=== PATIENT | female | born 2000 | race Caucasian/White ===

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

== ENCOUNTER 2018-10-22 22:35 | Emergency (ER) | payer OTHER, SELFPAY ==
[2018-10-22 22:36] VITALS: BP 122/84; PULSE 95; RESP 15; TEMP 36.7; O2SAT 98; BMI 21.1
--- NOTE | 2018-10-22 23:07 | CT_ITS ---
STUDY: CT BRAIN WITHOUT CONTRAST REASON FOR EXAM: Female, 18 years old. FRONTAL HEADACHE WITH RT FACIAL AND BILAT ARM NUMBNESS,NAUSEA,VOMITING AND DIZZINESS,SHIELDED HX:MIGRAINES TECHNIQUE: Transaxial CT imaging of the brain was performed without administration of intravenous contrast material. Individualized dose optimization techniques were used for this CT. COMPARISON: No relevant priors. FINDINGS: No evidence of intracranial hemorrhage, mass, infarct or hydrocephalus. No skull fracture. Mucosal thickening opacifies a single left posterior ethmoid air cell. [Visualized paranasal sinuses and mastoid air cells otherwise patent.] [Visualized extracranial soft tissues unremarkable.] CT/Brain/Head without Contrast IMPRESSION: Negative CT brain without contrast. Electronically Signed: Christophe Barahona, at 0:10 EDT Tel , Service support ,
--- NOTE | 2018-10-22 23:07 | EKG12_ITS ---
Test Reason : CP Blood Pressure : / mmHG Vent. Rate : 065 BPM Atrial Rate : 065 BPM P-R Int : 132 ms QRS Dur : 082 ms QT Int : 386 ms P-R-T Axes : 021 069 047 degrees QTc Int : 401 ms Sinus rhythm with marked sinus arrhythmia Otherwise normal ECG Confirmed by NERIS JHA, CARRIE ([id number]), book editor ROSETTA THOMPSON ([id number]) on 10/24/2018 1:33:07 PM Referred By: JEN Confirmed By:CARRIE CORDON MD
--- NOTE | 2018-10-22 23:07 | ED.VIS.HA ---
History of Present Illness Chief Complaint: Headache Informant: Patient Onset: Today - Around 6-7 hours Context: Gradual Timing: Continuous Quality: Dull - pressure Location: bifrontal/biparietal Current Severity: Moderate Maximum Severity: Moderate Worsened by: mildly worse w/ light that changes, like TV Relieved by: nothing Associated Symptoms: Nausea, Vomiting, Numbness - both hands and right side of face, Photophobia. Negative for: Visual Changes, Blurred Vision Narrative: Patient has multiple complaints and states she just got insurance and is here to have it all checked out. She is here primarily because of a headache, she states she has been having them since she was a child. She never gets numbness with her headaches, but today with this headache she has had numbness in both hands and her right face. She states that for the past 4 months she has been having sharp nonpleuritic chest pains that last 5 minutes or less every time, occur randomly with variety of situations including eating at times, and often are followed by left upper extremity numbness that then self resolves after multiple minutes. She did have 1 of those episodes earlier today, but she has none of that right now except for the headache. She states that the paresthesias are intermittent. She provides a history in terms of diagnoses, however. She states she is having heart pains that she needs checked out, tonsil stones that often make my neck hurt right here as she points to her submandibular lymph nodes which are not tender right now. Past Medical History - Allergies and Home Meds Allergies/Adverse Reactions: Allergies amoxicillin trihydrate [From Augmentin] Allergy (Verified 10/22/18 22:43) Unknown potassium clavulanate [From Augmentin] Allergy (Verified 10/22/18 22:43) Unknown Primary Care Physician: Altaf Whitten MD [Primary Care Provider] - Lives: With Family Smoking Status: Current every day smoker Drugs: None Review of Systems General: Denies: Chills, Fever, Sweats Eyes: Denies: Visual changes - bilaterally, Diplopia ENT: Denies: Rhinorrhea, Sore throat Cardiovascular: Reports: Chest pain. Denies: Palpitations, Heart racing Respiratory: Denies: Dyspnea, Cough, Dyspnea on exertion Gastrointestinal: Reports: Nausea, Vomiting. Denies: Abdominal pain, Diarrhea, Melena, Hematochezia Genitourinary: Denies: Dysuria, Hematuria, Frequency Musculoskeletal: Denies: Neck pain, Back pain, Swelling, Extremity Pain Skin: Denies: Rash, Wounds Neurological: Reports: Headache, Numbness. Denies: Weakness Physical Exam Vital Signs/Narrative: Vital Signs Temp Pulse Resp BP Pulse Ox 10/22/18 22:36 98.1 F 95 15 122/84 H 98 Inital Vital Signs reviewed: Yes General: Well nourished, Well developed, - - well-appearing, lit room, conversive Head: NC, AT Eyes: Perrl, EOMI, - - no objective photophobia ENT: Moist mucous membranes, No rhinorrhea, - - POP clear, symmetric, no trismus Neck: Supple, No Lymphadenopathy, Nontender, No Meningismus Cardiovascular: Regular rate, Regular rhythm, No murmurs, Normal S1, Normal S2. Negative for: Tachycardia Respiratory: No distress, CTA bilaterally, Chest nontender Abdomen: Soft, Nontender, Nondistended, Normal bowel sounds Back: Nontender, Normal Inspection Extremities: Nontender, No edema. Negative for: Calf Tenderness Skin: Normal color, No rash, No Trauma Neuro: Alert, Oriented x3, Cranial nerves II-XII grossly intact, Normal Strength, Normal Sensation, Normal DTR, Normal Gait Psychological: Normal affect, Normal Mood Diagnostic/Tx/Re-eval Clinical Impression(s) from Imaging Studies Brain CT 10/22/18 23:07 IMPRESSION: Negative CT brain without contrast. Electronically Signed: Christophe Barahona, at 0:10 EDT Tel , Service support , Laboratory Tests 10/22/18 10/22/18 Range/Units 23:10 23:10 WBC 7.2 (4.4-11.0) K/mm3 RBC 4.56 (4.2-5.4) M/mm3 Hgb 13.8 (12.0-15.0) g/dL Hct 41.8 (37-47) % MCV 91.7 (81-99) fL MCH 30.3 (27.0-32.0) pg MCHC 33.0 (32-36) g/dL RDW Std Deviation 40.8 (35.1-43.9) fl RDW Coeff of Pierre 12.1 (11.6-14.6) % Plt Count 173 (150-450) K/mm3 MPV 11.1 (6.2-12.0) fl Immature Gran % (Auto) 0.400 (0.0-0.9) % Neut % (Auto) 80.3 H (47-70) % Lymph % (Auto) 13.1 L (19-41) % [place]cd[place]ough % (Auto) 5.7 (0-10) % Eos % (Auto) 0.1 (0-5) % Baso % (Auto) 0.4 (0-1) % Absolute Neuts (auto) 5.7 (2.0-7.7) X10^3/uL Absolute Lymphs (auto) 0.94 (0.83-4.51) X10^3/uL Nucleated RBC % 0 (0-5) % Sodium 138 (136-145) mmol/L Potassium 4.0 (3.5-5.1) mmol/L Chloride 108 H (98-107) mmol/L Carbon Dioxide 24.0 (21.0-32.0) mmol/L Anion Gap 6 (5-15) BUN 7 (7-18) mg/dL Creatinine 0.73 (0.55-1.02) mg/dL Estim Creat Clear Calc 122.36 ml/min Est GFR (MDRD) Af Amer 131 (>60) mL/min Est GFR (MDRD) Non-Af 108 (>60) mL/min BUN/Creatinine Ratio 9.6 L (10-20) RATIO Glucose 91 (74-106) mg/dL Calcium 8.7 (8.5-10.1) mg/dL - Rhythm Strip Rhythm Strip: Sinus Rhythm Rate: 65 Ectopy: None - EKG Initial EKG Interpretation: Sinus Rhythm, No Acute Injury Pattern - normal ekg Prior: No Prior - Medical Decision Making Work-up including CT head is unremarkable. After Toradol and Reglan, her nausea is better but she still has a headache. She is well-appearing and stable for discharge home, will give her a dose of Tylenol prior to discharge, I do not think she needs any prescriptions at this time, her EKG is normal, no indication for a troponin given her symptoms and is young healthy female, esophageal etiologies could be causing her to have intermittent sharp chest discomfort, and could be also responsible for left arm discomfort, but with 5 minutes or less of pain that self resolves, occurs randomly, and without any other associated symptoms I do not think this is likely to be cardiac in etiology. Close outpatient follow-up advised. ED Disposition - Plan for ED Patient: Disposition: Home or Assisted Living Diagnosis: Intermittent chest pain, Cephalgia Instructions: HEADACHE, Unspecified Referrals: Altaf Whitten MD [Primary Care Provider] - 3-5 Days if not improving
[2018-10-22 23:16] LABS: Absolute Lymphocyte Count 0.94 X10^3/uL (0.83-4.51); Absolute Neutrophil Count 5.7 X10^3/uL (2.0-7.7); Basophil# 0.03 X10^3/uL; Basophil% 0.4 % (0-1); Eosinophil# 0.01 X10^3/uL; Eosinophils% 0.1 % (0-5); Hematocrit 41.8 % (37-47); Hemoglobin 13.8 g/dL (12.0-15.0); Lymphocyte # 0.94 X10^3/ul (4.0); Lymphocyte % 13.1 % (19-41); Mean Corpuscular Hgb 30.3 pg (27.0-32.0); Mean Corpuscular Volume 91.7 fL (81-99); Mean Platelet Vol. 11.1 fl (6.2-12.0); Monocyte# 0.41 X10^3/uL; Monocyte% 5.7 % (0-10); NRBC Flagged by Analyzer 0 % (0-5); Neutrophil # 5.74 X10^3/uL (2.7-7.7); Neutrophil % 80.3 % (47-70); Platelet Count 173 K/mm3 (150-450); RBC Distribution Width CV 12.1 % (11.6-14.6); RBC Distribution Width SD 40.8 fl (35.1-43.9); Red Blood Count 4.56 M/mm3 (4.2-5.4); White Blood Count 7.2 K/mm3 (4.4-11.0)
[2018-10-22] MEDS: Metoclopramide 10 MG/2 ML Vial IV (23:16)
[2018-10-22] MEDS: Ketorolac 30 MG/ML Syringe IV (23:16)
[2018-10-22 23:33] LABS: Anion Gap 6 (5-15); BUN 7 mg/dL (7-18); BUN/Creat Ratio 9.6 RATIO (10-20); Calcium,Total 8.7 mg/dL (8.5-10.1); Chloride 108 mmol/L (98-107); Creatinine, Serum 0.73 mg/dL (0.55-1.02); EST Glomerular Filtration Rate 108 mL/min (>60); Est Glom Filt Rate - Afr Amer 131 mL/min (>60); Estimated Creatinine Clearance 122.36 ml/min; Glucose 91 mg/dL (74-106); Sodium Level 138 mmol/L (136-145)
[2018-10-23 00:28] VITALS: BP 118/76; PULSE 84; RESP 18; O2SAT 95
[2018-10-23] MEDS: Acetaminophen 500 MG Tablet 1000 MG PO (00:31)
== END 2018-10-23 00:41 | disposition home or self-care (01) ==
PROVIDERS: Emergency Provider Emergency Medicine; Family Provider Family Medicine; PCP Family Medicine
DX: R07.89 Other chest pain (principal); R51 Headache; R11.2 Nausea with vomiting, unspecified; R20.0 Anesthesia of skin; F17.200 Nicotine dependence, unspecified, uncomplicated
CPT/HCPCS: 70450; 80048; 85025; 93005; 96374; 96375; 99284; A4216

== ENCOUNTER → 2019-01-09 12:20 | Outpatient (CLI) | payer OTHER, SELFPAY ==
[2019-01-09 13:51] LABS: hCG Titer Quant., Serum 15434 mIU/mL (1-3)
== END ==
PROVIDERS: Referring Provider Nurse Practitioner Women's Health; Visit Provider Nurse Practitioner Women's Health
DX: O20.0 Threatened abortion (principal); Z3A.00 Weeks of gestation of pregnancy not specified
CPT/HCPCS: 36415; 84702

== ENCOUNTER → 2019-01-17 10:33 | Outpatient (CLI) | payer OTHER, SELFPAY ==
[2019-01-17 09:59] VITALS: BMI 21.6
[2019-01-17 11:17] LABS: Absolute Lymphocyte Count 1.44 X10^3/uL (0.83-4.51); Absolute Neutrophil Count 4.3 X10^3/uL (2.0-7.7); Basophil# 0.03 X10^3/uL; Basophil% 0.5 % (0-1); Eosinophil# 0.03 X10^3/uL; Eosinophils% 0.5 % (0-5); Hematocrit 41.9 % (37-47); Hemoglobin 14.1 g/dL (12.0-15.0); Lymphocyte # 1.44 X10^3/ul (4.0); Lymphocyte % 22.8 % (19-41); Mean Corp Hgb Conc 33.7 g/dL (32-36); Mean Corpuscular Hgb 31.1 pg (27.0-32.0); Mean Corpuscular Volume 92.3 fL (81-99); Mean Platelet Vol. 10.6 fl (6.2-12.0); Monocyte# 0.47 X10^3/uL; Monocyte% 7.4 % (0-10); NRBC Flagged by Analyzer 0 % (0-5); Neutrophil # 4.33 X10^3/uL (2.7-7.7); Neutrophil % 68.5 % (47-70); Platelet Count 176 K/mm3 (150-450); RBC Distribution Width CV 11.5 % (11.6-14.6); RBC Distribution Width SD 39.1 fl (35.1-43.9); Red Blood Count 4.54 M/mm3 (4.2-5.4); White Blood Count 6.3 K/mm3 (4.4-11.0)
[2019-01-17 15:19] LABS: HIV - WCH Non-Reactive (Nonreactive); Hepatitis B Surface Antigen Non-Reactive (Nonreactive); Rubella IgG > 500.0 IU/mL
[2019-01-18 02:46] LABS: Rapid Plasmin Reagin (RPR) NONREACTIVE (NONREACTIVE)
== END ==
PROVIDERS: Referring Provider Nurse Practitioner Women's Health; Visit Provider Nurse Practitioner Women's Health
DX: Z34.90 Encounter for supervision of normal pregnancy, unspecified, unspecified trimester (principal)
CPT/HCPCS: 36415; 85025; 86592; 86703; 86762; 86850; 86900; 86901; 87340

== ENCOUNTER → 2019-01-19 12:23 | Outpatient (CLI) | payer OTHER, SELFPAY ==
[2019-01-10 14:39] VITALS: BMI 21.1
[2019-01-17 10:37] VITALS: BMI 21.1
--- NOTE | 2019-01-19 12:25 | US_ITS ---
STUDY: FIRST TRIMESTER OBSTETRICAL ULTRASOUND REASON FOR EXAM: Female, 18 years old . dating. LMP: November 27, 2018. TECHNIQUE: Transabdominal and Transvaginal TECHNICAL QUALITY: Adequate. PRIOR ULTRASOUND: None. FINDINGS: There is visualization of a single gestational sac in a normal intrauterine position. The mean sac diameter (MSD) measures 2.54 cm, indicating an estimated gestational age (EGA) of 7 weeks, 4 days. The gestational sac shape is within normal limits. There is a visualized yolk sac. The yolk sac measures 2.39 cm. The placenta is non-visualized. There is visualization of a live embryo. The crown-rump length (CRL) measures 1.54 cm, indicating an estimated gestational age (EGA) of 7 weeks, 6 days. There is demonstrated cardiac activity with a heart rate of 164 bpm. The estimated gestation age (EGA) by LMP is 7 weeks, 4 days. The estimated date of delivery (JEZ) by LMP is September 03, 2019. The estimated gestation age (EGA) by US is 7 weeks, 5 days. The estimated date of delivery (JEZ) by US is September 02, 2019. The uterus measures 9.1 cm x 6.2 cm x 4.4 cm. There is no demonstrated uterine fibroid. The cervix is closed. The right ovary measures 2.4 cm x 2.3 cm x 1.5 cm. There is no right ovarian cyst. There is no visualized right adnexal mass or complex lesion. The left ovary measures 3 cm x 2.6 cm x 2.2 cm. There is no left ovarian cyst. There is no visualized left adnexal mass or complex lesion. There is no fluid in the cul de sac. US/Init OB < 14Wks US IMPRESSION: Single live intrauterine gestation with a mean gestational age of 7 weeks and 4 days. Electronically Signed: Michoacano Campbell, at 8:29 EST , Service support ,
== END ==
PROVIDERS: Referring Provider Nurse Practitioner Women's Health; Visit Provider Nurse Practitioner Women's Health
DX: R58 Hemorrhage, not elsewhere classified (principal)
CPT/HCPCS: 76801

== ENCOUNTER → 2019-01-31 15:04 | Outpatient (CLI) | payer OTHER, SELFPAY ==
[2019-01-31 12:14] VITALS: BMI 21.6
[2019-01-31 18:10] LABS: Chlamydia Trachomatis by PCR Negative (Negative); Neisserai gonorrhoeae by PCR Negative (Negative); Probe Check PASS; Sample Adequacy Control PASS; Specimen Processing Control PASS
== END ==
PROVIDERS: Referring Provider Obstetrics & Gynecology; Visit Provider Obstetrics & Gynecology
DX: Z34.01 Encounter for supervision of normal first pregnancy, first trimester (principal); O26.899 Other specified pregnancy related conditions, unspecified trimester; Z3A.09 9 weeks gestation of pregnancy; Z67.91 Unspecified blood type, Rh negative
CPT/HCPCS: 87086; 87491; 87591

== ENCOUNTER 2019-04-04 17:12 | Emergency (ER) | payer OTHER, MEDICAID, SELFPAY ==
[2019-03-05 11:42] VITALS: BMI 21.6
[2019-04-04 17:15] VITALS: BP 118/76; PULSE 82; RESP 16; TEMP 36.6; O2SAT 100; BMI 23.3
--- NOTE | 2019-04-04 17:20 | ED.RN ---
pt declines to file workers comp, it takes away from our work bonus.
--- NOTE | 2019-04-04 17:21 | NURSING ---
pt on cell phone during triage process.
--- NOTE | 2019-04-04 17:43 | CT_ITS ---
STUDY: CT BRAIN WITHOUT CONTRAST REASON FOR EXAM: Female, 18 years old. LT SIDED HEADACHE, NUMBNESS LUE AND LT FACE. Pt shielded-4 months RADIATION DOSAGE (If Supplied By Facility): CTDIvol = ( 44.99 ) mGy, DLP = ( 745.49 ) mGycm TECHNIQUE: Transaxial CT imaging of the brain was performed without administration of intravenous contrast material. Individualized dose optimization techniques were used for this CT. COMPARISON: October 22, 2018 FINDINGS: Normal soft tissue structures. Normal calvarium. Normal size ventricles and extra-axial spaces for the patient''s age. Normal white matter tracts of the cerebral hemispheres. Normal basal ganglia and thalami. Normal brainstem. Normal cerebellum. There is no intracranial hemorrhage. There are no findings of an acute ischemic infarction. Normal visualized paranasal sinuses. CT/Brain/Head without Contrast IMPRESSION: Normal unenhanced CT scan of the brain. Electronically Signed: Joseluis Stallworth DO at 18:32 EST Tel [phone], Service support ,
--- NOTE | 2019-04-04 17:44 | ED.VIS.GEN ---
History of Present Illness Chief Complaint: Numb/Ting Detail of Chief Complaint: Numbness face and upper extremity on the left and right-sided headache Informant: Patient Onset: Today Context: Sudden Onset Timing: Intermittent - Duration of symptoms 10 minutes Quality: Numbness and loss of sensation Location: Left side of face and left upper extremity Current Severity: - - Resolved Maximum Severity: Severe Worsened by: Nothing Relieved by: Nothing Associated Symptoms: Right-sided headache Narrative: Patient is a 18-year-old G1, P0 female who has history of frequent headaches. She is never been diagnosed with migraines. She states she was at work. She put a box inside a box. Developed severe numbness left upper extremity and face. She states she could not feel anything with her left fingers. She then reports right-sided headache. She denied double vision, blurred vision or loss of vision. She denied ear pain, decreased hearing or ringing or ears. Denies trouble with speech or swallowing. She denied problems with balance. She denied problems with walking. Her polysomnography technologist is Dr. Dodie Soares. Dr. Dodie Soares prescribed Zofran and Reglan for her headaches. She states she is also had problems with nausea during the . She denies cardiac, respiratory or GI symptoms. Prior similar symptoms: No Recent Illness/Hospitalization: No - Past Medical History (1) Nausea/vomiting in Status: Acute Comment: fady reglan, discussed IVFs PRN. (2) Rh negative status during Status: Acute Comment: Rhogam at 28 wk and prn bleeding Past Medical History - Allergies and Home Meds Allergies/Adverse Reactions: Allergies amoxicillin trihydrate [From Augmentin] Allergy (Verified 03/05/19 11:41) Unknown potassium clavulanate [From Augmentin] Allergy (Verified 03/05/19 11:41) Unknown Primary Care Physician: Care Physician,No Primary [Primary Care Provider] - Prior records reviewed: Yes Surgical History: no surgical history Lives: With Family Smoking Status: Current every day smoker Alcohol: None Drugs: None Review of Systems General: Denies: Chills, Fever, Malaise, Subjective, Sweats Eyes: Denies: Visual changes - bilaterally, Blurred Vision - bilaterally, Diplopia ENT: Denies: Bilateral ear pain, Rhinorrhea, Sore throat Cardiovascular: Denies: Chest pain, Palpitations Respiratory: Denies: Dyspnea, Cough, Dyspnea on exertion Gastrointestinal: Denies: Abdominal pain, Nausea, Vomiting, Diarrhea, Melena, Hematochezia Genitourinary: Reports: Frequency. Denies: Dysuria, Hematuria Musculoskeletal: Denies: Myalgias, Arthralgias, Neck pain, Back pain, Swelling, Extremity Pain, -, - Skin: Denies: Rash, Wounds Neurological: Reports: Headache, Parasthesia, Numbness. Denies: Weakness Psych: Reports: Anxiety. Denies: Depression Hematologic: Denies: Easy bruising, Easy bleeding Physical Exam Vital Signs/Narrative: Vital Signs Temp Pulse Resp BP Pulse Ox 04/04/19 17:15 97.8 F 82 16 118/76 100 Inital Vital Signs reviewed: Yes General: Well nourished, Well developed, No Acute Distress Head: Normocephalic, Atraumatic Eyes: Perrl, EOMI, - - Endoscopic exam reveals normal cup-to-disc ratio. There is no papilledema.. Negative for: Pale conjunctiva, Scleral icterus ENT: Moist mucous membranes, No rhinorrhea, TM's clear Neck: Supple, Nontender, No lymphadenopathy, No JVD Cardiovascular: Regular rate, Regular rhythm, No murmurs Respiratory: No distress, CTA bilaterally, Chest nontender Abdomen: Soft, Nontender, Nondistended, Normal bowel sounds Back: Nontender, Normal Inspection Extremities: Nontender, No edema Skin: Normal color, No rash, No Trauma. Negative for: Cyanosis, Diaphoresis, Jaundice Neurological: Alert, Oriented x3, Cranial nerves II-XII grossly intact, Normal Strength, Normal Sensation, Normal DTR, Normal Gait, - - [place] testing is normal. Psychological: Normal affect, Tearful Diagnostic/Tx/Re-eval Impressions Brain CT 04/04/19 17:43 IMPRESSION: Normal unenhanced CT scan of the brain. Electronically Signed: Joseluis Stallworth DO at 18:32 EST Tel [phone], Service support , 04/04/19 17:43 Brain/Head without Contrast [CT] Stat Laboratory Results 04/04/19 04/04/19 17:58 17:58 WBC 7.5 RBC 4.14 L Hgb 13.0 Hct 38.3 MCV 92.5 MCH 31.4 MCHC 33.9 RDW Std Deviation 42.0 RDW Coeff of Pierre 12.4 Plt Count 152 MPV 11.6 Immature Gran % (Auto) 0.400 Neut % (Auto) 72.5 H Lymph % (Auto) 18.9 L [place] % (Auto) 7.5 Eos % (Auto) 0.4 Baso % (Auto) 0.3 Absolute Neuts (auto) 5.4 Absolute Lymphs (auto) 1.42 Nucleated RBC % 0 Differential Comment SCANNED Sodium 136 Potassium 4.0 Chloride 106 Carbon Dioxide 24.0 Anion Gap 6 BUN 7 Creatinine 0.69 Estim Creat Clear Calc 131.20 Est GFR (MDRD) Af Amer 138 Est GFR (MDRD) Non-Af 114 BUN/Creatinine Ratio 10.1 Glucose 80 Calcium 9.2 ET of the brain is normal. Blood work is normal. Since symptoms occurred with headache suspect this is a complex migraine. - Medical Decision Making With right-sided headache and left-sided numbness this may represent a complex migraine. This also could be related to anxiety or other cause. Was informed that 1747 that patient symptoms have reoccurred. She is complaining of right-sided headache. She has altered sensation left upper extremity. Her motor exam is abnormal. Unable to explained her symptoms however. Patient had headache with recurrence of numbness. Treated patient for migraine headache. Her neurologic symptoms resolved with resolution of her headache. She states she has seen Dr. Solis Samuels. And her polysomnography technologist is Dr. Dodie Soares. Recommended following up with both physicians and they will need to determine what can safely be given to you to treat your migraine headaches. ED Disposition - Plan for ED Patient: Disposition: Home or Assisted Living Diagnosis: Migraine with paresthesia Instructions: ED, Migraine (Classical) Referrals: Dodie Soares MD [STAFF PHYSICIAN] - Care Physician,No Primary [Primary Care Provider] - 3-5 Days Solis Mcdowell MD [NON-STAFF] - 3-5 Days
[2019-04-04 18:17] LABS: Absolute Lymphocyte Count 1.42 X10^3/uL (0.83-4.51); Absolute Neutrophil Count 5.4 X10^3/uL (2.0-7.7); Basophil# 0.02 X10^3/uL; Basophil% 0.3 % (0-1); Eosinophil# 0.03 X10^3/uL; Eosinophils% 0.4 % (0-5); Hematocrit 38.3 % (37-47); Lymphocyte # 1.42 X10^3/ul (4.0); Lymphocyte % 18.9 % (19-41); Mean Corp Hgb Conc 33.9 g/dL (32-36); Mean Corpuscular Hgb 31.4 pg (27.0-32.0); Mean Corpuscular Volume 92.5 fL (81-99); Mean Platelet Vol. 11.6 fl (6.2-12.0); Monocyte# 0.56 X10^3/uL; Monocyte% 7.5 % (0-10); NRBC Flagged by Analyzer 0 % (0-5); Neutrophil # 5.44 X10^3/uL (2.7-7.7); Neutrophil % 72.5 % (47-70); POSITIVE COUNT YES; Platelet Count 152 K/mm3 (150-450); RBC Distribution Width CV 12.4 % (11.6-14.6); Red Blood Count 4.14 M/mm3 (4.2-5.4); White Blood Count 7.5 K/mm3 (4.4-11.0)
[2019-04-04 18:18] LABS: Differential Indicated SCAN CRITERIA MET
[2019-04-04 18:21] LABS: Anion Gap 6 (5-15); BUN 7 mg/dL (7-18); BUN/Creat Ratio 10.1 RATIO (10-20); Calcium,Total 9.2 mg/dL (8.5-10.1); Chloride 106 mmol/L (98-107); Creatinine, Serum 0.69 mg/dL (0.55-1.02); EST Glomerular Filtration Rate 114 mL/min (>60); Est Glom Filt Rate - Afr Amer 138 mL/min (>60); Glucose 80 mg/dL (74-106); Sodium Level 136 mmol/L (136-145)
[2019-04-04 18:51] LABS: Differential Comment SCANNED
[2019-04-04] MEDS: Ketorolac 30 MG/ML Syringe 15 MG IV (20:26)
[2019-04-04] MEDS: DiphenhydrAMINE 50 MG/ML Syringe 25 MG IV (20:26)
[2019-04-04] MEDS: Metoclopramide 10 MG/2 ML Vial IV (20:27)
[2019-04-04 22:31] VITALS: BP 104/65; PULSE 80; RESP 16; O2SAT 100
== END 2019-04-04 22:32 | disposition home or self-care (01) ==
PROVIDERS: Emergency Provider Emergency Medicine
DX: G43.909 Migraine, unspecified, not intractable, without status migrainosus (principal); R20.2 Paresthesia of skin; R35.0 Frequency of micturition; F41.9 Anxiety disorder, unspecified; F17.200 Nicotine dependence, unspecified, uncomplicated
CPT/HCPCS: 70450; 80048; 85025; 96374; 96375; 99285; J7030; A4216

== ENCOUNTER → 2019-06-28 10:10 | Outpatient (CLI) | payer MEDICAID, SELFPAY ==
[2019-05-30 11:34] VITALS: BMI 23.3
[2019-06-28 10:47] LABS: Glucose Challenge Gest 1H 50g 106 mg/dL (70-140)
[2019-06-28 10:49] LABS: Absolute Lymphocyte Count 1.41 X10^3/uL (0.83-4.51); Absolute Neutrophil Count 4.7 X10^3/uL (2.0-7.7); Basophil# 0.02 X10^3/uL; Basophil% 0.3 % (0-1); Eosinophil# 0.06 X10^3/uL; Eosinophils% 0.9 % (0-5); Hematocrit 34.3 % (37-47); Hemoglobin 11.5 g/dL (12.0-15.0); Lymphocyte # 1.41 X10^3/ul (4.0); Lymphocyte % 20.6 % (19-41); Mean Corp Hgb Conc 33.5 g/dL (32-36); Mean Corpuscular Hgb 31.7 pg (27.0-32.0); Mean Corpuscular Volume 94.5 fL (81-99); Mean Platelet Vol. 10.6 fl (6.2-12.0); Monocyte# 0.59 X10^3/uL; Monocyte% 8.6 % (0-10); NRBC Flagged by Analyzer 0 % (0-5); Neutrophil % 68.7 % (47-70); Platelet Count 142 K/mm3 (150-450); RBC Distribution Width CV 11.7 % (11.6-14.6); RBC Distribution Width SD 40.2 fl (35.1-43.9); Red Blood Count 3.63 M/mm3 (4.2-5.4); White Blood Count 6.8 K/mm3 (4.4-11.0)
[2019-06-28 14:45] LABS: Amphetamine Urine VISTA NEGATIVE (<1000 ng/mL); Barbiturate Urine VISTA NEGATIVE (< 200 ng/mL); Benzodiazepine Urine VISTA NEGATIVE (< 200 ng/mL); Cocaine Urine VISTA NEGATIVE (< 300 ng/mL); Ecstacy Urine VISTA NEGATIVE (< 500 ng/mL); Methadone Urine VISTA NEGATIVE (< 300 ng/mL); PCP Urine VISTA NEGATIVE (< 25 ng/mL); THC Urine VISTA NEGATIVE (< 50 ng/mL); Vista UDS pH Range 6
== END ==
PROVIDERS: Nurse Practitioner Women's Health; Referring Provider Obstetrics & Gynecology; Visit Provider Obstetrics & Gynecology
DX: O26.891 Other specified pregnancy related conditions, first trimester (principal); Z3A.26 26 weeks gestation of pregnancy
CPT/HCPCS: 36415; 80307; 82950; 85025; 86850; 86900; 86901

== ENCOUNTER → 2019-08-10 14:39 | Outpatient (CLI) | payer MEDICAID, SELFPAY ==
[2019-08-10 14:08] VITALS: BMI 23.3
[2019-08-13 09:55] LABS: Hepatitis C Antibody Non-Reactive (Nonreactive)
== END ==
PROVIDERS: Visit Provider Nurse Practitioner Women's Health
DX: Z34.01 Encounter for supervision of normal first pregnancy, first trimester (principal)
CPT/HCPCS: 86803; 87081

== ENCOUNTER → 2019-08-24 15:12 | Outpatient (CLI) | payer MEDICAID, SELFPAY ==
[2019-08-24 15:06] VITALS: BMI 23.3
[2019-08-24 15:33] LABS: Absolute Lymphocyte Count 1.41 X10^3/uL (0.83-4.51); Absolute Neutrophil Count 5.5 X10^3/uL (2.0-7.7); Basophil# 0.02 X10^3/uL; Basophil% 0.3 % (0-1); Eosinophil# 0.03 X10^3/uL; Eosinophils% 0.4 % (0-5); Hematocrit 37.2 % (37-47); Hemoglobin 12.1 g/dL (12.0-15.0); Lymphocyte # 1.41 X10^3/ul (4.0); Lymphocyte % 18.4 % (19-41); Mean Corp Hgb Conc 32.5 g/dL (32-36); Mean Corpuscular Hgb 30.2 pg (27.0-32.0); Mean Corpuscular Volume 92.8 fL (81-99); Mean Platelet Vol. 11.8 fl (6.2-12.0); Monocyte# 0.59 X10^3/uL; Monocyte% 7.7 % (0-10); NRBC Flagged by Analyzer 0 % (0-5); Neutrophil # 5.54 X10^3/uL (2.7-7.7); Neutrophil % 72.3 % (47-70); Platelet Count 142 K/mm3 (150-450); RBC Distribution Width SD 40.5 fl (35.1-43.9); Red Blood Count 4.01 M/mm3 (4.2-5.4); White Blood Count 7.7 K/mm3 (4.4-11.0)
[2019-08-24 16:02] LABS: ALB/GLOB Ratio 0.7 RATIO (0.9-2.4); AST(SGOT) 15 U/L (15-37); Alanine Aminotransfer ALT/SGPT 12 U/L (13-56); Albumin, Serum 2.8 g/dL (3.2-5.0); Alkaline Phosphatase 219 U/L (45-117); Anion Gap 9 (5-15); BUN 5 mg/dL (7-18); BUN/Creat Ratio 6.1 RATIO (10-20); Calcium,Total 9.4 mg/dL (8.5-10.1); Chloride 106 mmol/L (98-107); Creatinine, Serum 0.82 mg/dL (0.55-1.02); EST Glomerular Filtration Rate 94 mL/min (>60); Est Glom Filt Rate - Afr Amer 114 mL/min (>60); Glucose 106 mg/dL (74-106); Potassium 3.8 mmol/L (3.5-5.1); Protein, Total 6.8 g/dL (6.4-8.2); Sodium Level 135 mmol/L (136-145)
== END ==
PROVIDERS: Referring Provider Obstetrics & Gynecology; Visit Provider Obstetrics & Gynecology
DX: R10.11 Right upper quadrant pain (principal)
CPT/HCPCS: 36415; 80053; 85025

== ENCOUNTER 2019-08-29 18:00 | Inpatient (IN) | payer MEDICAID, SELFPAY ==
[2019-07-20 08:13] VITALS: BMI 23.3
[2019-08-29] VITALS (44 sets, daily range): BP systolic 102–128; BP diastolic 51–81; PULSE 85–110; TEMP 36.2; O2SAT 89–100; BMI 23.3; BMI 26.8
[2019-08-29] MEDS: Lactated Ringers 1,000 ML 50 ML IV (18:30)
[2019-08-29] MEDS: Lactated Ringers 500 ML 999 ML IV (18:31)
[2019-08-29 18:49] LABS: Absolute Lymphocyte Count 1.03 X10^3/uL (0.83-4.51); Absolute Neutrophil Count 10.2 X10^3/uL (2.0-7.7); Basophil# 0.02 X10^3/uL; Basophil% 0.2 % (0-1); Eosinophils% 0.8 % (0-5); Hematocrit 34.6 % (37-47); Hemoglobin 11.4 g/dL (12.0-15.0); Lymphocyte # 1.03 X10^3/ul (4.0); Lymphocyte % 8.4 % (19-41); Mean Corp Hgb Conc 32.9 g/dL (32-36); Mean Corpuscular Hgb 30.3 pg (27.0-32.0); Monocyte# 0.88 X10^3/uL; Monocyte% 7.2 % (0-10); NRBC Flagged by Analyzer 0 % (0-5); Neutrophil # 10.18 X10^3/uL (2.7-7.7); Neutrophil % 82.7 % (47-70); Platelet Count 144 K/mm3 (150-450); RBC Distribution Width CV 12.3 % (11.6-14.6); RBC Distribution Width SD 40.9 fl (35.1-43.9); Red Blood Count 3.76 M/mm3 (4.2-5.4); White Blood Count 12.3 K/mm3 (4.4-11.0)
[2019-08-29] MEDS: fentaNYL-bupivacaine (epidural) 100 ML BAG EPIDURAL (19:49)
[2019-08-29 20:08] LABS: Probe Check PASS; Specimen Processing Control PASS
[2019-08-29] MEDS: Ondansetron 4 MG/2 ML Vial IV (21:30)
[2019-08-29] MEDS: Mag Hydrox/Al Hydrox/Simeth 30 ML UDC PO (23:23)
[2019-08-30] VITALS (34 sets, daily range): BP systolic 97–131; BP diastolic 58–83; PULSE 74–129; RESP 14–18; TEMP 36–37.2; O2SAT 92–100
[2019-08-30] MEDS: Lactated Ringers 1,000 ML 200 ML IV ×2 (00:11→05:26)
[2019-08-30] MEDS: Ondansetron 4 MG/2 ML Vial IV ×2 (01:17→05:23)
[2019-08-30] MEDS: fentaNYL-bupivacaine (epidural) 100 ML BAG EPIDURAL (01:23)
[2019-08-30] MEDS: Mag Hydrox/Al Hydrox/Simeth 30 ML UDC PO (03:46)
[2019-08-30] MEDS: proCHLORPERazine 10 MG/2 ML Vial IV (04:30)
--- NOTE | 2019-08-30 05:58 | PCM.HP.OB ---
- Problem List (1) Active labor at term Status: Acute (2) Nausea/vomiting in Status: Acute Comment: ermelinda shrestha, discussed IVFs PRN. (3) Rh negative status during Status: Acute Qualifiers: Comment: Rhogam at 28 wk and prn bleeding (4) Supervision of normal Status: Acute Qualifiers: Comment: PRR JEZ 09/03/2019 boy Riley Boyfriend-Curly (5) Status: Acute Qualifiers: Comment: declined genetic, carrier and NTD, normal anatomy (6) Kyphoscoliosis Status: Acute History Date of Admission: 08/30/19 Final JEZ: 09/03/19 Gestational age: 39 Weeks and 3 Days History of this : This is a 18 year-old, at 39 weeks gestational age presents IAL 5 cm dilated. She has had an uncomplicated and admits regular contractions increasing throughout the day with no vaginal bleeding or loss of fluid admits good movement. Medical History: Medical History (Last Reviewed 08/29/19 @ 11:52 by Thalia Tolbert) Anxiety F41.9 Surgical History: Surgical History (Last Reviewed 08/29/19 @ 11:52 by Thalia Tolbert) Ganglion cyst M67.40 H/O adenoidectomy Z90.89 History of removal of skin mole Z98.890, Z87.2 Myringotomy tube status Z96.22 Allergies amoxicillin trihydrate [From Augmentin] Allergy (Verified 08/29/19 18:13) Unknown potassium clavulanate [From Augmentin] Allergy (Verified 08/29/19 18:13) Unknown Home Medications: Home Medications ondansetron HCl 4 mg tablet 4 mg PO TID PRN #60 tab 01/10/19 multivitamin no.47-iron fum 27 mg-folate no.1 1 mg-dha 300 mg capsule 1 cap PO DAILY cap 01/17/19 metoclopramide HCl 10 mg tablet 10 mg PO TID PRN #90 tab 02/05/19 cyclobenzaprine 10 mg tablet 10 mg PO TID PRN #30 tab 07/20/19 Smoking Status: Former smoker NST - FHR Rate Baby A Baseline: 130 Variability:: Moderate Accelerations:: 15 x 15 Decelerations:: None NST Reactive:: Yes FHR Category:: Category I Uterine Activity:: Every 2 to 5 History Past Pregnancies: Past Pregnancies Delivery Date Name GA/ Weeks Outcome Route Wt Sex Labor Length Anesthesia Delivery Location Provider FOB Labs: Mom's Labs & Results 08/29/19 08/29/19 08/29/19 18:30 18:30 18:47 WBC 12.3 H RBC 3.76 L Hgb 11.4 L Hct 34.6 L MCV 92.0 MCH 30.3 MCHC 32.9 RDW Std Deviation 40.9 RDW Coeff of Pierre 12.3 Plt Count 144 L MPV 12.0 Immature Gran % (Auto) 0.700 Neut % (Auto) 82.7 H Lymph % (Auto) 8.4 L Parke % (Auto) 7.2 Eos % (Auto) 0.8 Baso % (Auto) 0.2 Absolute Neuts (auto) 10.2 H Absolute Lymphs (auto) 1.03 Nucleated RBC % 0 COVID-19 ([facility]ER) Negative Blood Type O NEGATIVE Antibody Screen POSITIVE H Antibody Identification ANTI-D Course Did the patient receive Yes care? Labs Blood Type: O RH: NEGATIVE RPR/VDRL/Syphilis Nonreactive Rubella status Immune HbSAg Negative Date Done: 01/17/19 Chlamydia Negative Gonorrhea Negative HIV/AIDS Non-Reactive Group B Strep: Negative Current Obstetrical History Gestational Diabetes No Incompetent Cervix No Infertility No IUGR No Macrosomia No Hypertension/Pre-eclampsia No Placenta Previa/Abruption No PTL/PROM No Uterine anomaly No Oligohydramnios No Polyhydramnios No Multiple gestation No Past Medical History Asthma No Diabetes No Hypertension No Heart disease No Mitral valve prolapse No Neurologic/Seizure disorder/ Yes: migraines Migraines Kidney disease No Liver disease No Varicosities No Clotting disorders/Hx of DVT No Thyroid Dysfunction No Other medical diseases No Psychiatric disorders Yes: anxiety Major trauma No Abnormal PAP smear No Sleep apnea No Mammogram in the last 2 years No Social History Marital Status: SINGLE Alleged father Curly Hx Smoking Yes Smoking Status Former smoker How long have you used n/a substances (years)? Expected Delivery Method: Spontaneous Vaginal Review of Systems Constitutional: Denies: Fever, Malaise Eyes: Denies: Blurred vision, Vision Change HEENT: Denies: Head Aches, Visual Changes Cardiovascular: Denies: Chest Pain, Palpitations Respiratory: Denies: Cough, Shortness of Breath, Wheezing Gastrointestinal: Denies: Abdominal Pain, Diarrhea, Nausea, Vomiting Genitourinary: Denies: Dysuria, Hematuria Musculoskeletal: Denies: Joint Pain, Muscle pain Skin: Denies: Lesions, Rash Neurological: Denies: Blurred vision, Focal weakness, Headaches Psychiatric: Denies: Anxiety, Depression Endocrine: Denies: Heat/ Cold Intolerance Hematologic/ Lymphatic: Denies: Easy Bruising, Easy Bleeding Physical Exam Vitals: Vital Signs Temp Pulse BP Pulse Ox 98.7 F 94 113/64 100 08/30/19 05:36 08/30/19 05:36 08/30/19 05:35 08/30/19 05:36 General: Alert, Cooperative, No apparent distress HEENT: Atraumatic, Normocephalic. Negative for: Thyromegaly, Lymphadenopathy Cardiovascular: Regular rate Lungs: Normal air movement Abdomen: Soft, Non Tender, Gravid Neurological: Deep Tendon Reflexes 2+/4 and Symmetrical, Neuro grossly intact. Negative for: Clonus DIRECTOR OF SPECIAL EVENTS: Normal external genitalia. Negative for: Vulvar lesions Estimated gestational size: Appropriate for gestational size Presentation: Cephalic Cervix Dilation (cm): 5 Assessment/Plan All Active Problems (Last Reviewed 08/29/19 @ 11:52 by Thalia Tolbert) Active labor at term (Acute) RUQ pain (Acute) Nausea/vomiting in (Acute) Rh negative status during (Acute) Supervision of normal (Acute) (Acute) Kyphoscoliosis (Acute) This is a 18 year-old, at 39 weeks gestational age presents IAL. Patient presents IAL, plan expectant management for , AROM clear fluid. Pain management: [plans epidural]. GBS negative. Management of any complications: Rh- plan RhoGam as needed [facility] and made any clinically relevant updates.
--- NOTE | 2019-08-30 06:00 | OP.PCM_ITS ---
Problem List (1) Active labor at term Status: Acute (2) Nausea/vomiting in Status: Acute Comment: ermelinda shrestha, discussed IVFs PRN. (3) Rh negative status during Status: Acute Qualifiers: Comment: Rhogam at 28 wk and prn bleeding (4) Supervision of normal Status: Acute Qualifiers: Comment: PRR JEZ 09/03/2019 enrique Lin Boyfrienrusty-Curly (5) Status: Acute Qualifiers: Comment: declined genetic, carrier and NTD, normal anatomy (6) Kyphoscoliosis Status: Acute (7) First degree perineal laceration during delivery Status: Acute (8) Vaginal delivery Status: Acute (9) Uterine atony, , without hemorrhage Status: Acute Vaginal Delivery Maternal Presentation: Active Labor -year-old G1, P0 at 39-1/2 weeks presents in active labor Amniotic Membrane Rupture Type: Artificial Amniotic Fluid Description: Clear Final JEZ: 09/03/19 Gestational age: 39 Weeks and 3 Days Date of Procedure: 08/30/19 Pre-Operative Diagnosis: In active labor Post-Operative Diagnosis: Same Surgery/ Procedure Performed: Spontaneous Vaginal Delivery Type of Anesthesia: Epidural Description of Procedure: Patient began pushing and delivered the head in the ISABEL presentation. The head was delivered atraumatically [and a loose nuchal cord ?1 was identified and easily reduced over the infant's head]. The anterior and posterior shoulders delivered without complication followed by the rest of the and the infant was placed on the maternal abdomen. Delayed cord clamping was employed for approximately 60 seconds. Cord was clamped and cut and gentle traction was applied to the cord and the placenta delivered spontaneously immediately following it was noted to be intact with three-vessel cord. The perineum and vagina were inspected and noted to have a first-degree perineal laceration repaired with 3-0 Vicryl repeat in the usual fashion. Mild uterine atony without hemorrhage was noted at delivery and treated with Pitocin and Methergine. Uterine massage. EBL was 400 cc. Patient and infant tolerated delivery well. Presentation: ISABEL Placental Delivery Description: Spontaneous Placenta Disposition: [facility] Cord Vessel Description: 3 Vessels Cord Entanglement: Around neck x 1, loose Estimated Blood Loss: 400 A gender: Male (1 minute): 8 (5 minute): 9 Episiotomy Description: None Laceration: 1st degree Medications given after delivery: IV Pitocin Complications: None Multi Select Codes - Urinary/Genital Urinary/Genital CPT Codes: 69766 Vaginal Delivery+ Care([facility])
[2019-08-30] MEDS: Oxytocin 30 units/NS 500 ml 30 UNITS/500 ML IV.SOLN 334 UNITS IV (06:32)
--- NOTE | 2019-08-30 06:45 | DCINST_ITS ---
Discharge Diet: No Restrictions Discharge Activity: Return to Normal Activity, May not drive while taking narcotic pain medications., May Shower May resume sexual activity in: 4-6 weeks Call your doctor if your incision/area has: Continuous Slow Oozing, Sudden Increased Bleeding, Increased Pain/ Swelling, Increased Redness, Foul Smelling Discharge Additional Instructions: If you experience any of the following, contact your healthcare provider. * Bleeding that soaks a pad every hour for 2 hours * Fever 100.4 or higher * Unrelieved incision or abdominal pain * Swelling, redness, discharge or bleeding from your incision or episiotomy site * Your incision begins to separate * Problems urinating (including inability to urinate or burning while urinating). * Visual changes * Severe headache * Flu-like symptoms * Pain or redness in one of both of your breasts * Pain, warmth, tenderness or swelling in your legs, especially the calf area * Frequent nausea and vomiting * Symptoms of depression or anxiety If you experience any of the following, call 911 or go to the nearest Emergency Room. * Chest pain * Problems breathing * Seizure activity * Partial or complete paralysis of a body part, slurred speech, weakness or drooping of the face, or a sudden inability to walk or hold your balance Allergies/Adverse Reactions: Allergies amoxicillin trihydrate [From Augmentin] Allergy (Verified 08/29/19 18:13) Unknown potassium clavulanate [From Augmentin] Allergy (Verified 08/29/19 18:13) Unknown Medications to take at Discharge ondansetron HCl 4 mg tablet 4 mg PO TID PRN #60 tab 01/10/19 multivitamin no.47-iron fum 27 mg-folate no.1 1 mg-dha 300 mg capsule 1 cap PO DAILY cap 01/17/19 metoclopramide HCl 10 mg tablet 10 mg PO TID PRN #90 tab 02/05/19 cyclobenzaprine 10 mg tablet 10 mg PO TID PRN #30 tab 07/20/19 Please Follow Up With: Dodie Soares MD - [phone] When: Call to make an appointment with your doctor in 6 weeks. If you had elevated Blood pressure or 4th degree laceration you will need to be seen in 2 weeks. Primary Care Physician: Care Physician,No Primary [Primary Care Provider] - Test Results: Test results from this visit will be discussed in further detail at your follow- up appointment, if applicable.
[2019-08-30] MEDS: Naproxen 250 MG Tablet 500 MG PO ×2 (07:44→20:23)
[2019-08-30] MEDS: 0.9% Saline Lock 10 ML Syringe IV (10:03)
--- NOTE | 2019-08-30 10:09 | NURSING ---
Notified Swati at Dr. Soares's of plan to order SSC due to MOB/FOB interaction with davidson. FOB held pt's leg for 2 pushes, and then said that he wasn't going to stand anymore. Stated that he just doesn't do well when he gets messed up. Appeared to be talking about his sleep schedule. He sat on the couch for a while while Salima pushed, and then fell asleep for awhile. This nurse woke him up for delivery. He sat on the couch for delivery, and through beginning of recovery. He was up at the bedside for appx. 5-10 min. talking to the patient before leaving to go home to sleep ~45 min. after delivery. Salima held the baby, doing [id number] right after delivery. She was willing to breastfeed, and a little hands-on with that at times. Pt. reported being very tired. Told that she could rest her eyes with me in the room, but she was worried about falling asleep. She fed the infant for a little over an hour. Infant was placed on the radiant warmer for assessment and meds. When weighing infant, mother was noted to be resting with her eyes closed. She opened them when the started crying, and this nurse asked if she wanted a picture of his weight. Pt. stated It's ok, just tell me what it is. Pt. sleeping while nursing finishing assessment. Infant placed next to pt's bed. Infant heard crying a little while later, and nursing into room. Mother in bed just looking at in crib. Mother had reported that she has not had sleep since 0300 on 08/29/19, except for anout 2 hrs through night. out of room with nursing for mother to rest. Out of room for appx. 35 min, settled, and was taken back to room. Salima also asking if she is allowed to have any other visitors. Reminded that only Curly was allowed to come and be with her while she is here. Offered that some family members have been viewing babe's through window. Pt. reports that her mother really wants to come and see the baby, but that she isn't ready to deal with her yet. Per Swati in the office, when Salima was seen in office 08/29/2019 in early labor, her mother became upset with her because she chose to have FOB with her vs. pt's mother. Reported there was high anxiety regarding this in office.
[2019-08-30] MEDS: Prenatal Vits Tablet 1 TABLET PO (16:32)
[2019-08-30] MEDS: Acetaminophen 500 MG Tablet 1000 MG PO (23:29)
[2019-08-31 04:30] VITALS: BP 109/73; PULSE 97
[2019-08-31 04:31] VITALS: BP 109/73; PULSE 97; RESP 16; TEMP 36.4
[2019-08-31] MEDS: Naproxen 250 MG Tablet 500 MG PO (06:48)
[2019-08-31] MEDS: Acetaminophen 500 MG Tablet 1000 MG PO (08:13)
[2019-08-31 08:16] VITALS: BP 99/66; PULSE 86; RESP 16; TEMP 36.6; O2SAT 99
[2019-08-31 08:17] VITALS: BP 99/66; PULSE 86
[2019-08-31 13:31] VITALS: BP 112/67; PULSE 100
[2019-08-31 13:40] VITALS: BP 112/67; PULSE 82; RESP 14; TEMP 36.3
--- NOTE | 2019-08-31 13:41 | PCM.PN.OB ---
Patient Problems: Active and Suspected Problems (Last Reviewed 08/29/19 @ 11:52 by Thalia Tolbert) Active labor at term (Acute) First degree perineal laceration during delivery (Acute) Vaginal delivery (Acute) Uterine atony, , without hemorrhage (Acute) Subjective: doing well no complaints pain controlled no CP SOB N V ambulating well tolerating po lochia moderate, going well - Physical Exam Vitals/I&O's: Vital Signs Temp Pulse Resp BP Pulse Ox 97.8 F 100 16 112/67 99 08/31/19 08:16 08/31/19 13:31 08/31/19 08:16 08/31/19 13:31 08/31/19 08:16 Oxygen Delivery Method Room Air Weight: 176 lb 5.917 oz Body Mass Index (BMI) 26.8 Intake and Output for Last 24 Hours 08/29/19 08/30/19 08/31/19 23:59 23:59 23:59 Intake Total 1250.83 / 1250.83 2089.17 / 2089.17 Output Total 2250 / 2250 Balance 1250.83 / 1250.83 -160.83 / -160.83 Current Medications Acetaminophen (Tylenol) 1,000 mg PO Q8H PRN PRN PRN Reason: Pain Score 1-3/10 Last Admin: 08/31/19 08:13 Dose: 1,000 mg Documented by: Bisacodyl (Dulcolax) 10 mg RECTAL UD PRN PRN Reason: If no BM Calcium Carbonate (Tums) 1,000 mg PO Q4H PRN PRN PRN Reason: INDIGESTION Dibucaine (Dibucaine) 1 applic TOPICAL TID PRN PRN; Protocol PRN Reason: Discomfort Hydrocortisone (Hytone) 1 applic TOPICAL TID PRN PRN; Protocol PRN Reason: Discomfort Methylergonovine Maleate (Methergine) 0.2 mg IM X1 PRN PRN Reason: Excess bleeding/uterine atony Naproxen (Naprosyn) 500 mg PO Q8H PRN PRN PRN Reason: Pain Score 1-3/10 Last Admin: 08/31/19 06:48 Dose: 500 mg Documented by: Ondansetron HCl (Zofran) 4 mg IV Q4H PRN PRN PRN Reason: Nausea Oxycodone HCl (Oxyir) 5 - 10 mg PO Q4H PRN PRN PRN Reason: Pain Score 4-10/10 Multivit/Folic Acid/Iron (Prenatabs Fa) 1 tablet PO DAILY@1200 LASHAY Last Admin: 08/31/19 13:38 Dose: Not Given Documented by: Senna/Docusate Sodium (Senokot-S, Alice-Colace) 1 - 2 tablet PO DAILY PRN PRN PRN Reason: Constipation Simethicone (Mylicon) 80 mg PO PCHS PRN PRN Reason: Indigestion/Stomach pain Sodium Chloride () 5 - 15 ml IV UD PRN PRN Reason: SALINE FLUSH Last Admin: 08/30/19 10:03 Dose: 10 ml Documented by: Medical Necessity - Tobacco Use Smoking Status: Former smoker Assessment/Plan All Active Problems (Last Reviewed 08/29/19 @ 11:52 by Thalia Tolbert) Active labor at term (Acute) First degree perineal laceration during delivery (Acute) Vaginal delivery (Acute) Uterine atony, , without hemorrhage (Acute) RUQ pain (Acute) Nausea/vomiting in (Acute) Rh negative status during (Acute) Supervision of normal (Acute) (Acute) Kyphoscoliosis (Acute) s/p PPD # 1 1. routine post delivery care 2. breast feeding- support given 3. rh positive 4. rubella immune
== END 2019-08-31 15:10 | disposition home or self-care (01) | DRG 560 ==
LOC: WPOUT 18:04 → WP 18:04
PROVIDERS: Admitting Provider Obstetrics & Gynecology; Referring Provider Obstetrics & Gynecology; Visit Provider Obstetrics & Gynecology
DX: O69.81X0 Labor and delivery complicated by cord around neck, without compression, not applicable or unspecified (principal); Z37.0 Single live birth; Z3A.39 39 weeks gestation of pregnancy; M41.9 Scoliosis, unspecified; Z87.891 Personal history of nicotine dependence; O26.893 Other specified pregnancy related conditions, third trimester; Z67.91 Unspecified blood type, Rh negative; O70.0 First degree perineal laceration during delivery; O62.2 Other uterine inertia
CPT/HCPCS: 59025; 59050; 85025; 86850; 86870; 86900; 86901; 87635; 99218; G2023; J7120; A4216; G0378; J2405; U0003

== ENCOUNTER → 2019-10-15 | Outpatient (CLI) | payer MEDICAID, SELFPAY ==
[2019-10-15 14:32] VITALS: BMI 26.8
[2019-10-18 10:18] LABS: HPV Reflexed? NOT INDICATED
== END | disposition home or self-care (01) ==
LOC: LABSPEC 16:09
PROVIDERS: Referring Provider Obstetrics & Gynecology; Visit Provider Obstetrics & Gynecology
DX: Z12.4 Encounter for screening for malignant neoplasm of cervix (principal)
CPT/HCPCS: 88175; G0145

== ENCOUNTER → 2020-05-05 | Outpatient (CLI) | payer MEDICAID, SELFPAY ==
[2020-05-05 15:20] VITALS: BMI 27.8
[2020-05-08 06:07] LABS: Chlamydia By Nucleic Acid AMP Negative (Negative)
[2020-05-08 08:28] LABS: Gonococcus By Nucleic Acid AMP Negative (Negative)
== END | disposition home or self-care (01) ==
LOC: LABSPEC 16:40
PROVIDERS: Referring Provider Nurse Practitioner Women's Health; Visit Provider Nurse Practitioner Women's Health
DX: Z11.3 Encounter for screening for infections with a predominantly sexual mode of transmission (principal)
CPT/HCPCS: 87491; 87591

== ENCOUNTER → 2020-05-22 | Outpatient (CLI) | payer MEDICAID, SELFPAY ==
[2020-03-26 15:09] VITALS: BMI 27.1
[2020-05-05 15:20] VITALS: BMI 27.8
== END | disposition home or self-care (01) ==
LOC: LABSPEC 16:26
PROVIDERS: PCP Family Medicine; Referring Provider Otolaryngology; Visit Provider Otolaryngology
DX: Z11.59 Encounter for screening for other viral diseases (principal)
CPT/HCPCS: 87635; C9803; U0002

== ENCOUNTER → 2020-05-26 | Outpatient (CLI) | payer MEDICAID, SELFPAY ==
[2020-05-05 15:20] VITALS: BMI 27.8
--- NOTE | 2020-05-26 10:17 | TONS_PTH ---
PATIENT: ANIYAH HUMPHREYS LOC: [facility] U#:[id number] AGE/SX: 19/ ROOM: RE05/26/[address]: Dr. Marquez Sheridan MD : 2000 BED: DIS: 05/26/2020 SPEC #: [id number] RECD: 05/27/20 15:00 STATUS: CATRACHITA FUENTES #: [id number] ALF: 05/26/20 10:[address]: Marquez Sheridan DEPT: SURGICAL PATHOLOGY RECD BY: Trinity Hand ENTERED: 05/28/20 08:42 SP TYPE: TONSILS OTHR DR: Dr. Toni De Leon MD [facility] Tissues: Tonsil, NOS Procedures: Surgery Specimen Level III HEADER OPERATION: Tonsillectomy PRE-OP DIAGNOSIS: Chronic tonsillitis, hypertrophy of tonsils TISSUE SUBMITTED: Tonsils, right pinned MICROSCOPIC DIAGNOSIS Right and left tonsils, bilateral tonsillectomies: Benign lymphoid follicular hyperplasia, consistent with chronic tonsillitis. Organisms consistent with actinomyces. AM:christy 05/29/2020 MICROSCOPIC DESCRIPTION Slides are reviewed. GROSS DESCRIPTION Received is one container labeled with the patient's name and designated tonsils - pin on right are two tonsils that in aggregate weigh 4 gm. The right tonsil has a pin on it and measures 2.5 x 1.6 x 1 cm. The left tonsil measures 2.3 x 1.5 x 1 cm. Both tonsils are similar in appearance. The external surfaces are pink-douglas, smooth, glistening and somewhat lobulated. Focally they are hemorrhagic, granular and bear cautery artifact. Serial cross sections through the tonsils reveal normal tonsillar architecture. Sections are submitted in two cassettes as follows: 1 - right tonsil, 2 - left tonsil. / DARLENE:christy 05/28/20 TC:5 CPT: 27344 x2
== END | disposition home or self-care (01) ==
LOC: LABSPEC 05-28 13:29
PROVIDERS: PCP Family Medicine; Referring Provider Otolaryngology; Visit Provider Otolaryngology
DX: J35.01 Chronic tonsillitis (principal)
CPT/HCPCS: 88304

== ENCOUNTER 2021-10-21 02:30 | Emergency (ER) | payer MEDICAID, SELFPAY ==
[2021-10-21 02:31] VITALS: BP 129/71; PULSE 90; RESP 15; TEMP 35.7; O2SAT 100; BMI 24.5
--- NOTE | 2021-10-21 02:37 | RAD_ITS ---
EXAM: XR RIGHT SECOND FINGER, 2 VIEWS CLINICAL INDICATION: trauma trauma TECHNIQUE: Frontal, lateral and oblique views of the second finger of the right hand. This report was created using [employer] report generation technology. COMPARISON: None. FINDINGS: BONES/JOINTS: There is an acute traumatic fracture of the tuft of the distal phalanx, without significant malalignment. Preservation of the joint space. No sclerotic or destructive changes observed. SOFT TISSUES: There is nonspecific soft tissue swelling. No radiopaque foreign body. RAD/Finger(s) Min 2 Views IMPRESSION: Fracture of the tuft of the distal phalanx. Electronically Signed: Simón Macdonald MD at 3:14 EDT Reading Location ID and State: [facility] / [place] , Service support ,
[2021-10-21] MEDS: Diphth,Pertuss(Acell),Tet Vac 0.5 ML Vial IM (02:48)
--- NOTE | 2021-10-21 02:57 | EDS_ITS ---
HPI History of Present Illness Chief Complaint: Upper Extremity Injury Informant: patient Narrative Narrative: 21-year-old female sustained a crush injury to her distal right index finger just prior to arrival. She was hooking up a trailer when this occurred. Un known last tetanus. Tetanus Immunization: Unknown [facility] Medical History (Updated 10/21/21 @ 03:[address] Jared Schultz DO) Anxiety Home Medications levonorgestrel 20.1 mcg/24 hrs (6 yrs) 52 mg intrauterine device (Liletta) 1 device intrauterine ONCE 05/05/20 [History Last Taken Unknown] cephalexin 500 mg capsule 500 mg PO Q6 #28 CAPSULES 10/21/21 [Rx Last Taken Unknown] hydrocodone-acetaminophen 5-325mg 5mg-325mg 1 tab PO Q6H PRN PRN Pain 3 days #10 TABLETS 10/21/21 [Rx Last Taken Unknown] Allergy/AdvReac Type Severity Reaction Status Date / Time amoxicillin trihydrate Allergy Unknown Verified 10/21/21 02:34 [From Augmentin] potassium clavulanate Allergy Unknown Verified 10/21/21 02:34 [From Augmentin] Family History Grandmother Cancer Ovarian Surgical History Ganglion cyst H/O adenoidectomy History of removal of skin mole Myringotomy tube status Social History adopted: No household members: significant other housing: house current occupational status: employed current occupation: [employer] pets and animals: No history of recent travel: Yes out of state: Yes sexually active: Yes Smoking Status: Current every day smoker tobacco type: cigarettes second hand exposure: No alcohol intake: never substance use type: does not use caffeine: Yes Type: carbonated beverages Number of servings: 5 and tea seatbelt use: never do you feel safe at home: Yes additional social history: ADDISON RUBIO ED Constitutional Constitutional ED: Denies chills or weight loss Eyes Eyes: Denies change in vision or diplopia ENT ENT ED: Denies ear pain, rhinorrhea or sore throat Cardiovascular Cardiovascular: Denies chest pain, orthopnea, palpitations or racing heartbeat Respiratory/Chest Respiratory/Chest: Denies cough, dyspnea or orthopnea Gastrointestinal Gastrointestinal: Denies abdominal pain, diarrhea, nausea or vomiting Genitourinary Genitourinary ED: Denies dysuria, hematuria or urinary frequency Musculoskeletal Musculoskeletal: Reports other Details: See history of present illness ; Denies arthralgias or myalgias Integumentary Denies abscess or rash Neurologic Neurologic: Denies headache(s) or weakness Psychiatric Psychiatric: Denies anxiety, depression, suicidal ideation or suicidal thoughts Endocrine Endocrinology: Denies polydipsia, polyphagia or polyuria Allergic/Immunologic Allergic/Immunologic ED: Denies mouth swelling, tongue swelling or urticaria EXAM Physical Exam Const Vital Signs: 10/21/21 02:31 Temperature 96.3 F L Temperature Source Oral Pulse Rate 90 Respiratory Rate 15 Blood Pressure 129/71 H Blood Pressure Mean 90 Pulse Ox 100 Oxygen Delivery Method Room Air Positive well nourished and well developed General Appearance ED: well developed HEENT Reports normocephalic, head/scalp atraumatic and moist mucous membranes Eyes PERRL and EOMs intact bilaterally Neck full ROM, no lymphadenopathy, supple and no JVD Resp normal respiratory effort and clear to auscultation bilaterally Cardio regular rate, regular rhythm and no murmurs GI normal to inspection, nondistended, normoactive bowel sounds and non-tender Palpation: soft Back/Spine no CVA tenderness and normal ROM Extremity Extremity Narrative: The distal tip of the index finger demonstrates a macerated 4 mm laceration. There is mild venous bleeding. There is no subungual hematoma. The laceration is just anterior to the fingernail. General Extremety ED: Negative for edema General Extremity: Negative for edema Neuro oriented x3 and CN's II-XII intact bilaterally Sensorium / Orientation: alert Motor Exam: strength 5/5 throughout Psych mental status grossly normal Mood & Affect: Negative for depressed or tearful Skin no rashes or lesions noted and no wounds MDM MDM MDM Narrative Medical decision making narrative: My interpretation of the plain films of the right index finger is a distal tuft fracture. Tetanus was updated with Adacel. Patient underwent digital block using bupivacaine. Wound was washed. I do not believe him to be able to sew this as there is very little skin between the laceration and the fingernail. In addition the wound is very macerated. Speaking with the patient we had shared decision making to dress the wound and let it heal by secondary intention. I think this is reasonable. Because of the associated fracture in the healing process I will be placing her on antibiotics. Also write for pain medication. Patient is given a aluminum foam splint. Return if worsening or concerns Discharge Plan Triage Chief Complaint: Upper Extremity Injury ED Provider: Jared Schultz Dx/Rx/DC Orders Clinical Impression: Open fracture of tuft of distal phalanx of finger, Crushing injury of distal finger, Finger laceration Instructions: ED Crush Injury, Hand, ED Fracture, Finger, Open Prescriptions: New hydrocodone-acetaminophen [hydrocodone-acetaminophen] 5-325 mg tablet 1 tab PO Q6H PRN PRN (Reason: Pain) 3 Days Qty: 10 0RF cephalexin [cephalexin] 500 mg capsule 500 mg PO Q6 Qty: 28 0RF No Action Liletta 20.1 mcg/24 hrs (6 yrs) 52 mg intrauterine device 1 device INTRA-UTER ONCE Rx Instructions: as a single dose Primary Care Provider: Toni De Leon Referrals: Toni De Leon MD [Primary Care Provider] - 1-2 Weeks Disposition Disposition: Home, Self Care
[2021-10-21] MEDS: Bupivacaine Mpf 0.5% 30 ML VIAL INFILT (03:26)
[2021-10-21] MEDS: Cephalexin 250 MG Capsule 500 MG PO (03:31)
== END 2021-10-21 03:37 | disposition home or self-care (01) ==
PROVIDERS: Emergency Provider Emergency Medicine; PCP Family Medicine; Visit Provider Emergency Medicine
DX: S62.630B Displaced fracture of distal phalanx of right index finger, initial encounter for open fracture (principal); S67.190A Crushing injury of right index finger, initial encounter; X58.XXXA Exposure to other specified factors, initial encounter; F17.210 Nicotine dependence, cigarettes, uncomplicated; Z23 Encounter for immunization
CPT/HCPCS: 64450; 73140; 90471; 99285

== ENCOUNTER 2022-04-14 10:24 | Outpatient (RCR) | payer MEDICAID, SELFPAY ==
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
--- NOTE | 2022-06-10 11:57 | HP.PT.NRP ---
ANIYAH HUMPHREYS was seen in my office for initial evaluation on 04/14/22. The following Plan of Care was established for this patient: Initial Frequency: 2-3x /Week Initial Duration: 4-6 Weeks Patient/Client Instruction: Educate patient on: Condition, Plan of Care, Risk Factors For the Purpose of:: To improve self management Therapeutic Exercise to Include: Strength training, Body mechanics, Postural training, Flexibilty training, Neuromotor development, In an aquatic setting, Dynamic Lumbar Stabilization, Scapular Strength/Stabilization For the Purpose of:: To decrease pain, To increase ROM, To improve muscle performance and motor function, To increase tolerance to activity/condition/position, To improve ability of physical actions for home/community/work/leisure TENS: Yes IF ES: Yes Cryotherapy (ice pack, ice massage): Yes Thermo therapy (hot pack): Yes Ultrasound (thermal/non thermal): Yes For the Purpose of:: To decrease pain, To improve nutrient delivery to tissue This patient was last seen in our office 04/14/22. Pertinent comments regarding their Physical therapy will appear below: This patient has not returned to Physical Therapy and is appropriate to return to MD for further follow-up as needed. At this point I will be discontinuing this patient from physical therapy. I would be happy to see this patient again in the future if found appropriate by the physician. Thank you! Gloria Garcia, PT, Cert MDT Balance/Gait/Functional tests - Balance/Special Test Scores Oswestry Neck Score: 14
== END 2022-04-14 19:00 | disposition home or self-care (01) ==
LOC: PT 10:24
PROVIDERS: PCP Family Medicine
DX: G89.29 Other chronic pain; M40.204 Unspecified kyphosis, thoracic region
CPT/HCPCS: 97162

== ENCOUNTER 2022-04-18 17:31 | Emergency (ER) | payer MEDICAID, SELFPAY ==
[2022-04-18 17:32] VITALS: BP 93/52; PULSE 68; RESP 16; TEMP 36.2; O2SAT 100; BMI 25.1
--- NOTE | 2022-04-18 17:48 | RAD_ITS ---
STUDY: X-RAY - RIGHT TIBIA AND FIBULA REASON FOR EXAM: Female, 21 years old. Patient with hepatopetal and 12 foot ladder with limited down the wall patient falling onto concrete. Pain in the bilateral legs and right foot. TECHNIQUE: 2 view(s) of the tibia and fibula were obtained. COMPARISON: None. FINDINGS: Normal visualized tibia. Normal visualized fibula. There is no acute fracture, dislocation or destructive osseous pathology. The knee and ankle appear intact. The soft tissue structures are unremarkable. RAD/Tibia & Fibula 2 Views IMPRESSION: Normal x-ray examination of the right tibia and fibula. Electronically Signed: Faisal Mckeon DO at 19:04 EST ,
--- NOTE | 2022-04-18 17:49 | ED.VIS.FALL ---
HPI HPI - Fall History of Present Illness Chief Complaint: Fall Informant: patient Narrative Narrative: Fall down 12 steps bladder prior to arrival. States leaned against a barn door when he skidded straight down. She landed on her knees and elbows. No head injuries. No loss of conscious. No anticoagulation medicines. Was able to get up and come by private vehicle however increasing pain right lower leg and foot. Tetanus was this past summer. History of kyphosis of the back therefore difficulty movement of the arm such chronic. No new symptoms there. No chest or abdominal pain. No headache. No neck pain. Pain to the right leg. Tetanus Immunization: <5 years [facility] Medical History (Updated 04/18/22 @ 20:[address] Kuldeep Emanuel DO) Anxiety Home Medications hydrocodone-acetaminophen 5-325mg 5mg-325mg 1 tab PO Q6H PRN PRN Pain 3 days #12 TABLETS 04/18/22 [Rx Last Taken Unknown] Allergy/AdvReac Type Severity Reaction Status Date / Time amoxicillin trihydrate Allergy Unknown Verified 04/18/22 17:34 [From Augmentin] potassium clavulanate Allergy Unknown Verified 04/18/22 17:34 [From Augmentin] Family History Grandmother Cancer Ovarian Surgical History Ganglion cyst H/O adenoidectomy History of removal of skin mole Myringotomy tube status Social History adopted: No household members: significant other housing: house current occupational status: employed current occupation: [email or web address] pets and animals: No history of recent travel: Yes out of state: Yes sexually active: Yes Smoking Status: Current every day smoker tobacco type: cigarettes second hand exposure: No alcohol intake: never substance use type: does not use caffeine: Yes Type: carbonated beverages Number of servings: 5 and tea seatbelt use: never do you feel safe at home: Yes additional social history: FAMILIA- Curly RUBIO ED Constitutional Constitutional ED: Denies chills, fever(s) or sweats Eyes Eyes: Denies change in vision ENT ENT ED: Denies dysphagia or sore throat Cardiovascular Cardiovascular: Denies chest pain, leg edema, palpitations or racing heartbeat Respiratory/Chest Respiratory/Chest: Denies cough, dyspnea or dyspnea on exertion Gastrointestinal Gastrointestinal: Denies abdominal pain, diarrhea, nausea or vomiting Genitourinary Genitourinary ED: Denies dysuria, hematuria or urinary frequency Musculoskeletal Musculoskeletal: Reports extremity pain; Denies back pain or neck pain Integumentary Denies rash or wounds Neurologic Neurologic: Denies headache(s), paresthesias or weakness EXAM Physical Exam Const Vital Signs: 04/18/22 17:32 04/18/22 18:02 Temperature 97.2 F L Temperature Source Temporal Pulse Rate 68 Respiratory Rate 16 Respiratory Effort Normal Non-Labored Blood Pressure 93/52 L Blood Pressure Mean 65 Pulse Ox 100 Oxygen Delivery Method Room Air Positive well nourished and well developed Constitutional Narrative: GCS 15, uncomfortable shaking due to pain to the right lower leg. General Appearance ED: well developed HEENT Reports TM's normal bilaterally and moist mucous membranes normocephalic and atraumatic Eyes PERRL, EOMs intact bilaterally and conjunctivae normal General Eye ED: Yes normal appearance of both eyes Neck no lymphadenopathy and supple General: Negative for tenderness Chest Wall Chest: Negative for tenderness Resp normal respiratory effort and normal air movement Effort and Inspection: symmetric chest movement; Negative for respiratory distress Cardio regular rate, regular rhythm and no murmurs Peripheral Pulses: pulses 2+ throughout GI normal to inspection, nondistended, normoactive bowel sounds and non-tender Palpation: Negative for guarding or rebound tenderness present Back/Spine no CVA tenderness and no thoracic nor lumbar tenderness Back/Spine Narrative: No step-offs. Extremity Extremity Narrative: Right lower extremity: Negative logroll. No patellar tenderness, no deformities there is a 3 cm horizontal laceration infrapatellar towards the insertion, patient had decreased extensor mechanism, there was bleeding controlled with pressure. There is no deformities. There is no ankle tenderness. There is midfoot tenderness. There is no deformities. Skin intact distally. Neuro vas intact distally. Left lower extremity: Negative logroll, knee extensor mechanism intact. There is abrasion at the anterior proximal tibia with no active bleeding. No ankle or foot tenderness. Neuro vas intact distally. Upper extremity full range of motion upper extremity without any pain or discomfort. Pulses intact distally. General Extremety ED: Negative for edema or tenderness General Extremity: Negative for edema Neuro oriented x3 and no sensory deficits noted Sensorium / Orientation: awake and alert Skin no rashes or lesions noted and no wounds MDM MDM MDM Narrative Medical decision making narrative: Interventions / MDM: Differential diagnosis:Right lower leg fracture, patellar ligament disruption, foot sprain, foot fracture, laceration Diagnosis considered but do not suspect:Compartment syndrome, however no deformities and soft compartments throughout. My EKG interpretation: N/A Imaging independently reviewed and interpreted by myself: Right tib-fib 2 views negative for fracture. Right foot 3 views fracture distal phalanx great toe fracture proximal phalanx second and third toes. External documents reviewed: N/A Test considered but not ordered:N/A ED course: Patient fall from 12 step ladder. GCS 15. Injury right lower leg concerning patellar ligament exposure she has pain with extensor for no full ruptures possible small tears. Also injury to the right foot. X-rays tib-fib was negative right foot with toe fractures 1 through 3 that was closed. She initially treated with fentanyl IM. Wound was copiously washed and sutured with wound care discussed. She is placed in a knee immobilizer. I discussed with on-call orthopedist Dr. Gonsalez who will follow up tomorrow. Bernardo wrap to the ankle and foot along with a postop shoe. Crutches provided. Meds to bed with hydrocodone to use as needed. All questions were answered. Re-evaluation: stable Disposition discussed with patient/family/significant other: Patient and family Case discussed with consulting clinician:Orthopedics, Dr. Gonsalez Procedure note: Verbal consent. Normal sterile conditions. Lidocaine 1% epinephrine 4 cc used for local analgesia. Copiously flushed with normal saline, wound was deep with visualization of the patellar ligament at the insertion. There is no clear rupture is noted. Wound was repaired using a total of 4, 4-0 nylon simple interrupted sutures with good approximation. Antibiotic ointment and dressing placed by myself. Patient tolerated procedure well. Radiography Diagnostic Testing: Clinical Impression(s) from Imaging Studies Tibia/Fibula X-Ray 04/18/22 17:48 IMPRESSION: Normal x-ray examination of the right tibia and fibula. Electronically Signed: Faisal Mckeon DO at 19:04 EST Reading Location ID and State: [address] [place] [address] Tel [phone], Service support , Foot X-Ray 04/18/22 18:40 IMPRESSION: 1. Comminuted mildly displaced fractures of the bases of the second and third proximal phalanges with associated soft tissue swelling. Electronically Signed: Faisal MckeonDO at 19:03 EST Reading Location ID and State: [address] [place] [address] Tel [phone], Service support , ADDENDUM: 04/18/22 2100 IMPRESSION: undefined Discharge Plan Triage Chief Complaint: Fall ED Provider: Kuldeep Emanuel Dx/Rx/DC Orders Clinical Impression: Laceration of right knee with tendon involvement, Contusion of leg, right, Right foot sprain, Toe fracture, right Instructions: ED Soft Tissue Contusion, ED Foot Sprain, ED Laceration Extremity, ED Fracture, Toe, Closed Prescriptions: New hydrocodone-acetaminophen [hydrocodone-acetaminophen] 5-325 mg tablet 1 tab PO Q6H PRN PRN (Reason: Pain) 3 Days Qty: 12 0RF Primary Care Provider: Toni De Leon Referrals: Toni De Leon MD [Primary Care Provider] - Solis Gonsalez MD [Med Staff - Active Staff] - 1 Day Activity Restrictions/Additional Instructions: Laceration, patellar ligament see no clear ruptures, pain with extension of knee in that region. Wound care as discussed knee immobilizer for comfort. X-ray of the leg was negative x-ray of the foot Notes toe fracture of the great toe second and third toe at the base. Bernardo wrap to the foot. Postop shoe. Use pain medicine as prescribed. Follow-up with Dr. Gonsalez. Call tomorrow to be seen. Disposition Disposition: Home, Self Care Discharge Date/Time: 04/18/22 20:54
[2022-04-18] MEDS: fentaNYL 100 MCG/2 ML Ampul 50 MCG IM (17:57)
--- NOTE | 2022-04-18 18:40 | RAD_ITS ---
STUDY: X-RAY - RIGHT FOOT CLINICAL: Female, 21 years old. Injury. TECHNIQUE: 3 view(s) of the foot. COMPARISON: None. FINDINGS: Normal talus, calcaneus, and tarsal bones. Normal visualized subtalar, talonavicular, calcaneocuboid, tarsal and tarsometatarsal articulations. Normal metatarsi. Normal metatarsophalangeal joint of the great toe. Normal tibial and fibular sesamoid bones. Normal interphalangeal joint of the great toe. Normal phalanges of the great toe. Normal second through fifth metatarsophalangeal joints. There are mildly displaced fractures through the bases of the second and third proximal phalanges. Otherwise normal interphalangeal joints and phalanges of the lesser toes. Soft tissue swelling about the mid and forefoot. RAD/Foot min 3 Views IMPRESSION: 1. Comminuted mildly displaced fractures of the bases of the second and third proximal phalanges with associated soft tissue swelling. Electronically Signed: Faisal Mckeon DO at 19:03 EST ,
--- NOTE | 2022-04-18 19:39 | CON.PCM.OR_ITS ---
HPI Consult Data Date of Consult: 04/18/22 HPI Narrative HPI Narrative: ANIYAH HUMPHREYS, is a 21 F who presents with a fall onto the knee, 2cm abrasion and foot pain. Called by ED physician 730pm. [facility] Medical History (Updated 04/18/22 @ 19:[address] Kuldeep Emanuel DO) Anxiety Home Medications hydrocodone-acetaminophen 5-325mg 5mg-325mg 1 tab PO Q6H PRN PRN Pain 3 days #12 TABLETS 04/18/22 [Rx Last Taken Unknown] Allergy/AdvReac Type Severity Reaction Status Date / Time amoxicillin trihydrate Allergy Unknown Verified 04/18/22 17:34 [From Augmentin] potassium clavulanate Allergy Unknown Verified 04/18/22 17:34 [From Augmentin] Family History Grandmother Cancer Ovarian Surgical History Ganglion cyst H/O adenoidectomy History of removal of skin mole Myringotomy tube status Social History adopted: No household members: significant other housing: house current occupational status: employed current occupation: [employer] pets and animals: No history of recent travel: Yes out of state: Yes sexually active: Yes Smoking Status: Current every day smoker tobacco type: cigarettes second hand exposure: No alcohol intake: never substance use type: does not use caffeine: Yes Type: carbonated beverages Number of servings: 5 and tea seatbelt use: never do you feel safe at home: Yes additional social history: ADDISON Rawls Vital Signs Vital Signs Vital Signs: 04/18/22 17:32 04/18/22 18:02 Temperature 97.2 F L Temperature Source Temporal Pulse Rate 68 Respiratory Rate 16 Respiratory Effort Normal Non-Labored Blood Pressure 93/52 L Blood Pressure Mean 65 Pulse Ox 100 Oxygen Delivery Method Room Air Weight Weight: 170 lb Body Mass Index (BMI) 25.1 Physical Exam Narrative per ED physician Dr. Emanuel small 2cm anterior knee abrasion, did washout, able to SLR and NVI with mild foot pain. Radiology Impression Tibia/Fibula X-Ray 04/18/22 17:48 IMPRESSION: Normal x-ray examination of the right tibia and fibula. Electronically Signed: Faisal MckeonDO at 19:04 EST , Foot X-Ray 04/18/22 18:40 IMPRESSION: 1. Comminuted mildly displaced fractures of the bases of the second and third proximal phalanges with associated soft tissue swelling. Electronically Signed: Faisal MckeonDO at 19:03 EST Reading Location ID and State: [facility] / [place] Tel [phone], Service support , Assessment & Plan Assessment/Plan (1) Contusion of leg, right: PLAN: 21 F soft tissue abrasion knee, with toe fractures 2 and 3 proximal phalanx on same side. No sign of patellar tendon injury per ED physician. Not asked to present to formally evaluate. No fracture on knee, ok for immobilizer and FU early this week in clinic to check wound and double check ok to do SLR. Also has displaced intra articular toe phalanx fractures. Typically treated non operative, but would recommend stiff soled shoe or orthosis boot for now, and further discussion on options in clinic.
== END 2022-04-18 20:54 | disposition home or self-care (01) ==
PROVIDERS: Emergency Provider Emergency Medicine; PCP Family Medicine; Visit Provider Emergency Medicine
DX: S81.011A Laceration without foreign body, right knee, initial encounter (principal); W11.XXXA Fall on and from ladder, initial encounter; M40.209 Unspecified kyphosis, site unspecified; F17.210 Nicotine dependence, cigarettes, uncomplicated; S96.911A Strain of unspecified muscle and tendon at ankle and foot level, right foot, initial encounter; S80.11XA Contusion of right lower leg, initial encounter; S92.424A Nondisplaced fracture of distal phalanx of right great toe, initial encounter for closed fracture
CPT/HCPCS: 12002; 73590; 73630; 96372; 99284

== ENCOUNTER → 2022-06-07 | Outpatient (CLI) | payer MEDICAID, SELFPAY ==
[2022-06-09 22:06] LABS: Chlamydia By Nucleic Acid AMP Negative (Negative)
[2022-06-10 14:19] LABS: Gonococcus By Nucleic Acid AMP Negative (Negative)
[2022-06-14 16:15] LABS: HPV Reflexed? NOT INDICATED
== END | disposition home or self-care (01) ==
LOC: LABSPEC 13:24
PROVIDERS: PCP Family Medicine; Referring Provider Registered Nurse; Visit Provider Registered Nurse
DX: Z01.419 Encounter for gynecological examination (general) (routine) without abnormal findings (principal)
CPT/HCPCS: 87491; 87591; 88175; G0145

== ENCOUNTER 2022-07-12 04:13 | Emergency (ER) | payer MEDICAID, SELFPAY ==
[2022-07-12 04:13] VITALS: BP 122/72; PULSE 96; RESP 16; TEMP 36.7; O2SAT 100; BMI 24.5
--- NOTE | 2022-07-12 04:43 | CT_ITS ---
EXAM: CT ABDOMEN AND PELVIS WITH INTRAVENOUS CONTRAST CLINICAL INDICATION: llq pain llq pain. Nausea and vomiting. Negative test. TECHNIQUE: Helically acquired images were obtained of the abdomen and pelvis with intravenous contrast. This CT exam was performed using one or more of the following dose reduction techniques: automated exposure control, adjustment of the mA and/or kV according to patient size, and/or use of iterative reconstruction technique. CONTRAST: IV 100mL [id number]-370 RADIATION DOSE: CTDIvol = 9.05 mGy, DLP = 606.83 mGy-cm COMPARISON: No relevant prior studies available. FINDINGS: LOWER THORAX: Unremarkable. Lung bases are clear. No cardiomegaly. No significant pericardial effusion. ABDOMEN: LIVER: Unremarkable. Homogeneous. No focal mass. GALLBLADDER AND BILE DUCTS: Unremarkable. No calcified gallstones. No gallbladder distention or wall edema. No intra- or extrahepatic biliary ductal dilation. PANCREAS: Unremarkable. No focal cystic or solid mass. SPLEEN: The spleen is mildly enlarged. ADRENALS: Unremarkable. No nodules. KIDNEYS AND URETERS: Unremarkable. Normal renal size and position. No hydronephrosis. STOMACH AND BOWEL: There is mildly prominent colonic feces, which may represent constipation. No stomach or bowel distention. No focal inflammatory change. PELVIS: APPENDIX: A normal appendix is seen on axial images 78-82. BLADDER: Unremarkable. REPRODUCTIVE: There is a T-shaped IUD which is asymmetrically positioned in the uterine fundus. The left arm of the IUD extends through the uterine wall. There is a 2.1 cm simple appearing left ovarian cyst. No further evaluation is necessary. ABDOMEN and PELVIS: INTRAPERITONEAL SPACE: Unremarkable. No ascites or other fluid collection. No free air. BONES/JOINTS: Unremarkable. No suspicious lytic or blastic abnormality. SOFT TISSUES: Unremarkable. No discrete abdominal or pelvic wall hernia. VASCULATURE: Unremarkable. Abdominal aorta is non-dilated. LYMPH NODES: Unremarkable. No enlarged lymph nodes. CT/Abdomen/Pelvis W IV Cont ONLY IMPRESSION: 1. IUD is asymmetrically positioned in the uterine fundus. Left arm of the IUD protrudes through the uterine wall. 2. 2.1 cm simple appearing left ovarian cyst. No further evaluation is necessary. 3. Mild splenomegaly. 4. Mildly prominent colonic feces may represent constipation. 5. No evidence for acute pathology. Electronically Signed: Simón Macdonald MD at 5:54 EDT Reading Location ID and State: [facility] / [place] , Service support ,
--- NOTE | 2022-07-12 04:44 | EX.ED.DYSGE1 ---
HPI History of Present Illness Chief Complaint: Abd Pain Informant: patient Narrative Narrative: Sudden pain in left lower quadrant waking her at 2:30 in the morning. Nausea and vomiting due to pain. No urinary symptoms. Last menstrual period 2 weeks ago. Cannot recall her last bowel movement however is having flatus. Denies abdominal surgeries. Denies fevers. Denies history ovarian cyst. Denies history of kidney stones. Prior similar symptoms: No PFSH PFSH Medical History Anxiety Kyphosis Pain in left tibia Home Medications meloxicam 7.5 mg tablet 7.5 mg PO BID PRN pain #20 tabs 04/19/22 [Rx Last Taken Unknown] fluconazole 150 mg tablet (Diflucan) 150 mg PO Q3D 2 doses #2 tabs 06/07/22 [Rx Last Taken Unknown] levonorgestrel 20.4 mcg/24 hrs (8 yrs) 52 mg intrauterine device (Liletta) 1 device intrauterine ONCE 06/07/22 [History Last Taken Unknown] magnesium oxide 200 mg PO DAILY #30 tabs 06/07/22 [Rx Last Taken Unknown] Allergy/AdvReac Type Severity Reaction Status Date / Time amoxicillin trihydrate Allergy Unknown Verified 07/12/22 04:16 [From Augmentin] potassium clavulanate Allergy Unknown Verified 07/12/22 04:16 [From Augmentin] Family History Grandmother Cancer, Onset Age: 27 Ovarian Grandmother Cancer, Onset Age: 60 ovarian Surgical History Ganglion cyst H/O adenoidectomy History of removal of skin mole Myringotomy tube status Social History adopted: No household members: significant other housing: house current occupational status: employed current occupation: [employer] pets and animals: No history of recent travel: Yes out of state: Yes sexually active: Yes Smoking Status: Current every day smoker tobacco type: cigarettes second hand exposure: No alcohol intake: never substance use type: does not use caffeine: Yes Type: carbonated beverages Number of servings: 5 and tea what type of physical activity do you participate in: none seatbelt use: never do you feel safe at home: Yes additional social history: BF- Curly RUBIO ED Constitutional Constitutional ED: Denies chills, fever(s) or sweats Eyes Eyes: Denies change in vision ENT ENT ED: Denies dysphagia or sore throat Cardiovascular Cardiovascular: Denies chest pain, leg edema, palpitations or racing heartbeat Respiratory/Chest Respiratory/Chest: Denies cough, dyspnea or dyspnea on exertion Gastrointestinal Gastrointestinal: Reports abdominal pain, nausea and vomiting; Denies diarrhea Genitourinary Genitourinary ED: Denies dysuria, hematuria or urinary frequency Musculoskeletal Musculoskeletal: Denies back pain, extremity pain or neck pain Integumentary Denies rash or wounds Neurologic Neurologic: Denies headache(s), paresthesias or weakness EXAM Physical Exam Const Vital Signs: 07/12/22 04:13 07/12/22 06:25 Temperature 98.0 F Temperature Source Temporal Pulse Rate 96 66 Respiratory Rate 16 18 Blood Pressure 122/72 H 120/70 Blood Pressure Mean 88 Pulse Ox 100 100 Oxygen Delivery Method Room Air Positive well nourished and well developed General Appearance ED: well developed and NAD HEENT Reports moist mucous membranes normocephalic and atraumatic Eyes PERRL, EOMs intact bilaterally and conjunctivae normal General Eye ED: Yes normal appearance of both eyes Neck no lymphadenopathy and supple General: Negative for tenderness Chest Wall Chest: Negative for tenderness Resp normal respiratory effort and normal air movement Effort and Inspection: symmetric chest movement; Negative for respiratory distress Cardio regular rate, regular rhythm and no murmurs Peripheral Pulses: pulses 2+ throughout GI normal to inspection, nondistended, normoactive bowel sounds GI Narrative: Left lower quadrant tenderness, no pelvic tenderness. Tender rating to the left side. No rash Palpation: Negative for guarding or rebound tenderness present Back/Spine no CVA tenderness and no thoracic nor lumbar tenderness Extremity normal to inspection General Extremety ED: Negative for edema or tenderness General Extremity: Negative for edema Neuro oriented x3 and no sensory deficits noted Sensorium / Orientation: awake and alert Skin no rashes or lesions noted and no wounds MDM MDM MDM Narrative Medical decision making narrative: Interventions / MDM: Differential diagnosis: Knee stone, ovarian cyst, colitis Diagnosis considered but do not suspect: N/A My EKG interpretation: N/A Imaging independently reviewed and interpreted by myself: CT scan abdomen pelvis IV contrast: Simple left ovarian cyst 2.1 cm. No hydro-. No inflammatory findings. External documents reviewed: N/A Test considered but not ordered:N/A ED course: Patient tender left lower quadrant, IV established fluids Zofran Toradol given. Abdominal labs normal. Normal and negative. CT the scan ordered for further evaluation. Re-evaluation: 0615: Much more comfortable. Results of CT 2.1 cm left ovarian cyst. No other acute pathology. Patient on meloxicam and Dale at home for her kyphosis. She follows [facility]. She will follow-up with them. Return precautions. All questions were answered. Disposition discussed with patient/family/significant other: Patient Case discussed with consulting clinician: N/A Lab Data Attestation: I reviewed the patient's lab results. Labs: Laboratory Results - last 24 hr 07/12/22 07/12/22 07/12/22 04:42 04:50 04:50 WBC 5.5 RBC 4.38 Hgb 13.6 Hct 40.6 MCV 92.7 MCH 31.1 MCHC 33.5 RDW Std Deviation 40.1 RDW Coeff of Pierre 11.8 Plt Count 155 MPV 10.0 Immature Gran % (Auto) 0.200 Neut % (Auto) 62.2 Lymph % (Auto) 29.9 [place] % (Auto) 6.2 Eos % (Auto) 1.3 Baso % (Auto) 0.2 Absolute Neuts (auto) 3.4 Absolute Lymphs (auto) 1.63 Nucleated RBC % 0 Sodium 140 Potassium 4.0 Chloride 108 H Carbon Dioxide 26.0 Anion Gap 6 BUN 12 Creatinine 0.56 Estim Creat Clear Calc 157.61 Est GFR (MDRD) Af Amer 172 Est GFR (MDRD) Non-Af 142 BUN/Creatinine Ratio 21.5 H Glucose 114 H Calcium 8.8 Total Bilirubin 0.40 AST 13 L ALT 18 Alkaline Phosphatase 52 Total Protein 6.2 L Albumin 3.6 Globulin 2.6 Albumin/Globulin Ratio 1.4 Lipase 16 Urine Color Yellow Urine Clarity Clear Urine pH 6.5 Ur Specific [place] 1.015 Urine Protein Negative Urine Glucose (UA) Normal Urine Ketones Negative Urine Occult Blood Negative Urine Nitrite Negative Urine Bilirubin Negative Urine Urobilinogen 1 H Ur Leukocyte Esterase Negative Urine RBC 0 SEEN Urine WBC 0 SEEN Ur Squamous Epith Cells 0 SEEN Urine Bacteria 3+ Urine Mucus 0 SEEN Urine Test Negative Radiography Diagnostic Testing: Clinical Impression(s) from Imaging Studies Abdomen/Pelvis CT 07/12/22 04:43 IMPRESSION: 1. IUD is asymmetrically positioned in the uterine fundus. Left arm of the IUD protrudes through the uterine wall. 2. 2.1 cm simple appearing left ovarian cyst. No further evaluation is necessary. 3. Mild splenomegaly. 4. Mildly prominent colonic feces may represent constipation. 5. No evidence for acute pathology. Electronically Signed: Simón Macdonald MD at 5:54 EDT , Discharge Plan Triage Chief Complaint: Abd Pain ED Provider: Kuldeep Emanuel Dx/Rx/DC Orders Clinical Impression: Cyst of left ovary, Abdominal pain, LLQ Instructions: ED Ovarian Cyst Prescriptions: No Action meloxicam 7.5 mg tablet 7.5 mg PO BID PRN (Reason: pain) Qty: 20 0RF Liletta 20.4 mcg/24 hrs (8 yrs) 52 mg intrauterine device 1 device intrauterine ONCE Rx Instructions: as a single dose magnesium oxide 200 mg magnesium tablet 200 mg PO DAILY Qty: 30 12RF fluconazole [Diflucan] 150 mg tablet 150 mg PO Q3D Qty: 2 0RF Primary Care Provider: Toni De Leon Referrals: Toni De Leon MD [Primary Care Provider] - Dodie Soares MD [Med Staff - Active Staff] - 1 Week Activity Restrictions/Additional Instructions: 2.1 cm left ovarian cyst seen on CT. Labs stable. hCG negative. Continue your home pain medicines as needed. Follow-up with [facility] outpatient evaluation. Return if worsening symptoms. Disposition Disposition: Home, Self Care Discharge Date/Time: 07/12/22 06:26
[2022-07-12] MEDS: 0.9% Normal Saline 1,000 ML 125 ML IV (04:58)
[2022-07-12] MEDS: Ondansetron 4 MG/2 ML Vial IV (04:58)
[2022-07-12 04:59] LABS: Absolute Lymphocyte Count 1.63 X10^3/uL (0.83-4.51); Absolute Neutrophil Count 3.4 X10^3/uL (2.0-7.7); Basophil# 0.01 X10^3/uL; Basophil% 0.2 % (0-1); Eosinophil# 0.07 X10^3/uL; Eosinophils% 1.3 % (0-5); Hematocrit 40.6 % (37-47); Hemoglobin 13.6 g/dL (12.0-15.0); Lymphocyte # 1.63 X10^3/ul (0.83-4.51); Lymphocyte % 29.9 % (19-41); Mean Corp Hgb Conc 33.5 g/dL (32-36); Mean Corpuscular Hgb 31.1 pg (27.0-32.0); Mean Corpuscular Volume 92.7 fL (81-99); Monocyte# 0.34 X10^3/uL; Monocyte% 6.2 % (0-10); NRBC Flagged by Analyzer 0 % (0-5); Neutrophil # 3.39 X10^3/uL (2.7-7.7); Neutrophil % 62.2 % (47-70); Platelet Count 155 K/mm3 (150-450); RBC Distribution Width CV 11.8 % (11.6-14.6); RBC Distribution Width SD 40.1 fl (35.1-43.9); Red Blood Count 4.38 M/mm3 (4.2-5.4); White Blood Count 5.5 K/mm3 (4.4-11.0)
[2022-07-12 04:59] LABS: Mucous, Urine 0 SEEN /hpf (<or=2+); Red Blood Cells-Urine 0 SEEN /hpf (0-5); Squamous Epithelial Cells - UA 0 SEEN /hpf (5-10); White Blood Cells 0 SEEN /hpf (0-5)
[2022-07-12] MEDS: Ketorolac 15 MG/ML Vial IV (04:59)
[2022-07-12 05:01] LABS: Color, Urine Yellow (Yellow); Glucose, Dipstick Normal (Normal); Ketone-Dipstick Negative (Negative); Leukocyte Esterase-Dipstick Negative /ul (Negative); Nitrite-Dipstick Negative (Negative); Occult Blood-Urine Negative /ul (Negative); Protein-Dipstick Negative (Negative); Specific Gravity, Urine 1.015 (1.002-1.030); Urine Bilirubin Dipstick Negative (Negative); Urine Clarity Clear (Clear); Urine Urobilinogen 1 mg/dl (Normal); Urine pH 6.5 (5.0 - 8.0)
[2022-07-12 05:07] LABS: Bacteria 3+ /hpf (None Seen)
[2022-07-12 05:08] LABS: Internal QC Validated? YES +Cl - CLEAR BKGD; Pregnancy, Urine Negative Negative
[2022-07-12 05:26] LABS: ALB/GLOB Ratio 1.4 RATIO (0.9-2.4); AST(SGOT) 13 U/L (15-37); Alanine Aminotransfer ALT/SGPT 18 U/L (13-56); Albumin, Serum 3.6 g/dL (3.2-5.0); Alkaline Phosphatase 52 U/L (45-117); Anion Gap 6 (5-15); BUN 12 mg/dL (7-18); BUN/Creat Ratio 21.5 RATIO (10-20); Calcium,Total 8.8 mg/dL (8.5-10.1); Chloride 108 mmol/L (98-107); Creatinine, Serum 0.56 mg/dL (0.55-1.02); EST Glomerular Filtration Rate 142 mL/min (>60); Est Glom Filt Rate - Afr Amer 172 mL/min (>60); Estimated Creatinine Clearance 157.61 ml/min; Globulin 2.6 g/dL (2.2-4.2); Glucose 114 mg/dL (74-106); Lipase 16 U/L (13-75); Protein, Total 6.2 g/dL (6.4-8.2); Sodium Level 140 mmol/L (136-145)
[2022-07-12 06:25] VITALS: BP 120/70; PULSE 66; RESP 18; O2SAT 100
== END 2022-07-12 06:26 | disposition home or self-care (01) ==
PROVIDERS: Emergency Provider Emergency Medicine; PCP Family Medicine; Visit Provider Emergency Medicine
DX: N83.292 Other ovarian cyst, left side (principal); R10.32 Left lower quadrant pain; F17.210 Nicotine dependence, cigarettes, uncomplicated
CPT/HCPCS: 74177; 80053; 81001; 81025; 83690; 85025; 96361; 96374; 96375; 99282; J7030; Q9967; A4216; J2405

== ENCOUNTER 2022-07-23 10:26 | Day surgery (SDC) | payer MEDICAID, SELFPAY ==
[2022-07-21 09:01] LABS: Hematocrit 43.9 % (37-47); Hemoglobin 14.2 g/dL (12.0-15.0); Mean Corp Hgb Conc 32.3 g/dL (32-36); Mean Corpuscular Hgb 30.6 pg (27.0-32.0); Mean Corpuscular Volume 94.6 fL (81-99); Mean Platelet Vol. 10.4 fl (6.2-12.0); Platelet Count 203 K/mm3 (150-450); RBC Distribution Width SD 41.9 fl (35.1-43.9); Red Blood Count 4.64 M/mm3 (4.2-5.4); White Blood Count 5.3 K/mm3 (4.4-11.0)
[2022-07-21 09:49] LABS: NATERA MAILED SPECIMEN
[2022-07-23] VITALS (14 sets, daily range): BP systolic 94–124; BP diastolic 43–88; PULSE 58–81; RESP 16; TEMP 36.6–37.1; O2SAT 96–100; BMI 23.8
[2022-07-23 11:01] LABS: Internal QC Validated? YES +Cl - CLEAR BKGD; Pregnancy, Urine Negative Negative
[2022-07-23] MEDS: Lactated Ringers 1,000 ML 15 ML IV ×2 (11:29→14:01)
--- NOTE | 2022-07-23 12:24 | HP.PCM_ITS ---
History and Physical Date of Admission: 07/23/22 Intake Vital Signs ? 07/22/2307:10 07/22/2307:10 Height 5 ft 8 in 5 ft 8 in Weight: 157 lb 4 oz ? BMI 23.9 ? BP 126/74 H ? Intake Visit Reasons:?surg consult Buyer Planner Required: No Is patient in pain?: No Allergies amoxicillin trihydrate [From Augmentin] Allergy (Verified 07/21/22 08:09) Unknownpotassium clavulanate [From Augmentin] Allergy (Verified 07/21/22 08:09) Unknown Medications meloxicam 7.5 mg tablet 7.5 mg PO BID PRN pain #20 tabs 04/19/22 [Rx Confirmed 07/21/22] levonorgestrel 20.4 mcg/24 hrs (8 yrs) 52 mg intrauterine device (Liletta) 1 device intrauterine ONCE 06/07/22 [History Confirmed 07/21/22] magnesium oxide 200 mg PO DAILY #30 tabs 06/07/22 [Rx Confirmed 07/21/22] hydrocodone 5 mg-acetaminophen 300 mg tablet 1 tab PO BID PRN 07/16/22 [History Confirmed 07/21/22] medroxyprogesterone 150 mg/mL intramuscular suspension (Depo-Provera) 150 mg IM [id number] #1 mL 07/16/22 [Rx Confirmed 07/21/22] Post menopausal: No Patient : No : No PFSH Medical History? Anxiety Kyphosis Pain in left tibia Surgical History? Ganglion cyst H/O adenoidectomy History of removal of skin mole Myringotomy tube status Family History? Grandmother Cancer,? Onset Age: 27 ?? ? OvarianGrandmother Cancer,? Onset Age: 60 ?? ? ovarian Social History? adopted:? No household members:? significant other housing:? house current occupational status:? employed current occupation:? [employer] pets and animals:? No history of recent travel:? Yes out of state: Yes sexually active:? Yes Smoking Status:? Current every day smoker tobacco type: cigarettes second hand exposure:? No alcohol intake:? never substance use type:? does not use caffeine:? Yes Type: carbonated beverages Number of servings: 5 and tea what type of physical activity do you participate in:? none seatbelt use:? never do you feel safe at home:? Yes additional social history:? [facility] surg consult Details: ANIYAH HUMPHREYS is a 21 year old who presents for a preoperative exam for removal of retained IUD. We discussed that the IUD could be perforated through the endometrium and hysteroscopic removal, although ideal and minimally invasive, may not result in complete removal. There is a possibility of having to go in hysteroscopically and tease the IUD out of the fundus. She agrees for a potential conversion to laparoscopy but is also requesting removal of her ovaries and fallopian tubes due to a family history (2 grandmothers) with ovarian cancer. I explained to her that her insurance will require a 30 day minimal consent form to remove her fallopain tubes and? I do not recommend removal of her ovaries without a genetic test proving a genetic link to ovarian cancer. She smells strongly of cigarette smoke and was recommended to stop smoking if she wants to truly try to prevent future malignancy. History ? ? ? 1 ? Elective abortions ? Hx Para ? ? ? 0 ? Spontaneous abortions ? Hx # Term Pregnancies ? Ectopic pregnancies ? Hx # Pregnancies ? Multiple births ? # of living children ? ? ? 1 Past Pregnancies Del. Date Name GA/Weeks Outcome Route Bth Weight Infant Gen Labor Lgth Anesthesia Del Locatn Provider FOB 08/30/19 Luke 39 live - full term NS VD ? Male ? epidural [facility] ? Delivery Date: 08/30/19? Last Updated by: Swati Bedolla ? ? ? 1st degree laceration ROS Const ROS Unobtainable: All systems reviewed & are unremarkable except as noted in H Resp Resp: Reports system reviewed and no additional complaints, except as documented; Denies cough GI GI: Reports as per HPI Psych Psych: Reports system reviewed and no additional complaints, except as documented Exam Const General: cooperative, healthy appearing, comfortable and no acute distress Resp Effort & Inspection: normal respiratory effort Skin General: no rashes or lesions noted Psych Appearance: grossly normal Speech and Movement: speech and movement normal Coding Level of Care Code Off vis,est,level 4 Diagnoses IUD complication? T83.9XXA Assessment and Plan Assessment and Plan (1) IUD complication: ?Status:?Acute ?Comment: strings not visualized. abstain from sexually activity. will obtain surgical consult JULIA for removal. interested in Depo following IUD removal. ?Plan: After discussing the patient's diagnosis and treatment plan options, patient wishes to proceed with surgical management.? I have discussed with the patient the risks, benefits, and alternatives of the procedure which include but are not limited to risks of anesthesia, bleeding, infection, possible damage to bowel, bladder, or surrounding vasculature which could lead to additional surgery to evaluate any complications.? Patient agrees to procedure and wishes to proceed.? ACOG/uptodate references given for additional information regarding procedure.? plan for hysteroscopic removal of IUD and if successful will try depo for contraception and wait for? Genetic testing results if unable to tease out hysteroscopic will convert to laparoscopy if appears to be perforated. but will need to come back for salpingectomy as title 19 was just signed today.? Orders: Orders Type & Screen - PAT ONLY Today T83.9XXA - Unspecified complication of genitourinary prosthetic device, implant and graft, initial encounter ? CBC-Complete Blood Cnt No Diff Today T83.9XXA - Unspecified complication of genitourinary prosthetic device, implant and graft, initial encounter ?
--- NOTE | 2022-07-23 12:29 | DCINST_ITS ---
Discharge Instructions Diet Discharge Diet: No restrictions Activity Discharge Activity: Return to Normal Activity, May Shower and May Take a Tub Bath (after 1 week) May resume sexual activity in: 1-2 weeks Weight Bearing Status: Weight bearing as tolerated Lifting Restrictions: none Dressing / Incision Call your doctor if you observe: Fever of 101 or Higher, Using more than 1 pad per hour, Shortness of breath and Uncontrolled pain Follow Up Care Please Follow Up With: Randee Faust, When: Call [phone] to schedule appointment. Test Results: Test results from this visit will be discussed in further detail at your follow- up appointment, if applicable. Discharge Plan Admission Primary Reason for Your Visit: hysterosopy, removal of iud Attending Provider: Randee Faust Primary Care Provider: Toni De Leon Discharge Orders/Prescriptions Prescriptions: New hydrocodone-acetaminophen 5-325 mg tablet 1 tab PO Q4H PRN (Reason: pain) 7 Days Qty: 15 0RF Continued meloxicam 7.5 mg tablet 7.5 mg PO BID PRN (Reason: pain) Qty: 20 0RF magnesium oxide 200 mg magnesium tablet 200 mg PO DAILY Qty: 30 12RF hydrocodone-acetaminophen 5-300 mg tablet 1 tab PO BID PRN (Reason: Pain) medroxyprogesterone [Depo-Provera] 150 mg/mL suspension 150 mg IM [id number] Qty: 1 0RF Discontinued Liletta 20.4 mcg/24 hrs (8 yrs) 52 mg intrauterine device 1 device intrauterine ONCE Rx Instructions: as a single dose Referrals / Follow Up: Toni De Leon MD [Primary Care Provider] - Disposition Disposition (needs filled in before D/C Order can be placed): Home, Self Care
[2022-07-23] MEDS: Lidocaine 1% (20 ml mdv) 20 ML Vial (12:40)
--- NOTE | 2022-07-23 12:58 | OP.PCM_ITS ---
Problems Associated Problem List Diagnoses (1) IUD complication: Report of Operation Date of Procedure: 07/23/22 Pre-Operative Diagnosis: retained IUD, failed removal in office Post-Operative Diagnosis: retained IUD, failed removal in office Surgery/Procedure Performed:: hysteroscopy, removal of IUD Surgeon: Randee Faust basic sciences dean: None Type of Anesthesia: MAC Estimated Blood Loss (mL): 20 cc Description of Procedure: Patient was brought to the operating room where MAC anesthesia was found to be adequate she was prepped and draped in the normal sterile fashion. Her legs were placed in stirrups and a weighted speculum was placed in the vagina. The anterior lip of the cervix was grasped with a single-tooth tenaculum the cervix was dilated and the IUD strings were noted. The IUD strings were grasped and the IUD was pulled out carefully and was found to be bent. A 5 mm hysteroscope was placed into the cervix and uterus to identify any uterine anomalies or reasons for the IUD displacement. The endometrial cavity appeared normal smooth without signs of polyps masses fibroids or other etiology. Single-tooth tenaculum was removed from the cervix the hysteroscope was removed. Pressure was applied to the single-tooth tenaculum site for hemostasis. The patient tolerated the procedure well sponge lap and needle counts were correct x2 she is now being brought to the recovery room in stable condition Complications none Admit VTE Documentation VTE Present on Admission: No VTE Mechan Device Prophylaxis: SCD's VTE Pharm Prophylaxis ordered?: No Multi Select Codes Urinary/Genital Urinary/Genital CPT Codes: 23559 Hysteroscopy, diagnostic
--- NOTE | 2022-07-23 15:18 | US_ITS ---
INDICATION: POST OP HYSTEROSCOPY INTRACTABLE PAIN. EXAMINATION: Ultrasound US Pelvis Non OB Complete With Transvaginal Imaging TECHNIQUE: Transabdominal and transvaginal pelvic ultrasound was performed. Grayscale, spectral waveform, and color flow Doppler evaluation of the adnexa. COMPARISON: None. FINDINGS: UTERUS: Anteverted. The uterus measures 7.7 x 4.7 x 2.8 cm. There is increased vasculature lateral to the uterus bilaterally suggestive of pelvic congestion syndrome. The endometrial stripe measures 3 mm in AP diameter which is within normal limits. RIGHT OVARY: 3.0 x 2.0 x 2.0 cm.. Non-enlarged, normal echogenicity. There is normal arterial inflow and venous outflow present in the right ovary. LEFT OVARY: 6.5 x 5.3 x 4.2 cm. The left ovary is enlarged and demonstrates a 3.8 x 4.6 x 2.6 cm complex cyst with solid and cystic components. This likely represents a hemorrhagic cyst. Other etiology less likely. There is normal arterial inflow and venous outflow present in the left ovary. FREE FLUID: None. US/Pelvic w/ Transvaginal IMPRESSION: No evidence of IUD. There is increased vasculature in the pelvis lateral to the uterus extending to the adnexal regions consistent with pelvic congestion syndrome. Complex cyst left ovary 3.8 x 4.6 x 2.6 cm. Electronically Signed: Edin Jaimes MD, ROSIE at 16:46 EDT ,
[2022-07-23] MEDS: MedroxyPROGESTERone 150 MG/ML Syringe IM (16:31)
[2022-07-23] MEDS: HYDROcodone Bitartrate/Apap 5/325 Tablet PO (16:39)
--- NOTE | 2022-07-23 16:41 | SUR.PHASEI ---
AT APPROXIMATELY 1520 TRANSPORTED TO ULTRASOUND ON PATIENT CART WITH TEACHER OF THE DEAF/HARD OF HEARING ON AND RN IN ATTENDANCE. AFTER PELVIC ULTRASOUND WAS PERFORMED, ASSISTED PATIENT UP TO BATHROOM. VOIDED WITHOUT DIFFICULTY. ASSISTED BACK TO PATIENT CART. DECISION MAKE TO TRANSFER PATIENT TO PHASE 2. TRANSVAGINAL ULTRASOUND DONE. PATIENT TRANSFERRED TO AC ROOM 1. MOTHER AT BEDSIDE.
== END 2022-07-23 17:14 | disposition home or self-care (01) ==
LOC: SDC 10:29 → AC 10:30
PROVIDERS: Obstetrics & Gynecology; PCP Family Medicine; Referring Provider Obstetrics & Gynecology; Visit Provider Obstetrics & Gynecology
PROC: 0UDB8ZZ Extraction of Endometrium, Via Natural or Artificial Opening Endoscopic (ICD-10-PCS; CPT 58558; principal; 2022-07-23 12:00)
DX: Z30.432 Encounter for removal of intrauterine contraceptive device (principal); F17.210 Nicotine dependence, cigarettes, uncomplicated
CPT/HCPCS: 58555; 36415; 76830; 76856; 81025; 85027; 86850; 86900; 86901; J7120; J2405

== ENCOUNTER 2022-12-20 16:00 | Outpatient (RCR) | payer MEDICAID, SELFPAY ==
--- NOTE | 2022-11-22 19:18 | HP.PTEVAL_ITS ---
Patient's Visit Information Visit Information Visit Information: ANIYAH HUMPHREYS is a 22 year old F referred to Physical Therapy by MIKI DIAZ with a diagnosis of SCHEURMANN DISEASE THORACIC KYPHOSIS. Date of Evaluation: 11/22/22 Physical Therapist: Adam Castanon, PT, Cert MDT, OCS Visit Plan Frequency: 2x /Week Duration: 4 Weeks Plan: PT INTERVENTIONS POSTURAL EX'S , THORACIC ROM/FLEXABLITY ,STRENGTHENING , AND PATIENT EDUCATION Subjective Subjective: This 22 y/o female presents to physical therapy with thoracic pain. Patient has thoracic pain many years which progressively worse . Patient seen Spine surgeon DR Rankin at [facility] but wants to get back strengthening. Patient plans o have surgery .Patient has had MRI thus past April and had x-rays. Patient takes Vicodin and meloxicam. Patient has sleep medication. As well as high anxiety. Pain located between shoulders blades thoracic. Patient pain described as ache sharp pain in legs/arms. Patient seen pain management and has had injections. Aggravating factors lifting OH ,reaching, bending and sitting. Alleviating factors rest and medication. Patient c/o paresthesia/tingling. Bowel/bladder-. Pain affects sleeping. Patient pain affects QOL and function. Patient goal to have surgery and get stronger. SOCIAL: single VOCATION: home Pain Bilateral Buttocks: Pain Intensity (Out of 10): 8 Comment: thoracic Objective Objective: POSTURE: mod thoracic kyphosis PALPTION: tender UT/levator/paraspinals NEURO: denies paresthesia/tingling but occasionally left arm AROM : shoulder flexion 140 degrees ,abduction 140 degrees with pain , THORACIC ROM: flexion mod loss ,rotation mod loss ,extension severe loss MMT: grossly 4-/5 shoulders 3+/5 Special Tests Thoracic Sitting: Flexion - Mechanical Response: No effect Thoracic Sitting: Flexion - Symptoms During Testing: Increases Thoracic Sitting: Flexion - Symptoms After Testing: Worse Thoracic Sitting: Extension - Mechanical Response: No effect Thoracic Sitting: Extension - Symptoms During Testing: Increases Thoracic Sitting: Extension - Symptoms After Testing: Worse Thoracic Sitting: Right rotation - Mechanical Response: No effect Thoracic Sitting: Right Rotation - Symptoms During Testing: Increases Thoracic Sitting: Right Rotation - Symptoms After Testing: Worse Thoracic Sitting: Left rotation - Mechanical Response: No effect Thoracic Sitting: Left Rotation - Symptoms During Testing: Increases Thoracic Sitting: Left Rotation - Symptoms After Testing: Worse Balance/Special Test Scores Oswestry Low Back Score: 36 Goals Goal 1:: Patient to be I with HEP for thoracic Goal Time Frame: 4-6 Weeks Goal 2:: Patient to demonstrate 50% improvement with decrease pain and improved function Goal Time Frame: 4-6 Weeks Goal 3:: Patient to improve strength of BUE by 4-/5 in shoulders and 4/5 tricps and biceps Goal 4:: Patient to improve thoracic ROM for function of recovery for ADLS. Goal Time Frame: 4-6 Weeks Goal 5:: Patient to improve back oswestry score by 5 points to improve function Goal Time Frame: 4-6 Weeks Rehabilitation Potential Physical Therapy Diagnosis: This patient poor posture with weakness due to increase kyphosis with pain in thoracic spine with position and motion testing weakness in BUE which impairs ADLS and housework tasks and plans to have surgery in future Rehabilitation Potential: Good Anticipated Interventions Patient/Client Instruction: Educate patient on: Condition For the Purpose of:: To decrease pain, To increase ROM, To improve muscle performance and motor function, To improve ability to perform ADL's, To increase tolerance to activity/condition/position, To improve performance and independence with ADL's, To improve ability of physical actions for home/community/work/leisure, To improve health of tissue, To decrease soft tissue restriction, To improve endurance and To improve tolerance to ADL's Therapeutic Exercise to Include: Strength training, Endurance training, Balance training, Postural training, Flexibilty training and Active ROM For the Purpose of:: To decrease pain, To increase ROM, To improve muscle performance and motor function, To increase tolerance to activity/condition/po sition, To improve ability of physical actions for home/community/work/leisure, To improve health of tissue, To decrease soft tissue restriction and To increase flexibility/ROM Text: Thank you for the opportunity to evaluate your patient. For Medicare and Medicare HMO plans, please review the plan of care and approve it. It will need to be FAXED BACK to us at [phone] for Medicare purposes. For Medicare only, by signing this I certify the plan of care. Please let me know if there are questions or concerns regarding this plan of care. Physician Signature: Date:
== END 2022-12-20 19:00 | disposition home or self-care (01) ==
LOC: PT 16:00
PROVIDERS: PCP Family Medicine
DX: M42.00 Juvenile osteochondrosis of spine, site unspecified (principal)
CPT/HCPCS: 97110; 97161

== ENCOUNTER 2023-02-03 15:38 | Emergency (ER) | payer MEDICAID, SELFPAY ==
[2023-02-03] VITALS (7 sets, daily range): BP systolic 105–128; BP diastolic 57–94; PULSE 73–140; RESP 16; TEMP 36.2; O2SAT 100; BMI 23.3
--- NOTE | 2023-02-03 17:08 | EKG12_ITS ---
Test Reason : Blood Pressure : / mmHG Vent. Rate : 084 BPM Atrial Rate : 084 BPM P-R Int : 130 ms QRS Dur : 082 ms QT Int : 348 ms P-R-T Axes : 021 064 044 degrees QTc Int : 411 ms Normal sinus rhythm Normal ECG Confirmed by NERIS JHA, CARRIE ([id number]), photographic editor MARGA PAZ ([id number]) on 02/04/2023 9:37:02 AM Referred By: SORIN Confirmed By:CARRIE CORDON MD
--- NOTE | 2023-02-03 17:10 | EX.ED.DYSGE1 ---
HPI History of Present Illness Chief Complaint: Hypotension Detail of Chief Complaint: To ER for low blood pressure, shortness of breath Informant: patient Onset/Context/Timing Context: Sudden Onset Timing: Intermittent Quality: Lightheadedness, shortness of breath, pain to breathe Location: Not applicable Current Severity: Mild Maximum Severity: Moderate Worsened by: Upright position Relieved by: Supine position Associated Symptoms Associated Symptoms: Sensation of warmth when upright Narrative Narrative: Patient is a 22-year-old female who presents because of systolic blood pressure of 80 and upright position. Patient had spine surgery with fusion of T2-L2 at [facility] January 17. She does complain of discomfort in her back when she breathes. She denies leg pain, swelling or discoloration. She informed that she required 2 units of blood after surgery. She denies fever, chills or night sweats. She denies headache, visual, ocular auditory symptoms. She denies neck pain or neck stiffness. She denies chest pain. She does complain of shortness of breath. She denies orthopnea or PND. She denies abdominal pain, nausea, vomiting or diarrhea. She denies black or maroon-colored stool. She denies dysuria, frequency, urgency or hematuria. Patient had an IUD placed in July of this year. Patient denies paresthesia, anesthesia or motor weakness upper or lower extremity. She denies problems with balance or coordination. Prior similar symptoms: Yes Recent Illness/Hospitalization: No PFSH PFS Medical History Anxiety Back pain Genetic testing of female History of pain when walking IUD complication Kyphosis Migraine headache Pain in left tibia Restless legs Smoker Status post hysteroscopy (~07/23/22) Home Medications hydrocodone 5 mg-acetaminophen 300 mg tablet 1 tab PO BID PRN Pain 07/16/22 [History Last Taken Unknown] medroxyprogesterone 150 mg/mL intramuscular suspension (Depo-Provera) 150 mg IM [id number] #1 mL 10/12/22 [Rx Last Taken Unknown] Allergy/AdvReac Type Severity Reaction Status Date / Time amoxicillin trihydrate Allergy Unknown Verified 02/03/23 15:38 [From Augmentin] potassium clavulanate Allergy Unknown Verified 02/03/23 15:38 [From Augmentin] Family History Grandmother Cancer, Onset Age: 27 Ovarian Grandmother Cancer, Onset Age: 60 ovarian Surgical History History of removal of skin mole History of surgery on wrist Hx of tonsillectomy Myringotomy tube status Social History adopted: No household members: significant other housing: house current occupational status: employed current occupation: [employer] pets and animals: No history of recent travel: Yes out of state: Yes sexually active: Yes Smoking Status: Former smoker second hand exposure: No alcohol intake: never substance use type: does not use caffeine: Yes Type: carbonated beverages Number of servings: 5 and tea what type of physical activity do you participate in: none seatbelt use: never do you feel safe at home: Yes additional social history: ADDISON RUBIO ED Constitutional Constitutional ED: Denies chills, fever(s), subjective, sweats or weight loss Eyes Eyes: Denies blurry vision, change in vision or diplopia ENT ENT ED: Denies ear pain, rhinorrhea or sore throat Cardiovascular Cardiovascular: Denies chest pain, orthopnea, palpitations, paroxysmal nocturnal dyspnea or racing heartbeat Respiratory/Chest Respiratory/Chest: Reports dyspnea; Denies cough, orthopnea, paroxysmal nocturnal dyspnea or sputum Gastrointestinal Gastrointestinal: Denies abdominal pain, diarrhea, melena, nausea or vomiting Genitourinary Genitourinary ED: Denies dysuria, hematuria or urinary frequency Musculoskeletal Musculoskeletal: Reports back pain; Denies arthralgias, myalgias or neck pain Integumentary Denies rash Neurologic Neurologic: Reports weakness; Denies headache(s) or paresthesias Psychiatric Psychiatric: Reports anxiety; Denies depression Endocrine Endocrinology: Denies cold intolerance or heat intolerance Hematologic/Lymphatic Hematologic/Lymphatic: Reports systems reviewed and no addt'l complaints, except as documented EXAM Physical Exam Narrative Exam Narrative: Signs are remarkable for heart rate of 124. Patient admits she is anxious. Const Vital Signs: 02/03/23 15:38 02/03/23 17:25 02/03/23 17:25 Temperature 97.2 F L Temperature Source Temporal Pulse Rate 124 H 73 Pulse Rate [Lying] Pulse Rate [Sitting (for 1 minute prior to obtaining)] Pulse Rate [Standing (for 1 minute prior to obtaining)] Respiratory Rate 16 16 Respiratory Effort Normal Respiratory Pattern Normal Blood Pressure 125/70 H 113/73 Blood Pressure [Lying] Blood Pressure [Sitting (for 1 minute prior to obtaining)] Blood Pressure [Standing (for 1 minute prior to obtaining)] Blood Pressure Mean 88 86 Blood Pressure Mean [Lying] Blood Pressure Mean [Sitting (for 1 minute prior to obtaining)] Blood Pressure Mean [Standing (for 1 minute prior to obtaining)] Pulse Ox 100 100 Oxygen Delivery Method Room Air Room Air 02/03/23 18:06 02/03/23 19:56 02/03/23 19:00 Temperature Temperature Source Pulse Rate 82 Pulse Rate [Lying] 100 78 Pulse Rate [Sitting (for 1 minute prior to obtaining)] 107 H Pulse Rate [Standing (for 1 minute prior to obtaining)] 140 H 120 H Respiratory Rate 16 Respiratory Effort Respiratory Pattern Blood Pressure 109/78 Blood Pressure [Lying] 105/60 112/70 Blood Pressure [Sitting (for 1 minute prior to obtaining)] 128/85 H Blood Pressure [Standing (for 1 minute prior to obtaining)] 117/73 116/84 H Blood Pressure Mean 88 Blood Pressure Mean [Lying] 75 84 Blood Pressure Mean [Sitting (for 1 minute prior to obtaining)] 99 Blood Pressure Mean [Standing (for 1 minute prior to obtaining)] 87 94 Pulse Ox 100 Oxygen Delivery Method Room Air 02/03/23 21:00 Temperature Temperature Source Pulse Rate 101 H Pulse Rate [Lying] Pulse Rate [Sitting (for 1 minute prior to obtaining)] Pulse Rate [Standing (for 1 minute prior to obtaining)] Respiratory Rate 16 Respiratory Effort Respiratory Pattern Blood Pressure 108/57 L Blood Pressure [Lying] Blood Pressure [Sitting (for 1 minute prior to obtaining)] Blood Pressure [Standing (for 1 minute prior to obtaining)] Blood Pressure Mean 74 Blood Pressure Mean [Lying] Blood Pressure Mean [Sitting (for 1 minute prior to obtaining)] Blood Pressure Mean [Standing (for 1 minute prior to obtaining)] Pulse Ox 100 Oxygen Delivery Method Room Air Positive well nourished and well developed; Negative for obese, cachectic, contractures or unkempt General Appearance ED: well developed and NAD; Negative for unkempt, cachectic, contractures, cyanotic or diaphoretic Nutritional Appearance: Negative for cachectic or obese HEENT Reports moist mucous membranes HEENT Narrative: Head is atraumatic and normocephalic. Ears are normal. Nares are patent. Posterior pharynx out erythema or exudate. Mucosa is moist. Eyes PERRL and EOMs intact bilaterally General Eye ED: Negative for pale conjunctiva or scleral icterus Neck no lymphadenopathy, supple and no JVD Chest Wall inspection of chest normal and palpation of chest normal Resp normal respiratory effort and clear to auscultation bilaterally Cardio regular rhythm, S1 normal heart sound, S2 normal heart sound and no murmurs Rate: tachycardic GI normal to inspection, nondistended, normoactive bowel sounds, non-tender, non-distended and no masses; Negative for hepatosplenomegaly Back/Spine no CVA tenderness Back/Spine Narrative: Patient has appropriate tenderness over her thoracic spine due to recent surgery. Thoracic Spine / Upper Back: thoracic spinal tenderness Extremity normal to inspection Extremity Narrative: There is no asymmetry, swelling, discoloration, leg vein distention, palpable cords or tenderness along the distribution of the deep venous system. Neuro oriented x3, CN's II-XII intact bilaterally and no sensory deficits noted Neuro Narrative: No clonus or Babinski sign noted. Sensorium / Orientation: alert Motor Exam: strength 5/5 throughout Psych Appearance: Negative for unkempt Mood & Affect: anxious Skin Skin Narrative: Well-healing wound. There is no fluctuance. There is no warmth. MDM MDM MDM Narrative Medical decision making narrative: The patient does not appear anemic. Will obtain orthostatic vital signs based on her history. CBC was obtained to assess H&H. Suspect is greater than 10 since her conjunctive is pink. BMP to assess BUN to creatinine ratio to assess for hydration status. If patient is not orthostatic and there is no significant drop in her hemoglobin from baseline we will need to perform CTA since she has a high pretest probability for PE with complaint of shortness of breath, tachycardia and surgery 2 weeks ago. Prior records were reviewed. 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 She did have an IUD placed July 2022. History & Record Review Discussion w/independent historian: Patient Additional record(s) reviewed:: Prior outpatient record, Prior ED visit and Prior labs Lab Data Attestation: I reviewed the patient's lab results. Lab results narrative: H&H is 11.7 and 37.0. There is a drop since July. Basic metabolic panel is normal with a normal BUN to creatinine ratio. Labs: Laboratory Results - last 24 hr 02/03/23 17:20 WBC 5.9 RBC 3.97 L Hgb 11.7 L Hct 37.0 MCV 93.2 MCH 29.5 MCHC 31.6 L RDW Std Deviation 41.5 RDW Coeff of Pierre 12.2 Plt Count 318 MPV 9.5 Immature Gran % (Auto) 0.300 Neut % (Auto) 72.7 H Lymph % (Auto) 18.4 L Delta % (Auto) 7.4 Eos % (Auto) 0.5 Baso % (Auto) 0.7 Absolute Neuts (auto) 4.3 Absolute Lymphs (auto) 1.09 Nucleated RBC % 0 Sodium 139 Potassium 4.1 Chloride 106 Carbon Dioxide 27.0 Anion Gap 6 BUN 9 Creatinine 0.60 Estim Creat Clear Calc 145.85 Est GFR (MDRD) Af Amer 159 Est GFR (MDRD) Non-Af 131 BUN/Creatinine Ratio 15.1 Glucose 97 Calcium 9.2 EKG Initial EKG: Attestation: I personally reviewed and interpreted this EKG as follows: Interpretation: Sinus Rhythm (Rate is 84. The EKG is normal. LA interval is 130 ms. QS duration 82 ms. QT duration 348 ms. [place] is normal.) Treatment and Re-Evaluation :: Orthostatic vital signs are positive. 1 L normal saline was ordered. Has significant tachycardia after infusion of first liter. Second liter was infused. Heart rate is improved significantly. Patient is now complaining of heartburn. GI cocktail was ordered. At the time of discharge patient voiced to frustration because she has been lying here for hours. Patient was informed that the Emergency Department is busy. I apologize for her waiting in any inconvenience. Since her heart rate has improved markedly she is no longer orthostatic will discharge to home. She did receive a GI cocktail for her heartburn. Hemoglobin 2 days ago was 11.6. Hemoglobin on January 20 was 9.3 and reason for transfusion, 2 units. Patient was instructed to take iron tablets twice a day. She also was instructed take either Metamucil or MiraLAX 3 times a day. She states she has a problem with constipation already. Recommended not using laxative but bulking agent. Discharge Plan Triage Chief Complaint: Hypotension ED Provider: Yovany Zheng Dx/Rx/DC Orders Clinical Impression: Heartburn symptom, Orthostatic hypotension, Sinus tachycardia seen on director of placement, Postoperative anemia, Constipation Instructions: Iron Supplements, ED Hypotension, Orthostatic Prescriptions: No Action hydrocodone-acetaminophen 5-300 mg tablet 1 tab PO BID PRN (Reason: Pain) medroxyprogesterone [Depo-Provera] 150 mg/mL suspension 150 mg IM [id number] Qty: 1 3RF Primary Care Provider: Toni De Leon Referrals: Toni De Leon MD [Primary Care Provider] - 3-5 Days if not improving Activity Restrictions/Additional Instructions: 1. Recommend taking an iron tablet in the morning and at night. 2. Recommend Metamucil or MiraLAX 3 times a day for the next week then reduce to twice a day while taking iron tablets 3. Recommend follow-up with your doctor in 3 to 5 days for repeat examination Disposition Disposition: Home, Self Care
[2023-02-03 17:42] LABS: Absolute Lymphocyte Count 1.09 X10^3/uL (0.83-4.51); Absolute Neutrophil Count 4.3 X10^3/uL (2.0-7.7); Basophil# 0.04 X10^3/uL; Basophil% 0.7 % (0-1); Eosinophil# 0.03 X10^3/uL; Eosinophils% 0.5 % (0-5); Hemoglobin 11.7 g/dL (12.0-15.0); Lymphocyte # 1.09 X10^3/ul (0.83-4.51); Lymphocyte % 18.4 % (19-41); Mean Corp Hgb Conc 31.6 g/dL (32-36); Mean Corpuscular Hgb 29.5 pg (27.0-32.0); Mean Corpuscular Volume 93.2 fL (81-99); Mean Platelet Vol. 9.5 fl (6.2-12.0); Monocyte# 0.44 X10^3/uL; Monocyte% 7.4 % (0-10); NRBC Flagged by Analyzer 0 % (0-5); Neutrophil # 4.31 X10^3/uL (2.7-7.7); Neutrophil % 72.7 % (47-70); Platelet Count 318 K/mm3 (150-450); RBC Distribution Width CV 12.2 % (11.6-14.6); RBC Distribution Width SD 41.5 fl (35.1-43.9); Red Blood Count 3.97 M/mm3 (4.2-5.4); White Blood Count 5.9 K/mm3 (4.4-11.0)
[2023-02-03 17:47] LABS: Anion Gap 6 (5-15); BUN 9 mg/dL (7-18); BUN/Creat Ratio 15.1 RATIO (10-20); Calcium,Total 9.2 mg/dL (8.5-10.1); Chloride 106 mmol/L (98-107); EST Glomerular Filtration Rate 131 mL/min (>60); Est Glom Filt Rate - Afr Amer 159 mL/min (>60); Estimated Creatinine Clearance 145.85 ml/min; Glucose 97 mg/dL (74-106); Potassium 4.1 mmol/L (3.5-5.1); Sodium Level 139 mmol/L (136-145)
[2023-02-03] MEDS: 0.9% Normal Saline (1000mL) 1,000 ML 1000 ML IV (18:17)
[2023-02-03] MEDS: 0.9% Normal Saline (1000mL) 1,000 ML 999 ML IV (20:43)
[2023-02-03] MEDS: Mag Hydrox/Al Hydrox/Simeth 30 ML UDC PO (22:07)
== END 2023-02-03 22:21 | disposition home or self-care (01) ==
PROVIDERS: Emergency Provider Emergency Medicine; PCP Family Medicine; Visit Provider Emergency Medicine
DX: R06.02 Shortness of breath (principal); R12 Heartburn; Z87.891 Personal history of nicotine dependence; R00.0 Tachycardia, unspecified; I95.1 Orthostatic hypotension; Z96.22 Myringotomy tube(s) status; K59.00 Constipation, unspecified; D64.89 Other specified anemias
CPT/HCPCS: 80048; 85025; 93005; 96360; 96361; 99285; J7030; A4216

== ENCOUNTER → 2023-02-18 | Outpatient (CLI) | payer MEDICAID, SELFPAY ==
--- NOTE | 2023-02-18 14:13 | MRI_ITS ---
STUDY: MRI THORACIC SPINE WITH AND WITHOUT CONTRAST REASON FOR EXAM: Female, 22 years old. POST OP COMPLICATION, LEG WEAKNESS, FEVER, CHILLS, LOW BP, VISION CHANGES TECHNIQUE: IV 14ML CLARISCAN was administered for the contrast portion of the examination. COMPARISON: None. FINDINGS: Normal kyphosis of the thoracic spine. There is no substantial scoliosis. Status post transpedicular fixation throughout the entire thoracic spine with anatomic alignment. T1-2, T2-3, T3-4, T4-5, T5-6, T6-7, T7-8, T8-9, T9-10, T10-11, T11-12: Normal endplates. Normal disc hydration, heights and morphology of the corresponding intervertebral discs. Normal central canal and intervertebral neural foramina at the corresponding levels. Normal visualized thoracic cord. Normal conus medullaris that terminates at the L1. The soft tissue structures are unremarkable. There is no enhancing abnormality. MRI/Spine Thoracic W/WO Contrast IMPRESSION: Status post transpedicular fixation throughout the entire thoracic spine with anatomic alignment and no cord compression. Electronically Signed: Froilan Davalos MD at 17:39 EST ,
--- NOTE | 2023-02-18 14:13 | MRI_ITS ---
STUDY: MRI LUMBAR SPINE WITH AND WITHOUT CONTRAST REASON FOR EXAM: Female, 22 years old. POST OP COMPLICATION, LEG WEAKNESS, FEVER, CHILLS, LOW BP, VISION CHANGES TECHNIQUE: Standardized fat and water weighted pulse sequences were obtained in the sagittal and axial planes. IV 14ML CLARISCAN was administered for the contrast portion of the examination. COMPARISON: None FINDINGS: T12-L1: Status post transpedicular fixation with anatomic alignment and no spinal stenosis or neural foraminal stenosis. Normal lumbar lordosis. There is no substantial scoliosis. Normal conus medullaris that terminates at the L1. L1-2: Status post transpedicular fixation with anatomic alignment and no spinal stenosis or neural foraminal stenosis. L2-3: Normal endplates. Normal disc height, hydration and morphology. Normal bilateral facet joints. Normal central canal and bilateral lateral recesses. Normal bilateral intervertebral neural foramina. L3-4: Normal endplates. Normal disc height, hydration and morphology. Normal bilateral facet joints. Normal central canal and bilateral lateral recesses. Normal bilateral intervertebral neural foramina. L4-5: Normal endplates. Normal disc height, hydration and morphology. Normal bilateral facet joints. Normal central canal and bilateral lateral recesses. Normal bilateral intervertebral neural foramina. L5-S1: Normal endplates. Normal disc height, hydration and morphology. Normal bilateral facet joints. Normal central canal and bilateral lateral recesses. Normal bilateral intervertebral neural foramina. Normal visualized sacral ala. Normal visualized paraspinous soft tissue structures. There is no demonstrated abnormal enhancement. MRI/Spine Lumbar W/WO Contrast IMPRESSION: Status post transpedicular fixation in the thoracolumbar spine through L2 with anatomic alignment and no spinal stenosis or neural foraminal stenosis. Electronically Signed: Froilan Davalos MD at 17:47 EST ,
== END | disposition home or self-care (01) ==
LOC: MRI 14:07
PROVIDERS: PCP Family Medicine; Referring Provider Nurse Practitioner Family; Visit Provider Nurse Practitioner Family
DX: R20.0 Anesthesia of skin (principal); R20.2 Paresthesia of skin; T88.9XXD Complication of surgical and medical care, unspecified, subsequent encounter
CPT/HCPCS: 72157; 72158; A9575

== ENCOUNTER → 2023-07-19 | Outpatient (CLI) | payer MEDICAID, SELFPAY ==
--- NOTE | 2023-07-19 17:10 | RAD_ITS ---
INDICATION: S/P FUSION OF SPINE EXAMINATION/TECHNIQUE: X-RAY - XR Spine Entire Thoracic and Lumbar 2 or 3 Views (W skull, cervical and sacral spine if performed) COMPARISON: None. FINDINGS: VERTEBRAE: Preserved vertebral body height. No fracture. No spondylolisthesis. Exaggerated lumbar lordosis. No significant facet arthropathy. DISCS: Status post transpedicular fixation throughout the entire thoracic spine. INCLUDED ABDOMEN: Included bowel gas pattern is non-obstructive. RAD/Scoliosis 2 or 3 views IMPRESSION: No acute abnormalities. Electronically Signed: Tod Dumont MD at 17:45 EDT ,
== END | disposition home or self-care (01) ==
LOC: MTRAD 16:50
PROVIDERS: PCP Family Medicine
DX: Z98.1 Arthrodesis status (principal)
CPT/HCPCS: 72082

== ENCOUNTER 2023-07-28 16:00 | Outpatient (RCR) | payer MEDICAID, SELFPAY ==
--- NOTE | 2023-03-10 14:19 | HP.PTEVAL ---
Patient's Visit Information Visit Information Visit Information: ANIYAH HUMPHREYS is a 22 year old F referred to Physical Therapy by NANCY CLAROS with a diagnosis of S/P T2 -L2 SPINE SX FOR SIGN KYPHOSIS. L SHLD PAIN/TENDINITIS.. Date of Evaluation: 03/10/23 Physical Therapist: Gloria Garcia, PT, Cert MDT Visit Plan Frequency: 2-3x /Week Duration: 4-6 Weeks Plan: CHECK AUTH. PT 2X'S A WK X 6-8 WKS FOR MODALITIES NEEDED TO DECREASE MUSCLE TONE, PAIN AND INFLAMMATION OF DOROTHY NECK AND SHLD REGIONS. CONSIDER US L SHLD. POSTURE CORRECTION AND STRENGTHENING. DOROTHY SHLD ROM, STRETCHING, STRENGTHEING INCLUDING MOBILIZATION. FOCUS ON DOROTHY SCAPULAR STRENGTH AND STABILITY. 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 HAS A 3 YEAR OLD SON. LIVES IN 2 STORY HOME Disability: NO Present symptoms: DOROTHY NECK PAIN L>R, DOROTHY SHLD PAIN L>R. L UPPER ARM PAIN, NUMBNESS AND TINGLING. INTERMITTENT L SIDED TRUNK NUMBNESS AND TINGLING. PATIENT DENIES BACK PAIN. Present since: WHEN WOKE UP FROM SURGERY JAN 17 2023 Pain Scale: Worst - 7/10 Least - 0/10 (BRIEFLY FOR 5 MINUTES LYING STILL ON R SIDE). Currently: 5/10 Commenced as a result of: SURGERY Symptoms at onset: L SHLD PAIN Worse: THE WEIGHT OF ARM PULLING DOWN WHEN SITTING AND STANDING, USING L ARM, RAISING L ARM Better: LYING ON R SIDE, M. RELAXER (THEY DON'T HELP THEY JUST KNOCK ME OUT) Disturbed sleep: YES Previous history/Previous treatment: PATIENT DENIES ANY HISTORY OF NECK OR L SHLD PROBLEMS PRIOR TO SPINE SURGERY. CARLOS'S PRIOR TO SURGERY WITH SOME BENEFIT. This episode: M. RELAXER, ICE, HEAT, REST. TRIED Gabapentin BUT NOT ON IT NOW - DIDN'T HELP. CONSULT WITH DR. REYEZ'S OFFICE TUESDAY FOR THE FIRST TIME SINCE SURGERY AND X-RAYS ORDERED. Dizziness: AT TIMES - THE LONGER I AM UP MY BLOOD PRESSURE DROPS Tinnitus: NO Nausea: YES - SINCE SURGERY Shortness of Breath: NO Difficulty Swollowing: NO Gait: NORMAL. NO FALLS Accidents: NO Unexplained weight loss: NO Imaging: X-RAYS TODAY ORDERED BY DR. REYEZ OF NECK AND DOROTHY SHLD'S - AWAITING RESULTS. PMH/Recent major surgery: UNREMARKABLE. OTHER: CURRENT PHYSICIAN RESTRICTIONS: NO BENDING, LIFTING > 10 LBS OR TWISTING. Objective Objective: Sitting Posture/Standing Posture: FORWARD HEAD. ROUNDED SHOULDERS L > R. NO TORTICOLLIS. Active Correction of posture: NE ON L NECK OR SHLD PAIN. NE ON LOW BACK IN CLINIC WITH TESTING BUT PATIENT REPORTS INCREASED LBP WITH PROLONGED SLOUCHING. Other Observations: THIS PATIENT AMBULATES INDEP'LY INTO PT TODAY WITHOUT ANY AD'S OR GROSS DEVIATIONS NOTED. Sensory deficit: DOROTHY UE LIGHT TOUCH SENSATION GROSSLY INTACT AND SYMMETRICAL BUT DECREASED LIGHT TOUCH SENSATION ALONG EACH SIDE OF MIDDLE HALF OR SO OF INCISION. ROM deficit: PATIENT IS ABLE TO ELEVATE DOROTHY UE'S TO APPROX 140 DEG EA WITH C/O PAIN DURING MVMT AND ERP L>R. FULL ACTIVE ELBOW, WRIST, FOREARM AND HAND ROM DOROTHY. 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 R SHLD FLEX 3+/5, ABD 3+/5, ER 3+/5, IR 4-/5, ELBOW FLEX 4-/5, ELBOW EXT 4-/5. L SHLD FLEX 3-/5, ABD 3-/5, ER 3-/5, IR 3+/5, ELBOW FLEX 4-/5, ELBOW EXT 4-/5. SCAPULAR STRENGTH/STABILITY - POOR. Reflexes: DOROTHY UE DTR'S 2/3. Cervical Mvmt Loss: Flex: MIN Pro: NIL Ext: MIN Ret: MOD RSB: MOD LSB: MOD R Rot: MOD L Rot: MIN PATIENT C/O INCREASE L NECK AND SHLD PAIN WITH DOROTHY SB AND ROTATION TESTING TO THE R > LEFT. Postural strength: FAIR Palpation: INCREASED MUSCLE TONE AND TENDERNESS OF L UPPER AND MIDDLE TRAPS COMPARED TO R BUT R ARE ALSO TIGHT AND TENDER. PATIENT ALSO HAS TENDERNESS OF L LATERAL AND POSTERIOR SHLD. NO COLLAR BONE TENDERNESS. PATIENT HAS TENDERNESS/WIERD FEELING WITH PALPATION THROUGHOUT THORACIC SPINE REGION. OTHER: THIS PT PROCEEDED CAREFULLY WITH ALL TESTING DUE TO SX'S BEING EASILY PROVOKED. WITH CAREFUL TESTING EVAL WAS TOLERATED WELL TODAY. Balance/Special Test Scores Quick DASH Score: [phone] Goals Goal 1:: DECREASE C/O NECK AND DOROTHY SHLD PAIN BY AT LEAST 50% TO EASE ADL'S. Goal Time Frame: 4-6 Weeks Goal 2:: INCREASE DOROTHY SHLD ROM TO 160 DEG FLEXION TO DEMONSTRATE IMPROVED POSTURE. Goal Time Frame: 6-8 Weeks Goal 3:: INCREASE DOROTHY UE STRENGTH TO 4/5 THROUGHOUT TO IMPROVE DOROTHY UE FUNCTION Goal Time Frame: 6-8 Weeks Goal 4:: RESTORE FULL PAINFREE NECK ROM ALL PLANES TO EASE ADL'S Goal Time Frame: 6-8 Weeks Goal 5:: PATIENT WILL BE INDEP WITH [facility] FOR CONTINUED IMPROVEMENT ONCE FORMAL PHYSICAL THERPAY CONCLUDES. Goal Time Frame: 6-8 Weeks Rehabilitation Potential Physical Therapy Diagnosis: THIS PATIENT PRESENTS TO PT S/P SPINE SURGERY WITH C/O NECK AND DOROTHY SHLD PAIN AND L SIDE PARASTHESISA'S. SHE EXHIBITS DECREASED NECK AND DOROTHY SHLD ROM, DECREASED POSTURAL STRENGTH, AND DECREASED DOROTHY UE STRENGTH. SHE HAS INCREASED M. TONE AND TENDERNESS OF DOROTHY NECK AND SHLD MUSCULATURE L >R. Rehabilitation Potential: Good Anticipated Interventions Patient/Client Instruction: Educate patient on: Condition, Plan of Care and Risk Factors For the Purpose of:: To improve self management Therapeutic Exercise to Include: Strength training, Body mechanics, Postural training, Flexibilty training, Neuromotor development, Relaxation training, Passive ROM, Active ROM and Scapular Strength/Stabilization Manual Therapy Techniques to Include: Trigger point massage, Mobilization, Passive ROM, Functional dry needling and Soft tissue mobilization Comment: SHLD'S. NO NECK PROM OR MOBILZATION. For the Purpose of:: To decrease pain, To improve nutrient delivery to tissue and To decrease soft tissue restriction Thermo therapy (hot pack): Yes Ultrasound (thermal/non thermal): Yes For the Purpose of:: To decrease pain and To improve nutrient delivery to tissue Text: Thank you for the opportunity to evaluate your patient. For Medicare and Medicare HMO plans, please review the plan of care and approve it. It will need to be FAXED BACK to us at [phone] for Medicare purposes. For Medicare only, by signing this I certify the plan of care. Please let me know if there are questions or concerns regarding this plan of care. Physician Signature: Date:
--- NOTE | 2023-04-29 16:26 | HP.PTREVAL ---
Re-Evaluation Intro: NANCY CLAROS, It has been my pleasure to treat ANIYAH HUMPHREYS over the last 12 visits for S/P T2 -L2 SPINE SX 01/17/23 FOR SIGN KYPHOSIS. L SHLD PAIN/TENDINITIS.. Please see the progress note below for an update on the physical therapy plan of care! Subjective Subjective: PATIENT REPORTS SHE ACCIDENTALLY MISSED HER LAST VISIT BECAUSE SHE THOUGHT IT WAS TUESDAY THE AND SHE CAME THAT DATE INSTEAD. SHE REPORTS COMPLIANCE WITH HER HEP AND HER ROM IS IMPROVING. PATIENT REPORTS HER LEGS WERE SORE AFTER THE LAST VISIT BUT THAT WENT AWAY AND SHE IS GETTING BETTER OVER-ALL. PATIENT REPORTS HER L SHLD IS STILL WEAKER THAN THE R WITH HER HEP. HAD FOLLOW WITH PAIN MGMT. PATIENT STATES DR. REYEZ AND PATIENT AGREED NOT TO DO TRIGGER POINT INJECTIONS BECAUSE HER SURGEON FEELS MOST OF HER PAIN IS COMING FROM HER SCREWS. DR. REYEZ DECREASED HER Meloxicam from 2x's a day to once a day. AND STOPPED ONCE M. RELAXER AND RE-STARTED PREVIOUS ONE. PATIENT REPORTS STARTING MEDICATION CHANGE YESTERDAY AND NO EFFECT YET. PATIENT REPORTS M. RELAXERS ARE NEEDED TOO. Objective Objective/Function: PATIENT WAS SEEN TODAY FOR RE-ASSESSMENT OF PROGRESS TOWARD THE SET PT GOALS AND THE NEED FOR FURTHER PHYSICAL THERAPY VS READINESS FOR DISCHARGE. PATIENT IS MAKING GOOD PROGRESS WITH PT AND IS APPRORPRIATE TO CONTINUE PT BASED ON PROGRESS MADE AND ROOM FOR FURHTER IMPROVEMENT. UPON EXAM TODAY: THIS PATIENT AMBULATES INDEP'LY INTO PT TODAY WITHOUT ANY AD'S OR GROSS DEVIATIONS NOTED. ROM deficit: DOROTHY UE ROM IS WFL EXCEPT TIGHT DOROTHY SHLD IR/ER L>R. TIGHT DOROTHY HS'S AND GASTROC-SOLEUS COMPLEX'S. Motor deficit: R UE: SHLD 4/5, ELBOW 4+/5. L UE: SHLD FLEX 4-/5, ABD 3+/5, IR 4-/5, ER 3-/5, ELBOW 4-/5. PATIENT IS R HAND DOMINANT WITH A R CERTIFIED SURGICAL TECHNOLOGIST STRENGTH OF 56 LBS AND L 44 LBS. SCAPULAR STRENGTH/STABILITY - FAIR - DOROTHY LE'S 5/5 EXCEPT HIPS 4-/5. Reflexes: 2/3 DOROTHY UE'S AND LE'S. Dural Signs: NEGATIVE DOROTHY UE AND LE'S. Lumbar mvmt loss: flex - MOD TO VIRA ext - MOD R SG - MOD L SG - MOD PATIENT DENIES INCREASED PAIN WITH LUMBAR ROM TESTING - JUST TIGHT. Core strength: POOR Sitting Posture/Standing Posture: FORWARD HEAD. ROUNDED SHOULDERS L > R. NO TORTICOLLIS. Sensory deficit: DOROTHY UE LIGHT TOUCH SENSATION GROSSLY INTACT AND SYMMETRICAL BUT DECREASED LIGHT TOUCH SENSATION ALONG EACH SIDE OF MIDDLE HALF OR SO OF INCISION. Cervical Mvmt Loss: Flex: NIL Pro: NIL Ext: MIN Ret: MIN RSB: MIN LSB: MIN R Rot: MIN L Rot: MIN PATIENT DENIES INCREASED PAIN WITH CERVICAL ROM TESTING ALL PLANES. Postural strength: FAIR Palpation: INCREASED MUSCLE TONE AND TENDERNESS OF L UPPER AND MIDDLE TRAPS COMPARED TO R BUT R ARE ALSO TIGHT AND TENDER. PATIENT ALSO HAS TENDERNESS OF L LATERAL AND POSTERIOR SHLD. NO COLLAR BONE TENDERNESS. PATIENT HAS TENDERNESS/WIERD FEELING WITH PALPATION THROUGHOUT THORACIC SPINE REGION. Plan Plan Plan: PT 2X'S A WK X 3-4 WKS FOR GENERAL DOROTHY UE AND LE ROM, STRETCHING AND STRENGTHENING WITH FOCUS ON SCAPULAR AND CORE STRENGTHING TO HELP PATIENT RETURN TO PLOF AFTER SPINAL SURGERY. *L UE WEAKNESS AND TIGHTNESS COMPARED TO R* Balance/Gait/Functional tests Balance/Special Test Scores Quick DASH Score: [phone] Goals Goals Goal 1:: DECREASE C/O NECK AND DOROTHY SHLD PAIN BY AT LEAST 50% TO EASE ADL'S. Goal Time Frame: 4-6 Weeks Goal Progress: Progressing Goal 2:: INCREASE DOROTHY SHLD ROM TO 160 DEG FLEXION TO DEMONSTRATE IMPROVED POSTURE. Goal Time Frame: 6-8 Weeks Goal Progress: Goal Met Goal 3:: INCREASE DOROTHY UE STRENGTH TO 4/5 THROUGHOUT TO IMPROVE DOROTHY UE FUNCTION Goal Time Frame: 6-8 Weeks Goal Progress: Progressing Goal 4:: RESTORE FULL PAINFREE NECK ROM ALL PLANES TO EASE ADL'S Goal Time Frame: 6-8 Weeks Goal Progress: Progressing Goal 5:: PATIENT WILL BE INDEP WITH [facility] FOR CONTINUED IMPROVEMENT ONCE FORMAL PHYSICAL THERPAY CONCLUDES. Goal Time Frame: 6-8 Weeks Goal Progress: Progressing Goal 6:: NEW GOAL: INCREASE CORE AND POSTURAL STRENGTH TO GOOD TO HELP PATIENT RETURN TO PLOF. Goal Time Frame: 4-6 Weeks Anticipated Interventions Anticipated Interventions Patient/Client Instruction: Educate patient on: Condition, Plan of Care and Risk Factors For the Purpose of:: To improve self management Therapeutic Exercise to Include: Strength training, Body mechanics, Postural training, Flexibilty training, Neuromotor development, Relaxation training, Passive ROM, Active ROM and Scapular Strength/Stabilization Manual Therapy Techniques to Include: Trigger point massage, Mobilization, Passive ROM, Functional dry needling and Soft tissue mobilization Comment: SHLD'S. NO NECK PROM OR MOBILZATION. For the Purpose of:: To decrease pain, To improve nutrient delivery to tissue and To decrease soft tissue restriction Thermo therapy (hot pack): Yes Ultrasound (thermal/non thermal): Yes For the Purpose of:: To decrease pain and To improve nutrient delivery to tissue Re-Evaluation Ending Re-evaluation ending: Please do not hesitate to contact me at [phone] by phone or if you have questions or concerns regarding this new plan of care! Sincerely, Gloria Garcia, PT, Cert MDT
--- NOTE | 2023-05-27 14:11 | HP.PTREVAL ---
Re-Evaluation Intro: NANCY CLAROS, It has been my pleasure to treat ANIYAH HUMPHREYS over the last 20 visits for S/P T2 -L2 SPINE SX 01/17/23 FOR SIGN KYPHOSIS. L SHLD PAIN/TENDINITIS.. Please see the progress note below for an update on the physical therapy plan of care! Subjective Subjective: I CAN DO MORE STUFF. MY STAMINA IS UP. BUT MY BACK STILL HURTS AND I WANT TO BE ABLE TO DO MORE. PATIENT REPORTS LIMITED MVMT IN HER SHOULDERS THAT ISN'T CHANGING AND CAUSES HER PAIN WHEN TRYING TO DO THINGS LIKE DRIVING, DOING DISHES AND PICKING UP HER KID. PATIENT STATES SHE FEELS SHOOTING PAINS THAT ARE EXCRUTIATING AT TIMES THAT FEEL LIKE MY SKIN IS RIPING WHERE MY SHOULDER BLADES COME TOGETHER. I CAN FEEL PINS AND NEEDLES THE WHOLE WAY DOWN MY SPIINE OFF AND ON, ON A DAILY BASIS. PATIENT REPORTS SHE STILL HAS QUESTIONS ABOUT HER BLOOD PRESSURE, SWEATING AND NIGHT SWEATS. THIS PT ENCOURAGED HER TO MAKE AN CYNTHIA'T FOR THIS SOON POSSIBLE. PATIENT REPORTS SHE CANCELLED HER LAST PAIN MGMT CYNTHIA'T BECAUSE SHE WAS SICK AND ISN'T SURE WHEN SHE RE-SCHEDULED IT FOR. I FEEL LIKE EVERYTHING IS OK WITH ME EXCEPT MY SHOULDERS/SHOULDER BLADES AND THEY AREN'T GETTING BETTER. SHE REPORTS TRYING MULTIPLE DIFFERENT EX'S AND NOTHING SEEMS TO HELP. Objective Objective/Function: PATIENT WAS SEEN TODAY FOR RE-ASSESSMENT OF PROGRESS TOWARD THE SET PT GOALS AND THE NEED FOR FURTHER PHYSICAL THERAPY VS READINESS FOR DISCHARGE. SHE IS EXPRESSING FRUSTRATION BECAUSE OF THE PAIN AND LIMITATIONS IN HER SHOULDERS. UPON EXAM TODAY: THIS PATIENT AMBULATES INDEP'LY INTO PT TODAY WITHOUT ANY AD'S OR GROSS DEVIATIONS NOTED. ROM deficit: PATIENT CONTINUES TO HAVE POSTURAL TIGHTNESS. PEC TIGHTNESS AND HS TIGHTNESS DOROTHY. FULL SHLD ROM BUT ONLY ABLE TO MINIMALLY RETRACT SCAPULAE. SHLD'S REST IN PROTRACTION. Motor deficit: (MEASURED IN #'S) SHLD FLEX - R 25.9, L 23.1 SHLD EXT - R 29.7, L 26.3 SHLD ABD - R 19.9, L 18.6 IR - R 17.8, L 16.3 ER - R 16.7, L 13.0 ELBOW FLEX - R 28.1, L 26.3 ELBOW EXT - R 22.8, L 23.7 PATIENT IS R HAND DOMINANT WITH A R SAFETY AND SECURITY OFFICER STRENGTH OF 76 LBS AND L 64 LBS. DOROTHY LE'S 5/5. Dural Signs: NEGATIVE DOROTHY UE AND LE'S. Lumbar mvmt loss: flex - MOD ext - MIN TO MOD R SG - MIN L SG - MOD PATIENT DENIES INCREASED PAIN WITH LUMBAR ROM TESTING - JUST TIGHT IN HS'S. Core strength: POOR Sitting Posture/Standing Posture: FORWARD HEAD. ROUNDED SHOULDERS. NO TORTICOLLIS. FORWARD HEAD IS IMPROVING AND POSTURE STRENGTH AND CONTROL IS IMPROVING. Sensory deficit: DOROTHY UE LIGHT TOUCH SENSATION GROSSLY INTACT AND SYMMETRICAL BUT DECREASED LIGHT TOUCH SENSATION ALONG THORACIC SPINE. HYPERSENSATIVITY DOROTHY SCAP REGIONS TO LIGHT TOUCH. Cervical Mvmt Loss: WFL ALL PLANES NOW AND PATIENT DENIES CHOKING FEELING WITH CERVICAL RETRACTION TESTING TODAY. PATIENT DENIES INCREASED PAIN WITH CERVICAL ROM TESTING. Postural strength: GOOD Palpation: PATIENT HAS TENDERNESS/WIERD FEELING WITH PALPATION THROUGHOUT THORACIC SPINE REGION. Plan Plan Plan: CONTINUE PT 2X'S A WK X 4-6 WKS FOR THER EX AND MANUAL THERAPY TO FACILITATE IMPROVEMENT IN SCAPULAR STRENGTH AND STABILIZATION FUNCTION, DESENSITIZATION OF THORACIC REGION, CORE STRENGTH AND STABILITY, MH/CP NEEDED TO HELP PATIENT RETURN TO PLOF AFTER SPINAL SURGERY. HEP INSTRUCTION. PATIENT IS AGREEABLE TO THIS POC. Balance/Gait/Functional tests Balance/Special Test Scores Quick DASH Score: 27.2725 Goals Goals Goal 1:: DECREASE C/O NECK AND DOROTHY SHLD PAIN BY AT LEAST 50% TO EASE ADL'S. Goal Time Frame: 4-6 Weeks Goal Progress: Goal Met Goal 2:: INCREASE DOROTHY SHLD ROM TO 160 DEG FLEXION TO DEMONSTRATE IMPROVED POSTURE. Goal Time Frame: 6-8 Weeks Goal Progress: Goal Met Goal 3:: INCREASE DOROTHY UE STRENGTH TO 4/5 THROUGHOUT TO IMPROVE DOROTHY UE FUNCTION Goal Time Frame: 6-8 Weeks Goal Progress: Goal met in avail range Goal 4:: RESTORE FULL PAINFREE NECK ROM ALL PLANES TO EASE ADL'S Goal Time Frame: 6-8 Weeks Goal Progress: Goal Met Goal 5:: PATIENT WILL BE INDEP WITH HEP FOR CONTINUED IMPROVEMENT ONCE FORMAL PHYSICAL THERPAY CONCLUDES. Goal Time Frame: 6-8 Weeks Goal Progress: Indep HEP Goal 6:: NEW GOAL: INCREASE CORE AND SCAPULAR STRENGTH/STABILITY TO GOOD TO HELP PATIENT RETURN TO PLOF. Goal Time Frame: 4-6 Weeks Anticipated Interventions Anticipated Interventions Patient/Client Instruction: Educate patient on: Condition, Plan of Care and Risk Factors For the Purpose of:: To improve self management Therapeutic Exercise to Include: Strength training, Body mechanics, Postural training, Flexibilty training, Neuromotor development, Relaxation training, Passive ROM, Active ROM and Scapular Strength/Stabilization Manual Therapy Techniques to Include: Trigger point massage, Mobilization, Passive ROM, Functional dry needling and Soft tissue mobilization Comment: SHLD'S. NO NECK PROM OR MOBILZATION. For the Purpose of:: To decrease pain, To improve nutrient delivery to tissue and To decrease soft tissue restriction Thermo therapy (hot pack): Yes Ultrasound (thermal/non thermal): Yes For the Purpose of:: To decrease pain and To improve nutrient delivery to tissue Re-Evaluation Ending Re-evaluation ending: Please do not hesitate to contact me at [phone] by phone or if you have questions or concerns regarding this new plan of care! Sincerely, Gloria Garcia, PT, Cert MDT
--- NOTE | 2023-07-21 14:39 | HP.PTREVAL ---
Re-Evaluation Intro: NANCY CLAROS, It has been my pleasure to treat ANIYAH HUMPHREYS over the last 30 visits for S/P T2 -L2 SPINE SX 01/17/23 FOR SIGN KYPHOSIS. L SHLD PAIN/TENDINITIS.. Please see the progress note below for an update on the physical therapy plan of care! Subjective Subjective: PATIENT REPORTS THAT EVER THOUGH HER SHLD'S HURT SHE IS STRONGER THAN LAST RE-CHECK. SHE REPORTS SHE IS STRONGER EVERYWHERE AND DOESN'T GET WORE OUT COMPARED TO LAST RE-CHECK. SHE STATES PHYSICAL THERAPY IS HELPING HER GET HER STRENGTH BACK AND SHE WANTS TO CONTINUE EVEN THOUGH IT ISN'T HELPING HER PAIN. SHE REPORTS 2 RECENT FALLS - ONE FROM CROUCHED POSITION - FELL BACKWARDS. THE OTHER ONE WAS FROM STANDING WHEN SHE FELT A TWEAK IN HER BACK AND FELL BW HITTING HER BACK ON HER HUSBANDS KNEE. PATIENT REPORTS HER SURGEON IS AWARE OF THE FALLS, ORDERED AND LOOKED AT [facility] AND SAID EVERYTHING LOOKED OK. PATIENT REPORTS SHE IS NO LONGER TAKING PAIN MEDICINE AND DOES NOT PLAN TO GO BACK TO PAIN MGMT. SHE STATES SHE HAS MUSCLE RELAXERS THAT SHE TAKES EVERY ONCE IN AWHILE NEEDED. Objective Objective/Function: PATIENT WAS SEEN TODAY FOR RE-ASSESSMENT OF PROGRESS TOWARD THE SET PT GOALS AND THE NEED FOR FURTHER PHYSICAL THERAPY VS READINESS FOR DISCHARGE. CORE AND UE STRENGTH IS IMPROVING AND PATIENT IS A GOOD CANDIDATE TO CONTINUE SKILLED PT FOR GUIDANCE WITH SAFE EXERCISE PROGRESSION AND CUEING FOR PROPER TECHNIQUE WITH THER EX. PATIENT AGREEABLE. UPON EXAM TODAY: THIS PATIENT AMBULATES INDEP'LY INTO PT TODAY WITHOUT ANY AD'S OR GROSS DEVIATIONS NOTED. HER GRANDMOTHER IS WITH HER. ROM deficit: PATIENT CONTINUES TO HAVE POSTURAL TIGHTNESS. PEC TIGHTNESS AND HS TIGHTNESS DOROTHY. FULL SHLD ROM BUT ONLY ABLE TO MINIMALLY RETRACT SCAPULAE. SHLD'S REST IN PROTRACTION. Motor deficit: (MEASURED IN #'S OF [place]) SHLD FLEX - R 30.7, L 30.1 SHLD EXT - R 31.8, L 32.1 SHLD ABD - R 30, L 29.3 IR - R 34.7, L 26.5 ER - R 21.7, L 15 ELBOW FLEX - R 42, L 37.3 ELBOW EXT - R 32.3, L 27.7 PATIENT IS R HAND DOMINANT WITH A R REFINERY OPERATOR LIGHT ENDS RECOVERY STRENGTH OF 87 LBS AND L 65 LBS. DOROTHY LE'S 5/5. Core strength: FAIR Sitting Posture/Standing Posture: FORWARD HEAD. ROUNDED SHOULDERS. NO TORTICOLLIS. FORWARD HEAD IS IMPROVING AND POSTURE STRENGTH AND CONTROL IS IMPROVING. Sensory deficit: DOROTHY UE LIGHT TOUCH SENSATION GROSSLY INTACT AND SYMMETRICAL BUT DECREASED LIGHT TOUCH SENSATION ALONG THORACIC SPINE. HYPERSENSATIVITY DOROTHY SCAP REGIONS TO LIGHT TOUCH. Plan Plan Plan: CONTINUE PT 2X'S A WK X 4-6 WKS FOR THER EX AND MANUAL THERAPY TO FACILITATE IMPROVEMENT IN SCAPULAR STRENGTH AND STABILIZATION FUNCTION, DESENSITIZATION OF THORACIC REGION, CORE STRENGTH AND STABILITY, MH/CP NEEDED TO HELP PATIENT RETURN TO PLOF AFTER SPINAL SURGERY. HEP INSTRUCTION. PATIENT IS AGREEABLE TO THIS POC. Balance/Gait/Functional tests Balance/Special Test Scores Quick DASH Score: 38.6350 Goals Goals Goal 1:: DECREASE C/O NECK AND DOROTHY SHLD PAIN BY AT LEAST 50% TO EASE ADL'S. Goal Time Frame: 4-6 Weeks Goal Progress: Goal Met Goal 2:: INCREASE DOROTHY SHLD ROM TO 160 DEG FLEXION TO DEMONSTRATE IMPROVED POSTURE. Goal Time Frame: 6-8 Weeks Goal Progress: Goal Met Goal 3:: INCREASE DOROTHY UE STRENGTH TO 4/5 THROUGHOUT TO IMPROVE DOROTHY UE FUNCTION Goal Time Frame: 6-8 Weeks Goal Progress: Goal met in avail range Goal 4:: RESTORE FULL PAINFREE NECK ROM ALL PLANES TO EASE ADL'S Goal Time Frame: 6-8 Weeks Goal Progress: Goal Met Goal 5:: PATIENT WILL BE INDEP WITH HEP FOR CONTINUED IMPROVEMENT ONCE FORMAL PHYSICAL THERPAY CONCLUDES. Goal Time Frame: 6-8 Weeks Goal Progress: Indep HEP Goal 6:: NEW GOAL: INCREASE CORE AND SCAPULAR STRENGTH/STABILITY TO GOOD TO HELP PATIENT RETURN TO PLOF. Goal Time Frame: 4-6 Weeks Goal Progress: Progressing Anticipated Interventions Anticipated Interventions Patient/Client Instruction: Educate patient on: Condition, Plan of Care and Risk Factors For the Purpose of:: To improve self management Therapeutic Exercise to Include: Strength training, Body mechanics, Postural training, Flexibilty training, Neuromotor development, Relaxation training, Passive ROM, Active ROM and Scapular Strength/Stabilization Manual Therapy Techniques to Include: Trigger point massage, Mobilization, Passive ROM, Functional dry needling and Soft tissue mobilization Comment: SHLD'S. NO NECK PROM OR MOBILZATION. For the Purpose of:: To decrease pain, To improve nutrient delivery to tissue and To decrease soft tissue restriction Thermo therapy (hot pack): Yes Ultrasound (thermal/non thermal): Yes For the Purpose of:: To decrease pain and To improve nutrient delivery to tissue Re-Evaluation Ending Re-evaluation ending: Please do not hesitate to contact me at [phone] by phone or if you have questions or concerns regarding this new plan of care! Sincerely, Gloria Garcia, PT, Cert MDT
--- NOTE | 2023-09-15 09:59 | HP.PTDCNRP_ITS ---
Patient Information Patient Information: ANIYAH HUMPHREYS was seen in my office for initial evaluation on 03/10/23. The following Plan of Care was established for this patient: POC Established Initial Frequency: 2-3x /Week Initial Duration: 4-6 Weeks Anticipated Interventions Patient/Client Instruction: Educate patient on: Condition, Plan of Care and Risk Factors For the Purpose of:: To improve self management Therapeutic Exercise to Include: Strength training, Body mechanics, Postural training, Flexibilty training, Neuromotor development, Relaxation training, Passive ROM, Active ROM and Scapular Strength/Stabilization Manual Therapy Techniques to Include: Trigger point massage, Mobilization, Passive ROM, Functional dry needling and Soft tissue mobilization Comment: SHLD'S. NO NECK PROM OR MOBILZATION. For the Purpose of:: To decrease pain, To improve nutrient delivery to tissue and To decrease soft tissue restriction Thermo therapy (hot pack): Yes Ultrasound (thermal/non thermal): Yes For the Purpose of:: To decrease pain and To improve nutrient delivery to tissue Last Seen Last Seen: This patient was last seen in our office 07/28/23. Pertinent comments regarding their Physical therapy will appear below: It has been my pleasure to see this patient for a total of 32 visits. This patient has not returned to Physical Therapy for more visits and is appropriate to return to MD for further follow-up as needed. At this point I will be discontinuing this patient from physical therapy. I wo uld be happy to see this patient again in the future if found appropriate by the physician. Thank you! Gloria Garcia, PT, Cert MDT Balance/Gait/Functional tests Balance/Special Test Scores Quick DASH Score: [phone]
== END 2023-07-28 19:00 | disposition home or self-care (01) ==
LOC: PT 16:00
PROVIDERS: PCP Family Medicine
DX: Z98.890 Other specified postprocedural states (principal)
CPT/HCPCS: 97110; 97140; 97162; 97164; 97530

== ENCOUNTER 2024-09-15 01:46 | Emergency (ER) | payer MEDICAID, SELFPAY ==
[2024-09-15 01:46] VITALS: BP 125/68; PULSE 75; RESP 18; TEMP 37; O2SAT 98; BMI 25.9
--- NOTE | 2024-09-15 02:07 | CT_ITS ---
PROCEDURE: SPINE LUMBAR WITHOUT CONTRAST 09/15/2024 REASON FOR EXAM: HX OF FUSION, BACK PAIN TECHNIQUE: SPINE LUMBAR WITHOUT CONTRAST Coronal and Sagittal reconstruction series were provided. One or more dose reduction techniques were used (e.g., Automated exposure control, adjustment of the mA and/or kV according to patient size, use of iterative reconstruction technique COMPARISON: 02-18-2025 RADIATION DOSE SUMMARY: CTDlvol: mGy DLP: mGycm FINDINGS: Stable thoracolumbar spinal fixation by rods and screws inducing beam hardening artifacts. Straightened lumbar lordosis denoting myospasm. Normal vertebral bodies height and alignment. Intact vertebral bodies and neural arches. No definite fractures could be detected. Segmental disc analysis level by level: L1-L2: There is no significant disc herniation or neural foraminal narrowing visualized. Central canal is unremarkable. No sign of lateral recess stenosis. Nerve roots are normal. L2-L3: There is no significant disc herniation or neural foraminal narrowing visualized. Central canal is unremarkable. No sign of lateral recess stenosis. Nerve roots are normal. L3-L4: There is no significant disc herniation or neural foraminal narrowing visualized. Central canal is unremarkable. No sign of lateral recess stenosis. Nerve roots are normal. L4-L5: There is no significant disc herniation or neural foraminal narrowing visualized. Central canal is unremarkable. No sign of lateral recess stenosis. Nerve roots are normal. L5-S1: There is no significant disc herniation or neural foraminal narrowing visualized. Central canal is unremarkable. Nerve roots are normal. Intact sacroiliac joints showing intra-articular gas luecncies. No retro paraspinal soft tissue masses. No developmental canal stenosis. CT/Spine Lumbar without Contrast IMPRESSION: Stable thoracolumbar spinal fixation by rods and screws inducing beam hardening artifacts. Straightened lumbar lordosis denoting myospasm. No displaced vertebral fractures, structural collapse or dislocation. No significant disc herniation or neural foraminal narrowing visualized. Reading [facility] [address]
--- NOTE | 2024-09-15 02:07 | CT_ITS ---
PROCEDURE: SPINE THORACIC WITHOUT CONTRAS 09/15/2024 REASON FOR EXAM: HX OF FUSION, BACK PAIN TECHNIQUE: SPINE THORACIC WITHOUT CONTRAS Coronal and Sagittal reconstruction series were provided. One or more dose reduction techniques were used (e.g., Automated exposure control, adjustment of the mA and/or kV according to patient size, use of iterative reconstruction technique). RADIATION DOSE SUMMARY: CTDlvol: mGy DLP: mGycm COMPARISON: 02-18-2023 MRI FINDINGS: Stable thoracolumbar spinal fixation by rods and screws inducing beam hardening artifacts. Maintained curvature of thoracic spine is seen. Normal bone density is seen. No obvious acute fracture line or subluxation is seen. Minimal chronic reduced height of T7 and T8 vertebral bodies. Normal rest of the vertebral bodies height and alignment. No evidence of structural collapse or dislocation. Intact vertebral neural arches. No definite fractures could be detected. Multilevel tiny marginal lipping of the examined vertebral end plates. Intact intervertebral disc spaces. There is no significant disc herniation or neural foraminal narrowing visualized. Central canal is unremarkable. Nerve roots are normal. Multilevel facet arthropathy. No retro or paraspinal soft tissue masses. Bilateral pulmonary atelectatic changes. CT/Spine Thoracic without Contras IMPRESSION: No acute vertebral fractures, structural collapse or dislocation Stable study findings as detailed. Reading [facility]
--- NOTE | 2024-09-15 02:08 | EX.ED.DYSGE1 ---
HPI History of Present Illness Chief Complaint: Back Narrative Narrative: Patient is a 24-year-old female with past medical history of anxiety, kyphosis status post fusion from her thoracic to lumbar spine down in [place] who who presents to the emergency department the chief complaint of low back pain. 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 She states that she did not take anything at home prior to coming to the emergency department. Patient states that she is currently on the Depo shot and denies any possibility of . Patient is concerned that there is something wrong which would prompted her to drive here to the emergency department to be further evaluated for imaging. Patient did note that she has been having lower back pain for some time now. She states that she has been urinating normally for self and having normal bowel movements. [facility] Medical History Status post hysteroscopy (~07/23/22) Genetic testing of female Restless legs Migraine headache Smoker History of pain when walking Back pain IUD complication Pain in left tibia Kyphosis Anxiety Home Medications ?Medication ?Instructions ?Recorded ?Last Taken ?Type medroxyprogesterone 150 mg/mL 150 mg IM [id number] #1 mL 09/28/23 Unknown Rx intramuscular suspension (Depo-Provera) buspirone 5 mg tablet 5 mg PO QHS 09/15/24 Unknown History sertraline 50 mg tablet 75 mg PO DAILY 09/15/24 Unknown History tizanidine 4 mg tablet 4 mg PO QHS PRN muscle spasticity 09/15/24 Unknown History Allergy/AdvReac Type Severity Reaction Status Date / Time amoxicillin trihydrate (From Allergy Unknown Verified 09/15/24 01:46 Augmentin) potassium clavulanate (From Allergy Unknown Verified 09/15/24 01:46 Augmentin) Family History Grandmother Cancer, Onset Age: 27 Ovarian Grandmother Cancer, Onset Age: 60 ovarian Surgical History S/P spinal fusion Hx of tonsillectomy History of surgery on wrist Myringotomy tube status History of removal of skin mole Social History adopted: No household members: significant other housing: house current occupational status: employed current occupation: [employer] pets and animals: No history of recent travel: Yes out of state: Yes sexually active: Yes Smoking Status: Current every day smoker tobacco type: cigarettes second hand exposure: No alcohol intake: never substance use type: does not use caffeine: Yes Type: carbonated beverages Number of servings: 5 and tea what type of physical activity do you participate in: none seatbelt use: never do you feel safe at home: Yes additional social history: FAMILIA- Curly RUBIO ROS ED ROS Narrative Constitutional: Denies any fevers, chills, headaches : Denies urinary symptoms as noted above Neurological: Denies any numbness Musculoskeletal: Complains of back pain as noted above Skin: Denies any rashes or lesions EXAM Physical Exam Narrative Exam Narrative: General: Patient was lying in bed rest comfortably did not appear to be acute distress Head: Atraumatic, normocephalic Eyes: PERRL bilaterally, EOMI blood, no conjunctival injection noted Neck: Soft, supple, trachea midline Cardiovascular: Regular rate and rhythm Abdomen: No tenderness palpation Extremities: Patient's lower extremities did appear to be overall weak and she states that this is limited secondary to her low back pain, no pedal edema on exam Neurological: Patient follow commands that she was at [facility] year is 2024. Sensation grossly intact no saddle anesthesia noted Skin: Warm, dry, tact no rashes or lesions noted Const Vital Signs: 09/15/24 01:46 09/15/24 03:48 Temperature 98.6 F 98 F Temperature Source Oral Pulse Rate 75 68 Respiratory Rate 18 15 Blood Pressure 125/68 H 120/67 Blood Pressure Mean 87 84 Pulse Ox 98 99 Oxygen Delivery Method Room Air MDM MDM MDM Narrative Medical decision making narrative: Patient is a 24-year-old female who presented to the emergency department chief complaint of back pain. On the differential diagnosis includes but limited to musculoskeletal strain, hardware loosening/failure, fracture. Once workup is obtained reviewed she will be reevaluated. Patient states that she is planning on driving home and does not want anything that will prevent her from driving home. She states that she came here to be evaluated to ensure that her hardware is still in place and nothing is failing. Arm rash patient's CT thoracic spine was reviewed and showed no acute vertebral fractures, structural collapse or dislocation stable findings noted. Patient's CT lumbar spine reviewed showed stable thoracolumbar spinal fixation by rods and screws including beam hardening artifact. Straightened lumbar lordosis denoting mild spasm no displaced fractures structural collapse or dislocation. No significant disc herniation or foraminal narrowing visualized. Discussed results with the patient and she would like to go home at this point time. Patient states that she still wants to drive home and is refusing any other narcotic or muscle relaxer here. States that she already has prescriptions at home for tizanidine, cyclobenzaprine and [place] states that she will take these when she gets home. She was advised to return with worsening symptoms or concerns otherwise she is to follow-up with her surgeon from [place] in the outpatient setting. All question concerns answered she was discharged home in stable condition. Radiography Diagnostic Testing: Clinical Impression(s) from Imaging Studies Lumbar Spine CT 09/15/24 02:07 IMPRESSION: Stable thoracolumbar spinal fixation by rods and screws inducing beam hardening artifacts. Straightened lumbar lordosis denoting myospasm. No displaced vertebral fractures, structural collapse or dislocation. No significant disc herniation or neural foraminal narrowing visualized. [id number] 09/15/24 02:07 IMPRESSION: No acute vertebral fractures, structural collapse or dislocation Stable study findings as detailed. Reading Location: [place] [address] Discharge Plan Triage Chief Complaint: Back ED Provider: Huber Cr Dx/Rx/DC Orders Clinical Impression: Back pain, Musculoskeletal strain, Back muscle spasm, Fixation hardware in spine Prescriptions: No Action medroxyprogesterone [Depo-Provera] 150 mg/mL suspension 150 mg IM [id number] Qty: 1 3RF buspirone 5 mg tablet 5 mg PO QHS sertraline 50 mg tablet 75 mg PO DAILY tizanidine 4 mg tablet 4 mg PO QHS PRN (Reason: muscle spasticity) Primary Care Provider: Aditi Cat Referrals: Aditi Cat, [employer] [facility] [Primary Care Provider] - Activity Restrictions/Additional Instructions: Your CT scans here in the emergency department did not show any acute findings. Use prescriptions as prescribed that you already have for your cyclobenzaprine, tizanidine, [place]. Do not operate anything under the influence of these medications. You can also rotate Tylenol and ibuprofen [id number] when you do this she can take something every 3 hours max dose of Tylenol in 24 hours 4000 mg max dose of ibuprofen in 24 hours 3200 mg. Return with any other concerns otherwise follow-up with your spine surgeon in the outpatient setting as well. Follow-up with your primary care physician. Print Language: Nam[place]ian Disposition Disposition: Home, Self Care
--- OUTSIDE RECORDS SUMMARY | 2024-09-15 02:17 | XMS RPT_ITS | CCD ---
Author Organization [facility] Care Team Providers Care Wardrobe Technician Name Role Phone Julissa Robinson Unavailable Unavailable BitPanchito morgan Unavailable Unavailable No Doctor Assigned, Nodr Unavailable Unavail able Jucathy Robinson Unavailable Unavailable Jucathy, Robinson Unavailable Unavailable No Doctor Assigned, Nodr Unavailable Unavail able No Doctor Assigned, Nodr Unavailable Unavail able Moo, Lexi A Unavailable Unavailable Moo, Lexi A Unavailable Unavailable Toni Barrera MD Primary Care Provider Toni Barrera MD Primary Care Provider Toni Barrera MD Primary Care Provider Toni Barrera MD Primary Care Provider Unavailable Primary Care Provider Unavailabl e Toni Barrera MD Primary Care Provider Dr. Toni Barrera Primary Care Provider Dr. Kuldeep Emanuel Emergency Provider MD Solis Gonsalez Attending Provider Dr. Toni Barrera Referring Provider Dr. Josh Robb Attending Provider IAN Waldrop Attending Provider Toni Barrera MD Primary Care Provider Dr. Toni Barrera Primary Care Provider Dr. Toni Barrera Referring Provider Brinda TIAN, ASMITA-C Deanna Attending Provider Dr. Toni Barrera Primary Care Provider Dr. Toni Barrera Referring Provider Brinda TIAN, SALESPERSON HANDBAGS-C Deanna Attending Provider Dr. Toni Barrera Primary Care Provider Dr. Josh Robb Attending Provider Dr. Toni Barrera Referring Provider Brinda SALESPERSON HANDBAGS, SALESPERSON HANDBAGS-C Deanna Attending Provider Holly JHA, Toni Marc Primary Care Provider [phone] Toni Barrera MD Primary Care Provider [phone] SALGUERO JR., AMBER W Referring Unavailable SALGUERO JR., AMBER W Attending Unavailable HOLLY, TONI A Primary Care Unavailable SALGUERO JR., AMBER W Referring Unavailable SALGUERO JR., AMBER W Attending Unavailable HOLLY, TONI A Primary Care Unavailable SALGUERO JR., AMBER W Referring Unavailable SALGUERO JR., AMBER W Attending Unavailable HOLLY, TONI A Primary Care Unavailable SALGUERO JR., AMBER W Referring Unavailable SALGUERO JR., AMBER W Attending Unavailable HOLLY, TONI A Primary Care Unavailable SELF, SELF Referring Unavailable HOLLY, TONI A Primary Care Unavailable KAVURI, JUAN C Attending Unavailable SALGUERO JR., AMBER W Referring Unavailable HOLLY, TONI A Primary Care Unavailable KAVURI, JUAN C Attending Unavailable HOLLY, TONI A Primary Care Unavailable KAVURI, JUAN C Attending Unavailable KAVURI, JUAN C Referring Unavailable SELF, SELF Referring Unavailable HOLLY, TONI A Primary Care Unavailable KAVURI, JUAN C Attending Unavailable SALGUERO JR., AMBER W Referring Unavailable SALGUERO JR., AMBER W Attending Unavailable HOLLY, TONI A Primary Care Unavailable SALGUERO JR., AMBER W Referring Unavailable SALGUERO JR., AMBER W Attending Unavailable HOLLY, TONI A Primary Care Unavailable SALGUERO JR., AMBER W Referring Unavailable SALGUERO JR., AMBER W Attending Unavailable HOLLY, TONI A Primary Care Unavailable SALGUERO JR., AMBER W Attending Unavailable HOLLY, TONI A Primary Care Unavailable SALGUERO JR., AMBER W Referring Unavailable SALGUERO JR., AMBER W Referring Unavailable SALGUERO JR., AMBER W Attending Unavailable HOLLY, TONI A Primary Care Unavailable Trae MEDIA LIBRARIAN.PROFESSOR OF PHYSICAL EDUCATION, Dorita Unavailable Gonzalez PA-C, Erma Unavailable [phone] MED, INDIRESHA R Admitting Unavailable MED, INDIRESHA R Attending Unavailable MED, INDIRESHA R Referring Unavailable HOLLY, TONI A Primary Care Unavailable Knoble MEDIA LIBRARIAN.PROFESSOR OF PHYSICAL EDUCATION, Dorita Unavailable Carlos ANGELO, Erma Unavailable Holly JHA, Dr. Muñoz Primary Care Provider Dr. Toni Barrera MD Referring Provider Dalila Prasad CNM Attending Provider Brinda SALESPERSON HANDBAGS-C, Deanna Attending Provider [phone] Alejandrina Madrid Attending Unavailable Holly, Toni Primary Care Unavailable Holly, Toni Referring Unavailable Brinda SALESPERSON HANDBAGS, Deanna Attending Unavailable Holly, Toni Referring Unavailable Holly, Toni Primary Care Unavailable Alejandrina Madrid Attending Unavailable Holly, Toni Referring Unavailable Holly, Toni Primary Care Unavailable Dalila Prasad Attending Unavailable Holly, Toni Referring Unavailable Holly, Toni Primary Care Unavailable Holly, Toni Referring Unavailable Holly, Toni Primary Care Unavailable Brinda SALESPERSON HANDBAGS, Deanna Attending Unavailable QUANSUKHJINDER Attending Unavailable QUANSUKHJINDER Referring Unavailable Holly, Toni Primary Care Unavailable QUANSUKHJINDER Attending Unavailable QUAN, SUKHJINDER Referring Unavailable Holly, Toni Primary Care Unavailable DORITA LARKIN Attending Unavailable HOLLY, TONI A Primary Care Unavailable HOLLY, TONI A Primary Care Unavailable KNOBLE, DORITA Referring Unavailable KNDORITA VELEZ Attending Unavailable HOLLY, TONI A Primary Care Unavailable HOLLY, TONI A Primary Care Unavailable LENA CORBETT Attending Unavailable HOLLY, TONI A Primary Care Unavailable KNOBLE, DORITA Referring Unavailable KNOBLEDORITA Attending Unavailable HOLLY, TONI A Primary Care Unavailable HOLLY, TONI A Primary Care Unavailable TERENCE MOCTEZUMA Attending Unavailable HOLLY, TONI A Primary Care Unavailable KNOBLE, DORITA Referring Unavailable HOLLY, TONI A Primary Care Unavailable KNDORITA VELEZ Attending Unavailable KNOBLE, DORITA Referring Unavailable HOLLY, TONI A Primary Care Unavailable HOLLY, TONI A Primary Care Unavailable DORITA LARKIN Attending Unavailable Allergies Allergy Classification Reported Allergen(s) Allergy Type Date of Onset Reaction(s) Facility Amoxicillin / Clavulanate (1 source) Amoxicillin / Clavulanate Drug Allergy 1 Mental Status Change [facility] (1 source) amoxicillin / clavulanate; Translations: [Augmentin] Drug Allergy [facility] (20 sources) Amoxicillin / Clavulanate; Translations: [AMOXICILLIN-PO T CLAVULANATE] Drug Allergy 1 Mental Status Change, Nausea and Vomiting [facility] (8 sources) Amoxicillin; Translations: [amoxicillin trihydrate] Drug Allergy 3 Unknown [facility] (8 sources) potassium clavulanate; Translations: [potassium clavulanate] Allergy to substance 3 Unknown [facility] Medications Current Medications Medication Drug Class(es) Dates Sig (Normalized) Sig (Original) acetaminophen 500 mg oral tablet (15 sources) Start: 01-21-2023 take 2 tablets by mouth every eight hours Acetaminophen 500 MG tablet Take 2 tablets by mouth every 8 hours. 01/21/2023 Active Start: 01-17-2023 End: 01-22-2023 Acetaminophen (TYLENOL) tabl et 975 mg azithromycin 250 mg oral tablet (1 source) Macrolide Antimicrobial Start: 02-08-2022 End: 02-13-2022 azithromycin (ZITHROMAX Z-NATHALY) 250 mg tablet Indications: Acute pharyngitis, unspecified etiology , Sinusitis, unspecified chronicity, unspecified location Take 2 tablets day one, then, 1 tablet daily until gone. 6 tablet 0 02/08/2022 02/13/2022 Active Comment on above: Take 2 tablets day o ne, then, 1 tablet daily until gone. busPIRone hydrochloride 5 mg oral tablet (11 sources) Start: 05-17-2024 End: 09-03-2024 take 1 tablet by mouth once daily at bedtime busPIRone (BUSPAR) 5 mg tablet Indications: SONIYA (generalized anxiety disorder) Take 1 tablet by mouth daily at bedtime. 90 tablet 1 09/03/2024 Active cefadroxil 500 mg oral capsule (2 sources) Cephalosporin Antibacterial Start: 05-26-2022 End: 06-05-2022 take 1 capsule by mouth twice daily cefadroxil 500 MG capsule Take 1 capsule by mouth 2 times daily. 20 capsule 0 05/26/2022 06/05/2022 Active Comment on above: Take 1 capsule by mo ut twice daily for 10 days. cefdinir 300 mg oral capsule (4 sources) Cephalosporin Antibacterial Start: 01-02-2024 End: 01-09-2024 take 1 capsule by mouth twice daily cefdinir (OMNICEF) 300 mg capsule Indications: Acute otitis media, unspecified otitis media type Take 1 capsule by mouth two times a day for 7 days. 14 capsule 01/02/2024 01/09/2024 Active cephalexin 500 mg oral capsule (1 source) Cephalosporin Antibacterial Start: 06-26-2024 End: 07-01-2024 take 1 capsule by mouth four times daily cephALEXin (KEFLEX) 500 mg capsule Take 1 capsule by mouth four times daily for 5 days. 20 capsule 06/26/2024 07/01/2024 Active docusate sodium 100 mg oral capsule (15 sources) Start: 01-17-2023 End: 02-07-2024 take 1 capsule by mouth twice daily Docusate 100 MG capsule Take 1 capsule by mouth 2 times daily. 60 capsule 0 01/21/2023 02/20/2023 Active Comment on above: Take 100 mg by mouth two times a day. doxycycline hyclate 100 mg oral tablet (3 sources) Tetracycline-class Drug Start: 05-31-2023 End: 06-05-2023 take 1 tablet by mouth twice daily doxycycline (VIBRA-TABS) 100 mg tablet Indications: Bacterial sinusitis Take 1 tablet by mouth two times a day for 5 days. 10 tablet 0 05/31/2023 06/05/2023 Active Start: 02-08-2022 End: 02-15-2022 take 1 tablet by mouth twice daily doxycycline monohydrate 100 mg tablet Indications: Other acute sinusitis, recurrence not specified Take 1 tablet by mouth twice daily for 7 days. 14 tablet 0 02/08/2022 02/15/2022 Active Comment on above: Take 1 tablet by felicita twice daily for 7 days. Take 1 tablet by felicita th two times a day for 5 days. 0.4 ml enoxaparin sodium 100 mg/ml prefilled syringe (19 sources) Low Molecular Weight Heparin Start: End: inject 0.4 mL by subcutaneous injection every twenty-four hours Enoxaparin Sodium 40 MG/0.4ML injection Indications: DVT/PE prophylaxis Inject 0.4 mL under the skin every 24 hours. 12 mL 01/21/2023 Active Start: 01-18-2023 End: 01-22-2023 Enoxaparin Sodium (LOVENOX) injection 40 mg End: 02-07-2024 inject 1 mg by subcutaneous injection once daily enoxaparin (LOVENOX) 40 mg/0.4 mL Inject 1 mg/kg/dose subcutaneously once daily. 02/07/2024 Discontinued Comment on above: Inject 1 mg/kg/dose subcutaneously once daily. gabapentin 300 mg oral capsule (20 sources) Anti-epileptic Agent Star t: 12-05 End: 05-24 take 1 capsule by mouth three times daily Gabapentin 300 MG capsule Take 1 capsule by mouth 3 times daily. 12/23/2022 Active Comment on above: Take 300 mg by mouth three times a day. 1 ml medroxyPROGESTERone acetate 150 mg/ml injection (9 sources) Progestin Star t: 07-05 End: 09-05 inject 150 mg by intramuscular injection every three months Medroxyprogesterone (Depo-Provera) 150 mg/mL suspension Active 150 mg IM every 3 months September 28, 2023 3:32pm methocarbamol 750 mg oral tablet (10 sources) Muscle Relaxant Star t: 03-08 Methocarbamol 750 MG tablet 03/30/2023 Active naloxone hydrochloride 40 mg/ml nasal spray (8 sources) Opioid Antagonist Star t: 01-05 End: 01-05 naloxone 4 MG/0.1ML 1 spray by Nasal route As directed PRN for Opioid Reversal. [place] into the nose as directed. Call 911. If no response in 2 minutes use a new nasal spray in other nostril. Repeat until help arrives. 2 Each 01/21/2023 Active ondansetron 4 mg oral tablet (16 sources) Serotonin-3 Receptor Antagonist Star t: 01-05 End: 01-06 take 1 tablet by mouth every eight hours as needed Ondansetron 4 MG tablet Take 1 tablet by mouth every 8 hours as needed for Nausea / Vomiting for up to 3 days. 9 tablet 0 01/21/2023 01/24/2023 Active Start: 01-17-2023 End: 01-22-2023 take 1 tablet by mouth every six hours as needed Ondansetron (ZOFRAN) tablet 4 mg Start: 01-10-2019 End: 10-15-2019 take 1 tablet by mouth three times daily as needed for nausea and vomiting Ondansetron Hcl (Zofran) 4 mg tablet Discontinued 4 mg PO THREE TIMES A DAY as needed for nausea and vomiting 60 January 10, 2019 1:00am October 15, 2019 2:31pm Start: 07-13-2016 End: 01-10-2019 take 1 tablet by mouth every eight hours as needed for nausea Ondansetron 4 MG tablet Discontinued 4 mg PO EVERY 8 HOURS NEEDED as needed for Nausea July 13, 2016 12:00am January 10, 2019 4:28pm oxyCODONE hydrochloride 5 mg oral tablet (20 sources) Opioid Agonist Start: 01-31-2023 take 1 tablet by mouth every six hours as needed for pain oxyCODONE 5 MG tablet Indications: S/P fusion of thoracic spine , Scheuermann's kyphosis Take 1 tablet by mouth every 6 hours as needed for Severe Pain (max 4/ day) for up to 7 days. 28 tablet 01/31/2023 Active Start: 01-21-2023 End: 01-28-2023 take 1-2 tablets by mouth every four hours as needed for pain, then take 8 tablets by mouth once daily as needed for pain oxyCODONE 5 MG tablet Indications: S/P spinal fusion Take 1-2 tablets by mouth every 4 hours as needed for Moderate Pain or Severe Pain (Hold for sedation. Max 8 tabs per day.) for up to 7 days. 56 tablet 0 01/21/2023 01/28/2023 Active Start: 01-19-2023 End: 01-22-2023 take 1 tablet by mouth every four hours as needed oxyCODONE (ROXICODONE) tablet 5 mg Start: 01-17-2023 End: 01-18-2023 take 1 tablet by mouth every four hours as needed oxyCODONE (ROXICODONE) tablet 5 mg End: 02-07-2024 oxycodone HCl (OXYCODONE ORA L) Take 1 tablet by mouth three times a day. Pt i taking roughly 4 to 5 times a day 02/07/2024 Discontinued oxycodone HCl (O XYCODONE ORAL) Take 1 tablet by mouth three times a day. Pt i taking roughly 4 to 5 times a day Active oxycodone HCl (O XYCODONE ORAL) Take 1 tablet by mouth three times a day. Pt i taking roughly 4 to 5 times a day 0 Active Comment on above: Take 1 tablet by felicita three times a day. Pt i taking roughly 4 to 5 times a day sertraline 50 mg oral tablet (11 sources) Serotonin Reuptake Inhibitor Start: 07-20-2024 End: 09-03-2024 take 1.5 tablets by mouth once daily sertraline (ZOLOFT) 50 mg tablet Indications: SONIYA (generalized anxiety disorder) Take 1.5 tablets by mouth once daily. 135 tablet 1 09/03/2024 Active Start: 05-17-2024 End: 07-20-2024 take 1 tablet by mouth once daily sertraline (ZOLOFT) 50 mg tablet Indications: SONIYA (generalized anxiety disorder) Take 1 tablet by mouth once daily. 60 tablet 05/17/2024 07/20/2024 Discontinued tiZANidine 4 mg oral tablet (20 sources) Central alpha-2 Adrenergic Agonist Start: 07-20-2024 take 1 tablet by mouth at bedtime as needed tiZANidine (ZANAFLEX) 4 mg tablet Indications: Kyphosis of thoracic region, unspecified kyphosis type Take 1 tablet by mouth at bedtime as needed. 30 tablet 07/20/2024 Active Start: 02-10-2023 End: 11-17-2023 take 1 tablet by mouth at bedtime Tizanidine 4 mg tablet Discontinued 4 mg PO BEDTIME March 28, 2023 1:00am November 17, 2023 3:12pm Start: 09-13-2022 End: 02-07-2024 take 1 tablet by mouth once daily at bedtime tiZANidine (ZANAFLEX) 4 mg tablet Take 4 mg by mouth daily at bedtime. 09/13/2022 02/07/2024 Discontinued Comment on above: Take 4 mg by mouth d aily at bedtime. Completed/Discontinued Medications Medication Drug Class(es) Dates Sig (Normalized) Sig (Original) acetaminophen 500 mg / diphenhydrAMINE hydrochloride 25 mg oral tablet (13 sources) Histamine-1 Receptor Antagonist End: 02-07-2024 take 2 tablets by mouth four times daily in the evening diphenhydrAMINE-Ac etaminophen (TYLENOL PM EXTRA STRENGTH) 25-500 mg tab Take 2 tablets by mouth four times daily. 02/07/2024 Discontinued Comment on above: Take 2 tablets by mo uth four times daily. acetaminophen 325 mg / HYDROcodone bitartrate 5 mg oral tablet (20 sources) Opioid Agonist Start: 10-12-2022 End: 01-18-2023 hydroCODone-acetam inophen 5-325 MG tablet Take 1 tablet by mouth as needed. 0 10/12/2022 01/18/2023 Discontinued (Stop Taking at Discharge) Start: 07-23-2022 End: 08-06-2022 Hydrocodone-Acetaminophen 5- 325 mg tablet Discontinued 1 {tbl} PO Q4H as needed for pain 18 09July 23, 2022 August 06, 2022 2:56pm Start: 07-23-2022 End: 08-06-2022 take 1 tablet by mouth every four hours Hydrocodone-Acetaminophen Discontinued 1 TABLET PO Q4H 18 09July 23, 2022 August 06, 2022 2:56pm Start: 07-16-2022 End: 03-28-2023 Hydrocodone-Acetaminophen 5- 300 mg tablet Discontinued 1 {tbl} PO TWICE A DAY as needed for Pain July 16, 2022 12:00am March 28, 2023 4:12pm Start: 07-16-2022 End: 03-28-2023 take 1 tablet by mouth twice daily Hydrocodone-Acetaminophen Discontinued 1 TABLET PO TWICE A DAY July 16, 2022 12:00am March 28, 2023 4:12pm Start: 04-18-2022 End: 05-03-2022 Hydrocodone-Acetaminophen 5- 325 mg tablet Discontinued 1 {tbl} PO EVERY 6 HOURS NEEDED as needed for Pain 02 06April 18, 2022 May 03, 2022 10:55am Start: 04-18-2022 End: 05-03-2022 take 1 tablet by mouth every six hours as needed Hydrocodone-Acetaminophen Discontinued 1 TABLET PO EVERY 6 HOURS NEEDED 12 3 April 18, 2022 May 03, 2022 10:55am End: 02-07-2024 hydrocodone/acetaminophen (V ICODIN ORAL) Take 1 tablet by mouth as needed. 02/07/2024 Discontinued hydrocodone/acet aminophen (VICODIN ORAL) Take 1 tablet by mouth as needed. Active hydrocodone/acet aminophen (VICODIN ORAL) Take 1 tablet by mouth as needed. 0 Active hydrocodone/acet aminophen (VICODIN ORAL) Take by mouth. 0 Active Comment on above: Take by mouth. Take 1 tablet by felicita th as needed. 500 ml albumin human, prison 50 mg/ml injection (1 source) Human Serum Albumin Start: 01-17-2023 End: 01-17-2023 albumin human 5 % injection 50 g aluminum hydroxide 40 mg/ml / magnesium hydroxide 40 mg/ml / simethicone 4 mg/ml oral suspension (1 source) Start: 01-17-2023 End: 01-22-2023 take 30 mL by mouth every six hours as needed alum/mag hydrox.-simethicone oral suspension 30 mL Aspirin-Acetaminophen -Caffeine (EXCEDRIN PO) (5 sources) End: 01-03-2023 Aspirin-Acetaminophen -Caffeine (EXCEDRIN PO) Take by mouth. 0 01/03/2023 Discontinued Aspirin-Acetamin ophen-Caffeine (EXCEDRIN PO) Take by mouth. 0 Active bisacodyl 10 mg rectal suppository (1 source) Stimulant Laxative Start: 01-17-2023 End: 01-21-2023 bisacodyl (DULCOLAX) suppository 10 mg calcium chloride 0.0014 meq/ml / potassium chloride 0.004 meq/ml / sodium chloride 0.103 meq/ml / sodium lactate 0.028 meq/ml injectable solution (2 sources) Start: 01-17-2023 End: 01-18-2023 Lactated ringers IV solution ceFAZolin 2000 mg injection (1 source) Cephalosporin Antibacterial Start: 01-17-2023 End: 01-21-2023 ceFAZolin (ANCEF) 2 g in dextrose 100 mL premix IVPB cyclobenzaprine hydrochloride 10 mg oral tablet (20 sources) Muscle Relaxant Start: 02-07-2024 End: 07-20-2024 take 1 tablet by mouth three times daily as needed for muscle spasms cyclobenzaprine (FLEXERIL) 10 mg tablet Indications: Acute bilateral low back pain without sciatica Take 1 tablet by mouth three times a day as needed for muscle spasm. 30 tablet 2 02/07/2024 07/20/2024 Discontinued Start: 09-28-2023 End: 11-17-2023 take 1 tablet by mouth three times daily as needed Cyclobenzaprine 10 mg tablet Discontinued 10 mg PO THREE TIMES A DAY as needed September 28, 2023 12:00am November 17, 2023 3:12pm Start: 01-31-2023 End: 02-07-2024 take 1 tablet by mouth three times daily as needed for muscle spasms Cyclobenzaprine 5 MG tablet Take 1 tablet by mouth 3 times daily as needed for Muscle spasms. 45 tablet 1 01/31/2023 Active Start: 01-21-2023 End: 01-26-2023 take 1 tablet by mouth every eight hours as needed Cyclobenzaprine 5 MG tablet Take 1 tablet by mouth every 8 hours as needed for Muscle spasms for up to 5 days. 15 tablet 0 01/21/2023 01/26/2023 Active Start: 01-17-2023 End: 01-22-2023 Cyclobenzaprine (FLEXERIL) t ablet 5 mg Start: 12-21-2022 End: 01-21-2023 Cyclobenzaprine 10 MG tablet Take 1 tablet by mouth as needed. 0 12/21/2022 01/21/2023 Discontinued (Stop Taking at Discharge) Start: 04-21-2020 End: 09-24-2022 take 1 tablet by mouth every eight hours as needed cyclobenzaprine (FLEXERIL) 10 mg tablet Take 1 tablet by mouth three times daily as needed for Muscle Spasm. 30 tablet 04/21/2020 09/24/2022 Discontinued Start: 07-20-2019 End: 10-15-2019 take 1 tablet by mouth three times daily as needed for muscle spasms Cyclobenzaprine 10 mg tablet Discontinued 10 mg PO THREE TIMES A DAY as needed for muscle spasm July 20, 2019 12:00am October 15, 2019 2:31pm Comment on above: Take 1 tablet by felicita three times daily as needed for Muscle Spasm. Take 5 mg by mouth t hree times a day. diazePAM 2 mg oral tablet (1 source) Benzodiazepine Start: 01-18-20 End: 01-23-20 take 1 tablet by mouth every six hours as needed Diazepam (VALIUM) tablet 2 mg diclofenac sodium 0.01 mg/mg topical gel (6 sources) Nonsteroidal Anti-inflammatory Drug Start: 04-12-19 End: 01-04-20 Diclofenac sodium (Voltaren) 1 % Gel gel Apply 2 g topically 4 times daily. 150 g 1 04/12/2022 01/03/2023 Discontinued fluconazole 150 mg oral tablet (8 sources) Azole Antifungal Start: 01-09-20 End: 02-16-20 Fluconazole 150 mg tablet Discontinued 150 mg PO .COMPLEX 2 January 09, 2024 1:00am February 16, 2024 4:02pm 150 mg PO take one po now and repeat in 3 days Start: 06-07-2022 End: 07-16-2022 Fluconazole (Diflucan) 150 m g tablet Discontinued 150 mg PO Every 3 Days June 07, 2022 12:00am July 16, 2022 11:05am Gadopiclenol SOLN 1-25 mL (1 source) Start: 01-24-2024 End: 01-24-2024 1-25 mL, Intravenous, ONCE, 1 dose, On 01/24/24 at 1800 1 ml HYDROmorphone hydrochloride 1 mg/ml cartridge (1 source) Opioid Agonist Start: 01-17-2023 End: 01-17-2023 HYDROmorphone (DILAUDID) injection 0.5 mg iv contrast (will be provided with radiology test) (6 sources) Start: 02-17-2023 End: 02-18-2023 iv contrast (will be provided with radiology test) Indications: Adverse effect of treatment, subsequent encounter MRI LSP Inject, intravenously, once for 1 dose. No IV access, insert saline lock prior to the beginning of sedation, infusion, injection of imaging exam. Discontinue saline lock post exam. If Pt. has a central line or IVAD, may access for administration according to line specific nursing protocol. Once exam is complete flush line and de-access according to line specific nursing protocol in the MR contrast administration guidelines link. 1 Each 02/17/2023 02/18/2023 Start: 02-17-2023 End: 02-18-2023 inject 1 dose intravenously once iv contrast (will be provided with radiology test) Indications: Adverse effect of treatment, subsequent encounter MRI TSP Inject, intravenously, once for 1 dose. No IV access, insert saline lock prior to the beginning of sedation, infusion, injection of imaging exam. Discontinue saline lock post exam. If Pt. has a central line or IVAD, may access for administration according to line specific nursing protocol. Once exam is complete flush line and de-access according to line specific nursing protocol in the MR contrast administration guidelines link. 1 Each 02/17/2023 02/18/2023 Start: 02-17-2023 End: 02-18-2023 iv contrast (will be provide d with radiology test) Indications: Adverse effect of treatment, subsequent encounter MRI LSP Inject, intravenously, once for 1 dose. No IV access, insert saline lock prior to the beginning of sedation, infusion, injection of imaging exam. Discontinue saline lock post exam. If Pt. has a central line or IVAD, may access for administration according to line specific nursing protocol. Once exam is complete flush line and de-access according to line specific nursing protocol in the MR contrast administration guidelines link. 1 Each 0 02/17/2023 02/18/2023 Active Start: 02-17-2023 End: 02-18-2023 inject 1 dose intravenously once iv contrast (will be provided with radiology test) Indications: Adverse effect of treatment, subsequent encounter MRI TSP Inject, intravenously, once for 1 dose. No IV access, insert saline lock prior to the beginning of sedation, infusion, injection of imaging exam. Discontinue saline lock post exam. If Pt. has a central line or IVAD, may access for administration according to line specific nursing protocol. Once exam is complete flush line and de-access according to line specific nursing protocol in the MR contrast administration guidelines link. 1 Each 0 02/17/2023 02/18/2023 Active Start: 05-25-2022 End: 05-26-2022 iv contrast (will be provide d with radiology test) Indications: RUQ abdominal pain , LUQ abdominal pain CT ABD/PEL -Inject, intravenously, once for 1 dose.No IV access, insert saline lock prior to the beginning of sedation, infusion, injection of imaging exam. Discontinue saline lock post exam. If Pt. has a central line or IVAD, may access for administration according to line specific nursing protocol. Once exam is complete flush line and de-access according to line specific nursing protocol in the CT contrast administration guidelines link. 1 Each 0 05/25/2022 05/26/2022 Start: 05-25-2022 End: 05-26-2022 iv contrast (will be provide d with radiology test) Indications: RUQ abdominal pain , LUQ abdominal pain CT ABD/PEL -Inject, intravenously, once for 1 dose.No IV access, insert saline lock prior to the beginning of sedation, infusion, injection of imaging exam. Discontinue saline lock post exam. If Pt. has a central line or IVAD, may access for administration according to line specific nursing protocol. Once exam is complete flush line and de-access according to line specific nursing protocol in the CT contrast administration guidelines link. 1 Each 0 05/25/2022 05/26/2022 Active Comment on above: CT ABD/PEL -Inject, intravenously, once for 1 dose.No IV access, insert saline lock prior to the beginning of sedation, infusion, injection of imaging exam. Discontinue saline lock post exam. If Pt. has a central line or IVAD, may access for administration according to line specific nursing protocol. Once exam is complete flush line and de-access according to line specific nursing protocol in the CT contrast administration guidelines link. MRI LSP Inject, intr avenously, once for 1 dose. No IV access, insert saline lock prior to the beginning of sedation, infusion, injection of imaging exam. Discontinue saline lock post exam. If Pt. has a central line or IVAD, may access for administration according to line specific nursing protocol. Once exam is complete flush line and de-access according to line specific nursing protocol in the MR contrast administration guidelines link. MRI TSP Inject, intr avenously, once for 1 dose. No IV access, insert saline lock prior to the beginning of sedation, infusion, injection of imaging exam. Discontinue saline lock post exam. If Pt. has a central line or IVAD, may access for administration according to line specific nursing protocol. Once exam is complete flush line and de-access according to line specific nursing protocol in the MR contrast administration guidelines link. 1 ml ketorolac tromethamine 15 mg/ml cartridge (1 source) Nonsteroidal Anti-inflammatory Drug, Cyclooxygenase Inhibitor Start: 2022 End: 2022 take 15 mg intravenously every six hours as needed Ketorolac (TORADOL) injection 15 mg levonorgestrel 0.111467 mg/hr intrauterine system (7 sources) Progestin, Progestin-containing Intrauterine Device Start: 2022 End: 2022 Levonorgestrel (Liletta) 20.4 mcg/24 hrs (8 yrs) 52 mg intrauterine device Discontinued 1 NMA INTRA-UTER ONCE June 07, 2022 12:00am July 23, 2022 12:26pm as a single dose Start: 06-07-2022 End: 07-23-2022 Levonorgestrel (Liletta) 20. 4 mcg/24 hrs (8 yrs) 52 mg intrauterine device Discontinued 1 DEVICE INTRA-UTER ONCE June 07, 2022 12:00am July 23, 2022 12:26pm as a single dose lidocaine 0.05 mg/mg medicated patch (6 sources) Antiarrhythmic, Amide Local Anesthetic Start: 04-12-2022 End: 01-03-2023 lidocaine 5 % Patch patch Place 1 patch on skin every 24 hours. Max of 12 hours of application then remove. 30 patch 1 04/12/2022 01/03/2023 Discontinued magnesium oxide 200 mg oral tablet (7 sources) Start: 06-07-2022 End: 10-12-2022 take 1 tablet by mouth once daily Magnesium Oxide 200 mg magnesium tablet Discontinued 200 mg PO DAILY June 07, 2022 12:00am October 12, 2022 10:39am melatonin 3 mg oral tablet (1 source) Start: 01-17-2023 End: 01-22-2023 Melatonin tablet 6 mg meloxicam 7.5 mg oral tablet (20 sources) Nonsteroidal Anti-inflammatory Drug Start: 04-19-2022 End: 02-07-2024 take 1 tablet by mouth twice daily as needed for pain Meloxicam 7.5 mg tablet Discontinued 7.5 mg PO TWICE A DAY as needed for pain April 19, 2022 1:00am October 12, 2022 10:39am Comment on above: Take by mouth. Take 1 tablet by felicita th two times a day. metoclopramide 10 mg oral tablet (7 sources) Dopamine-2 Receptor Antagonist Start: 02-05-2019 End: 10-15-2019 take 1 tablet by mouth three times daily as needed for headache Metoclopramide Hcl (Reglan) 10 mg tablet Discontinued 10 mg PO THREE TIMES A DAY as needed for headache February 05, 2019 1:00am October 15, 2019 2:31pm metroNIDAZOLE 500 mg oral tablet (7 sources) Nitroimidazole Antimicrobial Start: 10-15-2019 End: 10-22-2019 take 1 tablet by mouth twice daily Metronidazole (Flagyl) 500 mg tablet Discontinued 500 mg PO TWICE A DAY 14 October 15, 2019 12:00am October 21, 2019 12:00am October 22, 2019 12:02am 30 ml morphine sulfate 1 mg/ml injection (1 source) Opioid Agonist Start: 01-17-2023 End: 01-18-2023 Morphine 30 mg/30 mL stock manager syringe Multivit 01-Dhbc-Eweroy 1-Dha (Pnv-Dha) 27 mg iron-1 mg -300 mg capsule (7 sources) Start: 01-17-2019 End: 10-15-2019 Multivit 31-Nkia-Pqnsfq 1-Dha (Pnv-Dha) 27 mg iron-1 mg -300 mg capsule Discontinued 1 NMA PO DAILY January 17, 2019 1:00am October 15, 2019 2:31pm Start: 01-17-2019 End: 10-15-2019 take 1 capsule by mouth once daily Multivit 97-Wprr-Xdzzjj 1-Dha (Pnv-Dha) 27 mg iron-1 mg -300 mg capsule Discontinued 1 CAP PO DAILY January 17, 2019 12:00am October 15, 2019 1:31pm Start: 01-17-2019 End: 10-15-2019 take 1 capsule by mouth once daily Multivit 31-Fzsf-Bwrevk 1-Dha (Pnv-Dha) 27 mg iron-1 mg -300 mg capsule Discontinued 1 CAP PO DAILY January 17, 2019 1:00am October 15, 2019 2:31pm Naloxone (NARCAN) injection 0.1 mg (1 source) Start: 01-17-2023 End: 01-22-2023 Naloxone (NARCAN) injection 0.1 mg naproxen 500 mg oral tablet (20 sources) Nonsteroidal Anti-inflammatory Drug Start: 04-21-2020 End: 07-13-2022 take 1 tablet by mouth every twelve hours as needed naproxen (NAPROSYN) 500 mg tablet Take 1 tablet by mouth twice daily as needed (for pain/inflammation). Take with food. 60 tablet 04/21/2020 07/13/2022 Discontinued Start: 08-30-2019 End: 10-15-2019 take 250-500 mg by mouth every eight hours as needed for pain Naproxen 250 MG tablet Discontinued 250 - 500 mg PO EVERY 8 HOURS NEEDED as needed for MILD PAIN August 30, 2019 12:00am October 15, 2019 2:31pm Comment on above: Take 1 tablet by felicita twice daily as needed (for pain/inflammation). Take with food. nitrofurantoin, macrocrystals 25 mg / nitrofurantoin, monohydrate 75 mg oral capsule (7 sources) Nitrofuran Antibacterial Star t: 11-24 End: 01-05 take 1 capsule by mouth every twelve hours Nitrofurantoin Monohyd/M-Cryst 100 MG capsule Discontinued 100 mg PO EVERY 12 HOURS July 13, 2016 12:00am January 17, 2019 11:00am polyethylene glycol 3350 63405 mg powder for oral solution (17 sources) Osmotic Laxative Star t: 01-05 End: 05-24 Polyethylene glycol (MIRALAX) packet 17 g Comment on above: Take 17 g by mouth o ne time only. Dissolve dose in 4 - 8 ounces of liquid and take as directed. polyvinyl alcohol 0.014 ml/ml / povidone 6 mg/ml ophthalmic solution (1 source) Star t: 01-05 End: 01-05 take 1 drop(s) into the eye(s) every two hours as needed Polyvinyl Alcohol-Povidone PF (REFRESH) ophthalmic solution 1 drop povidone-iodine (3M SKIN and NASAL ANTISEPTIC) 5 % topical solution 1 Application (1 source) Star t: 01-05 End: 01-05 povidone-iodine (3M SKIN and NASAL ANTISEPTIC) 5 % topical solution 1 Application prazosin 1 mg oral capsule (3 sources) alpha-Adrenergic Taina Star t: 08-06 End: 09-05 take 1 capsule by mouth once daily at bedtime, then take 2 capsules by mouth once daily at bedtime prazosin (MINIPRESS) 1 mg cap Indications: Nightmares Take 1 capsule by mouth daily at bedtime for 3 days, THEN 2 capsules daily at bedtime. 63 capsule 0 08/24/2022 09/24/2022 Discontinued Comment on above: Take 1 capsule by mo uth daily at bedtime for 3 days, THEN 2 capsules daily at bedtime. prochlorperazine 5 mg/ml injectable solution (1 source) Phenothiazine Star t: 01-05 End: 01-05 take 10 mg intravenously every six hours as needed Prochlorperazine (COMPAZINE) injection 10 mg Prochlorperazine (COMPAZINE) injection 10 mg (1 source) Star t: 01-05 End: 01-05 take 10 mg intravenously every four hours as needed Prochlorperazine (COMPAZINE) injection 10 mg sennosides (SENOKOT ORAL) (13 sources) End: 05-24 sennosides (SENOKOT ORAL) Take 2 capsules by mouth. 02/07/2024 Discontinued sennosides (SENO WENDIE ORAL) Take 2 capsules by mouth. Active sennosides (SENO WENDIE ORAL) Take 2 capsules by mouth. 0 Active Comment on above: Take 2 capsules by m outh. sennosides, prison 8.6 mg oral tablet (3 sources) Start: 01-21-2023 End: 01-22-2023 Senna (SENOKOT) tablet 17.2 mg Start: 01-21-2023 End: 02-20-2023 take 1 tablet by mouth twice daily Senna 17.2 MG tablet Take 1 tablet by mouth 2 times daily. 60 tablet 0 01/21/2023 02/20/2023 Active Start: 01-17-2023 End: 01-21-2023 Senna (SENOKOT) tablet 8.6 m g 20 ml sodium chloride 9 mg/m l injection (2 sources) Start: 01-24-2024 End: 01-24-2024 1-100 mL, Intravenous, ONCE NEEDED, 1 dose, Starting on Tue01/24/24 at 1748, Until Tue01/24/24 at 1820, Flush, MR Procedure Start: 01-17-2023 End: 01-22-2023 Sodium chloride 0.9% IV solu tion 250 mL sodium phosphate, dibasic 35.5 mg/ml / sodium phosphate, monobasic 96.4 mg/ml enema (1 source) Start: 01-21-2023 End: 01-22-2023 sodium phosphate w/sodium biphosphate (FLEETS) enema 1 enema traZODone hydrochloride 50 mg oral tablet (20 sources) Serotonin Reuptake Inhibitor Start: 10-26-2022 End: 02-07-2024 take 1 tablet by mouth at bedtime Trazodone 50 mg tablet Discontinued 50 mg PO AT BEDTIME March 28, 2023 1:00am September 28, 2023 3:06pm Start: 09-24-2022 take 1 tablet by felicita th once daily at bedtime traZODone (DESYREL) 50 mg tablet Indications: Chronic insomnia Take 1 tablet by mouth daily at bedtime. 30 tablet 0 09/24/2022 Active Comment on above: Take 1 tablet by felicita th daily at bedtime. VERIFY LINKED PATCH PLACEMENT (1 source) Start: 01-17-2023 End: 01-22-2023 VERIFY LINKED PATCH PLACEMENT vitamin b12 1 mg oral tablet (20 sources) Vitamin B12 Start: 01-17-2023 End: 01-22-2023 take 1000 ug by mouth once daily at bedtime 1,000 mcg, Oral, DAILY AT BEDTIME, First dose on Tue01/17/23 at 2100, Until Discontinued Start: 11-25-2022 End: 02-07-2024 take 1 tablet by mouth once daily Cyanocobalamin (Vitamin B-12) 1,000 mcg tablet Discontinued 1000 ug PO DAILY March 28, 2023 1:00am September 28, 2023 3:06pm Comment on above: Take 1 tablet by felicita th once daily. Problems Active Problems Problem Classification Problem Date Documented Da te Episodic/Chronic Abdominal pain (14 sources) Right upper quadrant pain; Translations: [Right upper quadrant pain] Episodic Comment on above: labs ordered, review ed preeclampsia precautions, suspect neuropathic Acquired foot deformities (4 sources) Deformity of toe; Translations: [Acquired deformities of toe(s), unspecified, right foot] Episodic Anxiety disorders (20 sources) Generalized anxiety disorder; Translations: [Generalized anxiety disorder] Onset: 04-21-2020 04-21-2020 Chronic Cardiac dysrhythmias (1 source) Postural orthostatic tachycardia syndrome ; Translations: [POTS (postural orthostatic tachycardia syndrome)] 04-09-2024 Chronic Cardiac dysrhythmias (4 sources) ECG: sinus tachycardia; Translations: [Tachycardia, unspecified] 02-03-2023 Episodic Complications of surgical procedures or medical care (2 sources) Complication of procedure; Translations: [Complication of surgical and medical care, unspecified, subsequent encounter] 02-17-2023 Episodic Contraceptive and procreative management (15 sources) Patient encounter status; Translations: [Encounter for contraceptive management, unspecified] Onset: 05-17-2024 01-03-2023 Episodic Comment on above: depo provera-since 2 023. Empower negative Crushing injury or internal injury (7 sources) Crushing injury of finger; Translations: [Crushing injury of unspecified finger(s), initial encounter] 10-29-2021 Episodic Deficiency and other anemia (4 sources) Anemia; Translations: [Anemia, unspecified] 02-03-2023 Episodic Disorders of teeth and jaw (2 sources) Toothache; Translations: [Other specified disorders of teeth and supporting structures] Onset: 06-26-2024 06-26-2024 Episodic E Codes: Fall (3 sources) Fall from ladder; Translations: [Fall on and from ladder, subsequent encounter] Episodic Fracture of lower limb (9 sources) Fracture of phalanx of foot; Translations: [Unspecified fracture of right toe(s), initial encounter for closed fracture] 04-18-2022 Episodic Fracture of upper limb (8 sources) Closed fracture of distal phalanx of index finger; Translations: [Nondisplaced fracture of distal phalanx of right index finger, initial encounter for closed fracture] Episodic Miscellaneous mental health disorders (1 source) Dream anxiety disorder; 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 Nonspecific chest pain (7 sources) Chest pain; Translations: [Chest pain, unspecified] 10-24-2018 Episodic OB-related trauma to perineum and vulva (7 sources) First degree perineal tear during delivery - delivered; Translations: [First degree perineal laceration during delivery] 10-15-2019 Episodic Open wounds of extremities (20 sources) Laceration of finger; Translations: [Laceration without foreign body of unspecified finger without damage to nail, initial encounter] 10-29-2021 Episodic Other acquired deformities (20 sources) Kyphosis of thoracic spine; Translations: [Unspecified kyphosis, thoracic region] Onset: 03-24-2022 Chronic Other acquired deformities (7 sources) Kyphoscoliosis deformity of spine; Translations: [Scoliosis, unspecified] 10-15-2019 Chronic Other acquired deformities (1 source) Unspecified kyphosis, thoracic region; Translations: [Kyphosis of thoracic region, unspecified kyphosis type] Onset: 09-14-2022 Chronic Other and unspecified benign neoplasm (2 sources) Melanocytic nevus of skin ; Translations: [Melanocytic nevi, unspecified] 07-20-2024 Episodic Other and unspecified benign neoplasm (1 source) Melanocytic nevi, unspecified; Translations: [Benign mole] Onset: 07-20-2024 Episodic Other bone disease and musculoskeletal deformities (20 sources) Juvenile osteochondrosis of spine; Translations: [Juvenile osteochondrosis of spine, site unspecified] Onset: 01-18-2023 04-19-2022 Chronic Other bone disease and musculoskeletal deformities (3 sources) Juvenile osteochondrosis of spine, site unspecified; Translations: [Juvenile osteochondrosis of spine, site unspecified] Onset: 10-05-2023 Chronic Other bone disease and musculoskeletal deformities (7 sources) Bone pain; Translations: [Other specified disorders of bone, lower leg] 04-19-2022 Episodic Other bone disease and musculoskeletal deformities (6 sources) Other specified disorders of bone, lower leg; Translations: [Disorder of bone and cartilage, unspecified] 04-19-2022 Episodic Other circulatory disease (4 sources) Orthostatic hypotension; Translations: [Orthostatic hypotension] 02-03-2023 Episodic Other circulatory disease (1 source) Low blood pressure; Translations: [Hypotension, unspecified] 02-03-2023 Episodic Other circulatory disease (2 sources) Postural orthostatic tachycardia syndrome ; Translations: [Postural orthostatic tachycardia syndrome (POTS)] Onset: 04-04-2024 Episodic Other complications of ; puerperium affecting management of mother (7 sources) Atony of uterus; Translations: [Other specified complications of labor and delivery] 10-15-2019 Episodic Other complications of (6 sources) Nausea and vomiting; Translations: [Vomiting of , unspecified] 10-15-2019 Episodic Other complications of (7 sources) RhD negative; Translations: [Other specified related conditions, unspecified trimester] 10-15-2019 Episodic Comment on above: Rhogam at 28 wk and prn bleeding Other complications of (1 source) Vomiting of , unspecified; Translations: [Nausea and vomiting during ] 10-15-2019 Episodic Comment on above: zofran, reglan, disc ussed IVFs PRN. Other connective tissue disease (2 sources) Tendinitis of wrist; Translations: [Other enthesopathies, not elsewhere classified] Episodic Other connective tissue disease (1 source) Radial styloid tenosynovitis; Translations: [Radial styloid tenosynovitis [de Quervain]] Episodic Other connective tissue disease (1 source) Paraparesis; Translations: [Other symptoms and signs involving the musculoskeletal system] 02-17-2023 Episodic Other connective tissue disease (9 sources) History of fusion of thoracic spine; Translations: [Arthrodesis status] 03-03-2023 Episodic Other connective tissue disease (3 sources) History of lumbar fusion; Translations: [Arthrodesis status] 08-02-2023 Episodic Other connective tissue disease (1 source) Other symptoms and signs involving the musculoskeletal system; Translations: [Other musculoskeletal symptoms referable to limbs] 02-17-2023 Episodic Other gastrointestinal disorders (4 sources) Heartburn; Translations: [Heartburn] 02-03-2023 Episodic Other gastrointestinal disorders (4 sources) Constipation; Translations: [Constipation, unspecified] 02-03-2023 Episodic Other hereditary and degenerative nervous system conditions (1 source) Finding of scapular structure; Translations: [Other specified extrapyramidal and movement disorders] 01-17-2024 Chronic Other hereditary and degenerative nervous system conditions (3 sources) Other specified extrapyramidal and movement disorders; Translations: [Other specified extrapyramidal and movement disorders] Onset: 10-05-2023 Chronic Other lower respiratory disease (1 source) Dyspnea; Translations: [Shortness of breath] 02-03-2023 Episodic Other lower respiratory disease (2 sources) Wheezing; Translations: [Wheezing] 01-02-2024 Episodic Other nervous system disorders (2 sources) Paresthesia of lower extremity; Translations: [Anesthesia of skin] 02-17-2023 Episodic Other non-traumatic joint disorders (1 source) Pain in right knee; Translations: [Pain in joint, lower leg] Episodic Other and delivery including normal (20 sources) Vaginal delivery; Translations: [Encounter for full-term uncomplicated delivery] 10-15-2019 Episodic Comment on above: PRR JEZ 020 boy Riley Boyfriend-Curly declined genetic, ca rrier and NTD, normal anatomy Other skin disorders (2 sources) Excessive sweating; Translations: [Generalized hyperhidrosis] 02-03-2023 Episodic Other skin disorders (1 source) Personal history of diseases of the skin and subcutaneous tissue; Translations: [History of removal of skin mole] Onset: 08-08-2024 Episodic Other skin disorders (1 source) Generalized hyperhidrosis; Translations: [Diaphoresis] Onset: 07-20-2024 Episodic Other upper respiratory infections (2 sources) Sinusitis; Translations: [Chronic sinusitis, unspecified] Chronic Other upper respiratory infections (4 sources) Acute sinusitis; Translations: [Other acute sinusitis] Episodic Ovarian cyst (10 sources) Cyst of ovary; Translations: [Unspecified ovarian cyst, left side] 07-12-2022 Episodic Comment on above: 2.1cm simple cyst. Residual codes; unclassified (1 source) H/O Spinal surgery; Translations: [Other specified postprocedural states] 03-03-2023 Episodic Residual codes; unclassified (1 source) Past history of procedure; Translations: [Other specified postprocedural states] 08-08-2024 Episodic Residual codes; unclassified (1 source) Other specified postprocedural states; Translations: [History of removal of skin mole] Onset: 08-08-2024 Episodic Sprains and strains (8 sources) Sprain of foot; Translations: [Unspecified sprain of right foot, initial encounter] 04-26-2022 Episodic Superficial injury; contusion (7 sources) Contusion of lower limb; Translations: [Contusion of right lower leg, initial encounter] 04-26-2022 Episodic Unclassified (1 source) Acute bilateral low back pain without sciatica; Translations: [Acute bilateral low back pain without sciatica] Onset: 02-07-2024 Past or Other Problems Problem Classification Problem Date Documented Date Episodic/Chronic Complication of device; implant or graft (8 sources) Disorder of intrauterine contraceptive device; Translations: [Unspecified complication of genitourinary prosthetic device, implant and graft, initial encounter] Onset: 10-05-2023 07-30-2022 Episodic Comment on above: strings not visualiz ed. abstain from sexually activity. will obtain surgical consult JULIA for removal. interested in Depo following IUD removal. Conditions associated with dizziness or vertigo (5 sources) Dizziness; Translations: [Dizziness and giddiness] Onset: 06-04-2024 02-03-2023 Episodic Headache; including migraine (10 sources) Headache; Translations: [Headache] Onset: 08-02-2023 10-24-2018 Episodic Malaise and fatigue (4 sources) Fatigue; Translations: [Other fatigue] Onset: 06-04-2024 Episodic Nutritional deficiencies (3 sources) Cobalamin deficiency; Translations: [Deficiency of other specified B group vitamins] Onset: 02-07-2024 11-25-2022 Episodic Other connective tissue disease (16 sources) History of spinal fusion; Translations: [Arthrodesis status] Onset: 01-17-2023 01-21-2023 Episodic Other connective tissue disease (3 sources) Arthrodesis status; Translations: [Arthrodesis status] Onset: 10-05-2023 Episodic Other lower respiratory disease (1 source) Wheezing; Translations: [Wheezing] Onset: 01-02-2024 Episodic Otitis media and related conditions (2 sources) Acute otitis media; Translations: [Otitis media, unspecified, unspecified ear] Onset: 01-02-2024 01-02-2024 Episodic Screening and history of mental health and substance abuse codes (1 source) Encounter for screening for depression; Translations: [Screening for depression] Onset: 02-07-2024 Episodic Spondylosis; intervertebral disc disorders; other back problems (20 sources) Pain in thoracic spine; Translations: [Pain in thoracic spine] Onset: 04-29-2020 04-29-2020 Episodic Syncope (3 sources) Near syncope; Translations: [Syncope and collapse] Onset: 06-04-2024 05-17-2024 Episodic Unclassified (6 sources) Normal labor; Translations: [Active labor at term] 10-15-2019 Unclassified (6 sources) Onset: 01-21-2023 01-22-2023 Results Test Name Value Interpretation Reference Range Facility [facility] 09-03-2024 [facility] Office Visit (FAMP[facility]) ANIYAH HODGSON ([id number]) 2000 F Date Time Provider Department 09/03/24 3:20 PM DORITA LARKIN During your visit today, we recorded the following information about you: Pulse Blood pressure Weight 70/minute 112/76 74.8 kg Dorita Larkin APRN.PROFESSOR OF PHYSICAL EDUCATION 09/03/2024 3:17 PM Signed Chief Complaint Patient presents with: Follow Up HPI Aniyah Hodgson is a 24 year old female who presents here today for Above Complaints. Patient presents for medication follow up. Patient zoloft increased on 07/20/2024 and reports she is feeling better. Past medical history, appointments, medications, allergies reviewed. 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 S/p surgery 01/17/2023 at [facility] Thoracic spine pain 04/29/2020 Well adult exam 04/21/2020 Last done: 04/21/2020 Previous Surgical History PAST SURGICAL HISTORY Procedure Laterality Date CYST/MOLE REMOVAL Left 2003 ganglion cyst IUD REMOVAL 08/02/2022 surgically removed PAST SURGICAL HISTORY OF 01/17/2023 T2-L2 posterior spinal arthrodesis and spinal instrumentation, [facility] SKIN BX, 1 LESION 2004 mole removal TYMPANOSTOMY GENERAL ANESTHESIA Bilateral 2008 Family History FAMILY HISTORY Problem Relation Age of Onset Ovarian cancer Maternal Grandmother Ovarian cancer Paternal Grandmother Patient Allergies ALLERGIES Allergen Reactions Augmentin [Amoxicil* Mental Status Change Patient states she was punching things and didn't know where she was Current Medications Current Outpatient Medications on File Prior to Visit Medication Sig sertraline (ZOLOFT) 50 mg tablet Take 1.5 tablets by mouth once daily. tiZANidine (ZANAFLEX) 4 mg tablet Take 1 tablet by mouth at bedtime as needed. busPIRone (BUSPAR) 5 mg tablet Take 1 tablet by mouth daily at bedtime. No current facility-administere d medications on file prior to visit. Social History Social History Tobacco Use Smoking status: Former Current packs/day: 0.00 Average packs/day: 0.5 packs/day for 4.0 years (2.0 ttl pk-yrs) Types: Cigarettes Start date: 12/05/2018 Quit date: 12/05/2022 Years since quittin.7 Smokeless tobacco: Never Tobacco comments: 2 cigs per day Vaping Use Vaping status: Never Used Substance Use Topics Alcohol use: Never Drug use: Never Review of Symptoms REVIEW OF SYSTEMS SEE HPI EXAM: BP 112/76 Pulse 70 Wt 74.8 kg (165 lb) LMP 06/28/2022 (Approximate) BMI 25.60 kg/m? General Appearance: Well appearing, alert, in no acute distress, well-hydrated, well nourished.. Health Maintenance List Hepatitis C Screening Never done HIV Screening Never done Covid-19 Vaccine( season) due on 02/06/2025 Influenza Vaccine(Season Ended) due on 11/05/2024 Depression Screening due on 02/06/2025 Cervical Cancer Screening due on 06/07/2025 DTaP,Tdap,Td Vaccine(10 - Td or Tdap) due on 10/22/2031 Hepatitis B Vaccine Completed HPV Vaccine Completed Data reviewed PHQ-9 11/05/2021 02/07/2024 07/20/2024 09/03/2024 PHQ-9 Scores Little interest or pleasure in doing things: Not at all Not at all More than half the days Not at all Feeling down, depressed, or hopeless: Not at all Not at all Not at all Not at all Trouble falling or staying asleep, or sleeping too much - - More than half the days More than half the days Feeling tired or having little energy - - Several days Not at all Poor appetite or overeating - - Not at all Not at all Feeling bad about yourself - or that you are a failure or have let yourself or your family down - - Not at all Not at all Trouble concentrating on things, such as reading the newspaper or watching television - - Several days Not at all Moving or speaking so slowly that other people could have noticed. Or the opposite - being so fidgety or restless that you have been moving around a lot more than usual - - Not at all Not at all Thoughts that you would be better off , or of hurting yourself in some way - - Not at all Not at all PHQ-9 Score - - 6 2 SONIYA-7 05/17/2024 07/20/2024 09/03/2024 SONIYA-7 All Questions Feeling nervous, anxious, or on edge Nearly Everyday Several days Not at all Not being able to stop or control worrying Several days Not at all Not at all Worrying too much about different things Several days Not at all Several days Trouble relaxing Nearly Everyday Not at all Not at all Being so restless that it is hard to sit still Not at all More than half the days Not at all Becoming easily annoyed or irritable Not at all Several days Several days Feeling afraid, as if something awful might happen Nearly Everyday Several days Not at all SONIYA-7 Score 11 5 2 ASSESSMENT/PLAN: 1. (more content not included)... Normal [facility] Office Visit Reporton 2024 Office Visit Report [facility] [address] [place] [address] OFFICE VISIT Date of Service: 08/16/24 MR#: [id number] Acct: [id number] Patient: ANIYAH HODGSON Rep #: [id number] : 2000 Provider: CASSIE ochoa Age/Sex: 23/F Location: [facility] [place] Status: Signed Intake Vital Signs 05/17/24 14:35 08/16/24 14:52 Height 5 ft 8 in 5 ft 8 in Weight: 165 lb 167 lb 4 oz BMI 25.0 25.4 BP 111/75 Intake Visit Reasons: DEPO Chief Complaint: Depo Provera injection Residential Real Estate Assistant Required: No Is patient in pain?: No Allergies amoxicillin trihydrate (From Augmentin) Allergy (Verified 08/16/24 14:52) Unknown potassium clavulanate (From Augmentin) Allergy (Verified 08/16/24 14:52) Unknown Medications ???Medication ???Instructions ???Recorded ???Confirmed ???Type medroxyprogesterone 150 mg/mL 150 mg IM [id number] #1 mL 09/28/23 08/16/24 Rx intramuscular suspension (Depo-Provera) Post menopausal: No Patient : No Have you fallen in the past year?: No Office Meds Depo-Provera 150 mg/mL intramuscular syringe Performing Provider: CASSIE Santizo NP Performing Location: [facility] Administered by: Thalia Tolbert on 08/16/24 14:59 Dose Route Admin Location Dispensed Lot Number Expiration Date NDC Man ufacturer 150 mg IM left gluteus 1 mL [id number] 03/06/26 92570-036-22 JOSSY Rodriguez ABS Assessment and Plan Assessment and Plan Orders: Orders Depo-Provera Injection - Home Med Today Z30.42 - Encounter for surveillance of injectable contraceptive Clinical Quality Measures Falls Risk Screening/Assistive Devices Have you fallen in the past year?: No 08/16/24 1522 Date Deanna MATTHEWS Cosigner Signature: Date (if applicable) CC: [facility] Visit (JAYCEPWS) ANIYAH HODGSON ([id number]) 2000 F Date Time Provider Department 08/08/24 2:40 PM LENA CORBETT During your visit today, we recorded the following information about you: Temperature Pulse Respiration Blood pressure 98.2 degrees 82/minute 18/minute 106/72 Weight 74.8 kg KrisslogLena montelongo APRN.CNP 08/08/2024 2:58 PM Signed 08/08/2024 Patient presents with: Derm Problem: Had mole removed x7 days ago on right arm. Worried it is infected. Recording using ambient Amiigo software for draft documentation of the visit was discussed with the patient/authorized medical customer service representative; all questions welcomed and answered. Patient/authorized medical customer service representative agreed to proceed SUBJECTIVE: This is a 23 year old that is here today for Above Complaints Mole Removal: - Mole removed from the right antecubital area one week ago. - No pathology results received yet; initial impression was benign. - Denies fevers or chills. - Noted minimal yellow drainage yesterday when removing a Band-Aid; denies significant drainage. - Concerned about healing due to frequent irritation from clothing. 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 tiZANidine (ZANAFLEX) 4 mg tablet Take 1 tablet by mouth at bedtime as needed. busPIRone (BUSPAR) 5 mg tablet Take 1 tablet by mouth daily at bedtime. No current facility-administere d medications for this visit. Medications and allergies reviewed by this provider. SOCIAL HISTORY Social History Tobacco Use Smoking status: Former Current packs/day: 0.00 Average packs/day: 0.5 packs/day for 4.0 years (2.0 ttl pk-yrs) Types: Cigarettes Start date: 12/05/2018 Quit date: 12/05/2022 Years since quittin.6 Smokeless tobacco: Never Tobacco comments: 2 cigs per day Vaping Use Vaping status: Never Used Substance Use Topics Alcohol use: Never Drug use: Never REVIEW OF SYSTEMS OBJECTIVE: BP 106/72 Pulse 82 Temp 36.8 ?C (98.2 ?F) Resp 18 Wt 74.8 kg (164 lb 12.8 oz) LMP 06/28/2022 (Approximate) SpO2 98% BMI 25.57 kg/m? . Vital signs reviewed by this provider. GENERAL: NAD, alert and oriented SKIN: unremarkable, no rash or skin lesions. Healing circular wound with pink edges noted in the right antecubital area. No surrounding erythema, excessive warmth, tenderness or drainage. Area is approximately 1 cm x 0.75 cm Hepatitis C Screening Never done HIV Screening Never done Covid-19 Vaccine( season) due on 02/06/2025 Influenza Vaccine(Season Ended) due on 11/05/2024 Depression Screening due on 02/06/2025 Cervical Cancer Screening due on 06/07/2025 DTaP,Tdap,Td Vaccine(10 - Td or Tdap) due on 10/22/2031 Hepatitis B Vaccine Completed HPV Vaccine Completed 1. History of removal of skin mole (Z98.890) - Mole excision performed one week ago in the cubital area; no signs of infection observed on examination. - Educated patient on normal healing process, including potential for redness and sloughing as part of tissue regeneration. - Advised against using rubbing alcohol to prevent excessive dryness and itching. - Recommended application of a light layer of triple antibiotic cream if desired, though not necessary for current healing status. - Discussed protective measures for upcoming outdoor activities, including use of waterproof bandages and occlusive dressings to prevent exposure to contaminants such as [place] water. - Informed patient about signs of infection to monitor for, including spreading erythema, increased warmth, tenderness, and purulent drainage. - Patient understands and agrees with the treatment plan. Lena Podlogjayda, MEDIA LIBRARIAN.PROFESSOR OF PHYSICAL EDUCATION Prescription instructions reviewed with patient as applicable. Patient advised if symptoms do not improve or if symptoms worsen sooner, to contact their primary care physician. Potential red flag symptoms discussed with the patient. Reviewed appropriate action plan to take if red flag symptoms occur. Patient agreeable to treatment plan. Medical Decision Making: Problems: Low: Acute, uncomplicated illness or injury Risk: Low: Low risk from testing/treatment Medical Decision Making Level: 3 - Low Allergies As of Date: 08/08/2024 Noted Allergy Reaction AUGMENTIN (AMOXICILLIN-POT CLAVUL*04/21/2020 1 - Mental Status Change Comments: Patient states she (more content not included)... Normal [facility]OVon 07-20-2024 CNOV Office Visit (FAMPWS) ANIYAH HODGSON ([id number]) 2000 F Date Time Provider Department 07/20/24 10:20 AM DORITA LARKIN During your visit today, we recorded the following information about you: Pulse Blood pressure Weight 82/minute 113/70 74 kg Dorita Larkin APRN.[facility] 07/20/2024 10:24 AM Addendum Chief Complaint Patient presents with: Follow Up HPI Aniyah Hodgson is a 23 year old female who presents here today for Above Complaints. Patient presents for medication follow up. Patient was seen 05/17 and started on buspar and zoloft. Taking buspar nightly. Reports she does not notice much difference in symptoms since starting medications. Past medical history, appointments, medications, allergies reviewed. 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 S/p surgery 01/17/2023 at [facility] Thoracic spine pain 04/29/2020 Well adult exam 04/21/2020 Last done: 04/21/2020 Previous Surgical History PAST SURGICAL HISTORY Procedure Laterality Date CYST/MOLE REMOVAL Left 2003 ganglion cyst IUD REMOVAL 08/02/2022 surgically removed PAST SURGICAL HISTORY OF 01/17/2023 T2-L2 posterior spinal arthrodesis and spinal instrumentation, [facility] SKIN BX, 1 LESION 2004 mole removal TYMPANOSTOMY GENERAL ANESTHESIA Bilateral 2008 Family History FAMILY HISTORY Problem Relation Age of Onset Ovarian cancer Maternal Grandmother Ovarian cancer Paternal Grandmother Patient Allergies ALLERGIES Allergen Reactions Augmentin [Amoxicil* Mental Status Change Patient states she was punching things and didn't know where she was Current Medications Current Outpatient Medications on File Prior to Visit Medication Sig busPIRone (BUSPAR) 5 mg tablet Take 1 tablet by mouth daily at bedtime. sertraline (ZOLOFT) 50 mg tablet Take 1 tablet by mouth once daily. cyclobenzaprine (FLEXERIL) 10 mg tablet Take 1 tablet by mouth three times a day as needed for muscle spasm. No current facility-administere d medications on file prior to visit. Social History Social History Tobacco Use Smoking status: Former Current packs/day: 0.00 Average packs/day: 0.5 packs/day for 4.0 years (2.0 ttl pk-yrs) Types: Cigarettes Start date: 12/05/2018 Quit date: 12/05/2022 Years since quittin.6 Smokeless tobacco: Never Tobacco comments: 2 cigs per day Vaping Use Vaping status: Never Used Substance Use Topics Alcohol use: Never Drug use: Never Review of Symptoms REVIEW OF SYSTEMS SEE HPI EXAM: BP 113/70 Pulse 82 Wt 74 kg (163 lb 2.3 oz) LMP 06/28/2022 (Approximate) BMI 25.31 kg/m? General Appearance: Well appearing, alert, in no acute distress, well-hydrated, well nourished.. Health Maintenance List Hepatitis C Screening Never done HIV Screening Never done Covid-19 Vaccine( season) due on 02/06/2025 Influenza Vaccine(Season Ended) due on 11/05/2024 Depression Screening due on 02/06/2025 Cervical Cancer Screening due on 06/07/2025 DTaP,Tdap,Td Vaccine(10 - Td or Tdap) due on 10/22/2031 Hepatitis B Vaccine Completed HPV Vaccine Completed Data reviewed SONIYA-7 05/17/2024 07/20/2024 SONIYA-7 All Questions Feeling nervous, anxious, or on edge Nearly Everyday Several days Not being able to stop or control worrying Several days Not at all Worrying too much about different things Several days Not at all Trouble relaxing Nearly Everyday Not at all Being so restless that it is hard to sit still Not at all More than half the days Becoming easily annoyed or irritable Not at all Several days Feeling afraid, as if something awful might happen Nearly Everyday Several days SONIYA-7 Score 11 5 PHQ-9 11/05/2021 02/07/2024 07/20/2024 PHQ-9 Scores Little interest or pleasure in doing things: Not at all Not at all More than half the days Feeling down, depressed, or hopeless: Not at all Not at all Not at all Trouble falling or staying asleep, or sleeping too much - - More than half the days Feeling tired or having little energy - - Several days Poor appetite or overeating - - Not at all Feeling bad about yourself - or that you are a failure or have let yourself or your family down - - Not at all Trouble concentrating on things, such as reading the newspaper or watching television - - Several days Moving or speaking so slowly that other people could have noticed. Or the opposite - being so fidgety or restless that you have been moving around a lot more than usual - - Not at all Thoughts that you would be better off , or of hurting yourself in some way - - Not at all PHQ-9 Score - - 6 ASSESSMENT/PLAN: 1. Kyphosis of thoracic region, unspecified kyphosis type - ICD9: 737.10, ICD10: M40.204 (prim (more content not included)... Normal [facility] T3 SerPl-mCncon 07-20-2024 T3 [Mass/Vol] 107 ng/dL Normal 79-165 [facility] Comment on above: Order Comment: Speci men Type: BLOOD SPECIMENOrdering Facility: [facility] [place] Address: [address] [place] [address] Performed By: #### 3 053-6, 3016-3, 3024-7 ####[facility] LABCLIA [id number] [place] [id number] [place] T4 Free SerPl-mCncon 025 Free T4 [Mass/Vol] 1.4 ng/dL Normal 0.9-1.7 [facility] Comment on above: Order Comment: Speci men Type: BLOOD SPECIMENOrdering Facility: [facility] [place] Address: [address] [place] [address] Performed By: #### 3 053-6, 3016-3, 3024-7 ####[facility] [id number] [place] [id number] [place] TSH SerPl-Adarshcon 07-20-2024 TSH Qn 1.250 m[IU]/L Normal 0.270-4.200 [facility] Comment on above: Order Comment: Speci men Type: BLOOD SPECIMENOrdering Facility: [facility] [place] Address: [address] [place] [address] Result Comment: If t he patient is , TSH reference range varies by gestational period: First Trimester (weeks 9-12): 0.180-2.990 mIU/L Second Trimester: 0.110-3.980 mIU/L Third Trimester: 0.480-4.710 mIU/L Yogi Rodriguez et al. A Practical Approach for the Verifications and Determination of Site- and Trimester-Specific Reference Intervals for Thyroid Function tests in . Thyroid, 2019:29:3:412-420. Brayan Barriga, et al. 2017 Guidelines of the [place] Thy[employer] Association for the Diagnosis and Management of Thyroid Disease during and the . Thyroid, 2017:27:3:315-389. Performed By: #### 3 053-6, 3016-3, 3024-7 ####[facility] LABIA [id number] [address] [address] [place] CNOVon 06-26-2024 CNOV Office Visit (UCWSTR) ANIYAH HODGSON ([id number]) 2000 F Date Time Provider Department 06/26/24 5:00 PM TERENCE MOCTEZUMA WSTR During your visit today, we recorded the following information about you: Temperature Pulse Respiration Blood pressure 97.7 degrees 87/minute 18/minute 128/76 Weight 78.4 kg Terence Moctezuma PA 06/26/2024 4:45 PM Signed [facility] Subjective Aniyah Hodgson is a 23 year old female. Patient presents with: Dental Problem: R side tooth pain x2 days HPI 23-year-old female presents for dental pain x 2 days. Patient states she has had dental pain for the past 2 days. She states pain is worse with eating and chewing. She has been putting on Orajel without much improvement. No drainage from the area. No swelling. No tongue pain or swelling. No difficulty swallowing or breathing. She does have a dentist and has an appointment this week. 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 sertraline (ZOLOFT) 50 mg tablet Take 1 tablet by mouth once daily. cyclobenzaprine (FLEXERIL) 10 mg tablet Take 1 tablet by mouth three times a day as needed for muscle spasm. cephALEXin (KEFLEX) 500 mg capsule Take 1 capsule by mouth four times daily for 5 days. FAMILY HISTORY Problem Relation Age of Onset Ovarian cancer Maternal Grandmother Ovarian cancer Paternal Grandmother Social History Tobacco Use Smoking status: Former Current packs/day: 0.00 Average packs/day: 0.5 packs/day for 4.0 years (2.0 ttl pk-yrs) Types: Cigarettes Start date: 12/05/2018 Quit date: 12/05/2022 Years since quittin.5 Smokeless tobacco: Never Tobacco comments: 2 cigs per day Vaping Use Vaping status: Never Used Substance Use Topics Alcohol use: Never Drug use: Never Review of Systems Constitutional: Negative for chills and fever. HENT: Positive for dental problem. Negative for congestion, ear pain and sore throat. Respiratory: Negative for cough and shortness of breath. Cardiovascular: Negative for chest pain. Gastrointestinal: Negative for diarrhea and vomiting. Objective BP 128/76 Pulse 87 Temp 36.5 ?C (97.7 ?F) Resp 18 Wt 78.4 kg (172 lb 13.5 oz) LMP 06/28/2022 (Approximate) SpO2 98% BMI 26.81 kg/m? Physical Exam Vitals and nursing note reviewed. Constitutional: General: She is not in acute distress. Appearance: Normal appearance. She is not toxic-appearing. HENT: Nose: Nose normal. Mouth/Throat: Mouth: Mucous membranes are moist. Dentition: Dental tenderness and gingival swelling present. No dental abscesses. Comments: Patient has dental tenderness over tooth #7. Mild gingival swelling. No abscess. No tongue or floor mouth swelling. No trismus. Eyes: Conjunctiva/sclera: Conjunctivae normal. Cardiovascular: Rate and Rhythm: Normal rate and regular rhythm. Pulmonary: Effort: Pulmonary effort is normal. Breath sounds: Normal breath sounds. Skin: General: Skin is warm and dry. Neurological: Mental Status: She is alert. {ASSESSMENT/PLAN: 1. Pain, dental - ICD9: 525.9, ICD10: K08.89 - Rx Keflex - Follow-up with dentistry as scheduled - Tylenol/Motrin for pain Diagnosis and treatment plan were discussed and questions were answered to the patient's satisfaction. Pt acknowledged understanding of concepts and follow up plan. Specific signs and symptoms that would indicate the need for higher level of care were discussed in detail warranting prompt ER evaluation. SONIYA Akers History and Record Review External record(s) reviewed: prior outpatient record. Differential Diagnoses - Dental pain/infection is more likely for the following reason(s): suggested by HANDP - [place]'s angina/deep space infection is less likely for the following reason(s): HANDP not suggestive Disposition The patient was discharged. OTC Medications were advised: Tylenol/Motrin Procedures Allergies As of Date: 06/26/2024 Noted Allergy Reaction AUGMENTIN (AMOXICILLIN-POT CLAVUL*04/21/2020 1 - Mental Status Change Comments: Patient states she was punching things and didn't know where sh (more content not included)... Normal [facility] ECHOon 06-04-2024 Echocardiography Echocardiography Report: Transthoracic Echo [facility] Date of service: 06/04/2024 3:24:12 PM LEADER/RESEARCH PSYCHOLOGIST Ordering physician: DORITA LARKIN Indication: Syncope Technologist: Shala Burks [facility] Interpreting physician: Chana Buchanan MD PATIENT: Name: ANIYAH HODGSON : 2000 Age: 23 years Gender: F Primary rhythm: sinus. Height: 171.00 cm BSA: 1.87 m Weight: 74.00 kg BMI: 25.3 kg/m Heart rate 71 bpm Color Doppler was utilized to interrogate the cardiac valves assessed and spectral Doppler was utilized to determine the flow velocities and pressure gradients reported in this exam. Myocardial strain analysis was performed in this exam to aid in the assessment of cardiac function. MEASUREMENTS: Value Indexed Normal Max aortic dimension 2.5 cm Ao < 3.8 Left atrial volume 41 ml (biplane A-L) 22 ml/m Macrina <= 34 LV ID (diastole) 4.8 cm (2D) 2.55 cm/m LV ID (systole) 3.4 cm (2D) 1.81 cm/m IVS, leaflet tips 0.7 cm (2D) Posterior wall thickness 0.8 cm (2D) Left ventricular mass 116 g (2D) 62 g/m Global peak long strain -18.0 % LV stroke volume 59 ml (2D biplane) LV end diastolic volume 102 ml (2D biplane) 54.5 ml/m 29<=EDVi<62 LV end systolic volume 44 ml (2D biplane) 23.2 ml/m Ejection Fraction 57 % (2D biplane) EF > 54 FINDINGS: LEFT VENTRICLE The left ventricle is normal in size. Left ventricular systolic function is normal. Global LV myocardial strain is normal. Normal left ventricular diastolic function. Mitral annular lateral E/e': 4.0. Mitral annular septal E/e': 6.1. Wall Motion: All scored segments are normal. RIGHT VENTRICLE The right ventricle is normal in size. Right ventricular systolic function is normal. RV systolic tissue Doppler velocity is 13.0 cm/s. Tricuspid annular displacement is 1.8 cm. Estimated right atrial pressure is 3 mmHg (although IVC not seen). LEFT ATRIUM The left atrial cavity is normal in size. Pulmonary Veins: The pulmonary venous pattern showed normal systolic flow. RIGHT ATRIUM The right atrial cavity is normal in size. Inferior Vena Cava: The inferior vena cava appears normal measuring 2.0 cm. MITRAL VALVE The mitral valve leaflets are structurally normal. There is no mitral valve regurgitation. The pressure half time is 54 msec. The peak mitral E/A ratio is 1.14. The average mitral E/e' ratio is 5.1. The mitral flow deceleration time is 185 msec. TRICUSPID VALVE The tricuspid valve leaflets are structurally normal. There is no tricuspid valve regurgitation. AORTIC VALVE The aortic valve cusps are structurally normal. There is no aortic valve regurgitation. Tricuspid aortic valve. The peak gradient is 4 mmHg (peak velocity = 101.6 cm/s). PULMONIC VALVE The pulmonic valve cusps are structurally normal. There is no pulmonic valve regurgitation. AORTA The visualized aorta is normal in size. Measurements - Mid ascending aorta 2.5 cm. INTERATRIAL SEPTUM The interatrial septum is mobile. There is no evidence of intracardiac shunting as detected by Doppler. PERICARDIUM There is no pericardial effusion. CONCLUSIONS: - Exam indication: Syncope - The left ventricle is normal in size. Left ventricular systolic function is normal. EF = 57 5% (2D biplane) Normal left ventricular diastolic function. - The right ventricle is normal in size. Right ventricular systolic function is normal. - There are no significant valvular abnormalities. - The patient has not had a prior CC echocardiographic exam for comparison. * * * Final * * * CC [employer] Image : [id number]. [id number] DynamicsSISUID Normal [facility] CNOVon 05-17-2024 CNOV Office Visit (FAMPWS) ANIYAH HODGSON ([id number]) 2000 F Date Time Provider Department 05/17/24 4:20 PM DORITA LARKIN During your visit today, we recorded the following information about you: Pulse Blood pressure Weight 86/minute 114/75 74 kg Dorita Larkin APRN.PROFESSOR OF PHYSICAL EDUCATION 05/17/2024 4:42 PM Signed Chief Complaint No chief complaint on file. HPI Aniyah Hodgson is a 23 year old female who presents here today for Above Complaints.. Patient presents today for anxiety. Patient states she hasn't been sleeping states it might be anxiety related. She was prescribed muscle relaxers in the past that helped her sleep for 2-4 hours. Patient states she is having trouble both falling asleep and staying asleep once she is awake her mind is constantly thinking. Patient states she has been having frequent fatigue, dizziness and lack of motivation since her surgery. Patient denies passing out. Past medical history, appointments, medications, allergies reviewed. 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 S/p surgery 01/17/2023 at [facility] Thoracic spine pain 04/29/2020 Well adult exam 04/21/2020 Last done: 04/21/2020 Previous Surgical History PAST SURGICAL HISTORY Procedure Laterality Date CYST/MOLE REMOVAL Left 2003 ganglion cyst IUD REMOVAL 08/02/2022 surgically removed PAST SURGICAL HISTORY OF 01/17/2023 T2-L2 posterior spinal arthrodesis and spinal instrumentation, [facility] SKIN BX, 1 LESION 2004 mole removal TYMPANOSTOMY GENERAL ANESTHESIA Bilateral 2008 Family History FAMILY HISTORY Problem Relation Age of Onset Ovarian cancer Maternal Grandmother Ovarian cancer Paternal Grandmother Patient Allergies ALLERGIES Allergen Reactions Augmentin [Amoxicil* Mental Status Change Patient states she was punching things and didn't know where she was Current Medications Current Outpatient Medications on File Prior to Visit Medication Sig cyclobenzaprine (FLEXERIL) 10 mg tablet Take 1 tablet by mouth three times a day as needed for muscle spasm. No current facility-administere d medications on file prior to visit. Social History Social History Tobacco Use Smoking status: Former Current packs/day: 0.00 Average packs/day: 0.5 packs/day for 4.0 years (2.0 ttl pk-yrs) Types: Cigarettes Start date: 12/05/2018 Quit date: 12/05/2022 Years since quittin.4 Smokeless tobacco: Never Tobacco comments: 2 cigs per day Vaping Use Vaping status: Never Used Substance Use Topics Alcohol use: Never Drug use: Never Review of Symptoms REVIEW OF SYSTEMS GENERAL: No weight loss, malaise or fevers RESPIRATORY: Negative for cough, hemoptysis, wheezing, COPD, dyspnea or shortness of breath CARDIOVASCULAR: Negative for chest pain, leg swelling, hypertension, CHF or palpitations EXAM: BP 114/75 Pulse 86 Wt 74 kg (163 lb 2.3 oz) LMP 06/28/2022 (Approximate) BMI 25.31 kg/m? General Appearance: Well appearing, alert, in no acute distress, well-hydrated, well nourished.. Lungs: Lungs clear to auscultation. No wheezing, rhonchi, rales.. Heart: RRR without murmur, gallop, or rubs. No ectopy. Health Maintenance List Hepatitis C Screening Never done HIV Screening Never done Influenza Vaccine(1) due on 09/03/2024 Covid-19 Vaccine( season) due on 02/06/2025 Depression Screening due on 02/06/2025 Cervical Cancer Screening due on 06/07/2025 DTaP,Tdap,Td Vaccine(10 - Td or Tdap) due on 10/22/2031 Hepatitis B Vaccine Completed HPV Vaccine Completed SONIYA-7 05/17/2024 SONIYA-7 All Questions Feeling nervous, anxious, or on edge Nearly Everyday Not being able to stop or control worrying Several days Worrying too much about different things Several days Trouble relaxing Nearly Everyday Being so restless that it is hard to sit still Not at all Becoming easily annoyed or irritable Not at all Feeling afraid, as if something awful might happen Nearly Everyday SONIYA-7 Score 11 ASSESSMENT/PLAN: 1. SONIYA (generalized anxiety disorder) - ICD9: 300.02, ICD10: F41.1 (primary diagnosis) - BUSPIRONE 5 MG TABLET - SERTRALINE 50 MG TABLET 2. Dizziness - ICD9: 780.4, ICD10: R42 - TILT TABLE EVALUATION - ECHO - PERFLUTREN LIPID MICROSPHERES 1.1 MG/ML INJECTION IN NS 10 ML - SODIUM CHLORIDE 0.9 % (FLUSH) INJECTION SYRINGE 3. Pre-syncope - ICD9: 780.2, ICD10: R55 - TILT TABLE EVALUATION - ECHO - PERFLUTREN LIPID MICROSPHERES 1.1 MG/ML INJECTION IN NS 10 ML - SODIUM CHLORIDE 0.9 % (FLUSH) INJECTION SYRINGE 4. Fatigue, unspecified type - ICD9: 780.79, ICD10: R53.83 - TILT TABLE EVALUATION - ECHO - PERFLUTREN LIPID MICROSPHERES 1.1 MG/ML INJECTION IN NS 10 ML - SODIUM CHLORIDE 0.9 % (FLUSH) (more content not included)... Normal [facility] Office Visit Reporton 2024 Office Visit Report [facility] [address] [place] [place] [address] OFFICE VISIT Date of Service: 05/17/24 MR#: [id number] Acct: [id number] Patient: ANIYAH HODGSON Rep #: [id number] : 2000 Provider: IAN Castañeda ams Age/Sex: 23/F Location: [facility] [place] Status: Signed Intake Vital Signs 02/16/24 15:02 05/17/24 14:35 Height 5 ft 8 in 5 ft 8 in Weight: 164 lb 4 oz 165 lb BMI 25.0 25.0 BP 111/75 Intake Visit Reasons: DEPO Chief Complaint: Depo Provera injection Allergies amoxicillin trihydrate (From Augmentin) Allergy (Verified 05/17/24 14:36) Unknown potassium clavulanate (From Augmentin) Allergy (Verified 05/17/24 14:36) Unknown Medications ???Medication ???Instructions ???Recorded ???Confirmed ???Type medroxyprogesterone 150 mg/mL 150 mg IM [id number] #1 mL 09/28/23 05/17/24 Rx intramuscular suspension (Depo-Provera) Office Meds Depo-Provera 150 mg/mL intramuscular syringe Performing Provider: Dalila Prasad CNM Performing Location: [facility] Administered by: Melissa Veras on 05/17/24 14:36 Dose Route Admin Location Dispensed Lot Number Expiration Date NDC Man ufacturer 150 mg IM right glute 1 mL [id number] 07/04/26 69892-050-91 JOSSY MORALES Assessment and Plan Assessment and Plan Orders: Orders Depo-Provera Injection - Home Med 05/17/24 Z30.9 - Encounter for contraceptive management, unspecified 05/21/24 1740 Date Dalila Prasad CNM Cosigner Signature: Date (if applicable) CC: Normal [facility] CT SPINE LUMBAR WITHOUT CONT [facility] 04-05-2024 CT SPINE LUMBAR WITHOUT CONTRAST EXAM: CT SPINE THORACIC WITHOUT CONTRAST, CT SPINE LUMBAR WITHOUT CONTRAST, 04/04/2024 10:56 AM (accession [id number]), 04/04/2024 10:57 AM (accession [id number]) COMPARISON: Thoracic MRI 01/24/2024. CLINICAL INDICATIONS: 23 years Female S/p T2-L2 fusion with fixation 01/17/23- For Scheurmans kyphosis. Patient complains of painful hardaware RELEVANT CLINICAL HISTORY: M42.00:Scheuermann's kyphosis Z98.1:S/P fusion of thoracic spine TECHNIQUE: A series of transaxial multislice computerized tomographic thin section source images of the thoracic spine and lumbar spine are obtained with helical technique without intravenous contrast. Reformats: Axial, sagittal, coronal. FINDINGS: Again noted are postoperative changes following multilevel posterior thoracolumbar surgical fixation with pedicle screws and rods from T2-L2 levels. The surgical construct is intact and in good position with no evidence of loosening or hardware fracture or failure. There is no evidence of osseous fracture or acute vertebral deformity. There is evidence of good posterior osseous fusion. Posterior surgical incisions appear good. There is no evidence of fluid collection, wound breakdown, or hardware exposure by CT. There is a very slight degree of scoliosis in the coronal plane which is stable compared to previous x-rays. Paravertebral soft tissues are unremarkable. Is thoracic and lumbar discs appear within normal limits otherwise. No significant spinal canal abnormality identified. IMPRESSION: Surgical changes following posterior thoracolumbar fixation from T2-L2, with overall good postoperative appearance. Normal [facility] CT SPINE THORACIC WITHOUT CO NTRASTon 04-05-2024 CT SPINE THORACIC WITHOUT CONTRAST EXAM: CT SPINE THORACIC WITHOUT CONTRAST, CT SPINE LUMBAR WITHOUT CONTRAST, 04/04/2024 10:56 AM (accession [id number]), 04/04/2024 10:57 AM (accession [id number]) COMPARISON: Thoracic MRI 01/24/2024. CLINICAL INDICATIONS: 23 years Female S/p T2-L2 fusion with fixation 01/17/23- For Scheurmans kyphosis. Patient complains of painful hardaware RELEVANT CLINICAL HISTORY: M42.00:Scheuermann's kyphosis Z98.1:S/P fusion of thoracic spine TECHNIQUE: A series of transaxial multislice computerized tomographic thin section source images of the thoracic spine and lumbar spine are obtained with helical technique without intravenous contrast. Reformats: Axial, sagittal, coronal. FINDINGS: Again noted are postoperative changes following multilevel posterior thoracolumbar surgical fixation with pedicle screws and rods from T2-L2 levels. The surgical construct is intact and in good position with no evidence of loosening or hardware fracture or failure. There is no evidence of osseous fracture or acute vertebral deformity. There is evidence of good posterior osseous fusion. Posterior surgical incisions appear good. There is no evidence of fluid collection, wound breakdown, or hardware exposure by CT. There is a very slight degree of scoliosis in the coronal plane which is stable compared to previous x-rays. Paravertebral soft tissues are unremarkable. Is thoracic and lumbar discs appear within normal limits otherwise. No significant spinal canal abnormality identified. IMPRESSION: Surgical changes following posterior thoracolumbar fixation from T2-L2, with overall good postoperative appearance. Normal [facility] Office Visit Reporton 2023 Office Visit Report [place] [address] OFFICE VISIT Date of Service: 02/16/24 MR#: [id number] Acct: [id number] Patient: ANIYAH HODGSON Rep #: [id number] : 2000 Provider: CASSIE Storey Age/Sex: 23/F Location: [facility] [place] Status: Signed Intake Vital Signs 11/17/23 15:08 02/16/24 15:02 Height 5 ft 8 in 5 ft 8 in Weight: 161 lb 164 lb 4 oz BMI 24.5 25.0 BP 105/71 Intake Visit Reasons: DEPO Chief Complaint: Depo Provera injection Residential Real Estate Assistant Required: No Is patient in pain?: No Allergies amoxicillin trihydrate (From Augmentin) Allergy (Verified 02/16/24 15:02) Unknown potassium clavulanate (From Augmentin) Allergy (Verified 02/16/24 15:02) Unknown Medications ???Medication ???Instructions ???Recorded ???Confirmed ???Type medroxyprogesterone 150 mg/mL 150 mg IM [id number] #1 mL 09/28/23 02/16/24 Rx intramuscular suspension (Depo-Provera) Post menopausal: No Patient : No Have you fallen in the past year?: No Office Meds Depo-Provera 150 mg/mL intramuscular syringe Performing Provider: CASSIE Baez Performing Location: [facility] Administered by: Thalia Tolbert on 02/16/24 15:04 Dose Route Admin Location Dispensed Lot Number Expiration Date [facility] Man ufacturer 150 mg IM left gluteus 1 mL [id number] 07/04/26 46265-884-94 [facility] Assessment and Plan Assessment and Plan (1) Contraception management: Status: Acute Qualifiers: Contraceptive encounter type: surveillance Contraceptive type: injectable Qualified Code(s): Z30.42 - Encounter for surveillance of injectable contraceptive Comment: depo provera-since 2022. Orders: Orders Depo-Provera Injection - Home Med 02/16/24 Z30.42 - Encounter for surveillance of injectable contraceptive Clinical Quality Measures Falls Risk Screening/Assistive Devices Have you fallen in the past year?: No 02/20/24 1218 Date Alejandrina Landa Signature: Date (if applicable) CC: Normal [facility]20[facility] ANIYAH HODGSON ([id number]) 2000 F Date Time Provider Department 02/09/24 DORITA LARKIN [facility] During your visit today, we recorded the following information about you: Dorita Larkin APRN.[facility] 02/09/2024 12:24 PM Signed Please let patient know their labs are normal. John Perales MA 02/09/2024 12:40 PM Signed Left message for patient to return call to office CHELSEA Blackburn Krystle, RN 02/09/2024 1:01 PM Signed Patient calls and notified of results.Patient verbalizes understanding. Sabrina Shrestha RN Allergies As of Date: 02/09/2024 Noted Allergy Reaction AUGMENTIN (AMOXICILLIN-POT CLAVUL*04/21/2020 1 - Mental Status Change Comments: Patient states she was punching things and didn't know where she was Date Reviewed: 02/07/2024 Reviewed by: John Perales MA - Fully Assessed Reason for Visit: Results [95] Prescriptions as of 02/09/2024 - cyclobenzaprine (FLEXERIL) 10 mg tablet Take 1 tablet by mouth three times a day as needed for muscle spasm. Problem List As Of Date 02/09/2024 Noted Resolved Well adult exam [Z00.00] 04/21/2020 SONIYA (generalized anxiety disorder) [F41.1] 04/21/2020 Thoracic spine pain [M54.6] 04/29/2020 Kyphosis of thoracic region [M40.204] 03/24/2022 Scheuermann's kyphosis of thoracic spine [M42.0*01/18/2023 Encounter Status:Closed by SABRINA SHRESTHA on 02/09/24 Normal [facility] CBC W Auto Differential pane l (Bld)on 02-07-2024 Basophils (Bld) [#/Vol] 0.03 10*3/uL Normal <0.11 [facility] Comment on above: Order Comment: Speci men Type: BLOOD SPECIMENOrdering Facility: [facility] Address: [address] [place] [address] Performed By: #### 5 7021-8 ####[facility] LABCLIA [id number] [place] [address] [place] Basophils/100 WBC (Bld) 0.5 % Normal [facility] Comment on above: Order Comment: Speci men Type: BLOOD SPECIMENOrdering Facility: [facility] Address: [address] [place] [address] Performed By: #### 5 7021-8 ####[facility] LABCLIA [id number] [place] [address] [place] Differential cell count method Nom (Bld) Auto Normal [facility] Comment on above: Order Comment: Speci men Type: BLOOD SPECIMENOrdering Facility: [facility] Address: [address] [place] [address] Performed By: #### 5 7021-8 ####[facility] LABCLIA [id number] [place] [address] [place] Eosinophils (Bld) [#/Vol] 0.04 10*3/uL Normal <0.46 [facility] Comment on above: Order Comment: Speci men Type: BLOOD SPECIMENOrdering Facility: [facility] Address: [address] [place] [address] Performed By: #### 5 7021-8 ####[facility] LABCLIA [id number] [place] [address] [place] Eosinophils/100 WBC (Bld) 0.7 % Normal [facility] Comment on above: Order Comment: Speci men Type: BLOOD SPECIMENOrdering Facility: [facility] Address: [address] [place] [address] Performed By: #### 5 7021-8 ####[facility] LABCLIA [id number] [place] [address] [place] Erythrocyte distribution width (RBC) [Ratio] 12.4 % Normal 11.5-15.0 [facility] Comment on above: Order Comment: Speci men Type: BLOOD SPECIMENOrdering Facility: [facility] Address: [address] [place] [address] Performed By: #### 5 7021-8 ####[facility] LABIA [id number] [place] [address] [place] Hematocrit (Bld) [Volume fraction] 43.2 % Normal 36.0-46.0 [facility] Comment on above: Order Comment: Speci men Type: BLOOD SPECIMENOrdering Facility: [facility] Address: [address] [place] [address] Performed By: #### 5 7021-8 ####[facility] LABCLIA [id number] [place] [address] [place] Hemoglobin (Bld) [Mass/Vol] 13.6 g/dL Normal 11.5-15.5 [facility] Comment on above: Order Comment: Speci men Type: BLOOD SPECIMENOrdering Facility: [facility] Address: [address] [place] [address] Performed By: #### 5 7021-8 ####[facility] LABCLIA [id number] [place] [address] [place] Immature granulocytes (Bld) [#/Vol] 10*3/uL Normal <0.10 [facility] Comment on above: Order Comment: Speci men Type: BLOOD SPECIMENOrdering Facility: [facility] Address: [address] [place] [address] Performed By: #### 5 7021-8 ####[facility] LABCLIA [id number] [place] [address] [place] Immature granulocytes/100 WBC (Bld) 0.2 % Normal [facility] Comment on above: Order Comment: Speci men Type: BLOOD SPECIMENOrdering Facility: [facility] Address: [address] [place] [address] Performed By: #### 5 7021-8 ####[facility] LABCLIA [id number] [place] [address] [place] Lymphocytes (Bld) [#/Vol] 1.77 10*3/uL Normal 1.00-4.0 0 [facility] Comment on above: Order Comment: Speci men Type: BLOOD SPECIMENOrdering Facility: [facility] Address: [address] [place] [address] Performed By: #### 5 7021-8 ####[facility] LABCLIA [id number] [place] [address] [place] Lymphocytes/100 WBC (Bld) 31.0 % Normal [facility] Comment on above: Order Comment: Speci men Type: BLOOD SPECIMENOrdering Facility: [facility] Address: [address] [place] [address] Performed By: #### 5 7021-8 ####[facility] LABCLIA [id number] [place] [address] [place] MCH (RBC) [Entitic mass] 29.6 pg Normal 26.0-34.0 [facility] Comment on above: Order Comment: Speci men Type: BLOOD SPECIMENOrdering Facility: [facility] Address: [address] [place] [address] Performed By: #### 5 7021-8 ####[facility] LABCLIA [id number] [place] [address] [place] MCHC (RBC) [Mass/Vol] 31.5 g/dL Normal 30.5-36.0 [facility] Comment on above: Order Comment: Speci men Type: BLOOD SPECIMENOrdering Facility: [facility] Address: [address] [place] [address] Performed By: #### 5 7021-8 ####[facility] LABCLIA [id number] [place] [address] [place] MCV (RBC) [Entitic vol] 93.9 fL Normal 80.0-100.0 [facility] Comment on above: Order Comment: Speci men Type: BLOOD SPECIMENOrdering Facility: [facility] Address: [address] [place] [address] Performed By: #### 5 7021-8 ####[facility] LABCLIA [id number] [place] [address] [place] Monocytes (Bld) [#/Vol] 0.42 10*3/uL Normal <0.87 [facility] Comment on above: Order Comment: Speci men Type: BLOOD SPECIMENOrdering Facility: [facility] Address: [address] [place] [address] Performed By: #### 5 7021-8 ####[facility] LABCLIA [id number] [place] [address] [place] Monocytes/100 WBC (Bld) 7.4 % Normal [facility] Comment on above: Order Comment: Speci men Type: BLOOD SPECIMENOrdering Facility: [facility] Address: [address] [place] [address] Performed By: #### 5 7021-8 ####[facility] LABCLIA [id number] [place] [address] [place] Neutrophils (Bld) [#/Vol] 3.44 10*3/uL Normal 1.45-7.5 0 [facility] Comment on above: Order Comment: Speci men Type: BLOOD SPECIMENOrdering Facility: [facility] Address: [address] [place] [address] Performed By: #### 5 7021-8 ####[facility] LABCLIA [id number] [place] [address] [place] Neutrophils/100 WBC (Bld) 60.2 % Normal [facility] Comment on above: Order Comment: Speci men Type: BLOOD SPECIMENOrdering Facility: [facility] Address: [address] [place] [address] Performed By: #### 5 7021-8 ####[facility] LABCLIA [id number] [place] [address] [place] Nucleated RBC (Bld) [#/Vol] 10*3/uL Normal <0.01 [facility] Comment on above: Order Comment: Speci men Type: BLOOD SPECIMENOrdering Facility: [facility] Address: [address] [place] [address] Performed By: #### 5 7021-8 ####[facility] LABCLIA [id number] [place] [address] [place] Nucleated RBC/100 WBC (Bld) [Ratio] 0.0 /100 WBC Normal [facility] Comment on above: Order Comment: Speci men Type: BLOOD SPECIMENOrdering Facility: [facility] Address: [address] [place] [address] Performed By: #### 5 7021-8 ####[facility] LABCLIA [id number] [place] [address] [place] Platelet mean volume (Bld) [Entitic vol] 11.6 fL Normal 9.0-12.7 [facility] Comment on above: Order Comment: Speci men Type: BLOOD SPECIMENOrdering Facility: [facility] Address: [address] [place] [address] Performed By: #### 5 7021-8 ####[facility] LABIA [id number] [place] [address] [place] Platelets (Bld) [#/Vol] 199 10*3/uL Normal 150-400 [facility] Comment on above: Order Comment: Speci men Type: BLOOD SPECIMENOrdering Facility: [facility] Address: [address] [place] [address] Performed By: #### 5 7021-8 ####[facility] LABIA [id number] [place] [address] [place] RBC (Bld) [#/Vol] 4.60 10*6/uL Normal 3.90-5.20 [facility] Comment on above: Order Comment: Speci men Type: BLOOD SPECIMENOrdering Facility: [facility] Address: [address] [place] [address] Performed By: #### 5 7021-8 ####[facility] LABIA [id number] [place] [address] [place] WBC (Bld) [#/Vol] 5.71 10*3/uL Normal 3.70-11.00 [facility] Comment on above: Order Comment: Speci men Type: BLOOD SPECIMENOrdering Facility: [facility] Address: [address] [place] [address] Performed By: #### 5 7021-8 ####[facility] [id number] [place] [address] [place] CNOVon 02-07-2024 [facility] Office Visit (FAMPWS) ANIYAH HODGSON ([id number]) 2000 F Date Time Provider Department 02/07/24 3:20 PM DORITA LARKIN During your visit today, we recorded the following information about you: Pulse Respiration Blood pressure Weight 82/minute 14/minute 111/71 77.1 kg Dorita Larkin APRN.PROFESSOR OF PHYSICAL EDUCATION 02/07/2024 3:40 PM Signed Chief Complaint Patient presents with: Physical HPI Aniyah Hodgson is a 23 year old female who presents here today for Above Complaints.. Patient presents for annual physical. Reports she does not see pain management any longer. Patient reports spine doctor wants to due a follow up surgery to change out her hardware. Patient requesting refill of muscle relaxer for low back pain. Past medical history, appointments, medications, allergies reviewed. 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 S/p surgery 01/17/2023 at [facility] Thoracic spine pain 04/29/2020 Well adult exam 04/21/2020 Last done: 04/21/2020 Previous Surgical History PAST SURGICAL HISTORY Procedure Laterality Date CYST/MOLE REMOVAL Left 2003 ganglion cyst IUD REMOVAL 08/02/2022 surgically removed PAST SURGICAL HISTORY OF 01/17/2023 T2-L2 posterior spinal arthrodesis and spinal instrumentation, [facility] SK[facility] BX, 1 LESION 2004 mole removal TYMPANOSTOMY GENERAL ANESTHESIA Bilateral 2008 Family History FAMILY HISTORY Problem Relation Age of Onset Ovarian cancer Maternal Grandmother Ovarian cancer Paternal Grandmother Patient Allergies ALLERGIES Allergen Reactions Augmentin [Amoxicil* Mental Status Change Patient states she was punching things and didn't know where she was Current Medications Current Outpatient Medications on File Prior to Visit Medication Sig traZODone (DESYREL) 50 mg tablet Take 1 tablet by mouth daily at bedtime. oxycodone HCl (OXYCODONE ORAL) Take 1 tablet by mouth three times a day. Pt i taking roughly 4 to 5 times a day (Patient not taking: Reported on 02/17/2023) cyclobenzaprine (FLEXERIL) 5 mg tablet Take 5 mg by mouth three times a day. (Patient not taking: Reported on 02/17/2023) enoxaparin (LOVENOX) 40 mg/0.4 mL Inject 1 mg/kg/dose subcutaneously once daily. (Patient not taking: Reported on 02/17/2023) diphenhydrAMINE-Acet aminophen (TYLENOL PM EXTRA STRENGTH) 25-500 mg tab Take 2 tablets by mouth four times daily. (Patient not taking: Reported on 02/17/2023) docusate sodium (COLACE) 100 mg capsule Take 100 mg by mouth two times a day. (Patient not taking: Reported on 02/17/2023) polyethylene glycol 3350 (MIRALAX) 17 gram/dose powder Take 17 g by mouth one time only. Dissolve dose in 4 - 8 ounces of liquid and take as directed. sennosides (SENOKOT ORAL) Take 2 capsules by mouth. gabapentin (NEURONTIN) 300 mg capsule Take 300 mg by mouth three times a day. (Patient not taking: Reported on 02/17/2023) meloxicam (MOBIC) 7.5 mg tablet Take 1 tablet by mouth two times a day. (Patient not taking: Reported on 02/03/2023) cyanocobalamin (VITAMIN B-12) 1,000 mcg tab Take 1 tablet by mouth once daily. tiZANidine (ZANAFLEX) 4 mg tablet Take 4 mg by mouth daily at bedtime. (Patient not taking: Reported on 02/03/2023) hydrocodone/acetamin ophen (VICODIN ORAL) Take 1 tablet by mouth as needed. (Patient not taking: Reported on 02/03/2023) No current facility-administere d medications on file prior to visit. Social History Social History Tobacco Use Smoking status: Former Current packs/day: 0.00 Average packs/day: 0.5 packs/day for 4.0 years (2.0 ttl pk-yrs) Types: Cigarettes Start date: 12/05/2018 Quit date: 12/05/2022 Years since quittin.1 Smokeless tobacco: Never Tobacco comments: 2 cigs per day Vaping Use Vaping status: Never Used Substance Use Topics Alcohol use: Never Drug use: Never Review of Symptoms REVIEW OF SYSTEMS SEE HPI EXAM: BP 111/71 Pulse 82 Resp 14 Wt 77.1 kg (170 lb) LMP 06/28/2022 (Approximate) BMI 26.37 kg/m? General Appearance: Well appearing, alert, in no acute distress, well-hydrated, well nourished.. Skin: Skin color, texture, turgor normal, no suspicious rashes or lesions. Lungs: Lungs clear to auscultation. No wheezing, rhonchi, rales.. Heart: RRR without murmur, gallop, or rubs. No ectopy. Abdomen: Normal abdominal exam, Abdomen soft, non-tender. Bowel sounds normal. No masses, organomegaly. Musculoskeletal: No joint swelling, deformity, or tenderness. Peripheral Pulses: Normal. Neurologic: Gait normal. Reflexes normal and symmetric. Sensation grossly intact.. Health Maintenance List Depression Screening Never done Hepatitis C Screening Never done HIV Screening Never done Influenza Vaccine(1) Never done Covid-19 V (more content not included)... Normal [facility] Comprehensive metabolic 2000 panelon 02-07-2024 Albumin [Mass/Vol] 4.8 g/dL Normal 3.9-4.9 [facility] Comment on above: Order Comment: Speci men Type: BLOOD SPECIMENOrdering Facility: [facility] [place] Address: [address] [place] [address] Performed By: #### 2 4322-10, 2131-11 ####[facility] LABCLIA [id number] [place] [address] [place] ALP [Catalytic activity/Vol] 70 U/L Normal 34-123 [facility] Comment on above: Order Comment: Speci men Type: BLOOD SPECIMENOrdering Facility: [facility] [place] Address: [address] [place] [address] Performed By: #### 2 4322-10, 2131-11 ####[facility] LABCLIA [id number] [place] [address] [place] ALT [Catalytic activity/Vol] 12 U/L Normal 7-38 [facility] Comment on above: Order Comment: Speci men Type: BLOOD SPECIMENOrdering Facility: [facility] [place] Address: [address] [place] [place] [id number] Performed By: #### 2 4322-10, 2131-11 ####[facility] LABCLIA [id number] [place] [id number] [place] Anion gap [Moles/Vol] 10 mmol/L Normal 8-15 [facility] Comment on above: Order Comment: Speci men Type: BLOOD SPECIMENOrdering Facility: [facility] [place] Address: [address] [place], [place] [id number] Performed By: #### 2 4322-10, 2131-11 ####[facility] LABCLIA [id number] [place] [address] [place] AST [Catalytic activity/Vol] 14 U/L Normal 13-35 [facility] Comment on above: Order Comment: Speci men Type: BLOOD SPECIMENOrdering Facility: [facility] [place] Address: [address] [place], [place] [id number] Performed By: #### 2 4322-10, 2131-11 ####[facility] LABCLIA [id number] [place] [address] [place] Bilirubin [Mass/Vol] 0.7 mg/dL Normal 0.2-1.3 [facility] Comment on above: Order Comment: Speci men Type: BLOOD SPECIMENOrdering Facility: [facility] [place] Address: [address] [place], [place] [id number] Performed By: #### 2 4322-10, 2131-11 ####[facility] LABCLIA [id number] [place] [id number] [place] Calcium [Mass/Vol] 9.5 mg/dL Normal 8.5-10.2 [facility] Comment on above: Order Comment: Speci men Type: BLOOD SPECIMENOrdering Facility: [facility] [place] Address: [address] [place], [place] [phone] Performed By: #### 2 4322-10, 2131-11 ####[facility] LABCLIA [id number] [place] [id number] [place] Chloride [Moles/Vol] 106 mmol/L Normal 98-107 [facility] Comment on above: Order Comment: Speci men Type: BLOOD SPECIMENOrdering Facility: [facility] [place] Address: [address] [place] [address] Performed By: #### 2 4323-8, 2131-11 ####[facility] LABCLIA [id number] [place] [address] [place] CO2 [Moles/Vol] 26 mmol/L Normal 22-30 [facility] Comment on above: Order Comment: Speci men Type: BLOOD SPECIMENOrdering Facility: [facility] [place] Address: [address] [place] [address] Performed By: #### 2 4323-8, 2131-11 ####[facility] LABCLIA [id number] [place] [address] [place] Creatinine [Mass/Vol] 0.69 mg/dL Normal 0.58-0.96 [facility] Comment on above: Order Comment: Speci men Type: BLOOD SPECIMENOrdering Facility: [facility] [place] Address: [address] [place] [address] Performed By: #### 2 4323-8, 2131-11 ####[facility] LABIA [id number] [place] [address] [place] Creatinine and Glomerular filtration rate.predicted panel (S/P/Bld) 124 mL/min/1.73m??? Normal >=60 [facility] Comment on above: Order Comment: Speci men Type: BLOOD SPECIMENOrdering Facility: [facility] [place] Address: [address] [place] [address] Result Comment: Sarahy mated Glomerular Filtration Rate (eGFR) is calculated using the 2020 CKD-EPI creatinine equation. This equation utilizes serum creatinine, sex, and age as parameters. The creatinine assay has traceable calibration to isotope dilution-mass spectrometry. Refer to KDIGO guidelines for clinical interpretation. In patients with unstable renal function, e.g. those with acute kidney injury, the eGFR may not accurately reflect actual GFR. Performed By: #### 2 4322-10, 2131-11 ####[facility] LABCLIA [id number] [address] [address] [place] Glucose [Mass/Vol] 75 mg/dL Normal 74-99 [facility] Comment on above: Order Comment: Chelsie steele Type: BLOOD SPECIMENOrdering Facility: [facility] [place] Address: [address] [place] [address] Result Comment: The [place] [employer] (ADA) provides guidance for cutoff values for fasting glucose and random glucose. The ADA defines fasting as no caloric intake for at least 8 hours. Fasting plasma glucose results between 100 to 125 mg/dL indicate increased risk for diabetes (prediabetes). Fasting plasma glucose results greater than or equal to 126 mg/dL meet the criteria for diagnosis of diabetes. In the absence of unequivocal hyperglycemia, results should be confirmed by repeat testing. In a patient with classic symptoms of hyperglycemia or hyperglycemic crisis, random plasma glucose results greater than or equal to 200 mg/dL meet the criteria for diagnosis of diabetes. Reference: Standards of Medical Care in Diabetes 2016, [place] [employer]. Diabetes Care. 2016.39(Suppl 1). Performed By: #### 2 4322-10, 2131-11 ####[facility] LABCLIA [id number] [facility] [place] [id number] [place] Potassium [Moles/Vol] 4.0 mmol/L Normal 3.7-5.1 [facility] Comment on above: Order Comment: Chelsie steele Type: BLOOD SPECIMENOrdering Facility: [facility] [place] Address: [address] [place] [address] Performed By: #### 2 4322-10, 2131-11 ####[facility] LABCLIA [id number] [facility] [address] [address] [place] Protein [Mass/Vol] 6.6 g/dL Normal 6.3-8.0 [facility] Comment on above: Order Comment: Speci men Type: BLOOD SPECIMENOrdering Facility: [facility] [place] Address: [address] [place], [place] [phone] Performed By: #### 2 432-8, 2131-11 ####[facility] LABCLIA [id number] [address] [address] [place] Sodium [Moles/Vol] 142 mmol/L Normal 136-144 [facility] Comment on above: Order Comment: Speci men Type: BLOOD SPECIMENOrdering Facility: [facility] [place] Address: [address] [place] [address] Performed By: #### 2 4328, 2131-11 ####[facility] LABCLIA [id number] [place] [address] [place] Urea nitrogen [Mass/Vol] 7 mg/dL Normal 7-21 [facility] Comment on above: Order Comment: Speci men Type: BLOOD SPECIMENOrdering Facility: [facility] [place] Address: [address] [place] [address] Performed By: #### 2 43238, 2131-11 ####[facility] LABCLIA [id number] [place] [address] [place] Vit B12 [facility] 12-03-2 024 Cobalamin (Vitamin B12) [Mass/Vol] 295 pg/mL Normal 232-1245 [facility] Comment on above: Order Comment: Speci men Type: BLOOD SPECIMENOrdering Facility: [facility] [place] Address: [address] [place], [place] [phone] Performed By: #### 2 4323-8, 2131-11 ####[facility] LABCLIA [id number] [place] [address] [place] MRI SPINE THORACIC WITH AND WITHOUT CONTRASTon 01-25-2024 MRI SPINE THORACIC WITH AND WITHOUT CONTRAST EXAM: MRI SPINE THORACIC WITH AND WITHOUT CONTRAST, 01/24/2024 19:10 PM COMPARISON: Thoracic spine radiographs 01/24/2024, MRI thoracic spine outside exam 07/23/2020.. CLINICAL INDICATIONS: 23 years Female s/p T2-L2 posterior fixation fusion with multiple osteotomies completed 01/17/2023 for Scheuermann's kyphosis with persistent myofascial pain; RELEVANT CLINICAL HISTORY: Z98.1:S/P fusion of thoracic spine M42.00:Scheuermann's kyphosis G25.89:Scapular dyskinesis T85.848S:Pain from implanted hardware, sequela (METAL SUPPRESSION MRI) attention: Fascial planes with high suspicion of dehiscence ( [facility]); TECHNIQUE: A series of sagittal and axial multisequence images of the thoracic spine were obtained both before and after intravenous administration of gadolinium-based contrast using standard protocol. Study was performed at 1.5 Paige. CONTRAST: Gadopiclenol SOLN 1-25 mL; Route of Administration: Intravenous; Dose: 7.2 mL. FINDINGS: Compared with previous outside MRI exam of 07/23/2020, patient is status post extensive instrumented posterior fusion with bilateral pedicles and rods extending from the T2 level inferiorly below the [id number], which based on other radiographs extends down to the L2 level. Alignment is normal. Vertebral bodies are preserved in height. No signal is unremarkable. Paraspinal soft tissues are within normal limits. Thoracic intervertebral discs are variable disc space narrowing. No evidence of disc herniation. Evaluation of thoracic spinal canal is suboptimal due to susceptibility artifacts from surgical hardware. No evidence of spinal canal stenosis. Evaluation of thoracic spinal cord is limited due to artifacts from surgical hardware. No obvious abnormality is identified. IMPRESSION: Status post extensive posterior fixation of the thoracic spine. [facility] XR Cervical spine 4 Viewson 01-24-2024 IMPRESSION: No acute osseous abnormality No spinal instability with flexion or extension OLOGY EXAM: XR SPINE CERVICAL 4-5 VIEWS, 01/24/2024 17:33 PM COMPARISON: Scoliosis series August 02, 2023 CLINICAL INDICATIONS: pain RELEVANT CLINICAL HISTORY: M42.00:Scheuermann's kyphosis M54.2:Neck pain AP,LAT,FLEX,EXT 4 VIEWS, STANDING XRAYS; FINDINGS: 4 images obtained. There are 7 cervical vertebral bodies identified. No compression deformities. Disc spaces are preserved. Facets are aligned. No spondylolisthesis. No spinal instability with flexion or extension Partial visualization of a thoracic spine fusion. RADIOLOGY Adelita Gatica DO - 01/24/2024 EXAM: XR SPINE CERVICAL 4-5 VIEWS, 01/24/2024 17:33 PM COMPARISON: Scoliosis series August 02, 2023 CLINICAL INDICATIONS: pain RELEVANT CLINICAL HISTORY: M42.00:Scheuermann's kyphosis M54.2:Neck pain AP,LAT,FLEX,EXT 4 VIEWS, STANDING XRAYS; FINDINGS: 4 images obtained. There are 7 cervical vertebral bodies identified. No compression deformities. Disc spaces are preserved. Facets are aligned. No spondylolisthesis. No spinal instability with flexion or extension Partial visualization of a thoracic spine fusion. IMPRESSION IMPRESSION: No acute osseous abnormality No spinal instability with flexion or extension [facility] Radiology Study observation (narrative) [facility] XR Cervical spine 4 ViewsOrd ered By: Adelita Gatica on 01-24-2024 [facility] Work Phone: XR SPINE CERVICAL 4-5 VIEWSo n 01-24-2024 XR SPINE CERVICAL 4-5 VIEWS EXAM: XR SPINE CERVICAL 4-5 VIEWS, 01/24/2024 17:33 PM COMPARISON: Scoliosis series August 02, 2023 CLINICAL INDICATIONS: pain RELEVANT CLINICAL HISTORY: M42.00:Scheuermann's kyphosis M54.2:Neck pain AP,LAT,FLEX,EXT 4 VIEWS, STANDING XRAYS; FINDINGS: 4 images obtained. There are 7 cervical vertebral bodies identified. No compression deformities. Disc spaces are preserved. Facets are aligned. No spondylolisthesis. No spinal instability with flexion or extension Partial visualization of a thoracic spine fusion. IMPRESSION: No acute osseous abnormality No spinal instability with flexion or extension [facility] XR SPINE LUMBAR 2-3 VIEWSon 01-24-2024 XR SPINE LUMBAR 2-3 VIEWS EXAM: XR SPINE LUMBAR 2-3 VIEWS, 01/24/2024 17:32 PM COMPARISON: Scoliosis series August 02, 2023 and thoracic spine radiographs performed the same day CLINICAL INDICATIONS: POSTOP RELEVANT CLINICAL HISTORY: Z98.1:S/P fusion of thoracic spine M42.00:Scheuermann's kyphosis Z98.1:S/P lumbar spinal fusion FINDINGS: 2 images obtained. There is partial visualization of a thoracolumbar lumbar spine fusion. The visualized hardware is intact. No compression deformities. Disc spaces are preserved. Facets are aligned. There is an approximate 12 degrees dextroscoliotic curve. IMPRESSION: Partial visualization of a thoracolumbar spine fusion with the hardware intact Slight dextroscoliotic curve [facility] XR SPINE THORACIC 2 VIEWSon 01-24-2024 XR SPINE THORACIC 2 VIEWS EXAM: XR SPINE THORACIC 2 VIEWS, 01/24/2024 17:32 PM COMPARISON: Scoliosis series August 02, 2023 CLINICAL INDICATIONS: s/p T2-L2 fusion 01/17/23 for Scheurmans kyphosis RELEVANT CLINICAL HISTORY: Z98.1:S/P fusion of thoracic spine STANDING XRAYS ATTN HARDWARE PLACEMENT; FINDINGS: 2 images obtained. There is redemonstration of a posterior fusion extending from T2 to L2. Hardware is intact. There is anterior wedging of several midthoracic vertebral bodies similar to the prior exam. No significant curvature. IMPRESSION: Stable posterior fusion from T2 to L2 [facility] XR Spine lumbosacral junctio n Viewson 01-24-2024 IMPRESSION: Partial visualization of a thoracolumbar spine fusion with the hardware intact Slight dextroscoliotic curve OLOGY EXAM: XR SPINE LUMBAR 2-3 VIEWS, 01/24/2024 17:32 PM COMPARISON: Scoliosis series August 02, 2023 and thoracic spine radiographs performed the same day CLINICAL INDICATIONS: POSTOP RELEVANT CLINICAL HISTORY: Z98.1:S/P fusion of thoracic spine M42.00:Scheuermann's kyphosis Z98.1:S/P lumbar spinal fusion FINDINGS: 2 images obtained. There is partial visualization of a thoracolumbar lumbar spine fusion. The visualized hardware is intact. No compression deformities. Disc spaces are preserved. Facets are aligned. There is an approximate 12 degrees dextroscoliotic curve. RADIOLOGY Adelita Gatica DO - 01/24/2024 EXAM: XR SPINE LUMBAR 2-3 VIEWS, 01/24/2024 17:32 PM COMPARISON: Scoliosis series August 02, 2023 and thoracic spine radiographs performed the same day CLINICAL INDICATIONS: POSTOP RELEVANT CLINICAL HISTORY: Z98.1:S/P fusion of thoracic spine M42.00:Scheuermann's kyphosis Z98.1:S/P lumbar spinal fusion FINDINGS: 2 images obtained. There is partial visualization of a thoracolumbar lumbar spine fusion. The visualized hardware is intact. No compression deformities. Disc spaces are preserved. Facets are aligned. There is an approximate 12 degrees dextroscoliotic curve. IMPRESSION IMPRESSION: Partial visualization of a thoracolumbar spine fusion with the hardware intact Slight dextroscoliotic curve [facility]os[facility]ral junctio n ViewsOrdered By: Adelita Gatica on 01-24-2024 [facility] Work Phone: XR Thoracic spine 2 Viewson 01-24-2024 IMPRESSION: Stable posterior fusion from T2 to L2 OLOGY EXAM: XR SPINE THORACIC 2 VIEWS, 01/24/2024 17:32 PM COMPARISON: Scoliosis series August 02, 2023 CLINICAL INDICATIONS: s/p T2-L2 fusion 01/17/23 for Scheurmans kyphosis RELEVANT CLINICAL HISTORY: Z98.1:S/P fusion of thoracic spine STANDING XRAYS ATTN HARDWARE PLACEMENT; FINDINGS: 2 images obtained. There is redemonstration of a posterior fusion extending from T2 to L2. Hardware is intact. There is anterior wedging of several midthoracic vertebral bodies similar to the prior exam. No significant curvature. RADIOLOGY Adelita Gatica DO - 01/24/2024 EXAM: XR SPINE THORACIC 2 VIEWS, 01/24/2024 17:32 PM COMPARISON: Scoliosis series August 02, 2023 CLINICAL INDICATIONS: s/p T2-L2 fusion 01/17/23 for Scheurmans kyphosis RELEVANT CLINICAL HISTORY: Z98.1:S/P fusion of thoracic spine STANDING XRAYS ATTN HARDWARE PLACEMENT; FINDINGS: 2 images obtained. There is redemonstration of a posterior fusion extending from T2 to L2. Hardware is intact. There is anterior wedging of several midthoracic vertebral bodies similar to the prior exam. No significant curvature. IMPRESSION IMPRESSION: Stable posterior fusion from T2 to L2 [facility] Radiology Study observation (narrative) [facility] XR Thoracic spine 2 ViewsOrd ered By: Adelita Gatica on 01-24-2024 [facility] Work Phone: CNPNon 01-03-2024 [facility] Telephone ([facility]) ANIYAH HODGSON ([id number]) 2000 F Date Time Provider Department 01/03/24 DORITA LARKIN [facility] During your visit today, we recorded the following information about you: Dorita Larkin APRN.PROFESSOR OF PHYSICAL EDUCATION 01/03/2024 12:20 PM Signed Please let patient know her xr is negative. Continue cefdinir as prescribed and follow up if no improvement. John Perales MA 01/03/2024 12:44 PM Signed Pt notified and verbalized understanding John Perales MA Allergies As of Date: 01/03/2024 Noted Allergy Reaction AUGMENTIN (AMOXICILLIN-POT CLAVUL*04/21/2020 1 - Mental Status Change Comments: Patient states she was punching things and didn't know where she was Date Reviewed: 05/31/2023 Reviewed by: John Perales MA - Fully Assessed Prescriptions as of 01/03/2024 - cefdinir (OMNICEF) 300 mg capsule Take 1 capsule by mouth two times a day for 7 days. - traZODone (DESYREL) 50 mg tablet Take 1 tablet by mouth daily at bedtime. - oxycodone HCl (OXYCODONE ORAL) Take 1 tablet by mouth three times a day. Pt i taking roughly 4 to 5 times a day - cyclobenzaprine (FLEXERIL) 5 mg tablet Take 5 mg by mouth three times a day. - enoxaparin (LOVENOX) 40 mg/0.4 mL Inject 1 mg/kg/dose subcutaneously once daily. - diphenhydrAMINE-Acet aminophen (TYLENOL PM EXTRA STRENGTH) 25-500 mg tab Take 2 tablets by mouth four times daily. - docusate sodium (COLACE) 100 mg capsule Take 100 mg by mouth two times a day. - polyethylene glycol 3350 (MIRALAX) 17 gram/dose powder Take 17 g by mouth one time only. Dissolve dose in 4 - 8 ounces of liquid and take as directed. - sennosides (SENOKOT ORAL) Take 2 capsules by mouth. - gabapentin (NEURONTIN) 300 mg capsule Take 300 mg by mouth three times a day. - meloxicam (MOBIC) 7.5 mg tablet Take 1 tablet by mouth two times a day. - cyanocobalamin (VITAMIN B-12) 1,000 mcg tab Take 1 tablet by mouth once daily. - tiZANidine (ZANAFLEX) 4 mg tablet Take 4 mg by mouth daily at bedtime. - hydrocodone/acetamin ophen (VICODIN ORAL) Take 1 tablet by mouth as needed. Problem List As Of Date 01/03/2024 Noted Resolved Well adult exam [Z00.00] 04/21/2020 SONIYA (generalized anxiety disorder) [F41.1] 04/21/2020 Thoracic spine pain [M54.6] 04/29/2020 Kyphosis of thoracic region [M40.204] 03/24/2022 Scheuermann's kyphosis of thoracic spine [M42.0*01/18/2023 Encounter Status:Closed by WORKMAN JOHN SANTORO on 01/03/24 [facility] CNOVon 01-02-2024 CNOV Office Visit (FAMPWS) ANIYAH HODGSON ([id number]) 2000 F Date Time Provider Department 01/02/24 3:20 PM DORITA LARKIN During your visit today, we recorded the following information about you: Temperature Pulse Respiration Blood pressure 98.8 degrees 99/minute 14/minute 117/72 Weight 73.9 kg Dorita Larkin APRN.[facility] 01/02/2024 4:17 PM Signed Chief Complaint Patient presents with: Cough Chest Congestion Ear Pain HPI Aniyah Hodgson is a 23 year old female who presents here today for Above Complaints.. Patient reports cough, chest congestion, bilateral ear pain and headache that started two weeks ago. Patient states her cough is productive with green/yellow sputum. Patient reports a sick exposure, boyfriend ill with similar symptoms. Patient has been talking some OTC Mucinex and Ibuprofen with minimal relief. Past medical history, appointments, medications, allergies reviewed. 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 S/p surgery 01/17/2023 at [facility] Thoracic spine pain 04/29/2020 Well adult exam 04/21/2020 Last done: 04/21/2020 Previous Surgical History PAST SURGICAL HISTORY Procedure Laterality Date CYST/MOLE REMOVAL Left 2003 ganglion cyst IUD REMOVAL 08/02/2022 surgically removed PAST SURGICAL HISTORY OF 01/17/2023 T2-L2 posterior spinal arthrodesis and spinal instrumentation, [facility] SKIN BX, 1 LESION 2004 mole removal TYMPANOSTOMY GENERAL ANESTHESIA Bilateral 2008 Family History FAMILY HISTORY Problem Relation Age of Onset Ovarian cancer Maternal Grandmother Ovarian cancer Paternal Grandmother Patient Allergies ALLERGIES Allergen Reactions Augmentin [Amoxicil* Mental Status Change Patient states she was punching things and didn't know where she was Current Medications Current Outpatient Medications on File Prior to Visit Medication Sig traZODone (DESYREL) 50 mg tablet Take 1 tablet by mouth daily at bedtime. oxycodone HCl (OXYCODONE ORAL) Take 1 tablet by mouth three times a day. Pt i taking roughly 4 to 5 times a day (Patient not taking: Reported on 02/17/2023) cyclobenzaprine (FLEXERIL) 5 mg tablet Take 5 mg by mouth three times a day. (Patient not taking: Reported on 02/17/2023) enoxaparin (LOVENOX) 40 mg/0.4 mL Inject 1 mg/kg/dose subcutaneously once daily. (Patient not taking: Reported on 02/17/2023) diphenhydrAMINE-Acet aminophen (TYLENOL PM EXTRA STRENGTH) 25-500 mg tab Take 2 tablets by mouth four times daily. (Patient not taking: Reported on 02/17/2023) docusate sodium (COLACE) 100 mg capsule Take 100 mg by mouth two times a day. (Patient not taking: Reported on 02/17/2023) polyethylene glycol 3350 (MIRALAX) 17 gram/dose powder Take 17 g by mouth one time only. Dissolve dose in 4 - 8 ounces of liquid and take as directed. sennosides (SENOKOT ORAL) Take 2 capsules by mouth. gabapentin (NEURONTIN) 300 mg capsule Take 300 mg by mouth three times a day. (Patient not taking: Reported on 02/17/2023) meloxicam (MOBIC) 7.5 mg tablet Take 1 tablet by mouth two times a day. (Patient not taking: Reported on 02/03/2023) cyanocobalamin (VITAMIN B-12) 1,000 mcg tab Take 1 tablet by mouth once daily. tiZANidine (ZANAFLEX) 4 mg tablet Take 4 mg by mouth daily at bedtime. (Patient not taking: Reported on 02/03/2023) hydrocodone/acetamin ophen (VICODIN ORAL) Take 1 tablet by mouth as needed. (Patient not taking: Reported on 02/03/2023) No current facility-administere d medications on file prior to visit. Social History Social History Tobacco Use Smoking status: Former Current packs/day: 0.00 Average packs/day: 0.5 packs/day for 4.0 years (2.0 ttl pk-yrs) Types: Cigarettes Start date: 12/05/2018 Quit date: 12/05/2022 Years since quittin.0 Smokeless tobacco: Never Tobacco comments: 2 cigs per day Vaping Use Vaping status: Never Used Substance Use Topics Alcohol use: Never Drug use: Never Review of Symptoms REVIEW OF SYSTEMS SEE HPI EXAM: BP 117/72 Pulse 99 Temp 37.1 ?C (98.8 ?F) Resp 14 Wt 73.9 kg (163 lb) LMP 06/28/2022 (Approximate) BMI 25.29 kg/m? General Appearance: Well appearing, alert, in no acute distress, well-hydrated, well nourished.. Ears: Positive findings: R TM: erythematous, L TM: erythematous. Nose/Sinuses: Nares normal, septum midline, mucosa normal, no drainage or sinus tenderness. Oropharynx: Lips, mucosa, and tongue normal, teeth and gums normal, oropharynx normal. Lungs: Lungs clear to auscultation. No wheezing, rhonchi, rales.. Heart: RRR without murmur, gallop, or rubs. No ectopy. Abdomen: Normal abdominal exam, Abdomen soft, non-tender. Bowel sounds normal. No masses, organomegaly. Musculoskeletal: (more content not included)... Normal [facility] XR CHEST 2V FRONTAL/LATon XR CHEST 2V FRONTAL/LAT * * *Final Repor t* * * DATE OF EXAM: Jan 02 2024 4:29PM WOX [id number] - XR CHEST 2V FRONTAL/LAT / PROCEDURE REASON: Wheezing * * * * Physician Interpretation * * * * EXAMINATION: CHEST RADIOGRAPH (2 VIEW FRONTAL and LATERAL) CLINICAL HISTORY: Wheezing MQ: XC2_6 EXAM DATE/TIME: 01/02/2024 4:29 PM COMPARISON: No relevant prior studies available. RESULT: Lines, tubes, and devices: None. Lungs and pleura: No consolidation. No lung mass. No pleural effusion. No pneumothorax. Cardiomediastinal silhouette: Normal cardiomediastinal silhouette. Bones and soft tissues: Paire spinal rods and pedicular screw device seen transfixing the spine. IMPRESSION: No acute radiographic abnormality. Register Clerk: PSCB Transcribe Date/Time: Jan 02 2024 4:30P Dictated by : VISHAL DUGAN MD This examination was interpreted and the report reviewed and electronically signed by: VISHAL DUGAN MD on Jan 02 2024 4:31PM EST [id number] Normal [facility] XR Chest PA and Lateralon IMPRESSION: No acute radiographic abnormality. Register Clerk: PSCB Transcribe Date/Time: Jan 02 2024 4:30P Dictated by : VISHAL DUGAN MD This examination was interpreted and the report reviewed and electronically signed by: VISHAL DUGAN MD on Jan 02 2024 4:31PM EST DIVISION OF RADIOLOGY * * *Final Report* * * DATE OF EXAM: Jan 02 2024 4:29PM WOX [id number] - XR CHEST 2V FRONTAL/LAT / PROCEDURE REASON: Wheezing * * * * Physician Interpretation * * * * EXAMINATION: CHEST RADIOGRAPH (2 VIEW FRONTAL & LATERAL) CLINICAL HISTORY: Wheezing MQ: XC2_6 EXAM DATE/TIME: 01/02/2024 4:29 PM COMPARISON: No relevant prior studies available. RESULT: Lines, tubes, and devices: None. Lungs and pleura: No consolidation. No lung mass. No pleural effusion. No pneumothorax. Cardiomediastinal silhouette: Normal cardiomediastinal silhouette. Bones and soft tissues: Paire spinal rods and pedicular screw device seen transfixing the spine. DIVISION OF RADIOLOGY Provider, [facility] [place] - 01/02/2024 * * *Final Report* * * DATE OF EXAM: Jan 02 2024 4:29PM WOX [id number] - XR CHEST 2V FRONTAL/LAT / PROCEDURE REASON: Wheezing * * * * Physician Interpretation * * * * EXAMINATION: CHEST RADIOGRAPH (2 VIEW FRONTAL & LATERAL) CLINICAL HISTORY: Wheezing MQ: XC2_6 EXAM DATE/TIME: 01/02/2024 4:29 PM COMPARISON: No relevant prior studies available. RESULT: Lines, tubes, and devices: None. Lungs and pleura: No consolidation. No lung mass. No pleural effusion. No pneumothorax. Cardiomediastinal silhouette: Normal cardiomediastinal silhouette. Bones and soft tissues: Paire spinal rods and pedicular screw device seen transfixing the spine. IMPRESSION IMPRESSION: No acute radiographic abnormality. Register Clerk: JESSICA Transcribe Date/Time: Jan 02 2024 4:30P Dictated by : VISHAL DUGAN MD This examination was interpreted and the report reviewed and electronically signed by: VISHAL DUGAN MD on Jan 02 2024 4:31PM EST [facility] Radiology Study observation (narrative) Maisha sims [facility] XR Chest PA and LateralOrder ed By: [facility]cf Provider on 01-02-2024 [facility] Office Visit Reporton 2023 Office Visit Report [facility] [address] [place] [address] OFFICE VISIT Date of Service: 11/17/23 MR#: [id number] Acct: [id number] Patient: ANIYAH HODGSON Rep #: [id number] : 2000 Provider: CASSIE ochoa Age/Sex: 23/F Location: [facility] [place] Status: Signed Intake Vital Signs 03/28/23 15:13 09/28/23 15:01 11/17/23 15:08 Height 5 ft 8 in 5 ft 8 in 5 ft 8 in Weight: 161 lb BMI 24.5 BP 105/71 Intake Visit Reasons: DEPO Chief Complaint: Depo Provera injection Residential Real Estate Assistant Required: No Is patient in pain?: No Allergies amoxicillin trihydrate (From Augmentin) Allergy (Verified 11/17/23 15:18) Unknown potassium clavulanate (From Augmentin) Allergy (Verified 11/17/23 15:18) Unknown Medications ???Medication ???Instructions ???Recorded ???Confirmed ???Type medroxyprogesterone 150 mg/mL 150 mg IM [id number] #1 mL 09/28/23 11/17/23 Rx intramuscular suspension (Depo-Provera) Is last menstrual period known: No Post menopausal: No Patient : No Have you fallen in the past year?: No Office Meds Depo-Provera 150 mg/mL intramuscular syringe Performing Provider: CASSIE Santizo NP Performing Location: [facility] Administered by: Velma Jacobs on 11/17/23 15:20 Dose Route Admin Location Dispensed Lot Number Expiration Date MDKat Torres ufacturer 150 mg IM R GLut 1 mL [id number] 03/06/26 44627-446-86 [facility] Assessment and Plan Assessment and Plan (1) Contraception management: Status: Acute Qualifiers: Contraceptive encounter type: surveillance Contraceptive type: injectable Qualified Code(s): Z30.42 - Encounter for surveillance of injectable contraceptive Comment: depo provera-since 2022. Orders: Orders Depo-Provera Injection - Home Med Today Z30.42 - Encounter for surveillance of injectable contraceptive Clinical Quality Measures Falls Risk Screening/Assistive Devices Have you fallen in the past year?: No 11/17/23 1537 Date Deanna MATTHEWS Cosigner Signature: Date (if applicable) CC: Normal [facility] Supervisor Component Assembler Office Visit Reporton 09-28-2023 Supervisor Component Assembler Office Visit Report [facility] [address] [place] [address] OFFICE VISIT Date of Service: 09/28/23 MR#: [id number] Acct: [id number] Name: ANIYAH HODGSON Rep #: [id number] : 2000 Provider: CASSIE Storey Age/Sex: 23/F Location: [facility] [place] Status: Signed Intake Vital Signs 03/28/23 15:13 08/11/23 15:25 09/28/23 15:01 09/28/23 15:01 Height 5 ft 8 in 5 ft 8 in 5 ft 8 in 5 ft 8 in Weight: 161 lb 159 lb 4 oz BMI 24.5 24.2 BP 106/69 118/84 H 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 Assistant Required: No Is patient in pain?: No Allergies amoxicillin trihydrate (From Augmentin) Allergy (Verified 09/28/23 15:00) Unknown potassium clavulanate (From Augmentin) Allergy (Verified 09/28/23 15:00) Unknown Medications ???Medication ???Instructions ???Recorded ???Confirmed ???Type tizanidine 4 mg tablet 4 mg PO HS 03/28/23 09/28/23 History cyclobenzaprine 10 mg tablet 10 mg PO TID PRN 09/28/23 09/28/23 History medroxyprogesterone 150 mg/mL 150 mg IM [id number] #1 mL 09/28/23 09/28/23 Rx intramuscular suspension (Depo-Provera) Post menopausal: No Patient : No : No PFSH Medical History Status post hysteroscopy ( 07/23/22) Genetic testing of female Restless legs Migraine headache Smoker History of pain when walking Back pain IUD complication Pain in left tibia Kyphosis Anxiety Surgical History S/P spinal fusion Hx of tonsillectomy History of surgery on wrist Myringotomy tube status History of removal of skin mole Family History Grandmother Cancer, Onset Age: 27 Ovarian Grandmother Cancer, Onset Age: 60 ovarian Social History (Updated 09/28/23 @ 15:07 by Thalia Tolbert) adopted: No household members: significant other housing: house current occupational status: employed current occupation: [employer] pets and animals: No history of recent travel: Yes out of state: Yes sexually active: Yes Smoking Status: Current every day smoker tobacco type: cigarettes second hand exposure: No alcohol intake: never substance use type: does not use caffeine: Yes Type: carbonated beverages Number of servings: 5 and tea what type of physical activity do you participate in: none seatbelt use: never do you feel safe at home: Yes additional social history: ADDISON Rawls History 1 Elective abortions Hx Para 0 Spontaneous abortions Hx # Term Pregnancies Ectopic pregnancies Hx # Pregnancies Multiple births # of living children 1 Past Pregnancies Del. Date Name GA/Weeks Outcome Route Bth Weight Gen Labor Lgth Anesthesia Del Tyatjob Provider FOB 08/30/19 Luke 39 live - full term Male epidural [facility] Delivery Date: 08/30/19 Last Updated by: Swati Bedolla 1st degree laceration HPI Encounter for routine gynecological examination Details: ANIYAH HODGSON is a 23 year old who presents for annual exam. She reports no issues or concerns today. She is in need of refill for her depo shot. Last PAP: 06/2022; normal. History of abnormal PAP: None Last mammogram: None History of abnormal mammogram: None Colon cancer screening: None Other preventative health care screenings: Primary Care Doctor: Dorita Alcala NP Female Reproductive History Last Menstrual Period: 08/04/23 Questions: metorrhagia: No, sexually active: Yes, dyspareunia: No and PCB: No ROS Const Constitutional: Denies chills, fatigue, fever(s), headache(s) or weight loss Eyes Eyes: Denies change in vision ENT ENT: Denies dizziness Resp Resp: Denies cough GI GI: Denies abdominal pain, constipation or nausea : Denies difficulty voiding, dysuria, hematuria, pelvic pain, prolapse symptoms, urinary incontinence, vaginal discharge, vaginal dryness, vaginal odor or vaginal pruritus Musc Musc: Reports other (chronic back pain since child.) Skin Skin/Breast: Denies alopecia or rash Neuro Neuro: Denies dizziness Psych Psych: Denies anxiety or depression Endo Endo: Denies cold intolerance, excessive sweating or heat intolerance Exam Const General: cooperative, healthy appearing, comfortable, no acute distress, well groomed and well hydrated Nutritional Appearance: well nourished Orientation: alert, awake and oriented x3 HENMT Head: normal to inspection and normocephalic Ears: hearing grossly normal bilaterally and external ears normal Nose: external nose normal Face and sinus: normal facial exam Eyes General: appearance normal, both eyes and all related structures Neck Neck: normal visual inspection, full ROM and no lymph (more content not included)... 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 Thoracolumbar spine: 12 rib-bearing thoracic vertebral bodies and 5 lumbar vertebral bodies are identified. Redemonstration of postsurgical changes related to posterior fixation from T2 through L2. Hardware is stable and intact. Underlying vertebral bodies are unchanged and height and alignment. Dextrocurvature of lumbar spine measures about 9 degrees. Pelvic Tilt: There is no pelvic tilt. IMPRESSION: Stable previous posterior fixation from T2 through L2 with intact hardware. Lumbar dextrocurvature. [facility] XR Thoracic and lumbar spine Views for scoliosison 08-02-2023 IMPRESSION: Stable previous posterior fixation from T2 through L2 with intact hardware. Lumbar dextrocurvature. 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 Thoracolumbar spine: 12 rib-bearing thoracic vertebral bodies and 5 lumbar vertebral bodies are identified. Redemonstration of postsurgical changes related to posterior fixation from T2 through L2. Hardware is stable and intact. Underlying vertebral bodies are unchanged and height and alignment. Dextrocurvature of lumbar spine measures about 9 degrees. Pelvic Tilt: There is no pelvic tilt. 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 Thoracolumbar spine: 12 rib-bearing thoracic vertebral bodies and 5 lumbar vertebral bodies are identified. Redemonstration of postsurgical changes related to posterior fixation from T2 through L2. Hardware is stable and intact. Underlying vertebral bodies are unchanged and height and alignment. Dextrocurvature of lumbar spine measures about 9 degrees. Pelvic Tilt: There is no pelvic tilt. IMPRESSION IMPRESSION: Stable previous posterior fixation from T2 through L2 with intact hardware. Lumbar dextrocurvature. [facility] Radiology Study observation (narrative) U [facility] XR Thoracic and lumbar spine Views for scoliosisOrdered By: Michelle Santoyo on 08-02-2023 [facility] Work Phone: STREP A MOLECULAR (POC)on Procedural Control Valid [facility] Strep A (POCT) Negative Negative [facility] XR SPINE SCOLIOSIS 2-3 VIEWS on 04-14-2023 XR SPINE SCOLIOSIS 2-3 VIEWS EXAM: XR SPINE SCOLIOSIS 2-3 VIEWS, 04/14/2023 14:40 PM COMPARISON: Scoliosis survey dated February 23, 2023 CLINICAL INDICATIONS: pain RELEVANT CLINICAL HISTORY: Z98.1:S/P fusion of thoracic spine 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 Thoracolumbar spine: Again noted is long spanning posterior fusion hardware extending from T2 through L2. Hardware appears stable in alignment. Accentuation of the upper thoracic kyphosis is unchanged with minimal anterior wedging of midthoracic vertebral segments. Mild rightward curvature of the thoracolumbar junction again evident. Pelvic Tilt: Minimal left side superior pelvic tilt of 8 mm. IMPRESSION: Stable postoperative appearance of the thoracolumbar spine. Normal [facility] XR Thoracic and lumbar spine Views for scoliosison 04-14-2023 IMPRESSION: Stable postoperative appearance of the thoracolumbar spine. 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 Thoracolumbar spine: Again noted is long spanning posterior fusion hardware extending from T2 through L2. Hardware appears stable in alignment. Accentuation of the upper thoracic kyphosis is unchanged with minimal anterior wedging of midthoracic vertebral segments. Mild rightward curvature of the thoracolumbar junction again evident. Pelvic Tilt: Minimal left side superior pelvic tilt of 8 mm. 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 Thoracolumbar spine: Again noted is long spanning posterior fusion hardware extending from T2 through L2. Hardware appears stable in alignment. Accentuation of the upper thoracic kyphosis is unchanged with minimal anterior wedging of midthoracic vertebral segments. Mild rightward curvature of the thoracolumbar junction again evident. Pelvic Tilt: Minimal left side superior pelvic tilt of 8 mm. IMPRESSION IMPRESSION: Stable postoperative appearance of the thoracolumbar spine. [facility] Radiology Study observation (narrative) [facility] XR Thoracic and lumbar spine Views for scoliosisOrdered By: Gabriel Ramirez on 04-14-2023 [facility] Work Phone: XR Thoracic and lumbar spine Views for scoliosison 03-03-2023 IMPRESSION: Stable scoliosis series. No hardware failure. OLOGY EXAM: XR SPINE SCOLIOSIS 2 VIEWS, 03/03/2023 14:01 PM COMPARISON: Scoliosis series January 20, 2023 CLINICAL INDICATIONS: post op fusion RELEVANT CLINICAL HISTORY: Z98.1:S/P fusion of thoracic spine FINDINGS: 2 images obtained. Postsurgical changes are redemonstrated related to dorsal instrumentation from T2 to L2. There is no gross indication of hardware failure. Overall alignment of the spine is grossly unchanged with a slight dextroscoliosis of the lumbar spine. Several anteriorly wedged mid thoracic vertebral bodies are redemonstrated with stable kyphotic curvature. RADIOLOGY Dalton Short MD - 03/03/2023 EXAM: XR SPINE SCOLIOSIS 2 VIEWS, 03/03/2023 14:01 PM COMPARISON: Scoliosis series January 20, 2023 CLINICAL INDICATIONS: post op fusion RELEVANT CLINICAL HISTORY: Z98.1:S/P fusion of thoracic spine FINDINGS: 2 images obtained. Postsurgical changes are redemonstrated related to dorsal instrumentation from T2 to L2. There is no gross indication of hardware failure. Overall alignment of the spine is grossly unchanged with a slight dextroscoliosis of the lumbar spine. Several anteriorly wedged mid thoracic vertebral bodies are redemonstrated with stable kyphotic curvature. IMPRESSION IMPRESSION: Stable scoliosis series. No hardware failure. [facility] Radiology Study observation (narrative) [facility] XR Thoracic and lumbar spine Views for scoliosisOrdered By: Dalton Short on 03-03-2023 [facility] Work Phone: No Panel Informationon 02-18 IMPRESSION: Postoperative appearance of the thoracolumbar spine without evidence of complication. Register Clerk: JESSICA Transcribe Date/Time: Feb 18 2023 5:28P Dictated by : RADHA GLOVER MD This examination was interpreted and the report reviewed and electronically signed by: RADHA GLOVER MD on Feb 18 2023 5:32PM EST DIVISION OF RADIOLOGY No Panel InformationOrdered By: Ccf Provider on 02-18-2023 [facility] XR Lumbar spine AP and Later sudha 02-18-2023 * * *Final Report* * * DATE OF EXAM: Feb 17 2023 4:01PM WOX [id number] - XR LUMBAR 2V AP/LAT / PROCEDURE REASON: multiple diagnoses * * * * Physician Interpretation * * * * EXAM: XR THORACIC 3V AP/LAT/SWIMMERS, XR LUMBAR 2V AP/LAT EXAM DATE: 02/17/2023 4:01 PM CLINICAL HISTORY: 22 years Female with Adverse effect of treatment, subsequent encounter; Weakness of both lower extremities; Numbness and tingling of both lower extremities Numbness ; had robs put in mid Nov. and is having weakness in legs and dizziness COMPARISON: 04/20/2022 RESULT: COUNTING REFERENCE: First rib-bearing vertebra is considered T1. Posterior albina and screw spinal fixation hardware from T2 to L2 appears without evidence of fracture or other hardware complication. No acute fracture, compression deformity, or subluxation. Disc spaces are preserved. DIVISION OF RADIOLOGY Provider, [facility] [place] - 02/18/2023 * * *Final Report* * * DATE OF EXAM: Feb 17 2023 4:01PM WOX [id number] - XR LUMBAR 2V AP/LAT / PROCEDURE REASON: multiple diagnoses * * * * Physician Interpretation * * * * EXAM: XR THORACIC 3V AP/LAT/SWIMMERS, XR LUMBAR 2V AP/LAT EXAM DATE: 02/17/2023 4:01 PM CLINICAL HISTORY: 22 years Female with Adverse effect of treatment, subsequent encounter; Weakness of both lower extremities; Numbness and tingling of both lower extremities Numbness ; had robs put in mid Nov. and is having weakness in legs and dizziness COMPARISON: 04/20/2022 RESULT: COUNTING REFERENCE: First rib-bearing vertebra is considered T1. Posterior albina and screw spinal fixation hardware from T2 to L2 appears without evidence of fracture or other hardware complication. No acute fracture, compression deformity, or subluxation. Disc spaces are preserved. IMPRESSION IMPRESSION: Postoperative appearance of the thoracolumbar spine without evidence of complication. Register Clerk: PSCB Transcribe Date/Time: Feb 18 2023 5:28P Dictated by : RADHA GLOVER MD This examination was interpreted and the report reviewed and electronically signed by: RADHA GLOVER MD on Feb 18 2023 5:32PM EST [facility] XR Thoracic spine AP and Lat eral and [place] 02-18-2023 * * *Final Report* * * DATE OF EXAM: Feb 17 2023 4:01PM WOX [id number] - XR THORACIC 3V AP/LAT/SWIMMERS / PROCEDURE REASON: multiple diagnoses * * * * Physician Interpretation * * * * EXAM: XR THORACIC 3V AP/LAT/SWIMMERS, XR LUMBAR 2V AP/LAT EXAM DATE: 02/17/2023 4:01 PM CLINICAL HISTORY: 22 years Female with Adverse effect of treatment, subsequent encounter; Weakness of both lower extremities; Numbness and tingling of both lower extremities Numbness ; had robs put in mid Nov. and is having weakness in legs and dizziness COMPARISON: 04/20/2022 RESULT: COUNTING REFERENCE: First rib-bearing vertebra is considered T1. Posterior albina and screw spinal fixation hardware from T2 to L2 appears without evidence of fracture or other hardware complication. No acute fracture, compression deformity, or subluxation. Disc spaces are preserved. DIVISION OF RADIOLOGY Provider, [facility] - 02/18/2023 * * *Final Report* * * DATE OF EXAM: Feb 17 2023 4:01PM WOX [id number] - XR THORACIC 3V AP/LAT/SWIMMERS / PROCEDURE REASON: multiple diagnoses * * * * Physician Interpretation * * * * EXAM: XR THORACIC 3V AP/LAT/SWIMMERS, XR LUMBAR 2V AP/LAT EXAM DATE: 02/17/2023 4:01 PM CLINICAL HISTORY: 22 years Female with Adverse effect of treatment, subsequent encounter; Weakness of both lower extremities; Numbness and tingling of both lower extremities Numbness ; had robs put in mid Nov. and is having weakness in legs and dizziness COMPARISON: 04/20/2022 RESULT: COUNTING REFERENCE: First rib-bearing vertebra is considered T1. Posterior albina and screw spinal fixation hardware from T2 to L2 appears without evidence of fracture or other hardware complication. No acute fracture, compression deformity, or subluxation. Disc spaces are preserved. IMPRESSION IMPRESSION: Postoperative appearance of the thoracolumbar spine without evidence of complication. Register Clerk: PSCB Transcribe Date/Time: Feb 18 2023 5:28P Dictated by : RADHA GLOVER MD This examination was interpreted and the report reviewed and electronically signed by: RADHA GLOVER MD on Feb 18 2023 5:32PM EST [facility] No Panel Informationon 02-17 Radiology Study observation (narrative) [facility] Absolute lymphocyte countOrd ered By: Yovany Zheng on 11-30-2023 Lymphocytes Auto (Unsp spec) [#/Vol] 1.09 10*3/uL 0.83-4.51 [facility] Basophil percentageOrdered B y: Yovany Springo on 02-03-2023 Basophils/100 WBC (Bld) 0.7 % 0-1 [facility] Chloride [Moles/Vol] 106 mmol/L 98-107 [facility] Eosin[facility]/100 WBC (Bld) 0.5 % 0-5 [facility] Glucose [Mass/Vol] 97 mg/dL 74-106 [facility] Neutrophils (Bld) [#/Vol] 4.3 10*3/uL 2.0-7.7 [facility] Neutrophils/100 WBC (Bld) 72.7 % 47-70 [facility] Potassium [Moles/Vol] 4.1 mmol/L 3.5-5.1 [facility] Sodium [Moles/Vol] 139 mmol/L 136-145 [facility] WBC (Bld) [#/Vol] 5.9 10*3/uL 4.4-11.0 [facility] Blood erythrocytes count (nu mber/volume)Ordered By: Yovany Zheng on 02-03-2023 RBC (Bld) [#/Vol] 3.97 10*6/uL 4.2-5.4 [facility] Blood hemoglobin measurement (mass/volume)Ordered By: Yovany Zheng on 02-03-2023 Hemoglobin (Bld) [Mass/Vol] 11.7 g/dL 12.0-15.0 [facility] Blood lymphocytes/100 leukoc ytesOrdered By: Yovany Zheng on 02-03-2023 Lymphocytes/100 WBC (Bld) 18.4 % 19-41 [facility] Blood monocytes/100 leukocyt esOrdered By: Yovanyashtyn Zheng on 02-03-2023 Monocytes/100 WBC (Bld) 7.4 % 0-10 [facility] Blood platelet mean volumeOr dered By: Yovany Zheng on 02-03-2023 Platelet mean volume (Bld) [Entitic vol] 9.5 fL 6.2-12.0 [facility] Determination of erythrocyte mean corpuscular volume (MCV)Ordered By: Yovany Zheng on 02-03-2023 MCV (RBC) [Entitic vol] 93.2 fL 81-99 [facility] Hematocrit Auto (Bld) [Volum e fraction]Ordered By: Yovany Zheng on 02-03-2023 Hematocrit (Bld) [Volume fraction] 37.0 % 37-47 [facility] Laboratory - Chemistry and C hemistry - challengeOrdered By: Yovanyashtyn Zheng on 02-03-2023 CO2 [Moles/Vol] 27.0 mmol/L 21.0-32.0 [facility] Urea nitrogen/Creatinine [Mass ratio] 15.1 mg/mg 10-20 [facility] Laboratory - Hematology and Cell countsOrdered By: Yovanyashtyn Zheng on 02-03-2023 Erythrocyte distribution width (RBC) [Entitic vol] 41.5 fL 35.1-43.9 [facility] Erythrocyte distribution width (RBC) [Ratio] 12.2 % 11.6-14.6 [facility] Immature granulocytes/100 WBC (Bld) 0.300 % 0.0-0.9 [facility] Comment on above: IG% - Immature Granu locytes (promyelocytes, myelocytes and metamyelocytes) > 1% indicates that a LEFT SHIFT is Present. MCH (RBC) [Entitic mass] 29.5 pg 27.0-32.0 [facility] Nucleated RBC/100 WBC (Bld) [Ratio] 0 % 0-5 [facility] MCHC Auto (RBC) [Mass/Vol]Or dered By: Yovany Zheng on 02-03-2023 MCHC (RBC) [Mass/Vol] 31.6 g/dL 32-36 [facility] No Panel InformationOrdered By: Yovany Zheng on 02-03-2023 Estimated Creatinine Clearance Calc 145.85 ml/min [facility] Estimated GFR (MDRD) Amer 159 mL/min >60 [facility] Comment on above: GFR Calc Estimated GFR (MDRD) Non-Af Amer 131 mL/min >60 [facility] Comment on above: Non- GFR Calc Platelets bldOrdered By: Yovany Zheng on 02-03-2023 Platelets (Bld) [#/Vol] 318 10*3/uL 150-450 [facility] Serum or plasma calcium bina urement (mass/volume)Ordered By: [facility] on 02-03-2023 Calcium [Mass/Vol] 9.2 mg/dL 8.5-10.1 [facility] Serum or plasma creatinine m easurement (mass/volume)Ordered By: [facility] on 02-03-2023 Creatinine [Mass/Vol] 0.60 mg/dL 0.55-1.02 [facility] Comment on above: The validity of the calculated GFR & GFRAA in patients over 70 years has not been determined. Clinical correlation is essential. Serum or plasma urea nitroge n measurement (mass/volume)Ordered By: [facility] on 02-03-2023 Urea nitrogen [Mass/Vol] 9 mg/dL 7-18 [facility] Thin prep Papanicolaou smear with manual screeningOrdered By: [facility] on 02-03-2023 Thin prep Papanicolaou smear with manual screening 6 5-15 [facility] PLATELET COUNTon 01-21-2023 Interpretation and review of laboratory results Abnormal [facility] Platelet mean volume (Bld) [Entitic vol] 9.9 fL 8.5 - 12.2 fL [facility] Platelets (Bld) [#/Vol] 141 10*3/uL Low 150 - 393 K/uL [facility] BASIC METABOLIC PANELon 01-05 Anion gap [Moles/Vol] 13 mmol/L 7 - 17 mmol/L [facility] Calcium [Mass/Vol] 8.5 mg/dL Low 8.6 - 10. 5 mg/dL [facility] Chloride [Moles/Vol] 105 mmol/L 98 - 10 8 mmol/L [facility] CO2 [Moles/Vol] 24 mmol/L 21 - 31 mmol/L [facility] Creatinine [Mass/Vol] 0.51 mg/dL 0.50 - 1.20 mg/dL [facility] eGFR, CKD-EPI, Female - PINF [facility] Comment on above: Reported eGFR is bas ed on the CKD-EPI 2020 equation using creatinine, age, and sex. Glucose [Mass/Vol] 117 mg/dL High 70 - 99 mg/dL [facility] Interpretation and review of laboratory results Abnormal [facility] Osmolality Calc [Osmolality] 286 [facility] Potassium [Moles/Vol] 3.6 mmol/L 3.5 - 5.0 mmol/L [facility] Sodium [Moles/Vol] 138 mmol/L 135 - 145 mmol/L [facility] Urea nitrogen [Mass/Vol] 3 mg/dL Low 7 - 25 mg/d L [facility] Urea nitrogen/Creatinine [Mass ratio] 6 mg/mg [facility] CBC,PLATELETSon 01-20-2023 Erythrocyte distribution width (RBC) [Ratio] 12.1 % 10.8 - 14.9 % [facility] Hematocrit (Bld) [Volume fraction] 27.2 % Low 34.9 - 44.3 % [facility] Hemoglobin (Bld) [Mass/Vol] 9.3 g/dL Low 11.4 - 15.2 g/dL [facility] Interpretation and review of laboratory results Abnormal [facility] MCH (RBC) [Entitic mass] 30.6 pg 25. 9 - 33.9 pg [facility] MCHC (RBC) [Mass/Vol] 34.2 g/dL 31.4 - 35.9 g/dL [facility] MCV (RBC) [Entitic vol] 89.5 fL 79.6 - 97.7 fL [facility] Platelet mean volume (Bld) [Entitic vol] [facility] Comment on above: Not measured Platelets (Bld) [#/Vol] 125 10*3/uL Low 150 - 393 K/uL [facility] RBC (Bld) [#/Vol] 3.04 10*6/uL Low [facility] WBC (Bld) [#/Vol] 6.83 10*3/uL 3.99 - 11. 19 K/uL [facility] XR Abdomen Single viewon IMPRESSION: Mild gaseous distention of colon the region of the splenic flexure with gradual tapering distally. This is of doubtful clinical significance. OLOGY EXAM: XR ABDOMEN 1 VIEW, 01/20/2023 21:19 PM COMPARISON: Radiographs performed earlier the same day for scoliosis. CLINICAL INDICATIONS: ileus eval FINDINGS: Tubes: Surgical drain projects over the right aspect of the mid abdomen. No small bowel dilatation. There is redemonstration of gaseous dilatation of the colon in the region of the splenic flexure with tapering distally. No definite pneumoperitoneum or pneumatosis of the bowel wall. No organomegaly or mass effect. No significant calcific densities or definite stones. Visualized osseous structures are unremarkable for the patient's age. RADIOLOGY Jared Quinonez MD - 01/20/2023 EXAM: XR ABDOMEN 1 VIEW, 01/20/2023 21:19 PM COMPARISON: Radiographs performed earlier the same day for scoliosis. CLINICAL INDICATIONS: ileus eval FINDINGS: Tubes: Surgical drain projects over the right aspect of the mid abdomen. No small bowel dilatation. There is redemonstration of gaseous dilatation of the colon in the region of the splenic flexure with tapering distally. No definite pneumoperitoneum or pneumatosis of the bowel wall. No organomegaly or mass effect. No significant calcific densities or definite stones. Visualized osseous structures are unremarkable for the patient's age. IMPRESSION IMPRESSION: Mild gaseous distention of colon the region of the splenic flexure with gradual tapering distally. This is of doubtful clinical significance. [facility] Radiology Study observation (narrative) [facility] XR Abdomen Single viewOrdere d By: Jared Quinonez on 01-20-2023 [facility] Work Phone: XR Thoracic and lumbar spine Views for scoliosison 01-20-2023 IMPRESSION: 1. Interval posterior fixation of the thoracolumbar spine spanning the T2-L2 levels resultant decreased thoracic kyphosis. Posterior fixation hardware appears intact. OLOGY EXAM: XR SPINE SCOLIOSIS 2/3 VIEWS, 01/20/2023 11:11 AM COMPARISON: November 22, 2022 CLINICAL INDICATIONS: fusion RELEVANT CLINICAL HISTORY: FINDINGS: 8 images obtained. Thoracolumbar spine: 12 rib-bearing thoracic vertebral bodies and 5 lumbar vertebral bodies are identified. Interval posterior fixation of the thoracolumbar spine including bilateral vertical rods and multilevel pedicle screws spanning the T2-L2 levels. Hardware appears intact. Decreased thoracic kyphosis, now measuring 46 degrees between the superior endplate of T2 and the inferior endplate of T12. No significant spinal scoliotic curvature. Similar-appearing mild anterior wedging and endplate degenerative changes of several midthoracic vertebral bodies. Soft tissue swelling and soft tissue gas posterior to the thoracolumbar spine, with overlying surgical drain. Pelvic Tilt: No significant pelvic tilt. RADIOLOGY Dwain Roca MD - 01/20/2023 EXAM: XR SPINE SCOLIOSIS 2/3 VIEWS, 01/20/2023 11:11 AM COMPARISON: November 22, 2022 CLINICAL INDICATIONS: fusion RELEVANT CLINICAL HISTORY: FINDINGS: 8 images obtained. Thoracolumbar spine: 12 rib-bearing thoracic vertebral bodies and 5 lumbar vertebral bodies are identified. Interval posterior fixation of the thoracolumbar spine including bilateral vertical rods and multilevel pedicle screws spanning the T2-L2 levels. Hardware appears intact. Decreased thoracic kyphosis, now measuring 46 degrees between the superior endplate of T2 and the inferior endplate of T12. No significant spinal scoliotic curvature. Similar-appearing mild anterior wedging and endplate degenerative changes of several midthoracic vertebral bodies. Soft tissue swelling and soft tissue gas posterior to the thoracolumbar spine, with overlying surgical drain. Pelvic Tilt: No significant pelvic tilt. IMPRESSION IMPRESSION: 1. Interval posterior fixation of the thoracolumbar spine spanning the T2-L2 levels resultant decreased thoracic kyphosis. Posterior fixation hardware appears intact. [facility] Radiology Study observation (narrative) [facility] XR Thoracic and lumbar spine Views for scoliosisOrdered By: Dwain Roca on 01-20-2023 [facility] Work Phone: BASIC METABOLIC PANELOrdered By: Gonzalo Duke on 01-19-2023 Anion gap [Moles/Vol] 12 mmol/L 7 - 17 mmol/L [facility] Calcium [Mass/Vol] 8.4 mg/dL Low 8.6 - 10. 5 mg/dL [facility] Chloride [Moles/Vol] 103 mmol/L 98 - 10 8 mmol/L [facility] CO2 [Moles/Vol] 26 mmol/L 21 - 31 mmol/L [facility] Creatinine [Mass/Vol] 0.63 mg/dL 0.50 - 1.20 mg/dL [facility] eGFR, CKD-EPI, Female - PINF [facility] Comment on above: Reported eGFR is bas ed on the CKD-EPI 2020 equation using creatinine, age, and sex. Glucose [Mass/Vol] 113 mg/dL High 70 - 99 mg/dL [facility] Interpretation and review of laboratory results Abnormal [facility] Osmolality Calc [Osmolality] 284 [facility] Potassium [Moles/Vol] 3.5 mmol/L 3.5 - 5.0 mmol/L [facility] Sodium [Moles/Vol] 137 mmol/L 135 - 145 mmol/L [facility] Urea nitrogen [Mass/Vol] 4 mg/dL Low 7 - 25 mg/d L [facility] Urea nitrogen/Creatinine [Mass ratio] 6 mg/mg [facility] CBC,PLATELETSon 01-19-2023 Erythrocyte distribution width (RBC) [Ratio] 12.2 % 10.8 - 14.9 % [facility] Hematocrit (Bld) [Volume fraction] 28.3 % Low 34.9 - 44.3 % [facility] Hemoglobin (Bld) [Mass/Vol] 9.6 g/dL Low 11.4 - 15.2 g/dL [facility] Interpretation and review of laboratory results Abnormal [facility] MCH (RBC) [Entitic mass] 30.1 pg 25. 9 - 33.9 pg [facility] MCHC (RBC) [Mass/Vol] 33.9 g/dL 31.4 - 35.9 g/dL [facility] MCV (RBC) [Entitic vol] 88.7 fL 79.6 - 97.7 fL [facility] Platelet mean volume (Bld) [Entitic vol] [facility] Comment on above: Not measured Platelets (Bld) [#/Vol] 103 10*3/uL Low 150 - 393 K/uL [facility] RBC (Bld) [#/Vol] 3.19 10*6/uL Low [facility] WBC (Bld) [#/Vol] 7.29 10*3/uL 3.99 - 11. 19 K/uL [facility] BASIC METABOLIC PANELon 01-05 Anion gap [Moles/Vol] 11 mmol/L 7 - 17 mmol/L [facility] Calcium [Mass/Vol] 8.6 mg/dL 8.6 - 10. 5 mg/dL [facility] Chloride [Moles/Vol] 109 mmol/L High 98 - 10 8 mmol/L [facility] CO2 [Moles/Vol] 25 mmol/L 21 - 31 mmol/L [facility] Creatinine [Mass/Vol] 0.65 mg/dL 0.50 - 1.20 mg/dL [facility] eGFR, CKD-EPI, Female - PINF [facility] Comment on above: Reported eGFR is bas ed on the CKD-EPI 2020 equation using creatinine, age, and sex. Glucose [Mass/Vol] 103 mg/dL High 70 - 99 mg/dL [facility] Interpretation and review of laboratory results Abnormal [facility] Osmolality Calc [Osmolality] 293 [facility] Potassium [Moles/Vol] 4.1 mmol/L 3.5 - 5.0 mmol/L [facility] Sodium [Moles/Vol] 141 mmol/L 135 - 145 mmol/L [facility] Urea nitrogen [Mass/Vol] 6 mg/dL Low 7 - 25 mg/d L [facility] Urea nitrogen/Creatinine [Mass ratio] 9 mg/mg [facility] CBC,PLATELETSon 01-18-2023 Erythrocyte distribution width (RBC) [Ratio] 12.2 % 10.8 - 14.9 % [facility] Hematocrit (Bld) [Volume fraction] 28.9 % Low 34.9 - 44.3 % [facility] Hemoglobin (Bld) [Mass/Vol] 9.9 g/dL Low 11.4 - 15.2 g/dL [facility] Interpretation and review of laboratory results Abnormal [facility] MCH (RBC) [Entitic mass] 31.3 pg 25. 9 - 33.9 pg [facility] MCHC (RBC) [Mass/Vol] 34.3 g/dL 31.4 - 35.9 g/dL [facility] MCV (RBC) [Entitic vol] 91.5 fL 79.6 - 97.7 fL [facility] Platelet mean volume (Bld) [Entitic vol] [facility] Comment on above: Not measured Platelets (Bld) [#/Vol] 135 10*3/uL Low 150 - 393 K/uL [facility] RBC (Bld) [#/Vol] 3.16 10*6/uL Low [facility] WBC (Bld) [#/Vol] 6.71 10*3/uL 3.99 - 11. 19 K/uL [facility] ABORH TYPE RECONFIRMATIONon 01-17-2023 ABO/RH(D) TYPE Negative [facility] Comment on above: @01/17/23 08:37 by K M1: [facility] ARTERIAL BLOOD GAS (FULL SHAH EL)on 01-17-2023 Base excess Calc (Bld) [Moles/Vol] -2.6000 mmol/L -3.0 - 3.0 mmol/L [facility] Calcium.ionized (Bld) [Mass/Vol] 4.95 mg/dL 4.60 - 5.30 mg/dL [facility] Carboxyhemoglobin (Bld) [Mass fraction] 1.1 % NINF - 1.5 % [facility] CO2 (Bld) [Partial pressure] 35 mm[Hg] [facility] Glucose [Mass/Vol] 128 mg/dL High 70 - 99 mg/dL [facility] HCO3 (Bld) [Moles/Vol] 21 mmol/L Low 22 - 28 mmol/L [facility] Hematocrit (Bld) [Volume fraction] 35.1 % 34.2 - 45.6 % [facility] Hemoglobin (Bld) [Mass/Vol] 11.4 g/dL 11.4 - 15.2 g/dL [facility] Interpretation and review of laboratory results Abnormal [facility] Lactate [Moles/Vol] 1.9 mmol/L High 0.5 - 1. 6 mmol/L [facility] Methemoglobin (Bld) [Mass fraction] 1.0 % [facility] - 1.5 % [facility] Oxygen (Bld) [Partial pressure] 234 mm[Hg] High [facility] Oxygen saturation in Blood 100 % High 94 - 98 % [facility] Oxyhemoglobin 98 % 94 - 98 % [facility] pH (Bld) 7.40 [pH] 7.35 - 7.45 [facility] Potassium [Moles/Vol] 4.0 mmol/L 3.5 - 5.0 mmol/L [facility] Sodium [Moles/Vol] 132 mmol/L Low 135 - 145 mmol/L [facility] Specimen source Nom (Unsp spec) Arterial [facility] Base excess Calc (Bld) [Moles/Vol] -3.8000 mmol/L Low -3.0 - 3.0 mmol/L [facility] Calcium.ionized (Bld) [Mass/Vol] 4.52 mg/dL Low 4.60 - 5.30 mg/dL [facility] Carboxyhemoglobin (Bld) [Mass fraction] 1.3 % NINF - 1.5 % [facility] CO2 (Bld) [Partial pressure] 36 mm[Hg] [facility] Glucose [Mass/Vol] 119 mg/dL High 70 - 99 mg/dL [facility] HCO3 (Bld) [Moles/Vol] 20 mmol/L Low 22 - 28 mmol/L [facility] Hematocrit (Bld) [Volume fraction] 31.9 % Low 34.2 - 45.6 % [facility] Hemoglobin (Bld) [Mass/Vol] 10.3 g/dL Low 11.4 - 15.2 g/dL [facility] Interpretation and review of laboratory results Abnormal [facility] Lactate [Moles/Vol] 1.3 mmol/L 0.5 - 1. 6 mmol/L [facility] Methemoglobin (Bld) [Mass fraction] 1.0 % NINF - 1.5 % [facility] Oxygen (Bld) [Partial pressure] 235 mm[Hg] High [facility] Oxygen saturation in Blood 100 % High 94 - 98 % [facility] Oxyhemoglobin 98 % 94 - 98 % [facility] pH (Bld) 7.37 [pH] 7.35 - 7.45 [facility] Potassium [Moles/Vol] 3.8 mmol/L 3.5 - 5.0 mmol/L [facility] Sodium [Moles/Vol] 135 mmol/L 135 - 145 mmol/L [facility] Specimen source Nom (Unsp spec) Arterial [facility] Base excess Calc (Bld) [Moles/Vol] -2.6000 mmol/L -3.0 - 3.0 mmol/L [facility] Calcium.ionized (Bld) [Mass/Vol] 4.41 mg/dL Low 4.60 - 5.30 mg/dL [facility] Carboxyhemoglobin (Bld) [Mass fraction] 1.3 % NINF - 1.5 % [facility] CO2 (Bld) [Partial pressure] 36 mm[Hg] [facility] Glucose [Mass/Vol] 106 mg/dL High 70 - 99 mg/dL [facility] HCO3 (Bld) [Moles/Vol] 21 mmol/L Low 22 - 28 mmol/L [facility] Hematocrit (Bld) [Volume fraction] 36.2 % 34.2 - 45.6 % [facility] Hemoglobin (Bld) [Mass/Vol] 11.7 g/dL 11.4 - 15.2 g/dL [facility] Interpretation and review of laboratory results Abnormal [facility] Lactate [Moles/Vol] 1.1 mmol/L 0.5 - 1. 6 mmol/L [facility] Methemoglobin (Bld) [Mass fraction] 1.0 % NINF - 1.5 % [facility] Oxygen (Bld) [Partial pressure] 231 mm[Hg] High [facility] Oxygen saturation in Blood 100 % High 94 - 98 % [facility] Oxyhemoglobin 98 % 94 - 98 % [facility] pH (Bld) 7.39 [pH] 7.35 - 7.45 [facility] Potassium [Moles/Vol] 3.7 mmol/L 3.5 - 5.0 mmol/L [facility] Sodium [Moles/Vol] 136 mmol/L 135 - 145 mmol/L [facility] Specimen source Nom (Unsp spec) Arterial [facility] ARTERIAL BLOOD GAS (FULL SHAH EL)Ordered By: Nadiya Dutta on 01-17-2023 Base excess Calc (Bld) [Moles/Vol] -2.5000 mmol/L -3.0 - 3.0 mmol/L [facility] Calcium.ionized (Bld) [Mass/Vol] 4.58 mg/dL Low 4.60 - 5.30 mg/dL [facility] Carboxyhemoglobin (Bld) [Mass fraction] 0.9 % NINF - 1.5 % [facility] CO2 (Bld) [Partial pressure] 38 mm[Hg] [facility] Glucose [Mass/Vol] 129 mg/dL High 70 - 99 mg/dL [facility] HCO3 (Bld) [Moles/Vol] 22 mmol/L 22 - 28 mmol/L [facility] Hematocrit (Bld) [Volume fraction] 35.5 % 34.2 - 45.6 % [facility] Hemoglobin (Bld) [Mass/Vol] 11.5 g/dL 11.4 - 15.2 g/dL [facility] Interpretation and review of laboratory results Abnormal [facility] [facility] Lactate [Moles/Vol] 1.2 mmol/L 0.5 - 1. 6 mmol/L [facility] Methemoglobin (Bld) [Mass fraction] 1.0 % NINF - 1.5 % [facility] Oxygen (Bld) [Partial pressure] 262 mm[Hg] High [facility] Oxygen saturation in Blood 100 % High 94 - 98 % [facility] Oxyhemoglobin 98 % 94 - 98 % [facility] pH (Bld) 7.38 [pH] 7.35 - 7.45 [facility] Potassium [Moles/Vol] 3.6 mmol/L 3.5 - 5.0 mmol/L [facility] Sodium [Moles/Vol] 135 mmol/L 135 - 145 mmol/L [facility] Specimen source Nom (Unsp spec) Arterial [facility] BETA HCG, URINE (POC DEVICE) on 01-17-2023 Beta HCG ( test) Ql (U) Negative Negative [facility] Interpretation and review of laboratory results Normal [facility] Test performed at address of the patient encounter. [facility] CARDIAC RHYTHM (SCANNED)on 03-19-2022 [facility] No Panel Informationon 01-17 ABO/RH(D) TYPE Negative [facility] BLOOD COMPONENT TYPE Plasma, Thawed [facility] EXPIRATION DATE [id number] [facility] Product ABO/RH(D) Positive [facility] Product ABO/RH(D) NUMBER 5100 [facility] PRODUCT CODE [id number] [facility] UNIT STATUS released [facility] ABO/RH(D) TYPE Negative [facility] BLOOD COMPONENT TYPE Red Cells, Leukoreduced [facility] EXPIRATION DATE [id number] [facility] Product ABO/RH(D) Negative [facility] Product ABO/RH(D) NUMBER 9500 [facility] PRODUCT CODE [id number] [facility] UNIT STATUS transfused [facility] UNIT STATUS released [facility] PREPARE TO TRANSFUSE PLASMAo n 01-17-2023 UNIT NUMBER [id number] [facility] UNIT NUMBER [id number] [facility] UNIT NUMBER [id number] [facility] UNIT NUMBER [id number] [facility] PREPARE TO TRANSFUSE RED BLO OD CELLSon 01-17-2023 PRODUCT CODE [id number] [facility] UNIT NUMBER [id number] [facility] UNIT NUMBER [id number] [facility] UNIT NUMBER [id number] [facility] UNIT NUMBER [id number] [facility] TRANSFUSE OR RED BLOOD CELLS on 01-17-2023 [facility] TRANSFUSE OR RED BLOOD CELLS Ordered By: Edda Lal on 01-17-2023 [facility] Work Phone: CBC AND ELECTRONIC DIFFon Basophils (Bld) [#/Vol] K/uL 0.00 - 0.15 K/uL [facility] Basophils/100 WBC (Bld) 0.5 % [place] Differential cell count method Nom (Bld) Electronic Differential [facility] Eosinophils (Bld) [#/Vol] 0.04 10*3/uL 0. 00 - 0.42 K/uL [facility] Eosinophils/100 WBC (Bld) 0.7 % [facility] Erythrocyte distribution width (RBC) [Ratio] 12.0 % 10.8 - 14.9 % [facility] Hematocrit (Bld) [Volume fraction] 43.4 % 34.9 - 44.3 % [facility] Hemoglobin (Bld) [Mass/Vol] 14.0 g/dL 11.4 - 15.2 g/dL [facility] Immature granulocytes (Bld) [#/Vol] K/uL NINF - 0.08 K/uL [facility] Immature granulocytes/100 WBC (Bld) 0.4 % [facility] Lymphocytes (Bld) [#/Vol] 1.69 10*3/uL 1. 16 - 3.51 K/uL [facility] Lymphocytes/100 WBC (Bld) 30.9 % [facility] MCH (RBC) [Entitic mass] 30.3 pg 25. 9 - 33.9 pg [facility] MCHC (RBC) [Mass/Vol] 32.3 g/dL 31.4 - 35.9 g/dL [facility] MCV (RBC) [Entitic vol] 93.9 fL 79.6 - 97.7 fL [facility] Monocytes (Bld) [#/Vol] 0.40 10*3/uL 0.22 - 0.87 K/uL [facility] Monocytes/100 WBC (Bld) 7.3 % [place] Neutrophils (Bld) [#/Vol] 3.29 10*3/uL 1. 64 - 7.28 K/uL [facility] Nucleated RBC/100 WBC (Bld) [Ratio] 0.0 % [facility] Platelet mean volume (Bld) [Entitic vol] 10.7 fL 8.5 - 12.2 fL [facility] Platelets (Bld) [#/Vol] 193 10*3/uL 150 - 393 K/uL [facility] RBC (Bld) [#/Vol] 4.62 10*6/uL [facility] Segmented neutrophils/100 WBC (Bld) 60.2 % [facility] WBC (Bld) [#/Vol] 5.47 10*3/uL 3.99 - 11. 19 K/uL [facility] CHEM 6 (LYTES, BUN CREA)on 1 Anion gap [Moles/Vol] 11 mmol/L 7 - 17 mmol/L [facility] Chloride [Moles/Vol] 106 mmol/L 98 - 10 8 mmol/L [facility] CO2 [Moles/Vol] 25 mmol/L 21 - 31 mmol/L [facility] Creatinine [Mass/Vol] 0.72 mg/dL 0.50 - 1.20 mg/dL [facility] eGFR, CKD-EPI, Female - PINF [facility] Comment on above: Reported eGFR is bas ed on the CKD-EPI 2020 equation using creatinine, age, and sex. Potassium [Moles/Vol] 4.1 mmol/L 3.5 - 5.0 mmol/L [facility] Sodium [Moles/Vol] 138 mmol/L 135 - 145 mmol/L [facility] Urea nitrogen [Mass/Vol] 11 mg/dL 7 - 25 mg/d L [facility] Urea nitrogen/Creatinine [Mass ratio] 15 mg/mg [facility] EXTRA LIGHT BLUE TOP DOUBLE SPINon 01-03-2023 Dummy LRR - Route to Double Spin Received [facility] HCG ( test) Ql (U)O rdered By: Adriana Young on 01-03-2023 Beta HCG ( test) Ql Negative Negative [facility] Interpretation and review of laboratory results Normal [facility] NICOTINE SCREEN URINEOrdered By: Kami Andre on 01-03-2023 Cotinine (U) [Mass/Vol] Not detected [facility] Interpretation and review of laboratory results Normal [facility] PREPARE TO TRANSFUSE OR RED BLOOD CELLSon 01-03-2023 [facility] PROTIME-INRon 01-03-2023 INR Coag (Bld) [Relative time] 1.0 {INR} 0.9 - 1.1 [facility] Interpretation and review of laboratory results Normal [facility] PT Coag (PPP) [Time] 12.7 s [facility] PTT W/MIXING STUDY PERF ONLY Ordered By: Nadiya Dutta on 01-03-2023 aPTT Coag (PPP) [Time] 28.5 s [facility] PTT Mixing Study With Normal Plasma Not Indicated [facility] TYPE AND SCREEN - PREADMISSI ONon 01-03-2023 ABO/RH(D) TYPE Negative [facility] Comment on above: @01/03/23 22:07 by F T04: [facility] URINALYSIS REFLEX TO CULTURE PERFORMABLEon 01-03-2023 Amorphous sediment LM Ql (Urine sed) <25% = Slight Abnormal (none) [facility] Appearance (U) Clear Clear [facility] Bacteria LM Ql (Urine sed) TRACE Abnormal ABSENT [facility] Color (U) Yellow Yellow [facility] Epithelial cells.squamous LM Ql (Urine sed) 0-2/hpf 0-2/hpf, 3-5/hpf = 1+ [facility] Glucose Test strip (U) [Mass/Vol] Negative Negative [facility] Interpretation and review of laboratory results Abnormal [facility] Ketones (U) [Mass/Vol] Negative Negative [facility] Leukocyte esterase Test strip Ql (U) Negative Negative [facility] Nitrite Ql (U) Negative Negative [facility] pH (U) 7.0 [pH] 5.0 - 7.0 [facility] Protein (U) [Mass/Vol] Negative Negative [facility] RBC (U) [#/Vol] Negative Negative [facility] RBC LM.HPF (Urine sed) [#/Area] 0-2 [facility] Specific gravity (U) [Rel density] 1.025 1.001 - 1.035 [facility] Urobilinogen (U) [Mass/Vol] 0.2 E.U./dL 0.2 E.U/dL, 1.0 E.U/dL [facility] WBC LM.HPF (Urine sed) [#/Area] 0 - 5 [facility] XR Chest PA and Lateralon IMPRESSION: No acute cardiopulmonary findings I personally viewed and interpreted these images and I have reviewed and approved this report. OLOGY EXAM: XR CHEST PA AND LATERAL, 01/03/2023 11:47 AM COMPARISON: No prior studies available for comparison. CLINICAL INDICATIONS: preadmission RELEVANT CLINICAL HISTORY: Z01.818:Preop exam for internal medicine M40.204:Kyphosis of thoracic region, unspecified kyphosis type FINDINGS: (Adequate technique) Implanted Devices: None Lungs: Clear, without mass, interstitial disease, or consolidation. Pleural Spaces: No pleural effusion. No pneumothorax. Mediastinum and Justyna: Normal Cardiac silhouette and great vessels: Normal heart size. Unremarkable aorta. Chest Wall: Normal RADIOLOGY Tod Quiroga MD - 01/03/2023 EXAM: XR CHEST PA AND LATERAL, 01/03/2023 11:47 AM COMPARISON: No prior studies available for comparison. CLINICAL INDICATIONS: preadmission RELEVANT CLINICAL HISTORY: Z01.818:Preop exam for internal medicine M40.204:Kyphosis of thoracic region, unspecified kyphosis type FINDINGS: (Adequate technique) Implanted Devices: None Lungs: Clear, without mass, interstitial disease, or consolidation. Pleural Spaces: No pleural effusion. No pneumothorax. Mediastinum and Justyna: Normal Cardiac silhouette and great vessels: Normal heart size. Unremarkable aorta. Chest Wall: Normal IMPRESSION IMPRESSION: No acute cardiopulmonary findings I personally viewed and interpreted these images and I have reviewed and approved this report. [facility] Radiology Study observation (narrative) [facility] XR Chest PA and LateralOrder ed By: Tod Quiroga on 01-03-2023 [facility] Work Phone: No Panel Informationon 11-22 IMPRESSION: No acute abnormality. Stable accentuated thoracic kyphosis. No significant scoliosis or pelvic tilt. OLOGY EXAM: XR SPINE SCOLIOSIS 2/3 VIEWS, XR SPINE THORACIC 2 VIEWS, XR SPINE LUMBOSACRAL 5 VIEWS, 11/22/2022 13:01 PM (accession [id number]), 11/22/2022 13:02 PM (accession [id number]), 11/22/2022 13:02 PM (accession [id number]) COMPARISON: Scoliosis survey April 12, 2022 CLINICAL HISTORY: , pain M40.04:Postural kyphosis of thoracic region (accession [id number]), M40.204:Kyphosis of thoracic region, unspecified kyphosis type (accession [id number]), M40.204:Kyphosis of thoracic region, unspecified kyphosis type (accession [id number]) FINDINGS: 3 images of the thoracic spine: 12 rib-bearing thoracic type vertebral bodies. Vertebral body height is preserved. Accentuated thoracic kyphosis. Disc spaces appear preserved. 5 images of the lumbar spine including obliques: 5 lumbar type vertebral bodies. Vertebral body height and alignment is preserved. Facet joints are anatomically aligned. Disc spaces are preserved. 2 image scoliosis survey: 12 rib-bearing thoracic vertebral bodies and 5 lumbar vertebral bodies. Accentuated kyphosis of the thoracic spine appears unchanged. No significant scoliotic curvature or pelvic tilt identified. RADIOLOGY Fantasma Bowles MD - 11/22/2022 EXAM: XR SPINE SCOLIOSIS 2/3 VIEWS, XR SPINE THORACIC 2 VIEWS, XR SPINE LUMBOSACRAL 5 VIEWS, 11/22/2022 13:01 PM (accession [id number]), 11/22/2022 13:02 PM (accession [id number]), 11/22/2022 13:02 PM (accession [id number]) COMPARISON: Scoliosis survey April 12, 2022 CLINICAL HISTORY: , pain M40.04:Postural kyphosis of thoracic region (accession [id number]), M40.204:Kyphosis of thoracic region, unspecified kyphosis type (accession [id number]), M40.204:Kyphosis of thoracic region, unspecified kyphosis type (accession [id number]) FINDINGS: 3 images of the thoracic spine: 12 rib-bearing thoracic type vertebral bodies. Vertebral body height is preserved. Accentuated thoracic kyphosis. Disc spaces appear preserved. 5 images of the lumbar spine including obliques: 5 lumbar type vertebral bodies. Vertebral body height and alignment is preserved. Facet joints are anatomically aligned. Disc spaces are preserved. 2 image scoliosis survey: 12 rib-bearing thoracic vertebral bodies and 5 lumbar vertebral bodies. Accentuated kyphosis of the thoracic spine appears unchanged. No significant scoliotic curvature or pelvic tilt identified. IMPRESSION IMPRESSION: No acute abnormality. Stable accentuated thoracic kyphosis. No significant scoliosis or pelvic tilt. [facility] No Panel InformationOrdered By: Fantasma Bowles on 11-22-2022 [facility] Work Phone: XR Spine Lumbar and Sacrum 5 [facility] 11-22-2022 [facility] 11-22-[facility]narrative[facility]TOES WO IVCON RIGHT on 09-10-2022 [facility] VITAMIN D 25 HYDROXYon 08-17 25-hydroxyvitamin D3 [Mass/Vol] 28.7 ng/mL Low 31.0 - 80.0 ng/mL [facility] XR FOOT GENERAL 3V AP/LAT/OB L RIGHTon 08-16-2022 [facility] Absolute lymphocyte countOrd ered By: Dr. Emanuel on 07-12-2022 Lymphocytes Auto (Unsp spec) [#/Vol] 1.63 10*3/uL 0.83-4.51 [facility] Basophil percentageOrdered B y: Dr. Emanuel on 07-12-2022 Basophils/100 WBC (Bld) 0.2 % 0-1 [facility] Bilirubin [Mass/Vol] 0.40 mg/dL 0.20-1.00 [facility] Comment on above: For patients on eltr ombopag therapy, use of Dimension Cut Off TBIL is not recommended. Chloride [Moles/Vol] 108 mmol/L 98-107 [facility] Eosinophils/100 WBC (Bld) 1.3 % 0-5 [facility] Glucose [Mass/Vol] 114 mg/dL 74-106 [facility] Comment on above: Fasting Glucose resu lt from 100 to 125 mg/dL suggests IMPAIRED HOMEOSTASIS per A.D.A. criteria. Neutrophils (Bld) [#/Vol] 3.4 10*3/uL 2.0-7.7 [facility] Neutrophils/100 WBC (Bld) 62.2 % 47-70 [facility] Potassium [Moles/Vol] 4.0 mmol/L 3.5-5.1 [facility] Protein [Mass/Vol] 6.2 g/dL 6.4-8.2 [facility] Sodium [Moles/Vol] 140 mmol/L 136-145 [facility] WBC (Bld) [#/Vol] 5.5 10*3/uL 4.4-11.0 [facility] Basophil percentage 0 SEEN /hpf 0-5 [facility] Bilirubin Test strip Ql (U)O rdered By: Dr. Emanuel on 07-12-2022 Bilirubin Ql (U) Negative Negative [facility] Blood erythrocytes count (nu mber/volume)Ordered By: Dr. Emanuel on 07-12-2022 RBC (Bld) [#/Vol] 4.38 10*6/uL 4.2-5.4 [facility] Blood hemoglobin measurement (mass/volume)Ordered By: Dr. Emanuel on 07-12-2022 Hemoglobin (Bld) [Mass/Vol] 13.6 g/dL 12.0-15.0 [facility] Blood lymphocytes/100 leukoc ytesOrdered By: Dr. Emanuel on 07-12-2022 Lymphocytes/100 WBC (Bld) 29.9 % 19-41 [facility] Blood monocytes/100 leukocyt esOrdered By: Dr. Emanuel on 07-12-2022 Monocytes/100 WBC (Bld) 6.2 % 0-10 [facility] Blood platelet mean volumeOr dered By: Dr. Emanuel on 07-12-2022 Platelet mean volume (Bld) [Entitic vol] 10.0 fL 6.2-12.0 [facility] Determination of erythrocyte mean corpuscular volume (MCV)Ordered By: Dr. Emanuel on 07-12-2022 MCV (RBC) [Entitic vol] 92.7 fL 81-99 [facility] Hematocrit Auto (Bld) [Volum e fraction]Ordered By: Dr. Emanuel on 07-12-2022 Hematocrit (Bld) [Volume fraction] 40.6 % 37-47 [facility] Ketones Test strip Ql (U)Ord ered By: Dr. Emanuel on 07-12-2022 Ketones Ql (U) Negative Negative [facility] Laboratory - Chemistry and C hemistry - challengeOrdered By: Dr. Emanuel on 07-12-2022 ALP [Catalytic activity/Vol] 52 U/L 45-117 [facility] ALT [Catalytic activity/Vol] 18 U/L 13-56 [facility] CO2 [Moles/Vol] 26.0 mmol/L 21.0-32.0 [facility] Globulin (S) [Mass/Vol] 2.6 g/dL 2.2-4.2 [facility] Lipase [Catalytic activity/Vol] 16 U/L 13-75 [facility] Comment on above: Please note:LIPASE r evised reference range effective 22. New Lipase methodology. Expected to produce lower values than the previous assay method. NEW Reference Range: 13 - 75 U/L Urea nitrogen/Creatinine [Mass ratio] 21.5 mg/mg 10-20 [facility] HCG ( test) Ql (U) Negative [facility] Comment on above: Very dilute urine sp ecimens, as indicated by a low specificgravity, may not contain medical customer service representative levels of hCG. If is still suspected, a first morning urinespecimen should be collected 48 hours later and tested. Laboratory - Hematology and Cell countsOrdered By: Dr. Emanuel on 07-12-2022 Erythrocyte distribution width (RBC) [Entitic vol] 40.1 fL 35.1-43.9 [facility] Erythrocyte distribution width (RBC) [Ratio] 11.8 % 11.6-14.6 [facility] Immature granulocytes/100 WBC (Bld) 0.200 % 0.0-0.9 [facility] Comment on above: IG% - Immature Granu locytes (promyelocytes, myelocytes and metamyelocytes) > 1% indicates that a LEFT SHIFT is Present. MCH (RBC) [Entitic mass] 31.1 pg 27.0-32.0 [facility] Nucleated RBC/100 WBC (Bld) [Ratio] 0 % 0-5 [facility] MCHC Auto (RBC) [Mass/Vol]Or dered By: Dr. Emanuel on 07-12-2022 MCHC (RBC) [Mass/Vol] 33.5 g/dL 32-36 [facility] Mucus LM Ql (Urine sed)Order ed By: Dr. Emanuel on 07-12-2022 Mucus Ql (Urine sed) 0 SEEN /hpf [facility] Nitrite Test strip Ql (U)Ord ered By: Dr. Emanuel on 07-12-2022 Nitrite Ql (U) Negative Negative [facility] No Panel InformationOrdered By: Dr. Emanuel on 07-12-2022 Estimated Creatinine Clearance Calc 157.61 ml/min [facility] Estimated GFR (MDRD) Amer 172 mL/min >60 [facility] Comment on above: GFR Calc Estimated GFR (MDRD) Non-Af Amer 142 mL/min >60 [facility] Comment on above: Non- GFR Calc Platelets bldOrdered By: Dr. Emanuel on 07-12-2022 Platelets (Bld) [#/Vol] 155 10*3/uL 150-450 [facility] Protein Test strip Ql (U)Ord ered By: Dr. Emanuel on 07-12-2022 Protein Ql (U) Negative Negative [facility] Serum or plasma albumin bina urement (mass/volume)Ordered By: Dr. Emanuel on 07-12-2022 Albumin [Mass/Vol] 3.6 g/dL 3.2-5.0 [facility] Serum or plasma albumin/glob ulin mass ratioOrdered By: Dr. Emanuel on 07-12-2022 Albumin/Globulin [Mass ratio] 1.4 {ratio} 0.9-2.4 [facility] Serum or plasma calcium bina urement (mass/volume)Ordered By: Dr. Emanuel on 07-12-2022 Calcium [Mass/Vol] 8.8 mg/dL 8.5-10.1 [facility] Serum or plasma creatinine m easurement (mass/volume)Ordered By: Dr. Emanuel on 07-12-2022 Creatinine [Mass/Vol] 0.56 mg/dL 0.55-1.02 [facility] Comment on above: The validity of the calculated GFR & GFRAA in patients over 70 years has not been determined. Clinical correlation is essential. Serum or plasma urea nitroge n measurement (mass/volume)Ordered By: Dr. Emanuel on 07-12-2022 Urea nitrogen [Mass/Vol] 12 mg/dL 7-18 [facility] Squamous epithelial cells de tection in urine sediment by light microscopyOrdered By: Dr. Emanuel on 07-12-2022 Epithelial cells.squamous LM Ql (Urine sed) 0 SEEN /hpf 5-10 [facility] Thin prep Papanicolaou smear with manual screeningOrdered By: Dr. Emanuel on 07-12-2022 Thin prep Papanicolaou smear with manual screening 13 U/L 15-37 [facility] Thin prep Papanicolaou smear with manual screening 6 5-15 [facility] Urine blood detectionOrdered By: Dr. Emanuel on 07-12-2022 RBC Ql (U) Negative Negative [facility] RBC Ql (U) 0 SEEN /hpf 0-5 [facility] Urine clarityOrdered By: Dr. Emanuel on 07-12-2022 Clarity (U) Clear Clear [facility] Urine color determinationOrd ered By: Dr. Emanuel on 07-12-2022 Color (U) Yellow Yellow [facility] Urine glucose detectionOrder ed By: Dr. Emanuel on 07-12-2022 Glucose Ql (U) Normal mg/dl Normal [facility] Urine leukocyte esterase det ection by dipstickOrdered By: Dr. Emanuel on 07-12-2022 Leukocyte esterase Test strip Ql (U) Negative Negative [facility] Urine pHOrdered By: Dr. Emanuel o n 07-12-2022 pH (U) 6.5 [pH] 5.0 - 8.0 [facility] Urine sediment bacteria coun t by microscopy (number/high power field)Ordered By: Dr. Emanuel on 07-12-2022 Bacteria LM.HPF (Urine sed) [#/Area] 3 /[HPF] None Seen [facility] Urine specific gravity measu rementOrdered By: Dr. Emanuel on 07-12-2022 Specific gravity (U) [Rel density] 1.015 1.002-1.030 [facility] Urobilinogen Auto test strip Ql (U)Ordered By: Dr. Emanuel on 07-12-2022 Urobilinogen Ql (U) 1 mg/dl Normal [facility] Cervical or vagninal specime n microscopic examination by cytology stain (reported asOrdered By: Elsi Waldrop on 06-07-2022 Cytology report Cyto stain Doc (Cvx/Vag) Comment . [facility] Comment on above: The Pap smear is a s creening test designed to aid in thedetection of premalignant and malignant conditions of theuterine cervix. It is not a diagnostic procedure andshould not be used as the sole means of detecting cervicalcancer. Both false-positive and false-negative reports dooccur. Chlamydia trachomatis rRNA d etection by probe and target amplification methodOrdered By: Elsi Waldrop on 06-07-2022 C. trachomatis rRNA ROGER+probe Ql (Unsp spec) Negative Negative [facility] Laboratory - CytologyOrdered By: Elsi Waldrop on 06-07-2022 Preschool Paraprofessional Cyto stain Nom (Cvx/Vag) [ID] Comment . [facility] Comment on above: Maria A Gutierrez, Cyto technologist (ASCP) Laboratory - Microbiology an d Antimicrobial susceptibilityOrdered By: Elsi Waldrop on 06-07-2022 N. gonorrhoeae DNA ROGER+probe Ql (Unsp spec) Negative Negative [facility] Comment on above: Performed at: =[address] [id number] Director: Pham Seymour MD, Phone: [phone] Laboratory - Miscellaneous t estsOrdered By: Elsi Waldrop on 06-07-2022 Service comment (Unsp spec) [Interp] Comment . [facility] Comment on above: This liquid based Th inPrep(R) pap test was screened withthe use of an image guided system. Service comment (Unsp spec) [Interp] . . [facility] No Panel InformationOrdered By: Elsi Waldrop on 06-07-2022 Human Papillomavirus Screen Comment . [facility] Comment on above: The HPV DNA reflex c esme were not met with this specimenresult therefore, no HPV testing was performed.Performed at: [address]Johan valdez, [place] [id number] Director: Pham Seymour MD, Phone: [phone] Pathology report final diagnosis Narrative Comment . [facility] Comment on above: NEGATIVE FOR INTRAEP ITHELIAL LESION OR MALIGNANCY.PREDOMINANCE OF COCCOBACILLI CONSISTENT WITH SHIFT IN VAGINAL DARVIN ISPRESENT. XR Cervical spine AP and Lat eral and obliqueon 04-22-2022 IMPRESSION: No acute radiographic abnormalities seen in the cervical spine. Register Clerk: Franchisee Gladiator Transcribe Date/Time: Apr 22 2022 3:09P Dictated by : PREMA SHORT MD This examination was interpreted and the report reviewed and electronically signed by: PREMA SHORT MD on Apr 22 2022 3:10PM [facility] DIVISION OF RADIOLOGY * * *Final Report* * * DATE OF EXAM: Apr 20 2022 11:00AM WOX 5311 - XR CERVICAL 4V AP/LAT/OBL / PROCEDURE REASON: Fall from ladder, subsequent encounter * * * * Physician Interpretation * * * * EXAM TITLE: XR CERVICAL 4V AP/LAT/OBL EXAM DATE/TIME: 04/20/2022 11:00 AM COMPARISON: None. CLINICAL INDICATION/HISTORY: Fall. TECHNIQUE: AP, lateral and oblique views of the cervical spine are presented. FINDINGS: No acute fractures or subluxations are noted. The disc spaces are well preserved. There is no significant osteophyte formation. The neural foramina are patent. The prevertebral soft tissues are normal. DIVISION OF RADIOLOGY Provider, [facility] - 04/22/2022 * * *Final Report* * * DATE OF EXAM: Apr 20 2022 11:00AM WOX 5311 - XR CERVICAL 4V AP/LAT/OBL / PROCEDURE REASON: Fall from ladder, subsequent encounter * * * * Physician Interpretation * * * * EXAM TITLE: XR CERVICAL 4V AP/LAT/OBL EXAM DATE/TIME: 04/20/2022 11:00 AM COMPARISON: None. CLINICAL INDICATION/HISTORY: Fall. TECHNIQUE: AP, lateral and oblique views of the cervical spine are presented. FINDINGS: No acute fractures or subluxations are noted. The disc spaces are well preserved. There is no significant osteophyte formation. The neural foramina are patent. The prevertebral soft tissues are normal. IMPRESSION IMPRESSION: No acute radiographic abnormalities seen in the cervical spine. Register Clerk: JESSICA Transcribe Date/Time: Apr 22 2022 3:09P Dictated by : PREMA SHORT MD This examination was interpreted and the report reviewed and electronically signed by: PREMA SHORT MD on Apr 22 2022 3:10PM EST [facility] XR Lumbar spine AP and Later sudha 04-22-2022 IMPRESSION: No acute radiographic abnormalities seen in the lumbar spine. Register Clerk: [facility] Transcribe Date/Time: Apr 22 2022 3:11P Dictated by : PREMA SHORT MD This examination was interpreted and the report reviewed and electronically signed by: PREMA SHORT MD on Apr 22 2022 3:12PM EST DIVISION OF RADIOLOGY * * *Final Report* * * DATE OF EXAM: Apr 20 2022 11:00AM WOX 5229 - XR LUMBAR 2V AP/LAT / PROCEDURE REASON: Fall from ladder, subsequent encounter * * * * Physician Interpretation * * * * EXAM TITLE: XR LUMBAR 2V AP/LAT EXAM DATE/TIME: 04/20/2022 11:00 AM COMPARISON: None. CLINICAL INDICATION/HISTORY: Fall. TECHNIQUE: AP, lateral and cone down lateral views of the lumbar spine are presented. FINDINGS: There are five svy-ywq-lqzxeco lumbar vertebrae. No fracture or subluxations are noted. Mild right-sided curvature is noted. The disc spaces are well preserved. There is no significant osteophyte formation. Others: There is a T-shaped IUD in the pelvis. DIVISION OF RADIOLOGY Provider, [facility] [place] - 04/22/2022 * * *Final Report* * * DATE OF EXAM: Apr 20 2022 11:00AM WOX 5229 - XR LUMBAR 2V AP/LAT / PROCEDURE REASON: Fall from ladder, subsequent encounter * * * * Physician Interpretation * * * * EXAM TITLE: XR LUMBAR 2V AP/LAT EXAM DATE/TIME: 04/20/2022 11:00 AM COMPARISON: None. CLINICAL INDICATION/HISTORY: Fall. TECHNIQUE: AP, lateral and cone down lateral views of the lumbar spine are presented. FINDINGS: There are five mnh-iyq-wzlspvu lumbar vertebrae. No fracture or subluxations are noted. Mild right-sided curvature is noted. The disc spaces are well preserved. There is no significant osteophyte formation. Others: There is a T-shaped IUD in the pelvis. IMPRESSION IMPRESSION: No acute radiographic abnormalities seen in the lumbar spine. Register Clerk: [facility] Transcribe Date/Time: Apr 22 2022 3:11P Dictated by : PREMA SHORT MD This examination was interpreted and the report reviewed and electronically signed by: PREMA SHORT MD on Apr 22 2022 3:12PM EST [facility] XR Lumbar spine AP and Later alOrdered By: [facility] Provider on 04-22-2022 [facility] XR Thoracic spine AP and Lat eralon 04-22-2022 IMPRESSION: No acute radiographic abnormalities seen in the thoracic spine. Register Clerk: [facility] Transcribe Date/Time: Apr 22 2022 3:12P Dictated by : PREMA SHORT MD This examination was interpreted and the report reviewed and electronically signed by: PREMA SHORT MD on Apr 22 2022 3:13PM EST DIVISION OF RADIOLOGY * * *Final Report* * * DATE OF EXAM: Apr 20 2022 11:00AM WOX 5262 - XR THORACIC 2V AP/LAT / PROCEDURE REASON: Fall from ladder, subsequent encounter * * * * Physician Interpretation * * * * EXAM TITLE: XR THORACIC 2V AP/LAT EXAM DATE/TIME: 04/20/2022 11:00 AM COMPARISON: None. CLINICAL INDICATION/HISTORY: Fall. TECHNIQUE: AP, swimmer's and lateral views of the thoracic spine are presented FINDINGS: No fractures or subluxations are noted. The disc spaces are well preserved. There is no paraspinal mass or bony destructive process. DIVISION OF RADIOLOGY Provider, [facility] [place] - 04/22/2022 * * *Final Report* * * DATE OF EXAM: Apr 20 2022 11:00AM WOX 5262 - XR THORACIC 2V AP/LAT / PROCEDURE REASON: Fall from ladder, subsequent encounter * * * * Physician Interpretation * * * * EXAM TITLE: XR THORACIC 2V AP/LAT EXAM DATE/TIME: 04/20/2022 11:00 AM COMPARISON: None. CLINICAL INDICATION/HISTORY: Fall. TECHNIQUE: AP, swimmer's and lateral views of the thoracic spine are presented FINDINGS: No fractures or subluxations are noted. The disc spaces are well preserved. There is no paraspinal mass or bony destructive process. IMPRESSION IMPRESSION: No acute radiographic abnormalities seen in the thoracic spine. Register Clerk: [facility] Transcribe Date/Time: Apr 22 2022 3:12P Dictated by : PREMA SHORT MD This examination was interpreted and the report reviewed and electronically signed by: PREMA SHORT MD on Apr 22 2022 3:13PM [facility] No Panel Informationon 04-20 Radiology Study observation (narrative) [facility] XR Thoracic and lumbar spine Views for scoliosison 04-12-2022 IMPRESSION: Kyphosis of the thoracic spine. No significant scoliotic curvature or pelvic tilt. OLOGY EXAM: XR SPINE SCOLIOSIS 2/3 VIEWS, 04/12/2022 15:18 PM COMPARISON: No prior studies available for comparison. CLINICAL INDICATIONS: pain RELEVANT CLINICAL HISTORY: M54.9:Chronic back pain, unspecified back location, unspecified back pain laterality G89.29:Chronic back pain, unspecified back location, unspecified back pain laterality Scoliosis & fl/ext; FINDINGS: 8 images obtained. Thoracolumbar spine: 12 rib-bearing thoracic vertebral bodies and 5 lumbar vertebral bodies are identified. No significant scoliotic curvature. There is exaggerated kyphosis of the thoracic spine measuring approximately 80 degrees from the superior endplate of T3 to the inferior endplate of T12 on the lateral view. No compression fracture or significant wedging of the vertebral bodies. Pelvic Tilt: There is no pelvic tilt. RADIOLOGY Geovanni Platt MD - 04/12/2022 EXAM: XR SPINE SCOLIOSIS 2/3 VIEWS, 04/12/2022 15:18 PM COMPARISON: No prior studies available for comparison. CLINICAL INDICATIONS: pain RELEVANT CLINICAL HISTORY: M54.9:Chronic back pain, unspecified back location, unspecified back pain laterality G89.29:Chronic back pain, unspecified back location, unspecified back pain laterality Scoliosis & fl/ext; FINDINGS: 8 images obtained. Thoracolumbar spine: 12 rib-bearing thoracic vertebral bodies and 5 lumbar vertebral bodies are identified. No significant scoliotic curvature. There is exaggerated kyphosis of the thoracic spine measuring approximately 80 degrees from the superior endplate of T3 to the inferior endplate of T12 on the lateral view. No compression fracture or significant wedging of the vertebral bodies. Pelvic Tilt: There is no pelvic tilt. IMPRESSION IMPRESSION: Kyphosis of the thoracic spine. No significant scoliotic curvature or pelvic tilt. [facility] Radiology Study observation (narrative) [facility] XR Thoracic and lumbar spine Views for scoliosisOrdered By: Geovanni Platt on 04-12-2022 [facility] Work Phone: C Urineon 04-29-2017 C Urine Final Report: Normal skin darvin isolated Normal [facility] Comment on above: Performed By: #### C [id number] ####MALACHI POC [id number] [place] [address] Amylaseon 04-27-2017 Amylase 114 Int._Unit/L Normal 25-125 [facility] Comment on above: Performed By: #### 2 [id number] ####MALACHI [address] [place] [address] Auto Diffon 04-27-2017 Basophils Auto #/vol (Bld) 0.0 E3/mcL Normal 0.0-0.2 [facility] Comment on above: Order Comment: Order Added by Discern Expert. Performed By: #### 2 [id number] ####MALACHI [address] [place] [address] Basophils/100 WBC Auto (Bld) 0.6 % Normal 0.0-2.0 [facility] Comment on above: Order Comment: Order Added by Discern Expert. Performed By: #### 2 [id number] ####MALACHI [address]Ex[address] [place] [address] Eos Absolute 0.1 E3/mcL Normal 0.0-0.7 [facility] Comment on above: Order Comment: Order Added by Discern Expert. Performed By: #### 2 [id number] ####MALACHI [address] [place] [address] Eosinophils/100 leukocytes 2.2 % Normal 0.0-11.0 [facility] Comment on above: Order Comment: Order Added by Discern Expert. Performed By: #### 2 [id number] ####MALACHI [address] [place] [address] Lymphocytes 2.5 E3/mcL Normal 1.2-3.4 [facility] Comment on above: Order Comment: Order Added by Discern Expert. Performed By: #### 2 [id number] ####MALACHI [address] [place] [address] Lymphocytes/100 leukocytes 45.1 % Normal 20.0-55.0 [facility] Comment on above: Order Comment: Order Added by Discern Expert. Performed By: #### 2 [id number] ####MALACHI [address] [place] [address] Beckham Absolute 0.5 E3/mcL Normal 0.0-0.7 [facility] Comment on above: Order Comment: Order Added by Discern Expert. Performed By: #### 2 [id number] ####MALACHI [address] [place] [address] Monocytes/100 leukocytes 9.5 % Normal 0.0-10.0 [facility] Comment on above: Order Comment: Order Added by Discern Expert. Performed By: #### 2 [id number] ####MALACHI [address] [place] [address] Neutro Absolute 2.4 E3/mcL Normal 1.4-6.5 [facility] Comment on above: Order Comment: Order Added by Discern Expert. Performed By: #### 2 [id number] ####MALACHI [address] [place] [address] Neutro Auto 42.6 % Normal 37.0-75.0 [facility] Comment on above: Order Comment: Order Added by Discern Expert. Performed By: #### 2 096875 ####MALACHI [address] [place] [address] CBC w/ Auto Diffon 02-21-201 8 Erythrocyte distribution width Auto Ratio (RBC) 12.8 % Normal 11.5-14.5 [facility] Comment on above: Performed By: #### 2 708489 ####MALACHI [address] [place] [address] Erythrocytes (RBC) 4.52 E6/mcL Normal 3.90-5.40 [facility] Comment on above: Performed By: #### 2 710387 ####MALACHI [address] [place] [address] Hematocrit (HCT) 40.3 % Normal 36.0-48.0 [facility] Comment on above: Performed By: #### 2 [id number] ####MALACHI [address] [place] [address] Hemoglobin mass conc (Bld) 13.7 g/dL Normal 12.0-16.0 [facility] Comment on above: Performed By: #### 2 783051 ####MALACHI [address] [place] [address] MCH 30.2 pg Normal 27.0-31.0 [facility] Comment on above: Performed By: #### 2 828015 ####MALACHI [address] [place] [address] MCHC mass conc (RBC) 33.9 g/dL Normal 33.0-37.0 [facility] Comment on above: Performed By: #### 2 605043 ####MALACHI [address] [place] [address] MCV 89.2 fL Normal 78.0-100.0 [facility] Comment on above: Performed By: #### 2 [id number] ####MALACHI [address] [place] [address] Platelet mean volume (PMV) 9.4 fL Normal 7.4-11.0 [facility] Comment on above: Performed By: #### 2 104400 ####MALACHI [address]ch[address] [place] [address] Platelets 243 E3/mcL Normal 130-400 [facility] Comment on above: Performed By: #### 2 481824 ####MALACHI [address] [place] [address] WBC (Leukocytes) 5.6 E3/mcL Normal 3.6-11.0 [facility] Comment on above: Performed By: #### 2 583333 ####MALACHI [address] [place] [address] CMPon 04-27-2017 Alanine aminotransferase (ALT) 10 Int._Unit/L Normal 10-40 [facility] Comment on above: Performed By: #### 2 553862 ####MALACHI [address] [place] [address] Albumin 3.9 g/dL Normal 3.2-5.0 [facility] Comment on above: Performed By: #### 2 333122 ####MALACHI [address] [place] [address] Albumin/Globulin Ratio 1.4 {ratio} Normal 1.1-1.[address] [facility] Comment on above: Performed By: #### 2 706144 ####MALACHI [address]ags[address] [place] [address] Alk Phos 60 Int._Unit/L Normal 42-121 [facility] Comment on above: Performed By: #### 2 420463 ####MALACHI [address] [place] [address] Aspartate aminotransferase (AST) 15 Int._Unit/L Normal 10-42 [facility] Comment on above: Performed By: #### 2 120431 ####MALACHI [address]um[address] [place] [address] Bili Total 0.4 mg/dL Normal 0.2-1.0 [facility] Comment on above: Performed By: #### 2 126931 ####MALACHI [address]ts[address] [place] [address] BUN/Creatinine Ratio 14.3 ratio Normal 5.4-30.0 [facility] Comment on above: Performed By: #### 2 608034 ####MALACHI [address] [place] [address] Creatinine 0.7 mg/dL Normal 0.6-1.3 [facility] Comment on above: Performed By: #### 2 488225 ####MALACHI [address] [place] [address] Globulin 2.8 g/dL Normal 2.0-4.0 [facility] Comment on above: Performed By: #### 2 974351 ####MALACHI [address] [place] [address] Protein 6.7 g/dL Normal 6.4-8.3 [facility] Comment on above: Performed By: #### 2 564535 ####MALACHI [address] [place] [address] Urea nitrogen 10 mg/dL Normal 7-18 [facility] Comment on above: Performed By: #### 2 313395 ####MALACHI [address] [place] [address] Calcium 9.2 mg/dL Normal 8.4-10.2 [facility] Comment on above: Performed By: #### 2 004329 ####MALACHI [address] [place] [address] Chloride 105 mmol/L Normal 98-107 [facility] Comment on above: Performed By: #### 2 979991 ####MALACHI [address] [place] [address] CO2 24.8 mmol/L Normal 24.0-30.0 [facility] Comment on above: Performed By: #### 2 366496 ####MALACHI [address] [place] [address] Glucose mass conc 87 mg/dL Normal 70-99 [facility] Comment on above: Performed By: #### 2 490728 ####MALACHI [address] [place] [address] Potassium molar conc 4.1 mmol/L Normal 3.5-5.1 [facility] Comment on above: Performed By: #### 2 837898 ####MALACHI [address] [place] [address] Sodium 136 mmol/L Normal 136-145 [facility] Comment on above: Performed By: #### 2 747237 ####MALACHI [address]Zvlc[address] [place] [address] CRPon 04-27-2017 C reactive protein (CRP) mg/L Normal 0.00-0.75 [facility] Comment on above: Performed By: #### 2 480993 ####MALAHCI [address] [place] [address] Lipase Levelon 04-27-2017 Lipase Lvl 14 U/L Normal 8-57 [facility] Comment on above: Performed By: #### 2 472061 ####MALACHI [address] [place] [address] POC Urinalysis Dip POCon Bilirubin (direct) Negative Normal Negative [facility] Comment on above: Performed By: #### C [id number] ####MALACHI POC [address] [place] [address] Glucose mass conc Negative Normal Negative [facility] Comment on above: Performed By: #### C [id number] ####MALACHI POC [address] [place] [address] POC Blood Negative Normal Negative [facility] Comment on above: Performed By: #### C [id number] ####MALACHI POC [address] [place] [address] POC Clarity CLEAR Normal CLEAR [facility] Comment on above: Performed By: #### C [id number] ####MALACHI POC [address] [place] [address] POC Color Yellow Normal Yellow [facility] Comment on above: Performed By: #### C [id number] ####MALACHI POC [address] [place] [address] POC Ketone Negative Normal Negative [facility] Comment on above: Performed By: #### C [id number] ####MALACHI POC [address] [place] [address] POC Leukocyte Trace Normal Negative [facility] Comment on above: Performed By: #### C [id number] ####MALACHI POC [address] [place] [address] POC Nitrite Negative Normal Negative [facility] Comment on above: Performed By: #### C [id number] ####MALACHI POC [address] [place] [address] POC pH 6.0 mg/dL Normal 5.0-8.0 [facility] Comment on above: Performed By: #### C [id number] ####MALACHI POC [address] [place] [address] POC Protein Negative Normal Negative [facility] Comment on above: Performed By: #### C [id number] ####MALACHI POC [address] [place] [address] POC Specific Bannister 1.025 mg/dL Normal 1.005-1.035 [facility] Comment on above: Performed By: #### C [id number] ####MALACHI POC [address] [place] [address] POC Urobilinogen 0.2 EU/dL Normal 0.2-1.0 [facility] Comment on above: Performed By: #### C D:[id number] ####MALACHI POC [address] [place] [address] POC Urine Pregnancyon 2017 HCG.beta subunit Qn Negative Normal Negative [facility] Comment on above: Performed By: #### C D:[id number] ####MALACHI POC [address] [place] [address] US Abdomen, Limitedon 2017 INR Coag RelTime (Bld) Exam Date/Time:04/27/2017 13:52 ESTReason for Exam:Abdominal painReportUS ABDOMEN, LIMITEDCLINICAL STATEMENT: Persistent abdominal pain increasing over the last month.TECHNIQUE: Transabdominal sonography with limited Doppler was performed.COMPARISON : None.FINDINGS: The visualized liver is unremarkable. Its echotexture issatisfactory. There is no specific hepatic mass or ductal dilation.The pancreas is normal to the extent of visualization.The gallbladder likewise appears to be normal. There is no evidence ofgallstones, shadowing, wall thickening or pericholecystic fluid. No ductaldilation was seen. The sonographic Mariscal sign was thought to be negative. CBDmeasured 2 mm.IMPRESSION:Unrema rkable ultrasound of the liver, pancreas and gallbladder. FINAL REPORT Dictated: 04/27/2017 2:30 pm Teagan Flaherty DO RSigned (Electronic Signature): 04/27/2017 2:30 pmSigned by: Teagan Flaherty DO Technologist: NIKHIL [facility] XR Abdomen Acute (PA Chest)o n 04-27-2017 XR Abdomen Acute (PA Chest) Exam Date/Time:04/27/2017 10:50 ESTReason for Exam:Abdominal painReportXR ABDOMEN ACUTE (PA CHEST)CLINICAL STATEMENT: Minimal pain in an 16-year-old female.TECHNIQUE: An upright PA view of the chest was supplemented with recumbentupright views of the abdomen and pelvis.COMPARISON: No prior films.FINDINGS:CHEST : The heart is satisfactory in size. The trachea is normal. There is nomediastinal, hilar, or pulmonary pathology.ABDOMEN: There is no free air. Organ outlines are satisfactory. I see noair-fluid levels. There is pronounced constipation with major retained fecaldebris throughout the ascending colon and in the rectosigmoid area. I do notsee pathological calcifications.IMPRE SSION:1. Unremarkable-appeari ng chest.2. No definite acute-appearing intraabdominal or pelvic finding is identified.3. Prominent predominantly right colon retained fecal debris suggestive of somecomponent of constipation. FINAL REPORT Dictated: 04/27/2017 12:03 pm Teagan Flaherty DO RSigned (Electronic Signature): 04/27/2017 12:03 pmSigned by: Teagan Flaherty DO Technologist: MARGE [facility] eGFRon 04-27-2017 eGFR (non-black) mL/min/{1.73_m2} Normal [facility] Comment on above: Order Comment: Order added by Discern Expert. Performed By: #### 1 [id number] ####MALACHI [address] [place] [address] Vital Signs Date Time Vital Sign Value Performing Clinician Harsh mcdaniel 09-03-2024 15:05-0400 Body mass index (BMI) [Ratio] 25.6 kg/m2 Dorita Larkin APRN.AMANDA Work Phone: [facility] 09-03-2024 15:05-0400 Body weight 74.84 kg Dorita Larkin APRN.CNP Work Phone: [facility] 09-03-2024 15:05-0400 Diastolic blood pressure 76 mm[Hg] Dorita Larkin MEDIA LIBRARIAN.PROFESSOR OF PHYSICAL EDUCATION Work Phone: [facility] 09-03-2024 15:05-0400 Heart rate 70 /min Dorita Larkin MEDIA LIBRARIAN.PROFESSOR OF PHYSICAL EDUCATION Work Phone: [facility] 09-03-2024 15:05-0400 Systolic blood pressure 112 mm[Hg] Dorita Larkin MEDIA LIBRARIAN.PROFESSOR OF PHYSICAL EDUCATION Work Phone: [facility] 08-16-2024 14:52-0400 Body height 172.[address] oTni Barrera MD Work Phone: [facility] 08-16-2024 14:52-0400 Body mass index (BMI) [Ratio] 25.4 kg/m2 Dr. Toni Barrera MD Work Phone: [facility] 08-16-2024 14:52-0400 Body weight 75.[address] Toni Barrera MD Work Phone: [facility] 08-08-2024 14:40-0400 Body mass index (BMI) [Ratio] 25.57 kg/m2 Lena Podlogar MEDIA LIBRARIAN.PROFESSOR OF PHYSICAL EDUCATION Work Phone: [facility] 08-08-2024 14:40-0400 Body temperature 98.2 [degF] Lena Podlogar MEDIA LIBRARIAN.PROFESSOR OF PHYSICAL EDUCATION Work Phone: [facility] 08-08-2024 14:40-0400 Body weight 74.75 kg Lena Podlogar MEDIA LIBRARIAN.PROFESSOR OF PHYSICAL EDUCATION Work Phone: [facility] 08-08-2024 14:40-0400 Diastolic blood pressure 72 mm[Hg] Lena Podlogar MEDIA LIBRARIAN.PROFESSOR OF PHYSICAL EDUCATION Work Phone: [facility] 08-08-2024 14:40-0400 Heart rate 82 /min Lena Podlogar MEDIA LIBRARIAN.PROFESSOR OF PHYSICAL EDUCATION Work Phone: [facility] 08-08-2024 14:40-0400 Respiratory rate 18 /min Lena Podlogar MEDIA LIBRARIAN.PROFESSOR OF PHYSICAL EDUCATION Work Phone: [facility] 08-08-2024 14:40-0400 SaO2% (BldA) [Mass fraction] 98 % Lena Podlogjayda MEDIA LIBRARIAN.PROFESSOR OF PHYSICAL EDUCATION Work Phone: [facility] 08-08-2024 14:40-0400 Systolic blood pressure 106 mm[Hg] Lena Monterrosologjayda MEDIA LIBRARIAN.PROFESSOR OF PHYSICAL EDUCATION Work Phone: [facility] 07-20-2024 10:03-0400 Body mass index (BMI) [Ratio] 25.31 kg/m2 Dorita Larkin MEDIA LIBRARIAN.PROFESSOR OF PHYSICAL EDUCATION Work Phone: [facility] 07-20-2024 10:03-0400 Body weight 74 kg Dorita Larkin APRN.PROFESSOR OF PHYSICAL EDUCATION Work Phone: [facility] 07-20-2024 10:03-0400 Diastolic blood pressure 70 mm[Hg] Dorita Larkin MEDIA LIBRARIAN.PROFESSOR OF PHYSICAL EDUCATION Work Phone: [facility] 07-20-2024 10:03-0400 Heart rate 82 /min Dorita Larkin MEDIA LIBRARIAN.PROFESSOR OF PHYSICAL EDUCATION Work Phone: [facility] 07-20-2024 10:03-0400 Systolic blood pressure 113 mm[Hg] Dorita Larkin APRN.PROFESSOR OF PHYSICAL EDUCATION Work Phone: [facility] 06-26-2024 16:32-0400 Body mass index (BMI) [Ratio] 26.81 kg/m2 Krislyn Aberegg PA Work Phone: [facility] 06-26-2024 16:32-0400 Body temperature 97.7 [degF] Krislyn Aberegg PA Work Phone: [facility] 06-26-2024 16:32-0400 Body weight 78.4 kg Krislyn Aberegg PA Work Phone: [facility] 06-26-2024 16:32-0400 Diastolic blood pressure 76 mm[Hg] Krislyn Aberegg PA Work Phone: [facility] 06-26-2024 16:32-0400 Heart rate 87 /min Krislyn Aberegg PA Work Phone: [facility] 06-26-2024 16:32-0400 Respiratory rate 18 /min Krislyn Aberegg PA Work Phone: [facility] 06-26-2024 16:32-0400 SaO2% (BldA) [Mass fraction] 98 % Krislyn Aberegg PA Work Phone: [facility] 06-26-2024 16:32-0400 Systolic blood pressure 128 mm[Hg] Krislyn Aberegg PA Work Phone: [facility] 05-17-2024 16:07-0400 Body mass index (BMI) [Ratio] 25.31 kg/m2 Dorita Larkin MEDIA LIBRARIAN.PROFESSOR OF PHYSICAL EDUCATION Work Phone: [facility] 05-17-2024 16:07-0400 Body weight 74 kg Dorita Larkin MEDIA LIBRARIAN.PROFESSOR OF PHYSICAL EDUCATION Work Phone: [facility] 05-17-2024 16:07-0400 Diastolic blood pressure 75 mm[Hg] Dorita Larkin MEDIA LIBRARIAN.PROFESSOR OF PHYSICAL EDUCATION Work Phone: [facility] 05-17-2024 16:07-0400 Heart rate 86 /min Dorita Larkin APRN.PROFESSOR OF PHYSICAL EDUCATION Work Phone: [facility] 05-17-2024 16:07-0400 Systolic blood pressure 114 mm[Hg] Dorita Larkin MEDIA LIBRARIAN.PROFESSOR OF PHYSICAL EDUCATION Work Phone: [facility] 05-17-2024 14:35-0400 Body mass index (BMI) [Ratio] 25 kg/m2 Dr. Toni Barrera MD Work Phone: [facility] 05-17-2024 14:35-0400 Body weight 74.[address] Toni Barrera MD Work Phone: [facility] 05-17-2024 14:35-0400 Diastolic blood pressure 75 mm[Hg] Dr. Toni Barrera MD Work Phone: [facility] 05-17-2024 14:35-0400 Systolic blood pressure 111 mm[Hg] Dr. Toni Barrera MD Work Phone: [facility] 02-07-2024 15:23-0500 Body mass index (BMI) [Ratio] 26.37 kg/m2 Dorita Larkin APRN.PROFESSOR OF PHYSICAL EDUCATION Work Phone: [facility] 02-07-2024 15:23-0500 Body weight 77.11 kg Dorita Larkin APRN.PROFESSOR OF PHYSICAL EDUCATION Work Phone: [facility] 02-07-2024 15:23-0500 Diastolic blood pressure 71 mm[Hg] Dorita Larkin APRN.PROFESSOR OF PHYSICAL EDUCATION Work Phone: [facility] 02-07-2024 15:23-0500 Heart rate 82 /min Dorita Larkin APRN.PROFESSOR OF PHYSICAL EDUCATION Work Phone: [facility] 02-07-2024 15:23-0500 Respiratory rate 14 /min Dorita Larkin APRN.PROFESSOR OF PHYSICAL EDUCATION Work Phone: [facility] 02-07-2024 15:23-0500 Systolic blood pressure 111 mm[Hg] Dorita Larkin APRN.PROFESSOR OF PHYSICAL EDUCATION Work Phone: [facility] 01-24-2024 17:40-0500 Body height 172.7 cm Amber Salguero Jr., PA-C Work Phone: [facility] 01-24-2024 17:40-0500 Diastolic blood pressure 79 mm[Hg] Amber Salguero Jr., PA-C Work Phone: [facility] 01-24-2024 17:40-0500 Systolic blood pressure 140 mm[Hg] Amber Salguero Jr., PA-C Work Phone: [facility] 01-02-2024 15:32-0400 Body mass index (BMI) [Ratio] 25.29 kg/m2 Dorita Larkin APRN.PROFESSOR OF PHYSICAL EDUCATION Work Phone: [facility] 01-02-2024 15:32-0400 Body temperature 98.8 [degF] Dorita Larkin MEDIA LIBRARIAN.PROFESSOR OF PHYSICAL EDUCATION Work Phone: [facility] 01-02-2024 15:32-0400 Body weight 73.94 kg Doritanakul Larkin MEDIA LIBRARIAN.PROFESSOR OF PHYSICAL EDUCATION Work Phone: [facility] 01-02-2024 15:32-0400 Diastolic blood pressure 72 mm[Hg] Dorita Trae MEDIA LIBRARIAN.PROFESSOR OF PHYSICAL EDUCATION Work Phone: [facility] 01-02-2024 15:32-0400 Heart rate 99 /min Dorita Trae MEDIA LIBRARIAN.PROFESSOR OF PHYSICAL EDUCATION Work Phone: [facility] 01-02-2024 15:32-0400 Respiratory rate 14 /min Dorita Trae MEDIA LIBRARIAN.PROFESSOR OF PHYSICAL EDUCATION Work Phone: [facility] 01-02-2024 15:32-0400 Systolic blood pressure 117 mm[Hg] Dorita Chanoble MEDIA LIBRARIAN.PROFESSOR OF PHYSICAL EDUCATION Work Phone: [facility] 05-31-2023 15:06-0400 Body weight 72.12 kg Dorita Larkin MEDIA LIBRARIAN.PROFESSOR OF PHYSICAL EDUCATION Work Phone: [facility] 05-31-2023 15:06-0400 Diastolic blood pressure 74 mm[Hg] Dorita Chanoble MEDIA LIBRARIAN.PROFESSOR OF PHYSICAL EDUCATION Work Phone: [facility] 05-31-2023 15:06-0400 Heart rate 96 /min Dorita Chanoble MEDIA LIBRARIAN.PROFESSOR OF PHYSICAL EDUCATION Work Phone: [facility] 05-31-2023 15:06-0400 Respiratory rate 14 /min Dorita Trae MEDIA LIBRARIAN.PROFESSOR OF PHYSICAL EDUCATION Work Phone: [facility] 05-31-2023 15:06-0400 Systolic blood pressure 113 mm[Hg] Dorita Chanoble MEDIA LIBRARIAN.PROFESSOR OF PHYSICAL EDUCATION Work Phone: [facility] 04-14-2023 14:43-0500 Body height 175.3 cm Juan Rankin MD Work Phone: [facility] 04-14-2023 14:43-0500 Body mass index (BMI) [Ratio] 23.48 kg/m2 Juan Rankin MD Work Phone: [facility] 04-14-2023 14:43-0500 Body temperature 97.11 [degF] Juan Rankin MD Work Phone: [facility] 04-14-2023 14:43-0500 Body weight 72.12 kg Juan Rankin MD Work Phone: [facility] 04-14-2023 14:43-0500 Heart rate 98 /min Juan Rankin MD Work Phone: [facility] 04-14-2023 14:43-0500 SaO2% (BldA) [Mass fraction] 98 % Juan Rankin MD Work Phone: [facility] 03-28-2023 15:13-0500 Body height 172.[address] Toni Barrera Work Phone: 2(293)219-781420 [place] [address] 03-28-2023 15:13-0500 Body mass index (BMI) [Ratio] 24.6 kg/m2 Dr. Toni Barrera Work Phone: 7(083)205-883385 [place] [address] 03-28-2023 15:13-0500 Body weight 73.[address] Toni Barrera Work Phone: 8(885)003-079185 [place] [address] 03-28-2023 15:13-0500 Diastolic blood pressure 80 mm[Hg] Dr. Toni Barrera Work Phone: 1(675)468-648420 [place] [address] 03-28-2023 15:13-0500 Systolic blood pressure 116 mm[Hg] Dr. Toni Barrera Work Phone: [facility] 03-03-2023 14:13-0500 Body height 175.3 cm Juan Rankin MD Work Phone: [facility] 03-03-2023 14:13-0500 Body mass index (BMI) [Ratio] 23.63 kg/m2 Juan Rankin MD Work Phone: [facility] 03-03-2023 14:13-0500 Body temperature 96.69 [degF] Juan Rankin MD Work Phone: [facility] 03-03-2023 14:13-0500 Body weight 72.58 kg Juan Rankin MD Work Phone: [facility] 03-03-2023 14:13-0500 Heart rate 81 /min Juan Rankin MD Work Phone: [facility] 03-03-2023 14:13-0500 SaO2% (BldA) [Mass fraction] 97 % Juan Rankin MD Work Phone: [facility] 02-17-2023 14:30-0500 Body weight 69.4 kg Dorita Larkin MEDIA LIBRARIAN.PROFESSOR OF PHYSICAL EDUCATION Work Phone: [facility] 02-17-2023 14:30-0500 Diastolic blood pressure 77 mm[Hg] Dorita Larkin MEDIA LIBRARIAN.PROFESSOR OF PHYSICAL EDUCATION Work Phone: [facility] 02-17-2023 14:30-0500 Heart rate 102 /min Dorita Larkin MEDIA LIBRARIAN.PROFESSOR OF PHYSICAL EDUCATION Work Phone: [facility] 02-17-2023 14:30-0500 Respiratory rate 14 /min Dorita Larkin MEDIA LIBRARIAN.PROFESSOR OF PHYSICAL EDUCATION Work Phone: [facility] 02-17-2023 14:30-0500 Systolic blood pressure 111 mm[Hg] Dorita Larkin MEDIA LIBRARIAN.PROFESSOR OF PHYSICAL EDUCATION Work Phone: [facility] 02-03-2023 22:11-0500 Diastolic blood pressure 94 mm[Hg] Dr. Toni Barrera Work Phone: [facility] 02-03-2023 22:11-0500 Heart rate 93 /min Dr. Toni Barrera Work Phone: [facility] 02-03-2023 22:11-0500 Respiratory rate 16 /min Dr. Toni Barrera Work Phone: [facility] 02-03-2023 22:11-0500 SaO2% (BldA) [Mass fraction] 100 % Dr. Toni Barrera Work Phone: [facility] 02-03-2023 22:11-0500 Systolic blood pressure 115 mm[Hg] Dr. Toni Barrera Work Phone: 9(588)132-722220 [place] [address] 02-03-2023 15:38-0500 Body height [address] Toni Barrera Work Phone: 2(954)847-864720 [place] [address] 02-03-2023 15:38-0500 Body mass index (BMI) [Ratio] 23.3 kg/m2 Dr. Toni Barrera Work Phone: 8(758)920-075920 [place] [address] 02-03-2023 15:38-0500 Body temperature 97.2 [degF] Dr. Toni Barrera Work Phone: 2(913)129-146820 [place] [address] 02-03-2023 15:38-0500 Body weight 69.[address] Toni Barrera Work Phone: [facility] 02-03-2023 14:51-0500 Body temperature 97.9 [degF] Vy Garibay MEDIA LIBRARIAN.PROFESSOR OF PHYSICAL EDUCATION Work Phone: [facility] 02-03-2023 14:51-0500 Body weight 69.49 kg Vy Garibay MEDIA LIBRARIAN.PROFESSOR OF PHYSICAL EDUCATION Work Phone: [facility] 02-03-2023 14:51-0500 Diastolic blood pressure 60 mm[Hg] Vy Garibay MEDIA LIBRARIAN.PROFESSOR OF PHYSICAL EDUCATION Work Phone: [facility] 02-03-2023 14:51-0500 Heart rate 127 /min Vy Garibay MEDIA LIBRARIAN.PROFESSOR OF PHYSICAL EDUCATION Work Phone: [facility] 02-03-2023 14:51-0500 SaO2% (BldA) [Mass fraction] 99 % Vy Garibay MEDIA LIBRARIAN.PROFESSOR OF PHYSICAL EDUCATION Work Phone: [facility] 02-03-2023 14:51-0500 Systolic blood pressure 80 mm[Hg] Vy Garibay SHE Work Phone: [facility] 01-22-2023 11:20-0500 Body temperature 98.2 [degF] Juan aRnkin MD Work Phone: [facility] 01-22-2023 11:20-0500 Diastolic blood pressure 77 mm[Hg] Juan Rankin MD Work Phone: [facility] 01-22-2023 11:20-0500 Heart rate 107 /min Juan Rankin MD Work Phone: [facility] 01-22-2023 11:20-0500 Respiratory rate 16 /min Juan Rankin MD Work Phone: [facility] 01-22-2023 11:20-0500 SaO2% (BldA) [Mass fraction] 98 % Juan Rankin MD Work Phone: [facility] 01-22-2023 11:20-0500 Systolic blood pressure 122 mm[Hg] Juan Rankin MD Work Phone: [facility] 01-17-2023 05:44-0500 Body height 175.3 cm Juan Rankin MD Work Phone: [facility] 01-17-2023 05:44-0500 Body mass index (BMI) [Ratio] 23.45 kg/m2 Juan Rankin MD Work Phone: [facility] 01-17-2023 05:44-0500 Body weight 72.03 kg Juan Rankin MD Work Phone: [facility] 01-03-2023 16:01-0400 Body mass index (BMI) [Ratio] 24.3 kg/m2 Dr. Toni Barrera Work Phone: [facility] 01-03-2023 16:01-0400 Body weight 72.[address] Toni Barrera Work Phone: [facility] 01-03-2023 16:01-0400 Diastolic blood pressure 78 mm[Hg] Dr. Toni Barrera Work Phone: [facility] 01-03-2023 16:01-0400 Systolic blood pressure 120 mm[Hg] Dr. Toni Barrera Work Phone: [facility] 01-03-2023 10:28-0400 Body height 174 cm Poorvi Trey DO Work Phone: [facility] 01-03-2023 10:28-0400 Body mass index (BMI) [Ratio] 23.28 kg/m2 Poorvi Trey DO Work Phone: 0(355)083-691797 [place] [address] 01-03-2023 10:28-0400 Body temperature 98.1 [degF] Poorvi Trey DO Work Phone: 0(943)206-405397 [place] [address] 01-03-2023 10:28-0400 Body weight 70.49 kg Poorvi Trey DO Work Phone: 9(224)794-887689 [place] [address] 01-03-2023 10:28-0400 Diastolic blood pressure 64 mm[Hg] Poorvi Trey DO Work Phone: 2(583)065-021589 [place] [address] 01-03-2023 10:28-0400 Heart rate 64 /min Poorvi Trey DO Work Phone: 0(903)723-178089 [place] [address] 01-03-2023 10:28-0400 Respiratory rate 16 /min Poorvi Trey DO Work Phone: [facility] 01-03-2023 10:28-0400 SaO2% (BldA) [Mass fraction] 99 % Poorvi Trey DO Work Phone: 3(549)468-758189 [place] [address] 01-03-2023 10:28-0400 Systolic blood pressure 108 mm[Hg] Poorvi Trey DO Work Phone: 8(379)569-505389 [place] [address] 12-21-2022 15:39-0400 Body weight 69.94 kg Tod Hayes MD Work Phone: [facility] 12-21-2022 15:39-0400 Diastolic blood pressure 68 mm[Hg] Tod Hayes MD Work Phone: [facility] 12-21-2022 15:39-0400 Heart rate 60 /min Tdo Hayes MD Work Phone: [facility] 12-21-2022 15:39-0400 Respiratory rate 16 /min Tod Hayes MD Work Phone: [facility] 12-21-2022 15:39-0400 SaO2% (BldA) [Mass fraction] 98 % Tod Hayes MD Work Phone: [facility] 12-21-2022 15:39-0400 Systolic blood pressure 118 mm[Hg] Tod Hayes MD Work Phone: [facility] 11-22-2022 13:40-0400 Body height 175.3 cm Amber Salguero Jr., PAC Work Phone: [facility] 11-22-2022 13:40-0400 Body mass index (BMI) [Ratio] 21.84 kg/m2 Amber Salguero Jr., PAC Work Phone: [facility] 11-22-2022 13:40-0400 Body temperature 96.91 [degF] Amber Salguero Jr., PAC Work Phone: [facility] 11-22-2022 13:40-0400 Body weight 67.09 kg Amber Salguero Jr., PAC Work Phone: [facility] 11-22-2022 13:40-0400 Heart rate 63 /min Amber Salguero Jr., PAC Work Phone: [facility] 11-22-2022 13:40-0400 SaO2% (BldA) [Mass fraction] 96 % Amber Salguero Jr., PAC Work Phone: [facility] 10-12-2022 10:39-0400 Body mass index (BMI) [Ratio] 22.6 kg/m2 Dr. Toni Barrera Work Phone: [facility] 10-12-2022 10:39-0400 Body weight 67.[address] Toni Barrera Work Phone: [facility] 08-24-2022 15:14-0400 Body weight 69.31 kg Tod Hayes MD Work Phone: [facility] 08-24-2022 15:14-0400 Diastolic blood pressure 72 mm[Hg] Tod Hayes MD Work Phone: [facility] 08-24-2022 15:14-0400 Heart rate 80 /min Tod Hayes MD Work Phone: [facility] 08-24-2022 15:14-0400 Respiratory rate 16 /min Tod Hayes MD Work Phone: [facility] 08-24-2022 15:14-0400 SaO2% (BldA) [Mass fraction] 98 % Tod Hayes MD Work Phone: [facility] 08-24-2022 15:14-0400 Systolic blood pressure 108 mm[Hg] Tod Hayes MD Work Phone: [facility] 07-13-2022 15:04-0400 Body weight 71.31 kg Dorita Larkin APRN.PROFESSOR OF PHYSICAL EDUCATION Work Phone: [facility] 07-13-2022 15:04-0400 Diastolic blood pressure 72 mm[Hg] Dorita Larkin APRN.PROFESSOR OF PHYSICAL EDUCATION Work Phone: [facility] 07-13-2022 15:04-0400 Heart rate 78 /min Dorita Larkin APRN.PROFESSOR OF PHYSICAL EDUCATION Work Phone: [facility] 07-13-2022 15:04-0400 Respiratory rate 16 /min Dorita Larkin APRN.PROFESSOR OF PHYSICAL EDUCATION Work Phone: [facility] 07-13-2022 15:04-0400 SaO2% (BldA) [Mass fraction] 100 % Dorita Larkin MEDIA LIBRARIAN.PROFESSOR OF PHYSICAL EDUCATION Work Phone: [facility] 07-13-2022 15:04-0400 Systolic blood pressure 104 mm[Hg] Dorita Larkin APRN.PROFESSOR OF PHYSICAL EDUCATION Work Phone: [facility] 07-12-2022 06:25-0400 Diastolic blood pressure 70 mm[Hg] Dr. Toni Barrera Work Phone: [facility] 07-12-2022 06:25-0400 Heart rate 66 /min Dr. Toni Barrera Work Phone: 7(527)110-948520 [place] [address] 07-12-2022 06:25-0400 Respiratory rate 18 /min Dr. Toni Barrera Work Phone: 2(378)290-596885 [place] [address] 07-12-2022 06:25-0400 SaO2% (BldA) [Mass fraction] 100 % Dr. Toni Barrera Work Phone: [facility] 07-12-2022 06:25-0400 Systolic blood pressure 120 mm[Hg] Dr. Toni Barrera Work Phone: 5(000)386-186320 [place] [address] 07-12-2022 04:13-0400 Body height 172.[address] Toni Barrera Work Phone: 6(093)506-004985 [place] [address] 07-12-2022 04:13-0400 Body mass index (BMI) [Ratio] 24.5 kg/m2 Dr. Toni Barrera Work Phone: [facility] 07-12-2022 04:13-0400 Body temperature 98 [degF] Dr. Toni Barrera Work Phone: 0(348)732-290920 [place] [address] 07-12-2022 04:13-0400 Body weight 73.[address] Toni Barrera Work Phone: 9(622)450-165520 [place] [address] 06-07-2022 11:10-0400 Body height 175.[address] Toni Barrera Work Phone: 0(509)062-536720 [place] [address] 06-07-2022 11:10-0400 Body mass index (BMI) [Ratio] 23 kg/m2 Dr. oTni Barrera Work Phone: [facility] 06-07-2022 11:10-0400 Body weight 70.[address] Toni Barrera Work Phone: [facility] 06-07-2022 11:10-0400 Diastolic blood pressure 72 mm[Hg] Dr. Toni Barrera Work Phone: [facility] 06-07-2022 11:10-0400 Systolic blood pressure 110 mm[Hg] Dr. Toni Barrera Work Phone: [facility] 05-27-2022 15:51-0400 Body height 175.3 cm Juan Rankin MD Work Phone: [facility] 05-27-2022 15:51-0400 Body mass index (BMI) [Ratio] 22.67 kg/m2 Juan Rankin MD Work Phone: [facility] 05-27-2022 15:51-0400 Body temperature 96.8 [degF] Juan Rankin MD Work Phone: [facility] 05-27-2022 15:51-0400 Body weight 69.63 kg Juan Rankin MD Work Phone: [facility] 05-27-2022 15:51-0400 Heart rate 87 /min Juan Rankin MD Work Phone: [facility] 05-27-2022 15:51-0400 SaO2% (BldA) [Mass fraction] 98 % Juan Rankin MD Work Phone: [facility] 05-25-2022 14:57-0400 Body temperature 99.1 [degF] Dorita Larkin APRN.PROFESSOR OF PHYSICAL EDUCATION Work Phone: [facility] 05-25-2022 14:57-0400 Body weight 69.85 kg Dorita Knoble MEDIA LIBRARIAN.PROFESSOR OF PHYSICAL EDUCATION Work Phone: [facility] 05-25-2022 14:57-0400 Diastolic blood pressure 70 mm[Hg] Dorita Knoble MEDIA LIBRARIAN.PROFESSOR OF PHYSICAL EDUCATION Work Phone: [facility] 05-25-2022 14:57-0400 Heart rate 80 /min Dorita Knoble MEDIA LIBRARIAN.PROFESSOR OF PHYSICAL EDUCATION Work Phone: [facility] 05-25-2022 14:57-0400 Respiratory rate 16 /min Dorita Knoble MEDIA LIBRARIAN.PROFESSOR OF PHYSICAL EDUCATION Work Phone: [facility] 05-25-2022 14:57-0400 Systolic blood pressure 120 mm[Hg] Dorita Knoble MEDIA LIBRARIAN.PROFESSOR OF PHYSICAL EDUCATION Work Phone: [facility] 04-20-2022 10:30-0500 Diastolic blood pressure 74 mm[Hg] Dorita Knoble MEDIA LIBRARIAN.PROFESSOR OF PHYSICAL EDUCATION Work Phone: [facility] 04-20-2022 10:30-0500 Heart rate 90 /min Dorita Knoble MEDIA LIBRARIAN.PROFESSOR OF PHYSICAL EDUCATION Work Phone: [facility] 04-20-2022 10:30-0500 Respiratory rate 14 /min Dorita Knoble MEDIA LIBRARIAN.PROFESSOR OF PHYSICAL EDUCATION Work Phone: [facility] 04-20-2022 10:30-0500 Systolic blood pressure 120 mm[Hg] Dorita Knoble MEDIA LIBRARIAN.PROFESSOR OF PHYSICAL EDUCATION Work Phone: [facility] 04-18-2022 17:32-0500 Body mass index (BMI) [Ratio] 25.1 kg/m2 Dr. Toni Barrera Work Phone: [facility] 04-18-2022 17:32-0500 Body temperature 97.2 [degF] Dr. Toni Barrera Work Phone: [facility] 04-18-2022 17:32-0500 Body weight 77.[address] Toni Barrera Work Phone: [facility] 04-18-2022 17:32-0500 Diastolic blood pressure 52 mm[Hg] Dr. Toni Barrera Work Phone: [facility] 04-18-2022 17:32-0500 Heart rate 68 /min Dr. Toni Barrera Work Phone: [facility] 04-18-2022 17:32-0500 Respiratory rate 16 /min Dr. Toni Barrera Work Phone: [facility] 04-18-2022 17:32-0500 SaO2% (BldA) [Mass fraction] 100 % Dr. Toni Barrera Work Phone: [facility] 04-18-2022 17:32-0500 Systolic blood pressure 93 mm[Hg] Dr. Toni Barrera Work Phone: [facility] 03-24-2022 16:42-0500 Body weight 72.12 kg Toni Barrera MD Work Phone: [facility] 03-24-2022 16:42-0500 Diastolic blood pressure 84 mm[Hg] Toni Barrera MD Work Phone: [facility] 03-24-2022 16:42-0500 Heart rate 82 /min Toni Barrera MD Work Phone: [facility] 03-24-2022 16:42-0500 Systolic blood pressure 134 mm[Hg] Toni Barrera MD Work Phone: [facility] 11-05-2021 13:34-0400 Body temperature 97.7 [degF] Erma Gonzalez PA-C Work Phone: [facility] 11-05-2021 13:34-0400 Body weight 69.85 kg Eram Gonzalez PA-C Work Phone: [facility] 11-05-2021 13:34-0400 Diastolic blood pressure 72 mm[Hg] Erma Gonzalez PA-C Work Phone: [facility] 11-05-2021 13:34-0400 Heart rate 72 /min Erma Gonzalez PA-C Work Phone: [facility] 11-05-2021 13:34-0400 Respiratory rate 16 /min Erma Gonzalez PA-C Work Phone: [facility] 11-05-2021 13:34-0400 Systolic blood pressure 100 mm[Hg] Erma Gonzalez PA-C Work Phone: [facility] Encounters Encounter Date Encounter Type Care Provider Facility Start: 09-03-2024 End: 09-03-2024 Patient encounter procedure Dorita Larkin APRN.PROFESSOR OF PHYSICAL EDUCATION Work Phone: [facility] [place] Comment on above: SONIYA (generalized anx iety disorder) (Primary Dx) Start: 09-03-2024 End: 09-03-2024 ambulatory DORITA LARKIN Facility:[facility] [place] Start: 08-16-2024 End: 08-16-2024 Patient encounter procedure Deanna MATTHEWS -[facility] Work Phone: Start: 08-16-2024 End: 08-16-[address] Toni Barrera MD Work Phone: [facility] Work Phone: Start: 08-08-2024 End: 08-08-2024 Patient encounter procedure Lena Corbett APRN.PROFESSOR OF PHYSICAL EDUCATION Work Phone: [facility] [place] Comment on above: History of removal o f skin mole (Primary Dx) Start: 08-08-2024 End: 08-08-2024 ambulatory TONI BARRERA Facility:[facility] [place] Start: 07-22-2024 End: 07-23-2024 Follow-up encounter Dorita Larkin APRN.CNP Work Phone: [facility] Start: 07-20-2024 End: 07-20-2024 Patient encounter procedure Dorita Larkin APRN.PROFESSOR OF PHYSICAL EDUCATION Work Phone: [facility] [place] Comment on above: Kyphosis of thoracic region, unspecified kyphosis type (Primary Dx); SONIYA (generalized anxiety disorder); Diaphoresis; Benign mole Refill Request Start: 07-20-2024 End: 07-20-2024 ambulatory TONI BARRERA Facility:[facility] [place] Start: 06-26-2024 End: 06-26-2024 Patient encounter procedure Terence BYRNES [facility] Comment on above: Pain, dental (Primar y Dx) Start: 06-26-2024 End: 06-26-2024 ambulatory TONI BARRERA Facility:[facility] [place] Start: 06-25-2024 End: 06-25-2024 Follow-up encounter Dorita Larkin APRN.PROFESSOR OF PHYSICAL EDUCATION Work Phone: [facility] Comment on above: Results Start: 06-18-2024 End: 06-18-2024 ambulatory SALIMA AlonsoYER Facility:[facility] Start: 06-05-2024 End: 06-07-2024 Follow-up encounter Dorita Larikn APRN.CNP Work Phone: [facility] [place] Start: 06-04-2024 End: 06-04-2024 ambulatory TONI HOLLY Facility:[facility] [place] Start: 05-17-2024 End: 05-17-2024 Patient encounter procedure Dorita Larkin APRN.CNP Work Phone: [facility] Comment on above: SONIYA (generalized anx iety disorder) (Primary Dx); Dizziness; Pre-syncope; Fatigue, unspecified type Start: 05-17-2024 End: 05-17-2024 ambulatory TONI BARRERA Facility:[facility] [place] Start: 05-17-2024 End: 05-17-2024 Patient encounter procedure Dalila Prasad [facility] Work Phone: Start: 05-17-2024 End: 05-17-2024 ambulatory Dalila Prasad Facility[place] Start: 04-04-2024 End: 04-04-2024 Office outpatient visit 25 minutes Juan Rankin MD Work Phone: [facility] [facility] Comment on above: POTS (postural ortho static tachycardia syndrome) (Primary Dx); Status post thoracic spinal fusion Start: 04-04-2024 ambulatory SELF SELF Facility:[facility] Start: 04-04-2024 ambulatory AMBER SALGUERO JR. Fac ility:[facility] Start: 04-04-2024 End: 04-04-2024 Subsequent hospital visit by physician Amber Salguero PA-C Work Phone: [facility] Comment on above: Arrived Start: 02-16-2024 End: 02-16-2024 ambulatory Alejandrina Madrid Facility[place] Start: 02-09-2024 End: 02-09-2024 Telephone encounter Dorita Larkin APRN.PROFESSOR OF PHYSICAL EDUCATION Work Phone: [facility] [place] Comment on above: Results Start: 02-07-2024 End: 02-07-2024 ambulatory TONI BARRERA Facility:[facility] [place] Start: 02-07-2024 End: 02-07-2024 Patient encounter procedure Dorita Larkin APRN.PROFESSOR OF PHYSICAL EDUCATION Work Phone: [facility] [place] Comment on above: Acute bilateral low back pain without sciatica (Primary Dx); Screening for depression; Vitamin B12 deficiency; Well adult exam Start: 02-07-2024 End: 02-07-2024 Patient encounter status Dorita Larkin APRN.PROFESSOR OF PHYSICAL EDUCATION Work Phone: [facility] Start: 02-06-2024 End: 02-06-2024 ambulatory Dorita Larkin APRN.PROFESSOR OF PHYSICAL EDUCATION Work Phone: [facility] Comment on above: Physical Start: 02-06-2024 End: 02-06-2024 E-mail encounter from caregiver Dorita Larkin APRN.PROFESSOR OF PHYSICAL EDUCATION Work Phone: [facility] [place] Start: 01-31-2024 ambulatory AMBER SALGUERO JR. Fac ility:[facility] Start: 01-24-2024 ambulatory AMBER SALGUERO JR. Fac ility:[facility] Start: 01-24-2024 End: 01-24-2024 Subsequent hospital visit by physician Amber Salguero PA-C Work Phone: [facility] Comment on above: Arrived Start: 01-17-2024 ambulatory SUKHJINDER Yadav y:[facility] Start: 01-09-2024 End: 01-09-2024 ambulatory Dorita Larkin APRN.PROFESSOR OF PHYSICAL EDUCATION Work Phone: [facility] Comment on above: Medication Start: 01-03-2024 End: 01-03-2024 Telephone encounter Dorita Larkin APRN.PROFESSOR OF PHYSICAL EDUCATION Work Phone: [facility] [place] Start: 01-02-2024 End: 01-02-2024 ambulatory DORITA LARKIN Facility:[facility] Start: 01-02-2024 End: 01-02-2024 Subsequent hospital visit by physician [facility] [place] Work Phone: Radiology Comment on above: Wheezing [R06.2] Start: 01-02-2024 End: 01-02-2024 ambulatory TONI BARRERA Facility:[facility] [place] Start: 01-02-2024 End: 01-02-2024 Patient encounter procedure Dorita Larkin APRN.PROFESSOR OF PHYSICAL EDUCATION Work Phone: [facility] [place] Comment on above: Acute otitis media, unspecified otitis media type (Primary Dx); Wheezing Start: 11-17-2023 End: 11-17-2023 ambulatory Deanna Parry NP Facility[place] Start: 10-07-2023 ambulatory SUKHJINDER GLASS [facility] y:[facility] Start: 09-28-2023 End: 09-28-2023 ambulatory Alejandrina Madrid Facility:[facility] Start: 09-15-2023 Chart abstracting Toni alas MD Work Phone: [facility] [place] Comment on above: Outside PT Start: 08-02-2023 End: 08-02-2023 Subsequent hospital visit by physician Amber Salguero PAC Work Phone: [facility] Comment on above: Arrived Start: 08-02-2023 ambulatory AMBER SALGUERO JR. [facility] ility:[facility] Start: 07-20-2023 ambulatory SELF SELF Facility:[facility] Start: 07-18-2023 Telephone encounter Toni Barrera MD Work Phone: [facility] [place] Comment on above: Fax to Lesly barnhart Start: 05-31-2023 End: 05-31-2023 Patient encounter procedure Dorita Larkin APRN.PROFESSOR OF PHYSICAL EDUCATION Work Phone: [facility] [place] Comment on above: Sore throat (Primary Dx); URI, acute; Bacterial sinusitis Start: 05-16-[address] Porsha Barrera Work Phone: [facility]-Physical Therapy Work Phone: Start: 04-14-2023 End: 04-14-2023 Postop follow up visit related to original px Juan Rankin MD Work Phone: [facility] Comment on above: S/P fusion of thorac ic spine (Primary Dx); Scheuermann's kyphosis Start: 04-14-2023 End: 04-14-2023 Subsequent hospital visit by physician Juan Rankin MD Work Phone: [facility] Comment on above: Arrived Start: 04-14-2023 ambulatory AMBER SALGUERO JR. [facility] Start: 03-28-2023 End: 03-28-[address] Toni Barrera Work Phone: [facility] Work Phone: Start: 03-10-2023 End: 03-10-[address] Toni Barrera Work Phone: [facility] Radiology Start: 03-03-2023 End: 03-03-2023 Postop follow up visit related to original px Juan Rankin MD Work Phone: [facility] Comment on above: S/P spinal surgery ( Primary Dx) Start: 03-03-2023 End: 03-03-2023 Subsequent hospital visit by physician Juan Rankin MD Work Phone: [facility] Comment on above: Arrived Start: 02-21-2023 Telephone encounter Dorita alcala APRN.[facility] Work Phone: [facility] Comment on above: Results Start: 02-18-2023 End: 02-18-[address] Toni Barrera Work Phone: [facility] Work Phone: Start: 02-18-2023 End: 02-18-[address] Toni Barrera Work Phone: [facility] Work Phone: Start: 02-17-2023 End: 02-17-2023 Subsequent hospital visit by physician [facility] [place] Work Phone: Radiology Comment on above: Adverse effect of tr eatment, subsequent encounter [T88.9XXD] Start: 02-17-2023 End: 02-17-2023 Patient encounter procedure Dorita Larkin APRN.PROFESSOR OF PHYSICAL EDUCATION Work Phone: [facility] Comment on above: Adverse effect of tr eatment, subsequent encounter (Primary Dx); Weakness of both lower extremities; Numbness and tingling of both lower extremities Start: 02-03-2023 End: 02-03-2023 Emergency department patient visit Dr. Toni Barrera Work Phone: [facility]-Emergency Department Work Phone: Start: 02-03-2023 End: 02-03-2023 Patient encounter procedure Vy Garibay MEDIA LIBRARIAN.PROFESSOR OF PHYSICAL EDUCATION Work Phone: [facility] Comment on above: S/P spinal fusion (P rimary Dx); Kyphosis of thoracic region, unspecified kyphosis type; Hypotension, unspecified hypotension type; Dizziness; Diaphoresis; SOB (shortness of breath) Start: 01-17-2023 End: 01-22-2023 Evaluation and management of inpatient Juan Rankin MD Work Phone: [id number] Comment on above: H/O spinal fusion Start: 01-03-2023 End: 01-03-[address] Toni Barrera Work Phone: [facility] Work Phone: Start: 01-03-2023 End: 01-03-2023 Subsequent hospital visit by physician Nichol Yang DO Work Phone: [facility] Comment on above: Arrived Start: 01-03-2023 End: 01-03-2023 Office consultation new/estab patient 60 min Poorvi D Trey DO Work Phone: Pre-Procedure Evaluation and [facility] Comment on above: Preop exam for inter nal medicine (Primary Dx); Kyphosis of thoracic region, unspecified kyphosis type Start: 01-03-2023 End: 01-03-2023 Patient encounter status Poorvi D Trey DO Work Phone: [facility] Start: 12-30-2022 ambulatory Dorita barriga MEDIA LIBRARIAN.PROFESSOR OF PHYSICAL EDUCATION Work Phone: [facility] [place] Start: 12-30-2022 [facility] visit new patient Josiah Larkin MEDIA LIBRARIAN.PROFESSOR OF PHYSICAL EDUCATION Work Phone: Family [facility] [place] Comment on above: New patient Start: 12-21-2022 End: 12-21-2022 Patient encounter procedure Tod Hayes MD Work Phone: [facility] Comment on above: Thoracic spine pain (Primary Dx); Kyphosis of thoracic region, unspecified kyphosis type Start: 12-20-[address] Porsha Barrera Work Phone: [facility]-Physical Therapy Work Phone: Start: 11-25-2022 Telephone encounter Dorita alcala MEDIA LIBRARIAN.PROFESSOR OF PHYSICAL EDUCATION Work Phone: [facility] Comment on above: Results Medication Question Start: 11-22-2022 End: 11-22-2022 Office outpatient visit 25 minutes Amber Salguero PAC Work Phone: [facility] Comment on above: Kyphosis of thoracic region, unspecified kyphosis type (Primary Dx) Start: 11-22-2022 End: 11-22-2022 Subsequent hospital visit by physician Amber Salguero PAC Work Phone: [facility] Comment on above: Arrived Start: 10-12-2022 ambulatory Dorita barriga APRN.PROFESSOR OF PHYSICAL EDUCATION Work Phone: Family [facility] Comment on above: Sleeping medicine Start: 10-12-2022 End: 10-12-[address] Toni Barrera Work Phone: [facility] Work Phone: Start: 09-10-2022 End: 09-10-2022 Subsequent hospital visit by physician Nina [facility] (I-Stat/1.5t) Work Phone: Radiology Comment on above: Closed fracture of r ight foot, initial encounter [S92.901A] Start: 08-24-2022 End: 08-24-2022 Patient encounter procedure Tod Hayes MD Work Phone: [facility] [place] Comment on above: Nightmares (Primary Dx) Start: 08-24-2022 Telephone encounter Randee lance [facility] Work Phone: Psychology Comment on above: Bh consult Start: 08-17-2022 Telephone encounter Jaxon Maria Work Phone: Podiatry Comment on above: bone stim Start: 08-16-2022 End: 08-16-2022 Patient encounter procedure Jaxon Spence Work Phone: Podiatry Comment on above: Sprain of right grea t toe, sequela (Primary Dx); Deformity of toe of right foot; Delayed union of fracture of toe of right foot; Closed fracture of right foot, initial encounter Start: 08-16-2022 End: 08-16-2022 Subsequent hospital visit by physician [facility] [place] Work Phone: Radiology Comment on above: Acquired deformity o f right toe [M20.61] Start: 08-10-2022 Orders Only Jaxon landaverde Work Phone: Podiatry Comment on above: Acquired deformity o f right toe (Primary Dx) Start: 07-13-2022 End: 07-13-2022 Patient encounter procedure Dorita Larkin APRN.CNP Work Phone: Family [facility] [place] Comment on above: Fall from ladder, benitez bsequent encounter (Primary Dx); Deformity of toe of right foot Start: 07-12-2022 End: 07-12-2022 Emergency department patient visit Dr. Toni Barrera Work Phone: [facility]-Emergency Department Start: 06-14-2022 Chart abstracting Toni alas MD Work Phone: [facility] Comment on above: Results Start: 06-10-2022 Chart abstracting Toni alas MD Work Phone: [facility] Comment on above: Outside PT/OT (Disch arge summary) Start: 06-07-2022 End: 06-07-[address] Toin Barrera Work Phone: [facility] Work Phone: Start: 06-07-2022 End: 06-07-[address] Toni Barrera Work Phone: [facility]-Laboratory, Specimen Start: 06-07-[address] Toni Barrera Work Phone: [facility] Start: 06-07-2022 End: 06-07-[address] Toni Barrera Work Phone: [facility] Start: 05-27-2022 End: 05-27-2022 Office outpatient visit 40 minutes Juan Rankin MD Work Phone: [facility] Comment on above: Kyphosis of thoracic region, unspecified kyphosis type (Primary Dx) Start: 05-27-2022 Telephone encounter Dorita alcala APRN.PROFESSOR OF PHYSICAL EDUCATION Work Phone: [facility] Comment on above: Results Start: 05-26-2022 End: 05-26-2022 Subsequent [facility] Start: 05-25-2022 End: 05-25-2022 Patient encounter procedure Dorita Larkin APRN.PROFESSOR OF PHYSICAL EDUCATION Work Phone: [facility] Comment on above: RUQ abdominal pain ( Primary Dx); LUQ abdominal pain; Fatigue, unspecified type Start: 05-03-2022 End: 05-03-[address] Toni Barrera Work Phone: [facility] Start: 04-26-2022 End: 04-26-[address] Toni Barrera Work Phone: [facility] Start: 04-22-2022 Telephone encounter Dorita alcala MEDIA LIBRARIAN.PROFESSOR OF PHYSICAL EDUCATION Work Phone: [facility] Comment on above: Results Start: 04-20-2022 End: 04-20-2022 [facility] Comment on above: Fall from ladder, benitez bsequent encounter [W11.XXXD] Start: 04-20-2022 End: 04-20-2022 Patient encounter procedure Dorita Larkin APRN.PROFESSOR OF PHYSICAL EDUCATION Work Phone: [facility] Comment on above: Fall from ladder, benitez bsequent encounter (Primary Dx); Acute bilateral low back pain without sciatica; Acute pain of right knee Start: 04-19-2022 End: 04-19-[address] Toni Barrera Work Phone: [facility] Start: 04-18-2022 Non-patient / Non-visit Dr. Israel Barrera Work Phone: [facility] Start: 04-18-2022 End: 04-18-2022 Emergency department patient visit Dr. Toni Barrera Work Phone: [facility]-Emergency Department Start: 04-14-2022 Chart abstracting Toni alas MD Work Phone: [facility] Comment on above: Physical Therapy Start: 04-14-2022 End: 04-14-[address] Toni Barrera Work Phone: [facility] Work Phone: Start: 04-14-2022 End: 04-14-[address] [facility] Start: 04-12-2022 End: 04-12-2022 Office outpatient new 45 minutes Juan Rankin MD Work Phone: [facility] [place] Comment on above: Chronic back pain, u nspecified back location, unspecified back pain laterality (Primary Dx); Kyphosis of thoracic region, unspecified kyphosis type Start: 03-30-2022 ambulatory Pcp (Historical) [facility] Start: 03-25-2022 Patient encounter status Toni Barrera MD Work Phone: [facility] Work Phone: Start: 03-25-2022 Encounter for genera l adult medical examination without abnormal findings DORITA TRAE [facility] Start: 03-24-2022 End: 03-24-2022 Patient encounter procedure Toni Barrera MD Work Phone: [facility] [place] Comment on above: Thoracic spine pain (Primary Dx); Kyphosis of thoracic region, unspecified kyphosis type Start: 03-24-2022 Telephone encounter Toni Barrera MD Work Phone: [facility] [place] Start: 03-03-2022 ambulatory Toni lieberman MD Work Phone: [facility] Comment on above: Sore Throat Start: 02-08-2022 End: 02-08-2022 ambulatory Edda Lyons APRN.PROFESSOR OF PHYSICAL EDUCATION Work Phone: Telemedicine Comment on above: Other acute sinusiti s, recurrence not specified (Primary Dx) Acute pharyngitis, u nspecified etiology (Primary Dx); Sinusitis, unspecified chronicity, unspecified location Start: 02-08-2022 End: 02-08-2022 Telemedicine consultation with patient Deric Esquivel PROFESSOR OF PHYSICAL EDUCATION Work Phone: [facility] [place] Start: 11-30-2021 End: 11-30-2021 Patient encounter procedure Wu Ferro MD Work Phone: Orthopaedics Comment on above: De Quervain's tenosy novitis (Primary Dx); Wrist tendonitis Start: 11-05-2021 End: 11-05-2021 Patient encounter procedure Erma Gonzalez PA-C Work Phone: [facility] [place] Comment on above: Nondisplaced fractur e of distal phalanx of right index finger, initial encounter for closed fracture (Primary Dx); Wrist tendonitis Start: 10-08-2021 ambulatory Toni lieberman MD Work Phone: [facility] [place] Comment on above: Covid19 Concern Start: 04-21-2020 Patient encounter status Toni Barrera MD Work Phone: [facility] Work Phone: Start: 04-27-2017 End: 04-27-2017 Emergency department patient visit Nodr No Doctor Assigned Facility:[facility] Start: 04-27-2017 End: 04-28-2017 Ambulatory Panchito Dewey Jucathy Facility:[facility] Procedures Date Procedure Procedure Detail Performing Clinician Start: 02-07-2024 Adult depression scr eening assessment Dorita Larkin APRN.PROFESSOR OF PHYSICAL EDUCATION Work Phone: Start: 01-24-2024 End: 01-24-2024 Radex spine thoracic 2 views Amber Salguero PA-C Work Phone: Start: 01-02-2024 Radiologic exam ches t 2 views Dorita Larkin APRN.PROFESSOR OF PHYSICAL EDUCATION Work Phone: Start: 08-02-2023 Radex entir thrc lmb r crv sac spi w/skull 2/3 vw Amber Salguero PAC Work Phone: Start: 05-31-2023 STREP A MOLECULAR (POC) Dorita Larkin APRN.PROFESSOR OF PHYSICAL EDUCATION Work Phone: Start: 04-14-2023 Radex entir thrc lmb r crv sac spi w/skull 2/3 vw Amber Salguero PAC Work Phone: Start: 03-10-2023 X-ray of cervical spine Dr. Toni Barrera Work Phone: Start: 03-10-2023 End: 03-10-2023 Plain X-ray of shoulder Dr. Toni lieberman Work Phone: Start: 03-03-2023 Radex entir thrc lmb r crv sac spi w/skull 2/3 vw Randee Marc Cindy MEDIA LIBRARIAN-PROFESSOR OF PHYSICAL EDUCATION Work Phone: Start: 02-18-2023 MRI of lumbar spine with contrast Dr. Toni Barrera Work Phone: Start: 02-18-2023 MRI of thoracic spin e with contrast Dr. Toni Barrera Work Phone: Start: 02-17-2023 Radex spine lumbosac ral 2/3 views Dorita Larkin MEDIA LIBRARIAN.PROFESSOR OF PHYSICAL EDUCATION Work Phone: Start: 01-20-2023 Blood count platelet automated Gabriel Saeed MD Work Phone: Start: 01-20-2023 Radiologic exam abdo men 1 view Douglas Quezada MD Work Phone: Start: 01-20-2023 Radex entir thrc lmb r crv sac spi w/skull 2/3 vw Jared Almonte Maiteradha DO Work Phone: Start: 01-20-2023 Basic metabolic pane l calcium total Gabriel Saeed MD Work Phone: Start: 01-18-2023 Basic metabolic pane l calcium total Gabriel Saeed MD Work Phone: Start: 01-18-2023 Basic metabolic pane l calcium total Gabriel Saeed MD Work Phone: Start: 01-17-2023 CARDIAC RHYTHM Other Ot her Start: 01-17-2023 Calcium ionized Edda MORENO Work Phone: Start: 01-17-2023 End: 01-17-2023 TRANSFUSE OR RED BLOOD CELLS Edda MORENO Work Phone: Start: 01-17-2023 Calcium ionized Edda MORENO Work Phone: Start: 01-17-2023 Calcium ionized Edda MORENO Work Phone: Start: 01-17-2023 Calcium ionized Edda Arenas Hali MORENO Work Phone: Start: 01-17-2023 End: 01-17-2023 Arthrodesis posterior/posterolateral thoracic Juan Rankin MD Work Phone: Start: 01-17-2023 End: 01-17-2023 Osteotomy spine posterior 3 column lumbar Juan Rankin MD Work Phone: Start: 01-17-2023 End: 01-17-2023 Stereotactic computer assisted px spinal Juan Rankin MD Work Phone: Start: 01-17-2023 ABORH TYPE RECONFIRMATION Kaitlin CAMPA Start: 01-17-2023 Gonadotropin chorion ic qualitative Juan Rankin MD Work Phone: Start: 01-03-2023 Antibody screen Poorvi Trey DO Work Phone: Start: 01-03-2023 Blood typing serologic abo Poorvi D Trey DO Work Phone: Start: 01-03-2023 CBC AND ELECTRONIC DIFF Poorvi D Trey DO Work Phone: Start: 01-03-2023 Complete blood count with white cell differential, automated Poorvi D Trey DO Work Phone: Start: 01-03-2023 PREPARE TO TRANSFUSE PLASMA Link Witt MD Work Phone: Start: 01-03-2023 PREPARE TO TRANSFUSE RED BLOOD CELLS Lnik Witt MD Work Phone: Start: 01-03-2023 EXTRA LIGHT BLUE TOP Po orvi D Trey DO Work Phone: Start: 01-03-2023 End: 01-03-2023 Prothrombin time Poorvi D Trey DO Work Phone: Start: 01-03-2023 PTT WITH MIXING STUDY P oorvi D Trey DO Work Phone: Start: 01-03-2023 Radiologic exam ches t 2 views Poorvi D Trey DO Work Phone: Start: 01-03-2023 Drug tst prsmv instr mnt chem analyzers pr date Poorvi D Trey DO Work Phone: Start: 01-03-2023 Urine test visual color cmprsn meths Poorvi D Trey DO Work Phone: Start: 01-03-2023 Urnls dip stick/tabl et reagent auto microscopy Poorvi D Trey DO Work Phone: Start: 01-03-2023 PREPARE TO TRANSFUSE OR RED BLOOD CELLS Poorvi D Trey DO Work Phone: Start: 11-22-2022 End: 11-22-2022 Radex spine thoracic 2 views Randee White MEDIA LIBRARIAN-PROFESSOR OF PHYSICAL EDUCATION Work Phone: Start: 09-10-2022 Mri lower extrem oth /thn jt w/o contr matrl Jaxon Spence Work Phone: Start: 08-16-2022 Radex foot complete minimum 3 views Jaxon Spence Work Phone: Start: 07-12-2022 Computed tomography of abdomen and pelvis with intravenous contrast Dr. Toni Barrera Work Phone: Start: 04-20-2022 Radex spine cervical 4 or 5 views Dorita Larkin MEDIA LIBRARIAN.PROFESSOR OF PHYSICAL EDUCATION Work Phone: Start: 04-19-2022 Plain X-ray of tibia and fibula Dr. Toni Barrera Work Phone: Start: 04-18-2022 X-ray of both feet Dr. Toni Barrera Work Phone: Start: 04-18-2022 Plain X-ray of tibia and fibula Dr. Toni Barrera Work Phone: Start: 11-05-2021 Adult depression scr eening assessment Erma Gonzalez PA-C Work Phone: Plan of Treatment Date Care Activity Detail Author Start: 10-22-2031 Tetanus vaccination TETANUS [facility] Start: 10-22-2031 Urine microalbumin profile [facility] Start: 06-07-2025 PAP TESTING PAP TESTING [facility] Start: 06-07-2025 Screening for malign ant neoplasm of cervix [facility] Start: 02-08-2025 End: 02-08-2025 Patient encounter procedure 02/08/2025 2:40 PM EST Office Visit [facility] [address] [place], [place] [id number] Dorita Larkin, TERRENCE.PROFESSOR OF PHYSICAL EDUCATION [address] [place], [place] [phone] annual physical [facility] Comment on above: annual physical Start: 02-06-2025 Covid-19 Vaccine ( season) Covid-19 Vaccine ( season) [facility] Comment on above: Postponed from 11/05 (Declined at this time) Start: 02-06-2025 Depression Screening Depression Scre ening [facility] Start: 11-05-2024 Influenza vaccination C [facility] Start: 09-03-2024 Influenza vaccination Influenza Vacc ine (#1) [facility] Comment on above: Postponed from 11/05 (Declined at this time) Start: 08-31-2024 End: 08-31-2024 Patient encounter procedure 08/31/2024 3:00 PM EDT Office Visit [facility] [address] [place], [place] [id number] Dorita Larkin, TERRENCE.PROFESSOR OF PHYSICAL EDUCATION [address] [place], [place] [phone] 6 week follow up [facility] Comment on above: 6 week follow up Start: 07-20-2024 End: 10-19-2024 Thyrotropin [Units/volume] in Serum or Plasma [facility] Work Phone: Comment on above: Expected: 07/20/2024 , Expires: 10/19/2024 Start: 07-20-2024 End: 10-19-2024 Thyroxine (T4) free [Mass/volume] in Serum or Plasma [facility] Comment on above: Expected: 07/20/2024 , Expires: 10/19/2024 Start: 07-20-2024 End: 10-19-2024 Triiodothyronine (T3) [Mass/volume] in Serum or Plasma [facility] Comment on above: Expected: 07/20/2024 , Expires: 10/19/2024 Start: 07-03-2024 End: 07-03-2024 Patient encounter procedure 07/03/2024 3:00 PM EDT Office Visit [facility] [address] [place] [address] Juan Rankin MD [address] [place] [id number] [facility] [place] Start: 06-18-2024 End: 06-18-2024 Admission to same day surgery center 06/18/2024 10:59 AM EDT - 06/18/2024 12:26 PM EDT [facility] [address] [place] [address] Salima Beal MD [address] [place] [address] [facility]T [facility] Comment on above: TILT TABLE Start: 06-18-2024 End: 06-18-2024 Cardiovascular function eval w/tilt table w/mntr TILT TABLE Dizziness 06/18/2024 10:59 AM EDT [facility] Start: 06-18-2024 Subsequent hospital visit by physician 06/18/2024 10:59 AM EDT Hospital Encounter [facility] [address] [place] [address] Salima Beal MD [address] [place], [place] [id number] (Fax) Dizziness [R42] [facility] Comment on above: Dizziness [R42] Start: 02-07-2024 End: 02-07-2024 Patient encounter procedure [facility] Comment on above: physical Start: 02-07-2024 End: 05-08-2024 CBC W Auto Differential panel - Blood [facility] Comment on above: Expected: 02/07/2024 , Expires: 05/08/2024 Start: 02-07-2024 End: 05-08-2024 Cobalamin (Vitamin B12) [Mass/volume] in Serum or Plasma [facility] Work Phone: Comment on above: Expected: 02/07/2024 , Expires: 05/08/2024 Start: 02-07-2024 End: 05-08-2024 Comprehensive metabolic 2000 panel - Serum or Plasma [facility] Comment on above: Expected: 02/07/2024 , Expires: 05/08/2024 Start: 02-04-2024 Covid-19 Vaccine (#1) Covid-19 Vacci ne (#1) [facility] Comment on above: Postponed from 03/04 (Declined at this time) Start: 02-04-2024 Covid-19 Vaccine () Covid-19 Vaccine () [facility] Comment on above: Postponed from 11/05 (Declined at this time) Start: 01-31-2024 End: 01-31-2024 Telemedicine consultation with patient 01/31/2024 2:15 PM EST Telemedicine [facility] [address] [place] [address] Amber Salguero Jr., PA-C [address] [facility] [address] [place] [address] [facility] Start: 11-06-2023 Covid-19 Vaccine ( season) Covid-19 Vaccine ( season) [facility] Start: 11-06-2023 Covid-19 Vaccine () Covid-19 Vaccine () [facility] Start: 11-06-2023 Influenza vaccination C [facility] Start: 09-04-2023 Influenza vaccination Influenza Vacc ine (#1) [facility] Comment on above: Postponed from 11/05 (Declined at this time) Start: 07-14-2023 End: 07-14-2023 Patient encounter procedure 07/14/2023 3:00 PM EDT Office Visit [facility] [address] [phone] Juan Rankin MD [address] [place] [phone] [facility] Start: 04-14-2023 End: 04-14-2023 Patient encounter procedure 04/14/2023 3:00 PM EST Office Visit [facility] [address] [place] [phone] Juan Rankin MD [address] [place] [address] [facility] Start: 03-07-2023 Behavioral Health Screening Behavioral Health Screening [facility] Start: 03-07-2023 [facility]: 02-24-2023 End: 02-24-2023 Patient encounter procedure 02/24/2023 3:15 PM EST Office Visit [facility] [address] [phone] Juan Rankin MD [address] [place] [phone] [facility] Start: 02-17-2023 End: 05-19-2023 CBC W Auto Differential panel - Blood CBC + DIFF Lab Routine Adverse effect of treatment, subsequent encounter Expected: 02/17/2023, Expires: 05/19/2023 [facility] Work Phone: Comment on above: Expected: 02/17/2023 , Expires: 05/19/2023 Start: 02-03-2023 End: 02-03-2023 [facility] Start: 01-31-2023 End: 01-31-2023 Patient encounter procedure 01/31/2023 2:00 PM EST Office Visit [facility] [address] [phone] Jose M Mcbride, Amber Luque, PAC [address] [facility] [address] [place] [address] Sp[facility] Care Outpatient [facility] Start: 01-17-2023 End: 01-17-2023 Arthrodesis posterior/posterolateral ea addl FUSION POSTERIOR LUMBAR EACH ADDL INTERSPACE ADD-ON PX Kyphosis of thoracic region, unspecified kyphosis type 01/17/2023 7:30 AM EST [facility] Start: 01-17-2023 End: 01-17-2023 Arthrodesis posterior/posterolateral lumbar FUSION POSTERIOR LUMBAR Kyphosis of thoracic region, unspecified kyphosis type 01/17/2023 7:30 AM EST [facility] Start: 01-17-2023 End: 01-17-2023 Arthrodesis posterior/posterolateral thoracic FUSION POSTERIOR THORACIC Kyphosis of thoracic region, unspecified kyphosis type 01/17/2023 7:30 AM EST [facility] Start: 01-17-2023 End: 01-17-2023 Evaluation and management of inpatient [facility] Comment on above: Kyphosis of thoracic region, unspecified kyphosis type FUSION POSTERIOR THO RACIC FUSION POSTERIOR THO RACIC T2-L2 Start: 01-17-2023 End: 01-17-2023 Osteotomy spine posterior 3 column lumbar OSTEOTOMY SPINE 3 COLUMNS POSTERIOR APPROACH 1 VERTEBRAL SEGMENT LUMBAR Kyphosis of thoracic region, unspecified kyphosis type 01/17/2023 7:30 AM EST [facility] Start: 01-17-2023 End: 01-17-2023 Posterior segmental instrumentation vrt se INSERTION SPINAL INSTRUMENTATION POSTERIOR SEGMENTAL ADD-ON PX (IP ONLY) Kyphosis of thoracic region, unspecified kyphosis type 01/17/2023 7:30 AM EST [facility] Start: 01-17-2023 End: 01-17-2023 Stereotactic computer assisted px spinal ASSISTANCE STEREOTACTIC NAVIGATION SPINAL ADD-ON PX Kyphosis of thoracic region, unspecified kyphosis type 01/17/2023 7:30 AM EST [facility] Start: 01-03-2023 End: 03-04-2023 SCREEN: MRSA/MSSA [facility] Comment on above: Expected: 01/03/2023 , Expires: 03/04/2023 Start: 01-03-2023 End: 03-04-2023 URINALYSIS REFLEX TO CULTURE [facility] Comment on above: Expected: 01/03/2023 , Expires: 03/04/2023 Start: 01-03-2023 End: 01-03-2023 Patient encounter procedure 01/03/2023 10:45 AM EDT Pre-Operative Assessment Pre-Procedure Evaluation and Assessment [facility] [address] [place] [phone] Nichol Yang, DO [address] [place] [address] Pre-Procedure Evaluation and Assessment [facility] Start: 11-23-2022 End: 11-24-2023 NICOTINE SCREEN URINE NICOTINE SCREEN URINE Lab Routine Kyphosis of thoracic region, unspecified kyphosis type Expected: 11/23/2022, Expires: 11/24/2023 [facility] Comment on above: Expected: 11/23/2022 , Expires: 11/24/2023 Start: 11-05-2022 Adult depression screening assessment DEPRESSION SCREENING [facility] Start: 11-05-2022 COVID-19 VACCINE ( season) COVID-19 VACCINE ( season) [facility] Start: 11-05-2022 Influenza vaccination C [facility] Start: 06-07-2022 Liquid based cervica l cytology screening [facility] Start: 05-27-2022 End: 05-27-2022 Patient encounter procedure 05/27/2022 Office Visit Multispecialty Juan Rankin MD [address] [place] [phone] [facility] Start: 05-25-2022 End: 07-25-2022 CBC W Auto Differential panel - Blood [facility] Work Phone: Comment on above: Expected: 05/25/2022 , Expires: 07/25/2022 Start: 05-25-2022 End: 07-25-2022 Comprehensive metabolic 2000 panel - Serum or Plasma [facility] Work Phone: Comment on above: Expected: 05/25/2022 , Expires: 07/25/2022 Start: 05-25-2022 End: 07-25-2022 Heterophile Ab [Presence] in Serum by Latex agglutination [facility] Work Phone: Comment on above: Expected: 05/25/2022 , Expires: 07/25/2022 Start: 05-03-2022 Patient referral [facility] Work Phone: Start: 04-19-2022 Patient referral [facility] Work Phone: Start: 04-18-2022 Smpl repair scalp/neck/ax/genit/trunk 2.6-7.5cm RPR S/N/AX/GEN/TRNK2.6-7.5CM [facility] Start: 03-07-2022 DEPRESSION ASSESSMENT DEPRESSION ASS [facility] Start: 11-05-2021 Influenza vaccination [facility] Start: 03-07-2021 DEPRESSION ASSESSMENT DEPRESSION ASS [facility] Start: 09-03-2019 PAP TESTING PAP TESTING [facility] Start: 09-03-2019 Screening for malign ant neoplasm of cervix CERVICAL CANCER SCREENING DISCUSSION [facility] Start: 2017 Urine microalbumin profile DTAP,TDAP,TD (1 - Tdap) [facility] Start: 2016 CHLAMYDIA SCREENING (18-24) CHLAMYDIA SCREENING (18-24) [facility] Start: 2016 Depression Screening Depression Scre ening [facility] Start: 2016 GC (GONORRHEA) SCREE JOSÉ (18-24) GC (GONORRHEA) SCREENING (18-) [facility] Start: 2016 HEPATITIS C SCREENING HEPATITIS C [facility] Start: 2016 Hepatitis C screening Hepatitis C [facility] Start: 2016 HIV SCREENING HIV SCREENING [facility] Start: 2016 HIV screening HIV Screening [facility] Start: 2014 Meningococcal B Vacc ine: Consider Based On Risk (1 of 2 - Patient Seeks Protection) Meningococcal B Vaccine: Consider Based On Risk (1 of 2 - Patient Seeks Protection) [facility] Start: 2014 MENINGOCOCCAL B: 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 based on risk (1 of 2 - Patient Seeks Protection) MENINGOCOCCAL B: Consider based on risk (1 of 2 - Patient Seeks Protection) [facility] Start: 2014 Screening for Chlamy megha trachomatis CHLAMYDIA SCREEN [facility] Start: 2013 HIV screening HIV SCREENING DISCUSSI ON [facility] Start: 2012 PEDS TO ADULT TRANSI TION ANNUAL ASSESSMENT PEDS TO ADULT TRANSITION ANNUAL ASSESSMENT [facility] Start: 2010 Adult depression screening assessment DEPRESSION SCREENING [facility] Start: 2010 PEDS TO ADULT TRANSI TION INITIAL DISCUSSION PEDS TO ADULT TRANSITION INITIAL DISCUSSION [facility] Start: 2009 HPV VACCINE (1 - 2-d ose series) HPV VACCINE (1 - 2-dose series) [facility] Start: 2008 MENINGOCOCCAL B: 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 based on risk (1 of 2 - Risk Bexsero 2-dose series) MENINGOCOCCAL B: Consider based on risk (1 of 2 - Risk Bexsero 2-dose series) [facility] Start: 2004 PNEUMOCOCCAL (1 - PCV) PNEUMOCOCCAL (1 - PCV) [facility] Start: 2004 Pneumococcal vaccination Pneum ococcal Vaccine (1 - PCV) [facility] Start: 2004 PNEUMOCOCCAL VACCINE SERIES (1 - PCV) PNEUMOCOCCAL VACCINE SERIES (1 - PCV) [facility] Start: 03-04-1999 COVID-19 VACCINE (#1) COVID-19 VACCI NE (#1) [facility] Start: 1998 Hepatitis C screening HEPATITI S C VIRUS SCREENING [facility] Start: 1998 Screening for Chlamy megha trachomatis GONORRHEA SCREEN [facility] Cardiovascular funct ion eval w/tilt table w/mntr TILT TABLE EVALUATION Cardiology Routine Dizziness Pre-syncope Fatigue, unspecified type Ordered: 05/17/2024 [facility] Work Phone: Comment on above: Ordered: 05/17/2024 End: 06-24-2023 Ct abdomen & pelvis w/contrast material CT ABD/PEL W IVCON Radiology STAT RUQ abdominal pain 1 Occurrences starting 05/25/2022 until 06/24/2023 [facility] Work Phone: Comment on above: 1 Occurrences starti ng 05/25/2022 until 06/24/2023 End: 04-04-2024 CT [facility]bar [facility] Comment on above: 1 Occurrences starti ng 04/04/2024 until 04/04/2024 End: 04-04-2024 CT Thoracic [facility] Comment on above: 1 Occurrences starti ng 04/04/2024 until 04/04/2024 Ecg routine ecg w/le ast 12 lds w/i&r PA ELECTROCARDIOGRAM, COMPLETE PA - OFFICE PERFORMED Routine Preop exam for internal medicine Kyphosis of thoracic region, unspecified kyphosis type Ordered: 01/03/2023 [facility] Comment on above: Ordered: 01/03/2023 End: 05-17-2025 Echocardiography ECHO Cardiology Routine Dizziness Pre-syncope Fatigue, unspecified type 1 Occurrences starting 05/17/2024 until 05/17/2025 [facility] Comment on above: 1 Occurrences starti ng 05/17/2024 until 05/17/2025 EXTRA MICRO EXTRA MICRO Flui ds Routine Preop exam for internal medicine Kyphosis of thoracic region, unspecified kyphosis type 01/03/2023 11:06 AM EDT [facility] End: 01-17-2024 MR Thoracic spine WO and W contrast IV [facility] Comment on above: 1 Occurrences starti ng 01/17/2024 until 01/17/2024 End: 09-15-2023 MRI FOOT/TOES WO IVCON RIGHT MRI FOOT/TOES WO IVCON RIGHT Radiology STAT Closed fracture of right foot, initial encounter 1 Occurrences starting 08/16/2022 until 09/15/2023 [facility] Work Phone: Comment on above: 1 Occurrences starti ng 08/16/2022 until 09/15/2023 End: 03-18-2024 Mri spinal canal lumbar w/o & w/contr matrl MRI LUMBAR SPINE WO/W IVCON Radiology STAT Adverse effect of treatment, subsequent encounter Numbness and tingling of both lower extremities 1 Occurrences starting 02/17/2023 until 03/18/2024 [facility] Work Phone: Comment on above: 1 Occurrences starti ng 02/17/2023 until 03/18/2024 End: 03-18-2024 Mri spinal canal thoracic w/o & w/contr matrl MRI THORACIC SPINE WO/W IVCON Radiology STAT Adverse effect of treatment, subsequent encounter 1 Occurrences starting 02/17/2023 until 03/18/2024 [facility] Work Phone: Comment on above: 1 Occurrences starti ng 02/17/2023 until 03/18/2024 Path report.final Dx Spec [facility] Patient Education [facility] Work Phone: Patient referral [facility] Work Phone: End: 05-20-2023 Radex spine cervical 4 or 5 views XR CERV OTHER 4V AP/LAT/OBL Radiology Routine Fall from ladder, subsequent encounter 1 Occurrences starting 04/20/2022 until 05/20/2023 [facility] Work Phone: Comment on above: 1 Occurrences starti ng 04/20/2022 until 05/20/2023 Radex spine cervical 4 or 5 views XR CERV OTHER 4V AP/LAT/OBL Radiology Routine Fall from ladder, subsequent encounter 04/20/2022 11:13 AM 2NDNATURE [facility] Work Phone: End: 05-20-2023 Radex spine lumbosacral 2/3 views XR LUMBAR LIMITED 2V AP/LAT Radiology Routine Fall from ladder, subsequent encounter 1 Occurrences starting 04/20/2022 until 05/20/2023 [facility] Work Phone: Comment on above: 1 Occurrences starti ng 04/20/2022 until 05/20/2023 Radex spine lumbosac ral 2/3 views XR LUMBAR LIMITED 2V AP/LAT Radiology Routine Fall from ladder, subsequent encounter 04/20/2022 11:13 AM 2NDNATURE [facility] Work Phone: End: 03-18-2024 Radex spine lumbosacral 2/3 views XR LUMBAR LIMITED 2V AP/LAT Radiology Routine Adverse effect of treatment, subsequent encounter Weakness of both lower extremities Numbness and tingling of both lower extremities 1 Occurrences starting 02/17/2023 until 03/18/2024 [facility] Work Phone: Comment on above: 1 Occurrences starti ng 02/17/2023 until 03/18/2024 Radex spine lumbosac ral 2/3 views XR LUMBAR LIMITED 2V AP/LAT Radiology Routine Adverse effect of treatment, subsequent encounter Weakness of both lower extremities Numbness and tingling of both lower extremities 02/17/2023 4:01 PM [facility] Work Phone: End: 05-20-2023 Radex spine thoracic 2 views XR THORACIC LIMITED 2V AP/LAT Radiology Routine Fall from ladder, subsequent encounter 1 Occurrences starting 04/20/2022 until 05/20/2023 [facility] Work Phone: Comment on above: 1 Occurrences starti ng 04/20/2022 until 05/20/2023 Radex spine thoracic 2 views XR THORACIC LIMITED 2V AP/LAT Radiology Routine Fall from ladder, subsequent encounter 04/20/2022 11:13 AM [facility] Work Phone: End: 03-18-2024 Radex spine thoracic 3 views XR THORACIC GENERAL 3V AP/LAT/SWIMMERS Radiology Routine Adverse effect of treatment, subsequent encounter Weakness of both lower extremities Numbness and tingling of both lower extremities 1 Occurrences starting 02/17/2023 until 03/18/2024 [facility] Work Phone: Comment on above: 1 Occurrences starti ng 02/17/2023 until 03/18/2024 Radex spine thoracic 3 views XR THORACIC GENERAL 3V AP/LAT/SWIMMERS Radiology Routine Adverse effect of treatment, subsequent encounter Weakness of both lower extremities Numbness and tingling of both lower extremities 02/17/2023 4:01 PM [facility] Work Phone: End: 01-17-2023 RF Greater than [facility] hour [facility] Comment on above: One Time for 1 Occur rences starting 01/17/2023 until 01/17/2023 End: 12-05-2022 XR DIGIT GENERAL 3V FRONTAL/LAT/OBL RIGHT XR DIGIT GENERAL 3V FRONTAL/LAT/OBL RIGHT Radiology Routine Nondisplaced fracture of distal phalanx of right index finger, initial encounter for closed fracture 1 Occurrences starting 11/05/2021 until 12/05/2022 [facility] Work Phone: Comment on above: 1 Occurrences starti ng 11/05/2021 until 12/05/2022 End: 09-09-2023 XR FOOT GENERAL 3V AP/LAT/OBL RIGHT XR FOOT GENERAL 3V AP/LAT/OBL RIGHT Radiology Routine Acquired deformity of right toe 1 Occurrences starting 08/10/2022 until 09/09/2023 [facility] Work Phone: Comment on above: 1 Occurrences starti ng 08/10/2022 until 09/09/2023 [facility] Immunizations Immunization Date Immunization Notes Care Provider Fa [facility] 10-21-2021 tetanus toxoid, redu bridgette diphtheria toxoid, and acellular pertussis vaccine, adsorbed Erma Gonzalez PA-C Work Phone: [facility] 06-28-2019 diphtheria, tetanus toxoids and acellular pertussis vaccine, unspecified formulation Erma Gonzalez PA-C Work Phone: [facility] 06-28-2019 tetanus toxoid, redu bridgette diphtheria toxoid, and acellular pertussis vaccine, adsorbed Erma Gonzalez PA-C Work Phone: [facility] 11-03-2015 Human Papillomavirus 9-valent vaccine Erma Gonzalez PA-C Work Phone: [facility] 11-03-2015 meningococcal oligosaccharide (groups A, C, Y and W-135) diphtheria toxoid conjugate vaccine (MCV4O) Erma Gonzalez PA-C Work Phone: [facility] 11-03-2015 varicella virus vaccine Payton Gonzalez PA-C Work Phone: [facility] 10-09-2010 human papilloma viru s vaccine, quadrivalent Ermami BYRNES-C Work Phone: [facility] 10-09-2010 meningococcal polysaccharide (groups A, C, Y and W-135) diphtheria toxoid conjugate vaccine (MCV4P) Erma BYRNES-C Work Phone: [facility] 10-09-2010 tetanus toxoid, redu bridgette diphtheria toxoid, and acellular pertussis vaccine, adsorbed Ermami BYRNES-C Work Phone: [facility] 10-07-2003 diphtheria, tetanus toxoids and acellular pertussis vaccine, unspecified formulation Erma BYRNES-C Work Phone: [facility] 10-07-2003 measles, mumps and r ubella virus vaccine Erma BYRNES-C Work Phone: [facility] 10-07-2003 poliovirus vaccine, unspecified formulation Erma BYRNES-C Work Phone: [facility] 02-12-2002 diphtheria, tetanus toxoids and acellular pertussis vaccine, unspecified formulation Erma BYRNES-C Work Phone: [facility] 02-12-2002 haemophilus influenz ae type b vaccine, conjugate unspecified formulation Erma BYRNES-C Work Phone: [facility] 02-12-2002 varicella virus vaccine Payton BYRNES-C Work Phone: [facility] 09-25-1999 measles, mumps and r ubella virus vaccine Erma BYRNES-C Work Phone: [facility] 08-10-1999 diphtheria, tetanus toxoids and acellular pertussis vaccine, unspecified formulation Erma BYRNES-C Work Phone: [facility] 08-10-1999 haemophilus influenz ae type b conjugate and Hepatitis B vaccine Erma BYRNES-C Work Phone: [facility] 08-10-1999 poliovirus vaccine, unspecified formulation Erma BYRNES-C Work Phone: [facility] 02-13-1999 diphtheria, tetanus toxoids and acellular pertussis vaccine, unspecified formulation Erma Gonzalez PA-C Work Phone: [facility] 02-13-1999 haemophilus influenz ae type b vaccine, conjugate unspecified formulation Erma Gonzalez PA-C Work Phone: [facility] 02-13-1999 poliovirus vaccine, unspecified formulation Erma Gonzalez PA-C Work Phone: [facility] 1998 diphtheria, tetanus toxoids and acellular pertussis vaccine, unspecified formulation Erma Gonzalez PA-C Work Phone: [facility] 1998 haemophilus influenz ae type b vaccine, conjugate unspecified formulation Erma Gonzalez PA-C Work Phone: [facility] 1998 hepatitis B vaccine, pediatric or pediatric/adolescent dosage Erma Carlos PA-C Work Phone: [facility] 1998 poliovirus vaccine, unspecified formulation Erma Gonzalez PA-C Work Phone: [facility] 1998 hepatitis B vaccine, pediatric or pediatric/adolescent dosage Erma Gonzalez PA-C Work Phone: [facility] Payers Date Payer Category Payer Self-pay [id number] 2022 Medicaid [id number] 2020 Medicaid [facility] MEDICAID [facility] [employer] MEDICAID [id number] 2020-Present [phone] [address] [place] [address] Medicaid [id number] 2020 Medicaid [id number] 2018 Private Health Insurance 1998 Unknown [id number]. 594 1998 Unknown [id number]. 594 1998 Unknown [id number] 2.840.1.144156.3.579.2. 594 1998 Unknown [id number] 2.0.1.894460.3.579.2. 594 1998 Unknown [id number] 2.840.1.459019.3.579.2. 594 1998 Unknown [id number] 2.0.1.409731.3.579.2. 594 1998 Unknown [id number] 2.0.1.478483.3.579.2. 594 1998 Unknown [id number] 2..1.413490.3.579.2. 594 1998 Unknown [id number] ..[id number]. 594 1998 Unknown [id number] .[id number]. 594 1998 Unknown [id number]. 594 1998 Unknown [id number] 04.22.830.1.340973.3.579.2. 594 1998 Unknown [id number]. 594 Unknown [id number] Unknown [id number]. 462 Unknown [id number]. 462 Unknown [id number] 840.1.479630.3.579.2. 462 Unknown [id number] 2.16.840.1.849436.3.579.2. 462 Unknown [id number] 2.16.840.1.367790.3.579.2. 462 Unknown [id number] 2.16.840.1.515495.3.579.2. 462 Unknown [id number]. 462 Social History Date Type Detail Facility Start: 04-21-2020 End: 09-28-2023 Tobacco smoking status NHIS Smokes tobacco daily [facility] Start: 04-21-2020 End: 06-26-2024 Tobacco use and exposure Smokeless tobacco non-user [facility] Start: 07-08-2020 End: 08-08-2024 Alcohol intake Lifetime non-drinker (finding) [facility] Start: 04-21-2020 End: 02-08-2022 History SDOH Alcohol Frequency 1 [facility] Start: 04-21-2020 End: 11-05-2021 Tobacco Comment 2 cigs per day [facility] Start: 1998 Sex Assigned At Not on file [facility] Start: 12-05-2018 End: 12-05-2022 History of tobacco use Cigarette Smoker [facility] Start: 10-26-2021 End: 11-30-2021 Exposure to SARS-CoV-2 (event) Not sure [facility] Start: 02-08-2022 History SDOH Alcohol Std Drinks 0 [facility] Start: 02-08-2022 History SDOH Social Connections Phone 5 [facility] Start: 02-08-2022 History SDOH Social Connections Membership 2 [facility] Start: 02-08-2022 History SDOH Social Connections Living 7 [facility] Start: 02-08-2022 History SDOH Physica l Activity MPS 12 [facility] Start: 02-08-2022 History SDOH Financial 4 [facility] Start: 1998 Sex Assigned At Female C [facility] Start: 06-07-2022 End: 03-28-2023 Tobacco smoking status MAIS Tobacco smoking consumption unknown [facility] Start: 04-02-2022 End: 04-12-2022 Exposure to SARS-CoV-2 (event) Unable to assess [facility] Start: 04-04-2019 None [facility] Start: 04-04-2019 With Family [facility] Start: 07-13-2022 End: 08-16-2022 Cigarettes smoked current (pack per day) - Reported 0.5 [facility] Start: 02-08-2022 End: 07-13-2022 Social connection and isolation panel [facility] Do you belong to any clubs or organizations such as denominational groups, unions, fraternal or athletic groups, or school groups? No [facility] Are you now , , , , never or living with a partner? Never [facility] How often to you hav e a drink containing alcohol? Never [facility] How many standard drinks containing alcohol do you have on a typical day? Patient does not drink [facility] How hard is it for y ou to pay for the very basics like food, housing, medical care, and heating Not very hard [facility] Do you feel stress - tense, restless, nervous, or anxious, or unable to sleep at night because your mind is troubled all the time - these days [OSQ] Not at all [facility] (I/We) worried wheraymundo er (my/our) food would run out before (I/we) got money to buy more. Never true [facility] Start: 02-08-2022 Gender identity Identifies as female gender (finding) [facility] Start: 12-21-2022 End: 06-26-2024 Tobacco smoking status NHIS Ex-smoker [facility] Start: 12-05-2018 End: 12-05-2022 History of tobacco use Current smoker [facility] NEGATED: Highlighted row [facility] Medical Equipment Procedure Code Equipment Code Equipment Origin al Text Equipment Identifier Dates Fiber Osteoamp Select 5.0 - [id number] Start: 01-17-2023 Screw Verse Pedi Ti 5.0x35 - [id number] Start: 01-17-2023 Therafuze Fbg Fi michael Bag 2 Level Large - [id number] Start: 01-17-2023 Therafuze Dbf Fi michael Boat 3 Level - [id number] Start: 01-17-2023 Therafuze Fbg Fi michael Bag 2 Level Large - [id number] Start: 01-17-2023 Therafuze Dbf Fi michael Boat 3 Level - [id number] Start: 01-17-2023 Therafuze Fbg Fi michael Bag 1 Level Small - [id number] Start: 01-17-2023 Therafuze Fbg Fi michael Bag 1 Level Small - [id number] Start: 01-17-2023 Therafuze Fbg Fi michael Bag 2 Level Large - [id number] Start: 01-17-2023 Screw Verse Pedi Ti 5.0x40 - [id number] Start: 01-17-2023 Screw Verse Pedi Ti 5.0x40 - [id number]_[id number] Start: 01-17-2023 Screw Verse Pedi Ti 5.0x40 - [id number]_[id number] Start: 01-17-2023 Screw Verse Pedi Ti 5.0x40 - [id number]_[id number] Start: 01-17-2023 Screw Verse Pedi Ti 6.0x45 - [id number]_imp Start: 01-17-2023 Screw Verse Pedi Ti 6.0x45 - [id number]_imp Start: 01-17-2023 Screw Verse Pedi Ti 6.0x45 - [id number]_imp Start: 01-17-2023 Screw Verse Pedi Ti 6.0x45 - [id number]_imp Start: 01-17-2023 Screw Verse Pedi Ti 5.0x40 - [id number]_imp Start: 01-17-2023 Screw Verse Pedi Ti 6.0x45 - [id number] Start: 01-17-2023 Screw Verse Pedi Ti 6.0x45 - [id number]_[id number] Start: 01-17-2023 Screw Verse Pedi Ti 5.0x35 - [id number]_imp Start: 01-17-2023 Screw Verse Pedi Ti 6.0x45 - [id number]_imp Start: 01-17-2023 Screw Verse Pedi Ti 6.0x45 - [id number]_imp Start: 01-17-2023 Screw Verse Pedi Ti 6.0x45 - [id number]_imp Start: 01-17-2023 Screw Set Verse Unitized - [id number]_imp Start: 01-17-2023 Albina Spinal 5.5mm Precontour Titanium 364mm - [id number] Start: 01-17-2023 Albina Spinal 5.5mm Precontour Titanium 364mm - [id number]_imp Start: 01-17-2023 Screw Verse Pedi Ti 6.0x45 - [id number]_imp Start: 01-17-2023 Screw Set Verse Unitized - [id number]_imp Start: 01-17-2023 Screw Set Verse Unitized - [id number]_imp Start: 01-17-2023 Screw Set Verse Unitized - [id number]_imp Start: 01-17-2023 Screw Verse Pedi Ti 5.0x40 - [id number]_imp Start: 01-17-2023 Screw Set Verse Unitized - [id number]_imp Start: 01-17-2023 Screw Set Verse Unitized - [id number] [id number]_imp Start: 01-17-2023 Screw Set Verse Unitized - [id number]_imp Start: 01-17-2023 Screw Set Verse Unitized - [id number] [id number]_imp Start: 01-17-2023 Screw Set Verse Unitized - [id number] 1237722_imp Start: 01-17-2023 Screw Set Verse Unitized - [id number] [id number]_imp Start: 01-17-2023 Screw Set Verse Unitized - [id number] 1237724_imp Start: 01-17-2023 Screw Set Verse Unitized - [id number] [id number]_imp Start: 01-17-2023 Screw Set Verse Unitized - [id number] [id number]_imp Start: 01-17-2023 Screw Set Verse Unitized - [id number] [id number]_imp Start: 01-17-2023 Screw Verse Pedi Ti 5.0x40 - [id number]_imp Start: 01-17-2023 Screw Set Verse Unitized - [id number] [id number]_imp Start: 01-17-2023 Screw Set Verse Unitized - [id number] 1237729_imp Start: 01-17-2023 Screw Set Verse Unitized - [id number] 1237730_imp Start: 01-17-2023 Screw Set Verse Unitized - [id number] 1237731_imp Start: 01-17-2023 Screw Set Verse Unitized - [id number] [id number]_imp Start: 01-17-2023 Screw Set Verse Unitized - [id number] [id number]_imp Start: 01-17-2023 Screw Set Verse Unitized - [id number] 1237734_imp Start: 01-17-2023 Screw Set Verse Unitized - [id number] 1237735_imp Start: 01-17-2023 Screw Set Verse Unitized - [id number] [id number]_imp Start: 01-17-2023 Screw Set Verse Unitized - [id number] 1237737_imp Start: 01-17-2023 Screw Verse Pedi Ti 5.0x40 - [id number]_imp Start: 01-17-2023 Screw Set Verse Unitized - [id number] [id number]_imp Start: 01-17-2023 Screw Set Verse Unitized - [id number] [id number]_imp Start: 01-17-2023 Screw Verse Pedi Ti 5.0x30 - [id number] [id number]_imp Start: 01-17-2023 Screw Verse Pedi Ti 5.0x30 - [id number] [id number]_imp Start: 01-17-2023 Screw Verse Pedi Ti 5.0x40 - [id number] [id number]_imp Start: 01-17-2023 Screw Verse Pedi Ti 5.0x40 - [id number] 1237687_imp Start: 01-17-2023 Screw Verse Pedi Ti 5.0x40 - [id number] 1237688_imp Start: 01-17-2023 Screw Verse Pedi Ti 5.0x40 - [id number] [id number]_imp Start: 01-17-2023 Mental Status Date Assessment Result Facility 02-03-2023 Cognitive function Level Of Cons ciousness Awake;Alert;Appropriate;Follow s Commands [facility] Work Phone: Clinical Notes 10-08-2021 to 09-03-2024 Dorita Larkin APRN.PROFESSOR OF PHYSICAL EDUCATION - 09/03/2024 3:07 PM EDTPodlogarLena APRN.CNP - 08/08/2024 2:42 PM EDTTelephone Encounter - John Perales MA - 07/23/2024 8:40 AM EDT Note Date & Type Note Facility 09-03-2024 Note HNO ID: [id number] Author: DORITA LARKIN APRN.PROFESSOR OF PHYSICAL EDUCATION Service: ? Author Type: Nurse Practitioner Type: Progress Notes Filed: 09/03/2024 15:17 Note Text: Chief Complaint Patient presents with: Follow Up HPI Aniyah Hodgson is a 24 year old female who presents here today for Above Complaints. Patient presents for medication follow up. Patient zoloft increased on 07/20/2024 and reports she is feeling better. Past medical history, appointments, medications, allergies reviewed. 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 S/p surgery 01/17/2023 [facility] Thoracic spine pain 04/29/2020 Well adult exam 04/21/2020 Last done: 04/21/2020 Previous Surgical History PAST SURGICAL HISTORY Procedure Laterality Date CYST/MOLE REMOVAL Left 2003 ganglion cyst IUD REMOVAL 08/02/2022 surgically removed PAST SURGICAL HISTORY OF 01/17/2023 T2-L2 posterior spinal arthrodesis and spinal instrumentation, [facility] SKIN BX, 1 LESION 2004 mole removal TYMPANOSTOMY GENERAL ANESTHESIA Bilateral 2009 Family History FAMILY HISTORY Problem Relation Age of Onset Ovarian cancer Maternal Grandmother Ovarian cancer Paternal Grandmother Patient Allergies ALLERGIES Allergen Reactions Augmentin [Amoxicil* Mental Status Change Patient states she was punching things and didn't know where she was Current Medications Current Outpatient Medications on File Prior to Visit Medication Sig sertraline (ZOLOFT) 50 mg tablet Take 1.5 tablets by mouth once daily. tiZANidine (ZANAFLEX) 4 mg tablet Take 1 tablet by mouth at bedtime as needed. busPIRone (BUSPAR) 5 mg tablet Take 1 tablet by mouth daily at bedtime. No current facility-administered medications on file prior to visit. Social History Social History Tobacco Use Smoking status: Former Current packs/day: 0.00 Average packs/day: 0.5 packs/day for 4.0 years (2.0 ttl pk-yrs) Types: Cigarettes Start date: 12/05/2018 Quit date: 12/05/2022 Years since quittin.7 Smokeless tobacco: Never Tobacco comments: 2 cigs per day Vaping Use Vaping status: Never Used Substance Use Topics Alcohol use: Never Drug use: Never Review of Symptoms REVIEW OF SYSTEMS SEE HPI EXAM: BP 112/76 Pulse 70 Wt 74.8 kg (165 lb) LMP 06/28/2022 (Approximate) BMI 25.60 kg/m? General Appearance: Well appearing, alert, in no acute distress, well-hydrated, well nourished.. Health Maintenance List Hepatitis C Screening Never done HIV Screening Never done Covid-19 Vaccine( season) due on 02/06/2025 Influenza Vaccine(Season Ended) due on 11/05/2024 Depression Screening due on 02/06/2025 Cervical Cancer Screening due on 06/07/2025 DTaP,Tdap,Td Vaccine(10 - Td or Tdap) due on 10/22/2031 Hepatitis B Vaccine Completed HPV Vaccine Completed Data reviewed PHQ-9 11/05/2021 02/07/2024 07/20/2024 09/03/2024 PHQ-9 Scores Little interest or pleasure in doing things: Not at all Not at all More than half the days Not at all Feeling down, depressed, or hopeless: Not at all Not at all Not at all Not at all Trouble falling or staying asleep, or sleeping too much - - More than half the days More than half the days Feeling tired or having little energy - - Several days Not at all Poor appetite or overeating - - Not at all Not at all Feeling bad about yourself - or that you are a failure or have let yourself or your family down - - Not at all Not at all Trouble concentrating on things, such as reading the newspaper or watching television - - Several days Not at all Moving or speaking so slowly that other people could have noticed. Or the opposite - being so fidgety or restless that you have been moving around a lot more than usual - - Not at all Not at all Thoughts that you would be better off , or of hurting yourself in some way - - Not at all Not at all PHQ-9 Score - - 6 2 SONIYA-7 05/17/2024 07/20/2024 09/03/2024 SONIYA-7 All Questions Feeling nervous, anxious, or on edge Nearly Everyday Several days Not at all Not being able to stop or control worrying Several days Not at all Not at all Worrying too much about different things Several days Not at all Several days Trouble relaxing Nearly Everyday Not at all Not at all Being so restless that it is hard to sit still Not at all More than half the days Not at all Becoming easily annoyed or irritable Not at all Several days Several days Feeling afraid, as if something awful might happen Nearly Everyday Several days Not at all SONIYA-7 Score 11 5 2 ASSESSMENT/PLAN: 1. SONIYA (generalized anxiety disorder) - ICD9: 300.02, ICD10: F41.1 - SERTRALINE 50 MG TABLET - BUSPIRONE 5 MG TABLET Dorita Larkin APRN.[facility] 09-03-2024 History of Presen t illness Narrative Chief Complaint Patient presents with: Follow Up HPI Aniyah Hodgson is a 24 year old female who presents here today for Above Complaints. Patient presents for medication follow up. Patient zoloft increased on 07/20/2024 and reports she is feeling better. Past medical history, appointments, medications, allergies reviewed. 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 S/p surgery 01/17/2023 at [facility] Thoracic spine pain 04/29/2020 Well adult exam 04/21/2020 Last done: 04/21/2020 Previous Surgical History PAST SURGICAL HISTORY Procedure Laterality Date CYST/MOLE REMOVAL Left 2003 ganglion cyst IUD REMOVAL 08/02/2022 surgically removed PAST SURGICAL HISTORY OF 01/17/2023 T2-L2 posterior spinal arthrodesis and spinal instrumentation, [facility] SKIN BX, 1 LESION 2004 mole removal TYMPANOSTOMY GENERAL ANESTHESIA Bilateral 2008 Family History FAMILY HISTORY Problem Relation Age of Onset Ovarian cancer Maternal Grandmother Ovarian cancer Paternal Grandmother Patient Allergies ALLERGIES Allergen Reactions Augmentin [Amoxicil* Mental Status Change Patient states she was punching things and didn't know where she was Current Medications Current Outpatient Medications on File Prior to Visit Medication Sig sertraline (ZOLOFT) 50 mg tablet Take 1.5 tablets by mouth once daily. tiZANidine (ZANAFLEX) 4 mg tablet Take 1 tablet by mouth at bedtime as needed. busPIRone (BUSPAR) 5 mg tablet Take 1 tablet by mouth daily at bedtime. No current facility-administered medications on file prior to visit. Social History Social History Tobacco Use Smoking status: Former Current packs/day: 0.00 Average packs/day: 0.5 packs/day for 4.0 years (2.0 ttl pk-yrs) Types: Cigarettes Start date: 12/05/2018 Quit date: 12/05/2022 Years since quittin.7 Smokeless tobacco: Never Tobacco comments: 2 cigs per day Vaping Use Vaping status: Never Used Substance Use Topics Alcohol use: Never Drug use: Never Review of Symptoms REVIEW OF SYSTEMS SEE HPI EXAM: BP 112/76 Pulse 70 Wt 74.8 kg (165 lb) LMP 06/28/2022 (Approximate) BMI 25.60 kg/m General Appearance: Well appearing, alert, in no acute distress, well-hydrated, well nourished.. Health Maintenance List Hepatitis C Screening Never done HIV Screening Never done Covid-19 Vaccine( season) due on 02/06/2025 Influenza Vaccine(Season Ended) due on 11/05/2024 Depression Screening due on 02/06/2025 Cervical Cancer Screening due on 06/07/2025 DTaP,Tdap,Td Vaccine(10 - Td or Tdap) due on 10/22/2031 Hepatitis B Vaccine Completed HPV Vaccine Completed Data reviewed PHQ-9 11/05/2021 02/07/2024 07/20/2024 09/03/2024 PHQ-9 Scores Little interest or pleasure in doing things: Not at all Not at all More than half the days Not at all Feeling down, depressed, or hopeless: Not at all Not at all Not at all Not at all Trouble falling or staying asleep, or sleeping too much - - More than half the days More than half the days Feeling tired or having little energy - - Several days Not at all Poor appetite or overeating - - Not at all Not at all Feeling bad about yourself - or that you are a failure or have let yourself or your family down - - Not at all Not at all Trouble concentrating on things, such as reading the newspaper or watching television - - Several days Not at all Moving or speaking so slowly that other people could have noticed. Or the opposite - being so fidgety or restless that you have been moving around a lot more than usual - - Not at all Not at all Thoughts that you would be better off , or of hurting yourself in some way - - Not at all Not at all PHQ-9 Score - - 6 2 SONIYA-7 05/17/2024 07/20/2024 09/03/2024 SONIYA-7 All Questions Feeling nervous, anxious, or on edge Nearly Everyday Several days Not at all Not being able to stop or control worrying Several days Not at all Not at all Worrying too much about different things Several days Not at all Several days Trouble relaxing Nearly Everyday Not at all Not at all Being so restless that it is hard to sit still Not at all More than half the days Not at all Becoming easily annoyed or irritable Not at all Several days Several days Feeling afraid, as if something awful might happen Nearly Everyday Several days Not at all SONIYA-7 Score 11 5 2 ASSESSMENT/PLAN: 1. SONIYA (generalized anxiety disorder) - ICD9: 300.02, ICD10: F41.1 - SERTRALINE 50 MG TABLET - BUSPIRONE 5 MG TABLET Dorita Larkin APRN.PROFESSOR OF PHYSICAL EDUCATION documented in this encounter [facility] 08-08-2024 Note HNO ID: [id number] Author: PODLOGLENA MONTELONGO APRN.PROFESSOR OF PHYSICAL EDUCATION Service: ? Author Type: Nurse Practitioner Type: Progress Notes Filed: 08/08/2024 14:58 Note Text: 08/08/2024 Patient presents with: Derm Problem: Had mole removed x7 days ago on right arm. Worried it is infected. Recording using [employer] software for draft documentation of the visit was discussed with the patient/authorized medical customer service representative; all questions welcomed and answered. Patient/authorized medical customer service representative agreed to proceed SUBJECTIVE: This is a 23 year old that is here today for Above Complaints Mole Removal: - Mole removed from the right antecubital area one week ago. - No pathology results received yet; initial impression was benign. - Denies fevers or chills. - Noted minimal yellow drainage yesterday when removing a Band-Aid; denies significant drainage. - Concerned about healing due to frequent irritation from clothing. 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 tiZANidine (ZANAFLEX) 4 mg tablet Take 1 tablet by mouth at bedtime as needed. busPIRone (BUSPAR) 5 mg tablet Take 1 tablet by mouth daily at bedtime. No current facility-administered medications for this visit. Medications and allergies reviewed by this provider. SOCIAL HISTORY Social History Tobacco Use Smoking status: Former Current packs/day: 0.00 Average packs/day: 0.5 packs/day for 4.0 years (2.0 ttl pk-yrs) Types: Cigarettes Start date: 12/05/2018 Quit date: 12/05/2022 Years since quittin.6 Smokeless tobacco: Never Tobacco comments: 2 cigs per day Vaping Use Vaping status: Never Used Substance Use Topics Alcohol use: Never Drug use: Never REVIEW OF SYSTEMS OBJECTIVE: BP 106/72 Pulse 82 Temp 36.8 ?C (98.2 ?F) Resp 18 Wt 74.8 kg (164 lb 12.8 oz) LMP 06/28/2022 (Approximate) SpO2 98% BMI 25.57 kg/m? . Vital signs reviewed by this provider. GENERAL: NAD, alert and oriented SKIN: unremarkable, no rash or skin lesions. Healing circular wound with pink edges noted in the right antecubital area. No surrounding erythema, excessive warmth, tenderness or drainage. Area is approximately 1 cm x 0.75 cm Hepatitis C Screening Never done HIV Screening Never done Covid-19 Vaccine( season) due on 02/06/2025 Influenza Vaccine(Season Ended) due on 11/05/2024 Depression Screening due on 02/06/2025 Cervical Cancer Screening due on 06/07/2025 DTaP,Tdap,Td Vaccine(10 - Td or Tdap) due on 10/22/2031 Hepatitis B Vaccine Completed HPV Vaccine Completed 1. History of removal of skin mole (Z98.890) - Mole excision performed one week ago in the cubital area; no signs of infection observed on examination. - Educated patient on normal healing process, including potential for redness and sloughing as part of tissue regeneration. - Advised against using rubbing alcohol to prevent excessive dryness and itching. - Recommended application of a light layer of triple antibiotic cream if desired, though not necessary for current healing status. - Discussed protective measures for upcoming outdoor activities, including use of waterproof bandages and occlusive dressings to prevent exposure to contaminants such as [place] water. - Informed patient about signs of infection to monitor for, including spreading erythema, increased warmth, tenderness, and purulent drainage. - Patient understands and agrees with the treatment plan. Lena MonterrosologTERRENCE montelongo.PROFESSOR OF PHYSICAL EDUCATION Prescription instructions reviewed with patient as applicable. Patient advised if symptoms do not improve or if symptoms worsen sooner, to contact their primary care physician. Potential red flag symptoms discussed with the patient. Reviewed appropriate action plan to take if red flag symptoms occur. Patient agreeable to treatment plan. Medical Decision Making: Problems: Low: Acute, uncomplicated illness or injury Risk: Low: Low risk from testing/treatment Medical Decision Making Level: 3 - Low [facility] 08-08-2024 History of Presen t illness Narrative 08/08/2024 Patient presents with: Derm Problem: Had mole removed x7 days ago on right arm. Worried it is infected. Recording using [employer] software for draft documentation of the visit was discussed with the patient/authorized medical customer service representative; all questions welcomed and answered. Patient/authorized medical customer service representative agreed to proceed SUBJECTIVE: This is a 23 year old that is here today for Above Complaints Mole Removal: - Mole removed from the right antecubital area one week ago. - No pathology results received yet; initial impression was benign. - Denies fevers or chills. - Noted minimal yellow drainage yesterday when removing a Band-Aid; denies significant drainage. - Concerned about healing due to frequent irritation from clothing. 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 tiZANidine (ZANAFLEX) 4 mg tablet Take 1 tablet by mouth at bedtime as needed. busPIRone (BUSPAR) 5 mg tablet Take 1 tablet by mouth daily at bedtime. No current facility-administered medications for this visit. Medications and allergies reviewed by this provider. SOCIAL HISTORY Social History Tobacco Use Smoking status: Former Current packs/day: 0.00 Average packs/day: 0.5 packs/day for 4.0 years (2.0 ttl pk-yrs) Types: Cigarettes Start date: 12/05/2018 Quit date: 12/05/2022 Years since quittin.6 Smokeless tobacco: Never Tobacco comments: 2 cigs per day Vaping Use Vaping status: Never Used Substance Use Topics Alcohol use: Never Drug use: Never REVIEW OF SYSTEMS OBJECTIVE: BP 106/72 Pulse 82 Temp 36.8 C (98.2 F) Resp 18 Wt 74.8 kg (164 lb 12.8 oz) LMP 06/28/2022 (Approximate) SpO2 98% BMI 25.57 kg/m . Vital signs reviewed by this provider. GENERAL: NAD, alert and oriented SKIN: unremarkable, no rash or skin lesions. Healing circular wound with pink edges noted in the right antecubital area. No surrounding erythema, excessive warmth, tenderness or drainage. Area is approximately 1 cm x 0.75 cm Hepatitis C Screening Never done HIV Screening Never done Covid-19 Vaccine( season) due on 02/06/2025 Influenza Vaccine(Season Ended) due on 11/05/2024 Depression Screening due on 02/06/2025 Cervical Cancer Screening due on 06/07/2025 DTaP,Tdap,Td Vaccine(10 - Td or Tdap) due on 10/22/2031 Hepatitis B Vaccine Completed HPV Vaccine Completed 1. History of removal of skin mole (Z98.890) - Mole excision performed one week ago in the cubital area; no signs of infection observed on examination. - Educated patient on normal healing process, including potential for redness and sloughing as part of tissue regeneration. - Advised against using rubbing alcohol to prevent excessive dryness and itching. - Recommended application of a light layer of triple antibiotic cream if desired, though not necessary for current healing status. - Discussed protective measures for upcoming outdoor activities, including use of waterproof bandages and occlusive dressings to prevent exposure to contaminants such as [place] water. - Informed patient about signs of infection to monitor for, including spreading erythema, increased warmth, tenderness, and purulent drainage. - Patient understands and agrees with the treatment plan. Lena Corbett APRN.CNP Prescription instructions reviewed with patient as applicable. Patient advised if symptoms do not improve or if symptoms worsen sooner, to contact their primary care physician. Potential red flag symptoms discussed with the patient. Reviewed appropriate action plan to take if red flag symptoms occur. Patient agreeable to treatment plan. Medical Decision Making: Problems: Low: Acute, uncomplicated illness or injury Risk: Low: Low risk from testing/treatment Medical Decision Making Level: 3 - Low documented in this encounter [facility] 07-23-2024 Telephone encounter Note Pt active on [employer]- message sent John Perales MA [facility] 07-23-2024 Miscellaneous Notes Pt active on [employer]- message sent John Perales MA Please let patient know their labs are normal.; documented in this encounter [facility] 07-22-2024 Telephone encounter Note Please let patient know their labs are normal.; [facility] 07-20-2024 Telephone encounter Note Prescription Refill Information The patient has been identified by name and date of : Yes Caregiver verified no other encounters exist for this prescription request: Yes Caregiver confirmed with patient/requestor that no other refills are due, in the near future, with this provider at this time: Yes The last office visit in the department: 07/20/24 Does the patient have a future office visit with this provider/department: Yes Requested Prescriptions Pending Prescriptions Disp Refills busPIRone (BUSPAR) 5 mg tablet 60 tablet 0 Sig: Take 1 tablet by mouth daily at bedtime. Meghana Carranza RN July 20, 2024 10:59 AM [facility] 07-20-2024 Miscellaneous Notes Prescription Refill Information The patient has been identified by name and date of : Yes Caregiver verified no other encounters exist for this prescription request: Yes Caregiver confirmed with patient/requestor that no other refills are due, in the near future, with this provider at this time: Yes The last office visit in the department: 07/20/24 Does the patient have a future office visit with this provider/department: Yes Requested Prescriptions Pending Prescriptions Disp Refills busPIRone (BUSPAR) 5 mg tablet 60 tablet 0 Sig: Take 1 tablet by mouth daily at bedtime. Meghana Carranza RN July 20, 2024 10:59 AM documented in this encounter [facility] 07-20-2024 Miscellaneous Notes Addended by: DORITA LARKIN on: 07/20/2024 10:25 AM Modules accepted: Orders documented in this encounter [facility] 07-20-2024 Note Addended by: DORITA LARKIN on: 07/20/2024 10:25 AM Modules accepted: Orders [facility] 07-20-2024 Note HNO ID: [id number] Author: DORITA LARKIN APRN.CNP Service: ? Author Type: Nurse Practitioner Type: Progress Notes Filed: 07/20/2024 10:24 Note Text: Chief Complaint Patient presents with: Follow Up HPI Aniyah Hodgson is a 23 year old female who presents here today for Above Complaints. Patient presents for medication follow up. Patient was seen 05/17 and started on buspar and zoloft. Taking buspar nightly. Reports she does not notice much difference in symptoms since starting medications. Past medical history, appointments, medications, allergies reviewed. 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 S/p surgery 01/17/2023 at [facility] Thoracic spine pain 04/29/2020 Well adult exam 04/21/2020 Last done: 04/21/2020 Previous Surgical History PAST SURGICAL HISTORY Procedure Laterality Date CYST/MOLE REMOVAL Left 2003 ganglion cyst IUD REMOVAL 08/02/2022 surgically removed PAST SURGICAL HISTORY OF 01/17/2023 T2-L2 posterior spinal arthrodesis and spinal instrumentation, [facility] SKIN BX, 1 LESION 2004 mole removal TYMPANOSTOMY GENERAL ANESTHESIA Bilateral 2008 Family History FAMILY HISTORY Problem Relation Age of Onset Ovarian cancer Maternal Grandmother Ovarian cancer Paternal Grandmother Patient Allergies ALLERGIES Allergen Reactions Augmentin [Amoxicil* Mental Status Change Patient states she was punching things and didn't know where she was Current Medications Current Outpatient Medications on File Prior to Visit Medication Sig busPIRone (BUSPAR) 5 mg tablet Take 1 tablet by mouth daily at bedtime. sertraline (ZOLOFT) 50 mg tablet Take 1 tablet by mouth once daily. cyclobenzaprine (FLEXERIL) 10 mg tablet Take 1 tablet by mouth three times a day as needed for muscle spasm. No current facility-administered medications on file prior to visit. Social History Social History Tobacco Use Smoking status: Former Current packs/day: 0.00 Average packs/day: 0.5 packs/day for 4.0 years (2.0 ttl pk-yrs) Types: Cigarettes Start date: 12/05/2018 Quit date: 12/05/2022 Years since quittin.6 Smokeless tobacco: Never Tobacco comments: 2 cigs per day Vaping Use Vaping status: Never Used Substance Use Topics Alcohol use: Never Drug use: Never Review of Symptoms REVIEW OF SYSTEMS SEE HPI EXAM: BP 113/70 Pulse 82 Wt 74 kg (163 lb 2.3 oz) LMP 06/28/2022 (Approximate) BMI 25.31 kg/m? General Appearance: Well appearing, alert, in no acute distress, well-hydrated, well nourished.. Health Maintenance List Hepatitis C Screening Never done HIV Screening Never done Covid-19 Vaccine( season) due on 02/06/2025 Influenza Vaccine(Season Ended) due on 11/05/2024 Depression Screening due on 02/06/2025 Cervical Cancer Screening due on 06/07/2025 DTaP,Tdap,Td Vaccine(10 - Td or Tdap) due on 10/22/2031 Hepatitis B Vaccine Completed HPV Vaccine Completed Data reviewed SONIYA-7 05/17/2024 07/20/2024 SONIYA-7 All Questions Feeling nervous, anxious, or on edge Nearly Everyday Several days Not being able to stop or control worrying Several days Not at all Worrying too much about different things Several days Not at all Trouble relaxing Nearly Everyday Not at all Being so restless that it is hard to sit still Not at all More than half the days Becoming easily annoyed or irritable Not at all Several days Feeling afraid, as if something awful might happen Nearly Everyday Several days SONIYA-7 Score 11 5 PHQ-9 11/05/2021 02/07/2024 07/20/2024 PHQ-9 Scores Little interest or pleasure in doing things: Not at all Not at all More than half the days Feeling down, depressed, or hopeless: Not at all Not at all Not at all Trouble falling or staying asleep, or sleeping too much - - More than half the days Feeling tired or having little energy - - Several days Poor appetite or overeating - - Not at all Feeling bad about yourself - or that you are a failure or have let yourself or your family down - - Not at all Trouble concentrating on things, such as reading the newspaper or watching television - - Several days Moving or speaking so slowly that other people could have noticed. Or the opposite - being so fidgety or restless that you have been moving around a lot more than usual - - Not at all Thoughts that you would be better off , or of hurting yourself in some way - - Not at all PHQ-9 Score - - 6 ASSESSMENT/PLAN: 1. Kyphosis of thoracic region, unspecified kyphosis type - ICD9: 737.10, ICD10: M40.204 (primary diagnosis) - TIZANIDINE 4 MG TABLET 2. SONIYA (generalized anxiety disorder) - ICD9: 300.02, ICD10: F41.1 - SERTRALINE 50 MG TABLET 3. Diaphoresis - ICD9: 780.8, ICD10: R61 - THYROID STIMULATING HORMONE - T3 - T4 FREE/FREE THY (more content not included)... [facility] 07-20-2024 History of Presen t illness Narrative Chief Complaint Patient presents with: Follow Up HPI Aniyah Hodgson is a 23 year old female who presents here today for Above Complaints. Patient presents for medication follow up. Patient was seen 05/17 and started on buspar and zoloft. Taking buspar nightly. Reports she does not notice much difference in symptoms since starting medications. Past medical history, appointments, medications, allergies reviewed. 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 S/p surgery 01/17/2023 at [facility] Thoracic spine pain 04/29/2020 Well adult exam 04/21/2020 Last done: 04/21/2020 Previous Surgical History PAST SURGICAL HISTORY Procedure Laterality Date CYST/MOLE REMOVAL Left 2003 ganglion cyst IUD REMOVAL 08/02/2022 surgically removed PAST SURGICAL HISTORY OF 01/17/2023 T2-L2 posterior spinal arthrodesis and spinal instrumentation, [facility] SKIN BX, 1 LESION 2004 mole removal TYMPANOSTOMY GENERAL ANESTHESIA Bilateral 2008 Family History FAMILY HISTORY Problem Relation Age of Onset Ovarian cancer Maternal Grandmother Ovarian cancer Paternal Grandmother Patient Allergies ALLERGIES Allergen Reactions Augmentin [Amoxicil* Mental Status Change Patient states she was punching things and didn't know where she was Current Medications Current Outpatient Medications on File Prior to Visit Medication Sig busPIRone (BUSPAR) 5 mg tablet Take 1 tablet by mouth daily at bedtime. sertraline (ZOLOFT) 50 mg tablet Take 1 tablet by mouth once daily. cyclobenzaprine (FLEXERIL) 10 mg tablet Take 1 tablet by mouth three times a day as needed for muscle spasm. No current facility-administered medications on file prior to visit. Social History Social History Tobacco Use Smoking status: Former Current packs/day: 0.00 Average packs/day: 0.5 packs/day for 4.0 years (2.0 ttl pk-yrs) Types: Cigarettes Start date: 12/05/2018 Quit date: 12/05/2022 Years since quittin.6 Smokeless tobacco: Never Tobacco comments: 2 cigs per day Vaping Use Vaping status: Never Used Substance Use Topics Alcohol use: Never Drug use: Never Review of Symptoms REVIEW OF SYSTEMS SEE HPI EXAM: BP 113/70 Pulse 82 Wt 74 kg (163 lb 2.3 oz) LMP 06/28/2022 (Approximate) BMI 25.31 kg/m General Appearance: Well appearing, alert, in no acute distress, well-hydrated, well nourished.. Health Maintenance List Hepatitis C Screening Never done HIV Screening Never done Covid-19 Vaccine( season) due on 02/06/2025 Influenza Vaccine(Season Ended) due on 11/05/2024 Depression Screening due on 02/06/2025 Cervical Cancer Screening due on 06/07/2025 DTaP,Tdap,Td Vaccine(10 - Td or Tdap) due on 10/22/2031 Hepatitis B Vaccine Completed HPV Vaccine Completed Data reviewed SONIYA-7 05/17/2024 07/20/2024 SONIYA-7 All Questions Feeling nervous, anxious, or on edge Nearly Everyday Several days Not being able to stop or control worrying Several days Not at all Worrying too much about different things Several days Not at all Trouble relaxing Nearly Everyday Not at all Being so restless that it is hard to sit still Not at all More than half the days Becoming easily annoyed or irritable Not at all Several days Feeling afraid, as if something awful might happen Nearly Everyday Several days SONIYA-7 Score 11 5 PHQ-9 11/05/2021 02/07/2024 07/20/2024 PHQ-9 Scores Little interest or pleasure in doing things: Not at all Not at all More than half the days Feeling down, depressed, or hopeless: Not at all Not at all Not at all Trouble falling or staying asleep, or sleeping too much - - More than half the days Feeling tired or having little energy - - Several days Poor appetite or overeating - - Not at all Feeling bad about yourself - or that you are a failure or have let yourself or your family down - - Not at all Trouble concentrating on things, such as reading the newspaper or watching television - - Several days Moving or speaking so slowly that other people could have noticed. Or the opposite - being so fidgety or restless that you have been moving around a lot more than usual - - Not at all Thoughts that you would be better off , or of hurting yourself in some way - - Not at all PHQ-9 Score - - 6 ASSESSMENT/PLAN: 1. Kyphosis of thoracic region, unspecified kyphosis type - ICD9: 737.10, ICD10: M40.204 (primary diagnosis) - TIZANIDINE 4 MG TABLET 2. SONIYA (generalized anxiety disorder) - ICD9: 300.02, ICD10: F41.1 - SERTRALINE 50 MG TABLET 3. Diaphoresis - ICD9: 780.8, ICD10: R61 - THYROID STIMULATING HORMONE - T3 - T4 FREE/FREE THYROXINE 4. Benign mole - ICD9: 216.9, ICD10: D22.9 - CONSULT TO DERMATOLOGY Dorita Larkin APRN.PROFESSOR OF PHYSICAL EDUCATION documented in this encounter [facility] 06-26-2024 Note HNO ID: [id number] Author: TERENCE MOCTEZUMA PA Service: ? Author Type: Physician Head Field Hockey Coach Type: Progress Notes Filed: 06/26/2024 16:45 Note Text: [facility] Subjective Aniyah Hodgson is a 23 year old female. Patient presents with: Dental Problem: R side tooth pain x2 days HPI 23-year-old female presents for dental pain x 2 days. Patient states she has had dental pain for the past 2 days. She states pain is worse with eating and chewing. She has been putting on Orajel without much improvement. No drainage from the area. No swelling. No tongue pain or swelling. No difficulty swallowing or breathing. She does have a dentist and has an appointment this week. 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 sertraline (ZOLOFT) 50 mg tablet Take 1 tablet by mouth once daily. cyclobenzaprine (FLEXERIL) 10 mg tablet Take 1 tablet by mouth three times a day as needed for muscle spasm. cephALEXin (KEFLEX) 500 mg capsule Take 1 capsule by mouth four times daily for 5 days. FAMILY HISTORY Problem Relation Age of Onset Ovarian cancer Maternal Grandmother Ovarian cancer Paternal Grandmother Social History Tobacco Use Smoking status: Former Current packs/day: 0.00 Average packs/day: 0.5 packs/day for 4.0 years (2.0 ttl pk-yrs) Types: Cigarettes Start date: 12/05/2018 Quit date: 12/05/2022 Years since quittin.5 Smokeless tobacco: Never Tobacco comments: 2 cigs per day Vaping Use Vaping status: Never Used Substance Use Topics Alcohol use: Never Drug use: Never Review of Systems Constitutional: Negative for chills and fever. HENT: Positive for dental problem. Negative for congestion, ear pain and sore throat. Respiratory: Negative for cough and shortness of breath. Cardiovascular: Negative for chest pain. Gastrointestinal: Negative for diarrhea and vomiting. Objective BP 128/76 Pulse 87 Temp 36.5 ?C (97.7 ?F) Resp 18 Wt 78.4 kg (172 lb 13.5 oz) LMP 06/28/2022 (Approximate) SpO2 98% BMI 26.81 kg/m? Physical Exam Vitals and nursing note reviewed. Constitutional: General: She is not in acute distress. Appearance: Normal appearance. She is not toxic-appearing. HENT: Nose: Nose normal. Mouth/Throat: Mouth: Mucous membranes are moist. Dentition: Dental tenderness and gingival swelling present. No dental abscesses. Comments: Patient has dental tenderness over tooth #7. Mild gingival swelling. No abscess. No tongue or floor mouth swelling. No trismus. Eyes: Conjunctiva/sclera: Conjunctivae normal. Cardiovascular: Rate and Rhythm: Normal rate and regular rhythm. Pulmonary: Effort: Pulmonary effort is normal. Breath sounds: Normal breath sounds. Skin: General: Skin is warm and dry. Neurological: Mental Status: She is alert. {ASSESSMENT/PLAN: 1. Pain, dental - ICD9: 525.9, ICD10: K08.89 - Rx Keflex - Follow-up with dentistry as scheduled - Tylenol/Motrin for pain Diagnosis and treatment plan were discussed and questions were answered to the patient's satisfaction. Pt acknowledged understanding of concepts and follow up plan. Specific signs and symptoms that would indicate the need for higher level of care were discussed in detail warranting prompt ER evaluation. SONIYA Akers History and Record Review External record(s) reviewed: prior outpatient record. Differential Diagnoses - Dental pain/infection is more likely for the following reason(s): suggested by HANDP - [place]'s angina/deep space infection is less likely for the following reason(s): HANDP not suggestive Disposition The patient was discharged. OTC Medications were advised: Tylenol/Motrin Procedures [facility] 06-26-2024 History of Presen t illness Narrative [facility] Subjective Aniyah Hodgson is a 23 year old female. Patient presents with: Dental Problem: R side tooth pain x2 days HPI 23-year-old female presents for dental pain x 2 days. Patient states she has had dental pain for the past 2 days. She states pain is worse with eating and chewing. She has been putting on Orajel without much improvement. No drainage from the area. No swelling. No tongue pain or swelling. No difficulty swallowing or breathing. She does have a dentist and has an appointment this week. 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 sertraline (ZOLOFT) 50 mg tablet Take 1 tablet by mouth once daily. cyclobenzaprine (FLEXERIL) 10 mg tablet Take 1 tablet by mouth three times a day as needed for muscle spasm. cephALEXin (KEFLEX) 500 mg capsule Take 1 capsule by mouth four times daily for 5 days. FAMILY HISTORY Problem Relation Age of Onset Ovarian cancer Maternal Grandmother Ovarian cancer Paternal Grandmother Social History Tobacco Use Smoking status: Former Current packs/day: 0.00 Average packs/day: 0.5 packs/day for 4.0 years (2.0 ttl pk-yrs) Types: Cigarettes Start date: 12/05/2018 Quit date: 12/05/2022 Years since quittin.5 Smokeless tobacco: Never Tobacco comments: 2 cigs per day Vaping Use Vaping status: Never Used Substance Use Topics Alcohol use: Never Drug use: Never Review of Systems Constitutional: Negative for chills and fever. HENT: Positive for dental problem. Negative for congestion, ear pain and sore throat. Respiratory: Negative for cough and shortness of breath. Cardiovascular: Negative for chest pain. Gastrointestinal: Negative for diarrhea and vomiting. Objective BP 128/76 Pulse 87 Temp 36.5 C (97.7 F) Resp 18 Wt 78.4 kg (172 lb 13.5 oz) LMP 06/28/2022 (Approximate) SpO2 98% BMI 26.81 kg/m Physical Exam Vitals and nursing note reviewed. Constitutional: General: She is not in acute distress. Appearance: Normal appearance. She is not toxic-appearing. HENT: Nose: Nose normal. Mouth/Throat: Mouth: Mucous membranes are moist. Dentition: Dental tenderness and gingival swelling present. No dental abscesses. Comments: Patient has dental tenderness over tooth #7. Mild gingival swelling. No abscess. No tongue or floor mouth swelling. No trismus. Eyes: Conjunctiva/sclera: Conjunctivae normal. Cardiovascular: Rate and Rhythm: Normal rate and regular rhythm. Pulmonary: Effort: Pulmonary effort is normal. Breath sounds: Normal breath sounds. Skin: General: Skin is warm and dry. Neurological: Mental Status: She is alert. {ASSESSMENT/PLAN: 1. Pain, dental - ICD9: 525.9, ICD10: K08.89 - Rx Keflex - Follow-up with dentistry as scheduled - Tylenol/Motrin for pain Diagnosis and treatment plan were discussed and questions were answered to the patient's satisfaction. Pt acknowledged understanding of concepts and follow up plan. Specific signs and symptoms that would indicate the need for higher level of care were discussed in detail warranting prompt ER evaluation. SONIYA Akers History and Record Review External record(s) reviewed: prior outpatient record. Differential Diagnoses - Dental pain/infection is more likely for the following reason(s): suggested by H&P - [place]'s angina/deep space infection is less likely for the following reason(s): H&P not suggestive Disposition The patient was discharged. OTC Medications were advised: Tylenol/Motrin Procedures documented in this encounter [facility] 06-25-2024 Telephone encounter Note Patient returned call and given provider's message below and patient verbalized understanding. Jose Culver RN [facility] 06-25-2024 Miscellaneous Notes Patient returned call and given provider's message below and patient verbalized understanding. Jose Culver RN Message left for return call. Brigette Tang MA Please let patient know her tilt table test is negative for tachycardia or hypotension. documented in this encounter [facility] 06-25-2024 Telephone encounter Note Message left for return call. Brigette Tang MA [facility] 06-25-2024 Telephone encounter Note Please let patient know her tilt table test is negative for tachycardia or hypotension. [facility] 06-07-2024 Telephone encounter Note Unable to reach by phone, pt active on [employer]- message sent John Perales MA [facility] 06-07-2024 Miscellaneous Notes Unable to reach by phone, pt active on [employer]- message sent John Perales MA Left message for patient to return call to office John Perales MA Please let patient know her echo is normal. documented in this encounter [facility] 06-05-2024 Telephone encounter Note Left message for patient to return call to office John Perales MA [facility] 06-05-2024 Telephone encounter Note Please let patient know her echo is normal. [facility] 05-17-2024 Note HNO ID: [id number] Author: DORITA LARKIN APRN.AMANDA Service: ? Author Type: Nurse Practitioner Type: Progress Notes Filed: 05/17/2024 16:42 Note Text: Chief Complaint No chief complaint on file. HPI Aniyah Hodgson is a 23 year old female who presents here today for Above Complaints.. Patient presents today for anxiety. Patient states she hasn't been sleeping states it might be anxiety related. She was prescribed muscle relaxers in the past that helped her sleep for 2-4 hours. Patient states she is having trouble both falling asleep and staying asleep once she is awake her mind is constantly thinking. Patient states she has been having frequent fatigue, dizziness and lack of motivation since her surgery. Patient denies passing out. Past medical history, appointments, medications, allergies reviewed. 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 S/p surgery 01/17/2023 at [facility] Thoracic spine pain 04/29/2020 Well adult exam 04/21/2020 Last done: 04/21/2020 Previous Surgical History PAST SURGICAL HISTORY Procedure Laterality Date CYST/MOLE REMOVAL Left 2003 ganglion cyst IUD REMOVAL 08/02/2022 surgically removed PAST SURGICAL HISTORY OF 01/17/2023 T2-L2 posterior spinal arthrodesis and spinal instrumentation, [facility] SKIN BX, 1 LESION 2004 mole removal TYMPANOSTOMY GENERAL ANESTHESIA Bilateral 2008 Family History FAMILY HISTORY Problem Relation Age of Onset Ovarian cancer Maternal Grandmother Ovarian cancer Paternal Grandmother Patient Allergies ALLERGIES Allergen Reactions Augmentin [Amoxicil* Mental Status Change Patient states she was punching things and didn't know where she was Current Medications Current Outpatient Medications on File Prior to Visit Medication Sig cyclobenzaprine (FLEXERIL) 10 mg tablet Take 1 tablet by mouth three times a day as needed for muscle spasm. No current facility-administered medications on file prior to visit. Social History Social History Tobacco Use Smoking status: Former Current packs/day: 0.00 Average packs/day: 0.5 packs/day for 4.0 years (2.0 ttl pk-yrs) Types: Cigarettes Start date: 12/05/2018 Quit date: 12/05/2022 Years since quittin.4 Smokeless tobacco: Never Tobacco comments: 2 cigs per day Vaping Use Vaping status: Never Used Substance Use Topics Alcohol use: Never Drug use: Never Review of Symptoms REVIEW OF SYSTEMS GENERAL: No weight loss, malaise or fevers RESPIRATORY: Negative for cough, hemoptysis, wheezing, COPD, dyspnea or shortness of breath CARDIOVASCULAR: Negative for chest pain, leg swelling, hypertension, CHF or palpitations EXAM: BP 114/75 Pulse 86 Wt 74 kg (163 lb 2.3 oz) LMP 06/28/2022 (Approximate) BMI 25.31 kg/m? General Appearance: Well appearing, alert, in no acute distress, well-hydrated, well nourished.. Lungs: Lungs clear to auscultation. No wheezing, rhonchi, rales.. Heart: RRR without murmur, gallop, or rubs. No ectopy. Health Maintenance List Hepatitis C Screening Never done HIV Screening Never done Influenza Vaccine(1) due on 09/03/2024 Covid-19 Vaccine( season) due on 02/06/2025 Depression Screening due on 02/06/2025 Cervical Cancer Screening due on 06/07/2025 DTaP,Tdap,Td Vaccine(10 - Td or Tdap) due on 10/22/2031 Hepatitis B Vaccine Completed HPV Vaccine Completed SONIYA-7 05/17/2024 SONIYA-7 All Questions Feeling nervous, anxious, or on edge Nearly Everyday Not being able to stop or control worrying Several days Worrying too much about different things Several days Trouble relaxing Nearly Everyday Being so restless that it is hard to sit still Not at all Becoming easily annoyed or irritable Not at all Feeling afraid, as if something awful might happen Nearly Everyday SONIYA-7 Score 11 ASSESSMENT/PLAN: 1. SONIYA (generalized anxiety disorder) - ICD9: 300.02, ICD10: F41.1 (primary diagnosis) - BUSPIRONE 5 MG TABLET - SERTRALINE 50 MG TABLET 2. Dizziness - ICD9: 780.4, ICD10: R42 - TILT TABLE EVALUATION - ECHO - PERFLUTREN LIPID MICROSPHERES 1.1 MG/ML INJECTION IN NS 10 ML - SODIUM CHLORIDE 0.9 % (FLUSH) INJECTION SYRINGE 3. Pre-syncope - ICD9: 780.2, ICD10: R55 - TILT TABLE EVALUATION - ECHO - PERFLUTREN LIPID MICROSPHERES 1.1 MG/ML INJECTION IN NS 10 ML - SODIUM CHLORIDE 0.9 % (FLUSH) INJECTION SYRINGE 4. Fatigue, unspecified type - ICD9: 780.79, ICD10: R53.83 - TILT TABLE EVALUATION - ECHO - PERFLUTREN LIPID MICROSPHERES 1.1 MG/ML INJECTION IN NS 10 ML - SODIUM CHLORIDE 0.9 % (FLUSH) INJECTION SYRINGE Dorita Larkin APRN.[facility] 05-17-2024 History of Presen t illness Narrative Chief Complaint No chief complaint on file. DEVANG Hodgson is a 23 year old female who presents here today for Above Complaints.. Patient presents today for anxiety. Patient states she hasn't been sleeping states it might be anxiety related. She was prescribed muscle relaxers in the past that helped her sleep for 2-4 hours. Patient states she is having trouble both falling asleep and staying asleep once she is awake her mind is constantly thinking. Patient states she has been having frequent fatigue, dizziness and lack of motivation since her surgery. Patient denies passing out. Past medical history, appointments, medications, allergies reviewed. 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 S/p surgery 01/17/2023 at [facility] Thoracic spine pain 04/29/2020 Well adult exam 04/21/2020 Last done: 04/21/2020 Previous Surgical History PAST SURGICAL HISTORY Procedure Laterality Date CYST/MOLE REMOVAL Left 2003 ganglion cyst IUD REMOVAL 08/02/2022 surgically removed PAST SURGICAL HISTORY OF 01/17/2023 T2-L2 posterior spinal arthrodesis and spinal instrumentation, [facility] SKIN BX, 1 LESION 2004 mole removal TYMPANOSTOMY GENERAL ANESTHESIA Bilateral 2008 Family History FAMILY HISTORY Problem Relation Age of Onset Ovarian cancer Maternal Grandmother Ovarian cancer Paternal Grandmother Patient Allergies ALLERGIES Allergen Reactions Augmentin [Amoxicil* Mental Status Change Patient states she was punching things and didn't know where she was Current Medications Current Outpatient Medications on File Prior to Visit Medication Sig cyclobenzaprine (FLEXERIL) 10 mg tablet Take 1 tablet by mouth three times a day as needed for muscle spasm. No current facility-administered medications on file prior to visit. Social History Social History Tobacco Use Smoking status: Former Current packs/day: 0.00 Average packs/day: 0.5 packs/day for 4.0 years (2.0 ttl pk-yrs) Types: Cigarettes Start date: 12/05/2018 Quit date: 12/05/2022 Years since quittin.4 Smokeless tobacco: Never Tobacco comments: 2 cigs per day Vaping Use Vaping status: Never Used Substance Use Topics Alcohol use: Never Drug use: Never Review of Symptoms REVIEW OF SYSTEMS GENERAL: No weight loss, malaise or fevers RESPIRATORY: Negative for cough, hemoptysis, wheezing, COPD, dyspnea or shortness of breath CARDIOVASCULAR: Negative for chest pain, leg swelling, hypertension, CHF or palpitations EXAM: BP 114/75 Pulse 86 Wt 74 kg (163 lb 2.3 oz) LMP 06/28/2022 (Approximate) BMI 25.31 kg/m General Appearance: Well appearing, alert, in no acute distress, well-hydrated, well nourished.. Lungs: Lungs clear to auscultation. No wheezing, rhonchi, rales.. Heart: RRR without murmur, gallop, or rubs. No ectopy. Health Maintenance List Hepatitis C Screening Never done HIV Screening Never done Influenza Vaccine(1) due on 09/03/2024 Covid-19 Vaccine( season) due on 02/06/2025 Depression Screening due on 02/06/2025 Cervical Cancer Screening due on 06/07/2025 DTaP,Tdap,Td Vaccine(10 - Td or Tdap) due on 10/22/2031 Hepatitis B Vaccine Completed HPV Vaccine Completed SONIYA-7 05/17/2024 SONIYA-7 All Questions Feeling nervous, anxious, or on edge Nearly Everyday Not being able to stop or control worrying Several days Worrying too much about different things Several days Trouble relaxing Nearly Everyday Being so restless that it is hard to sit still Not at all Becoming easily annoyed or irritable Not at all Feeling afraid, as if something awful might happen Nearly Everyday SONIYA-7 Score 11 ASSESSMENT/PLAN: 1. SONIYA (generalized anxiety disorder) - ICD9: 300.02, ICD10: F41.1 (primary diagnosis) - BUSPIRONE 5 MG TABLET - SERTRALINE 50 MG TABLET 2. Dizziness - ICD9: 780.4, ICD10: R42 - TILT TABLE EVALUATION - ECHO - PERFLUTREN LIPID MICROSPHERES 1.1 MG/ML INJECTION IN NS 10 ML - SODIUM CHLORIDE 0.9 % (FLUSH) INJECTION SYRINGE 3. Pre-syncope - ICD9: 780.2, ICD10: R55 - TILT TABLE EVALUATION - ECHO - PERFLUTREN LIPID MICROSPHERES 1.1 MG/ML INJECTION IN NS 10 ML - SODIUM CHLORIDE 0.9 % (FLUSH) INJECTION SYRINGE 4. Fatigue, unspecified type - ICD9: 780.79, ICD10: R53.83 - TILT TABLE EVALUATION - ECHO - PERFLUTREN LIPID MICROSPHERES 1.1 MG/ML INJECTION IN NS 10 ML - SODIUM CHLORIDE 0.9 % (FLUSH) INJECTION SYRINGE Dorita Larkin APRN.PROFESSOR OF PHYSICAL EDUCATION documented in this encounter [facility] 04-04-2024 History of Presen t illness Narrative 23 y/o Aniyah Hodgson returns to the office. She underwent T2-L2 posterior spinal arthrodesis/instrumentation. She underwent multi-level posterior column osteotomies T4-T10 for spinal deformity correction for Scheuermann's kyphosis. She feels like she got better after surgery but has plateau;d. She has upper shoulder pain and feels like her muscles are rubbing up against the hardware. She states it'll get hot to touch. She takes flexeril at night that helps some. She feels like her shoulder get fatigued. Her arms get fatigued. She feels like she has always had some dexterity issues. Some gait instability. No past medical history on file. Past Surgical History: Procedure Laterality Date FUSION POSTERIOR THORACIC Midline 01/17/2023 Laterality: Midline; Surgeon: Juan Rankin MD; Location: [facility] MAIN OR FUSION POSTERIOR LUMBAR Midline 01/17/2023 Laterality: Midline; Surgeon: Juan Rankin MD; Location: [facility] MAIN OR FUSION POSTERIOR LUMBAR EACH ADDL INTERSPACE ADD-ON PX Midline 01/17/2023 Laterality: Midline; Surgeon: Juan Rankin MD; Location[facility] INSERTION SPINAL INSTRUMENTATION POSTERIOR SEGMENTAL ADD-ON PX (IP ONLY) Midline 01/17/2023 Laterality: Midline; Surgeon: Juan Rankin MD; Location: [facility] MAIN OR OSTEOTOMY SPINE 3 COLUMNS POSTERIOR APPROACH 1 VERTEBRAR Midline 01/17/2023 Laterality: Midline; Surgeon: Juan Rankin MD; Location: [facility] MAIN OR ASSISTANCE STEREOTACTIC NAVIGATION SPINAL ADD-ON PX Midline 01/17/2023 Laterality: Midline; Surgeon: Juan Rankin MD; Location: [facility] MAIN OR EXCISION GANGLION CYST SKIN BIOPSY mole removal TONSILLECTOMY ADENOIDECTOMY Current Outpatient Medications Medication Instructions acetaminophen (TYLENOL) 1,000 mg, Oral, EVERY 8 HOURS cyanocobalamin (VITAMIN B12) 1,000 mcg, Oral, DAILY AT BEDTIME Cyclobenzaprine (FLEXERIL) 5 mg, Oral, 3 TIMES DAILY NEEDED Enoxaparin Sodium (LOVENOX) 40 mg, Subcutaneous, EVERY 24 HOURS Gabapentin (NEURONTIN) 300 mg, 3 TIMES DAILY Meloxicam (MOBIC) 7.5 mg, 2 TIMES DAILY Methocarbamol 750 MG tablet naloxone 4 MG/0.1ML 1 spray, Nasal, ADMINISTER DIRECTED, [place] into the nose as directed. Call 911. If no response in 2 minutes use a new nasal spray in other nostril. Repeat until help arrives. oxyCODONE (ROXICODONE) 5 mg, Oral, EVERY 6 HOURS NEEDED tiZANidine (ZANAFLEX) 4 mg, Oral, EVERY 6 HOURS NEEDED traZODone 50 MG tablet 1 tablet, DAILY AT BEDTIME Allergies Allergen Reactions Amoxicillin-Pot Clavulanate Nausea and Vomiting Other reaction(s): Mental Status Change Patient states she was punching things and didn't know where she was There were no vitals filed for this visit. Musculoskeletal exam: Ambulates without issue. Incision well healed. Significant tenderness to palpation at screw heads in upper thoracic spine. Significant tenderness to palpation over her bilateral shoulder blades. 5/5 throughout BLE5/5 in BUE. No sensory deficits. Overall sagittal and coronal spinal alignment within normal parameters. Normal strength noted to both lower extremities as well as upper extremities on bench testing Radiographs: CT scan with intact hardware without any acute complications, lucencies. XR Scoliosis with stable instrumentation without hardware failure. No significant change compared to prior XR. Assessment: -status post T 2-L2 fixation fusion, T4-10 PCO's completed 01/17/2023 for Scheuermann's kyphosis deformity correction -prior history nicotine addiction currently nicotine free since surgery Recommendations: Had long discussion with patient and mother about options. They are extremely frustrated by the amount of pain she has, although this is improved from pre-op. We discussed revision surgery to pediatric pedicle screws, however, I am not convinced this will improve her symptoms as she has a lot of myofascial pain over her shoulders. We discussed follow up with her pain physician for trigger point injection, steroid injections around prominent hardware. Trigger point, chronic pain locally. PCP Godfrey Hsu MD I saw and independently examined the patient today. I agree with the history, examination, and medical decision making as noted by Dr. Hsu. Patient has significant pain still. She has pain with her shoulders as well. She has tried extensive therapy without relief. She has quite a bit of sensitivity. I did discuss we could potentially replace with pediatric hardware and decrease the amount of screws. We also could have plastics help close. Muscle does appear healthy and covered over the hardware for most part on imaging. I placed referral for neurology for POTS. We discussed her doing trigger point injections and hardware injections to see if this can help with her pain as well as diagnose(hardware sepcifically upper thoracic T2-T5). She will try to get this done locally.. She'll see me back in a few months. Juan Rankin MD documented in this encounter [facility] 02-09-2024 Telephone encounter Note Patient calls and notified of results.Patient verbalizes understanding. Sabrina Shrestha RN [facility] 02-09-2024 Miscellaneous Notes Patient calls and notified of results.Patient verbalizes understanding. Sabrina Shrestha RN Left message for patient to return call to office John Perales MA Please let patient know their labs are normal. documented in this encounter [facility] 02-09-2024 Telephone encounter Note Left message for patient to return call to office John Perales MA [facility] 02-09-2024 Telephone encounter Note Please let patient know their labs are normal. [facility] 02-07-2024 Note HNO ID: [id number] Author: DORITA LARKIN APRN.AMANDA Service: ? Author Type: Nurse Practitioner Type: Progress Notes Filed: 02/07/2024 15:40 Note Text: Chief Complaint Patient presents with: Physical HPI Aniyah Hodgson is a 23 year old female who presents here today for Above Complaints.. Patient presents for annual physical. Reports she does not see pain management any longer. Patient reports spine doctor wants to due a follow up surgery to change out her hardware. Patient requesting refill of muscle relaxer for low back pain. Past medical history, appointments, medications, allergies reviewed. 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 S/p surgery 01/17/2023 at [facility] Thoracic spine pain 04/29/2020 Well adult exam 04/21/2020 Last done: 04/21/2020 Previous Surgical History PAST SURGICAL HISTORY Procedure Laterality Date CYST/MOLE REMOVAL Left 2003 ganglion cyst IUD REMOVAL 08/02/2022 surgically removed PAST SURGICAL HISTORY OF 01/17/2023 T2-L2 posterior spinal arthrodesis and spinal instrumentation, [facility] SKIN BX, 1 LESION 2004 mole removal TYMPANOSTOMY GENERAL ANESTHESIA Bilateral 2008 Family History FAMILY HISTORY Problem Relation Age of Onset Ovarian cancer Maternal Grandmother Ovarian cancer Paternal Grandmother Patient Allergies ALLERGIES Allergen Reactions Augmentin [Amoxicil* Mental Status Change Patient states she was punching things and didn't know where she was Current Medications Current Outpatient Medications on File Prior to Visit Medication Sig traZODone (DESYREL) 50 mg tablet Take 1 tablet by mouth daily at bedtime. oxycodone HCl (OXYCODONE ORAL) Take 1 tablet by mouth three times a day. Pt i taking roughly 4 to 5 times a day (Patient not taking: Reported on 02/17/2023) cyclobenzaprine (FLEXERIL) 5 mg tablet Take 5 mg by mouth three times a day. (Patient not taking: Reported on 02/17/2023) enoxaparin (LOVENOX) 40 mg/0.4 mL Inject 1 mg/kg/dose subcutaneously once daily. (Patient not taking: Reported on 02/17/2023) diphenhydrAMINE-Acetaminophen (TYLENOL PM EXTRA STRENGTH) 25-500 mg tab Take 2 tablets by mouth four times daily. (Patient not taking: Reported on 02/17/2023) docusate sodium (COLACE) 100 mg capsule Take 100 mg by mouth two times a day. (Patient not taking: Reported on 02/17/2023) polyethylene glycol 3350 (MIRALAX) 17 gram/dose powder Take 17 g by mouth one time only. Dissolve dose in 4 - 8 ounces of liquid and take as directed. sennosides (SENOKOT ORAL) Take 2 capsules by mouth. gabapentin (NEURONTIN) 300 mg capsule Take 300 mg by mouth three times a day. (Patient not taking: Reported on 02/17/2023) meloxicam (MOBIC) 7.5 mg tablet Take 1 tablet by mouth two times a day. (Patient not taking: Reported on 02/03/2023) cyanocobalamin (VITAMIN B-12) 1,000 mcg tab Take 1 tablet by mouth once daily. tiZANidine (ZANAFLEX) 4 mg tablet Take 4 mg by mouth daily at bedtime. (Patient not taking: Reported on 02/03/2023) hydrocodone/acetaminophen (VICODIN ORAL) Take 1 tablet by mouth as needed. (Patient not taking: Reported on 02/03/2023) No current facility-administered medications on file prior to visit. Social History Social History Tobacco Use Smoking status: Former Current packs/day: 0.00 Average packs/day: 0.5 packs/day for 4.0 years (2.0 ttl pk-yrs) Types: Cigarettes Start date: 12/05/2018 Quit date: 12/05/2022 Years since quittin.1 Smokeless tobacco: Never Tobacco comments: 2 cigs per day Vaping Use Vaping status: Never Used Substance Use Topics Alcohol use: Never Drug use: Never Review of Symptoms REVIEW OF SYSTEMS SEE HPI EXAM: BP 111/71 Pulse 82 Resp 14 Wt 77.1 kg (170 lb) LMP 06/28/2022 (Approximate) BMI 26.37 kg/m? General Appearance: Well appearing, alert, in no acute distress, well-hydrated, well nourished.. Skin: Skin color, texture, turgor normal, no suspicious rashes or lesions. Lungs: Lungs clear to auscultation. No wheezing, rhonchi, rales.. Heart: RRR without murmur, gallop, or rubs. No ectopy. Abdomen: Normal abdominal exam, Abdomen soft, non-tender. Bowel sounds normal. No masses, organomegaly. Musculoskeletal: No joint swelling, deformity, or tenderness. Peripheral Pulses: Normal. Neurologic: Gait normal. Reflexes normal and symmetric. Sensation grossly intact.. Health Maintenance List Depression Screening Never done Hepatitis C Screening Never done HIV Screening Never done Influenza Vaccine(1) Never done Covid-19 Vaccine( - season) Never done Cervical Cancer Screening due on 06/07/2025 DTaP,Tdap,Td Vaccine(10 - Td or Tdap) due on 10/22/2031 Hepatitis B Vaccine Completed HPV Vaccine Completed ASSESSMENT/PLAN: 1. Acute bilateral low back pain without s (more content not included)... [facility] 02-07-2024 History of Presen t illness Narrative Chief Complaint Patient presents with: Physical HPI Aniyah Hodgson is a 23 year old female who presents here today for Above Complaints.. Patient presents for annual physical. Reports she does not see pain management any longer. Patient reports spine doctor wants to due a follow up surgery to change out her hardware. Patient requesting refill of muscle relaxer for low back pain. Past medical history, appointments, medications, allergies reviewed. 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 S/p surgery 01/17/2023 at [facility] Thoracic spine pain 04/29/2020 Well adult exam 04/21/2020 Last done: 04/21/2020 Previous Surgical History PAST SURGICAL HISTORY Procedure Laterality Date CYST/MOLE REMOVAL Left 2003 ganglion cyst IUD REMOVAL 08/02/2022 surgically removed PAST SURGICAL HISTORY OF 01/17/2023 T2-L2 posterior spinal arthrodesis and spinal instrumentation, [facility] SKIN BX, 1 LESION 2004 mole removal TYMPANOSTOMY GENERAL ANESTHESIA Bilateral 2008 Family History FAMILY HISTORY Problem Relation Age of Onset Ovarian cancer Maternal Grandmother Ovarian cancer Paternal Grandmother Patient Allergies ALLERGIES Allergen Reactions Augmentin [Amoxicil* Mental Status Change Patient states she was punching things and didn't know where she was Current Medications Current Outpatient Medications on File Prior to Visit Medication Sig traZODone (DESYREL) 50 mg tablet Take 1 tablet by mouth daily at bedtime. oxycodone HCl (OXYCODONE ORAL) Take 1 tablet by mouth three times a day. Pt i taking roughly 4 to 5 times a day (Patient not taking: Reported on 02/17/2023) cyclobenzaprine (FLEXERIL) 5 mg tablet Take 5 mg by mouth three times a day. (Patient not taking: Reported on 02/17/2023) enoxaparin (LOVENOX) 40 mg/0.4 mL Inject 1 mg/kg/dose subcutaneously once daily. (Patient not taking: Reported on 02/17/2023) diphenhydrAMINE-Acetaminophen (TYLENOL PM EXTRA STRENGTH) 25-500 mg tab Take 2 tablets by mouth four times daily. (Patient not taking: Reported on 02/17/2023) docusate sodium (COLACE) 100 mg capsule Take 100 mg by mouth two times a day. (Patient not taking: Reported on 02/17/2023) polyethylene glycol 3350 (MIRALAX) 17 gram/dose powder Take 17 g by mouth one time only. Dissolve dose in 4 - 8 ounces of liquid and take as directed. sennosides (SENOKOT ORAL) Take 2 capsules by mouth. gabapentin (NEURONTIN) 300 mg capsule Take 300 mg by mouth three times a day. (Patient not taking: Reported on 02/17/2023) meloxicam (MOBIC) 7.5 mg tablet Take 1 tablet by mouth two times a day. (Patient not taking: Reported on 02/03/2023) cyanocobalamin (VITAMIN B-12) 1,000 mcg tab Take 1 tablet by mouth once daily. tiZANidine (ZANAFLEX) 4 mg tablet Take 4 mg by mouth daily at bedtime. (Patient not taking: Reported on 02/03/2023) hydrocodone/acetaminophen (VICODIN ORAL) Take 1 tablet by mouth as needed. (Patient not taking: Reported on 02/03/2023) No current facility-administered medications on file prior to visit. Social History Social History Tobacco Use Smoking status: Former Current packs/day: 0.00 Average packs/day: 0.5 packs/day for 4.0 years (2.0 ttl pk-yrs) Types: Cigarettes Start date: 12/05/2018 Quit date: 12/05/2022 Years since quittin.1 Smokeless tobacco: Never Tobacco comments: 2 cigs per day Vaping Use Vaping status: Never Used Substance Use Topics Alcohol use: Never Drug use: Never Review of Symptoms REVIEW OF SYSTEMS SEE HPI EXAM: BP 111/71 Pulse 82 Resp 14 Wt 77.1 kg (170 lb) LMP 06/28/2022 (Approximate) BMI 26.37 kg/m General Appearance: Well appearing, alert, in no acute distress, well-hydrated, well nourished.. Skin: Skin color, texture, turgor normal, no suspicious rashes or lesions. Lungs: Lungs clear to auscultation. No wheezing, rhonchi, rales.. Heart: RRR without murmur, gallop, or rubs. No ectopy. Abdomen: Normal abdominal exam, Abdomen soft, non-tender. Bowel sounds normal. No masses, organomegaly. Musculoskeletal: No joint swelling, deformity, or tenderness. Peripheral Pulses: Normal. Neurologic: Gait normal. Reflexes normal and symmetric. Sensation grossly intact.. Health Maintenance List Depression Screening Never done Hepatitis C Screening Never done HIV Screening Never done Influenza Vaccine(1) Never done Covid-19 Vaccine() Never done Cervical Cancer Screening due on 06/07/2025 DTaP,Tdap,Td Vaccine(10 - Td or Tdap) due on 10/22/2031 Hepatitis B Vaccine Completed HPV Vaccine Completed ASSESSMENT/PLAN: 1. Acute bilateral low back pain without sciatica - ICD9: 724.2, 338.19, ICD10: M54.50 (primary diagnosis) - CYCLOBENZAPRINE 10 MG TABLET 2. Screening for depression - ICD9: V79.0, ICD10: Z13.31 - DEPRESSION SCREENING 3. Vitamin B12 deficiency - ICD9: 266.2, ICD10: E53.8 - VITAMIN B12 4. Well adult exam - ICD9: V70.0, ICD10: Z00.00 - Counseled on healthy diet and regular exercise - Follow up for annual exam in one year - COMPLETE BLOOD COUNT AND DIFFERENTIAL - COMPREHENSIVE METABOLIC PANEL Dorita Larkin APRN.PROFESSOR OF PHYSICAL EDUCATION documented in this encounter [facility] 02-06-2024 Telephone encounter Note Patient scheduled for the 3:20 spot with 40 min [facility] 02-06-2024 Miscellaneous Notes Patient scheduled for the 3:20 spot with 40 min documented in this encounter [facility] 01-03-2024 Telephone encounter Note Pt notified and verbalized understanding John Perales MA [facility] 01-03-2024 Miscellaneous Notes Pt notified and verbalized understanding John Perales MA Please let patient know her xr is negative. Continue cefdinir as prescribed and follow up if no improvement. documented in this encounter [facility] 01-03-2024 Telephone encounter Note Please let patient know her xr is negative. Continue cefdinir as prescribed and follow up if no improvement. [facility] 01-02-2024 History of Presen t illness Narrative Radiology Service Progress Note PATIENT NAME: Aniyah Hodgson DATE OF SERVICE: January 02, 2024 TIME: 4:22 PM PATIENT IDENTITY VERIFICATION COMPLETED USING TWO (2) IDENTIFIERS: Name and Date of confirmed by patient verbally. FALL SCREENING: Has the patient had 2 falls in the last year or 1 fall with injury or currently using an Ambulatory Assistive Device (Walker, Cane, Wheelchair, Crutches, etc.)? No PATIENT GENDER DATA: Female. status: : No status: NO. PATIENT RELEVANT IMPLANT DATA REVIEWED: Not Applicable PATIENT PRESENTS WITH AN IMPLANTABLE OR ATTACHED RAIL PROJECT ENGINEER: No RADIOLOGY DEPARTMENT: General X-ray: Exam(s) Completed: Chest X-Ray PERIPHERAL IV DATA: Not applicable SIGNED BY: RT Luis E(Papo) January 02, 2024 4:22 PM documented in this encounter [facility] 01-02-2024 Note HNO ID: [id number] Author: PAUL SLADE RT(R) Service: Radiology Author Type: Technologist Type: Progress Notes Filed: 01/02/2024 16:29 Note Text: Radiology Service Progress Note PATIENT NAME: Aniyah Hodgson DATE OF SERVICE: January 02, 2024 TIME: 4:22 PM PATIENT IDENTITY VERIFICATION COMPLETED USING TWO (2) IDENTIFIERS: Name and Date of confirmed by patient verbally. FALL SCREENING: Has the patient had 2 falls in the last year or 1 fall with injury or currently using an Ambulatory Assistive Device (Walker, Cane, Wheelchair, Crutches, etc.)? No PATIENT GENDER DATA: Female. status: : No status: NO. PATIENT RELEVANT IMPLANT DATA REVIEWED: Not Applicable PATIENT PRESENTS WITH AN IMPLANTABLE OR ATTACHED RAIL PROJECT ENGINEER: No RADIOLOGY DEPARTMENT: General X-ray: Exam(s) Completed: Chest X-Ray PERIPHERAL IV DATA: Not applicable SIGNED BY: RT Luis E(R) January 02, 2024 4:22 PM [facility] 01-02-2024 Note HNO ID: [id number] Author: DORITA LARKIN APRN.PROFESSOR OF PHYSICAL EDUCATION Service: ? Author Type: Nurse Practitioner Type: Progress Notes Filed: 01/02/2024 16:17 Note Text: Chief Complaint Patient presents with: Cough Chest Congestion Ear Pain HPI Aniyah Hodgson is a 23 year old female who presents here today for Above Complaints.. Patient reports cough, chest congestion, bilateral ear pain and headache that started two weeks ago. Patient states her cough is productive with green/yellow sputum. Patient reports a sick exposure, boyfriend ill with similar symptoms. Patient has been talking some OTC Mucinex and Ibuprofen with minimal relief. Past medical history, appointments, medications, allergies reviewed. 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 S/p surgery 01/17/2023 at [facility] Thoracic spine pain 04/29/2020 Well adult exam 04/21/2020 Last done: 04/21/2020 Previous Surgical History PAST SURGICAL HISTORY Procedure Laterality Date CYST/MOLE REMOVAL Left 2003 ganglion cyst IUD REMOVAL 08/02/2022 surgically removed PAST SURGICAL HISTORY OF 01/17/2023 T2-L2 posterior spinal arthrodesis and spinal instrumentation, [facility] SKIN BX, 1 LESION 2005 mole removal TYMPANOSTOMY GENERAL ANESTHESIA Bilateral 2009 Family History FAMILY HISTORY Problem Relation Age of Onset Ovarian cancer Maternal Grandmother Ovarian cancer Paternal Grandmother Patient Allergies ALLERGIES Allergen Reactions Augmentin [Amoxicil* Mental Status Change Patient states she was punching things and didn't know where she was Current Medications Current Outpatient Medications on File Prior to Visit Medication Sig traZODone (DESYREL) 50 mg tablet Take 1 tablet by mouth daily at bedtime. oxycodone HCl (OXYCODONE ORAL) Take 1 tablet by mouth three times a day. Pt i taking roughly 4 to 5 times a day (Patient not taking: Reported on 02/17/2023) cyclobenzaprine (FLEXERIL) 5 mg tablet Take 5 mg by mouth three times a day. (Patient not taking: Reported on 02/17/2023) enoxaparin (LOVENOX) 40 mg/0.4 mL Inject 1 mg/kg/dose subcutaneously once daily. (Patient not taking: Reported on 02/17/2023) diphenhydrAMINE-Acetaminophen (TYLENOL PM EXTRA STRENGTH) 25-500 mg tab Take 2 tablets by mouth four times daily. (Patient not taking: Reported on 02/17/2023) docusate sodium (COLACE) 100 mg capsule Take 100 mg by mouth two times a day. (Patient not taking: Reported on 02/17/2023) polyethylene glycol 3350 (MIRALAX) 17 gram/dose powder Take 17 g by mouth one time only. Dissolve dose in 4 - 8 ounces of liquid and take as directed. sennosides (SENOKOT ORAL) Take 2 capsules by mouth. gabapentin (NEURONTIN) 300 mg capsule Take 300 mg by mouth three times a day. (Patient not taking: Reported on 02/17/2023) meloxicam (MOBIC) 7.5 mg tablet Take 1 tablet by mouth two times a day. (Patient not taking: Reported on 02/03/2023) cyanocobalamin (VITAMIN B-12) 1,000 mcg tab Take 1 tablet by mouth once daily. tiZANidine (ZANAFLEX) 4 mg tablet Take 4 mg by mouth daily at bedtime. (Patient not taking: Reported on 02/03/2023) hydrocodone/acetaminophen (VICODIN ORAL) Take 1 tablet by mouth as needed. (Patient not taking: Reported on 02/03/2023) No current facility-administered medications on file prior to visit. Social History Social History Tobacco Use Smoking status: Former Current packs/day: 0.00 Average packs/day: 0.5 packs/day for 4.0 years (2.0 ttl pk-yrs) Types: Cigarettes Start date: 12/05/2018 Quit date: 12/05/2022 Years since quittin.0 Smokeless tobacco: Never Tobacco comments: 2 cigs per day Vaping Use Vaping status: Never Used Substance Use Topics Alcohol use: Never Drug use: Never Review of Symptoms REVIEW OF SYSTEMS SEE HPI EXAM: BP 117/72 Pulse 99 Temp 37.1 ?C (98.8 ?F) Resp 14 Wt 73.9 kg (163 lb) LMP 06/28/2022 (Approximate) BMI 25.29 kg/m? General Appearance: Well appearing, alert, in no acute distress, well-hydrated, well nourished.. Ears: Positive findings: R TM: erythematous, L TM: erythematous. Nose/Sinuses: Nares normal, septum midline, mucosa normal, no drainage or sinus tenderness. Oropharynx: Lips, mucosa, and tongue normal, teeth and gums normal, oropharynx normal. Lungs: Lungs clear to auscultation. No wheezing, rhonchi, rales.. Heart: RRR without murmur, gallop, or rubs. No ectopy. Abdomen: Normal abdominal exam, Abdomen soft, non-tender. Bowel sounds normal. No masses, organomegaly. Musculoskeletal: No joint swelling, deformity, or tenderness. Health Maintenance List Depression Screening Never done Hepatitis C Screening Never done HIV Screening Never done Influenza Vaccine(1) Never done Covid-19 Vaccine( season) Never done Cervical Cancer Screening due on (more content not included)... [facility] 01-02-2024 History of Presen t illness Narrative Chief Complaint Patient presents with: Cough Chest Congestion Ear Pain HPI Aniyah Hodgson is a 23 year old female who presents here today for Above Complaints.. Patient reports cough, chest congestion, bilateral ear pain and headache that started two weeks ago. Patient states her cough is productive with green/yellow sputum. Patient reports a sick exposure, boyfriend ill with similar symptoms. Patient has been talking some OTC Mucinex and Ibuprofen with minimal relief. Past medical history, appointments, medications, allergies reviewed. 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 S/p surgery 01/17/2023 at [facility] Thoracic spine pain 04/29/2020 Well adult exam 04/21/2020 Last done: 04/21/2020 Previous Surgical History PAST SURGICAL HISTORY Procedure Laterality Date CYST/MOLE REMOVAL Left 2003 ganglion cyst IUD REMOVAL 08/02/2022 surgically removed PAST SURGICAL HISTORY OF 01/17/2023 T2-L2 posterior spinal arthrodesis and spinal instrumentation, [facility] SKIN BX, 1 LESION 2004 mole removal TYMPANOSTOMY GENERAL ANESTHESIA Bilateral 2008 Family History FAMILY HISTORY Problem Relation Age of Onset Ovarian cancer Maternal Grandmother Ovarian cancer Paternal Grandmother Patient Allergies ALLERGIES Allergen Reactions Augmentin [Amoxicil* Mental Status Change Patient states she was punching things and didn't know where she was Current Medications Current Outpatient Medications on File Prior to Visit Medication Sig traZODone (DESYREL) 50 mg tablet Take 1 tablet by mouth daily at bedtime. oxycodone HCl (OXYCODONE ORAL) Take 1 tablet by mouth three times a day. Pt i taking roughly 4 to 5 times a day (Patient not taking: Reported on 02/17/2023) cyclobenzaprine (FLEXERIL) 5 mg tablet Take 5 mg by mouth three times a day. (Patient not taking: Reported on 02/17/2023) enoxaparin (LOVENOX) 40 mg/0.4 mL Inject 1 mg/kg/dose subcutaneously once daily. (Patient not taking: Reported on 02/17/2023) diphenhydrAMINE-Acetaminophen (TYLENOL PM EXTRA STRENGTH) 25-500 mg tab Take 2 tablets by mouth four times daily. (Patient not taking: Reported on 02/17/2023) docusate sodium (COLACE) 100 mg capsule Take 100 mg by mouth two times a day. (Patient not taking: Reported on 02/17/2023) polyethylene glycol 3350 (MIRALAX) 17 gram/dose powder Take 17 g by mouth one time only. Dissolve dose in 4 - 8 ounces of liquid and take as directed. sennosides (SENOKOT ORAL) Take 2 capsules by mouth. gabapentin (NEURONTIN) 300 mg capsule Take 300 mg by mouth three times a day. (Patient not taking: Reported on 02/17/2023) meloxicam (MOBIC) 7.5 mg tablet Take 1 tablet by mouth two times a day. (Patient not taking: Reported on 02/03/2023) cyanocobalamin (VITAMIN B-12) 1,000 mcg tab Take 1 tablet by mouth once daily. tiZANidine (ZANAFLEX) 4 mg tablet Take 4 mg by mouth daily at bedtime. (Patient not taking: Reported on 02/03/2023) hydrocodone/acetaminophen (VICODIN ORAL) Take 1 tablet by mouth as needed. (Patient not taking: Reported on 02/03/2023) No current facility-administered medications on file prior to visit. Social History Social History Tobacco Use Smoking status: Former Current packs/day: 0.00 Average packs/day: 0.5 packs/day for 4.0 years (2.0 ttl pk-yrs) Types: Cigarettes Start date: 12/05/2018 Quit date: 12/05/2022 Years since quittin.0 Smokeless tobacco: Never Tobacco comments: 2 cigs per day Vaping Use Vaping status: Never Used Substance Use Topics Alcohol use: Never Drug use: Never Review of Symptoms REVIEW OF SYSTEMS SEE HPI EXAM: BP 117/72 Pulse 99 Temp 37.1 C (98.8 F) Resp 14 Wt 73.9 kg (163 lb) LMP 06/28/2022 (Approximate) BMI 25.29 kg/m General Appearance: Well appearing, alert, in no acute distress, well-hydrated, well nourished.. Ears: Positive findings: R TM: erythematous, L TM: erythematous. Nose/Sinuses: Nares normal, septum midline, mucosa normal, no drainage or sinus tenderness. Oropharynx: Lips, mucosa, and tongue normal, teeth and gums normal, oropharynx normal. Lungs: Lungs clear to auscultation. No wheezing, rhonchi, rales.. Heart: RRR without murmur, gallop, or rubs. No ectopy. Abdomen: Normal abdominal exam, Abdomen soft, non-tender. Bowel sounds normal. No masses, organomegaly. Musculoskeletal: No joint swelling, deformity, or tenderness. Health Maintenance List Depression Screening Never done Hepatitis C Screening Never done HIV Screening Never done Influenza Vaccine(1) Never done Covid-19 Vaccine(2023- season) Never done Cervical Cancer Screening due on 06/07/2025 DTaP,Tdap,Td Vaccine(10 - Td or Tdap) due on 10/22/2031 Hepatitis B Vaccine Completed HPV Vaccine Completed ASSESSMENT/PLAN: 1. Acute otitis media, unspecified otitis media type - ICD9: 382.9, ICD10: H66.90 (primary diagnosis) - Will begin treatment with as per antibiotic as written, see orders - Supportive care with plenty of fluids, rest, and analgesia prn. - Follow up in 3-5 days if symptoms persist or worsen. - CEFDINIR 300 MG CAPSULE 2. Wheezing - ICD9: 786.07, ICD10: R06.2 - XR CHEST 2V FRONTAL/LAT Dorita Larkin APRN.PROFESSOR OF PHYSICAL EDUCATION documented in this encounter [facility] 09-15-2023 Note HNO ID: [id number] Author: PRASANTH MONACO LPN Service: ? Author Type: LICENSED NURSE Type: Progress Notes Filed: 09/15/2023 11:09 Note Text: Scan on 09/15/2023 10:05 AM by ProviderGarrett PAStanleyC: Consultation - PT/OT/Speech [facility] 09-15-2023 History of Presen t illness Narrative Scan on 09/15/2023 10:05 AM by ProviderGarrett PAStanleyC: Consultation - PT/OT/Speech documented in this encounter [facility] 07-18-2023 Telephone encounter Note Pt called and requested her last (2 ) MRIs done to be faxed to [facility] [phone]. Done. Francisca Green LPN [facility] 07-18-2023 Miscellaneous Notes Pt called and requested her last (2 ) MRIs done to be faxed to [facility] [phone]. Done. Francisca Green LPN documented in this encounter [facility] 05-31-2023 History of Presen t illness Narrative Chief Complaint Patient presents with: Sore Throat Headache Head Congestion HPI Aniyah Hodgson is a 22 year old female who presents here today for Above Complaints.. Patient presents for head congestion, sore throat, cough and headache x2 weeks. Coughing up mucus and sinus drainage. OTC medications tried with no improvement. Past medical history, appointments, medications, allergies reviewed. 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 S/p surgery 01/17/2023 at [facility] Thoracic spine pain 04/29/2020 Well adult exam 04/21/2020 Last done: 04/21/2020 Previous Surgical History PAST SURGICAL HISTORY Procedure Laterality Date CYST/MOLE REMOVAL Left 2003 ganglion cyst IUD REMOVAL 08/02/2022 surgically removed PAST SURGICAL HISTORY OF 01/17/2023 T2-L2 posterior spinal arthrodesis and spinal instrumentation, [facility] SKIN BX, 1 LESION 2004 mole removal TYMPANOSTOMY GENERAL ANESTHESIA Bilateral 2008 Family History FAMILY HISTORY Problem Relation Age of Onset Ovarian cancer Maternal Grandmother Ovarian cancer Paternal Grandmother Patient Allergies ALLERGIES Allergen Reactions Augmentin [Amoxicil* Mental Status Change Patient states she was punching things and didn't know where she was Current Medications Current Outpatient Medications on File Prior to Visit Medication Sig cyanocobalamin (VITAMIN B-12) 1,000 mcg tab Take 1 tablet by mouth once daily. traZODone (DESYREL) 50 mg tablet Take 1 tablet by mouth daily at bedtime. oxycodone HCl (OXYCODONE ORAL) Take 1 tablet by mouth three times a day. Pt i taking roughly 4 to 5 times a day (Patient not taking: Reported on 02/17/2023) cyclobenzaprine (FLEXERIL) 5 mg tablet Take 5 mg by mouth three times a day. (Patient not taking: Reported on 02/17/2023) enoxaparin (LOVENOX) 40 mg/0.4 mL Inject 1 mg/kg/dose subcutaneously once daily. (Patient not taking: Reported on 02/17/2023) diphenhydrAMINE-Acetaminophen (TYLENOL PM EXTRA STRENGTH) 25-500 mg tab Take 2 tablets by mouth four times daily. (Patient not taking: Reported on 02/17/2023) docusate sodium (COLACE) 100 mg capsule Take 100 mg by mouth two times a day. (Patient not taking: Reported on 02/17/2023) polyethylene glycol 3350 (MIRALAX) 17 gram/dose powder Take 17 g by mouth one time only. Dissolve dose in 4 - 8 ounces of liquid and take as directed. sennosides (SENOKOT ORAL) Take 2 capsules by mouth. gabapentin (NEURONTIN) 300 mg capsule Take 300 mg by mouth three times a day. (Patient not taking: Reported on 02/17/2023) meloxicam (MOBIC) 7.5 mg tablet Take 1 tablet by mouth two times a day. (Patient not taking: Reported on 02/03/2023) tiZANidine (ZANAFLEX) 4 mg tablet Take 4 mg by mouth daily at bedtime. (Patient not taking: Reported on 02/03/2023) hydrocodone/acetaminophen (VICODIN ORAL) Take 1 tablet by mouth as needed. (Patient not taking: Reported on 02/03/2023) No current facility-administered medications on file prior to visit. Social History Social History Tobacco Use Smoking status: Former Packs/day: 0.50 Years: 4.00 Additional pack years: 0.00 Total pack years: 2.00 Types: Cigarettes Quit date: 12/05/2022 Years since quittin.4 Smokeless tobacco: Never Tobacco comments: 2 cigs per day Vaping Use Vaping Use: Never used Substance Use Topics Alcohol use: Never Drug use: Never Review of Symptoms REVIEW OF SYSTEMS SEE HPI EXAM: BP 113/74 Pulse 96 Resp 14 Wt 72.1 kg (159 lb) LMP 06/28/2022 (Approximate) BMI 24.67 kg/m General Appearance: Well appearing, alert, in no acute distress, well-hydrated, well nourished.. Oropharynx: Positive findings: mild oropharyngeal erythema. Neck: Supple, no adenopathy; thyroid symmetric, normal size, no bruits. Lungs: Lungs clear to auscultation. No wheezing, rhonchi, rales.. Heart: RRR without murmur, gallop, or rubs. No ectopy. Health Maintenance List Meningococcal B Vaccine: Consider Based On Risk(1 of 2 - Patient Seeks Protection) Never done Hepatitis C Screening Never done HIV Screening Never done Depression Assessment Never done Influenza Vaccine(1) due on 09/04/2023 Covid-19 Vaccine( - 2022- season) due on 02/04/2024 Pap Testing due on 06/07/2025 DTaP,Tdap,Td Vaccine(10 - Td or Tdap) due on 10/22/2031 Hepatitis B Vaccine Completed HPV Vaccine Completed ASSESSMENT/PLAN: 1. Sore throat - ICD9: 462, ICD10: J02.9 (primary diagnosis) - Rapid Strep negative in the office today - STREP A MOLECULAR (POC) 2. URI, acute - ICD9: 465.9, ICD10: J06.9 - Symptomatic treatment with prn analgesia - Supportive care with fluids and rest 3. Bacterial sinusitis - ICD9: 473.9, 041.9, ICD10: J32.9, B96.89 - Will begin treatment with Doxycycline - DOXYCYCLINE HYCLATE 100 MG TABLET Dorita Larkin APRN.PROFESSOR OF PHYSICAL EDUCATION documented in this encounter [facility] 04-14-2023 History of Presen t illness Narrative 22 y/o Aniyah Hodgson returns to the office. She is having quite a bit of pain at the upper portion of her instrumentation. Very tender to palpation at the screw heads. She has started therapy. No past medical history on file. Past Surgical History: Procedure Laterality Date FUSION POSTERIOR THORACIC Midline 01/17/2023 Laterality: Midline; Surgeon: Juan Rankin MD; Location: [facility] MA[facility] OR FUSION POSTERIOR LUMBAR Midline 01/17/2023 Laterality: Midline; Surgeon: Juan Rankin MD; Location: [facility] MAIN OR FUSION POSTERIOR LUMBAR EACH ADDL INTERSPACE ADD-ON PX Midline 01/17/2023 Laterality: Midline; Surgeon: Juan Rankin MD; Location: [facility] MAIN OR INSERTION SPINAL INSTRUMENTATION POSTERIOR SEGMENTAL ADD-ON PX (IP ONLY) Midline 01/17/2023 Laterality: Midline; Surgeon: Juan Rankin MD; Location: [facility] MAIN OR OSTEOTOMY SPINE 3 COLUMNS POSTERIOR APPROACH 1 VERTEBRAR Midline 01/17/2023 Laterality: Midline; Surgeon: Juan Rankin MD; Location: [facility] MAIN OR ASSISTANCE STEREOTACTIC NAVIGATION SPINAL ADD-ON PX Midline 01/17/2023 Laterality: Midline; Surgeon: Juan Rankin MD; Location: [facility] MAIN OR EXCISION GANGLION CYST SKIN BIOPSY mole removal TONSILLECTOMY ADENOIDECTOMY Current Outpatient Medications Medication Instructions acetaminophen (TYLENOL) 1,000 mg, Oral, EVERY 8 HOURS cyanocobalamin (VITAMIN B12) 1,000 mcg, Oral, DAILY AT BEDTIME Cyclobenzaprine (FLEXERIL) 5 mg, Oral, 3 TIMES DAILY NEEDED Enoxaparin Sodium (LOVENOX) 40 mg, Subcutaneous, EVERY 24 HOURS Gabapentin (NEURONTIN) 300 mg, 3 TIMES DAILY Meloxicam (MOBIC) 7.5 mg, Oral, 2 TIMES DAILY Methocarbamol 750 MG tablet naloxone 4 MG/0.1ML 1 spray, Nasal, ADMINISTER DIRECTED, [place] into the nose as directed. Call 911. If no response in 2 minutes use a new nasal spray in other nostril. Repeat until help arrives. oxyCODONE (ROXICODONE) 5 mg, Oral, EVERY 6 HOURS NEEDED tiZANidine (ZANAFLEX) 4 mg, Oral, EVERY 6 HOURS NEEDED traZODone 50 MG tablet 1 tablet, Oral, DAILY AT BEDTIME Allergies Allergen Reactions Amoxicillin-Pot Clavulanate Nausea and Vomiting Other reaction(s): Mental Status Change Patient states she was punching things and didn't know where she was Vitals: 04/14/23 1443 Pulse: 98 Temp: 97.1 F (36.2 C) SpO2: 98% Musculoskeletal exam: Ambulates without issue. Incision well healed. Significant tenderness to palpation at screw heads in upper thoracic spine. 5/5 throughout BLE5/5 in BUE. No sensory deficits. Overall sagittal and coronal spinal alignment within normal parameters. Normal strength noted to both lower extremities as well as upper extremities on bench testing Radiographs: XR Scoliosis with stable instrumentation without hardware failure. No significant change compared to prior XR. Assessment: -status post T 2-L2 fixation fusion, T4-10 PCO's completed 01/17/2023 for Scheuermann's kyphosis deformity correction -prior history nicotine addiction currently nicotine free since surgery Recommendations: Patient has significant pain to palpation of hardware. Recommended continued PT with focus on strengthening thoracic paraspinal musculature. She will see me back in the office in 3 months. XR at that time. Ok to start strengthening. Juan Rankin MD documented in this encounter [facility] 03-03-2023 History of Presen t illness Narrative 22 y/o Aniyah Hodgson seen and re-evaluated for her 2nd postop visit. On 01/17/2023 underwent T2-L2 posterior spinal arthrodesis/instrumentation. She underwent multi-level posterior column osteotomies T4-T10 for spinal deformity correction for Scheuermann's kyphosis. Surgery completed by Dr. Rankin. Patient has recovered well post operatively however does note some persistent left shoulder pain that has been present since awakening from OR. Also has struggled with improving orthostatic hypotension, notes that if she stands for prolonged periods of time that she will get flush and diaphoretic and need to sit, upon returning to a sitting position her symptoms resolve. PCP sent to ED a few weeks ago where imaging was performed without abnormality, has increased fluid intake, overall feels that these symptoms continue to improve over time. No longer on narcotics. She is taking Flexeril as well judiciously for spasms. Denies any bowel bladder changes no groin numbness. Denies any traumatic inciting events. Not requiring any walker or cane for ambulatory aid at this point postoperatively. She has an appetite. No past medical history on file. Past Surgical History: Procedure Laterality Date FUSION POSTERIOR THORACIC Midline 01/17/2023 Laterality: Midline; Surgeon: Juan Rankin MD; Location: [facility] MA[facility] OR FUSION POSTERIOR LUMBAR Midline 01/17/2023 Laterality: Midline; Surgeon: Juan Rankin MD; Location: [facility] OR FUSION POSTERIOR LUMBAR EACH ADDL INTERSPACE ADD-ON PX Midline 01/17/2023 Laterality: Midline; Surgeon: Juan Rankin MD; Location: [facility] MA[facility] OR INSERTION SPINAL INSTRUMENTATION POSTERIOR SEGMENTAL ADD-ON PX (IP ONLY) Midline 01/17/2023 Laterality: Midline; Surgeon: Juan Rankin MD; Location: [facility] MA[facility] OR OSTEOTOMY SPINE 3 COLUMNS POSTERIOR APPROACH 1 VERTEBRAR Midline 01/17/2023 Laterality: Midline; Surgeon: Juan Rankin MD; Location: [facility] MA[facility] OR ASSISTANCE STEREOTACTIC NAVIGATION SPINAL ADD-ON PX Midline 01/17/2023 Laterality: Midline; Surgeon: Juan Rankin MD; Location: [facility] MA[facility] OR EXCISION GANGLION CYST SKIN BIOPSY mole removal TONSILLECTOMY ADENOIDECTOMY Current Outpatient Medications Medication Instructions acetaminophen (TYLENOL) 1,000 mg, Oral, EVERY 8 HOURS cyanocobalamin (VITAMIN B12) 1,000 mcg, Oral, DAILY AT BEDTIME Cyclobenzaprine (FLEXERIL) 5 mg, Oral, 3 TIMES DAILY NEEDED Enoxaparin Sodium (LOVENOX) 40 mg, Subcutaneous, EVERY 24 HOURS Gabapentin (NEURONTIN) 300 mg, Oral, 3 TIMES DAILY naloxone 4 MG/0.1ML 1 spray, Nasal, ADMINISTER DIRECTED, [place] into the nose as directed. Call 911. If no response in 2 minutes use a new nasal spray in other nostril. Repeat until help arrives. oxyCODONE (ROXICODONE) 5 mg, Oral, EVERY 6 HOURS NEEDED tiZANidine (ZANAFLEX) 4 mg, Oral, EVERY 6 HOURS NEEDED traZODone 50 MG tablet 1 tablet, Oral, DAILY AT BEDTIME Allergies Allergen Reactions Amoxicillin-Pot Clavulanate Nausea and Vomiting Other reaction(s): Mental Status Change Patient states she was punching things and didn't know where she was Vitals: 03/03/23 1413 Pulse: 81 Temp: 96.7 F (35.9 C) SpO2: 97% Musculoskeletal exam: Thoracic incision well healed without erythema drainage fluctuance or mass. Patient is alert orient x3 nontoxic in appearance. She is walking without assistive device in the community. Reflexes diminished at the ankle knee negative Homans range of motion was not assessed the spine due to recent fusion. 5/5 throughout BLE, 4+/5 pain limited LEFT SA otherwise 5/5 in BUE. No sensory deficits. Overall sagittal and coronal spinal alignment within normal parameters. Normal strength noted to both lower extremities as well as upper extremities on bench testing Radiographs: XR Scoliosis with stable instrumentation without hardware failure. Assessment: -status post T 2-L2 fixation fusion, T4-10 PCO's completed 01/17/2023 for Scheuermann's kyphosis deformity correction -prior history nicotine addiction currently nicotine free since surgery - improving orthostasis hypotension Recommendations: -I have discussed the above findings today with patient. -patient encouraged to follow back up with her PCP as well regarding the dizziness and orthostasis, overall seems to be improving. Possible recovering irritation to the sympathetic plexus from the degree of spinal deformity correction however overall no contraindication to progressing activities given slow resolution. Would defer any medical therapy to primary care. - Patient will continue to avoid NSAIDs over the next several months to optimize early bone graft incorporation. Today she was provided an external bone growth stimulator jacket to wear as directed on a daily basis for the 1st fiber 6 months to optimize early bone graft incorporation -patient also encouraged to remain nicotine free over the next several months during the acute bone healing phase status post spinal arthrodesis - Will see her back in 6 weeks with XR scoliosis on arrival. - She was instructed to call sooner with any questions or concerns. I saw and independently examined the patient on 03/03/23. I agree with the history, examination, and medical decision making as outlined. Juan Rankin MD documented in this encounter [facility] 02-22-2023 Miscellaneous Notes Pt returned call and given provider's message below with verbalized understanding. Left message for patient to return call to office John Perales Cma Please let patient know their MRI is normal. documented in this encounter [facility] 02-17-2023 Miscellaneous Notes Addended by: DORITA LARKIN on: 02/17/2023 03:51 PM Modules accepted: Orders Addended by: DORITA LARKIN on: 02/17/2023 03:18 PM Modules accepted: Orders Addended by: DORITA LARKIN on: 02/17/2023 02:57 PM Modules accepted: Orders documented in this encounter [facility] 02-17-2023 History of Presen t illness Narrative Radiology Service Progress Note PATIENT NAME: Aniyah Hodgson DATE OF SERVICE: February 17, 2023 TIME: 3:08 PM PATIENT IDENTITY VERIFICATION COMPLETED USING TWO (2) IDENTIFIERS: Name and Date of confirmed by patient verbally. FALL SCREENING: Has the patient had 2 falls in the last year or 1 fall with injury or currently using an Ambulatory Assistive Device (Walker, Cane, Wheelchair, Crutches, etc.)? No PATIENT GENDER DATA: Female. status: : No status: NO. PATIENT RELEVANT IMPLANT DATA REVIEWED: Not Applicable RADIOLOGY DEPARTMENT: General X-ray: Exam(s) Completed: Spine X-Ray(s): Thoracic and Lumbar AP / LAT / L5-S1 PERIPHERAL IV DATA: Not applicable SIGNED BY: RT Luis E(R) February 17, 2023 3:08 PM documented in this encounter [facility] 02-17-2023 History of Presen t illness Narrative Chief Complaint Patient presents with: ED Follow-up HPI Aniyah Hodgson is a 22 year old female who presents here today for Above Complaints.. Patient presents for ER follow up. Patient was sent to Er due to low bp and dizziness. Patient had surgery about 1 month ago for spinal fusion. Patient states since then she has had low bp and changes in vision. Patient reports she went to the [place] with her surgeon and he told her to follow up with PCP because this is not a surgical problem despite symptoms starting directly after surgery. Patient also reports numbness and weakness to lower extremities to the point she sometimes losing balance because her legs give out. Past medical history, appointments, medications, allergies reviewed. 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 S/p surgery 01/17/2023 at [facility] Thoracic spine pain 04/29/2020 Well adult exam 04/21/2020 Last done: 04/21/2020 Previous Surgical History PAST SURGICAL HISTORY Procedure Laterality Date CYST/MOLE REMOVAL Left 2003 ganglion cyst IUD REMOVAL 08/02/2022 surgically removed PAST SURGICAL HISTORY OF 01/17/2023 T2-L2 posterior spinal arthrodesis and spinal instrumentation, [facility] SKIN BX, 1 LESION 2004 mole removal TYMPANOSTOMY GENERAL ANESTHESIA Bilateral 2008 Family History FAMILY HISTORY Problem Relation Age of Onset Ovarian cancer Maternal Grandmother Ovarian cancer Paternal Grandmother Patient Allergies ALLERGIES Allergen Reactions Augmentin [Amoxicil* Mental Status Change Patient states she was punching things and didn't know where she was Current Medications Current Outpatient Medications on File Prior to Visit Medication Sig cyanocobalamin (VITAMIN B-12) 1,000 mcg tab Take 1 tablet by mouth once daily. traZODone (DESYREL) 50 mg tablet Take 1 tablet by mouth daily at bedtime. oxycodone HCl (OXYCODONE ORAL) Take 1 tablet by mouth three times a day. Pt i taking roughly 4 to 5 times a day (Patient not taking: Reported on 02/17/2023) cyclobenzaprine (FLEXERIL) 5 mg tablet Take 5 mg by mouth three times a day. (Patient not taking: Reported on 02/17/2023) enoxaparin (LOVENOX) 40 mg/0.4 mL Inject 1 mg/kg/dose subcutaneously once daily. (Patient not taking: Reported on 02/17/2023) diphenhydrAMINE-Acetaminophen (TYLENOL PM EXTRA STRENGTH) 25-500 mg tab Take 2 tablets by mouth four times daily. (Patient not taking: Reported on 02/17/2023) docusate sodium (COLACE) 100 mg capsule Take 100 mg by mouth two times a day. (Patient not taking: Reported on 02/17/2023) polyethylene glycol 3350 (MIRALAX) 17 gram/dose powder Take 17 g by mouth one time only. Dissolve dose in 4 - 8 ounces of liquid and take as directed. sennosides (SENOKOT ORAL) Take 2 capsules by mouth. gabapentin (NEURONTIN) 300 mg capsule Take 300 mg by mouth three times a day. (Patient not taking: Reported on 02/17/2023) meloxicam (MOBIC) 7.5 mg tablet Take 1 tablet by mouth two times a day. (Patient not taking: Reported on 02/03/2023) tiZANidine (ZANAFLEX) 4 mg tablet Take 4 mg by mouth daily at bedtime. (Patient not taking: Reported on 02/03/2023) hydrocodone/acetaminophen (VICODIN ORAL) Take 1 tablet by mouth as needed. (Patient not taking: Reported on 02/03/2023) No current facility-administered medications on file prior to visit. Social History Social History Tobacco Use Smoking status: Former Packs/day: 0.50 Years: 4.00 Additional pack years: 0.00 Total pack years: 2.00 Types: Cigarettes Quit date: 12/05/2022 Years since quittin.2 Smokeless tobacco: Never Tobacco comments: 2 cigs per day Vaping Use Vaping Use: Never used Substance Use Topics Alcohol use: Never Drug use: Never Review of Symptoms REVIEW OF SYSTEMS SEE HPI EXAM: BP 111/77 Pulse 102 Resp 14 Wt 69.4 kg (153 lb) LMP 06/28/2022 (Approximate) BMI 23.74 kg/m General Appearance: Well appearing, alert, in no acute distress, well-hydrated, well nourished.. Skin: Incision to midline back from t2-l2 well approximated and intact. No redness, drainage, warmth noted.. Extremities: Positive findings: Loss of sensation to monofilament testing in both feet right worse than left from toes to ankle. . Health Maintenance List Meningococcal B Vaccine: Consider Based On Risk(1 of 2 - Patient Seeks Protection) Never done Hepatitis C Screening Never done HIV Screening Never done Depression Assessment Never done Influenza Vaccine(1) due on 09/04/2023 Covid-19 Vaccine(1) due on 02/04/2024 Pap Testing due on 06/07/2025 DTaP,Tdap,Td Vaccine(10 - Td or Tdap) due on 10/22/2031 Hepatitis B Vaccine Completed HPV Vaccine Completed ASSESSMENT/PLAN: 1. Adverse effect of treatment, subsequent encounter - ICD9: V58.89, ICD10: T88.9XXD (primary diagnosis) - XR LUMBAR MOTION 4V AP/LAT/ FLEX/EXT - XR THORACIC GENERAL 3V AP/LAT/SWIMMERS - CBC + DIFF - MRI LUMBAR SPINE WO/W IVCON - IV CONTRAST (RADIOLOGY PROCEDURE) - MRI THORACIC SPINE WO IVCON 2. Weakness of both lower extremities - ICD9: 729.89, ICD10: R29.898 - XR LUMBAR MOTION 4V AP/LAT/ FLEX/EXT - XR THORACIC GENERAL 3V AP/LAT/SWIMMERS 3. Numbness and tingling of both lower extremities - ICD9: 782.0, ICD10: R20.0, R20.2 - XR LUMBAR MOTION 4V AP/LAT/ FLEX/EXT - XR THORACIC GENERAL 3V AP/LAT/SWIMMERS - MRI LUMBAR SPINE WO/W IVCON Dorita Larkin APRN.PROFESSOR OF PHYSICAL EDUCATION documented in this encounter [facility] 02-03-2023 Discharge summary Note Date/Time February 03, 2023 5:16pm [facility] Medical Records Department [address] [place] [address] Emergency Department Summary 02/03/23 MR#: [id number] Acct: [id number] Name: ANIYAH HODGSON Rep #:[id number] : 2000 22 From: Yovany Zhneg MD PCP: Dr. Toni Barrera MD Status:REG ER Location: ED HPI History of Present Illness Chief Complaint: Hypotension Detail of Chief Complaint: To ER for low blood pressure, shortness of breath Informant: patient Onset/Context/Timing Context: Sudden Onset Timing: Intermittent Quality: Lightheadedness, shortness of breath, pain to breathe Location: Not applicable Current Severity: Mild Maximum Severity: Moderate Worsened by: Upright position Relieved by: Supine position Associated Symptoms Associated Symptoms: Sensation of warmth when upright Narrative Narrative: Patient is a 22-year-old female who presents because of systolic blood pressure of 80 and upright position. Patient had spine surgery with fusion of T2-L2 at [facility] January 17. She does complain of discomfort in her back when she breathes. She denies leg pain, swelling or discoloration. She informed that she required2 units of blood after surgery. She denies fever, chills or night sweats. She denies headache, visual, ocular auditory symptoms. She denies neck pain or neck stiffness. She denies chest pain. She does complain of shortness of breath. She denies orthopnea or PND. She denies abdominal pain, nausea, vomiting or diarrhea. She denies black or maroon-colored stool. She denies dysuria, frequency, urgency or hematuria. Patient had an IUD placed in July of this year. Patient denies paresthesia, anesthesia or motor weakness upper or lower extremity. She denies problems with balance or coordination. Prior similar symptoms: Yes Recent Illness/Hospitalization: No PFSH [facility] Medical History Anxiety Back pain Genetic testing of female History of pain when walking IUD complication Kyphosis Migraine headache Pain in left tibia Restless legs Smoker Status post hysteroscopy (~07/23/22) Home Medications hydrocodone 5 mg-acetaminophen 300 mg tablet 1 tab PO BID PRN Pain 07/16/22 [History Last Taken Unknown] medroxyprogesterone 150 mg/mL intramuscular suspension (Depo-Provera) 150 mg IM [id number] #1 mL 10/12/22 [Rx Last Taken Unknown] Allergy/AdvReac Type Severity Reaction Status Date / Time amoxicillin trihydrate Allergy Unknown Verified 02/03/23 15:38 [From Augmentin] potassium clavulanate Allergy Unknown Verified 02/03/23 15:38 [From Augmentin] Family History Grandmother Cancer, Onset Age: 27 Ovarian Grandmother Cancer, Onset Age: 60 ovarian Surgical History History of removal of skin mole History of surgery on wrist Hx of tonsillectomy Myringotomy tube status Social History adopted: No household members: significant other housing: house current occupational status: employed current occupation: [employer] pets and animals: No history of recent travel: Yes out of state: Yes sexually active: Yes Smoking Status: Former smoker second hand exposure: No alcohol intake: never substance use type: does not use caffeine: Yes Type: carbonated beverages Number of servings: 5 and tea what type of physical activity do you participate in: none seatbelt use: never do you feel safe at home: Yes additional social history: FAMILIA- Curly RUBIO ROS ED Constitutional Constitutional ED: Denies chills, fever(s), subjective, sweats or weight loss Eyes Eyes: Denies blurry vision, change in vision or diplopia ENT ENT ED: Denies ear pain, rhinorrhea or sore throat Cardiovascular Cardiovascular: Denies chest pain, orthopnea, palpitations, paroxysmal nocturnaldyspnea or racing heartbeat Respiratory/Chest Respiratory/Chest: Reports dyspnea; Denies cough, orthopnea, paroxysmal nocturnal dyspnea or sputum Gastrointestinal Gastrointestinal: Denies abdominal pain, diarrhea, melena, nausea or vomiting Genitourinary Genitourinary ED: Denies dysuria, hematuria or urinary frequency Musculoskeletal Musculoskeletal: Reports back pain; Denies arthralgias, myalgias or neck pain Integumentary Denies rash Neurologic Neurologic: Reports weakness; Denies headache(s) or paresthesias Psychiatric Psychiatric: Reports anxiety; Denies depression Endocrine Endocrinology: Denies cold intolerance or heat intolerance Hematologic/Lymphatic Hematologic/Lymphatic: Reports systems reviewed and no addt'l complaints, exceptas documented EXAM Physical Exam Narrative Exam Narrative: Signs are remarkable for heart rate of 124. Patient admits she is anxious. Const Vital Signs: 02/03/23 15:38 02/03/23 17:25 02/03/23 17:25 Temperature 97.2 F L Temperature Source Temporal Pulse Rate 124 H 73 Pulse Rate [Lying] Pulse Rate [Sitting (for 1 minute prior to obtaining)] Pulse Rate [Standing (for 1 minute prior to obtaining)] Respiratory Rate 16 16 Respiratory Effort Normal Respiratory Pattern Normal Blood Pressure 125/70 H 113/73 Blood Pressure [Lying] Blood Pressure [Sitting (for 1 minute prior to obtaining)] Blood Pressure [Standing (for 1 minute prior to obtaining)] Blood Pressure Mean 88 86 Blood Pressure Mean [Lying] Blood Pressure Mean [Sitting (for 1 minute prior to obtaining)] Blood Pressure Mean [Standing (for 1 minute prior to obtaining)] Pulse Ox 100 100 Oxygen Delivery Method Room Air Room Air 02/03/23 18:06 02/03/23 19:56 02/03/23 19:00 Temperature Temperature Source Pulse Rate 82 Pulse Rate [Lying] 100 78 Pulse Rate [Sitting (for 1 minute prior to obtaining)] 107 H Pulse Rate [Standing (for 1 minute prior to obtaining)] 140 H 120 H Respiratory Rate 16 Respiratory Effort Respiratory Pattern Blood Pressure 109/78 Blood Pressure [Lying] 105/60 112/70 Blood Pressure [Sitting (for 1 minute prior to obtaining)] 128/85 H Blood Pressure [Standing (for 1 minute prior to obtaining)] 117/73 116/84 H Blood Pressure Mean 88 Blood Pressure Mean [Lying] 75 84 Blood Pressure Mean [Sitting (for 1 minute prior to obtaining)] 99 Blood Pressure Mean [Standing (for 1 minute prior to obtaining)] 87 94 Pulse Ox 100 Oxygen Delivery Method Room Air 02/03/23 21:00 Temperature Temperature Source Pulse Rate 101 H Pulse Rate [Lying] Pulse Rate [Sitting (for 1 minute prior to obtaining)] Pulse Rate [Standing (for 1 minute prior to obtaining)] Respiratory Rate 16 Respiratory Effort Respiratory Pattern Blood Pressure 108/57 L Blood Pressure [Lying] Blood Pressure [Sitting (for 1 minute prior to obtaining)] Blood Pressure [Standing (for 1 minute prior to obtaining)] Blood Pressure Mean 74 Blood Pressure Mean [Lying] Blood Pressure Mean [Sitting (for 1 minute prior to obtaining)] Blood Pressure Mean [Standing (for 1 minute prior to obtaining)] Pulse Ox 100 Oxygen Delivery Method Room Air Positive well nourished and well developed; Negative for obese, cachectic, contractures or unkempt General Appearance ED: well developed and NAD; Negative for unkempt, cachectic, contractures, cyanotic or diaphoretic Nutritional Appearance: Negative for cachectic or obese HEENT Reports moist mucous membranes HEENT Narrative: Head is atraumatic and normocephalic. Ears are normal. Nares are patent. Posterior pharynx out erythema or exudate. Mucosa is moist. Eyes PERRL and EOMs intact bilaterally General Eye ED: Negative for pale conjunctiva or scleral icterus Neck no lymphadenopathy, supple and no JVD Chest Wall inspection of chest normal and palpation of chest normal Resp normal respiratory effort and clear to auscultation bilaterally Cardio regular rhythm, S1 normal heart sound, S2 normal heart sound and no murmurs Rate: tachycardic GI normal to inspection, nondistended, normoactive bowel sounds, non-tender, non-distended and no masses; Negative for hepatosplenomegaly Back/Spine no CVA tenderness Back/Spine Narrative: Patient has appropriate tenderness over her thoracic spine due to recent surgery. Thoracic Spine / Upper Back: thoracic spinal tenderness Extremity normal to inspection Extremity Narrative: There is no asymmetry, swelling, discoloration, leg vein distention, palpable cords or tenderness along the distribution of the deep venous system. Neuro oriented x3, CN's II-XII intact bilaterally and no sensory deficits noted Neuro Narrative: No clonus or Babinski sign noted. Sensorium / Orientation: alert Motor Exam: strength 5/5 throughout Psych Appearance: Negative for unkempt Mood & Affect: anxious Skin Skin Narrative: Well-healing wound. There is no fluctuance. There is no warmth. MDM MDM MDM Narrative Medical decision making narrative: The patient does not appear anemic. Will obtain orthostatic vital signs based on her history. CBC was obtained to assess H&H. Suspect is greater than 10 since her conjunctive is pink. BMP to assess BUN to creatinine ratio to assess for hydration status. If patient is not orthostatic and there is no significantdrop in her hemoglobin from baseline we will need to perform CTA since she has ahigh pretest probability for PE with complaint of shortness of breath, tachycardia and surgery 2 weeks ago. Prior records were reviewed. 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 She did havean IUD placed July 2022. History & Record Review Discussion w/independent historian: Patient Additional record(s) reviewed:: Prior outpatient record, Prior ED visit and Prior labs Lab Data Attestation: I reviewed the patient's lab results. Lab results narrative: H&H is 11.7 and 37.0. There is a drop since July. Basic metabolic panel is normal with a normal BUN to creatinine ratio. Labs: Laboratory Results - last 24 hr 02/03/23 17:20 WBC 5.9 RBC 3.97 L Hgb 11.7 L Hct 37.0 MCV 93.2 MCH 29.5 MCHC 31.6 L RDW Std Deviation 41.5 RDW Coeff of Pierre 12.2 Plt Count 318 MPV 9.5 Immature Gran % (Auto) 0.300 Neut % (Auto) 72.7 H Lymph % (Auto) 18.4 L Beckham % (Auto) 7.4 Eos % (Auto) 0.5 Baso % (Auto) 0.7 Absolute Neuts (auto) 4.3 Absolute Lymphs (auto) 1.09 Nucleated RBC % 0 Sodium 139 Potassium 4.1 Chloride 106 Carbon Dioxide 27.0 Anion Gap 6 BUN 9 Creatinine 0.60 Estim Creat Clear Calc 145.85 Est GFR (MDRD) Af Amer 159 Est GFR (MDRD) Non-Af 131 BUN/Creatinine Ratio 15.1 Glucose 97 Calcium 9.2 EKG Initial EKG: Attestation: I personally reviewed and interpreted this EKG as follows: Interpretation: Sinus Rhythm (Rate is 84. The EKG is normal. PA intervalis 130 ms. QS duration 82 ms. QT duration 348 ms. [place] is normal.) Treatment and Re-Evaluation :: Orthostatic vital signs are positive. 1 L normal saline was ordered. Has significant tachycardia after infusion of first liter. Second liter was infused. Heart rate is improved significantly. Patient is now complaining of heartburn. GI cocktail was ordered. At the time of discharge patient voiced to frustration because she has been lying here for hours. Patient was informed that the Emergency Department is busy. I apologize for her waiting in any inconvenience. Since her heart rate has improved markedly she is no longer orthostatic will discharge to home. She did receive a GI cocktail for her heartburn. Hemoglobin 2 days ago was 11.6. Hemoglobin on January 20 was 9.3 and reason for transfusion, 2 units. Patient was instructed to take iron tablets twice a day. She also was instructed take either Metamucil or MiraLAX 3 times a day. She states she has a problem with constipation already. Recommended not using laxative but bulking agent. Discharge Plan Triage Chief Complaint: Hypotension ED Provider: Yovany Zheng Dx/Rx/DC Orders Clinical Impression: Heartburn symptom, Orthostatic hypotension, Sinus tachycardia seen on cardiac cath lab radiology technologist, Postoperative anemia, Constipation Instructions: Iron Supplements, ED Hypotension, Orthostatic Prescriptions: No Action hydrocodone-acetaminophen 5-300 mg tablet 1 tab PO BID PRN (Reason: Pain) medroxyprogesterone [Depo-Provera] 150 mg/mL suspension 150 mg IM [id number] Qty: 1 3RF Primary Care Provider: Toni Barrera Referrals: Toni Barrera MD [Primary Care Provider] - 3-5 Days if not improving Activity Restrictions/Additional Instructions: 1. Recommend taking an iron tablet in the morning and at night. 2. Recommend Metamucil or MiraLAX 3 times a day for the next week then reduce to twice a day while taking iron tablets 3. Recommend follow-up with your doctor in 3 to 5 days for repeat examination Disposition Disposition: Home, Self Care What to do if you have Problems For any increased pain, shortness of breath, bleeding, nausea or vomiting, chestpain, or any unexpected problems, contact your Primary Care Provider. Call [facility] ([phone]) or report to the closest Emergency Room. Call 911 if necessary. 02/03/232212 <Electronically signed by Yovany Zheng MD> Cosigner Signature (if applicable): CC: Dr. Toni Barrera MD ~ Signed [facility] Work Phone: 1(437) 272-478411-30-2023 History of Present illness Narrative* Vy Garibay APRN.PROFESSOR OF PHYSICAL EDUCATION - 02/03/2023 3:04 PM EST Chief Complaint Patient presents with: b/p drops: Pt states had back surgery b/p drops real low woke up with this happening after surgery. HPI Aniyah Hodgson is a 22 year old female who presents here today for Above Complaints. Aniyah is an established patient of Dr. Holly MD. She is a new patient to me today. Concerns today.. Post-op spinal fixation fusion surgery d/t scheuermann's kyphosis deformity correction about 2 weeks ago. Reports feeling dizzy, lightheaded, and SOB since waking up from surgery but significantly worsenedover the last 3 days. Reports BP has been low since. BP reading in office today 80/60 x 3 readings.Has been taking oxycodone every 4-6 hours as instructed per pt -- pt reports pain level is bearableand managed well currently. Reports severe sweating and chills that started today. No fever in office or that she knows of at home. No sick contacts. Tachycardic in office. WBC and H&H normal from CBC completed on Tuesday at outside facility. Past medical history, appointments, medications, allergies reviewed. 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 S/p surgery 01/17/2023 at [facility] Thoracic spine pain 04/29/2020 Well adult exam 04/21/2020 Last done: 04/21/2020 Previous Surgical History PAST SURGICAL HISTORY Procedure Laterality Date CYST/MOLE REMOVAL Left 2003 ganglion cyst IUD REMOVAL 08/02/2022 surgically removed PAST SURGICAL HISTORY OF 01/17/2023 T2-L2 posterior spinal arthrodesis and spinal instrumentation, [facility] SKIN BX, 1 LESION 2004 mole removal TYMPANOSTOMY GENERAL ANESTHESIA Bilateral 2008 Family History FAMILY HISTORY Problem Relation Age of Onset Ovarian cancer Maternal Grandmother Ovarian cancer Paternal Grandmother Patient Allergies ALLERGIES Allergen Reactions Augmentin [Amoxicil* Mental Status Change Patient states she was punching things and didn't know where she was Current Medications Current Outpatient Medications on File Prior to Visit Medication Sig oxycodone HCl (OXYCODONE ORAL) Take 1 tablet by mouth three times a day. Pt i taking roughly 4 to 5times a day cyclobenzaprine (FLEXERIL) 5 mg tablet Take 5 mg by mouth three times a day. enoxaparin (LOVENOX) 40 mg/0.4 mL Inject 1 mg/kg/dose subcutaneously once daily. diphenhydrAMINE-Acetaminophen (TYLENOL PM EXTRA STRENGTH) 25-500 mg tab Take 2 tablets by mouth four times daily. docusate sodium (COLACE) 100 mg capsule Take 100 mg by mouth two times a day. polyethylene glycol 3350 (MIRALAX) 17 gram/dose powder Take 17 g by mouth one time only. Dissolve dose in 4 - 8 ounces of liquid and take as directed. sennosides (SENOKOT ORAL) Take 2 capsules by mouth. gabapentin (NEURONTIN) 300 mg capsule Take 300 mg by mouth three times a day. cyanocobalamin (VITAMIN B-12) 1,000 mcg tab Take 1 tablet by mouth once daily. traZODone (DESYREL) 50 mg tablet Take 1 tablet by mouth daily at bedtime. meloxicam (MOBIC) 7.5 mg tablet Take 1 tablet by mouth two times a day. (Patient not taking: Reported on 02/03/2023) tiZANidine (ZANAFLEX) 4 mg tablet Take 4 mg by mouth daily at bedtime. (Patient not taking: Reported on 02/03/2023) hydrocodone/acetaminophen (VICODIN ORAL) Take 1 tablet by mouth as needed. (Patient not taking: Reported on 02/03/2023) No current facility-administered medications on file prior to visit. Social History Social History Tobacco Use Smoking status: Former Packs/day: 0.50 Years: 4.00 Additional pack years: 0.00 Total pack years: 2.00 Types: Cigarettes Quit date: 12/05/2022 Years since quittin.1 Smokeless tobacco: Never Tobacco comments: 2 cigs per day Vaping Use Vaping Use: Never used Substance Use Topics Alcohol use: Never Drug use: Never REVIEW OF SYSTEMS: as above Reviewed relevant PMHx, PSHx, Social Hx, current medications and allergies. Review of Symptoms REVIEW OF SYSTEMS See HPI. EXAM: BP 80/60 (BP Site: Left Arm, BP Position: Sitting, BP Cuff Size: Regular Adult) Pulse (!) 127 Temp 36.6 C (97.9 F) Wt 69.5 kg (153 lb 3.2 oz) LMP 06/28/2022 (Approximate) SpO2 99% BMI 23.77 kg/m Limited assessment due to sending patient to ER for further, more urgent evaluation. Pt diaphoretic and pale. Pt SOB with exertion when pacing around room. Able to ambulate without difficulties. Hypotension x 3 readings in both arms -- 80s/50-60s Health Maintenance List Meningococcal B Vaccine: Consider Based On Risk(1 of 2 - Patient Seeks Protection) Never done Hepatitis C Screening Never done HIV Screening Never done Depression Assessment Never done Influenza Vaccine(1) due on 09/04/2023 Covid-19 Vaccine(1) due on 02/04/2024 Pap Testing due on 06/07/2025 DTaP,Tdap,Td Vaccine(10 - Td or Tdap) due on 10/22/2031 Hepatitis B Vaccine Completed HPV Vaccine Completed ASSESSMENT/PLAN: 1. S/P spinal fusion - ICD9: V45.4, ICD10: Z98.1 (primary diagnosis) From 2 weeks ago. Hypotension, SOB, dizziness, and concerns for infection given chills and diaphoresis. Concerns for severe anemia, despite H&H normal from lab work 3 days ago. Worried for sudden blood loss from unknown origin. Sent pt to ER -- [facility]. Grandmother driving patient there now. Report called. 2. Kyphosis of thoracic region, unspecified kyphosis type - ICD9: 737.10, ICD10: M40.204 See above. 3. Hypotension, unspecified hypotension type - ICD9: 458.9, ICD10: I95.9 Urgent ER evaluation warranted. Grandmother at appointment with patient and will drive her across the street. Report called to [facility], ER. 4. Dizziness - ICD9: 780.4, ICD10: R42 Urgent ER evaluation warranted. Grandmother at appointment with patient and will drive her across the street. Report called to [facility], ER. 5. Diaphoresis - ICD9: 780.8, ICD10: R61 Urgent ER evaluation warranted. Grandmother at appointment with patient and will drive her across the street. Report called to [facility], ER. 6. SOB (shortness of breath) - ICD9: 786.05, ICD10: R06.02 Urgent ER evaluation warranted. Grandmother at appointment with patient and will drive her across the street. Report called to [facility], ER. Follow-up with PCP team. Prescription instructions reviewed with patient as applicable. Potential red flag symptoms discussed with the patient. Reviewed appropriate action plan to take if red flag symptoms occur. Patient agreeable to treatment plan. Vy Lyon APRN.PROFESSOR OF PHYSICAL EDUCATION [address] [place] [address] [facility] Discharge instructions Additional Instructions 1. Recommend taking an iron tablet in the morning and at night. 2. Recommend Metamucil or MiraLAX 3 times a day for the next week then reduce to twice a day while taking iron tablets 3. Recommend follow-up with your doctor in 3 to 5 days for repeat examination [facility] Work Phone: [phone] 193-206311-18-2023 Plan of care note* Plan of Care - Velia Christopher RN - 01/22/2023 11:47 AM EST Problem: Patient Care Overview Goal: Plan of Care Review Outcome: Completed Goal: Individualization & Mutuality Outcome: Completed Goal: Discharge Needs Assessment Outcome: Completed Goal: Interdisciplinary Rounds/Family Conf Outcome: Completed Problem: OT - Dressing Goal: Lower Body Dressing Description: Pt will complete LE dressing tasks with modified independence for improved ability to complete self-care activities. Outcome: Completed Problem: OT - Endurance Goal: Endurance Functional Mobilty Around Home Description: Pt will complete distance needed for limited community mobility. Outcome: Completed Problem: PT - Mobility Goal: Ambulation Description: Pt will ambulate 150 feet with least restrictive device with supervision to improve ability to navigate home environment. Outcome: Completed Goal: Stairs Description: Pt will ascend/descend 3 stairs with 1 railings with supervision with least restrictive device to improve ability to perform functional mobility necessary in recommended discharge environment. Outcome: Completed Problem: PT - Transfers Goal: Supine <-> Sit Description: Pt will perform bed mobility with flat bed & no rail with supervision in order to improve functional mobility and safety. Outcome: Completed Goal: Sit <-> Stand Description: Pt will perform sit to/from stand transfers with supervision with least restrictive device in order to improve functional mobility and safety. Outcome: Completed Problem: Pain, Acute (Adult) Goal: Identify Related Risk Factors and Signs and Symptoms Description: Related risk factors and signs and symptoms are identified upon initiation of Human Response Clinical Practice Guideline (CPG) Outcome: Completed Goal: Acceptable Pain Control/Comfort Level Description: Patient will demonstrate the desired outcomes by discharge/transition of care. Outcome: Completed Problem: OT - Transfers Goal: Transfers Logroll Description: Pt will properly utilize logroll technique transfer to EOB with modified independence,in order to follow precautions and improve participation in ADLs. Outcome: Completed [facility]11-18-2023 Miscellaneous Notes* Plan of Care - Velia Christopher RN - 01/22/2023 11:47 AM EST Problem: Patient Care Overview Goal: Plan of Care Review Outcome: Completed Goal: Individualization & Mutuality Outcome: Completed Goal: Discharge Needs Assessment Outcome: Completed Goal: Interdisciplinary Rounds/Family Conf Outcome: Completed Problem: OT - Dressing Goal: Lower Body Dressing Description: Pt will complete LE dressing tasks with modified independence for improved ability to complete self-care activities. Outcome: Completed Problem: OT - Endurance Goal: Endurance Functional Mobilty Around Home Description: Pt will complete distance needed for limited community mobility. Outcome: Completed Problem: PT - Mobility Goal: Ambulation Description: Pt will ambulate 150 feet with least restrictive device with supervision to improve ability to navigate home environment. Outcome: Completed Goal: Stairs Description: Pt will ascend/descend 3 stairs with 1 railings with supervision with least restrictive device to improve ability to perform functional mobility necessary in recommended discharge environment. Outcome: Completed Problem: PT - Transfers Goal: Supine <-> Sit Description: Pt will perform bed mobility with flat bed & no rail with supervision in order to improve functional mobility and safety. Outcome: Completed Goal: Sit <-> Stand Description: Pt will perform sit to/from stand transfers with supervision with least restrictive device in order to improve functional mobility and safety. Outcome: Completed Problem: Pain, Acute (Adult) Goal: Identify Related Risk Factors and Signs and Symptoms Description: Related risk factors and signs and symptoms are identified upon initiation of Human Response Clinical Practice Guideline (CPG) Outcome: Completed Goal: Acceptable Pain Control/Comfort Level Description: Patient will demonstrate the desired outcomes by discharge/transition of care. Outcome: Completed Problem: OT - Transfers Goal: Transfers Logroll Description: Pt will properly utilize logroll technique transfer to EOB with modified independence,in order to follow precautions and improve participation in ADLs. Outcome: Completed * Plan of Care - Hector Suazo RN - 01/21/2023 5:07 PM EST Problem: Patient Care Overview Goal: Plan of Care Review Outcome: Ongoing Goal: Individualization & Mutuality Outcome: Ongoing Goal: Discharge Needs Assessment Outcome: Ongoing Goal: Interdisciplinary Rounds/Family Conf Outcome: Ongoing * Plan of Care - Thalia Acuna PT - 01/21/2023 10:06 AM EST Problem: PT - Mobility Goal: Ambulation Description: Pt will ambulate 150 feet with least restrictive device with supervision to improve ability to navigate home environment. Outcome: Met This Shift Note: Met this shift but need to assess for consistency at next session Goal: Stairs Description: Pt will ascend/descend 3 stairs with 1 railings with supervision with least restrictive device to improve ability to perform functional mobility necessary in recommended discharge environment. Outcome: Met This Shift Note: Met this shift but need to assess for consistency at next session Problem: PT - Transfers Goal: Supine <-> Sit Description: Pt will perform bed mobility with flat bed & no rail with supervision in order to improve functional mobility and safety. Outcome: Met This Shift Note: Met this shift but need to assess for consistency at next session Goal: Sit <-> Stand Description: Pt will perform sit to/from stand transfers with supervision with least restrictive device in order to improve functional mobility and safety. Outcome: Met This Shift Note: Met this shift but need to assess for consistency at next session Problem: PT - Transfers Goal: Other Description: Pt will recall 3/3 spinal precautions to promote healing after surgical intervention Outcome: Completed * Plan of Care - Linda Dennis OT - 01/21/2023 9:07 AM EST Problem: OT - Dressing Goal: Lower Body Dressing Description: Pt will complete LE dressing tasks with modified independence for improved ability to complete self-care activities. Outcome: Met This Shift Problem: OT - Endurance Goal: Endurance Functional Mobilty Around Home Description: Pt will complete distance needed for limited community mobility. Outcome: Met This Shift Problem: OT - Transfers Goal: Transfers Logroll Description: Pt will properly utilize logroll technique transfer to EOB with modified independence,in order to follow precautions and improve participation in ADLs. Outcome: Met This Shift Problem: OT - Endurance Goal: Endurance Functional Task Standing Description: Pt will engage in standing functional task for 15-20 minutes with modified independence to improve activity tolerance necessary for safe ADL completion at recommended discharge destination. Outcome: Adequate for Discharge * Nursing Notes - Meg Baron RN - 01/21/2023 4:21 AM EST On-call Ortho-Surgery Damien JHA Paged [phone]: [id number] [phone]: Hi can pt. have milk of mag ordered to aid in bowel movement? Still complaints of abd discomfort and constipation, miralax and dulcolax suppository unsuccessful, last BM 01/16. Thankyou! -DORCAS Weaver #[phone] * Plan of Care - Meg Baron RN - 01/20/2023 11:56 PM EST Problem: Patient Care Overview Goal: Plan of Care Review Outcome: Ongoing Goal: Individualization & Mutuality Outcome: Ongoing Goal: Discharge Needs Assessment Outcome: Ongoing Goal: Interdisciplinary Rounds/Family Conf Outcome: Ongoing Problem: Pain, Acute (Adult) Goal: Identify Related Risk Factors and Signs and Symptoms Description: Related risk factors and signs and symptoms are identified upon initiation of Human Response Clinical Practice Guideline (CPG) Outcome: Ongoing Goal: Acceptable Pain Control/Comfort Level Description: Patient will demonstrate the desired outcomes by discharge/transition of care. Outcome: Ongoing Intervention: Monitor/Manage Analgesia Flowsheets (Taken 01/20/20232344) Pain Management Interventions: unnecessary movement avoided relaxation positioning activity minimized declines intervention Bowel Intervention: adequate fluid intake promoted ambulation promoted diet adjusted privacy promoted Intervention: Mutually Develop/Implement Acute Pain Management Plan Flowsheets (Taken 01/20/20232344) Sensory Stimulation Regulation: care clustered lighting decreased quiet environment promoted Intervention: Support/Optimize Psychosocial Response to Acute Pain Flowsheets Taken 01/20/20232 Family/Support System Care: self-care encouraged support provided Trust Relationship/Rapport: care explained questions answered questions encouraged thoughts/feelings acknowledged reassurance provided emotional support provided Taken 01/19/2023 194 Supportive Measures: self-care encouraged relaxation techniques promoted * Plan of Care - Ruth Mahan - 01/20/2023 5:33 PM EST Problem: Patient Care Overview Goal: Plan of Care Review Outcome: Ongoing Goal: Individualization & Mutuality Outcome: Ongoing Goal: Discharge Needs Assessment Outcome: Ongoing Goal: Interdisciplinary Rounds/Family Conf Outcome: Ongoing Problem: Pain, Acute (Adult) Goal: Identify Related Risk Factors and Signs and Symptoms Description: Related risk factors and signs and symptoms are identified upon initiation of Human Response Clinical Practice Guideline (CPG) Outcome: Ongoing Goal: Acceptable Pain Control/Comfort Level Description: Patient will demonstrate the desired outcomes by discharge/transition of care. Outcome: Ongoing * Plan of Care - Eve Montelongo PT - 01/20/2023 8:45 AM EST Problem: PT - Mobility Goal: Ambulation Description: Pt will ambulate 150 feet with least restrictive device with supervision to improve ability to navigate home environment. Outcome: Ongoing Goal: Stairs Description: Pt will ascend/descend 3 stairs with 1 railings with supervision with least restrictive device to improve ability to perform functional mobility necessary in recommended discharge environment. Outcome: Ongoing Problem: PT - Transfers Goal: Sit <-> Stand Description: Pt will perform sit to/from stand transfers with supervision with least restrictive device in order to improve functional mobility and safety. Outcome: Ongoing Goal: Other Description: Pt will recall 3/3 spinal precautions to promote healing after surgical intervention Outcome: Ongoing * Plan of Care - Linda Dennis OT - 01/20/2023 7:41 AM EST Problem: OT - Dressing Goal: Lower Body Dressing Description: Pt will complete LE dressing tasks with modified independence for improved ability to complete self-care activities. Outcome: Ongoing Problem: OT - Endurance Goal: Endurance Functional Mobilty Around Home Description: Pt will complete distance needed for limited community mobility. Outcome: Ongoing Goal: Endurance Functional Task Standing Description: Pt will engage in standing functional task for 15-20 minutes with modified independence to improve activity tolerance necessary for safe ADL completion at recommended discharge destination. Outcome: Ongoing Problem: OT - Transfers Goal: Transfers Logroll Description: Pt will properly utilize logroll technique transfer to EOB with modified independence,in order to follow precautions and improve participation in ADLs. Outcome: Ongoing * Plan of Care - Meg Baron RN - 01/19/2023 11:06 PM EST Problem: Pain, Acute (Adult) Goal: Identify Related Risk Factors and Signs and Symptoms Description: Related risk factors and signs and symptoms are identified upon initiation of Human Response Clinical Practice Guideline (CPG) Outcome: Ongoing Goal: Acceptable Pain Control/Comfort Level Description: Patient will demonstrate the desired outcomes by discharge/transition of care. Outcome: Ongoing Intervention: Monitor/Manage Analgesia Flowsheets Taken 01/19/20232127 Pain Management Interventions: medication given, see MAR Taken 01/19/20231939 Bowel Intervention: adequate fluid intake promoted ambulation promoted diet adjusted privacy promoted Intervention: Mutually Develop/Implement Acute Pain Management Plan Flowsheets (Taken 01/19/20231939) Sensory Stimulation Regulation: care clustered lighting decreased quiet environment promoted Intervention: Support/Optimize Psychosocial Response to Acute Pain Flowsheets (Taken 01/19/20231939) Supportive Measures: self-care encouraged relaxation techniques promoted Diversional Activities: smartphone Family/Support System Care: self-care encouraged support provided Trust Relationship/Rapport: care explained thoughts/feelings acknowledged questions answered questions encouraged emotional support provided * Plan of Care - Alli Willard RN - 01/19/2023 7:40 PM EST Problem: Patient Care Overview Goal: Plan of Care Review Outcome: Ongoing Goal: Individualization & Mutuality Outcome: Ongoing Goal: Discharge Needs Assessment Outcome: Ongoing Goal: Interdisciplinary Rounds/Family Conf Outcome: Ongoing Problem: Pain, Acute (Adult) Goal: Identify Related Risk Factors and Signs and Symptoms Description: Related risk factors and signs and symptoms are identified upon initiation of Human Response Clinical Practice Guideline (CPG) Outcome: Ongoing Goal: Acceptable Pain Control/Comfort Level Description: Patient will demonstrate the desired outcomes by discharge/transition of care. Outcome: Ongoing * Plan of Care - Jessica Pierce PT - 01/19/2023 3:44 PM EST Problem: PT - Mobility Goal: Ambulation Description: Pt will ambulate 150 feet with least restrictive device with supervision to improve ability to navigate home environment. Outcome: Progressing Toward Goal Problem: PT - Transfers Goal: Supine <-> Sit Description: Pt will perform bed mobility with flat bed & no rail with supervision in order to improve functional mobility and safety. Outcome: Progressing Toward Goal Goal: Sit <-> Stand Description: Pt will perform sit to/from stand transfers with supervision with least restrictive device in order to improve functional mobility and safety. Outcome: Progressing Toward Goal * Plan of Care - Linda Dennis OT - 01/19/2023 8:11 AM EST Problem: OT - ADLs Goal: Toileting Description: Pt will complete toileting task including clothing management with modified independence for improved ability to safely complete self-care activities. Outcome: Ongoing Problem: OT - Endurance Goal: Endurance Functional Task Standing Description: Pt will engage in standing functional task for 15-20 minutes with modified independence to improve activity tolerance necessary for safe ADL completion at recommended discharge destination. Outcome: Ongoing Problem: OT - Transfers Goal: Transfers Logroll Description: Pt will properly utilize logroll technique transfer to EOB with modified independence,in order to follow precautions and improve participation in ADLs. Outcome: Ongoing * Nursing Notes - Meg Baron RN - 01/19/2023 5:21 AM EST On-call Ortho-Surgery MD Paged [phone]: MD Damien: [facility] [phone]: DOUG pt. has a double lumen femoral central line, can we have a communication orderfor OK to use line/orders to manage, please advise thanks! - DORCAS Weaver #[phone] * Plan of Care - Meg Baron RN - 01/19/2023 12:07 AM EST Problem: Patient Care Overview Goal: Plan of Care Review Outcome: Ongoing Goal: Individualization & Mutuality Outcome: Ongoing Goal: Discharge Needs Assessment Outcome: Ongoing Goal: Interdisciplinary Rounds/Family Conf Outcome: Ongoing Problem: Pain, Acute (Adult) Goal: Identify Related Risk Factors and Signs and Symptoms Description: Related risk factors and signs and symptoms are identified upon initiation of Human Response Clinical Practice Guideline (CPG) Outcome: Ongoing Goal: Acceptable Pain Control/Comfort Level Description: Patient will demonstrate the desired outcomes by discharge/transition of care. Outcome: Ongoing Intervention: Monitor/Manage Analgesia Flowsheets Taken 01/19/20236 Bowel Intervention: adequate fluid intake promoted Taken 01/18/2023 2340 Pain Management Interventions: medication given, see MAR Intervention: Mutually Develop/Implement Acute Pain Management Plan Flowsheets (Taken 01/19/20236) Sensory Stimulation Regulation: care clustered lighting decreased quiet environment promoted Intervention: Support/Optimize Psychosocial Response to Acute Pain Flowsheets Taken 01/19/20236 Supportive Measures: self-care encouraged Family/Support System Care: self-care encouraged Taken 01/18/20232037 Diversional Activities: television smartphone Trust Relationship/Rapport: care explained questions encouraged questions answered thoughts/feelings acknowledged * Plan of Care - Jessica Pierce PT - 01/18/2023 1:04 PM EST Problem: PT - Mobility Goal: Ambulation Description: Pt will ambulate 150 feet with least restrictive device with supervision to improve ability to navigate home environment. Outcome: Ongoing Goal: Stairs Description: Pt will ascend/descend 3 stairs with 1 railings with supervision with least restrictive device to improve ability to perform functional mobility necessary in recommended discharge environment. Outcome: Ongoing Problem: PT - Transfers Goal: Supine <-> Sit Description: Pt will perform bed mobility with flat bed & no rail with supervision in order to improve functional mobility and safety. Outcome: Ongoing Goal: Sit <-> Stand Description: Pt will perform sit to/from stand transfers with supervision with least restrictive device in order to improve functional mobility and safety. Outcome: Ongoing Goal: Other Description: Pt will recall 3/3 spinal precautions to promote healing after surgical intervention Outcome: Ongoing * Plan of Care - Linda Dennis OT - 01/18/2023 8:17 AM EST Problem: OT - Dressing Goal: Lower Body Dressing Description: Pt will complete LE dressing tasks with modified independence for improved ability to complete self-care activities. Outcome: Ongoing Problem: OT - ADLs Goal: Toileting Description: Pt will complete toileting task including clothing management with modified independence for improved ability to safely complete self-care activities. Outcome: Ongoing Problem: OT - Endurance Goal: Endurance Functional Mobilty Around Home Description: Pt will complete distance needed for limited community mobility. Outcome: Ongoing Goal: Endurance Functional Task Standing Description: Pt will engage in standing functional task for 15-20 minutes with modified independence to improve activity tolerance necessary for safe ADL completion at recommended discharge destination. Outcome: Ongoing Problem: OT - Transfers Goal: Transfers Logroll Description: Pt will properly utilize logroll technique transfer to EOB with modified independence,in order to follow precautions and improve participation in ADLs. 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 She tried nonoperative treatment without of her pain. She felt that her curve was getting worse. Had imaging done that showed kyphosis of nearly degrees. We had a thorough discussion patient regarding risks benefits and alternatives she wished to proceed with surgical understanding these. She gave consent to proceeding. Description of Procedure: Aniyah Hodgson was met preoperatively. Further questions were answered. She was then seen by Anesthesia Nursing taken back to the operating. Once OR, she was intubated without difficulty. Lines and leads were placed. She was then positioned prone a Tom table. Care was taken pad all bony prominences. Her spine was then prepped and draped the standard sterile fashion. Following 2nd time-out, incision was made from the upper thoracic spine to upper lumbar spine. Dissection was carried down to the level of fascia. Fascia was incised at midline. Muscle was then subperiosteally dissected off the spinous processes lamina. Transverse process was exposed from T2-L2. Care was taken not to violate T1-2 facet joints. Next, inferior articular processes removed from T2-3 joint to the L1-2 joint. Local was saved. Next, attention was turned to screw placement. Screws were placed in following manner T5-L2. A bur was used to create entry point, this was followed gearshift, followed by ball-tip probe, followed by tap,followed by ball-tip probe, followed by screw placement. This was done bilaterally. Next, O- arm wasbrought in to check screw placement. Stereotactic navigation was then used for the T2-4 screws. This was done in the following manner. A navigated bur was used, followed by a navigated tap, followed by ball-tip probe, followed by navigated screw placement. A confirmatory O arm spin was then obtained. Fluoroscopy was brought in. All screws were found to be position. Next, attention was turned to performing posterior column osteotomies. This was done from T4-5 to T9-10. Spinous process was removed followed by removal of ligamentum flavum at these levels. Superiorarticular process was bilaterally at these levels. Next, attention was turned to albina placement. Albina was measured, contoured and secured proximally. Compression was applied across proximal screws. Next, this was sequentially performed as we went down level by level. Were used bottom levels gently reducing the spine to the albina good compression was noted across the osteotomy sites. Fluoroscopy shots confirmed improvement in kyphosis. Next, set screws were final tightened. Next, all bony surfaces were decorticated. Combination of local bone and allograft was then used and placed over bleeding bony surfaces. Closure was then performed. Ethibond suture used to reinforce interspinous ligaments upper thoracicspine. Deep drain was placed. Fascia was closed with combination Vicryl Stratafix. Subcutaneous tissues 2-0 Stratafix. Subcuticular tissues 3-0 Stratafix. Skin was Dermabond Prineo. Sterile dressings. Drain was secured. Patient was then transferred back hospital bed, extubated, taken to PACU in stable condition. Wound was irrigated thoroughly throughout procedure. All sponge and needle counts were correct throughout the procedure. * Nursing Notes - Kristie Wan RN - 01/17/2023 6:24 PM EST On admission to [facility], From OR a dual RN initial assessment of skin condition was performed by Kristie Wan RN and Radha Ashby RN. Skin Assessment/Invervention: Skin not within defined limits. - Surgical incision to midline back with 1 hemovac drain c/d/i If Wound(s) Identified/LDA Added: No, LDA present Kristie Wan RN * Nursing Notes - Kristie Wan RN - 01/17/2023 6:24 PM EST MD Quezada paged the following: [facility] [address], T - No orders for oxycodone, could we get PRN orderto bridge her from BALL ENDER pump? Thanks! Kristie [phone] * Nursing Notes - Caty Salguero RN - 01/17/2023 6:02 PM EST Patient sufficiently recovered from anesthesia. Report called to admitting unit. PACU admission assessment remains unchanged, dressings intact. Pt transported on telemetry and pulse ox with RN at bedside. * Nursing Notes - Caty Salguero RN - 01/17/2023 5:25 PM EST Pt states, I should not be feeling anything. Pt educated on post op pain and expectations movingforward. Pt rests in between care in NAD. * Plan of Care - Gabriel Saeed MD - 01/17/2023 3:52 PM EST Assessment 22 y.o. female, Day of Surgery S/P T2-L2 PSF with Dr. Rankin on 01/17/23. Plan Activity: As tolerated Antibiotics: Ancef for 24 hours postoperatively or while drain is in place Blood: Hemoglobin, Glucose control with goal of <120 Brace: None Cultures: None Diet: Liquid diet and progress to regular diet Drain: Hemovac drain sewn in place, monitor output Dressing: Clean/dry, change POD2 DVT Prophylaxis: SCD's, Lovenox to start 24 hours postoperatively Exercise: IS 10x/hr while awake, PT for mobilization (w/ or w/o walker TID), (walking QID) Chaidez: Goal to remove POD1-2 Pain Regimen: Multimodal Xrays: AP/Lateral standing scoli films Dispo: Anticipate discharge home/SNF in next 3-5 days. Appreciate assistance in placement and PTrecs. Follow-up: Follow up with Dr. Rankin team 2 weeks from surgery for wound check Gabriel Saeed MD Orthopaedic Spine Fellow * Brief Op Note - Gabriel Saede MD - 01/17/2023 3:49 PM EST Aniyah Hodgson ([id number]) PRE OPERATIVE DIAGNOSIS Kyphosis of thoracic region, unspecified kyphosis type [M40.204] POST OPERATIVE DIAGNOSIS Post-Op Diagnosis Codes: * Kyphosis of thoracic region, unspecified kyphosis type [M40.204] PROCEDURE PERFORMED Procedure(s) (LRB): FUSION POSTERIOR THORACIC T2-L2 (Midline) FUSION POSTERIOR LUMBAR (Midline) FUSION POSTERIOR LUMBAR EACH ADDL INTERSPACE ADD-ON PX (Midline) INSERTION SPINAL INSTRUMENTATION POSTERIOR SEGMENTAL ADD-ON PX (IP ONLY) (Midline) OSTEOTOMY SPINE 3 COLUMNS POSTERIOR APPROACH 1 VERTEBRAL SEGMENT LUMBAR (Midline) ASSISTANCE STEREOTACTIC NAVIGATION SPINAL ADD-ON PX (Midline) PRIMARY CLOSURE Yes INTRAOPERATIVE FINDINGS No significant abnormalities SURGEON Surgeon(s) and Role: * Juan Rankin MD - Primary * KATHERYN Bolton - Assisting ANESTHESIOLOGIST Anesthesiologist: Link Witt MD SITE SPECIALIST: Eve Caban APRN-SITE SPECIALIST Neck Band Maker: JOSH Gonzalez SURGICAL STAFF Hydrodynamics Teacher: Emilia Young RN Relief Hydrodynamics Teacher: Dahlia Fraga RN Relief Scrub: Wiliam Voss Fellow: Gabriel Saeed MD Front Office Manager: Gonzalo Adame COMPLICATIONS None ESTIMATED BLOOD LOSS 1000 ml SPECIMENS No specimen sent * No specimens in log * Gabriel Saeed MD January 17, 2023 3:49 PM * Certification - Jared Venegas DO - 01/17/2023 7:05 AM EST I certify that this patient requires inpatient services at this time. I anticipate the expected length of stay will include at least two midnights. Inpatient services are due to the following medicalconcerns posterior spinal fusion. Plans for post hospitalization care will be discharge to home. [facility] of Present illness Narrative* Gabriel Gonzalez MD - 01/22/2023 10:13 AM EST Orthopaedic Spine Surgery Progress Note: Aniyah Hodgson is a 22 y.o. female who is 5 Days Post-Op from T2-L2 PSF with Dr. Rankin. Last 24 Hours She states she is doing better, having BM. No N/V. Eager to go home. Vitals Vitals: 01/22/23 0830 BP: 114/57 Pulse: 103 Resp: 14 Temp: 97.9 F (36.6 C) SpO2: 100% Physical Exam GEN: AOx3, resting in bed, NAD HEENT: NCAT, PERRLA, EOMI CV: normotensive LUNGS: non-labored breathing Spine Exam Incision: Clean and dry Neuro: Upper Extremity Strength: Right Left Deltoids C5 5/5 5/5 Biceps C6 5/5 5/5 Wrist Extensors 5/5 5/5 Triceps C7 5/5 5/5 Finger Flexors C8 5/5 5/5 First Dorsal Interossei 5/5 5/5 Lower Extremity Strength: Right Left Hip Flexors L2 5/5 5/5 Quadriceps L3 5/5 5/5 Anterior Tibialis L4 5/5 5/5 EHL L5 5/5 5/5 Hamstrings 5/5 5/5 Gastrocsoleus S1 5/5 5/5 Sensation to light touch in the upper and lower extremities is grossly intact. Laboratory Studies Lab Results Component Value Date WBC 6.83 01/20/2023 HGB 9.3 (L) 01/20/2023 HCT 27.2 (L) 01/20/2023 PLATELET 141 (L) 01/20/2023 MCV 89.5 01/20/2023 Lab Results Component Value Date SODIUM 138 01/20/2023 POTASSIUM 3.6 01/20/2023 CHLORIDE 105 01/20/2023 CO2 24 01/20/2023 BUN 3 (L) 01/20/2023 CREATSERUM 0.51 01/20/2023 GLUCOSE 117 (H) 01/20/2023 Lab Results Component Value Date INR 1.0 01/03/2023 PT 12.7 01/03/2023 Imaging/Cultures/Drains New Imaging: XR ABDOMEN 1 VIEW Final Result IMPRESSION: Mild gaseous distention of colon the region of the splenic flexure with gradual tapering distally. This is of doubtful clinical significance. SPINE SCOLIOSIS 2/3 VIEWS Final Result IMPRESSION: 1. Interval posterior fixation of the thoracolumbar spine spanning the T2-L2 levels resultant decreased thoracic kyphosis. Posterior fixation hardware appears intact. FLUORO > 1 HOUR OR XR FLUORO > 1 HOUR OR Drains: Removed Assessment Aniyah Hodgson is a 22 y.o. female who is 5 Days Post-Op S/P T2-L2 PSF Plan Activity: As tolerated Antibiotics: Ancef for 24 hours postoperatively or while drain is in place Blood: Hemoglobin, Glucose control with goal of <120, anemia from surgery. Will monitor with CBC. Hb 9.3 Brace: None Cultures: None Diet: Regular diet Drain: Removed Dressing: Clean/dry, changed POD2 now daily. DVT Prophylaxis: SCD's, Lovenox to start 24 hours postoperatively Exercise: IS 10x/hr while awake, PT for mobilization (w/ or w/o walker TID), (walking QID) Chaidez: Removed Pain Regimen: Multimodal Xrays: AP/Lateral standing scoli films Dispo: DC today Appreciate SW assistance in placement and PT recs. Follow-up: Follow up with Dr. Rankin team 2 weeks from surgery for wound check * Christin Hutchinson APRN-AMANDA - 01/21/2023 3:45 PM EST Rounded with Juan Rankin MD. Patient treatment plan discussed. Patient needs/questions addressed. RN present at bedside during rounds. Please administer PRN fleets enema. Anticipating discharge to home tomorrow pending post-op course, pain mgt, bowel movement / tolerating diet. TYLER Florian Orthopaedic Surgery Pager [phone] * TYLER Williamson - 01/21/2023 11:41 AM EST Aniyah Hodgson is a 22 y.o. female 4 Days Post-Op s/p T2-L2 PSF. Patient up in chair, NAD. Pt denies fever, SOB, CP, or new upper / lower extremity numbness / tingling. Reports N/V. Tolerating clear liquid diet; unable to tolerate regular diet. Positive flatus. Voiding spontaneously. Reports post- op surgical pain controlled with current regimen to an acceptable level. Constipation Abdominal XR - completed Encourage ambulation Suppository Enema if suppository ineffective Increased senna Cont Miralax Exam stable. Patient feels abdomen is firmer than normal for her, tenderness with palpation. Posterior spinal dressing with some shadowing where drain was removed today. Respirations unlabored. Treatment plan discussed. All needs / questions addressed. Appreciate hospital medicine consult forco-mgt. Planning to discharge home, today or tomorrow pending post-op course, pain mgt, bowel movement / tolerating diet. Vitals: 01/21/23 0814 BP: 121/73 Pulse: 118 Resp: 16 Temp: 98.2 F (36.8 C) SpO2: 96% Lab Results Component Value Date WBC 6.83 01/20/2023 HGB 9.3 (L) 01/20/2023 HCT 27.2 (L) 01/20/2023 PLATELET 141 (L) 01/20/2023 MCV 89.5 01/20/2023 Lab Results Component Value Date SODIUM 138 01/20/2023 POTASSIUM 3.6 01/20/2023 CHLORIDE 105 01/20/2023 CO2 24 01/20/2023 BUN 3 (L) 01/20/2023 CREATSERUM 0.51 01/20/2023 GLUCOSE 117 (H) 01/20/2023 Post-op education included but was not limited to: No bending, lifting (more than 5-10 lbs), or twisting. Opioid benefits and risks - including risk for addiction, respiratory depression, sedation, confusion, constipation. Constipation prevention. Donot drive while taking opioid medication. DVT prevention. Showering instructions. No tub baths, hottubs, or swimming until cleared in the office. Do not apply creams, lotions, or ointments to your incision until discussed with your surgeon. Do not take NSAIDs (Motrin, Advil, Ibuprofen, etc.) untilcleared by your surgeon, possibly at 10-12 weeks. Do not take tobacco / nicotine products. Patient offered free [employer] Narcan kit: Patient agreed to receiving narcan kit; RN notified and will ensure delivery before discharge. Complexity Hypocalcemia - Monitor Thrombocytopenia - Monitor TYLER Florian Orthopaedic Surgery Pager [phone] * Thalia Acuna, PT - 01/21/2023 10:06 AM EST Acute Physical Therapy Treatment Prior to Admission [facility] score(s): PRIOR LEVEL AM-PAC Mobility Raw Score: 24 PRIOR LEVEL AM-PAC Activity Raw Score: 24 Current AM-PAC score(s): CURRENT AM-PAC Mobility Raw Score: 21 Based on the above AM-PAC score(s) and PT clinical judgment, patient is a good candidate for discharge to Home (with family support) Barriers to discharge home: None Mobility equipment available at home: 2 wheeled walker ADL equipment available at home: shower chair Equipment needed for discharge: to be determined Current therapy frequency recommendation in acute: Therapy Frequency: 5 times a week Activity Recommendations for outside of rehab session: up ad joe Precautions and Weightbearing Status: Existing Precautions/Restrictions: fall, spinal No critical lines at this time Patient Safety Communication 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 Current brace/orthoses: (Custom TLSO for comfort, patient declines to wear for session) Subjective: Patient sitting in recliner upon arrival of PT. Patient agreeable to session and declines TLSO use for mobility. Pain: General Pain Documentation (Adult, OB, Peds) Presence of Pain: complains of pain/discomfort Pain Location: back, abdomen, shoulder, left DVPRS (Defense and Veterans Pain Rating Scale) DVPRS: Rest: 5- moderate pain (reports back is a 5/10; abdomen 8/10) DVPRS: Activity: 8- severe pain Objective/Observation: Vitals/Vitals Responses to Treatment: no adverse events noted during session O2 Device: room air Cognition Overall Cognitive Status: Within Functional Limits Arousal/Alertness: Appropriate responses to stimuli Orientation Level: Oriented X4 Extremity Assessments: See PT Evaluation flowsheet for Extremity Measurement updates. Skin and Edema: Balance: Sitting Balance Static Sitting-Level of Assistance: Independent Dynamic Sitting-Level of Assistance: Independent Standing Balance Static Standing-Level of Assistance: Independent Dynamic Standing-Level of Assistance: Supervision Standing-Balance Support: 2 wheeled walker, Gait belt Skilled Rationale: Verbal cues Standing Balance Skilled Intervention/Details: cues for upright posture and visual scanning Mobility Assessment/Intervention: Rolling/Turning Mobility [place] Level: Rolling/Turning: supervision Bed Features/Set-up: Rolling/Turning: Flat Skilled Rationale: Verbal cues, Sequencing Skilled Intervention/Details: Rolling/Turning: cues for safety and maintaining log roll without bedrail to simulate home environment, x1 rep Supine to Sit Mobility [place] Level: Supine->Sit: supervision Bed Features/Set-up: Supine->Sit: Flat Skilled Rationale: Verbal cues, Positioning, Sequencing Skilled Intervention/Details: Supine->Sit: cues for log rolling sequencing and UE use secondary to L scap pain and core engagement Sit to Supine Mobility [place] Level: Sit->Supine: minimum assist (75% patient effort) Bed Features/Set-up: Sit->Supine: Flat Skilled Rationale: Positioning, Sequencing, Hand placement Skilled Intervention/Details: Sit->Supine: assist at R LE to lift leg into bed with grand motherpresenta nd instrucitons provided for home carry over Transfer Assessment/Intervention: Sit to Stand Transfer [place] Level: Sit->Stand: supervision Assistive Device: Sit->Stand: gait belt, 2 wheeled walker Skilled Rationale: Positioning, Hand placement, Verbal cues Skilled Intervention/Details: Sit->Stand: x2 reps from various surfaces Stand to Sit Transfer [place] Level: Stand->Sit: supervision Assistive Device: Stand->Sit: gait belt, 2 wheeled walker Skilled Rationale: Positioning, Verbal cues, Hand placement Skilled Intervention/Details: Stand->Sit: verbal cues with bed mobility and no UE support for family assist on L UE at elbow to support with anticipated low bed at home Bed-Chair Transfer [place] Level: Bed<->Chair: modified independence Assistive Device: Bed<->Chair: gait belt, 2 wheeled walker Skilled Rationale: Verbal cues Gait/Functional Mobility Assessment/Intervention: Gait Assessment [place] Level: Gait: (sup-mod I) Assistive Device: Gait: gait belt, 2 wheeled walker (x1 rep wtih AD, x1 rep without AD) Ambulation Distance (Feet): 125 (2x) Gait Deviations Identified: decreased fanny, decreased gait speed Gait Skilled Rationale: verbal, increase step length, upright posture Skilled Intervention/Details - Gait: cues for increased step length and upright posture of neck to engage visual scanning Stairs Assessment/Intervention: Stairs Assessment [place] Level: Stair Negotiation: supervision Assistive Device: Stair Negotiation: gait belt, right rail (ascending) Number of stairs: 2 rounds of 4 steps with initial B UE assist and transitions to x1 UE support with no rest break Outcome Score(s): CURRENT [facility] Basic Mobility Inpatient Short Form Turning over in bed: 3 - A Little Assistance Sitting/standing from chair: 3 - A Little Assistance Moving from lying on back to sittin - A Little Assistance Moving to and from bed to chair: 4 - No Assistance Walk in hospital room: 4 - No Assistance Climbing 3-5 steps with a railin - No Assistance CURRENT [facility] Mobility Raw Score: 21 CURRENT [facility] Mobility Functional Limitation/Modifier: 28.97% Currently Impaired in Basic Mobility- CJ Interventions: Intervention 1 Intervention Name: Education for home equipment Details: Provided handout of tilet riser option based on toilet set up to obtain if toilets too lowfor independent transfers Assessment & Plan: Patient has made great progress with standing and ambulation tolerance. Patient progresses gait andtolerance to reciprocal stair training without a need for a rest break. She completes bed mobility without bedrail to simulate home environment with noted improvement in independence and ability to self engage with support for LE assist as needed. Patient safe to be up ad joe in room and ambulate with family and use of FWW if cleared by team. Anticipate home with home support at time of DC. Patient Instruction/Education this session: provided education on safe mobility and home equipment Plan for next session: progress gait tolerance and decrease assistive device needs Acute PT Goals Plan of Care by Thalia Acuna PT at 01/21/2023 10:06 AM Version 1 of 1 Problem: PT - Mobility Goal: Ambulation Description: Pt will ambulate 150 feet with least restrictive device with supervision to improve ability to navigate home environment. Outcome: Met This Shift Note: Met this shift but need to assess for consistency at next session Goal: Stairs Description: Pt will ascend/descend 3 stairs with 1 railings with supervision with least restrictive device to improve ability to perform functional mobility necessary in recommended discharge environment. Outcome: Met This Shift Note: Met this shift but need to assess for consistency at next session Problem: PT - Transfers Goal: Supine <-> Sit Description: Pt will perform bed mobility with flat bed & no rail with supervision in order to improve functional mobility and safety. Outcome: Met This Shift Note: Met this shift but need to assess for consistency at next session Goal: Sit <-> Stand Description: Pt will perform sit to/from stand transfers with supervision with least restrictive device in order to improve functional mobility and safety. Outcome: Met This Shift Note: Met this shift but need to assess for consistency at next session Problem: PT - Transfers Goal: Other Description: Pt will recall 3/3 spinal precautions to promote healing after surgical intervention Outcome: Completed PT treatment consisted of the following to progress towards the above goal(s): PT Evaluation and Treatment Time Therapeutic Activity Time Entry: 11 Gait Training Time Entry: 12 Treating Therapist: Thalia Acuna PT Additional Details: PT Co-Eval/Treatment Information Co-evaluation/co-treatment performed?: No simultaneous skilled care performed PPE used during patient interaction: facemask, gloves Patient location at end of session: chair Alarms on at end of session: none (grandmother present) Needs in reach. Time In: 1006 Time Out: 1029 Total Visit Time: 23 minutes Total Treatment Time (skilled, billable minutes): 23 minutes Upon discontinuation of Acute Care Physical Therapy Services or patient discharge from the hospitalthis note represents the current Physical Therapy Discharge Summary. * Linda Dennis OT - 01/21/2023 9:07 AM EST Acute Occupational Therapy Treatment Prior to Admission AM-PAC Score: PRIOR LEVEL AM-PAC Activity Raw Score: 24 PRIOR LEVEL AM-PAC Mobility Raw Score: 24 Current AM-PAC score(s): CURRENT AM-PAC Activity Raw Score: 22 Based on the above AM-PAC score(s), and OT clinical judgment, discharge destination recommendation is: (anticipate home with initial 24 hr supervision) Barriers to discharge home: none Mobility equipment available at home: 2 wheeled walker ADL equipment available at home: shower chair Equipment recommendations for discharge: to be determined Current therapy frequency recommendation(s) in acute: no therapy warranted Activity Recommendations for outside of rehab session: up ad joe Precautions and Weightbearing Status: OT Existing Precautions/Restrictions: spinal No critical lines at this time Patient Safety Communication 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 Current brace/orthoses: (none; custom TLSO for comfort) Subjective: Pt received seated up in chair upon arrival. Pt alert, pleasant and agreeable to session stating sure, it would be good to get up. Pain: General Pain Documentation (Adult, OB, Peds) Presence of Pain: complains of pain/discomfort Pain Location: back, abdomen DVPRS (Defense and Veterans Pain Rating Scale) DVPRS: Rest: 7- severe pain DVPRS: Activity: 8- severe pain Objective/Observation: Vitals/Vitals Responses to Treatment: No signs or symptoms of distress noted. O2 Device: room air Vision Screen Currently wearing corrective lenses: No Visual Impairments Observed?: No Speech Speech: no gross deficits noted Successful Methods (Communication Strategies): verbal speech Hearing Hearing: no gross deficits noted Cognition Overall Cognitive Status: Within Functional Limits Arousal/Alertness: Appropriate responses to stimuli Orientation Level: Oriented X4 Following Commands: Follows all commands and directions without difficulty Safety Judgment: Good awareness of safety precautions Awareness of Errors: Good awareness of errors made Deficits: Fully aware of deficits Attention Span: Appears intact Memory: Appears intact Problem Solving: Assistance required to identify errors made Cognition Comments: Pt alert, pleasant and demonstrates good insight into deficits. ADL Assessment/Intervention: Bathing Assistance: Minimal Bathing Location: seated in chair Bathing Deficit: Generalized weakness, Pain, Wash/Dry Back Bathing Skilled Rationale (Verbal/Tactile/Visual/Demonstration): Setup, Facilitate positioning Bathing Intervention/Details: Pt completed seated bathing task. OT provided education on figure 4 technique for improved ease of cleaning/drying LEs while adhering to spinal precautions. With setup, pt able to wash/dry arms, chest, stomach, groin, upper legs, and lower legs. Pt requests assist thisdate for washing/drying back. LE Dressing Assistance: Set up supervision LE Dressing Location: seated in chair LE Dressing Deficit: Activity tolerance LE Dressing Skilled Rationale (Verbal/Tactile/Visual/Demonstration): Facilitate positioning, Cues for increased safety LE Dressing Intervention/Details: OT re-educated pt on use of figure 4 technique for LB dressing toadhere to spinal precautions. Pt able to don underwear mod I with only one cue for technique when working up over hips. Extremity Assessments: See OT Evaluation flowsheet for Extremity Measurement updates. Balance: Sitting Balance Static Sitting-Level of Assistance: Independent Dynamic Sitting-Level of Assistance: Independent Skilled Rationale: Verbal cues Sitting Balance Skilled Intervention/Details: Pt able to sit unsupported during LB dressing with noLOB. Standing Balance Static Standing-Level of Assistance: Stand-by assist Dynamic Standing-Level of Assistance: Stand-by assist Standing-Balance Support: 2 wheeled walker Skilled Rationale: Verbal cues Standing Balance Skilled Intervention/Details: Pt able to transfer and ambulate with no LOB. Skin and Edema: Skin Integrity Skin Integrity Description: WFL Edema Edema: none noted Mobility Assessment/Intervention: Transfer Assessment/Intervention: Sit to Stand Transfer [place] Level: Sit->Stand: stand-by assist Assistive Device: Sit->Stand: 2 wheeled walker Skilled Rationale: Full extension to upright positioning/posture, Cues for increased safety, Technique of activity Skilled Intervention/Details: Sit->Stand: OT cued pt for full, upright posture and safe LE positioning while in standing. x1 from chair Stand to Sit Transfer [place] Level: Stand->Sit: stand-by assist Assistive Device: Stand->Sit: gait belt Skilled Rationale: Verbal cues, Controlled descent for sitting Skilled Intervention/Details: Stand->Sit: OT cued pt to reach back for armed chair and controlled descent to landing surface. x1 to chair Functional Mobility: Functional Mobility [place] Level: Functional Mobility/Gait: stand-by assist Assistive Device: Functional Mobility/Gait: 2 wheeled walker Functional Mobility Distance: Distance needed for common household mobility Skilled Intervention/Details - Functional Mobility/Gait: Pt with noted improvements in endurance this date. Outcome Score(s): CURRENT AM-PAC Daily Activity Inpatient Short Form Putting on/Taking Off Lower Body Clothin - A Little Assistance Bathin - A Little Assistance Toiletin - No Assistance Putting on/Taking Off Upper Body Clothin - No Assistance Groomin - No Assistance Eatin - No Assistance CURRENT AM-PAC Activity Raw Score: 22 CURRENT AM-PAC Activity Functional Limitation/Modifier: 25.80% Currently Impaired in Daily Activity- CJ Interventions: Intervention 1 Intervention Name: Adaptive Equipment Education Details: OT provided education to pt on use of long-handled sponge and drafting supervisor for improving independence with LB dressing while adhering to spinal precautions. OT provided visual demonstration of use of items and explained how they can help provided extra reach during post-surgical healing. Assessment & Plan: Pt doing very well and met all goals this date. Pt able to demonstrate modified independence with dressing and grooming. Pt able to ambulate with no LOB and supervision with use of 2ww. Pt has good support system at home and no further acute OT therapy services warranted. Patient Instruction/Education this session: LB dressing, AE equipment training Plan for next session: no further therapy warranted Acute OT Goals Plan of Care by Linda Dennis OT at 01/21/2023 9:07 AM Version 1 of 1 Problem: OT - Dressing Goal: Lower Body Dressing Description: Pt will complete LE dressing tasks with modified independence for improved ability to complete self-care activities. Outcome: Met This Shift Problem: OT - Endurance Goal: Endurance Functional Mobilty Around Home Description: Pt will complete distance needed for limited community mobility. Outcome: Met This Shift Problem: OT - Transfers Goal: Transfers Logroll Description: Pt will properly utilize logroll technique transfer to EOB with modified independence,in order to follow precautions and improve participation in ADLs. Outcome: Met This Shift Problem: OT - Endurance Goal: Endurance Functional Task Standing Description: Pt will engage in standing functional task for 15-20 minutes with modified independence to improve activity tolerance necessary for safe ADL completion at recommended discharge destination. Outcome: Adequate for Discharge OT treatment consisted of the following to work and progress towards the above goal(s): OT Evaluation and Treatment Time Self Care/Home Management (ADLs) Time Entry: 13 Therapeutic Activity Time Entry: 10 Treating Therapist: Linda Dennis OT Additional Details: OT Co-Eval/Treatment Information Co-evaluation/co-treatment performed?: No simultaneous skilled care performed PPE used during patient interaction: facemask, gloves Patient location at end of session: chair Alarms on at end of session: RN aware Needs in reach. Time In: 906 Time Out: 929 Total Visit Time: 23 minutes Total Treatment Time (skilled, billable minutes): 23 minutes Upon discontinuation of Acute Care Occupational Therapy Services or patient discharge from the hospital this note represents the current Occupational Therapy Discharge Summary. * Jared Venegas DO - 01/21/2023 7:01 AM EST Orthopaedic Spine Surgery Progress Note: Aniyah Hodgson is a 22 y.o. female who is 4 Days Post-Op from T2-L2 PSF with Dr. Rankin. Last 24 Hours She states she is doing better. She is having some constipation, but is passing gas. She also states she had some vomiting last evening. Abdominal xray did not show an obstruction. Her drain was removed. Vitals Vitals: 01/21/23 0320 BP: 129/68 Pulse: Resp: Temp: SpO2: Physical Exam GEN: AOx3, resting in bed, NAD HEENT: NCAT, PERRLA, EOMI CV: normotensive LUNGS: non-labored breathing Spine Exam Incision: Clean and dry Neuro: Upper Extremity Strength: Right Left Deltoids C5 5/5 5/5 Biceps C6 5/5 5/5 Wrist Extensors 5/5 5/5 Triceps C7 5/5 5/5 Finger Flexors C8 5/5 5/5 First Dorsal Interossei 5/5 5/5 Lower Extremity Strength: Right Left Hip Flexors L2 5/5 5/5 Quadriceps L3 5/5 5/5 Anterior Tibialis L4 5/5 5/5 EHL L5 5/5 5/5 Hamstrings 5/5 5/5 Gastrocsoleus S1 5/5 5/5 Sensation to light touch in the upper and lower extremities is grossly intact. Laboratory Studies Lab Results Component Value Date WBC 6.83 01/20/2023 HGB 9.3 (L) 01/20/2023 HCT 27.2 (L) 01/20/2023 PLATELET 141 (L) 01/20/2023 MCV 89.5 01/20/2023 Lab Results Component Value Date SODIUM 138 01/20/2023 POTASSIUM 3.6 01/20/2023 CHLORIDE 105 01/20/2023 CO2 24 01/20/2023 BUN 3 (L) 01/20/2023 CREATSERUM 0.51 01/20/2023 GLUCOSE 117 (H) 01/20/2023 Lab Results Component Value Date INR 1.0 01/03/2023 PT 12.7 01/03/2023 Imaging/Cultures/Drains New Imaging: Pending Drains: 70. 10 in last 16 hours. Will pull. Assessment Aniyah Hodgson is a 22 y.o. female who is 4 Days Post-Op S/P T2-L2 PSF Plan Activity: As tolerated Antibiotics: Ancef for 24 hours postoperatively or while drain is in place Blood: Hemoglobin, Glucose control with goal of <120, anemia from surgery. Will monitor with CBC. Hb 9.3 Brace: None Cultures: None Diet: Regular diet Drain: Removed Dressing: Clean/dry, changed POD2 DVT Prophylaxis: SCD's, Lovenox to start 24 hours postoperatively Exercise: IS 10x/hr while awake, PT for mobilization (w/ or w/o walker TID), (walking QID) Chaidez: Removed Pain Regimen: Multimodal Xrays: AP/Lateral standing scoli films Dispo: Anticipate discharge home 1-2 days. Appreciate SW assistance in placement and PT recs. Follow-up: Follow up with Dr. Rankin team 2 weeks from surgery for wound check Jared Venegas DO Orthopedic Surgery Resident * Daylin Avalos LMT - 01/20/2023 2:29 PM EST Attempted massage session, however, pt is sleeping. Will re-attempt if possible. Daylin Avalos LMT [facility] * Randee White APRN-AMANDA - 01/20/2023 12:10 PM EST POD # 1: T2-L2 PSF with Dr. Rankin Pt resting in NAD. Denies any CP, SOB, fever or chills. Voiding spontaneously, positive flatus. Tolerating diet. No N/V. Exam stable. Complexity Hypocalcemia - Monitor Thrombocytopenia - Monitor Any conditions listed below are present on admission unless otherwise specified. Kyphosis: surgical intervention Post-op ed and treatment plan discussed. Needs/questions also addressed with bedside RN and MD during am rounding. Randee White APRN, CNP Orthopaedic Surgery * Eve Montelongo, PT - 01/20/2023 8:45 AM EST Acute Physical Therapy Treatment Prior to Admission [facility] score(s): PRIOR LEVEL AM-PAC Mobility Raw Score: 24 PRIOR LEVEL AM-PAC Activity Raw Score: 24 Current AM-PAC score(s): CURRENT AM-PAC Mobility Raw Score: 18 Based on the above AM-PAC score(s) and PT clinical judgment, patient is a good candidate for discharge to Home (with family support) Barriers to discharge home: None Mobility equipment available at home: 2 wheeled walker ADL equipment available at home: shower chair Equipment needed for discharge: to be determined Current therapy frequency recommendation in acute: Therapy Frequency: 7 times a week Activity Recommendations for outside of rehab session: ambulate to bathroom 1 assist with 2WW Precautions and Weightbearing Status: Existing Precautions/Restrictions: fall, spinal (x1 hemovac) Patient Safety Communication 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 Current brace/orthoses: (TLSO OOB for comfort per MD) Subjective: Pleasant and agreeable, agreeable to ambulate and stair trial Pain: General Pain Documentation (Adult, OB, Peds) Presence of Pain: complains of pain/discomfort Pain Location: back DVPRS (Defense and Veterans Pain Rating Scale) DVPRS: Rest: 7- severe pain DVPRS: Activity: 7- severe pain Objective/Observation: Vitals/Vitals Responses to Treatment: stable O2 Device: room air Cognition Overall Cognitive Status: Within Functional Limits Arousal/Alertness: Appropriate responses to stimuli Orientation Level: Oriented X4 Following Commands: Follows all commands and directions without difficulty Cognition Comments: good recall of spinal precautions Extremity Assessments: See PT Evaluation flowsheet for Extremity Measurement updates. Skin and Edema: Balance: Sitting Balance Static Sitting-Level of Assistance: Independent Dynamic Sitting-Level of Assistance: Independent Skilled Rationale: Full extension to upright positioning/posture Sitting Balance Skilled Intervention/Details: no LOB at EOB or in ormed chair Standing Balance Static Standing-Level of Assistance: Stand-by assist Dynamic Standing-Level of Assistance: Stand-by assist Standing-Balance Support: 2 wheeled walker, Gait belt Skilled Rationale: Hand placement, Verbal cues, Full extension to upright positioning/posture Mobility Assessment/Intervention: Supine to Sit Mobility Skilled Intervention/Details: Supine->Sit: received in armed chair Sit to Supine Mobility [place] Level: Sit->Supine: minimum assist (75% patient effort) Bed Features/Set-up: Sit->Supine: Flat, Use of bed rail Skilled Rationale: Positioning, Sequencing, Hand placement, Technique of activity, Cues for increased safety, Maintain precautions Skilled Intervention/Details: Sit->Supine: assist for LEs Transfer Assessment/Intervention: Sit to Stand Transfer [place] Level: Sit->Stand: contact guard assist Assistive Device: Sit->Stand: gait belt, 2 wheeled walker, armed chair Skilled Rationale: Hand placement, Verbal cues, Positioning, Full extension to upright positioning/posture, Technique of activity, Cues for increased safety, Maintain precautions Skilled Intervention/Details: Sit->Stand: from EOB and armed chair Stand to Sit Transfer [place] Level: Stand->Sit: contact guard assist Assistive Device: Stand->Sit: gait belt, 2 wheeled walker, armed chair Skilled Rationale: Positioning, Sequencing, Hand placement, Verbal cues, Controlled descent for sitting, Technique of activity Skilled Intervention/Details: Stand->Sit: to armed chair and EOB Gait/Functional Mobility Assessment/Intervention: Gait Assessment [place] Level: Gait: contact guard assist Physical Assist: Gait: chair follow Assistive Device: Gait: gait belt, 2 wheeled walker Ambulation Distance (Feet): 300 (150x2) Gait Deviations Identified: decreased fanny, decreased gait speed, decreased step length Gait Skilled Rationale: verbal, upright posture, improve foot placement, proximity of assistive device Skilled Intervention/Details - Gait: slowed fanny with guarded posture Stairs Assessment/Intervention: Stairs Assessment [place] Level: Stair Negotiation: contact guard assist Assistive Device: Stair Negotiation: gait belt, right rail (ascending) Number of stairs: 8 (4+4 with seated rest break in between) Stairs Skilled Rationale: reciprocal pattern, general safety, verbal Skilled Intervention/Details - Stairs: no LOB, guarded Outcome Score(s): CURRENT AM-PAC Basic Mobility Inpatient Short Form Turning over in bed: 3 - A Little Assistance Sitting/standing from chair: 3 - A Little Assistance Moving from lying on back to sittin - A Little Assistance Moving to and from bed to chair: 3 - A Little Assistance Walk in hospital room: 3 - A Little Assistance Climbing 3-5 steps with a railin - A Little Assistance CURRENT [facility] Mobility Raw Score: 18 CURRENT [facility] Mobility Functional Limitation/Modifier: 46.58% Currently Impaired in Basic Mobility- CK Interventions: Intervention 1 Intervention Name: Pt performed therapeutic exercise to bilateral LE's AROM x 10 reps of hip flexion , long arc quads and ankle pumps to increase strength and endurance for improved transfers, balance, and gait performance. Cues for full ROM, technique, and to perform as HEP as able. Assessment & Plan: Good tolerance to PT with progression towards eastablished goals. Pt able to increase gait distanceand negotaited 4 steps x 2 trials with very minimal assist. Pt will cont to benefit from skilled PTthis admission to maximize functional indep. Patient Instruction/Education this session: goal of PT, progression of therapy, review of spinal precautions Plan for next session: gait tolerance/endurance Acute PT Goals Plan of Care by Eve Montelongo PT at 01/20/2023 8:45 AM Version 1 of 1 Problem: PT - Mobility Goal: Ambulation Description: Pt will ambulate 150 feet with least restrictive device with supervision to improve ability to navigate home environment. Outcome: Ongoing Goal: Stairs Description: Pt will ascend/descend 3 stairs with 1 railings with supervision with least restrictive device to improve ability to perform functional mobility necessary in recommended discharge environment. Outcome: Ongoing Problem: PT - Transfers Goal: Sit <-> Stand Description: Pt will perform sit to/from stand transfers with supervision with least restrictive device in order to improve functional mobility and safety. Outcome: Ongoing Goal: Other Description: Pt will recall 3/3 spinal precautions to promote healing after surgical intervention Outcome: Ongoing PT treatment consisted of the following to progress towards the above goal(s): PT Evaluation and Treatment Time Therapeutic Activity Time Entry: 10 Gait Training Time Entry: 22 Treating Therapist: Eve Montelongo PT I AM A FLOAT. PLEASE PAGE YOUR FLOORS PT REGARDING THIS PATIENT. Additional Details: PT Co-Eval/Treatment Information Co-evaluation/co-treatment performed?: No simultaneous skilled care performed PPE used during patient interaction: facemask, gloves Patient location at end of session: bed with head of bed elevated Alarms on at end of session: DORCAS aware Needs in reach. Time In: 812 Time Out: 844 Total Visit Time: 32 minutes Total Treatment Time (skilled, billable minutes): 32 minutes Upon discontinuation of Acute Care Physical Therapy Services or patient discharge from the hospitalthis note represents the current Physical Therapy Discharge Summary. * Jared Venegas, DO - 01/20/2023 7:47 AM EST Orthopaedic Spine Surgery Progress Note: Aniyah Hodgson is a 22 y.o. female who is 3 Days Post-Op from T2-L2 PSF with Dr. Rankin. Last 24 Hours She stages that she is doing much better today. Her pain is much better controlled. She denies any numbness or tingling. She is sitting in the chair. Vitals Vitals: 01/20/23 0636 BP: Pulse: 94 Resp: Temp: SpO2: Physical Exam GEN: AOx3, resting in bed, NAD HEENT: NCAT, PERRLA, EOMI CV: normotensive LUNGS: non-labored breathing Spine Exam Incision: Clean and dry Neuro: Upper Extremity Strength: Right Left Deltoids C5 5/5 5/5 Biceps C6 5/5 5/5 Wrist Extensors 5/5 5/5 Triceps C7 5/5 5/5 Finger Flexors C8 5/5 5/5 First Dorsal Interossei 5/5 5/5 Lower Extremity Strength: Right Left Hip Flexors L2 5/5 5/5 Quadriceps L3 5/5 5/5 Anterior Tibialis L4 5/5 5/5 EHL L5 5/5 5/5 Hamstrings 5/5 5/5 Gastrocsoleus S1 5/5 5/5 Sensation to light touch in the upper and lower extremities is grossly intact. Laboratory Studies Lab Results Component Value Date WBC 6.83 01/20/2023 HGB 9.3 (L) 01/20/2023 HCT 27.2 (L) 01/20/2023 PLATELET 125 (L) 01/20/2023 MCV 89.5 01/20/2023 Lab Results Component Value Date SODIUM 138 01/20/2023 POTASSIUM 3.6 01/20/2023 CHLORIDE 105 01/20/2023 CO2 24 01/20/2023 BUN 3 (L) 01/20/2023 CREATSERUM 0.51 01/20/2023 GLUCOSE 117 (H) 01/20/2023 Lab Results Component Value Date INR 1.0 01/03/2023 PT 12.7 01/03/2023 Imaging/Cultures/Drains New Imaging: Pending Drains: 85 Assessment Aniyah Hodgson is a 22 y.o. female who is 3 Days Post-Op S/P T2-L2 PSF Plan Activity: As tolerated Antibiotics: Ancef for 24 hours postoperatively or while drain is in place Blood: Hemoglobin, Glucose control with goal of <120, anemia from surgery. Will monitor with CBC. Hb 9.3 Brace: None Cultures: None Diet: Regular diet Drain: Hemovac drain sewn in place, monitor output Dressing: Clean/dry, changed POD2 DVT Prophylaxis: SCD's, Lovenox to start 24 hours postoperatively Exercise: IS 10x/hr while awake, PT for mobilization (w/ or w/o walker TID), (walking QID) Chaidez: Removed Pain Regimen: Multimodal Xrays: AP/Lateral standing scoli films Dispo: Anticipate discharge home 1-2 days. Appreciate SW assistance in placement and PT recs. Follow-up: Follow up with Dr. Rankin team 2 weeks from surgery for wound check Jared Venegas DO Orthopedic Surgery Resident * Linda Dennis OT - 01/20/2023 7:41 AM EST Acute Occupational Therapy Treatment Prior to Admission AM-PAC Score: PRIOR LEVEL AM-PAC Activity Raw Score: 24 PRIOR LEVEL AM-PAC Mobility Raw Score: 24 Current AM-PAC score(s): CURRENT AM-PAC Activity Raw Score: 20 Based on the above AM-PAC score(s), and OT clinical judgment, discharge destination recommendation is: (anticipate home with initial 24 hr supervision) Barriers to discharge home: patient needs assistance with ADLs, patient needs assistance with functional mobility Mobility equipment available at home: 2 wheeled walker ADL equipment available at home: shower chair Equipment recommendations for discharge: to be determined Current therapy frequency recommendation(s) in acute: 5 times a week Precautions and Weightbearing Status: OT Existing Precautions/Restrictions: spinal (x1 hemovac) Patient Safety Communication 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 Current brace/orthoses: (TLSO OOB for comfort per MD) Subjective: Pt received in high fowlers'position in bed upon arrival. Pt alert, pleasant and agreeable to session stating I'd like to get up and use the bathroom. Pain: General Pain Documentation (Adult, OB, Peds) Presence of Pain: complains of pain/discomfort Pain Location: back DVPRS (Defense and Veterans Pain Rating Scale) DVPRS: Rest: 6- moderate pain DVPRS: Activity: 7- severe pain Objective/Observation: Vitals/Vitals Responses to Treatment: No signs or symptoms of distress noted. O2 Device: room air Vision Screen Currently wearing corrective lenses: No Visual Impairments Observed?: No Speech Speech: no gross deficits noted Successful Methods (Communication Strategies): verbal speech Hearing Hearing: no gross deficits noted Cognition Overall Cognitive Status: Within Functional Limits Arousal/Alertness: Appropriate responses to stimuli Orientation Level: Oriented X4 Following Commands: Follows all commands and directions without difficulty Safety Judgment: Good awareness of safety precautions Awareness of Errors: Good awareness of errors made Deficits: Fully aware of deficits Attention Span: Appears intact Memory: Appears intact Problem Solving: Assistance required to identify errors made Cognition Comments: Pt alert and demonstrates good awareness of precautions. ADL Assessment/Intervention: ADLs: Eating Assistance: Grooming Assistance: Stand by Grooming Location: standing at sink Grooming Deficit: Activity tolerance Grooming Skilled Rationale (Verbal/Tactile/Visual/Demonstration): Facilitate positioning, Proper pacing, Cues for increased safety Grooming Intervention/Details: Pt completed oral hygiene and facial washing tasks while in standingat the sink. Pt able to ambulate to retrieve personal toothbrush and paste. OT cued pt for upward gaze and postured while in standing at the sink. OT also provided education to bring cup up to mouth rather than bend forward to rinse for adherence to spinal precautions. Pt with improved activity tolerance this date and able to stand at sink for 10 minutes for tasks with no seated or standing rest breaks. Bathing Assistance: UE Dressing Assistance: LE Dressing Assistance: Stand by LE Dressing Location: seated in chair LE Dressing Deficit: Activity tolerance LE Dressing Skilled Rationale (Verbal/Tactile/Visual/Demonstration): Facilitate positioning, Cues for increased safety, Setup LE Dressing Intervention/Details: OT educated pt on use of figure 4 technique for LB dressing to adhere to spinal precautions. OT provided visual demonstration for how to don underwear with use of this technique. Pt able to don underwear mod I with only one cue for technique when working up over hips. Toilet Assistance: Extremity Assessments: See OT Evaluation flowsheet for Extremity Measurement updates. Balance: Sitting Balance Static Sitting-Level of Assistance: Independent Dynamic Sitting-Level of Assistance: Independent Sitting Balance Skilled Intervention/Details: Pt able to sit unsupported during LB dressing with noovert LOB. Standing Balance Static Standing-Level of Assistance: Stand-by assist Dynamic Standing-Level of Assistance: Stand-by assist Standing-Balance Support: 2 wheeled walker Skilled Rationale: Verbal cues Standing Balance Skilled Intervention/Details: Pt able to transfer and ambulate with no overt LOB. Skin and Edema: Skin Integrity Skin Integrity Description: WFL Edema Edema: none noted Mobility Assessment/Intervention: Supine to Sit Mobility [place] Level: Supine->Sit: stand-by assist Bed Features/Set-up: Supine->Sit: Head of bed elevated, Use of bed rail Skilled Rationale: Verbal cues, Maintain precautions, Technique of activity Skilled Intervention/Details: Supine->Sit: OT cued pt for use of log roll technique. Pt demonstrates good carryover in technique from previouse sessions. Transfer Assessment/Intervention: Sit to Stand Transfer [place] Level: Sit->Stand: contact guard assist Assistive Device: Sit->Stand: 2 wheeled walker Skilled Rationale: Verbal cues, Cues for increased safety, Full extension to upright positioning/posture Skilled Intervention/Details: Sit->Stand: OT cued pt for full, upright positioning and safe LE positioning while in standing. Stand to Sit Transfer [place] Level: Stand->Sit: contact guard assist Assistive Device: Stand->Sit: 2 wheeled walker, armed chair Skilled Rationale: Verbal cues, Controlled descent for sitting Skilled Intervention/Details: Stand->Sit: OT cued pt to reach back for armed chair and controlled descent to landing surface. x1 to chair, x1 to toilet Toilet Transfer [place] Level: Toilet: contact guard assist Assistive Device: Toilet: 2 wheeled walker Skilled Rationale: Technique of activity, Controlled descent for sitting, Cues for increased safety Skilled Intervention/Details: Toilet: OT cued pt to reach for grab bars and safely position hips anteriorly to promote upright posture during toileting. Pt with good technique this date. Functional Mobility: Functional Mobility [place] Level: Functional Mobility/Gait: stand-by assist (CGA-progressing to SBA) Assistive Device: Functional Mobility/Gait: 2 wheeled walker Functional Mobility Distance: Distance needed for common household mobility Functional Mobility Deficits: Activity tolerance, Pain Functional Mobility Skilled Rationale: Upright gaze/neck extension, Facilitate positioning, Technique of activity Outcome Score(s): CURRENT [facility] Daily Activity Inpatient Short Form Putting on/Taking Off Lower Body Clothin - A Little Assistance Bathin - A Little Assistance Toiletin - A Little Assistance Putting on/Taking Off Upper Body Clothin - No Assistance Groomin - A Little Assistance Eatin - No Assistance CURRENT [facility] Activity Raw Score: 20 CURRENT [facility] Activity Functional Limitation/Modifier: 38.32% Currently Impaired in Daily Activity- CJ Assessment & Plan: Pt progressing very well towards goals and able to tolerate longer period of standing (~10 minutes)while completing a variety of tasks at the sink. Pt able to walk around room to retrieve self-care items with only nearby assistance for safety as well as utilize a modified dressing technique for adherence to spinal precautions. Pt's biggest barrier to discharge is pain management. Pt currently requires minimal assistance for basic ADLs. Pt to benefit from continued OT to increase use and understanding of adaptive equipment, increase strength, increase activity tolerance, and to maximize independence with ADLs and functional mobility. Patient Instruction/Education this session: standing tolerance for ADLs, LB dressing Plan for next session: bathing, continued LB dressing Acute OT Goals Plan of Care by Linda Dennis OT at 01/20/2023 7:41 AM Version 1 of 1 Problem: OT - Dressing Goal: Lower Body Dressing Description: Pt will complete LE dressing tasks with modified independence for improved ability to complete self-care activities. Outcome: Ongoing Problem: OT - Endurance Goal: Endurance Functional Mobilty Around Home Description: Pt will complete distance needed for limited community mobility. Outcome: Ongoing Goal: Endurance Functional Task Standing Description: Pt will engage in standing functional task for 15-20 minutes with modified independence to improve activity tolerance necessary for safe ADL completion at recommended discharge destination. Outcome: Ongoing Problem: OT - Transfers Goal: Transfers Logroll Description: Pt will properly utilize logroll technique transfer to EOB with modified independence,in order to follow precautions and improve participation in ADLs. Outcome: Ongoing OT treatment consisted of the following to work and progress towards the above goal(s): OT Evaluation and Treatment Time Self Care/Home Management (ADLs) Time Entry: Treating Therapist: Linda Dennis OT Additional Details: OT Co-Eval/Treatment Information Co-evaluation/co-treatment performed?: No simultaneous skilled care performed PPE used during patient interaction: facemask, gloves Patient location at end of session: chair Alarms on at end of session: RN aware Needs in reach. Time In: 740 Time Out: 807 Total Visit Time: 27 minutes Total Treatment Time (skilled, billable minutes): 27 minutes Upon discontinuation of Acute Care Occupational Therapy Services or patient discharge from the hospital this note represents the current Occupational Therapy Discharge Summary. * Jessica Pierce, PT - 01/19/2023 3:49 PM EST Acute Physical Therapy Treatment Prior to Admission AMPA score(s): PRIOR LEVEL AM-PAC Mobility Raw Score: 24 PRIOR LEVEL AM-PAC Activity Raw Score: 24 Current AM-PAC score(s): CURRENT AM-PAC Mobility Raw Score: 18 Based on the above AM-PAC score(s) and PT clinical judgment, patient is a good candidate for discharge to (Anticipate home) Mobility equipment available at home: 2 wheeled walker ADL equipment available at home: shower chair Equipment needed for discharge: to be determined Current therapy frequency recommendation in acute: Therapy Frequency: 7 times a week Activity Recommendations for outside of rehab session: ambulate to bathroom 1 assist with 2WW Precautions and Weightbearing Status: Existing Precautions/Restrictions: fall, spinal (x1 hemovac) Patient Safety Communication 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, 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 Current brace/orthoses: (TLSO OOB for comfort per MD) Subjective: Pt agreeable to therapy, reports she is really hurting from TLSO fitting Pain: General Pain Documentation (Adult, OB, Peds) Presence of Pain: complains of pain/discomfort Pain Location: back DVPRS (Defense and Veterans Pain Rating Scale) DVPRS: Rest: 9- severe pain DVPRS: Activity: 9- severe pain Objective/Observation: Vitals/Vitals Responses to Treatment: VSS Cognition Overall Cognitive Status: Within Functional Limits Arousal/Alertness: Appropriate responses to stimuli Orientation Level: Oriented X4 Following Commands: Follows all commands and directions without difficulty Safety Judgment: Good awareness of safety precautions Extremity Assessments: See PT Evaluation flowsheet for Extremity Measurement updates. Skin and Edema: Balance: Sitting Balance Static Sitting-Level of Assistance: Supervision Dynamic Sitting-Level of Assistance: Standby Skilled Rationale: Verbal cues, Hand placement, Sequencing Sitting Balance Skilled Intervention/Details: no overt LOB Standing Balance Static Standing-Level of Assistance: Stand-by assist Dynamic Standing-Level of Assistance: Contact guard Standing-Balance Support: 2 wheeled walker Skilled Rationale: Verbal cues, Hand placement, Sequencing, Positioning Standing Balance Skilled Intervention/Details: cues for upright gaze Mobility Assessment/Intervention: Supine to Sit Mobility [place] Level: Supine->Sit: minimum assist (75% patient effort) Bed Features/Set-up: Supine->Sit: Head of bed elevated, Use of bed rail Skilled Rationale: Verbal cues, Hand placement, Sequencing Skilled Intervention/Details: Supine->Sit: good completion of log roll, assist to raise trunk Sit to Supine Mobility [place] Level: Sit->Supine: minimum assist (75% patient effort) Bed Features/Set-up: Sit->Supine: Head of bed elevated Skilled Rationale: Verbal cues, Hand placement, Sequencing Skilled Intervention/Details: Sit->Supine: assist for LEs Transfer Assessment/Intervention: Sit to Stand Transfer [place] Level: Sit->Stand: minimum assist (75% patient effort) Assistive Device: Sit->Stand: 2 wheeled walker Skilled Rationale: Verbal cues, Hand placement, Sequencing Skilled Intervention/Details: Sit->Stand: x1 from EOB, x1 from BSC Gait/Functional Mobility Assessment/Intervention: Gait Assessment [place] Level: Gait: contact guard assist Assistive Device: Gait: 2 wheeled walker Ambulation Distance (Feet): (10' x2) Gait Deviations Identified: decreased fanny, decreased gait speed, decreased step length, flexed posture Gait Skilled Rationale: verbal, upright posture, improve foot placement Skilled Intervention/Details - Gait: cues for upright gaze/mgmt of 2WW, no LOB Stairs Assessment/Intervention: Outcome Score(s): CURRENT AM-PAC Basic Mobility Inpatient Short Form Turning over in bed: 3 - A Little Assistance Sitting/standing from chair: 3 - A Little Assistance Moving from lying on back to sittin - A Little Assistance Moving to and from bed to chair: 3 - A Little Assistance Walk in hospital room: 3 - A Little Assistance Climbing 3-5 steps with a railin - A Little Assistance CURRENT AM-[facility] Mobility Raw Score: 18 CURRENT -[facility] Mobility Functional Limitation/Modifier: 46.58% Currently Impaired in Basic Mobility- CK Interventions: Discussion regarding bracing with pt/pt's grandmother, clarified with [employer]/MD on wear schedule who stated brace is for comfort. Education on benefits of bracing, pt declines to wear with ambulation to/from restroom, reports she would like to try for further ambulation tomorrow. Assessment & Plan: Pt tolerated session fairly, limited by pain but able to ambulate to bathroom with CGA Patient Instruction/Education this session: goals of therapy, TLSO Plan for next session: gait, trial stairs, TLSO ed? Acute PT Goals Plan of Care by Jessica Pierce PT at 01/19/2023 3:44 PM Version 1 of 1 Problem: PT - Mobility Goal: Ambulation Description: Pt will ambulate 150 feet with least restrictive device with supervision to improve ability to navigate home environment. Outcome: Progressing Toward Goal Problem: PT - Transfers Goal: Supine <-> Sit Description: Pt will perform bed mobility with flat bed & no rail with supervision in order to improve functional mobility and safety. Outcome: Progressing Toward Goal Goal: Sit <-> Stand Description: Pt will perform sit to/from stand transfers with supervision with least restrictive device in order to improve functional mobility and safety. Outcome: Progressing Toward Goal PT treatment consisted of the following to progress towards the above goal(s): PT Evaluation and Treatment Time Therapeutic Activity Time Entry: 16 Gait Training Time Entry: 8 Treating Therapist: Jessica Pierce PT Additional Details: PT Co-Eval/Treatment Information Co-evaluation/co-treatment performed?: No simultaneous skilled care performed PPE used during patient interaction: facemask, gloves Patient location at end of session: bed with head of bed elevated Alarms on at end of session: RN aware Needs in reach. Time In: 1456 Time Out: 1520 Total Visit Time: 24 minutes Total Treatment Time (skilled, billable minutes): 24 minutes Upon discontinuation of Acute Care Physical Therapy Services or patient discharge from the hospitalthis note represents the current Physical Therapy Discharge Summary. * Jessica Pierce PT - 01/19/2023 10:09 AM EST Physical Therapy Attempt Note 01/19/2023 PT Therapy Completed: Attempted Attempted Reason: Other (see comments) (awaiting arrival of now ordered TLSO prior to OOB activity) Jessica Pierce PT Time In: 1008 Time Out: 1008 Total Visit Time: 0 minutes Total Treatment Time (skilled, billable minutes): 0 minutes * Linda Dennis OT - 01/19/2023 8:11 AM EST Acute Occupational Therapy Treatment Prior to Admission AM-PAC Score: PRIOR LEVEL AM-PAC Activity Raw Score: 24 PRIOR LEVEL AM-PAC Mobility Raw Score: 24 Current AM-PAC score(s): CURRENT AM-PAC Activity Raw Score: 17 Based on the above AM-PAC score(s), and OT clinical judgment, discharge destination recommendation is: (anticipate home with initial 24 hr supervision) Barriers to discharge home: needs assistance with ADLs, needs assistance with functional mobility Mobility equipment available at home: 2 wheeled walker ADL equipment available at home: shower chair Equipment recommendations for discharge: to be determined Current therapy frequency recommendation(s) in acute: 5 times a week Activity Recommendations for outside of rehab session: up with 1 assist Precautions and Weightbearing Status: (x1 hemovac drain) Patient Safety Communication 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 Current brace/orthoses: (none) Subjective: Pt received in supine upon arrival. Pt drowsy but easily awakens to name call. Pt reports high painlevels but agreeable to session stating I think I need to use the bathroom. Pain: General Pain Documentation (Adult, OB, Peds) Presence of Pain: complains of pain/discomfort Pain Location: back DVPRS (Defense and Veterans Pain Rating Scale) DVPRS: Rest: 7- severe pain DVPRS: Activity: 7- severe pain Objective/Observation: Vitals/Vitals Responses to Treatment: Upon sitting up in chair, pt reports nausea/intermittent dizziness. OT encouraged pt to pump ankles to encourage blood perfusion throughout body. Pt's BP was 103/54 (71). With rest, pt notes symptoms improve. No other signs or symptoms of distress noted. O2 Device: room air Vision Screen Currently wearing corrective lenses: No Visual Impairments Observed?: No Speech Speech: no gross deficits noted Successful Methods (Communication Strategies): verbal speech Hearing Hearing: no gross deficits noted Cognition Overall Cognitive Status: Within Functional Limits Arousal/Alertness: Appropriate responses to stimuli Orientation Level: Oriented X4 Following Commands: Follows all commands and directions without difficulty Safety Judgment: Good awareness of safety precautions Awareness of Errors: Good awareness of errors made Deficits: Fully aware of deficits Attention Span: Appears intact Memory: Appears intact Problem Solving: Assistance required to generate solutions Cognition Comments: Pt alert and demonstrates good insight into deficits. Pt able to recall 2/3 spinal precautions with no additional cueing. Cues provided for reminders to not lift above 5-10lbs. ADL Assessment/Intervention: ADLs: Eating Assistance: Grooming Assistance: Minimal Grooming Location: seated in chair Grooming Deficit: Activity tolerance, Generalized weakness, Pain, Retrieval of items, Increased time to complete Grooming Skilled Rationale (Verbal/Tactile/Visual/Demonstration): Facilitate positioning, Proper pacing, Cues for increased safety Grooming Intervention/Details: Pt completed hair washing and grooming while seated in the chair. OTcued pt on use of bilateral UEs to preserve ROM despite tightness. Cues also provided for thoroughness with use of shampoo cap to promote active finger ROM to address stiffness. Min A provided this date for thoroughness with shower cap and detangling hair. Toilet Assistance: Moderate Toileting Location: bedside commode Toileting Deficit: Increased time to complete, Activity tolerance, Generalized weakness, Perineal hygiene Toilet Skilled Rationale (Verbal/Tactile/Visual/Demonstration): Technique of activity, Cues for increased safety, Facilitate positioning Toileting Intervention/Details: OT cued pt for anterior hip shifting while on BSC for safe positioning due to noted posterior lean. Pt able to manage clothing prior to and after toileting but requires assist for perineal hygiene. Pt able to stand briefly ~20-30 seconds during pericare before requesting to sit down. Extremity Assessments: See OT Evaluation flowsheet for Extremity Measurement updates. Balance: Sitting Balance Static Sitting-Level of Assistance: Standby Dynamic Sitting-Level of Assistance: Contact guard Skilled Rationale: Verbal cues Sitting Balance Skilled Intervention/Details: Pt able to sit unsupported prior to transfer with no overt LOB. Standing Balance Static Standing-Level of Assistance: Minimum assistance Dynamic Standing-Level of Assistance: Minimum assistance Standing-Balance Support: Gait belt Skilled Rationale: Verbal cues Standing Balance Skilled Intervention/Details: Pt able to take a few steps to chair & BSC with no overt LOB. Skin and Edema: Skin Integrity Skin Integrity Description: WFL Edema Edema: none noted Mobility Assessment/Intervention: Supine to Sit Mobility [place] Level: Supine->Sit: moderate assist (50% patient effort) Bed Features/Set-up: Supine->Sit: Head of bed elevated, Use of bed rail Skilled Rationale: Verbal cues, Hand placement, Sequencing, Maintain precautions Skilled Intervention/Details: Supine->Sit: OT cued pt for log roll technique for spinal protection. Assist provided at trunk for comfort and safety due to high levels of L shoulder pain. Transfer Assessment/Intervention: Sit to Stand Transfer [place] Level: Sit->Stand: minimum assist (75% patient effort) Assistive Device: Sit->Stand: gait belt Skilled Rationale: Verbal cues, Cues for increased safety Skilled Intervention/Details: Sit->Stand: OT cued pt for full, upright posture and safe LE positioning while in standing. x1 from EOB, x1 from C Stand to Sit Transfer [place] Level: Stand->Sit: minimum assist (75% patient effort) Assistive Device: Stand->Sit: armed chair Skilled Rationale: Verbal cues, Controlled descent for sitting, Technique of activity Skilled Intervention/Details: Stand->Sit: OT cued pt to reach back for armed chair and controlled descent to landing surface. x1 from EOB, x1 from [facility] Toilet Transfer [place] Level: Toilet: minimum assist (75% patient effort) Assistive Device: Toilet: gait belt Skilled Rationale: Technique of activity, Verbal cues, Controlled descent for sitting, Cues for technique and pacing for therapeutic exercises Skilled Intervention/Details: Toilet: OT cued pt to reach for C arms and safely position hips anteriorly to promote upright posture during toileting. Functional Mobility: Functional Mobility [place] Level: Functional Mobility/Gait: minimum assist (75% patient effort) Assistive Device: Functional Mobility/Gait: gait belt Functional Mobility Distance: Distance needed to access BSC/chair Functional Mobility Deficits: Activity tolerance, Pain, Attention Functional Mobility Skilled Rationale: Cues for increased safety, Technique of activity, Verbal cues Outcome Score(s): CURRENT AM-PAC Daily Activity Inpatient Short Form Putting on/Taking Off Lower Body Clothin - A Lot of Assistance Bathin - A Lot of Assistance Toiletin - A Lot of Assistance Putting on/Taking Off Upper Body Clothin - No Assistance Groomin - A Little Assistance Eatin - No Assistance CURRENT AM-PAC Activity Raw Score: 17 CURRENT AM-PAC Activity Functional Limitation/Modifier: 50.11% Currently Impaired in Daily Activity- CK Interventions: Intervention 1 Intervention Name: Spinal Precautions Details: Pt provided education on spinal precautions (no bending, lifting above 5-10lbs, and twisting) through log-rolling technique for bed mobility and general OOB activity recommendations. Information was left on pt board to aid in later recall and solidifying of information. Assessment & Plan: Pt making good progress towards goals with ability to transfer to commode and take a few steps to the chair for seated ADLs. Pt's biggest barriers are pain management and reduced activity tolerance. Pt was able to follow all cues with 100 % command follow and moderate verbal cueing for optimal positioning during transfers and functional activity. Pt currently requires minimal to moderate assistance for basic ADLs. Pt to benefit from continued OT to increase use and understanding of adaptive equipment, increase strength, increase activity tolerance, and to maximize independence with ADLs and functional mobility. Patient Instruction/Education this session: toileting, endurance for ADLs Plan for next session: standing tolerance for ADLs, LB dressing Acute OT Goals Plan of Care by Linda Dennis OT at 01/19/2023 8:11 AM Version 1 of 1 Problem: OT - ADLs Goal: Toileting Description: Pt will complete toileting task including clothing management with modified independence for improved ability to safely complete self-care activities. Outcome: Ongoing Problem: OT - Endurance Goal: Endurance Functional Task Standing Description: Pt will engage in standing functional task for 15-20 minutes with modified independence to improve activity tolerance necessary for safe ADL completion at recommended discharge destination. Outcome: Ongoing Problem: OT - Transfers Goal: Transfers Logroll Description: Pt will properly utilize logroll technique transfer to EOB with modified independence,in order to follow precautions and improve participation in ADLs. Outcome: Ongoing OT treatment consisted of the following to work and progress towards the above goal(s): OT Evaluation and Treatment Time Self Care/Home Management (ADLs) Time Entry: 17 Therapeutic Activity Time Entry: 10 Treating Therapist: Linda Dennis OT Additional Details: OT Co-Eval/Treatment Information Co-evaluation/co-treatment performed?: No simultaneous skilled care performed PPE used during patient interaction: facemask, gloves Patient location at end of session: chair Alarms on at end of session: RN aware Needs in reach. Time In: 810 Time Out: 837 Total Visit Time: 27 minutes Total Treatment Time (skilled, billable minutes): 27 minutes Upon discontinuation of Acute Care Occupational Therapy Services or patient discharge from the hospital this note represents the current Occupational Therapy Discharge Summary. * TYLER Williamson - 01/19/2023 7:34 AM EST Rounded with Juan Rankin MD. Patient treatment plan discussed. Patient needs/questions addressed. RN present at bedside during rounds. TYLER Florian Orthopaedic Surgery Pager [phone] * Jared Venegas DO - 01/19/2023 7:08 AM EST Orthopaedic Spine Surgery Progress Note: Aniyah Hodgson is a 22 y.o. female who is 2 Days Post-Op from T2-L2 PSF with Dr. Rankin. Last 24 Hours She states that she is doing well. She is having some left shoulder pain. She is having some of herpreoperative numbness and tingling. She states she has been up to urinate. Vitals Vitals: 01/19/23 0500 BP: 113/68 Pulse: 100 Resp: 16 Temp: 98.2 F (36.8 C) SpO2: 98% Physical Exam GEN: AOx3, resting in bed, NAD HEENT: NCAT, PERRLA, EOMI CV: normotensive LUNGS: non-labored breathing Spine Exam Incision: Clean and dry Neuro: Upper Extremity Strength: Right Left Deltoids C5 5/5 5/5 Biceps C6 5/5 5/5 Wrist Extensors 5/5 5/5 Triceps C7 5/5 5/5 Finger Flexors C8 5/5 5/5 First Dorsal Interossei 5/5 5/5 Lower Extremity Strength: Right Left Hip Flexors L2 5/5 5/5 Quadriceps L3 5/5 5/5 Anterior Tibialis L4 5/5 5/5 EHL L5 5/5 5/5 Hamstrings 5/5 5/5 Gastrocsoleus S1 5/5 5/5 Sensation to light touch in the upper and lower extremities is grossly intact. Laboratory Studies Lab Results Component Value Date WBC 7.29 01/18/2023 HGB 9.6 (L) 01/18/2023 HCT 28.3 (L) 01/18/2023 PLATELET 103 (L) 01/18/2023 MCV 88.7 01/18/2023 Lab Results Component Value Date SODIUM 137 01/18/2023 POTASSIUM 3.5 01/18/2023 CHLORIDE 103 01/18/2023 CO2 26 01/18/2023 BUN 4 (L) 01/18/2023 CREATSERUM 0.63 01/18/2023 GLUCOSE 113 (H) 01/18/2023 Lab Results Component Value Date INR 1.0 01/03/2023 PT 12.7 01/03/2023 Imaging/Cultures/Drains New Imaging: Pending Drains: 560 Assessment Aniyah Hodgson is a 22 y.o. female who is 2 Days Post-Op S/P T2-L2 PSF Plan Activity: As tolerated Antibiotics: Ancef for 24 hours postoperatively or while drain is in place Blood: Hemoglobin, Glucose control with goal of <120, anemia from surgery. Will monitor with CBC Brace: None Cultures: None Diet: Regular diet Drain: Hemovac drain sewn in place, monitor output Dressing: Clean/dry, changed POD2 DVT Prophylaxis: SCD's, Lovenox to start 24 hours postoperatively Exercise: IS 10x/hr while awake, PT for mobilization (w/ or w/o walker TID), (walking QID) Chaidez: Removed Pain Regimen: Multimodal Xrays: AP/Lateral standing scoli films Dispo: Anticipate discharge home/SNF in next 3-5 days. Appreciate SW assistance in placement and PTrecs. Follow-up: Follow up with Dr. Rankin team 2 weeks from surgery for wound check Jared Venegas DO Orthopedic Surgery Resident * RUEL Pinto - 01/18/2023 3:08 PM EST Reason for Consult: Advanced Directives Consulted By: unit SW Assessment SW met with patient at bedside to review health care power of securities attorney (HCPOA) information. Patient's Grandmother, Didi Hodgson & pt's aunt also present. SW discussed Legal Next Of Kin. SW discussed that by designating a HCPOA, this allows for patient to name a person to act on their behalf to make health care decisions if patient was unable to make the decision themselves. SW explained that designating a HCPOA is only for health care decisions and not financial power of securities attorney. Discussed [place] in the [place]. Patient is not . Both pt's parents are living (pt's mother, Joe Keyes). Patient chose not to share her father's name at this time. Patient has no adult children. Discussed that pt's parents would be pt's LNO[place] at this time. Patient voices difficulty with having her eyes remaining open currently which hinders her reading the HCPOA paperwork. Additionally, patient has received pain medications today. SW advised HCPOA doesnot have to be completed while inpatient at [facility] and can be completed outside of [facility] as well either by a public notary or witnessed by two individuals not related to patient. Discussed that SW is available to complete HCPOA per patient request once patient better able to participate. Patient expressed an understanding. Action Plan SW provided Advanced Directive paperwork to patient. SW available to assist patient with completing HCPOA when ready. Mel [facility] Please note that I am a float SW and may not be covering the same unit each day. Please reach out to the floor/unit SW for additional needs/concerns. * Jessica Pierce, PT - 01/18/2023 3:03 PM EST Acute Physical Therapy Evaluation Prior to Admission [facility] score(s): PRIOR LEVEL AM-PAC Mobility Raw Score: 24 Current AM-PAC score(s): CURRENT AM-PAC Mobility Raw Score: 12 Based on the above AM-PAC score(s) and PT clinical judgment, patient is a good candidate for discharge to (Anticipate home) Mobility equipment available at home: 2 wheeled walker ADL equipment available at home: shower chair Equipment needed for discharge: to be determined Current therapy frequency recommendation in acute: Therapy Frequency: 7 times a week Activity Recommendations for outside of rehab session: up with 1 assist Precautions and Weightbearing Status: Existing Precautions/Restrictions: fall, spinal Urinary catheter (drain x1) Patient Safety Communication 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 Subjective: Pt agreeable to therapy, reports that when she moves there is stabbing pain of her L shoulder blade Pain: General Pain Documentation (Adult, OB, Peds) Presence of Pain: complains of pain/discomfort Pain Location: back DVPRS (Defense and Veterans Pain Rating Scale) DVPRS: Rest: 7- severe pain DVPRS: Activity: 8- severe pain Home Setting Residence: House Lives With: (grandmother, 3 yo son) First floor setup: bedroom, walk-in shower Second floor setup: (does not need to access) Number of stairs to enter home: 3 Stair Railings at Home: entry - with rail Mobility Equipment Available: 2 wheeled walker ADL Equipment Available: shower chair Home Environment Details: reports family can help PRN Previous Level of Function Prior level ADL Overview: Independent with all ADLs Bed Mobility/Transfers: independent Ambulation Skills: independent Assistive Device: none used Level of Ambulation: community Prior Level of Function Details: + driving previously, 1 recent fall (Accidental) Objective/Observation: Vitals/Vitals Responses to Treatment: VSS Cognition Overall Cognitive Status: Within Functional Limits Following Commands: Follows all commands and directions without difficulty Safety Judgment: Good awareness of safety precautions Vision Screen Currently wearing corrective lenses: No Speech Speech: no gross deficits noted Hearing Hearing: no gross deficits noted Extremity Assessments: RLE Assessment RLE Assessment: Within Functional Limits LLE Assessment LLE Assessment: Within Functional Limits Sensation Overall Sensation: Impaired Sensation Comments: N/T of anni hands Mobility Assessment: Supine to Sit Mobility [place] Level: Supine->Sit: maximum assist (25% patient effort) Bed Features/Set-up: Supine->Sit: Head of bed elevated Skilled Rationale: Verbal cues, Hand placement, Sequencing Skilled Intervention/Details: Supine->Sit: cues for log roll, extra time to complete, assist to raise trunk d/t severe L scap pain Sit to Supine Mobility [place] Level: Sit->Supine: maximum assist (25% patient effort) Bed Features/Set-up: Sit->Supine: Head of bed elevated Skilled Rationale: Hand placement, Verbal cues, Sequencing, Positioning Balance: Sitting Balance Static Sitting-Level of Assistance: Contact guard Dynamic Sitting-Level of Assistance: Contact guard Skilled Rationale: Tactile cues, Verbal cues, Sequencing, Hand placement Sitting Balance Skilled Intervention/Details: no overt LOB Standing Balance Static Standing-Level of Assistance: Minimum assistance Dynamic Standing-Level of Assistance: Minimum assistance Standing-Balance Support: Right hand held assist Skilled Rationale: Verbal cues, Positioning, Sequencing, Hand placement Standing Balance Skilled Intervention/Details: pt able to initiate lateral side steps Transfer Assessment: Sit to Stand Transfer [place] Level: Sit->Stand: minimum assist (75% patient effort) Physical Assist: Sit->Stand: 2 person assist Assistive Device: Sit->Stand: hand held assist Skilled Rationale: Verbal cues, Hand placement, Sequencing, Positioning Skilled Intervention/Details: Sit->Stand: x1 from EOB Gait/Functional Mobility: Gait Assessment [place] Level: Gait: not tested Skilled Intervention/Details - Gait: d/t pain CURRENT [facility] Basic Mobility Inpatient Short Form Turning over in bed: 3 - A Little Assistance Sitting/standing from chair: 2 - A Lot of Assistance Moving from lying on back to sittin - A Lot of Assistance Moving to and from bed to chair: 2 - A Lot of Assistance Walk in hospital room: 2 - A Lot of Assistance Climbing 3-5 steps with a railin - Total Assistance CURRENT [facility] Mobility Raw Score: 12 CURRENT [facility] Mobility Functional Limitation/Modifier: 68.66% Currently Impaired in Basic Mobility- CL Assessment & Plan: Patient was admitted for T2-L2 PSF with Dr. Rankin and seen for therapy evaluation related to decreased functional mobility after surgical intervention. Exam findings include impairments in: Pain, Gait/Locomotion, Sensation, Balance. These impairments contribute to functional limitations including Increased fall risk, Ambulation/locomotion pain, Decreased ambulation distance/endurance, Decreased functional mobility. Current clinical presentation is Evolving - changing/inconsistent clinical characteristics (Moderate). Patient history factors impacting Plan Of Care include pain. Patient will benefit from skilled physical therapy to address these impairments, functional limitations, and participation restrictionsand has good rehab potential to achieve therapy goals. Planned Therapy Interventions: balance training, endurance, functional activity tolerance, gait training Patient Instruction/Education this session: goals of therapy Plan for next session: progress standing maritza, gait Acute PT Goals Plan of Care by Jessica Pierce PT at 01/18/2023 1:04 PM Version 1 of 1 Problem: PT - Mobility Goal: Ambulation Description: Pt will ambulate 150 feet with least restrictive device with supervision to improve ability to navigate home environment. Outcome: Ongoing Goal: Stairs Description: Pt will ascend/descend 3 stairs with 1 railings with supervision with least restrictive device to improve ability to perform functional mobility necessary in recommended discharge environment. Outcome: Ongoing Problem: PT - Transfers Goal: Supine <-> Sit Description: Pt will perform bed mobility with flat bed & no rail with supervision in order to improve functional mobility and safety. Outcome: Ongoing Goal: Sit <-> Stand Description: Pt will perform sit to/from stand transfers with supervision with least restrictive device in order to improve functional mobility and safety. Outcome: Ongoing Goal: Other Description: Pt will recall 3/3 spinal precautions to promote healing after surgical intervention Outcome: Ongoing PT treatment consisted of the following to progress towards the above goal(s): PT Evaluation and Treatment Time PT Evaluation (Moderate) Time Entry: 14 Evaluating Therapist: Jessica Pierce PT Additional Details: PT Co-Eval/Treatment Information Co-evaluation/co-treatment performed?: Yes, simultaneous billable skilled care was necessary due tomedical complexity and functional deficits Other discipline: OT Rationale for need to co-eval/treat: postural control Evaluation Complexity Components History: Moderate (1-2 personal factors and/or comorbidities) Body Systems Review: Moderate (Addressing a total of 3 or more elements) Clinical Presentation: Evolving - changing/inconsistent clinical characteristics (Moderate) Clinical Decision Making: Moderate Time In: 08 Time Out: 0832 Total Visit Time: 14 minutes Total Treatment Time (skilled, billable minutes): 14 minutes PPE used during patient interaction: facemask, gloves Patient location at end of session: bed with head of bed elevated Alarms on at end of session: RN aware Needs in reach. Upon discontinuation of Acute Care Physical Therapy Services or patient discharge from the hospitalthis note represents the current Physical Therapy Discharge Summary. * Ellie Jacobo RN - 01/18/2023 12:55 PM EST Focused Assessment for Discharge Planning Patient is here for T2-L2 PSF with Dr. Rankin. Initial Discharge Planning Anticipated discharge disposition: Home Transportation Available for Discharge: Family or Friend Anticipated DME: none Patient Assessment Completed: Focused Advanced Care Planning Assessment HCPOA Agent(s): N/A Patient would like to complete HCPOA. Legal Next of Kin: Joe Keyes (mother) [phone] 2. Didi Hodgson (grandmother) [phone] Financial Resources Insurance: Yes Prescription Coverage: Yes Resources Needed: No Resources Provided: Living Environment and Support System Patient reports living independently with grandmother in a single level home with 3 steps to enter. Patient Resources Prior to Admission Post-acute Services: no Community Resources: no DME: yes - wheeled walker, shower chair Patient's goal for discharge is to discharge home with assistance from family as needed. medical case manager to continue ongoing assessment of potential needs and/or services as patient progresses. Will assist with care coordination and discharge planning as needed. * TYLER Kirkpatrick - 01/18/2023 11:25 AM EST POD # 1: T2-L2 PSF with Dr. Rankin Pt resting in NAD, family present at bedside. Denies any CP, SOB, fever or chills. Chaidez in place, no flatus since surgery. Tolerating diet. No N/V. Exam stable. Complexity Thrombocytopenia - Monitor Any conditions listed below are present on admission unless otherwise specified. Kyphosis: surgical intervention complete Post-op ed and treatment plan discussed. Reviewed spine precautions, discharge instructions, IS use, bed exercises, medications, dressing changes, and follow up, all questions answered. Confirmed patient's preferred pharmacy is [facility]. Adjusted pain regiment: discontinued BALL ENDER, oral medication (opioid) adjusted to every 3 hours, IV dilautid every 4 hours for breakthrough pain, encouraged patient to use diazepam every 6 hours for muscular spasms. Educated on pain medication and benefit and longer action of oral medications and IV medications use for breakthrough. Will discontinue chaidez once patient up with therapy successfully. Randee White APRN, CNP Orthopaedic Surgery * Janis Cordoba - 01/18/2023 9:10 AM EST Order - XR SPINE SCOLIOSIS Reason for cancel - unable to stand RN Name- Alli Time you spoke with RN - 841 Order Provider - Christophe Time paged/ messaged provider - [phone] Please reorder exam when patient meets following requirements - able to stand unassisted for at least 10 min Thank You X-ray/ Fluoroscopy Phone number - [phone] * Linda Dennis OT - 01/18/2023 8:17 AM EST Acute Occupational Therapy Evaluation Prior to Admission AM-PAC Score: PRIOR LEVEL AM-PAC Activity Raw Score: 24 Current AM-PAC score(s): CURRENT AM-PAC Activity Raw Score: 17 Based on the above AM-PAC score(s) and OT clinical judgment, discharge destination recommendation is: (anticipate home with initial 24 hr supervision) Barriers to discharge home: patient needs assistance with ADLs, patient needs assistance with functional mobility Mobility equipment available at home: 2 wheeled walker ADL equipment available at home: shower chair Equipment recommendations for discharge: to be determined Current therapy frequency recommendation(s) in acute: 5 times a week Activity Recommendations for outside of rehab session: up with 1 assist Precautions and Weightbearing Status: Urinary catheter (hemovac x1) Patient Safety Communication 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 Subjective: Pt received in supine upon arrival. Pt drowsy but easily awakens with name call. Pt alert and agreeable to session stating I am willing to try. Pain: General Pain Documentation (Adult, OB, Peds) Presence of Pain: complains of pain/discomfort Pain Location: back DVPRS (Defense and Veterans Pain Rating Scale) DVPRS: Rest: 7- severe pain DVPRS: Activity: 8- severe pain Home Setting Residence: House Lives With: (grandmother, 3 yo son) First floor setup: bedroom, walk-in shower Second floor setup: (does not need to access) Number of stairs to enter home: 3 Stair Railings at Home: entry - with rail Mobility Equipment Available: 2 wheeled walker ADL Equipment Available: shower chair Home Environment Details: reports family can help PRN Previous Level of Function Prior level ADL Overview: Independent with all ADLs Bed Mobility/Transfers: independent Ambulation Skills: independent Assistive Device: none used Level of Ambulation: community Prior Level of Function Details: + driving previously, 1 recent fall (Accidental) IADL History Primary Language: Kinyarwanda Objective/Observation: Vitals/Vitals Responses to Treatment: No signs or symptoms of distress noted. O2 Device: room air Vision Screen Currently wearing corrective lenses: No Visual Impairments Observed?: No Speech Speech: no gross deficits noted Successful Methods (Communication Strategies): verbal speech Hearing Hearing: no gross deficits noted Cognition Overall Cognitive Status: Within Functional Limits Arousal/Alertness: Appropriate responses to stimuli Orientation Level: Oriented X4 Following Commands: Follows all commands and directions without difficulty Safety Judgment: Good awareness of safety precautions Awareness of Errors: Good awareness of errors made Deficits: Fully aware of deficits Attention Span: Appears intact Memory: Appears intact Problem Solving: Able to problem solve independently Cognition Comments: Pt alert and demonstrates good insight into deficits. ADLs: Eating Assistance: Independent Grooming Assistance: Contact guard assist Bathing Assistance: Moderate UE Dressing Assistance: Independent LE Dressing Assistance: Moderate Toilet Assistance: Moderate Extremity Assessments: RUE Assessment RUE Assessment: PROM WFL, AROM Impaired, Strength Impaired Right UE Assessment Details: PROM 180 shoulder flex, active 45 degrees, strength grossly 2+/5, formal testing limited by pain, grasp 3-/5 LUE Assessment LUE Assessment: Strength Impaired, AROM Impaired Left UE Assessment Details: strength grossly 2+/5, AROM 60 degrees shoulder flexion, grasp 3-/5, formal testing limited by pain Balance: Sitting Balance Static Sitting-Level of Assistance: Contact guard Dynamic Sitting-Level of Assistance: Contact guard Skilled Rationale: Verbal cues Sitting Balance Skilled Intervention/Details: Pt able to sit unsupported with no overt LOB. Standing Balance Static Standing-Level of Assistance: Minimum assistance Dynamic Standing-Level of Assistance: Minimum assistance Skilled Rationale: Verbal cues Standing Balance Skilled Intervention/Details: Pt able to transfer and take side steps up toward HOB with no LOB. Neuro: Sensation Overall Sensation: Impaired Sensation Comments: reports chronic N/T in bilateral hands Proprioception Proprioception: intact Skin and Edema: Skin Integrity Skin Integrity Description: WFL Edema Edema: none noted Mobility Assessment: Supine to Sit Mobility [place] Level: Supine->Sit: maximum assist (25% patient effort) Bed Features/Set-up: Supine->Sit: Head of bed elevated, Use of bed rail Skilled Rationale: Verbal cues, Hand placement, Maintain precautions Skilled Intervention/Details: Supine->Sit: OT cued pt for log roll technique for spinal protection. Assist provided at trunk for comfort and safety due to high levels of L shoulder pain. Sit to Supine Mobility [place] Level: Sit->Supine: maximum assist (25% patient effort) Bed Features/Set-up: Sit->Supine: Head of bed elevated Skilled Rationale: Hand placement, Verbal cues, Maintain precautions Skilled Intervention/Details: Sit->Supine: OT cued pt for reverse log roll technique. Assist provided at LEs due to heightened levels of pain and coordinating with trunk movement back into bed. Transfer Assessment: Sit to Stand Transfer [place] Level: Sit->Stand: minimum assist (75% patient effort) Physical Assist: Sit->Stand: 2 person assist Assistive Device: Sit->Stand: hand held assist Skilled Rationale: Verbal cues, Hand placement Skilled Intervention/Details: Sit->Stand: OT cued pt for full, upright posture and safe LE positioning while in standing. x1 from EOB Stand to Sit Transfer [place] Level: Stand->Sit: minimum assist (75% patient effort) Physical Assist: Stand->Sit: 2 person assist Assistive Device: Stand->Sit: hand held assist Skilled Rationale: Verbal cues, Controlled descent for sitting, Technique of activity Skilled Intervention/Details: Stand->Sit: OT cued pt to reach back for bed rail and controlled descent to landing surface. x1 to EOB Functional Mobility: Outcome Score(s): CURRENT -[facility] Daily Activity Inpatient Short Form Putting on/Taking Off Lower Body Clothin - A Lot of Assistance Bathin - A Lot of Assistance Toiletin - A Lot of Assistance Putting on/Taking Off Upper Body Clothin - No Assistance Groomin - A Little Assistance Eatin - No Assistance CURRENT -[facility] Activity Raw Score: 17 CURRENT -[facility] Activity Functional Limitation/Modifier: 50.11% Currently Impaired in Daily Activity- CK Assessment & Plan: Patient was admitted for T2-L2 PSF and seen for therapy evaluation related to mobility concerns impacting occupational performance and independence with ADLs/IADLs. Exam findings include impairments in: endurance, pain, pain with movement, transfers, strength. These impairments contribute to occupational performance limitations including bathing, grooming, dressing, toileting, functional mobility, ADL transfers. The following factors impact the plan of care: post-procedural pain, reduced activity tolerance Patient will benefit from skilled occupational therapy to address these impairments, occupational performance limitations, and participation restrictions. Patient's rehab potential is: good, to achieve stated therapy goals. Planned Therapy Interventions (OT Eval): ADL retraining, bed mobility training, transfer training Patient Instruction/Education this session: role of OT, POC Plan for next session: standing tolerance for ADLs, LB dressing Acute OT Goals Plan of Care by Linda Dennis OT at 01/18/2023 8:17 AM Version 1 of 1 Problem: OT - Dressing Goal: Lower Body Dressing Description: Pt will complete LE dressing tasks with modified independence for improved ability to complete self-care activities. Outcome: Ongoing Problem: OT - ADLs Goal: Toileting Description: Pt will complete toileting task including clothing management with modified independence for improved ability to safely complete self-care activities. Outcome: Ongoing Problem: OT - Endurance Goal: Endurance Functional Mobilty Around Home Description: Pt will complete distance needed for limited community mobility. Outcome: Ongoing Goal: Endurance Functional Task Standing Description: Pt will engage in standing functional task for 15-20 minutes with modified independence to improve activity tolerance necessary for safe ADL completion at recommended discharge destination. Outcome: Ongoing Problem: OT - Transfers Goal: Transfers Logroll Description: Pt will properly utilize logroll technique transfer to EOB with modified independence,in order to follow precautions and improve participation in ADLs. Outcome: Ongoing OT treatment consisted of the following to work and progress towards the above goal(s): OT Evaluation and Treatment Time OT Evaluation (Moderate) Time Entry: 16 Evaluating Therapist: Linda Dennis OT Additional Details: OT Co-Eval/Treatment Information Co-evaluation/co-treatment performed?: Yes, combination of simultaneous billable and individual billable skilled care was necessary due to medical complexity and functional deficits Other discipline: PT Rationale for need to co-eval/treat: postural control (mobility concerns, pain management concerns) Co-treatment goal focus: balance, transfer OT Evaluation Complexity Occupational Profile and Client History: Moderate - expanded history Assessment of Occupational Performance: Moderate (3-5 performance deficits) Clinical Decision/Performance Deficits: Moderate (detailed assessments w/several treatment options) Time In: 816 Time Out: 832 Total Visit Time: 16 minutes Total Treatment Time (skilled, billable minutes): 16 minutes PPE used during patient interaction: facemask, gloves Patient location at end of session: bed with head of bed elevated Alarms on at end of session: RN aware Needs in reach. Upon discontinuation of Acute Care Occupational Therapy Services or patient discharge from the hospital this note represents the current Occupational Therapy Discharge Summary. * Jared Venegas DO - 01/18/2023 7:09 AM EST Orthopaedic Spine Surgery Progress Note: Aniyah Hodgson is a 22 y.o. female who is 1 Day Post-Op from T2-L2 PSF with Dr. Rankin. Last 24 Hours She states that she is doing very well. She notes that her left shoulder is sore. She denies any new numbness or tingling. She state she has used her BALL ENDER many times. Vitals Vitals: 01/18/23 0538 BP: 112/58 Pulse: 82 Resp: 16 Temp: 98.9 F (37.2 C) SpO2: 100% Physical Exam GEN: AOx3, resting in bed, NAD HEENT: NCAT, PERRLA, EOMI CV: normotensive LUNGS: non-labored breathing Spine Exam Incision: Clean and dry Neuro: Upper Extremity Strength: Right Left Deltoids C5 5/5 5/5 Biceps C6 5/5 5/5 Wrist Extensors 5/5 5/5 Triceps C7 5/5 5/5 Finger Flexors C8 5/5 5/5 First Dorsal Interossei 5/5 5/5 Lower Extremity Strength: Right Left Hip Flexors L2 5/5 5/5 Quadriceps L3 5/5 5/5 Anterior Tibialis L4 5/5 5/5 EHL L5 5/5 5/5 Hamstrings 5/5 5/5 Gastrocsoleus S1 5/5 5/5 Sensation to light touch in the upper and lower extremities is grossly intact. Laboratory Studies Lab Results Component Value Date WBC 6.71 01/18/2023 HGB 9.9 (L) 01/18/2023 HCT 28.9 (L) 01/18/2023 PLATELET 135 (L) 01/18/2023 MCV 91.5 01/18/2023 Lab Results Component Value Date SODIUM 141 01/18/2023 POTASSIUM 4.1 01/18/2023 CHLORIDE 109 (H) 01/18/2023 CO2 25 01/18/2023 BUN 6 (L) 01/18/2023 CREATSERUM 0.65 01/18/2023 GLUCOSE 103 (H) 01/18/2023 Lab Results Component Value Date INR 1.0 01/03/2023 PT 12.7 01/03/2023 Imaging/Cultures/Drains New Imaging: Pending Cultures: Pending Drains: 440 Assessment Aniyah Hodgson is a 22 y.o. female who is 1 Day Post-Op S/P T2-L2 PSF Plan Activity: As tolerated Antibiotics: Ancef for 24 hours postoperatively or while drain is in place Blood: Hemoglobin, Glucose control with goal of <120 Brace: None Cultures: None Diet: Liquid diet and progress to regular diet Drain: Hemovac drain sewn in place, monitor output Dressing: Clean/dry, change POD2 DVT Prophylaxis: SCD's, Lovenox to start 24 hours postoperatively Exercise: IS 10x/hr while awake, PT for mobilization (w/ or w/o walker TID), (walking QID) Chaidez: Goal to remove POD1-2 Pain Regimen: Multimodal Xrays: AP/Lateral standing scoli films Dispo: Anticipate discharge home/SNF in next 3-5 days. Appreciate SW assistance in placement and PTrecs. Follow-up: Follow up with Dr. Rankin team 2 weeks from surgery for wound check Jared Venegas DO Orthopedic Surgery [facility] Narrative* Gabriel Gonzalez MD - 01/22/2023 8:42 AM EST Discharge Summary Name: Aniyah Hodgson Age: 22 y.o. Birthday: 2000 Admit Date: 01/17/2023 5:20 AM Discharge Date: 01/22/2023 Discharge Time: AM [facility]charge [facility] Admission Information Admitting Physician: Juan Rankin MD Discharge Information Discharge Physician: Juan Rankin Problem List Active Hospital Problems Diagnosis H/O spinal fusion Resolved Hospital Problems No resolved problems to display. Brief Summary of Hospital Course for Discharge Summary: Aniyah Hodgson is a 22 y.o. 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 The patient elected to proceed with surgical intervention. The patient underwent the following procedure on 01/17/2023 by Juan Rankin MD: 1. T2-L2 posterior spinal arthrodesis 2. T2-L2 posterior spinal instrumentation 3. T4-5, T5-6, T6-7, T7-8, T8-9, T9-10 posterior column osteotomies 4. Local autograft 5. Allograft 6. Use of stereotactic navigation The patient tolerated the procedure well. Pain was controlled with oral pain medication. Home medications were also continued. Diet was advanced as tolerated. The patient was stable at discharge without any nausea or vomiting. The patient underwent evaluations with Physical Therapy and Occupational Therapy while hospitalized. Assessment proved stable. On day of discharge, the patient afebrile and hemodynamically stable, tolerating a diet with pain controlled on oral pain medication, mobilizing, and voiding spontaneously. Once approval was received, the patient was discharged in stable condition. Follow-up with Orthopedic Surgery is outlined in the discharge instructions. The patient was also instructed to follow-up with PCP outpatient. All other discharge instructions and follow-up information are in the patient After Visit Summary. Brief Summary of Consults for Discharge Summary: Brief Summary of Procedures and Imaging for Discharge Summary: Summary of last selected lab results and date obtained: Lab Results Component Value Date WBC 6.83 01/20/2023 HGB 9.3 (L) 01/20/2023 HCT 27.2 (L) 01/20/2023 PLATELET 141 (L) 01/20/2023 MCV 89.5 01/20/2023 Lab Results Component Value Date SODIUM 138 01/20/2023 POTASSIUM 3.6 01/20/2023 CHLORIDE 105 01/20/2023 CO2 24 01/20/2023 BUN 3 (L) 01/20/2023 CREATSERUM 0.51 01/20/2023 GLUCOSE 117 (H) 01/20/2023 No results found for: ALT, TRANSFERASEA, AST, GGT, GAMMAGT, ALKPHOS, BILITOTAL, BILIDIRECT Brief Summary of Labs for Discharge Summary: No discharge procedures on file. Current Outpatient Meds: Medication List for when you go home START taking these medications acetaminophen 500 MG TABS Take 2 tablets by mouth every 8 hours. Commonly known as: TYLENOL docusate 100 MG CAPS Take 1 capsule by mouth 2 times daily. Enoxaparin Sodium 40 MG/0.4ML injection Inject 0.4 mL under the skin every 24 hours. Commonly known as: LOVENOX naloxone 4 MG/0.1ML 1 spray by Nasal route As directed PRN for Opioid Reversal. [place] into the nose as directed. Call 911. If no response in 2 minutes use a new nasal spray in other nostril. Repeat until help arrives. Commonly known as: NARCAN Ondansetron 4 MG TABS Take 1 tablet by mouth every 8 hours as needed for Nausea / Vomiting for up to 3 days. Commonly known as: ZOFRAN oxyCODONE 5 MG TABS Take 1-2 tablets by mouth every 4 hours as needed for Moderate Pain or Severe Pain (Hold for sedation. Max 8 tabs per day.) for up to 7 days. Commonly known as: ROXICODONE For diagnoses: S/P spinal fusion Polyethylene glycol 17 g PACK packet Take 1 packet by mouth daily as needed for Constipation for up to 10 days. Commonly known as: MIRALAX Sennosides 17.2 MG TABS Take 1 tablet by mouth 2 times daily. Commonly known as: SENOKOT CHANGE how you take these medications Cyclobenzaprine 5 MG TABS Take 1 tablet by mouth every 8 hours as needed for Muscle spasms for up to 5 days. Commonly known as: FLEXERIL What changed: The strength you have reported taking of this medication has changed The quantity you have reported taking of this medication has changed How often you have reported taking this medication has changed You should now only take this medication as needed CONTINUE taking these medications cyanocobalamin 1000 MCG TABS Take 1 tablet by mouth at bedtime. Commonly known as: VITAMIN B12 Gabapentin 300 MG CAPS Take 1 capsule by mouth 3 times daily. Commonly known as: NEURONTIN traZODone 50 MG TABS Take 1 tablet by mouth at bedtime. Commonly known as: DESYREL STOP taking these medications hydroCODone-acetaminophen 5-325 MG TABS Commonly known as: NORCO Meloxicam 7.5 MG TABS Commonly known as: MOBIC Follow-up: No follow-up provider specified. Upcoming Appointments (up to five)-Some appointments for Medical Center outpatient clinics or diagnostic testing locations are not displayed below Provider Department Dept Phone 01/31/2023 2:00 PM Amber Salguero Jr. Spine Care Outpatient Care [facility] Arrive at: Arrive to 1st Floor, [facility] Spine Center Registration Desk [phone] 02/24/2023 3:15 PM Juan Rankin Spine Care Outpatient Care [facility] Arrive at: Arrive to 1st Floor, [facility] Spine Center Registration Desk [phone] [facility]* Plan of Care - Hector Suazo RN - 01/21/2023 5:07 PM EST Problem: Patient Care Overview Goal: Plan of Care Review Outcome: Ongoing Goal: Individualization & Mutuality Outcome: Ongoing Goal: Discharge Needs Assessment Outcome: Ongoing Goal: Interdisciplinary Rounds/Family Conf Outcome: Ongoing [facility] Plan of care note* Plan of Care - Thalia Acuna PT - 01/21/2023 10:06 AM EST Problem: PT - Mobility Goal: Ambulation Description: Pt will ambulate 150 feet with least restrictive device with supervision to improve ability to navigate home environment. Outcome: Met This Shift Note: Met this shift but need to assess for consistency at next session Goal: Stairs Description: Pt will ascend/descend 3 stairs with 1 railings with supervision with least restrictive device to improve ability to perform functional mobility necessary in recommended discharge environment. Outcome: Met This Shift Note: Met this shift but need to assess for consistency at next session Problem: PT - Transfers Goal: Supine <-> Sit Description: Pt will perform bed mobility with flat bed & no rail with supervision in order to improve functional mobility and safety. Outcome: Met This Shift Note: Met this shift but need to assess for consistency at next session Goal: Sit <-> Stand Description: Pt will perform sit to/from stand transfers with supervision with least restrictive device in order to improve functional mobility and safety. Outcome: Met This Shift Note: Met this shift but need to assess for consistency at next session Problem: PT - Transfers Goal: Other Description: Pt will recall 3/3 spinal precautions to promote healing after surgical intervention Outcome: Completed [facility]11-17-2023 Plan of care note* Plan of Care - Linda Dennis OT - 01/21/2023 9:07 AM EST Problem: OT - Dressing Goal: Lower Body Dressing Description: Pt will complete LE dressing tasks with modified independence for improved ability to complete self-care activities. Outcome: Met This Shift Problem: OT - Endurance Goal: Endurance Functional Mobilty Around Home Description: Pt will complete distance needed for limited community mobility. Outcome: Met This Shift Problem: OT - Transfers Goal: Transfers Logroll Description: Pt will properly utilize logroll technique transfer to EOB with modified independence,in order to follow precautions and improve participation in ADLs. Outcome: Met This Shift Problem: OT - Endurance Goal: Endurance Functional Task Standing Description: Pt will engage in standing functional task for 15-20 minutes with modified independence to improve activity tolerance necessary for safe ADL completion at recommended discharge destination. Outcome: Adequate for Discharge [facility]11-17-2023 Nurse Note* Nursing Notes - Meg Baron RN - 01/21/2023 4:21 AM EST On-call Ortho-Surgery Damien JHA Paged [phone]: [phone] Thorn: Hi can pt. have milk of mag ordered to aid in bowel movement? Still complaints of abd discomfort and constipation, miralax and dulcolax suppository unsuccessful, last BM 01/16. Thankyou! -DORCAS Weaver #[phone] [facility]11-16-2023 Plan of care note* Plan of Care - Meg Baron RN - 01/20/2023 11:56 PM EST Problem: Patient Care Overview Goal: Plan of Care Review Outcome: Ongoing Goal: Individualization & Mutuality Outcome: Ongoing Goal: Discharge Needs Assessment Outcome: Ongoing Goal: Interdisciplinary Rounds/Family Conf Outcome: Ongoing Problem: Pain, Acute (Adult) Goal: Identify Related Risk Factors and Signs and Symptoms Description: Related risk factors and signs and symptoms are identified upon initiation of Human Response Clinical Practice Guideline (CPG) Outcome: Ongoing Goal: Acceptable Pain Control/Comfort Level Description: Patient will demonstrate the desired outcomes by discharge/transition of care. Outcome: Ongoing Intervention: Monitor/Manage Analgesia Flowsheets (Taken 01/20/2023 2345) Pain Management Interventions: unnecessary movement avoided relaxation positioning activity minimized declines intervention Bowel Intervention: adequate fluid intake promoted ambulation promoted diet adjusted privacy promoted Intervention: Mutually Develop/Implement Acute Pain Management Plan Flowsheets (Taken 01/20/2023 2345) Sensory Stimulation Regulation: care clustered lighting decreased quiet environment promoted Intervention: Support/Optimize Psychosocial Response to Acute Pain Flowsheets Taken 01/20/2023 2345 Family/Support System Care: self-care encouraged support provided Trust Relationship/Rapport: care explained questions answered questions encouraged thoughts/feelings acknowledged reassurance provided emotional support provided Taken 01/19/2023 1940 Supportive Measures: self-care encouraged relaxation techniques promoted [facility]11-16-2023 Plan of care note* Plan of Care - Ruth Mahan - 01/20/2023 5:33 PM EST Problem: Patient Care Overview Goal: Plan of Care Review Outcome: Ongoing Goal: Individualization & Mutuality Outcome: Ongoing Goal: Discharge Needs Assessment Outcome: Ongoing Goal: Interdisciplinary Rounds/Family Conf Outcome: Ongoing Problem: Pain, Acute (Adult) Goal: Identify Related Risk Factors and Signs and Symptoms Description: Related risk factors and signs and symptoms are identified upon initiation of Human Response Clinical Practice Guideline (CPG) Outcome: Ongoing Goal: Acceptable Pain Control/Comfort Level Description: Patient will demonstrate the desired outcomes by discharge/transition of care. Outcome: Ongoing [facility]11-16-2023 Plan of care note* Plan of Care - Eve Montelongo PT - 01/20/2023 8:45 AM EST Problem: PT - Mobility Goal: Ambulation Description: Pt will ambulate 150 feet with least restrictive device with supervision to improve ability to navigate home environment. Outcome: Ongoing Goal: Stairs Description: Pt will ascend/descend 3 stairs with 1 railings with supervision with least restrictive device to improve ability to perform functional mobility necessary in recommended discharge environment. Outcome: Ongoing Problem: PT - Transfers Goal: Sit <-> Stand Description: Pt will perform sit to/from stand transfers with supervision with least restrictive device in order to improve functional mobility and safety. Outcome: Ongoing Goal: Other Description: Pt will recall 3/3 spinal precautions to promote healing after surgical intervention Outcome: Ongoing [facility]11-16-2023 Plan of care note* Plan of Care - Linda Dennis OT - 01/20/2023 7:41 AM EST Problem: OT - Dressing Goal: Lower Body Dressing Description: Pt will complete LE dressing tasks with modified independence for improved ability to complete self-care activities. Outcome: Ongoing Problem: OT - Endurance Goal: Endurance Functional Mobilty Around Home Description: Pt will complete distance needed for limited community mobility. Outcome: Ongoing Goal: Endurance Functional Task Standing Description: Pt will engage in standing functional task for 15-20 minutes with modified independence to improve activity tolerance necessary for safe ADL completion at recommended discharge destination. Outcome: Ongoing Problem: OT - Transfers Goal: Transfers Logroll Description: Pt will properly utilize logroll technique transfer to EOB with modified independence,in order to follow precautions and improve participation in ADLs. Outcome: Ongoing [facility] Plan of care note* Plan of Care - Meg Baron RN - 01/19/2023 11:06 PM EST Problem: Pain, Acute (Adult) Goal: Identify Related Risk Factors and Signs and Symptoms Description: Related risk factors and signs and symptoms are identified upon initiation of Human Response Clinical Practice Guideline (CPG) Outcome: Ongoing Goal: Acceptable Pain Control/Comfort Level Description: Patient will demonstrate the desired outcomes by discharge/transition of care. Outcome: Ongoing Intervention: Monitor/Manage Analgesia Flowsheets Taken 01/19/20232127 Pain Management Interventions: medication given, see MAR Taken 01/19/20231939 Bowel Intervention: adequate fluid intake promoted ambulation promoted diet adjusted privacy promoted Intervention: Mutually Develop/Implement Acute Pain Management Plan Flowsheets (Taken 01/19/20231939) Sensory Stimulation Regulation: care clustered lighting decreased quiet environment promoted Intervention: Support/Optimize Psychosocial Response to Acute Pain Flowsheets (Taken 01/19/20231939) Supportive Measures: self-care encouraged relaxation techniques promoted Diversional Activities: smartphone Family/Support System Care: self-care encouraged support provided Trust Relationship/Rapport: care explained thoughts/feelings acknowledged questions answered questions encouraged emotional support provided [facility]11-15-2023 Plan of care note* Plan of Care - Alli Willard RN - 01/19/2023 7:40 PM EST Problem: Patient Care Overview Goal: Plan of Care Review Outcome: Ongoing Goal: Individualization & Mutuality Outcome: Ongoing Goal: Discharge Needs Assessment Outcome: Ongoing Goal: Interdisciplinary Rounds/Family Conf Outcome: Ongoing Problem: Pain, Acute (Adult) Goal: Identify Related Risk Factors and Signs and Symptoms Description: Related risk factors and signs and symptoms are identified upon initiation of Human Response Clinical Practice Guideline (CPG) Outcome: Ongoing Goal: Acceptable Pain Control/Comfort Level Description: Patient will demonstrate the desired outcomes by discharge/transition of care. Outcome: Ongoing [facility]11-15-2023 Plan of care note* Plan of Care - Jessica Pierce, PT - 01/19/2023 3:44 PM EST Problem: PT - Mobility Goal: Ambulation Description: Pt will ambulate 150 feet with least restrictive device with supervision to improve ability to navigate home environment. Outcome: Progressing Toward Goal Problem: PT - Transfers Goal: Supine <-> Sit Description: Pt will perform bed mobility with flat bed & no rail with supervision in order to improve functional mobility and safety. Outcome: Progressing Toward Goal Goal: Sit <-> Stand Description: Pt will perform sit to/from stand transfers with supervision with least restrictive device in order to improve functional mobility and safety. Outcome: Progressing Toward Goal [facility]11-15-2023 Plan of care note* Plan of Care - Linda Dennis OT - 01/19/2023 8:11 AM EST Problem: OT - ADLs Goal: Toileting Description: Pt will complete toileting task including clothing management with modified independence for improved ability to safely complete self-care activities. Outcome: Ongoing Problem: OT - Endurance Goal: Endurance Functional Task Standing Description: Pt will engage in standing functional task for 15-20 minutes with modified independence to improve activity tolerance necessary for safe ADL completion at recommended discharge destination. Outcome: Ongoing Problem: OT - Transfers Goal: Transfers Logroll Description: Pt will properly utilize logroll technique transfer to EOB with modified independence,in order to follow precautions and improve participation in ADLs. Outcome: Ongoing [facility]11-15-2023 Nurse Note* Nursing Notes - Meg Baron RN - 01/19/2023 5:21 AM EST On-call Ortho-Surgery MD Paged [phone]: MD Damien: [phone] [phone] Rema: DOUG pt. has a double lumen femoral central line, can we have a communication orderfor OK to use line/orders to manage, please advise thanks! - DORCAS Weaver #[phone] [facility]11-15-2023 Plan of care note* Plan of Care - Meg Baron RN - 01/19/2023 12:07 AM EST Problem: Patient Care Overview Goal: Plan of Care Review Outcome: Ongoing Goal: Individualization & Mutuality Outcome: Ongoing Goal: Discharge Needs Assessment Outcome: Ongoing Goal: Interdisciplinary Rounds/Family Conf Outcome: Ongoing Problem: Pain, Acute (Adult) Goal: Identify Related Risk Factors and Signs and Symptoms Description: Related risk factors and signs and symptoms are identified upon initiation of Human Response Clinical Practice Guideline (CPG) Outcome: Ongoing Goal: Acceptable Pain Control/Comfort Level Description: Patient will demonstrate the desired outcomes by discharge/transition of care. Outcome: Ongoing Intervention: Monitor/Manage Analgesia Flowsheets Taken 01/19/20236 Bowel Intervention: adequate fluid intake promoted Taken 01/18/20232339 Pain Management Interventions: medication given, see MAR Intervention: Mutually Develop/Implement Acute Pain Management Plan Flowsheets (Taken 01/19/20236) Sensory Stimulation Regulation: care clustered lighting decreased quiet environment promoted Intervention: Support/Optimize Psychosocial Response to Acute Pain Flowsheets Taken 01/19/20236 Supportive Measures: self-care encouraged Family/Support System Care: self-care encouraged Taken 01/18/20232037 Diversional Activities: television smartphone Trust Relationship/Rapport: care explained questions encouraged questions answered thoughts/feelings acknowledged [facility]11-14-2023 Plan of care note* Plan of Care - Jessica Pierce, PT - 01/18/2023 1:04 PM EST Problem: PT - Mobility Goal: Ambulation Description: Pt will ambulate 150 feet with least restrictive device with supervision to improve ability to navigate home environment. Outcome: Ongoing Goal: Stairs Description: Pt will ascend/descend 3 stairs with 1 railings with supervision with least restrictive device to improve ability to perform functional mobility necessary in recommended discharge environment. Outcome: Ongoing Problem: PT - Transfers Goal: Supine <-> Sit Description: Pt will perform bed mobility with flat bed & no rail with supervision in order to improve functional mobility and safety. Outcome: Ongoing Goal: Sit <-> Stand Description: Pt will perform sit to/from stand transfers with supervision with least restrictive device in order to improve functional mobility and safety. Outcome: Ongoing Goal: Other Description: Pt will recall 3/3 spinal precautions to promote healing after surgical intervention [facility]: [facility]* Bar Marques MD - 01/18/2023 10:15 AM ESTAssociated Order(s): IP CONSULT TO GENERAL MEDICINE Images from the original note were not included. GENERAL INTERNAL MEDICINE CONSULT Patient: Aniyah Hodgson, 2000, [id number] Physician: Bar Rachel MD, Attending Physician, Pager #[phone] Date of face to face patient encounter: 01/18/2023 Consulting Physician: Juan Rankin MD IMPRESSION/PLAN Aniyah Hodgson is a 22 y.o. female with PMH of kyphosis, chronic pain admitted to the hospital after T2-L2 PSF, and IM consulted for Medical co-management. Kyphosis: status post T2-L2 PSF with Dr. Rankin 01/17/23. Postoperative care and pain management per Orthopedics. Acute postoperative pain, currently has a BALL ENDER, wean pain medications as tolerated. Chronic pain: continue to titrate up gabapentin as needed. continue muscle relaxer as needed for symptomatic relief. Insomnia: continue Trazodone at night. DVT prophylaxis with Lovenox Thank you for the consultation, Consult 1 team will follow as needed, please call us #[phone] with anyquestions REASON FOR CONSULTATION Medical co-management HISTORY OF PRESENT ILLNESS Aniyah Hodgson is a 22 y.o. female that has been admitted to [facility]. Aniyah Hodgson is a 22 y.o. female with PMH of kyphosis, chronic pain admitted to the hospital after T2-L2 PSF, and IM consulted for Medical co-management. Patient is reporting intractable backache, feels her pain is severe 10/10 at worst, currently on Morphine BALL ENDER. Takes Trazodone for sleep almost every night. Recently started on gabapentin for chronicpain, working on titrating the dose. MEDICAL HISTORY No past medical history on file. Past Surgical History: Procedure Laterality Date EXCISION GANGLION CYST SKIN BIOPSY mole removal TONSILLECTOMY ADENOIDECTOMY SOCIAL HISTORY Social History Tobacco Use Smoking status: Former Types: Cigarettes Quit date: 12/01/2022 Years since quittin.1 Smokeless tobacco: Never Substance Use Topics Alcohol use: Not on file Social History Substance and Sexual Activity Drug Use Not on file FAMILY HISTORY family history is not on file. MEDICATIONS Prior to Admission Medications Prescriptions Last Dose Informant Patient Reported? Taking? Cyclobenzaprine 10 MG tablet Past Month Yes Yes Sig: Take 1 tablet by mouth as needed. Gabapentin 300 MG capsule Past Month Yes Yes Sig: Take 1 capsule by mouth 3 times daily. Meloxicam 7.5 MG tablet Past Month Yes Yes Sig: Take 1 tablet by mouth 2 times daily. cyanocobalamin 1000 MCG tablet Past Month Yes Yes Sig: Take 1 tablet by mouth at bedtime. hydroCODone-acetaminophen 5-325 MG tablet Past Month Yes Yes Sig: Take 1 tablet by mouth as needed. traZODone 50 MG tablet Past Month Yes Yes Sig: Take 1 tablet by mouth at bedtime. Facility-Administered Medications: None ALLERGIES Allergies Allergen Reactions Amoxicillin-Pot Clavulanate Nausea and Vomiting Other reaction(s): Mental Status Change Patient states she was punching things and didn't know where she was REVIEW OF SYSTEMS As detailed in HPI PHYSICAL EXAM Vitals: 01/18/23799 BP: 106/59 Pulse: 95 Resp: 20 Temp: 98.1 F (36.7 C) SpO2: 100% O2 Device: room air (01/18/23 08) Flow (L/min): 0 (01/18/23 0043) Gen: 22 y.o. female Alert, Awake, Oriented x 3, in NAD Chest: no tachypnea, retractions or cyanosis. CVS exam: normal rate and regular rhythm. Abdominal exam: soft, nontender, nondistended, no masses or organomegaly. Neurological exam reveals screening mental status exam normal, motor and sensory grossly normal bilaterally. DATA REVIEW WBC/Hgb/Hct/Plts: 6.71/9.9/28.9/135 (01/18 119) Na/K+/Phos/Mg/Ca: 141/4.1/--/--/8.6 (01/18 119) Bun/Creat/Cl/CO2/Glucose: 6/0.65/109/25/103 (01/18 119) Body mass index is 23.45 kg/m . Reviewed all the relevant laboratory and imaging studies Signed, Bar Rachel MD [facility] Work Phone: 1(586) 623-753611-14-2023 Consult note* Bar Marques MD - 01/18/2023 10:15 AM ESTAssociated Order(s): IP CONSULT TO GENERAL MEDICINE Images from the original note were not included. GENERAL INTERNAL MEDICINE CONSULT Patient: Aniyah Hodgson, 2000, [id number] Physician: Bar Rachel MD, Attending Physician, Pager #[phone] Date of face to face patient encounter: 01/18/2023 Consulting Physician: Juan Rankin MD IMPRESSION/PLAN Aniyah Hodgson is a 22 y.o. female with PMH of kyphosis, chronic pain admitted to the hospital after T2-L2 PSF, and IM consulted for Medical co-management. Kyphosis: status post T2-L2 PSF with Dr. Rankin 01/17/23. Postoperative care and pain management per Orthopedics. Acute postoperative pain, currently has a BALL ENDER, wean pain medications as tolerated. Chronic pain: continue to titrate up gabapentin as needed. continue muscle relaxer as needed for symptomatic relief. Insomnia: continue Trazodone at night. DVT prophylaxis with Lovenox Thank you for the consultation, Consult 1 team will follow as needed, please call us #[phone] with anyquestions REASON FOR CONSULTATION Medical co-management HISTORY OF PRESENT ILLNESS Aniyah Hodgson is a 22 y.o. female that has been admitted to The [facility]. Aniyah Hodgson is a 22 y.o. female with PMH of kyphosis, chronic pain admitted to the hospital after T2-L2 PSF, and IM consulted for Medical co-management. Patient is reporting intractable backache, feels her pain is severe 10/10 at worst, currently on Morphine BALL ENDER. Takes Trazodone for sleep almost every night. Recently started on gabapentin for chronicpain, working on titrating the dose. MEDICAL HISTORY No past medical history on file. Past Surgical History: Procedure Laterality Date EXCISION GANGLION CYST SKIN BIOPSY mole removal TONSILLECTOMY ADENOIDECTOMY SOCIAL HISTORY Social History Tobacco Use Smoking status: Former Types: Cigarettes Quit date: 12/01/2022 Years since quittin.1 Smokeless tobacco: Never Substance Use Topics Alcohol use: Not on file Social History Substance and Sexual Activity Drug Use Not on file FAMILY HISTORY family history is not on file. MEDICATIONS Prior to Admission Medications Prescriptions Last Dose Informant Patient Reported? Taking? Cyclobenzaprine 10 MG tablet Past Month Yes Yes Sig: Take 1 tablet by mouth as needed. Gabapentin 300 MG capsule Past Month Yes Yes Sig: Take 1 capsule by mouth 3 times daily. Meloxicam 7.5 MG tablet Past Month Yes Yes Sig: Take 1 tablet by mouth 2 times daily. cyanocobalamin 1000 MCG tablet Past Month Yes Yes Sig: Take 1 tablet by mouth at bedtime. hydroCODone-acetaminophen 5-325 MG tablet Past Month Yes Yes Sig: Take 1 tablet by mouth as needed. traZODone 50 MG tablet Past Month Yes Yes Sig: Take 1 tablet by mouth at bedtime. Facility-Administered Medications: None ALLERGIES Allergies Allergen Reactions Amoxicillin-Pot Clavulanate Nausea and Vomiting Other reaction(s): Mental Status Change Patient states she was punching things and didn't know where she was REVIEW OF SYSTEMS As detailed in HPI PHYSICAL EXAM Vitals: 01/18/23799 BP: 106/59 Pulse: 95 Resp: 20 Temp: 98.1 F (36.7 C) SpO2: 100% O2 Device: room air (01/18/23799) Flow (L/min): 0 (01/18/23 0043) Gen: 22 y.o. female Alert, Awake, Oriented x 3, in NAD Chest: no tachypnea, retractions or cyanosis. CVS exam: normal rate and regular rhythm. Abdominal exam: soft, nontender, nondistended, no masses or organomegaly. Neurological exam reveals screening mental status exam normal, motor and sensory grossly normal bilaterally. DATA REVIEW WBC/Hgb/Hct/Plts: 6.71/9.9/28.9/135 (01/18 119) Na/K+/Phos/Mg/Ca: 141/4.1/--/--/8.6 (01/18 119) Bun/Creat/Cl/CO2/Glucose: 6/0.65/109/25/103 (01/18 119) Body mass index is 23.45 kg/m . Reviewed all the relevant laboratory and imaging studies Signed, Bar Rachel MD [facility] Discharge instructions* Discharge Instructions* Randee White, MEDIA LIBRARIAN-PROFESSOR OF PHYSICAL EDUCATION - 01/18/2023 8:[address] RANKIN S DISCHARGE INSTRUCTIONS SPINAL FUSION SHOWERING Your wound is to be kept clean and dry. You may take a shower with a handheld shower avoiding the surgical incision. Pat the wound dry after showering. You will need to change the dressing if it getswater on it. If the incision is dry without drainage, then hair washing is permissible while in theshower 5 days after surgery. No tub baths, hot tubs or whirlpools until seen in the office. Keep incision dry and out of direct stream of water for the first 3 weeks. INCISION Leave the dressing in place for 5 days after surgery. If the dressing appears saturated, you may change the dressing. Prior to any dressing changes, please ask your support person to wash hands thoroughly. After removing dressing, replace with clean dry dressing daily if incision is still draining. Once dressing/incision is dry for 48 hours, the incision may be open to air. You may cover incision as needed to prevent irritation or when going out in public. Do not take a bath or submerge incision in pool until 6 weeks after surgery or until cleared by surgeon s office. Do not apply any cream or lotion to the incision until discussed with surgeon. Please make sure your incisions are checked whenever changing dressing for signs and symptoms of infection: If any of the below should occur, please call the office. - Wound infection (fever greater than 101, drainage from the wound, opening of the wound, increasedredness and/or tenderness) - Urinary tract infection (fever greater than 101, burning on urination or increased frequency of urination) - Lower extremity blood clots and pulmonary emboli (increased leg pain, swelling, warmth or redness, increased heart rate, shortness of breath, or chest pain) - Nerve problems (inability to walk on your heels or toes, numbness/tingling, weakness of the arms or legs, loss of bowel or bladder control) If you have billy or sutures (not tape) in your incision they may be removed 2 weeks following your surgery. This may be done by a visiting nurse, family physician or by making an appointment to come into the office. If you have steri strips, allow steri strips to fall off on own. EXERCISE Lift objects weighing less than 5-10 lbs Do not bend or twist at the waist-always bend your knees!! Walking: goal of 30 minutes twice a day. You may have to work up to that goal if inactive prior to surgery. Walking outside (in nice weather only) or walking on a treadmill (no incline) is also allowed. PAIN Take pain medication as prescribed. As your pain level decreases, you may begin to take [id number] Extra Strength Tylenol. DO NOT take any anti- inflammatories (like Motrin, Advil, etc ) for 10 weeks after surgery. Taking anti-inflammatories can decrease fusion healing. NO tobacco products. DRIVING You may NOT drive a car until told otherwise by your physician. You may be a passenger for short distances (20-30 minutes). If you must take a longer trip, make sure to make several pit stops so thatyou can walk around and stretch your legs. Reclining the passenger seat seems to be the most comfortable position for most patients. FOLLOW-UP APPOINTMENTS Please make an appointment for 2-3 weeks from your discharge date unless you need to have sutures or billy removed. Please call [phone]. QUESTIONS or CONCERNS If you have any additional questions/concerns, please contact [phone] during regular business hours Tuesday through Tuesday. If it is after hours or weekend and an emergency, please call [facility] at [phone] and ask for the spine resident supervisor electronics processing. * Attachments The following attachments cannot be sent through Care Everywhere. * [facility] ([facility] (Kinyarwanda) [facility] Plan of care note* Plan of Care - Linda Dennis OT - 01/18/2023 8:17 AM EST Problem: OT - Dressing Goal: Lower Body Dressing Description: Pt will complete LE dressing tasks with modified independence for improved ability to complete self-care activities. Outcome: Ongoing Problem: OT - ADLs Goal: Toileting Description: Pt will complete toileting task including clothing management with modified independence for improved ability to safely complete self-care activities. Outcome: Ongoing Problem: OT - Endurance Goal: Endurance Functional Mobilty Around Home Description: Pt will complete distance needed for limited community mobility. Outcome: Ongoing Goal: Endurance Functional Task Standing Description: Pt will engage in standing functional task for 15-20 minutes with modified independence to improve activity tolerance necessary for safe ADL completion at recommended discharge destination. Outcome: Ongoing Problem: OT - Transfers Goal: Transfers Logroll Description: Pt will properly utilize logroll technique transfer to EOB with modified independence,in order to follow precautions and improve participation in ADLs. 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 She tried nonoperative treatment without of her pain. She felt that her curve was getting worse. Had imaging done that showed kyphosis of nearly degrees. We had a thorough discussion patient regarding risks benefits and alternatives she wished to proceed with surgical understanding these. She gave consent to proceeding. Description of Procedure: Aniyah Hodgson was met preoperatively. Further questions were answered. She was then seen by Anesthesia Nursing taken back to the operating. Once OR, she was intubated without difficulty. Lines and leads were placed. She was then positioned prone a Tom table. Care was taken pad all bony prominences. Her spine was then prepped and draped the standard sterile fashion. Following 2nd time-out, incision was made from the upper thoracic spine to upper lumbar spine. Dissection was carried down to the level of fascia. Fascia was incised at midline. Muscle was then subperiosteally dissected off the spinous processes lamina. Transverse process was exposed from T2-L2. Care was taken not to violate T1-2 facet joints. Next, inferior articular processes removed from T2-3 joint to the L1-2 joint. Local was saved. Next, attention was turned to screw placement. Screws were placed in following manner T5-L2. A bur was used to create entry point, this was followed gearshift, followed by ball-tip probe, followed by tap,followed by ball-tip probe, followed by screw placement. This was done bilaterally. Next, O- arm wasbrought in to check screw placement. Stereotactic navigation was then used for the T2-4 screws. This was done in the following manner. A navigated bur was used, followed by a navigated tap, followed by ball-tip probe, followed by navigated screw placement. A confirmatory O arm spin was then obtained. Fluoroscopy was brought in. All screws were found to be position. Next, attention was turned to performing posterior column osteotomies. This was done from T4-5 to T9-10. Spinous process was removed followed by removal of ligamentum flavum at these levels. Superiorarticular process was bilaterally at these levels. Next, attention was turned to albina placement. Albina was measured, contoured and secured proximally. Compression was applied across proximal screws. Next, this was sequentially performed as we went down level by level. Were used bottom levels gently reducing the spine to the albina good compression was noted across the osteotomy sites. Fluoroscopy shots confirmed improvement in kyphosis. Next, set screws were final tightened. Next, all bony surfaces were decorticated. Combination of local bone and allograft was then used and placed over bleeding bony surfaces. Closure was then performed. Ethibond suture used to reinforce interspinous ligaments upper thoracicspine. Deep drain was placed. Fascia was closed with combination Vicryl Stratafix. Subcutaneous tissues 2-0 Stratafix. Subcuticular tissues 3-0 Stratafix. Skin was Dermabond Prineo. Sterile dressings. Drain was secured. Patient was then transferred back hospital bed, extubated, taken to PACU in stable condition. Wound was irrigated thoroughly throughout procedure. All sponge and needle counts were correct throughout the procedure. [facility]11-13-2023 Nurse Note* Nursing Notes - Kristie Wan RN - 01/17/2023 6:24 PM EST On admission to [facility], From OR a dual RN initial assessment of skin condition was performed by Kristie Wan RN and Radha Ashby RN. Skin Assessment/Invervention: Skin not within defined limits. - Surgical incision to midline back with 1 hemovac drain c/d/i If Wound(s) Identified/LDA Added: No, LDA present Kristie Wan RN [facility]11-13-2023 Nurse Note* Nursing Notes - Kristie Wan RN - 01/17/2023 6:24 PM EST MD Que[place] paged the following: [facility] [address], T - No orders for oxycodone, could we get PRN orderto bridge her from BALL ENDER pump? Thanks! Kristie [phone] [facility]11-13-2023 Nurse Note* Nursing Notes - Caty Salguero RN - 01/17/2023 6:02 PM EST Patient sufficiently recovered from anesthesia. Report called to admitting unit. PACU admission assessment remains unchanged, dressings intact. Pt transported on telemetry and pulse ox with RN at bedside. [facility]11-13-2023 Nurse Note* Nursing Notes - Caty Salguero RN - 01/17/2023 5:25 PM EST Pt states, I should not be feeling anything. Pt educated on post op pain and expectations movingforward. Pt rests in between care in NAD. [facility]11-13-2023 Plan of care note* Plan of Care - Gabriel Saeed MD - 01/17/2023 3:52 PM EST Assessment 22 y.o. female, Day of Surgery S/P T2-L2 PSF with Dr. Rankin on 01/17/23. Plan Activity: As tolerated Antibiotics: Ancef for 24 hours postoperatively or while drain is in place Blood: Hemoglobin, Glucose control with goal of <120 Brace: None Cultures: None Diet: Liquid diet and progress to regular diet Drain: Hemovac drain sewn in place, monitor output Dressing: Clean/dry, change POD2 DVT Prophylaxis: SCD's, Lovenox to start 24 hours postoperatively Exercise: IS 10x/hr while awake, PT for mobilization (w/ or w/o walker TID), (walking QID) Chaidez: Goal to remove POD1-2 Pain Regimen: Multimodal Xrays: AP/Lateral standing scoli films Dispo: Anticipate discharge home/SNF in next 3-5 days. Appreciate SW assistance in placement and PTrecs. Follow-up: Follow up with Dr. Rankin team 2 weeks from surgery for wound check Gabriel Saeed MD Orthopaedic Spine Fellow [facility] Work Phone: [phone] 478-532811-13-2023 Surgery Postoperative evaluation and management note* Brief Op Note - Gabriel Saeed MD - 01/17/2023 3:49 PM EST Aniyah Hodgson ([id number]) PRE OPERATIVE DIAGNOSIS Kyphosis of thoracic region, unspecified kyphosis type [M40.204] POST OPERATIVE DIAGNOSIS Post-Op Diagnosis Codes: * Kyphosis of thoracic region, unspecified kyphosis type [M40.204] PROCEDURE PERFORMED Procedure(s) (LRB): FUSION POSTERIOR THORACIC T2-L2 (Midline) FUSION POSTERIOR LUMBAR (Midline) FUSION POSTERIOR LUMBAR EACH ADDL INTERSPACE ADD-ON PX (Midline) INSERTION SPINAL INSTRUMENTATION POSTERIOR SEGMENTAL ADD-ON PX (IP ONLY) (Midline) OSTEOTOMY SPINE 3 COLUMNS POSTERIOR APPROACH 1 VERTEBRAL SEGMENT LUMBAR (Midline) ASSISTANCE STEREOTACTIC NAVIGATION SPINAL ADD-ON PX (Midline) PRIMARY CLOSURE Yes INTRAOPERATIVE FINDINGS No significant abnormalities SURGEON Surgeon(s) and Role: * Juan Rankin MD - Primary * KATHERYN Bolton - Assisting ANESTHESIOLOGIST Anesthesiologist: Link Witt MD SITE SPECIALIST: Eve Caban APRN-SITE SPECIALIST Neck Band Maker: JOSH Gonzalez SURGICAL STAFF Hydrodynamics Teacher: Emilia Young RN Relief Hydrodynamics Teacher: Dahlia Fraga RN Relief Scrub: Wiliam Voss Fellow: Gabriel Saeed MD Front Office Manager: Gonzalo Adame COMPLICATIONS None ESTIMATED BLOOD LOSS 1000 ml SPECIMENS No specimen sent * No specimens in log * Gabriel Saeed MD January 17, 2023 3:49 PM [facility]11-13-2023 Progress note* Certification - Jared Venegas DO - 01/17/2023 7:05 AM EST I certify that this patient requires inpatient services at this time. I anticipate the expected length of stay will include at least two midnights. Inpatient services are due to the following medicalconcerns posterior spinal fusion. Plans for post hospitalization care will be discharge to home. [facility]11-13-2023 History and physical note* Jared Venegas DO - 01/17/2023 7:03 AM EST PERIOPERATIVE SURGICAL HISTORY AND PHYSICAL UPDATE Pre-op Diagnoses: No chief complaint on file. Procedure(s): T2-L2 posterior spinal fusion Surgeon(s): Surgeon(s) and Role: Juan Rankin MD History and Physical Update: Ms. Hodgson denies any significant changes to health or medications since last office visit on 05/27/22 and 11/22/22. She also denies ED visits, chest pain, dyspnea, fevers, chills, nausea, vomiting, anddiarrhea. Pulse 66, temperature 98.6 F (37 C), temperature source Oral, resp. rate 16, height 1.753 m (5' 9), weight 72 kg (158 lb 12.8 oz), SpO2 100 %. Gen: She is lying in bed NAD, conversant, A&Ox3 HEENT: NCAT, PERRLA Chest: no lesions, deformities, symmetric chest rise/fall Ext: wwp, no c/c, no edema. Peripheral pulses 2+ I have reviewed Ms. Hodgson's medical, surgical and other pertinent history, and I have updated the medication and allergy information in the computerized patient record. I have examined the patient, reviewed the previous H&P completed on date (01/03/23) with changes noted above. The surgical procedure was explained and the patient's questions were answered. Plan is to proceed to OR as planned today. Jared Venegas DO Orthopedic Surgery Resident [facility]11-13-2023 History and physical note* Jared Venegas DO - 01/17/2023 7:03 AM EST PERIOPERATIVE SURGICAL HISTORY AND PHYSICAL UPDATE Pre-op Diagnoses: No chief complaint on file. Procedure(s): T2-L2 posterior spinal fusion Surgeon(s): Surgeon(s) and Role: Juan Rankin MD History and Physical Update: Ms. Hodgson denies any significant changes to health or medications since last office visit on 05/27/22 and 11/22/22. She also denies ED visits, chest pain, dyspnea, fevers, chills, nausea, vomiting, anddiarrhea. Pulse 66, temperature 98.6 F (37 C), temperature source Oral, resp. rate 16, height 1.753 m (5' 9), weight 72 kg (158 lb 12.8 oz), SpO2 100 %. Gen: She is lying in bed NAD, conversant, A&Ox3 HEENT: NCAT, PERRLA Chest: no lesions, deformities, symmetric chest rise/fall Ext: wwp, no c/c, no edema. Peripheral pulses 2+ I have reviewed Ms. Hodgson's medical, surgical and other pertinent history, and I have updated the medication and allergy information in the computerized patient record. I have examined the patient, reviewed the previous H&P completed on date (01/03/23) with changes noted above. The surgical procedure was explained and the patient's questions were answered. Plan is to proceed to OR as planned today. Jared Venegas, Orthopedic Surgery Resident documented in this [facility] Nurse Surgical operation note* Dalila Medel RN - 01/17/2023 5:47 AM EST 529 Patient arrived for pre-assessment for surgery with Dr. Rankin and Dr. Burton. Permission granted to speak freely in front of visitor. Dalila Medel RN [facility]11-13-2023 Nurse Note* Dalila Medel RN - 01/17/2023 5:47 AM EST 05 Patient arrived for pre-assessment for surgery with Dr. Rankin and Dr. Burton. Permission granted to speak freely in front of visitor. Dalila Medel RN documented in [facility] History and physical note* Nichol Yang, - 01/03/2023 10:45 AM EDT History of Present Illness Ms. Hodgson is a 22 y.o. female is being evaluated in [facility] due to her medical condition(s) as outlined below, which increases her risk for perioperative complications. 1. Preop exam for internal medicine 2. Kyphosis of thoracic region, unspecified kyphosis type The status of the above medical conditions are relatively stable and details are further outlined below Name: Aniyah Hodgson Date of Surgery: 01/17/2023 Surgeon: Dr. Rankin Pre-Op Diagnosis: thoracolumbar kyphosis Planned Procedure: FUSION POSTERIOR THORACIC T2-L2 - Midline FUSION POSTERIOR LUMBAR - Midline FUSION POSTERIOR LUMBAR EACH ADDL INTERSPACE ADD-ON PX - Midline Do you take Aspirin? no Do you take anti-coagulations? no Parenteral Access: no ANESTHESIA/AIRWAY Anesthesia Alert : emergence delirium Personal history of problems related to anesthesia (ex.Malignant Hyperthermia): Reports being emotional coming out of anesthesia Family History of problems related to anesthesia (ex.Malignant Hyperthermia: no Pacer/AICD: no Glaucoma: no Beta Taina: no Diabetic Mellitus: no PATRICIA: no STOP-BANG Risk Assessment (3 or more YES responses is high risk) Do you snore - No Are you frequently tired during the day? - No Have you been observed gasping or choking while asleep? - No Do you have high blood pressure? - No Age more than 50? - No Gender male? - No Neck circumference greater than 40 cm? - No Neck Circumference (cm): 32 BMI more then 35? - No Body mass index is 23.28 kg/m . Mallampati class - 1 TM Distance - 3 FB Oral Opening - 3 FB Teeth - normal dentition for age Cervical range of motion - not limited Neck circumference - Neck Circumference (cm): 32 Allergies and adverse drug reactions Allergies Allergen Reactions Amoxicillin-Pot Clavulanate Nausea and Vomiting Other reaction(s): Mental Status Change Patient states she was punching things and didn't know where she was Anesthesia/Airway A/P - Anesthesia Alerts as above if applicable CARDIOVASCULAR Patient denies a history of cardiac events or CA. Denies chest pain with ambulation or ADLs around the house. Denies palpitations, denies LE edema, denies orthopnea Functional status - METS: Moderate: 4-7 METS functional status. 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 Cardiovascular A/P - Pre-operative Risk Evaluation: Patient Meets the Following RCRI Criteria (RCRI): None: 0 criteria suggesting a 3.9% risk of major cardiac events or within 30 days. Aniyah Hodgson is at a Low risk based on the RCRI above. Patient can achieve METS > 4. Per ACC/AHAguidelines, the patient requires no further testing at this time. CARDIAC TESTING: EKG (Performed in clinic today and scanned in the chart): Normal sinus rhythm with a HR of 64. No LVH. No ST changes noted as interpreted by me PULMONARY Social History Tobacco Use Smoking Status Former Types: Cigarettes Quit date: 12/01/2022 Years since quittin.0 Smokeless Tobacco Never Does the patient Vape? no Pulmonary A/P - Tobacco use: quit 6 weeks ago. Patient education material for tobacco and wound healing given and reviewed. Encouraged patient to stop smoking ideally now and atleast 2 weeks prior to surgery SUBSTANCE ABUSE Social History Substance and Sexual Activity Alcohol Use Not on file Social History Substance and Sexual Activity Drug Use Not on file Substance Abuse A/P - Pt denies any hx of substance abuse. CLOTTING/BLEEDING History of DVT/PE - no Are you a Jehovah Witness? - no In case of surgeons plan or unforseen emergency, are you okay with receiving blood products? - yes Clotting Bleeding A/P - Pt denies any hx of clotting/bleeding disorder. Recommend standard DVT/PE prophylaxis postoperatively. DIABETES Diabetes A/P - No results found for: HGBA1C ADDITIONAL DIAGNOSES OF CONCERN Kyphosis: surgical management Ganglion cyst: removal surgically IUD removed - will get DEPOT shot today MEDICATIONS Current Outpatient Medications Medication Sig cyanocobalamin 1000 MCG tablet Take 1 tablet by mouth at bedtime. Cyclobenzaprine 10 MG tablet Take 1 tablet by mouth as needed. Gabapentin 300 MG capsule Take 1 capsule by mouth 3 times daily. hydroCODone-acetaminophen 5-325 MG tablet Take 1 tablet by mouth as needed. Meloxicam 7.5 MG tablet Take 1 tablet by mouth 2 times daily. traZODone 50 MG tablet Take 1 tablet by mouth at bedtime. Medication A/P - Instructions for preoperative medications given to the patient in AVS. LABS Orders Placed This Encounter SCREEN: MRSA/MSSA XR CHEST PA AND LATERAL PROTIME-INR NICOTINE SCREEN URINE CBC, EDIF, PLATELET CHEM 6 (LYTES, BUN CREA) PTT WITH MIXING STUDY CBC AND ELECTRONIC DIFF PTT W/MIXING STUDY PERF ONLY EXTRA LIGHT BLUE TOP DOUBLE SPIN PREPARE TO TRANSFUSE OR RED BLOOD CELLS: 2 Units Type and Cross -Preadmission HCG QUALITATIVE, URINE URINALYSIS REFLEX TO CULTURE URINALYSIS REFLEX TO CULTURE PERFORMABLE EXTRA MICRO PA ECG, CLINIC PERFORMED Lab A/P - Lab Results Component Value Date SODIUM 138 01/03/2023 POTASSIUM 4.1 01/03/2023 CHLORIDE 106 01/03/2023 CO2 25 01/03/2023 BUN 11 01/03/2023 CREATSERUM 0.72 01/03/2023 Lab Results Component Value Date WBC 5.47 01/03/2023 HGB 14.0 01/03/2023 HCT 43.4 01/03/2023 PLATELET 193 01/03/2023 MCV 93.9 01/03/2023 Lab Results Component Value Date INR 1.0 01/03/2023 PT 12.7 01/03/2023 MSSA/MRSA: pending UA: negative Chest xray (01/03/2023): Personally reveiwed films which showed no acute pulmonary edema or pnueumonia. Normal lung markings. Does pt meet criteria for liberalized NPO? no. Pt is Medically OPTIMIZED to proceed with scheduled surgery at the time of this visit. Patient was instructed to let her surgeon know of any hospitalizations or changes in medical conditions following this visit. Above recommendations were discussed with the patient, and patient understood and agreed with the plan outlined above. Thank you for allowing us to participate in the care of Aniyah Hodgson. Total time spent on the day of patient's visit was 51 minutes. This includes but is not limited to time spent preparing to see the patient, precharting, reviewing outside medical records, time spent in the patient's room doing a history and physical exam along with medication education, ordering lab test and requesting medical information as well as interpreting lab results DO [place] [facility] Perioperative Clinic [facility] [address] Review of Systems (OSUROS) Review of Systems Constitutional: Negative for fatigue and fever. Respiratory: Negative for cough and shortness of breath. Cardiovascular: Negative for chest pain, palpitations and leg swelling. Genitourinary: Negative for dysuria. All other pertinent positives related to anesthesia history and cardiac history as in the note above. Physical Examination (PHYSEXAM) Blood pressure 108/64, pulse 64, temperature 98.1 F (36.7 C), resp. rate 16, height 1.74 m (5' 8.5), weight 70.5 kg (155 lb 6.4 oz), SpO2 99 %. Physical Exam Constitutional: Appearance: Normal appearance. HENT: Head: Normocephalic. Mouth/Throat: Mouth: Mucous membranes are moist. Eyes: Conjunctiva/sclera: Conjunctivae normal. Cardiovascular: Rate and Rhythm: Normal rate and regular rhythm. Heart sounds: Normal heart sounds. Pulmonary: Effort: Pulmonary effort is normal. Breath sounds: Normal breath sounds. No wheezing or rales. Abdominal: General: There is no distension. Tenderness: There is no abdominal tenderness. Musculoskeletal: Cervical back: Normal range of motion and neck supple. Skin: General: Skin is warm. Neurological: General: No focal deficit present. Mental Status: She is alert and oriented to person, place, and time. Mental status is at baseline. Psychiatric: Mood and Affect: Mood normal. Behavior: Behavior normal. Thought Content: Thought content normal. She reports no FMH of cancer, diabetes, heart disease or HTN Past Surgical History: Procedure Laterality Date EXCISION GANGLION CYST SKIN BIOPSY mole removal TONSILLECTOMY ADENOIDECTOMY Patient Care Team: Toni Barrera MD as PCP - General (Family Medicine) No family history on file. Social History Socioeconomic History Marital status: Single Tobacco Use Smoking status: Former Types: Cigarettes Quit date: 12/01/2022 Years since quittin.0 Smokeless tobacco: Never [facility]10-30-2023 History and physical note* Nichol Yang DO - 01/03/2023 10:45 AM EDT History of Present Illness Ms. Hodgson is a 22 y.o. female is being evaluated in OPAC due to her medical condition(s) as outlined below, which increases her risk for perioperative complications. 1. Preop exam for internal medicine 2. Kyphosis of thoracic region, unspecified kyphosis type The status of the above medical conditions are relatively stable and details are further outlined below Name: Aniyah Hodgson Date of Surgery: 01/17/2023 Surgeon: Dr. Rankin Pre-Op Diagnosis: thoracolumbar kyphosis Planned Procedure: FUSION POSTERIOR THORACIC T2-L2 - Midline FUSION POSTERIOR LUMBAR - Midline FUSION POSTERIOR LUMBAR EACH ADDL INTERSPACE ADD-ON PX - Midline Do you take Aspirin? no Do you take anti-coagulations? no Parenteral Access: no ANESTHESIA/AIRWAY Anesthesia Alert : emergence delirium Personal history of problems related to anesthesia (ex.Malignant Hyperthermia): Reports being emotional coming out of anesthesia Family History of problems related to anesthesia (ex.Malignant Hyperthermia: no Pacer/AICD: no Glaucoma: no Beta Taina: no Diabetic Mellitus: no PATRICIA: no STOP-BANG Risk Assessment (3 or more YES responses is high risk) Do you snore - No Are you frequently tired during the day? - No Have you been observed gasping or choking while asleep? - No Do you have high blood pressure? - No Age more than 50? - No Gender male? - No Neck circumference greater than 40 cm? - No Neck Circumference (cm): 32 BMI more then 35? - No Body mass index is 23.28 kg/m . Mallampati class - 1 TM Distance - 3 FB Oral Opening - 3 FB Teeth - normal dentition for age Cervical range of motion - not limited Neck circumference - Neck Circumference (cm): 32 Allergies and adverse drug reactions Allergies Allergen Reactions Amoxicillin-Pot Clavulanate Nausea and Vomiting Other reaction(s): Mental Status Change Patient states she was punching things and didn't know where she was Anesthesia/Airway A/P - Anesthesia Alerts as above if applicable CARDIOVASCULAR Patient denies a history of cardiac events or CA. Denies chest pain with ambulation or ADLs around the house. Denies palpitations, denies LE edema, denies orthopnea Functional status - METS: Moderate: 4-7 METS functional status. 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 Cardiovascular A/P - Pre-operative Risk Evaluation: Patient Meets the Following RCRI Criteria (RCRI): None: 0 criteria suggesting a 3.9% risk of major cardiac events or within 30 days. Aniyah Hodgson is at a Low risk based on the RCRI above. Patient can achieve METS > 4. Per ACC/AHAguidelines, the patient requires no further testing at this time. CARDIAC TESTING: EKG (Performed in clinic today and scanned in the chart): Normal sinus rhythm with a HR of 64. No LVH. No ST changes noted as interpreted by me PULMONARY Social History Tobacco Use Smoking Status Former Types: Cigarettes Quit date: 12/01/2022 Years since quittin.0 Smokeless Tobacco Never Does the patient Vape? no Pulmonary A/P - Tobacco use: quit 6 weeks ago. Patient education material for tobacco and wound healing given and reviewed. Encouraged patient to stop smoking ideally now and atleast 2 weeks prior to surgery SUBSTANCE ABUSE Social History Substance and Sexual Activity Alcohol Use Not on file Social History Substance and Sexual Activity Drug Use Not on file Substance Abuse A/P - Pt denies any hx of substance abuse. CLOTTING/BLEEDING History of DVT/PE - no Are you a Jehovah Witness? - no In case of surgeons plan or unforseen emergency, are you okay with receiving blood products? - yes Clotting Bleeding A/P - Pt denies any hx of clotting/bleeding disorder. Recommend standard DVT/PE prophylaxis postoperatively. DIABETES Diabetes A/P - No results found for: HGBA1C ADDITIONAL DIAGNOSES OF CONCERN Kyphosis: surgical management Ganglion cyst: removal surgically IUD removed - will get DEPOT shot today MEDICATIONS Current Outpatient Medications Medication Sig cyanocobalamin 1000 MCG tablet Take 1 tablet by mouth at bedtime. Cyclobenzaprine 10 MG tablet Take 1 tablet by mouth as needed. Gabapentin 300 MG capsule Take 1 capsule by mouth 3 times daily. hydroCODone-acetaminophen 5-325 MG tablet Take 1 tablet by mouth as needed. Meloxicam 7.5 MG tablet Take 1 tablet by mouth 2 times daily. traZODone 50 MG tablet Take 1 tablet by mouth at bedtime. Medication A/P - Instructions for preoperative medications given to the patient in AVS. LABS Orders Placed This Encounter SCREEN: MRSA/MSSA XR CHEST PA AND LATERAL PROTIME-INR NICOTINE SCREEN URINE CBC, EDIF, PLATELET CHEM 6 (LYTES, BUN CREA) PTT WITH MIXING STUDY CBC AND ELECTRONIC DIFF PTT W/MIXING STUDY PERF ONLY EXTRA LIGHT BLUE TOP DOUBLE SPIN PREPARE TO TRANSFUSE OR RED BLOOD CELLS: 2 Units Type and Cross -Preadmission HCG QUALITATIVE, URINE URINALYSIS REFLEX TO CULTURE URINALYSIS REFLEX TO CULTURE PERFORMABLE EXTRA MICRO PA ECG, CLINIC PERFORMED Lab A/P - Lab Results Component Value Date SODIUM 138 01/03/2023 POTASSIUM 4.1 01/03/2023 CHLORIDE 106 01/03/2023 CO2 25 01/03/2023 BUN 11 01/03/2023 CREATSERUM 0.72 01/03/2023 Lab Results Component Value Date WBC 5.47 01/03/2023 HGB 14.0 01/03/2023 HCT 43.4 01/03/2023 PLATELET 193 01/03/2023 MCV 93.9 01/03/2023 Lab Results Component Value Date INR 1.0 01/03/2023 PT 12.7 01/03/2023 MSSA/MRSA: pending UA: negative Chest xray (01/03/2023): Personally reveiwed films which showed no acute pulmonary edema or pnueumonia. Normal lung markings. Does pt meet criteria for liberalized NPO? no. Pt is Medically OPTIMIZED to proceed with scheduled surgery at the time of this visit. Patient was instructed to let her surgeon know of any hospitalizations or changes in medical conditions following this visit. Above recommendations were discussed with the patient, and patient understood and agreed with the plan outlined above. Thank you for allowing us to participate in the care of Aniyah Hodgson. Total time spent on the day of patient's visit was 51 minutes. This includes but is not limited to time spent preparing to see the patient, precharting, reviewing outside medical records, time spent in the patient's room doing a history and physical exam along with medication education, ordering lab test and requesting medical information as well as interpreting lab results DO [facility] [address] [facility] Review of Systems (OSUROS) Review of Systems Constitutional: Negative for fatigue and fever. Respiratory: Negative for cough and shortness of breath. Cardiovascular: Negative for chest pain, palpitations and leg swelling. Genitourinary: Negative for dysuria. All other pertinent positives related to anesthesia history and cardiac history as in the note above. Physical Examination (PHYSEXAM) Blood pressure 108/64, pulse 64, temperature 98.1 F (36.7 C), resp. rate 16, height 1.74 m (5' 8.5), weight 70.5 kg (155 lb 6.4 oz), SpO2 99 %. Physical Exam Constitutional: Appearance: Normal appearance. HENT: Head: Normocephalic. Mouth/Throat: Mouth: Mucous membranes are moist. Eyes: Conjunctiva/sclera: Conjunctivae normal. Cardiovascular: Rate and Rhythm: Normal rate and regular rhythm. Heart sounds: Normal heart sounds. Pulmonary: Effort: Pulmonary effort is normal. Breath sounds: Normal breath sounds. No wheezing or rales. Abdominal: General: There is no distension. Tenderness: There is no abdominal tenderness. Musculoskeletal: Cervical back: Normal range of motion and neck supple. Skin: General: Skin is warm. Neurological: General: No focal deficit present. Mental Status: She is alert and oriented to person, place, and time. Mental status is at baseline. Psychiatric: Mood and Affect: Mood normal. Behavior: Behavior normal. Thought Content: Thought content normal. She reports no FMH of cancer, diabetes, heart disease or HTN Past Surgical History: Procedure Laterality Date EXCISION GANGLION CYST SKIN BIOPSY mole removal TONSILLECTOMY ADENOIDECTOMY Patient Care Team: Toni Barrera MD as PCP - General (Family Medicine) No family history on file. Social History Socioeconomic History Marital status: Single Tobacco Use Smoking status: Former Types: Cigarettes Quit date: 12/01/2022 Years since quittin.0 Smokeless tobacco: [facility]* Patient Instructions* Nilsa Anguiano LPN - 01/03/2023 10:45 AM EDT PRIOR TO SURGERY INSTRUCTIONS Please follow these instructions prior to surgery to ensure that your surgery goes well and minimize complications THE FOLLOWING MEDICATIONS LABS, STUDIES, AND CONSULTATIONS WERE ORDERED TODAY: Orders Placed This Encounter SCREEN: MRSA/MSSA XR CHEST PA AND LATERAL PROTIME-INR NICOTINE SCREEN URINE CBC, EDIF, PLATELET CHEM 6 (LYTES, BUN CREA) PTT WITH MIXING STUDY CBC AND ELECTRONIC DIFF PTT W/MIXING STUDY PERF ONLY EXTRA LIGHT BLUE TOP DOUBLE SPIN PREPARE TO TRANSFUSE OR RED BLOOD CELLS: 2 Units Type and Cross -Preadmission HCG QUALITATIVE, URINE URINALYSIS REFLEX TO CULTURE URINALYSIS REFLEX TO CULTURE PERFORMABLE EXTRA MICRO PA ECG, CLINIC PERFORMED Pre-operative Patient Medication Instructions: - Only take medications on the morning of surgery with a sip of water. - Please follow this sheet below for instructions on which medications to hold prior to surgery Current Outpatient Medications Medication Sig Instructions cyanocobalamin 1000 MCG tablet Take 1 tablet by mouth at bedtime. Hold 2 weeks prior to surgery Cyclobenzaprine 10 MG tablet Take 1 tablet by mouth as needed. Okay to take as needed Gabapentin 300 MG capsule Take 1 capsule by mouth 3 times daily. Take the morning of surgery hydroCODone-acetaminophen 5-325 MG tablet Take 1 tablet by mouth as needed. Okay to take as needed Meloxicam 7.5 MG tablet Take 1 tablet by mouth 2 times daily. Hold 2 weeks prior to surgery traZODone 50 MG tablet Take 1 tablet by mouth at bedtime. Take the night before surgery If you use an Inhaler/Inhalers on a daily basis, then use your inhaler on the morning of surgery. - Do NOT take Herbal Medication (including multi-vitamin, fish oil (Parks-3), garlic, Glucosamine -Chondroitin ,gingko, ginseng, Vitamin E, probiotics) vitamins and supplements 2 weeks before surgery. - Do NOT take Excedrin, ibuprofen, Advil, Voltaren (Diclofenac), Motrin, naproxen, or Aleve, Mobic (Meloxicam) for the 7 days before surgery. Acetaminophen (Tylenol) is ok to take up until the day ofsurgery. - DO not Vape and avoid marijuana or any illicit drug use atleast 24 hrs prior to the surgery. - If you do smoke, we recommend that you quit smoking at least 2 weeks prior to surgery as nicotineproducts can impair wound healing. Your anesthesia team recommends that you have no nicotine in your system for at least 24 hours prior to anesthesia Patient Pre-Operative Instructions: Diet Instructions: -NO food or drink after 11 pm the night before surgery except for enough water to take your medications. (No Candy, Mints and/or Gum). If your surgeon has given you special shakes to take prior to surgery, it is okay to take them and follow those instructions - Do NOT wear any hearing aids, jewelry, watches, rings, hairpieces, makeup, glasses or contact lenses with you into your surgery. - Shower the night before and the morning of surgery. To lessen your chance of getting an infection after your surgery, you will need to wash your skin with a special soap called 4% Chlorhexidine Gluconate (CHG) before your surgery. Your nurse has givenyou CHG soap today and written instructions; Getting Your Skin Ready for Surgery. Please review the instructions carefully prior to your surgery. - Do NOT shave, or pluck hair from anywhere near the surgical site one week prior to surgery. - Comfort your teeth and rinse your mouth the morning of surgery. - Do NOT bring your dentures or partials with you into surgery. They may be lost. Give them to someone to bring to you after surgery. Today we completed a nasal swab culture to check for a specific bacteria called MRSA or MSSA. This is a bacteria that can live in the nose and cause no symptoms or illness. If your culture is positive, we will contact you and send in a prescription for mupirocin to your pharmacy. You will be instructed to rub the ointment into each of your nostrils twice a day for 5 days prior to your surgery. Your nurse will also swab your nose with a betadine swab in the preoperative area on your day of surgery. Please notify the nurse if you have an iodine allergy. If you become ill, develop a fever, cough, or any type of infection within 14 days of your scheduled surgery, please call the surgeon's office. You may need to have your surgery moved, as we would not want to put you at risk for complications due to an illness. If you are hospitalized or placed on Antibiotics within 1 week of surgery, please notify our team and your surgeon's office immediately. - If you have Sleep apnea and have a CPAP or BIPAP, then bring your CPAP mask and machine with you to the hospital. Please contact Medical Information Management Department for all records requests. [phone] [facility] Preoperative Testing Clinic Loren CAMPBELL/CARLY [facility] History of Present illness Narrative* Tod Hayes MD - 12/21/2022 3:49 PM EDT Chief Complaint Patient presents with: Pain: Severe back pain- patient's surgeon is in [place]. Unable to get into pain management. And unable to find relief. PT advised PT ER won't do anything for her otherwise she'd go there. HPI Aniyah Hodgson is a 22 year old female who presents here today for Above Complaints.. 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 Seeing Dr. Amber Salguero with [facility] and is scheduled for thoracic posterior fixation fusion with multiple Ivan osteotomies surgery on01/17 with their office. They recommended PT back in November for strengthening of her back. She is also following up with pain management here in [place]. They are treating her with Beaumont for pain. Today, patient is complaining of severe back which started about 4 days ago without injury. Starts around her neck and radiates down to lower back. Taking her [place] at bedtime to help with sleep. Nottaking anything OTC for pain now. States she has tried OTC NSAIDs and lidocaine patches without improvement in pain. On Meloxicam and Zanaflex as prescribed by pain management without improvement in symptoms. Started PT on 11/22 and is seeing them 2x per week for 4 weeks. States that this has not helped withher pain or ROM. Feels like this is worsening her pain. Last OV with pain management was. States that she missed an appointment with pain management Daniella Matamoros about 2 months ago. Has appointment for follow up on Tuesday. Denies fever/chills, loss of bowel/bladder control, saddle anesthesia, LE weakness. Past medical history, appointments, medications, allergies reviewed. Previous Medical History PAST MEDICAL HISTORY Diagnosis Date SONIYA (generalized anxiety disorder) 04/21/2020 Kyphosis of thoracic region 03/24/2022 Ovarian cyst Thoracic spine pain 04/29/2020 Well adult exam 04/21/2020 Last done: 04/21/2020 Previous Surgical History PAST SURGICAL HISTORY Procedure Laterality Date CYST/MOLE REMOVAL Left 2003 ganglion cyst IUD REMOVAL 08/02/2022 surgically removed SKIN BX, 1 LESION 2004 mole removal TYMPANOSTOMY GENERAL ANESTHESIA Bilateral 2008 Family History FAMILY HISTORY Problem Relation Age of Onset Ovarian cancer Maternal Grandmother Ovarian cancer Paternal Grandmother Patient Allergies ALLERGIES Allergen Reactions Augmentin [Amoxicil* Mental Status Change Patient states she was punching things and didn't know where she was Current Medications Current Outpatient Medications on File Prior to Visit Medication Sig cyanocobalamin (VITAMIN B-12) 1,000 mcg tab Take 1 tablet by mouth once daily. traZODone (DESYREL) 50 mg tablet Take 1 tablet by mouth daily at bedtime. tiZANidine (ZANAFLEX) 4 mg tablet Take 4 mg by mouth daily at bedtime. meloxicam (MOBIC) 7.5 mg tablet Take by mouth. hydrocodone/acetaminophen (VICODIN ORAL) Take 1 tablet by mouth as needed. No current facility-administered medications on file prior to visit. Social History Social History Tobacco Use Smoking status: Former Packs/day: 0.50 Years: 4.00 Additional pack years: 0.00 Total pack years: 2.00 Types: Cigarettes Quit date: 12/05/2022 Years since quittin.0 Smokeless tobacco: Never Tobacco comments: 2 cigs per day Vaping Use Vaping Use: Never used Substance Use Topics Alcohol use: Never Drug use: Never Review of Symptoms REVIEW OF SYSTEMS See HPI EXAM: BP 118/68 Pulse 60 Resp 16 Wt 69.9 kg (154 lb 3.2 oz) LMP 06/28/2022 (Approximate) SpO2 98% BMI 23.92 kg/m General Appearance: Well appearing, alert, in no acute distress, well-hydrated, well nourished.. Skin: Skin color, texture, turgor normal, no suspicious rashes or lesions. Back:no pain to palpation of vertebrae, reflexes are 2+ and symmetric, motor and sensory appear to be normal, no evidence of scoliosis. Positive for TTP over thoracic and lumbar paraspinal muscle TTP. Kyphosis in thoracic spine. Refusing ROM testing due to pain. Health Maintenance List Covid-19 Vaccine(1) Never done Meningococcal B Vaccine: Consider Based On Risk(1 of 2 - Patient Seeks Protection) Never done Hepatitis C Screening Never done HIV Screening Never done Depression Assessment Never done Influenza Vaccine(1) Never done Pap Testing due on 06/07/2025 DTaP,Tdap,Td Vaccine(10 - Td or Tdap) due on 10/22/2031 Hepatitis B Vaccine Completed HPV Vaccine Completed ASSESSMENT/PLAN: 1. Thoracic spine pain - ICD9: 724.1, ICD10: M54.6 (primary diagnosis) Chronic pain 2/2 kyphosis which is worsening. Patient already on NSAID, muscle relaxer, and narcotics through pain management and is seeing PT. Discussed I cannot prescribe her narcotics here as it would violate controlled substance agreement with pain management. Recommended she continue PT and home exercises, ice/heat, rest, and contact pain management for earlier OV. Red flags for re-assessment reviewed with patient in detail. 2. Kyphosis of thoracic region, unspecified kyphosis type - ICD9: 737.10, ICD10: M40.204 See above. Keep appointment with surgery on 01/17. Tod Hayes MD [facility] Miscellaneous Notes* Telephone Encounter - Janis Ordoñez RN - 11/25/2022 11:56 AM EDT Called and left a voicemail for the Patient to call back and ask for a nurse to receive the providers message. Janis Ordoñez RN * Telephone Encounter - Dorita Larkin APRN.CNP - 11/25/2022 11:45 AM EDT Rx sent. * Telephone Encounter - Sabrina Shrestha RN - 11/25/2022 11:23 AM EDT Patient returns call and message reviewed that Vitamin B-12 is low. Patient requests that a prescription be sent to [facility] for medication as patient doesn't work and she isn't able to afford medication but Medicaid will pay for it. Sabrina Shrestha RN documented in this encounterFair[facility] Center09-21-2023 Miscellaneous Notes* Telephone Encounter - John Perales Cma - 11/25/2022 9:13 AM EDT Left message for patient to return call to office John Perales Cma * Telephone Encounter - Dorita Larkin APRN.CNP - 11/25/2022 9:06 AM EDT Please let patient know her vitamin b12 is low. Patient should start vitamin b12 1000 mcg daily. documented in this encounterFairfield [facility] Center09-18-2023 History of Present illness Narrative* Amber Salguero Jr., PAC - 11/22/2022 1:30 PM EDT 22 y/o Aniyah Hodgson is [facility]. This is in follow-up to her visit 05/27/[address] Rankin. Patient has a known history of progressive thoracic kyphosis. As attempted injections with temporary relief She is enrolling in therapy starting tomorrow up it [facility]. She is scheduled for thoracic posterior fixation fusion with multiple Ivan osteotomies 01/17/[address] Rankin. Scheduled for OPAC 01/03/2023 Patient is a [id number] mother. She is accompanied today by her grandmother as well as [id number]. Patient smokes half pack of cigarettes daily. She lives with her boyfriend. She is taking meloxicam trazodone [place] 5/325 judiciously. On average 4-5 tablets weekly for the past 4 months. Under the care of [facility]. She also attempted Aleve as an NSAID in the past which did not help. Patient denies any bowel bladder changes. She does report some burning dysesthetic pain at times inher legs in the evenings while resting. Does not have any these symptoms throughout the day She is relatively active she feeds her animals does the chores. They have couple go to pigs. She also takes care of her 3-year-old son. They reside in [facility] in the [facility] She states it is approximally [address] [facility] 10/14. Oswestry low Back score today 42. No past medical history on file. No past surgical history on file. Allergies Allergen Reactions Amoxicillin-Pot Clavulanate Nausea and Vomiting Other reaction(s): Mental Status Change Patient states she was punching things and didn't know where she was Vitals: 11/22/22 1340 Pulse: 63 Temp: 96.9 F (36.1 C) SpO2: 96% BMI 21.84 Musculoskeletal exam: Patient ambulates in a narrow based steady fashion upper lower extremity flexes within normal limits. Increased thoracic kyphosis noted. She has tenderness today primarily at the apex of the curve / parascapular discomfort no thoracic percussion tenderness no thoracic sensory level neck is supple. She is able to toe and heel stand straight leg raise negative ankle clonus absent no groin pain today with log rolling of the hips. Bicep tricep brachioradialis patella Achilles reflex +2. She ambulates without assistive device in the community. Alert orient x3 nontoxic in appearance skin without rashes or lesions Radiographs: AP and lateral scoliosis x-rays were obtained interpreted independently. Kyphosis once again from T1-L2 measures 90 degree. Majority of kyphosis comes from T3-T10 region. No osteolytic or blastic lesions. Lumbar radiographs AP and lateral as well as right left oblique views were ordered obtained interpreted. No acute fractures. No spondylitic spondylolisthesis. She has 5 segmental lumbar vertebrae. Assessment: -22-year-old female with progressive thoracic kyphosis-symptomatic -nicotine addiction -chronic pain Recommendations: -I have discussed the above findings today with patient as well as her grandmother. It is paramountthat she have physical therapy prior to surgery for strengthening conditioning purposes. -she is encouraged to follow up with her PCP regarding pharmacologic assistance for smoking cessation -OPAC scheduled for 01/03/2023 ( nicotine screen ordered), surgery 01/17/2023 -patient has been informed she will likely require a 4 or 5 day postoperative stay after the fusion. She will need to be nicotine free 6 weeks prior surgery as well as 90 days postoperatively to maximize early bone graft incorporation and subsequent solitary to the fusion which is associated with good clinical outcomes once a solid spine arthrodesis has been obtained -all of her and her family's questions answered to their satisfaction. They are amenable to this treatment algorithm M-Modal Voice Recognition System was used to compose patient's note. Attempts have been made to review dictation as it is transcribed, on occasion the spoken word may be misinterpreted by the technology, leading to omissions or inappropriate words or phrases. documented in this encounterOS[facility] History of Present illness Narrative* Susie Lawson RT(R) - 09/10/2022 1:40 PM EDT Radiology Service Progress Note PATIENT NAME: Aniyah Hodgson DATE OF SERVICE: September 10, 2022 TIME: 1:48 PM PATIENT IDENTITY VERIFICATION COMPLETED USING TWO (2) IDENTIFIERS: Name and Date of confirmedby patient verbally. FALL SCREENING: Has the patient had 2 falls in the last year or 1 fall with injury or currently using an Ambulatory Assistive Device (Walker, Cane, Wheelchair, Crutches, etc.)? No PATIENT GENDER DATA: Female. status: : No status: NO. PATIENT RELEVANT IMPLANT DATA REVIEWED: Yes RADIOLOGY DEPARTMENT: MR; Exam(s) Completed: Lower MSK: Forefoot/Midfoot, right PERIPHERAL IV DATA: Not applicable SIGNED BY: RT Trevon(Papo) September 10, 2022 1:48 PM documented in this encounterFairfield [facility] Center06-29-2023 Miscellaneous Notes* Telephone Encounter - Jenifer Young LPN - 2022 10:18 AM EDT Patient bone stim was approved. Patient has will be receiving bone stim from dina from [facility]. Jenifer Young LPN * Telephone Encounter - Jenifer Young LPN - 08/18/2022 4:40 PM EDT Bone stimulator paperwork was completed and faxed to [facility]. Awaiting approval or denial from insurance. Called patient to inform her that form was sent and we are awaiting approval or denial from insurance. No response. Left VM. Jenifer Yougn LPN * Telephone Encounter - Janis Christianson RN - 08/17/2022 8:27 AM EDT Type of form: Bone stimulator When form is completed, fax form to fax number provided. Form has been forwarded to: Provider's desk. Provider name: Dr. Bebe Christianson RN documented in this encounterFairfield Medical Center06-20-2023 Miscellaneous Notes* Telephone Encounter - ALEX Ricks - 08/24/2022 4:09 PM EDT Behavioral Health Social Work Progress Note Patient identified for [facility] from: PCP Reason for referral: Resources Behavioral Health Resources: Psychology - talk therapy [facility] encounter type: Telephone Encounter, Riskonnectt Message Attempts to Outreach: 1 attempt Referral made: Psychology - Internal, Psychology - External Psychology-Internal referral type: Therapy Psychology-External referral type: Therapy Reason for external referral: Patient choice, Wait times at [facility] too long Final Disposition: Resources given Patient Discharged?: Yes Patient reported that caregiver was able to meet their needs today?: Yes therapist spoke to patient who was apprehensive of behavioral health services but agreed to callnumbers on list of resources that will be sent to her MyChart. ALEX Ricks-S August 24, 2022 documented in this encounterFairfield Medical Center06-20-2023 History of Present illness Narrative* Tod Hayes MD - 08/24/2022 3:26 PM EDT Chief Complaint Patient presents with: Sleep Problem: Nightmares and pain preventing her from sleeping. 4-5 months issues with sleep. Nightmares 3-4 nights weekly for 2-3 months. Reports drenched with sweat when she wakes up. HPI Aniyah Hodgson is a 21 year old female who presents here today for Above Complaints. Accompanied today by her son Riley. Patient c/o nightmares for the last 2-3 months which is interrupting her sleep. Cannot get back to sleep after waking up. States that she has dreams about being bombed or tornadoes, gory scenes, etc.Very graphic. Occurs every night or every other night. States she does not watch horror movies. Only new rx was for norco for her back pain which is prescribed by pain management. Started after her ni ghtmares. Denies recent anxiety/depression symptoms. Not taking anything OTC to help with sleep. Not seeing counselor at this time for history of anxiety. Past medical history, appointments, medications, allergies reviewed. Previous Medical History PAST MEDICAL HISTORY Diagnosis Date SONIYA (generalized anxiety disorder) 04/21/2020 Kyphosis of thoracic region 03/24/2022 Ovarian cyst Thoracic spine pain 04/29/2020 Well adult exam 04/21/2020 Last done: 04/21/2020 Previous Surgical History PAST SURGICAL HISTORY Procedure Laterality Date CYST/MOLE REMOVAL Left 2003 ganglion cyst IUD REMOVAL 08/02/2022 surgically removed SKIN BX, 1 LESION 2005 mole removal TYMPANOSTOMY GENERAL ANESTHESIA Bilateral 2009 Family History FAMILY HISTORY Problem Relation Age of Onset Ovarian cancer Maternal Grandmother Ovarian cancer Paternal Grandmother Patient Allergies ALLERGIES Allergen Reactions Augmentin [Amoxicil* Mental Status Change Patient states she was punching things and didn't know where she was Current Medications Current Outpatient Medications on File Prior to Visit Medication Sig meloxicam (MOBIC) 7.5 mg tablet Take by mouth. hydrocodone/acetaminophen (VICODIN ORAL) Take 1 tablet by mouth as needed. cyclobenzaprine (FLEXERIL) 10 mg tablet Take 1 tablet by mouth three times daily as needed for Muscle Spasm. (Patient not taking: Reported on 04/28/2020 ) No current facility-administered medications on file prior to visit. Social History Social History Tobacco Use Smoking status: Every Day Packs/day: 0.50 Years: 4.00 Pack years: 2.00 Types: Cigarettes Smokeless tobacco: Never Tobacco comments: 2 cigs per day Vaping Use Vaping Use: Never used Substance Use Topics Alcohol use: Never Drug use: Never Review of Symptoms REVIEW OF SYSTEMS See HPI EXAM: BP 108/72 Pulse 80 Resp 16 Wt 69.3 kg (152 lb 12.8 oz) LMP 06/28/2022 (Approximate) SpO2 98% BMI 23.70 kg/m General Appearance: Well appearing, alert, in no acute distress, well-hydrated, well nourished.. Skin: Skin color, texture, turgor normal, no suspicious rashes or lesions. Neck: Supple, no adenopathy; thyroid symmetric, normal size, no bruits. Lungs: Lungs clear to auscultation. No wheezing, rhonchi, rales.. Heart: RRR without murmur, gallop, or rubs. No ectopy. Health Maintenance List COVID-19 VACCINE(1) Never done PNEUMOCOCCAL(1 - PCV) Never done MENINGOCOCCAL B: Consider based on risk(1 of 2 - Risk Bexsero 2-dose series) Never done GC (GONORRHEA) SCREENING (18-) Never done HEPATITIS C SCREENING Never done HIV SCREENING Never done CHLAMYDIA SCREENING (18-) Never done DEPRESSION ASSESSMENT Never done INFLUENZA(Season Ended) due on 11/05/2022 PAP TESTING due on 06/07/2025 DTAP,TDAP,TD(9 - Td or Tdap) due on 10/22/2031 HEPATITIS B Completed HPV VACCINE Completed ASSESSMENT/PLAN: 1. Nightmares - ICD9: 307.47, ICD10: F51.5 Refer to counseling for CBT and will start patient on Prazosin qhs. Denies history of PTSD. Anxietysymptoms currently well controlled. Call in 1-2 weeks if not improving symptoms or sooner with sideeffects as discussed. - PRAZOSIN 1 MG CAPSULE - CONSULT TO [facility] Tod Hayes MD documented in this encounterFairfield Medical Center06-12-2023 Instructions* Patient Instructions* Jaxon Spence - 08/16/2022 4:19 PM EDT Would recommend firm sole sneaker vs surgical shoe. Can bello tape the third toe to the fourth toe but not sure if this would do much difference Recommend mri to evaluate great toe documented in this encounterFairfield Medical Center06-12-2023 History of Present illness Narrative* Jaxon Spence - 08/16/2022 4:05 PM EDT Consultation requested by Dr. Larkin for an opinion regarding right foot pain. My final recommendations will be communicated back to the requesting physician by way of shared Medical record or letterto requesting physician via US mail. Initial Podiatric Office Visit: Chief Complaint: This 21 year old female who presents with chief complaint:right foot pain HPI Patient presents to clinic for evaluation of right foot pain. Patient complains of pain in right great toe ipj. She states the pain in her right great toe started 4 months ago when she fell off a ladder extending her toes. She states that following her injury, she presented to the ED and had xrays taken. She was told she fractured her first, 2nd and 3rd toe. She was placed in surgical shoe and referred to foot and ankle center. She wore the surgical shoe for several months and was bello taping the 3rd toe to the 2nd toe. She informs me that she was told the fracture was healing and that there was nothing else required. She continues to have pain currently but majority of the pain is located in the right hallux ipj. She does smoke about 1/2 pack of cigarettes/day PAIN EVALUATION 08/16/2022 1547 Pain Level: 5 Pain Location: Foot-Right Description: Aching Duration Amount of Time: 4 Duration Units: Months Frequency: Continuous Intervention/Comfort measure: Medication;Relaxation No results found for: HBA1C PCP: Toni Barrera MD PAST MEDICAL HISTORY Diagnosis Date SONIYA (generalized anxiety disorder) 04/21/2020 Kyphosis of thoracic region 03/24/2022 Ovarian cyst Thoracic spine pain 04/29/2020 Well adult exam 04/21/2020 Last done: 04/21/2020 Current Outpatient Medications Medication Sig meloxicam (MOBIC) 7.5 mg tablet Take by mouth. hydrocodone/acetaminophen (VICODIN ORAL) Take by mouth. cyclobenzaprine (FLEXERIL) 10 mg tablet Take 1 tablet by mouth three times daily as needed for Muscle Spasm. (Patient not taking: Reported on 04/28/2020 ) No current facility-administered medications for this visit. ALLERGIES Allergen Reactions Augmentin [Amoxicil* Mental Status Change Patient states she was punching things and didn't know where she was PAST SURGICAL HISTORY Procedure Laterality Date CYST/MOLE REMOVAL Left 2003 ganglion cyst IUD REMOVAL 08/02/2022 surgically removed SKIN BX, 1 LESION 2004 mole removal TYMPANOSTOMY GENERAL ANESTHESIA Bilateral 2008 FAMILY HISTORY Problem Relation Age of Onset Ovarian cancer Maternal Grandmother Ovarian cancer Paternal Grandmother Social History Tobacco Use Smoking status: Every Day Packs/day: 0.50 Years: 4.00 Pack years: 2.00 Types: Cigarettes Smokeless tobacco: Never Tobacco comments: 2 cigs per day Vaping Use Vaping Use: Never used Substance Use Topics Alcohol use: Never Drug use: Never REVIEW OF SYSTEMS GENERAL: Negative for Malaise, significant weight loss, fever RESPIRATORY: Negative for cough, wheezing and shortness of breath CARDIOVASCULAR: Negative for chest pain, leg swelling and palpitations GI: Negative for abdominal discomfort, blood in stools or black stools and change in bowel habits : Negative for dysuria, frequency and incontinence MUSCULOSKELETAL: right foot pain SKIN: Negative for lesions, rash, and itching. HEMATOLOGY/LYMPHOLOGY Negative for prolonged bleeding, bruising easily, and swollen nodes. ENDOCRINE: Negative for cold or heat intolerance, polyuria, polydipsia and goiter. NEURO: negative Physical Exam: Constitutional: Pt is a well developed 21 year old female who is alert, oriented and cooperative Eyes: Following during examination. No redness or drainage. Respiratory: RR normal and nonlabored. Even breathing. No evidence of distress or shortness of breath. Psychology: Patient is engaged during conversation. Normal affect and mood. Does not appear depressed or anxious during encounter. Vascular: Dorsalis pedis and posterior tibial pulses palpable as b/l Capillary Fill time < 5 seconds to digits 1-5 b/l Skin temperature warm to warm proximal to distal b/l Hair growth present to digits Neurological: intact light touch/epicritic sensation b/l intact protective sensation no significant neurological deficits Dermatological: Nails 1-5 b/l appear normal. Webspaces clean and dry 1-4 b/l. Skin appears well hydrated and supple. good color, texture, turgor. No open lesions present. No callosities present. Musculoskeletal/Orthopaedic: Patient has pain to palpation of right hallux ipj. Right hallux ipj appears rectus without dislocation. There is pain to right 2nd and right 3rd proximal phalanx. There is semi-rigid contracture of right 3rd toe at pipj resulting in the medial aspect of right 3rd toe rubbing against the lateral aspect of right 2nd toe Foot type is neutral structurally MTJ, STJ are full and free of pain and crepitus. +5/5 muscle strength dorsiflexion, plantarflexion, inversion, eversion b/l Radiographs: 3 views right foot ordered August 16, 2022: I have personally reviewed and interpreted these XR myself: there is age indeterminant fracture of right 2nd and right 3rd toe proximal phalanx with callus formation. No appreciable fracture to right hallux ASSESSMENT: (S93.501S) Sprain of right great toe, sequela (primary encounter diagnosis) (M20.61) Deformity of toe of right foot (S92.911G) Delayed union of fracture of toe of right foot (S92.901A) Closed fracture of right foot, initial encounter PLAN: 1. History and physical examination performed. 2. XR reviewed with patient and interpreted today. Patient has what appears to be delayed healing of fracture of right 2nd and right 3rd toe. There is some callus formation present. I would have her continue with firm sole shoe or surgial shoe. I informed her that smoking will affect healing and that if she can refrain from smoking, this will certainly help. I am going to check vitamin d. I do feel given her history of smoking, possible vitamin d and the fact that these fractures show delayed healing, the use of bone stimulator may be an option to consider. 3. I discussed the contracture of right 3rd toe. I would hold at this time bello taping to the third toe as continued taping may increase the deformity. The deformity is semi-rigid so taping to the 4th toe may not result in any change in appearance but she could certainly give this a try. Other option in future could include flexor tenotomy vs transfer with pipj fusion but would wait until fracture is healed and certainly when patinet has ceased smoking. 4. Discussed pain in right hallux ipj. Cannot exclude ligament injury. I do feel mri will help to explain why she is having singificant pain in the great toe and for this reason, I will order mri. 5. Will call patient with results. Jaxon Spence DPM Podiatry [address] [facility] [address] Dept: [phone] Dept * Eve Juarez RN - 08/16/2022 3:44 PM EDT Patient presents with: Right Foot - New, Fracture, Pain Left Foot - New, Pain AMB ROOMING INTAKE FLOWSHEET DATA Pain Pain Level: 5 Pain Location: Foot-Right Description: Aching Duration Amount of Time: 4 Duration Units: Months Frequency: Continuous Intervention/Comfort measure: Medication, Relaxation Patient presents to office to initial consult regarding right foot, three fractured toes. Pt statesconstant pain, as pt is unable to remain off feet. Initial injury occurred 4 months ago, but has not healed. Imaging completed today. [facility] had pt taping toes. Pt states she is also having bilateral heel pain, which has been ongoing for several years. No other concerns at this time. documented in this encounterFairfield Medical Center06-12-2023 History of Present illness Narrative* Stephanie Ho, RT(R) - 08/16/2022 3:00 PM EDT Radiology Service Progress Note PATIENT NAME: Aniyah Hodgson DATE OF SERVICE: August 17, 2022 TIME: 11:00 AM PATIENT IDENTITY VERIFICATION COMPLETED USING TWO (2) IDENTIFIERS: Name and Date of confirmedby patient verbally. FALL SCREENING: Has the patient had 2 falls in the last year or 1 fall with injury or currently using an Ambulatory Assistive Device (Walker, Cane, Wheelchair, Crutches, etc.)? Yes, Patient High Riskfor Falls What interventions were put in place to prevent falls during this visit? Increased Observations by Caregivers PATIENT GENDER DATA: Female. status: : No status: NO. PATIENT RELEVANT IMPLANT DATA REVIEWED: Not Applicable RADIOLOGY DEPARTMENT: General X-ray: Exam(s) Completed: Lower Extremity X- Ray(s): Foot, Right PERIPHERAL IV DATA: Not applicable SIGNED BY: RT Yuri(R) August 17, 2022 11:00 AM documented in this encounterFairfield Medical Center05-09-2023 Instructions* Patient Instructions* Dorita Larkin APRN.CNP - 07/13/2022 3:13 PM EDT Schedule with podiatry Follow up as needed. documented in this encounterFairfield Medical Center05-09-2023 History of Present illness Narrative* Dorita Larkin APRN.CNP - 07/13/2022 3:00 PM EDT Chief Complaint Patient presents with: Pain: Pain in both feet, mostly right foot. She fell off ladder and broke three toes a few months back, stopped going to [employer]eh[employer] kil[employer] supervisor because did not like him, hurts to walk and they are rubbing together, causing limping by the end of the day In both feet, the heels are hurting with sharp pains that feel like cramping causing her to have a hard time walking HPI Aniyah Hodgson is a 21 year old female who presents here today for Above Complaints.. Patient presents for bilateral foot pain right worse than left. Patient fell off ladder and broke toes a few months ago. Patient has not been following with podiatry as she reports she did not like Dr. Grimm. Patient now reporting her toes are rubbing together and she is limping along with pain in bilateralheels. Past medical history, appointments, medications, allergies reviewed. Previous Medical History PAST MEDICAL HISTORY Diagnosis Date SONIYA (generalized anxiety disorder) 04/21/2020 Kyphosis of thoracic region 03/24/2022 Thoracic spine pain 04/29/2020 Well adult exam 04/21/2020 Last done: 04/21/2020 Previous Surgical History PAST SURGICAL HISTORY Procedure Laterality Date CYST/MOLE REMOVAL Left 2003 ganglion cyst SKIN BX, 1 LESION 2004 mole removal TYMPANOSTOMY GENERAL ANESTHESIA Bilateral 2009 Family History FAMILY HISTORY Problem Relation Age of Onset Ovarian cancer Maternal Grandmother Ovarian cancer Paternal Grandmother Patient Allergies ALLERGIES Allergen Reactions Augmentin [Amoxicil* Mental Status Change Patient states she was punching things and didn't know where she was Current Medications Current Outpatient Medications on File Prior to Visit Medication Sig naproxen (NAPROSYN) 500 mg tablet Take 1 tablet by mouth twice daily as needed (for pain/inflammation). Take with food. (Patient not taking: Reported on 04/28/2020 ) cyclobenzaprine (FLEXERIL) 10 mg tablet Take 1 tablet by mouth three times daily as needed for Muscle Spasm. (Patient not taking: Reported on 04/28/2020 ) No current facility-administered medications on file prior to visit. Social History Social History Tobacco Use Smoking status: Every Day Years: 4.00 Types: Cigarettes Smokeless tobacco: Never Tobacco comments: 2 cigs per day Vaping Use Vaping Use: Never used Substance Use Topics Alcohol use: Never Drug use: Never Review of Symptoms REVIEW OF SYSTEMS SEE HPI EXAM: BP 104/72 Pulse 78 Resp 16 Wt 71.3 kg (157 lb 3.2 oz) LMP 06/28/2022 (Approximate) SpO2 100% BMI 24.39 kg/m General Appearance: Well appearing, alert, in no acute distress, well-hydrated, well nourished.. Extremities: No edema, skin discoloration, clubbing or cyanosis. Good capillary refill. Right middle toe deformed angled medially at the first joint. Peripheral Pulses: Normal. Health Maintenance List COVID-19 VACCINE(1) Never done PNEUMOCOCCAL(1 - PCV) Never done MENINGOCOCCAL B: Consider based on risk(1 of 2 - Risk Bexsero 2-dose series) Never done GC (GONORRHEA) SCREENING (18-24) Never done HEPATITIS C SCREENING Never done HIV SCREENING Never done CHLAMYDIA SCREENING (18-24) Never done DEPRESSION ASSESSMENT Never done INFLUENZA(Season Ended) due on 11/05/2022 PAP TESTING due on 06/07/2025 DTAP,TDAP,TD(9 - Td or Tdap) due on 10/22/2031 HEPATITIS B Completed HPV VACCINE Completed ASSESSMENT/PLAN: 1. Fall from ladder, subsequent encounter - ICD9: V58.89, E881.0, ICD10: W11.XXXD (primary diagnosis) -Continue current medication 2. Deformity of toe of right foot - ICD9: 735.9, ICD10: M20.61 - CONSULT TO PODIATRY Dorita Larkin APRN.PROFESSOR OF PHYSICAL EDUCATION documented in this encounterFairfield Medical Center04-10-2023 History of Present illness Narrative* Neela Medina MA - 06/14/2022 1:30 PM EDT Scan on 06/10/2022 3:33 PM by External Provider: Miscellaneous Lab Neela Medina MA documented in this encounterFairfield Medical Center04-06-2023 Discharge summary Author Gloria Garcia [facility] June 10, 2022 11:57am Note Date/Time June 10, 2022 11:5 7am [facility] Physical Therapy [facility] [address] [place] [address] [address] [place] [address] / REHABILITATION SERVICES DISCHARGE SUMMARY MR#: [id number] Acct: [id number] Name: ANIYAH HODGSON Rep #: [id number] : 2000 From: Gloria Garcia PT, Cert. MDT Referring Dr.: OUT OF TOWN DOCTOR Status: REG RCR Insurance: [facility] [employer] SELF PAY INSURANCE ANIYAH HODGSON was seen in my office for initial evaluation on 04/14/22. The following Plan of Care was established for this patient: Initial Frequency: 2-3x /Week Initial Duration: 4-6 Weeks Patient/Client Instruction: Educate patient on: Condition, Plan of Care, Risk Factors For the Purpose of:: To improve self management Therapeutic Exercise to Include: Strength training, Body mechanics, Postural training, Flexibilty training, Neuromotor development, In an aquatic setting, Dynamic Lumbar Stabilization, Scapular Strength/Stabilization For the Purpose of:: To decrease pain, To increase ROM, To improve muscle performance and motor function, To increase tolerance to activity/condition/position, To improve ability of physical actions for home/community/work/leisure TENS: Yes IF ES: Yes Cryotherapy (ice pack, ice massage): Yes Thermo therapy (hot pack): Yes Ultrasound (thermal/non thermal): Yes For the Purpose of:: To decrease pain, To improve nutrient delivery to tissue This patient was last seen in our office 04/14/22. Pertinent comments regardingtheir Physical therapy will appear below: This patient has not returned to Physical Therapy and is appropriate to return to MD for further follow-up as needed. At this point I will be discontinuing this patient from physical therapy. I would be happy to see this patient again in the future if found appropriate by the physician. Thank you! Gloria Garcia, PT, Cert MDT Balance/Gait/Functional tests - Balance/Special Test Scores Oswestry Neck Score: 14 <Electronically signed by Gloria Garcia PT, Cert. MDT> 06/10/22 1158 CC: Dr. Toni Barrera MD; JUAN RANKIN ~ REENA Signed [facility] Work Phone: [phone]) 953-748504-06-2023 History of Present illness Narrative* Prasanth Monaco LPN - 06/10/2022 1:13 PM EDT Scan on 06/10/2022 12:00 PM by External Provider: Consultation - PT/OT/Speech documented in this encounterFairfield Medical Center04-03-2023 NotePap Smear Specimen AdequacyApril 2022 1:30pmComment.Satisfactory for evaluation. Endocervical and/or squamous metaplasticcells (endocervical component)are present.[facility] INTERFACED A#[id number] Health Tiffin HospitalComment on above:Satisfactory for evaluation. Endocervical and/or squamous metaplasticcells (endocervical component)are present.06-07-2022 NotePap Smear Specimen AdequacyApril 2022 1:30pmComment.Satisfactory for evaluation. Endocervical and/or squamous metaplasticcells (endocervical component)are present.[facility] INTER[facility]ACED A#[id number] Health Tiffin HospitalComment on above:Satisfactory for evaluation. Endocervical and/or squamous metaplasticcells (endocervical component)are present.05-27-2022 History of Present illness Narrative* Juan Rankin MD - 05/27/2022 4:00 PM EDT [facility] Ortho Spine Department Referring Physician: Toni Colin DO Chief Complaint / Reason for Visit : back pain HPI: Aniyah Hodgson is a 21 y.o. returns the office to discuss her thoracic kyphosis. She did try an injection at the apex of her kyphosis. She states that some of her pain did improve, however she is feeling more pain now in her lower back as well as her neck. She feels that she has extend her lowerback quite more in order to stand straight. She also feels tired with her neck as well. She was nothave any upper extremity or lower extremity symptoms. Symptoms began many years ago with acute worsening over the past year. Symptoms are increased by activity. Prior surgical intervention includes: None. Patient takes naproxen (medications). The patient has attempted : OTC or Rx Anti inflammatories: without significant relief Rest/ activity modification: without significant relief Ice: without significant relief Opioids: without significant relief Home exercises: without significant relief PT: 6 weeks in 2020 without relief Steroid injection: Injections at apex of kyphosis which seemed to help slightly with the pain. Chart notes and referral notes reviewed. CV Disease: No Diabetes: No Smoking: No Incontinence: No Review of Systems: Pertinent ROS reviewed per HPI Past Medical History: No past medical history on file. Past Surgical History: No past surgical history on file. Social History: Social History Occupational History Not on file Tobacco Use Smoking status: Every Day Types: Cigarettes Smokeless tobacco: Never Substance and Sexual Activity Alcohol use: Not on file Drug use: Not on file Sexual activity: Not on file Family History: No family history on file. Medications: Outpatient Medications Prior to Visit Medication Sig Dispense Refill Mzdolys-Iguluwqqymhwj-Jglonesi (EXCEDRIN PO) Take by mouth. cefadroxil 500 MG capsule Take 1 capsule by mouth 2 times daily. 20 capsule 0 Diclofenac sodium (Voltaren) 1 % Gel gel Apply 2 g topically 4 times daily. (Patient not taking: Reported on 05/27/2022) 150 g 1 lidocaine 5 % Patch patch Place 1 patch on skin every 24 hours. Max of 12 hours of application thenremove. (Patient not taking: Reported on 05/27/2022) 30 patch 1 No facility-administered medications prior to visit. Allergies: is allergic to amoxicillin-pot clavulanate. Physical Exam: General: Vitals: 05/27/22 1551 Pulse: 87 Temp: 96.8 degrees F (36 degrees C) SpO2: 98% Weight: 69.6 kg (153 lb 8 oz) Height: 1.753 m (5' 9) No acute distress Lumbar Spine: Tenderness to palpation: midthoracic region Posture: significant thoracic kyphosis Slighlty improves when lying on stomach or lying flat on back Strength Hip Flexor Hip Abductors Quads Tib Ant EHL Gastroc/Soleus Left 5/5 5/5 5/5 5/5 5/5 5/5 Right 5/5 5/5 5/5 5/5 5/5 5/5 Sensation: intact thoracic and lumbar dermatomes Reflex: Patellar: 2+ Imaging Reports reviewed. These are an independent review of images. My findings are below. Plain xrays: Scoliosis x-rays from 04/12/2022 reviewed. This demonstrates exaggerated kyphosis in the thoracic spine. Kyphosis from T1-L2 measures 90 . Majority of kyphosis comes from the T3-T10 region. X-rays from 04/20/2022 reviewed. These are x-rays of the cervical and thoracic spine. These are from an outside facility. This does not demonstrate any acute fracture. Curvature appears to be about the same as x-rays from a week ago. Clinical impression: Patient is a 21 y.o. who presents with exaggerated thoracic kyphosis. She is somewhat flexible. Plan: She is going to be out of her brace for her foot in a week. She has been starts and walk with therapy that point. She is going to continue to do some postural exercises and is going to go to some more therapy for this. We did discuss surgery in great detail which would likely be a T2-L2 posterior spinal fusion. Discussed the extensive risk of surgery which include but limited to: Adjacent segmentdegeneration, proximal junctional kyphosis, spinal cord injury, screw misplacement, wound infection, reaction to general anesthesia. She would like some time to think about this. She will get back toyou with any further questions that she has. She does want to plan on having surgery later in the ye ar. I discussed that she should let us know when she is ready around the time for surgery. Will plan to do surgery with 1 of my partners. Will see her back when it is closer to time for surgery. Planof care discussed. All questions answered. The patient verbalized understanding of the disease process and agreed to the treatment plan formulated for this visit. Juan Rankin MD This dictation was created using voice recognition software. While attempts have been made to review the dictation as it is transcribed, on occasion the spoken word may be misinterpreted by the technology, leading to omissions or inappropriate words or phrases. 42 min were spent for this visit. documented in this encounterSum[facility]23 Miscellaneous Notes* Telephone Encounter - Deepa Castano RN - 05/27/2022 2:01 PM EDT Patient returned call and given provider's message below with verbalized understanding. * Telephone Encounter - Sabrina Shrestha RN - 05/27/2022 8:53 AM EDT Call placed to patient with no answer. Message left to call back and ask to speak to a triage nurse. Sabrina Shrestha RN * Telephone Encounter - Dorita Larkin APRN.CNP - 05/27/2022 8:33 AM EDT Please let patient know her labs are normal. documented in this encounterFairfield Medical Center03-21-2023 Instructions* Patient Instructions* Dorita Larkin APRN.CNP - 05/25/2022 3:18 PM EDT Complete labs Schedule CT Follow up as needed documented in this encounterFairfield Medical Center03-21-2023 History of Present illness Narrative* Dorita Larkin APRN.PROFESSOR OF PHYSICAL EDUCATION - 05/25/2022 3:03 PM EDT Chief Complaint Patient presents with: Cough Sore Throat HPI Aniyah Hodgson is a 21 year old female who presents here today for Above Complaints.. Patient presents for illness x2 weeks. Patient states she has a sore throat, productive cough with green stringy sputum, runny nose, fatigue, and headache. Reports use of mucinex, halls cough drops. Past medical history, appointments, medications, allergies reviewed. Previous Medical History PAST MEDICAL HISTORY Diagnosis Date SONIYA (generalized anxiety disorder) 04/21/2020 Kyphosis of thoracic region 03/24/2022 Thoracic spine pain 04/29/2020 Well adult exam 04/21/2020 Last done: 04/21/2020 Previous Surgical History PAST SURGICAL HISTORY Procedure Laterality Date CYST/MOLE REMOVAL Left 2003 ganglion cyst SKIN BX, 1 LESION 2004 mole removal TYMPANOSTOMY GENERAL ANESTHESIA Bilateral 2008 Family History FAMILY HISTORY Problem Relation Age of Onset Ovarian cancer Maternal Grandmother Ovarian cancer Paternal Grandmother Patient Allergies ALLERGIES Allergen Reactions Augmentin [Amoxicil* Mental Status Change Patient states she was punching things and didn't know where she was Current Medications Current Outpatient Medications on File Prior to Visit Medication Sig naproxen (NAPROSYN) 500 mg tablet Take 1 tablet by mouth twice daily as needed (for pain/inflammation). Take with food. (Patient not taking: Reported on 04/28/2020 ) cyclobenzaprine (FLEXERIL) 10 mg tablet Take 1 tablet by mouth three times daily as needed for Muscle Spasm. (Patient not taking: Reported on 04/28/2020 ) No current facility-administered medications on file prior to visit. Social History Social History Tobacco Use Smoking status: Every Day Years: 4.00 Types: Cigarettes Smokeless tobacco: Never Tobacco comments: 2 cigs per day Vaping Use Vaping Use: Never used Substance Use Topics Alcohol use: Never Drug use: Never Review of Symptoms REVIEW OF SYSTEMS SEE HPI EXAM: BP 120/70 Pulse 80 Temp 37.3 C (99.1 F) Resp 16 Wt 69.9 kg (154 lb) LMP 03/07/2021 (Approximate) BMI 23.89 kg/m General Appearance: Well appearing, alert, in no acute distress, well-hydrated, well nourished.. Nose/Sinuses: Positive findings: mucosa erythematous and swollen, clear rhinorrhea. Oropharynx: Positive findings: moderate oropharyngeal erythema. Lungs: Lungs clear to auscultation. No wheezing, rhonchi, rales.. Heart: RRR without murmur, gallop, or rubs. No ectopy. Abdomen: Positive findings: tenderness moderate and involuntary guarding RUQ and LUQ. Health Maintenance List COVID-19 VACCINE(1) Never done PNEUMOCOCCAL(1 - PCV) Never done MENINGOCOCCAL B: Consider based on risk(1 of 2 - Risk Bexsero 2-dose series) Never done GC (GONORRHEA) SCREENING (-) Never done HEPATITIS C SCREENING Never done HIV SCREENING Never done CHLAMYDIA SCREENING (-) Never done PAP TESTING Never done INFLUENZA(1) Never done DEPRESSION ASSESSMENT Never done DTAP,TDAP,TD(9 - Td or Tdap) due on 10/22/2031 HEPATITIS B Completed HPV VACCINE Completed ASSESSMENT/PLAN: 1. RUQ abdominal pain - ICD9: 789.01, ICD10: R10.11 (primary diagnosis) Etiology unclear - IV CONTRAST (RADIOLOGY PROCEDURE) - CT ABD/PEL W IVCON 2. LUQ abdominal pain - ICD9: 789.02, ICD10: R10.12 Etiology unclear - IV CONTRAST (RADIOLOGY PROCEDURE) 3. Fatigue, unspecified type - ICD9: 780.79, ICD10: R53.83 - CBC + DIFF - COMP METABOLIC PANEL - MONOTEST, INFECTIOUS MONO High suspicion for mono as patient has been ill for weeks with no improvement as well as tendernesswith palpation over liver and spleen however neither is palpable. Dorita Larkin APRN.PROFESSOR OF PHYSICAL EDUCATION documented in this encounterFairfield Medical Center02-16-2023 Miscellaneous Notes* Telephone Encounter - Janis Ordoñez RN - 04/22/2022 4:49 PM EST Pt called and is notified of providers results. Pt voices understanding. Janis Ordoñez RN * Telephone Encounter - Dorita Larkin APRN.CNP - 04/22/2022 4:03 PM EST Please let patient know that her spine xrays show no acute abnormalities. documented in this encounterFairfield Medical Center02-14-2023 History of Present illness Narrative* Paul Slade RT(R) - 04/20/2022 11:10 AM EST Radiology Service Progress Note PATIENT NAME: Aniyah Hodgson DATE OF SERVICE: April 20, 2022 TIME: 10:58 AM PATIENT IDENTITY VERIFICATION COMPLETED USING TWO (2) IDENTIFIERS: Name and Date of confirmedby patient verbally. FALL SCREENING: Has the patient had 2 falls in the last year or 1 fall with injury or currently using an Ambulatory Assistive Device (Walker, Cane, Wheelchair, Crutches, etc.)? No PATIENT GENDER DATA: Female. status: : No status: NO. PATIENT RELEVANT IMPLANT DATA REVIEWED: Not Applicable RADIOLOGY DEPARTMENT: General X-ray: Exam(s) Completed: Spine X-Ray(s): Cervical AP / LAT / OBL , Thoracic, and Lumbar AP / LAT / L5-S1 PERIPHERAL IV DATA: Not applicable SIGNED BY: RT Luis E(R) April 20, 2022 10:58 AM documented in this encounterFairfield Medical Center02-14-2023 Instructions* Patient Instructions* Dorita Larkin APRN.CNP - 04/20/2022 10:50 AM EST Complete xrays Follow up with Dr. Gonsalez as scheduled Follow up in 1 month documented in this encounterFairfield Medical Center02-14-2023 History of Present illness Narrative* Dorita Larkin APRN.CNP - 04/20/2022 10:34 AM EST Chief Complaint Patient presents with: Fall: Patient fell off a ladder 4 days ago. Having back and neck pain HPI Aniyah Hodgson is a 21 year old female who presents here today for Above Complaints.. Patient presents for follow up from fall off a ladder. Patient states the bottom of the ladder kicked out and she fell/slid down the wall. Patient is following with Dr. Gonsalez of orthopedics. Patient states she has kyphosis and is concerned as she is having increased back and neck pain. Patient states that Dr. Gonsalez told her to follow up with him in 1 week for further evaluation as her leg is currently too swollen for complete evaluation. Past medical history, appointments, medications, allergies reviewed. Previous Medical History PAST MEDICAL HISTORY Diagnosis Date SONIYA (generalized anxiety disorder) 04/21/2020 Kyphosis of thoracic region 03/24/2022 Thoracic spine pain 04/29/2020 Well adult exam 04/21/2020 Last done: 04/21/2020 Previous Surgical History PAST SURGICAL HISTORY Procedure Laterality Date CYST/MOLE REMOVAL Left 2003 ganglion cyst SKIN BX, 1 LESION 2004 mole removal TYMPANOSTOMY GENERAL ANESTHESIA Bilateral 2009 Family History FAMILY HISTORY Problem Relation Age of Onset Ovarian cancer Maternal Grandmother Ovarian cancer Paternal Grandmother Patient Allergies ALLERGIES Allergen Reactions Augmentin [Amoxicil* Mental Status Change Patient states she was punching things and didn't know where she was Current Medications Current Outpatient Medications on File Prior to Visit Medication Sig naproxen (NAPROSYN) 500 mg tablet Take 1 tablet by mouth twice daily as needed (for pain/inflammation). Take with food. (Patient not taking: Reported on 04/28/2020 ) cyclobenzaprine (FLEXERIL) 10 mg tablet Take 1 tablet by mouth three times daily as needed for Muscle Spasm. (Patient not taking: Reported on 04/28/2020 ) No current facility-administered medications on file prior to visit. Social History Social History Tobacco Use Smoking status: Every Day Years: 4.00 Types: Cigarettes Smokeless tobacco: Never Tobacco comments: 2 cigs per day Vaping Use Vaping Use: Never used Substance Use Topics Alcohol use: Never Drug use: Never Review of Symptoms REVIEW OF SYSTEMS SEE HPI EXAM: BP 120/74 Pulse 90 Resp 14 LMP 03/07/2021 (Approximate) General Appearance: Well appearing, alert, in no acute distress, well-hydrated, well nourished.. Head: Normocephalic, no masses, lesions, tenderness or abnormalities. Neck: Positive findings: Tenderness with palpation of the soft tissue at base of skull and down posterior neck . No tenderness over the cervical spine. Back:no pain to palpation of vertebrae, reflexes are 2+ and symmetric, motor and sensory appear to be normal, negative SLR test, Muscle tenderness throughout the thoracic and lumbar areas. No tenderness with palpation over the thoracic and lumbar spine. Decreased range of flexion and extension due to muscle tightness and pain. Musculoskeletal: Joint pain: Knee. Immobilizer to right knee. 4 sutures to right knee dry and intact. Health Maintenance List COVID-19 VACCINE(1) Never done PNEUMOCOCCAL(1 - PCV) Never done MENINGOCOCCAL B: Consider based on risk(1 of 2 - Risk Bexsero 2-dose series) Never done GC (GONORRHEA) SCREENING (18-24) Never done HEPATITIS C SCREENING Never done HIV SCREENING Never done CHLAMYDIA SCREENING (18-) Never done PAP TESTING Never done INFLUENZA(1) Never done DEPRESSION ASSESSMENT Never done DTAP,TDAP,TD(9 - Td or Tdap) due on 10/22/2031 HEPATITIS B Completed HPV VACCINE Completed ASSESSMENT/PLAN: 1. Fall from ladder, subsequent encounter - ICD9: V58.89, E881.0, ICD10: W11.XXXD (primary diagnosis) - XR LUMBAR LIMITED 2V AP/LAT - XR THORACIC LIMITED 2V AP/LAT - XR CERV OTHER 4V AP/LAT/OBL 2. Acute bilateral low back pain without sciatica - ICD9: 724.2, 338.19, ICD10: M54.50 - XR LUMBAR LIMITED 2V AP/LAT - XR THORACIC LIMITED 2V AP/LAT - XR CERV OTHER 4V AP/LAT/OBL 3. Acute pain of right knee - ICD9: 719.46, ICD10: M25.561 -Continue hydrocodone and meloxicam -Follow up with Dr. Gonsalez as scheduled. Dorita Larkin APRN.PROFESSOR OF PHYSICAL EDUCATION documented in this encounterFairfield Medical Center02-08-2023 History of Present illness Narrative* Neela Medina MA - 04/14/2022 7:00 PM EST Scan on 04/14/2022 11:49 AM by External Provider: Consultation - PT/OT/Speech Neela Medina MA documented in this encounterFairfield Medical Center02-06-2023 History of Present illness Narrative* Juan Rankin MD - 04/12/2022 4:00 PM EST [facility] Ortho Spine Department Referring Physician: Toni Colin DO Chief Complaint / Reason for Visit : back pain HPI: Aniyah Hodgson is a 21 y.o. who presents with increasing mid back pain. She states that this hasbeen going on for as long as she can remember. She feels that the pain is steadily getting worse. She notes that most of the pain is in the middle portion of her back. She feels that she is hunching over more. She feels that it is worse when she is standing for long periods of time. She is unable to lie flat on her back. She has tried 6 weeks of physical therapy in the past. This is around 2 years ago. She [facility], however did not follow-up with her. She also notes that the longer she is standing, she feels neck pain with radiation to her arms as well as low back pain with radiation to her legs. She has tried naproxen, topical creams. She has not tried any injections. Symptoms began many years ago with acute worsening over the past year. Symptoms are increased by activity. Prior surgical intervention includes: None. Patient takes naproxen (medications). The patient has attempted : OTC or Rx Anti inflammatories: without significant relief Rest/ activity modification: without significant relief Ice: without significant relief Opioids: without significant relief Home exercises: without significant relief PT: 6 weeks in 2020 without relief Steroid injection: has not attempted Chart notes and referral notes reviewed. CV Disease: No Diabetes: No Smoking: No Incontinence: No Review of Systems: Pertinent ROS reviewed per HPI Past Medical History: No past medical history on file. Past Surgical History: No past surgical history on file. Social History: Social History Occupational History Not on file Tobacco Use Smoking status: Not on file Smokeless tobacco: Not on file Substance and Sexual Activity Alcohol use: Not on file Drug use: Not on file Sexual activity: Not on file Family History: No family history on file. Medications: No outpatient medications prior to visit. No facility-administered medications prior to visit. Allergies: has no allergies on file. Physical Exam: General: There were no vitals filed for this visit. No acute distress Lumbar Spine: Tenderness to palpation: mid thoracic spine Thoracic kyphosis somewhat flexible, she is able to lie flat on exam table Posture: exaggerated thoracic kyphosis Gait: normal Able to perform tandem gait: Yes Able to walk on heels and toes: Yes LE swelling No Fingers/toes warm, well perfused Scar: no thoracic scar Strength Hip Flexor Hip Abductors Quads Tib Ant EHL Gastroc/Soleus Left 5/5 5/5 5/5 5/5 5/5 5/5 Right 5/5 5/5 5/5 5/5 5/5 5/5 Sensation: intact L2-S1 distributions Reflex: Patellar: 2+ Achilles: 2+ Hoffmans: neg Straight leg raise: neg Imaging Reports reviewed. These are an independent review of images. My findings are below. Plain xrays: Scoliosis x-rays from 04/12/2022 reviewed. This demonstrates exaggerated kyphosis in the thoracic spine. Kyphosis from T1-L2 measures 90 . Majority of kyphosis comes from the T3-T10 region. Clinical impression: Patient is a 21 y.o. who presents with exaggerated thoracic kyphosis. She is somewhat flexible. Plan: We discussed symptoms, physical exam findings, and imaging findings at length. I gave her referral for physical therapy to do to strengthen back muscles. I will shoulder imaging at our conference. She did have an MRI done in past which did not display any intra spinal pathology. I also prescribed Voltaren gel and lidocaine patches if this can help with some of pain that she is experiencing currently. I will see her back in the office in about 6 weeks. Plan of care discussed. All questions answered. The patient verbalized understanding of the disease process and agreed to the treatment plan formulated for this visit. Juan Rankin MD This dictation was created using voice recognition software. While attempts have been made to review the dictation as it is transcribed, on occasion the spoken word may be misinterpreted by the technology, leading to omissions or inappropriate words or phrases. documented in this encounterSumma Health [facility]01-24-2023 History of Present illness Narrative* Eve Mello - 03/30/2022 10:40 AM EST POPULATION HEALTH NAVIGATION OUTREACH Action/FYI Left vm Patient Identified by Name and : NO Outreach Outcome/Action Unable to reach patient: Left message MyChart message sent Did you use a PCP flex slot to schedule this appointment? No Reason for Outreach Care Gap or Scheduling/Wellness visits Payer: Payor: [facility] MEDICAID / Plan: [facility] COMM[employer]ITY [employer]AN MEDICAID OF [place] / Product Type: Medicaid / Care Gap Reviewed:: Specialty Scheduling Reminder: Reminder note to check Health Maintenance for items below Health Maintenance items due: COVID-19 VACCINE(1) Never done PNEUMOCOCCAL(1 - PCV) Never done MENINGOCOCCAL B: Consider based on risk(1 of 2 - Risk Bexsero 2-dose series) Never done GC (GONORRHEA) SCREENING () Never done HEPATITIS C SCREENING Never done HIV SCREENING Never done CHLAMYDIA SCREENING () Never done PAP TESTING Never done INFLUENZA(1) Never done DEPRESSION ASSESSMENT Never done Navigation Signature: Eve Mello March 30, 2022 10:41 AM documented in this encounterFairfield Medical Center01-19-2023 Miscellaneous Notes* Telephone Encounter - Barb Kim - 03/25/2022 11:21 AM EST Left vmail for pt to pharmacy picking tech disc Barb Kim March 25, 2022 11:22 AM * Telephone Encounter - Marina Wakefiled PSS - 03/25/2022 8:50 AM EST CD READY FOR [facility] * Telephone Encounter - Barb Kim - 03/24/2022 5:30 PM EST Pt requesting discs of thoracic spine XR and MRI Barb Kim March 24, 2022 5:31 PM documented in this encounterFairfield Medical Center01-18-2023 History of Present illness Narrative* Toni Barrera MD - 03/24/2022 4:41 PM EST Chief Complaint Patient presents with: Back Pain HPI Aniyah Hodgson is a 21 year old female who presents here today for follow up back pain. Patient indicated that she would not qualify for disability. Patient indicated her pain today is about 8-9 and the naproxen is not working. Has D/C that medication. Patient did spine Med back in 2020 and had thoracic x-rays that showed significant kyphosis in the thoracic spine. A MRI done showed slight wedging of T7-T9 vertebral bodies suggestive of possible Scheuermann's disease. No significant canal or neural foraminal stenosis. Patient was referred to PHYSICAL THERAPY up at [facility] though this had not helped in the past. She was not able to drive that distance on a regular basis so did not go and never reached out to the spine med provider to let her know this. Patient remembers having significant pain in her back since about the age of 6. She remembers that her grandfather had a significant leaning forward of his posture in his upper back. Mother has had lumbar surgery for disc disease. Not aware of any connective tissue disease. Does get numbness in her arms. Has had pain into her arms and legs. 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 Past medical history, appointments, medications, allergies reviewed. Previous Medical History No past medical history on file. Previous Surgical History PAST SURGICAL HISTORY Procedure Laterality Date CYST/MOLE REMOVAL Left 2003 ganglion cyst SKIN BX, 1 LESION 2005 mole removal TYMPANOSTOMY GENERAL ANESTHESIA Bilateral 2008 Family History FAMILY HISTORY Problem Relation Age of Onset Ovarian cancer Maternal Grandmother Ovarian cancer Paternal Grandmother Patient Allergies ALLERGIES Allergen Reactions Augmentin [Amoxicil* Mental Status Change Patient states she was punching things and didn't know where she was Current Medications Current Outpatient Medications on File Prior to Visit Medication Sig naproxen (NAPROSYN) 500 mg tablet Take 1 tablet by mouth twice daily as needed (for pain/inflammation). Take with food. (Patient not taking: Reported on 04/28/2020 ) cyclobenzaprine (FLEXERIL) 10 mg tablet Take 1 tablet by mouth three times daily as needed for Muscle Spasm. (Patient not taking: Reported on 04/28/2020 ) No current facility-administered medications on file prior to visit. Social History Social History Tobacco Use Smoking status: Every Day Years: 4.00 Types: Cigarettes Smokeless tobacco: Never Tobacco comments: 2 cigs per day Vaping Use Vaping Use: Never used Substance Use Topics Alcohol use: Never Drug use: Never Review of Symptoms REVIEW OF SYSTEMS Se HPI EXAM: BP 134/84 (BP Site: Right Arm, BP Position: Sitting, BP Cuff Size: Regular Adult) Pulse 82 Wt 72.1 kg (159 lb) LMP 03/07/2021 (Approximate) BMI 24.67 kg/m General Appearance: Well appearing, alert, in no acute distress, well-hydrated, well nourished.. Lungs: Lungs clear to auscultation. No wheezing, rhonchi, rales.. Heart: RRR without murmur, gallop, or rubs. No ectopy. Back: has significant kyphosis of the thoracic spine. There is tenderness over the thoracic spine and patient is very uncomfortable if trying to sit up right to straighten her posture. Health Maintenance List COVID-19 VACCINE(1) Never done PNEUMOCOCCAL(1 - PCV) Never done MENINGOCOCCAL B: Consider based on risk(1 of 2 - Risk Bexsero 2-dose series) Never done GC (GONORRHEA) SCREENING (18-24) Never done HEPATITIS C SCREENING Never done HIV SCREENING Never done CHLAMYDIA SCREENING (18-24) Never done PAP TESTING Never done INFLUENZA(1) Never done DEPRESSION ASSESSMENT Never done DTAP,TDAP,TD(9 - Td or Tdap) due on 10/22/2031 HEPATITIS B Completed HPV VACCINE Completed Data reviewed A/P ASSESSMENT/PLAN: 1. Thoracic spine pain - ICD9: 724.1, ICD10: M54.6 (primary diagnosis) - may have Scheuermann's disease. - CONSULT TO ORTHOPAEDICS 2. Kyphosis of thoracic region, unspecified kyphosis type - ICD9: 737.10, ICD10: M40.204 - as above. I spent a total of 30 minutes on the date of the service which included preparing to see the patient, [id number] patient care, completing clinical documentation, performing a medically appropriate examination, counseling and educating the patient/family/caregiver and ordering medications, tests, or procedures. Toni Barrera MD documented in this encounterFairfield [facility] Center12-[facility]-2022 History of Present illness Narrative* Deric Esquivel APRN.PROFESSOR OF PHYSICAL EDUCATION - 02/08/2022 1:00 PM EST Telemedicine Visit - Distance Health Virtual Visit Note Patient seen on [employer] Apps (mytaxi) video visit platform. Location of patient: [place] Toni Barrera MD History of Present Illness Aniyah Hodgson is a 21 year old year old female who presents for the past 2 week(s) with symptoms that are: Constant ENT: Patient complains of sore throat. Son got croup about 2 weeks ago and then started to get sick. Duration: 2 weeks Fever: No. Headache: Yes. Sore throat: Yes. No exudate noted. Ear pain: No. Lymph nodes: Cervical feel swollen. Nasal drainage: Yes. Cough: No. No longer. Shortness of breath: No. Nausea: No. Vomiting: No. Diarrhea: No. Previous treatment: Yes. Used mucinex. No past medical history on file. PAST SURGICAL HISTORY Procedure Laterality Date CYST/MOLE REMOVAL Left 2003 ganglion cyst SKIN BX, 1 LESION 2005 mole removal TYMPANOSTOMY GENERAL ANESTHESIA Bilateral 2009 FAMILY HISTORY Problem Relation Age of Onset Ovarian cancer Maternal Grandmother Ovarian cancer Paternal Grandmother Social History Tobacco Use Smoking status: Every Day Years: 4.00 Types: Cigarettes Smokeless tobacco: Never Tobacco comments: 2 cigs per day Vaping Use Vaping Use: Never used Substance Use Topics Alcohol use: Never Drug use: Never ALLERGIES Allergen Reactions Augmentin [Amoxicil* Mental Status Change Patient states she was punching things and didn't know where she was Video Exam (Examination performed via Video enabled technology) General appearance: Alert, oriented, pleasant, in NAD :Yes Ill appearing :No Lethargic appearing :No Respiratory distress :No Oropharyngeal: Difficult to examine ASSESSMENT/PLAN: 1. Acute pharyngitis, unspecified etiology - ICD9: 462, ICD10: J02.9 (primary diagnosis) - Discussed supportive care treatment with fluids, rest and analgesia. - The patient may also use nasal saline gtts and suction prn. - AZITHROMYCIN 250 MG TABLET 2. Sinusitis, unspecified chronicity, unspecified location - ICD9: 473.9, ICD10: J32.9 - Will begin treatment with as per antibiotic as written, see orders - AZITHROMYCIN 250 MG TABLET - Add cool mist humidifier. - Add flonase over the counter. PLAN: - Red flags discussed for need for in person care - All questions answered Deric Esquivel APRN.CNP If you let us know who your primary care provider is, we will send them a notification of today's visit through our electronic medical records system. Since not all providers have access to our notifications, we strongly encourage you to share the following record of today's visit with your primarycare provider at your next visit. This will help in providing you the best care. If you do not have an established Primary Care physician and would like to continue care with a [facility] Virtual Primary Care physician, please ask your provider to place a Establish PrimaryCare order. Use [employer] to manage your care, wherever you are, 27/09, on your mobile device or computer. [employer] connects you to [employer] Apps (mytaxi) so you can access all your health information in one place and also schedule and request virtual appointments with primary care providers. documented in this encounterFairfield Medical Center12-05-2022 History of Present illness Narrative* Edda Lyons APRN.CNP - 02/08/2022 12:28 PM EST This is an Express Care eVisit note for Aniyah Hodgson eVisit/Questionnaire reviewed The chief complaint for the visit - Patient presents with: Sinusitis Recommendations/Treatment plan - Rx as below plus self care. See My Chart Message to patient. Recommendation for follow up - PRN The following approved medication requests have been transmitted electronically. Requested Prescriptions Signed Prescriptions Disp Refills doxycycline monohydrate 100 mg tablet 14 tablet 0 Sig: Take 1 tablet by mouth twice daily for 7 days. 10 mins to complete Edda Lyons APRN.CNP documented in this encounterFairfield Medical Center09-26-2022 History of Present illness Narrative* Araceli Tucker RN - 11/30/2021 3:38 PM EDT PT ASSESSMENT - CASTING ROOM Aniyah presents for Application of brace. Applied [employer] Neoprene thumb splint to left hand and CMC thumb brace size medium to her right hand Bilateral hand Patient has been instructed in Care and proper application of braces. Araceli Tucker RN * Wu Ferro MD - 11/30/2021 3:15 PM EDT Patient presents with: Left Wrist - New, Pain Right Wrist - New, Pain: Bilateral wrist tendonitis Right index finger fx Wu Ferro MD Department of Orthopaedics Orthopaedics [address] [facility] [address] Dept: [phone] Dept November Consultation requested by SONIYA Jefferson for an opinion regarding bilateral wrist pain. My final recommendations will be communicated back to the requesting physician by way of shared Medical record or letter to requesting physician via US mail. CHIEF COMPLAINT: New and Pain of the Left Wrist and New and Pain of the Right Wrist (Bilateral wrist tendonitis/Right index finger fx) HPI Patient is here today for bilateral wrist pain that has been going on for over 5 years. Patient states the pain is an aching pain that goes down into her thumbs, but gets more intense and sharp with a lot of use. RHD; not currently working anywhere. AMB ROOMING INTAKE FLOWSHEET DATA Pain Pain Level: 3 Pain Location: (bilateral wrists) Description: Aching, Stabbing/Not Incision, Sharp Duration Amount of Time: 5 Duration Units: Years Frequency: Intermittent Comments: none ASSESSMENT: M65.4 De Quervain's tenosynovitis (primary encounter diagnosis) M77.8 Wrist tendonitis PLAN: We discussed anti-inflammatories, bracing and possible cortisone injections. FOLLOW UP INSTRUCTIONS: As needed Ms. Aniyah Hodgson was advised as to contrast therapies and/or to take analgesics/anti-inflammatoriesas needed and all contraindications were reviewed. OBJECTIVE: Ms. Aniyah Hodgson is a pleasant 21 year old in no apparent distress. Gen:LMP 03/21/2020 nl development, non obese, no deformities ENT: Normocephalic, normal hearing, moist mucosa CV: Pulses:Radial= 2+ and symmetric, capillary refill < 2 secs, no peripheral edema/varicosities Skin: no rash, bruising or lesions. Good turgor. Psych: cooperative and appropriate, alert and oriented x 3, good mood and affect. Musculoskeletal: Tenderness over both first dorsal compartment. Positive Ayo's bilaterally. IMAGING: Deferred today Supporting Subjective Information Below: Past Medical History: History reviewed. No pertinent past medical history. Past Surgical History: PAST SURGICAL HISTORY Procedure Laterality Date CYST/MOLE REMOVAL Left 2003 ganglion cyst SKIN BX, 1 LESION 2005 mole removal TYMPANOSTOMY GENERAL ANESTHESIA Bilateral 2008 Family History: FAMILY HISTORY Problem Relation Age of Onset Ovarian cancer Maternal Grandmother Ovarian cancer Paternal Grandmother Social History: Social History Tobacco Use Smoking status: Every Day Years: 4.00 Types: Cigarettes Smokeless tobacco: Never Tobacco comments: 2 cigs per day Vaping Use Vaping Use: Never used Substance Use Topics Alcohol use: Never Drug use: Never Medications: Current Outpatient Medications Medication Sig naproxen (NAPROSYN) 500 mg tablet Take 1 tablet by mouth twice daily as needed (for pain/inflammation). Take with food. (Patient not taking: Reported on 04/28/2020 ) cyclobenzaprine (FLEXERIL) 10 mg tablet Take 1 tablet by mouth three times daily as needed for Muscle Spasm. (Patient not taking: Reported on 04/28/2020 ) No current facility-administered medications for this visit. Allergies: Augmentin [Amoxicillin-Pot Clavulanate] ROS: General (negative for fatigue, malaise, weight loss/gain) HEENT (negative for headache, earache, recent vision changes, sinus pain, sore throat) Respiratory (no recent shortness of breath, hemoptysis) CV (negative for chest tightness, palpitations) Musculoskeletal (see HPI) Psych (no depression, anxiety) REFERRING PHYSICIAN: Ms. Aniyah Hodgson was referred to me for consultation by the following physician. This consultation note will be sent to the following physician by either mail or electronic medical record. Erma Gonzalez [address] [facility] [address] Toni Barrera MD [address] [facility] [address] Wu Ferro MD documented in this encounterFairfield Medical Center09-01-2022 History of Present illness Narrative* Erma Gonzalez PA-C - 11/05/2021 1:41 PM EDT Chief Complaint Patient presents with: ER F/U HPI Aniyah Hodgson is a 21 year old female who presents here today for ER Follow Up.. Patient was seen in ER on 10/21/2021 due to finger crush injury. She had xray that showed a distal tuft fracture. Wound was cleaned but given location unable to suture. She was dc home with atb and splint to wear. She overall feels like she had noted improvement. She wears the splint depending on what she is doing but not consistent. She no longer needs any OTC pain relief. No redness or additional swelling. Has had carpal tunnel symptoms. R > L. Has been present for about 5 years. States that she struggles with doing dishes. Pain when she tries to trim mechanic thin things. Pain is located in wrist to mid forearm. Past medical history, appointments, medications, allergies reviewed. Previous Medical History No past medical history on file. Previous Surgical History PAST SURGICAL HISTORY Procedure Laterality Date CYST/MOLE REMOVAL Left 2003 ganglion cyst SKIN BX, 1 LESION 2005 mole removal TYMPANOSTOMY GENERAL ANESTHESIA Bilateral 2008 Family History FAMILY HISTORY Problem Relation Age of Onset Ovarian cancer Maternal Grandmother Ovarian cancer Paternal Grandmother Patient Allergies ALLERGIES Allergen Reactions Augmentin [Amoxicil* Mental Status Change Patient states she was punching things and didn't know where she was Current Medications Current Outpatient Medications on File Prior to Visit Medication Sig naproxen (NAPROSYN) 500 mg tablet Take 1 tablet by mouth twice daily as needed (for pain/inflammation). Take with food. (Patient not taking: Reported on 04/28/2020 ) cyclobenzaprine (FLEXERIL) 10 mg tablet Take 1 tablet by mouth three times daily as needed for Muscle Spasm. (Patient not taking: Reported on 04/28/2020 ) No current facility-administered medications on file prior to visit. Social History Social History Tobacco Use Smoking status: Every Day Years: 4.00 Types: Cigarettes Smokeless tobacco: Never Tobacco comments: 2 cigs per day Vaping Use Vaping Use: Never used Substance Use Topics Alcohol use: Never Drug use: Never Review of Symptoms REVIEW OF SYSTEMS See hpi EXAM: BP 100/72 (BP Site: Left Arm, BP Position: Sitting, BP Cuff Size: Large Adult) Pulse 72 Temp 36.5 C (97.7 F) Resp 16 Wt 69.9 kg (154 lb) LMP 03/21/2020 (Approximate) BMI 23.89 kg/m General Appearance: Well appearing, alert, in no acute distress, well-hydrated, well nourished.. Musculoskeletal: Right index: tender at tip of phalanx. No erythema. Active ROM decreased but full passive ROM. Wrist: +finklestien b/l. Neg tinnels and phalens. [facility] Health Maintenance List COVID-19 VACCINE(1) Never done PNEUMOCOCCAL(1 - PCV) Never done MENINGOCOCCAL B: Consider based on risk(1 of 2 - Risk Bexsero 2-dose series) Never done DEPRESSION SCREENING Never done GC (GONORRHEA) SCREENING (18-24) Never done HEPATITIS C SCREENING Never done HIV SCREENING Never done CHLAMYDIA SCREENING (18-24) Never done PAP TESTING Never done INFLUENZA(1) due on 11/05/2021 DTAP,TDAP,TD(9 - Td or Tdap) due on 10/22/2031 HEPATITIS B Completed HPV VACCINE Completed Data reviewed ASSESSMENT/PLAN: 1. Nondisplaced fracture of distal phalanx of right index finger, initial encounter for closed fracture - ICD9: 816.02, ICD10: S62.660A (primary diagnosis) Recheck xray - XR DIGIT GENERAL 3V FRONTAL/LAT/OBL RIGHT 2. Wrist tendonitis - ICD9: 727.05, ICD10: M77.8 Thumb spicca splints given to try May need to see ortho. Patient asks for consult today so can be scheduled. - CONSULT TO ORTHOPAEDICS Erma Gonzalez PA-C documented in this encounterFairfield Medical Center08-04-2022 Miscellaneous Notes* Telephone Encounter - Magi Maradiaga RN - 10/08/2021 1:33 PM EDT Patient calling to ask if she needs antibiotic for COVID symptoms that started over a week ago. Patient states symptoms have been mild but persistent. She has been following [facility] isolation and home care prior to call. Advised to continue home care for mild symptoms and encouraged to increase fluids for diarrhea symptoms. Reviewed red flags for ER evaluation per triage protocol guidelines. Disposition: Home Care. Magi Maradiaga RN Reason for Disposition [1] COVID-19 diagnosed by positive lab test (e.g., PCR, rapid self-test kit) AND [2] mild symptoms (e.g., cough, fever, others) AND [3] no complications or SOB Answer Assessment - Initial Assessment Questions 1. COVID-19 DIAGNOSIS: Positive home test several days ago 2. COVID-19 EXPOSURE: community spread and sick contact 3. ONSET: more than a week ago 4. WORST SYMPTOM: fatigue and weakness 5. COUGH: intermittent dry cough 6. FEVER: low grade fever <100 7. RESPIRATORY STATUS: denies SOB, wheezing, chest pain, back pain 8. [id number]: symptoms have been mild but staying the same 9. HIGH RISK DISEASE: No heart disease 10. VACCINE: No 11. BOOSTER: NO 12. : No 13. OTHER SYMPTOMS: nasal congestion, mild diarrhea (1-3 loose stools per day) x 5 days 14. O2 SATURATION MONITOR: No Protocols used: CORONAVIRUS (COVID-19) DIAGNOSED OR [id number] documented in this encounterFairfield [facility] CenterEval[facility]* Diagnosis Nondisplaced fracture of distal phalanx of right index finger, initial encounter for closed fracture- Primary Wrist tendonitis Other tenosynovitis of hand and wrist documented [facility] this encounter [facility]* Diagnosis De Quervain's tenosynovitis- Primary Radial styloid tenosynovitis Wrist tendonitis Other tenosynovitis of hand and wrist documented in this encounter [facility]* Diagnosis Other acute sinusitis, recurrence not specified- Primary documented in this encounter [facility]* Diagnosis Acute pharyngitis, unspecified etiology- Primary Sinusitis, unspecified chronicity, unspecified location documented in this encounter [facility]* Diagnosis Thoracic spine pain- Primary Pain in thoracic spine Kyphosis of thoracic region, unspecified kyphosis type documented [facility] this [facility]* Diagnosis Chronic back pain, unspecified back location, unspecified back pain laterality- Primary Kyphosis of thoracic region, unspecified kyphosis type Chronic back pain, unspecified back location, unspecified back pain laterality documented [facility] this [facility]* Diagnosis Fall from ladder, subsequent encounter- Primary Acute bilateral low back pain without sciatica Acute pain of right knee documented in this encounter [facility] note* Diagnosis RUQ abdominal pain- Primary Abdominal pain, right upper quadrant LUQ abdominal pain Abdominal pain, left upper quadrant Fatigue, unspecified type [facility]* Diagnosis Kyphosis of thoracic region, unspecified kyphosis type- Primary [facility]* Diagnosis Onset Date Resolution Status Pain in left tibia acute Toe fracture, right acute Laceration of knee acute Laceration of knee acute Pain in left tibia acute Encounter for routine gynecological examination noneactive [facility] Work Phone: Evaluation note* Diagnosis Fall from ladder, subsequent encounter- Primary Deformity of toe of right foot [facility]* Diagnosis Acquired deformity of right toe- Primary Unspecified acquired deformity of toe [facility]* Diagnosis Sprain of right great toe, sequela- Primary Deformity of toe of right foot Delayed union of fracture of toe of right foot Closed fracture of right foot, initial encounter [facility] this [facility]* Diagnosis Nightmares- Primary Other dysfunctions of sleep stages or arousal from sleep [facility]* Diagnosis Kyphosis of thoracic region, unspecified kyphosis type Kyphosis of thoracic region, unspecified kyphosis type documented [facility] this [facility]* Diagnosis Kyphosis of thoracic region, unspecified kyphosis type- Primary Kyphosis of thoracic region, unspecified kyphosis type documented [facility] this [facility]* Diagnosis Vitamin B12 deficiency- Primary Other B-complex deficiencies [facility]* Diagnosis Thoracic spine pain- Primary Pain in thoracic spine Kyphosis of thoracic region, unspecified kyphosis type documented [facility]* Diagnosis Preop exam for internal medicine- Primary Other specified pre-operative examination Kyphosis of thoracic region, unspecified kyphosis type Preop exam for internal medicine Other specified pre-operative examination Kyphosis of thoracic region, unspecified kyphosis type Kyphosis of thoracic region, unspecified kyphosis type documented in this [facility]* Diagnosis Preop exam for internal medicine Other specified pre-operative examination Kyphosis of thoracic region, unspecified kyphosis type Kyphosis of thoracic region, unspecified kyphosis type documented [facility]* Diagnosis Closed fracture of right foot, initial encounter documented [facility]* Diagnosis Acquired deformity of right toe Unspecified acquired deformity of toe documented [facility]* Diagnosis S/P spinal fusion- Primary Arthrodesis status H/O spinal fusion Arthrodesis status documented in this [facility]* Diagnosis Onset Date Resolution Status Contraception management acu Ovarian cyst acute Contraception management acu [facility] Work Phone: Evaluation note* Diagnosis S/P spinal fusion- Primary Arthrodesis status Kyphosis of thoracic region, unspecified kyphosis type Hypotension, unspecified hypotension type Dizziness Dizziness and giddiness Diaphoresis Generalized hyperhidrosis SOB (shortness of breath) Shortness of breath documented [facility] this [facility]* Diagnosis Adverse effect of treatment, subsequent encounter- Primary Weakness of both lower extremities Numbness and tingling of both lower extremities [facility]* Diagnosis Onset Date Resolution Status Contraception management acu [facility] Work Phone: Evaluation note* Diagnosis S/P spinal surgery- Primary Other postprocedural status documented in this [facility] Diagnosis S/P fusion of thoracic spine [facility] in [facility] Diagnosis S/P fusion of thoracic spine- Primary 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/P fusion of thoracic spine Scheuermann's kyphosis Juvenile osteochondrosis of spine [facility] Diagnosis S/P fusion of thoracic spine Scheuermann's kyphosis Juvenile osteochondrosis of spine [facility] Diagnosis Sore throat- Primary Acute pharyngitis URI, acute Acute upper respiratory infections of unspecified site Bacterial sinusitis Unspecified sinusitis (chronic) documented in this [facility]* Diagnosis S/P lumbar fusion Arthrodesis status S/P fusion of thoracic spine Scheurmann's disease Juvenile osteochondrosis of spine [facility] Diagnosis Adverse effect of treatment, subsequent encounter Weakness of both lower extremities Numbness and tingling of both lower extremities [facility] this [facility]* Diagnosis Fall from ladder, subsequent encounter [facility] Diagnosis Acute otitis media, unspecified otitis media type- Primary Wheezing Wheezing [facility] Diagnosis Wheezing [facility] in this [facility]* Diagnosis S/P fusion of thoracic spine 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capular dyskinesis Lack of coordination Pain from implanted hardware, sequela [facility] Diagnosis S/P fusion of thoracic spine 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/P lumbar spinal fusion Arthrodesis status documented [facility] Diagnosis Scheuermann's kyphosis Juvenile osteochondrosis of spine Neck pain Cervicalgia [facility] Diagnosis Acute bilateral low back pain without sciatica- Primary Screening for depression Vitamin B12 deficiency Other B-complex deficiencies Well adult exam Routine general medical examination at a health care facility [facility] Diagnosis 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/P lumbar spinal fusion Arthrodesis status [facility] Diagnosis 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/P fusion of thoracic spine [facility] Diagnosis POTS (postural orthostatic tachycardia syndrome)- Primary Tachycardia, unspecified Status post thoracic spinal fusion [facility] Diagnosis SONIYA (generalized anxiety disorder)- Primary Generalized anxiety disorder Dizziness Dizziness and giddiness Pre-syncope Syncope and collapse Fatigue, unspecified type [facility] Pain, dental- Primary Unspecified disorder of the teeth and supporting structures [facility] this encounter [facility]* Diagnosis Kyphosis of thoracic region, unspecified kyphosis type- Primary SONIYA (generalized anxiety disorder) Generalized anxiety disorder Diaphoresis Generalized hyperhidrosis Benign mole Benign neoplasm of skin, site unspecified documented [facility] this encounter [facility]* Diagnosis SONIYA (generalized anxiety disorder) Generalized anxiety disorder [facility] Diagnosis History of removal of skin mole- Primary documented in this encounter [facility] noteNo assessment information availableNorth[facility] Work Phone: Evaluation note* Diagnosis SONIYA (generalized anxiety disorder)- Primary Generalized anxiety disorder [facility] Additional Instructions 2.1 cm left ovarian cyst seen on CT. Labs stable. hCG negative. Continue your home pain medicines as needed. Follow-up with [place] [facility] outpatient evaluation. Return if worsening symptoms.[facility] Work Phone: Reason for referral (narrative)* Diagnostic Procedure Only (Routine) - Closed Specialty Diagnoses / Procedures Referred By Contac t Referred To Contact XR IMAGING Diagnoses Fall from ladder, subsequent encounter Procedures XR CERV OTHER 4V AP/LAT/OBL RADEX SPINE CERVICAL 4 OR 5 VIEWS Dorita Larkin APRN.CNP [address] [place] [address] Xr Imaging Referral ID Status Reason Start Date Expiration Date V isits Requested Visits Authorized [id number] Closed Auto-Generate d Referral 04/20/2022 05/20/2023 1 1 * Diagnostic Procedure Only (Routine) - Closed Specialty Diagnoses / Procedures Referred By Contac t Referred To Contact XR IMAGING Diagnoses Fall from ladder, subsequent encounter Procedures XR THORACIC LIMITED 2V AP/LAT RADEX SPINE THORACIC 2 VIEWS Dorita Larkin APRN.CNP [address] [place] [address] Xr Imaging Referral ID Status Reason Start Date Expiration Date V isits Requested Visits Authorized [id number] Closed Auto-Generate d Referral 04/20/2022 05/20/2023 1 1 * Diagnostic Procedure Only (Routine) - Closed Specialty Diagnoses / Procedures Referred By Contac t Referred To Contact XR IMAGING Diagnoses Fall from ladder, subsequent encounter Procedures XR LUMBAR LIMITED 2V AP/LAT RADEX SPINE LUMBOSACRAL 2/3 VIEWS Dorita Larkin APRN.CNP [address] [place] [address] Xr Imaging Referral ID Status Reason Start Date Expiration Date V isits Requested Visits Authorized [id number] Closed Auto-Generate d Referral 04/20/2022 05/20/2023 1 1 [facility] for referral (narrative)* Diagnostic Procedure Only (Routine) - Pending Review Specialty Diagnoses / Procedures Referred By Contac t Referred To Contact XR IMAGING Diagnoses Acquired deformity of right toe Procedures XR FOOT GENERAL 3V AP/LAT/OBL RIGHT RADEX FOOT COMPLETE MINIMUM [address] [place] [address] Xr Imaging Referral ID Status Reason Start Date Expiration Date Visits Requested Visits Authorized [id number] Pending Review Auto-Generat ed Referral 08/10/2022 09/09/2023 1 1 [facility] for referral (narrative)* Diagnostic Procedure Only (Routine) - Closed Specialty Diagnoses / Procedures Referred By Contac t Referred To Contact XR IMAGING Diagnoses Acquired deformity of right toe Procedures XR FOOT GENERAL 3V AP/LAT/OBL RIGHT RADEX FOOT COMPLETE MINIMUM 3 VIEWS Jaxon Spence [address] [place] [address] [place] [address] Referral ID Status Reason Start Date Expiration Date V isits Requested Visits Authorized [id number] Closed Auto-Generate d Referral 08/10/2022 09/09/2023 1 1 [facility] for referral (narrative)* Diagnostic Procedure Only (Routine) - Closed Specialty Diagnoses / Procedures Referred By Contac t Referred To Contact XR IMAGING Diagnoses Adverse effect of treatment, subsequent encounter Weakness of both lower extremities Numbness and tingling of both lower extremities Procedures XR LUMBAR LIMITED 2V AP/LAT RADEX SPINE LUMBOSACRAL 2/3 VIEWS Dorita Larkin APRN.PROFESSOR OF PHYSICAL EDUCATION [address] [place] [address] [place] [address] Referral ID Status Reason Start Date Expiration Date V isits Requested Visits Authorized [id number] Closed Auto-Generate d Referral 02/17/2023 03/18/2024 1 1 * MRI/CT (Urgent) - Pending Review Specialty Diagnoses / Procedures Referred By Contac t Referred To Contact MR IMAGING Diagnoses Adverse effect of treatment, subsequent encounter Procedures MRI THORACIC SPINE WO/W IVCON MRI SPINAL CANAL THORACIC W/O & W/CONTR JULIO CESARL Dorita Larkin APRN.PROFESSOR OF PHYSICAL EDUCATION [address] [place] [address] [place] [address] Referral ID Status Reason Start Date Expiration Date Visits Requested Visits Authorized [id number] Pending Review Auto-Generat ed Referral 03/18/2024 1 1 * MRI/CT (Urgent) - Pending Review Specialty Diagnoses / Procedures Referred By Contac t Referred To Contact MR IMAGING Diagnoses Adverse effect of treatment, subsequent encounter Numbness and tingling of both lower extremities Procedures MRI LUMBAR SPINE WO/W IVCON MRI SPINAL CANAL LUMBAR W/O & W/CONTR Dorita Brennan APRN.PROFESSOR OF PHYSICAL EDUCATION [address] [place] [address] [place] [address] Referral ID Status Reason Start Date Expiration Date Visits Requested Visits Authorized [id number] Pending Review Auto-Generat ed Referral 03/18/2024 1 1 * Diagnostic Procedure Only (Routine) - Closed Specialty Diagnoses / Procedures Referred By Contac t Referred To Contact XR IMAGING Diagnoses Adverse effect of treatment, subsequent encounter Weakness of both lower extremities Numbness and tingling of both lower extremities Procedures XR THORACIC GENERAL 3V AP/LAT/SWIMMERS RADEX SPINE THORACIC 3 VIEWS Doirta Larkin APRN.PROFESSOR OF PHYSICAL EDUCATION [address] [place] [address] [place] [address] Referral ID Status Reason Start Date Expiration Date V isits Requested Visits Authorized [id number] Closed Auto-Generate d Referral 02/17/2023 03/18/2024 1 1 [facility] for referral (narrative)* Diagnostic Procedure Only (Routine) - Closed Specialty Diagnoses / Procedures Referred By Contac t Referred To Contact XR IMAGING Diagnoses Adverse effect of treatment, subsequent encounter Weakness of both lower extremities Numbness and tingling of both lower extremities Procedures XR LUMBAR LIMITED 2V AP/LAT RADEX SPINE LUMBOSACRAL 2/3 VIEWS Dorita Larkin APRN.PROFESSOR OF PHYSICAL EDUCATION [address] [place] [address] [place] [address] Referral ID Status Reason Start Date Expiration Date V isits Requested Visits Authorized [id number] Closed Auto-Generate d Referral 02/17/2023 03/18/2024 1 1 * Diagnostic Procedure Only (Routine) - Closed Specialty Diagnoses / Procedures Referred By Contac t Referred To Contact XR IMAGING Diagnoses Adverse effect of treatment, subsequent encounter Weakness of both lower extremities Numbness and tingling of both lower extremities Procedures XR THORACIC GENERAL 3V AP/LAT/SWIMMERS RADEX SPINE THORACIC 3 VIEWS Dorita Larkin APRN.CNP [address] [place] [address] [place] [address] Referral ID Status Reason Start Date Expiration Date V isits Requested Visits Authorized [id number] Closed Auto-Generate d Referral 02/17/2023 03/18/2024 1 1 [facility] for referral (narrative)* Diagnostic Procedure Only (Routine) - Closed Specialty Diagnoses / Procedures Referred By Contac t Referred To Contact XR IMAGING Diagnoses Fall from ladder, subsequent encounter Procedures XR CERV OTHER 4V AP/LAT/OBL RADEX SPINE CERVICAL 4 OR 5 VIEWS Dorita Larkin APRN.PROFESSOR OF PHYSICAL EDUCATION [address] [place] [address] [place] [address] Referral ID Status Reason Start Date Expiration Date V isits Requested Visits Authorized [id number] Closed Auto-Generate d Referral 04/20/2022 05/20/2023 1 1 * Diagnostic Procedure Only (Routine) - Closed Specialty Diagnoses / Procedures Referred By Contac t Referred To Contact XR IMAGING Diagnoses Fall from ladder, subsequent encounter Procedures XR THORACIC LIMITED 2V AP/LAT RADEX SPINE THORACIC 2 VIEWS Dorita Larkin APRN.PROFESSOR OF PHYSICAL EDUCATION [address] [place] [address] [place] [address] Referral ID Status Reason Start Date Expiration Date V isits Requested Visits Authorized [id number] Closed Auto-Generate d Referral 04/20/2022 05/20/2023 1 1 * Diagnostic Procedure Only (Routine) - Closed Specialty Diagnoses / Procedures Referred By Contac t Referred To Contact XR IMAGING Diagnoses Fall from ladder, subsequent encounter Procedures XR LUMBAR LIMITED 2V AP/LAT RADEX SPINE LUMBOSACRAL 2/3 VIEWS Dorita Larkin APRN.PROFESSOR OF PHYSICAL EDUCATION [facility] [place] [address] [place] [address] Referral ID Status Reason Start Date Expiration Date V isits Requested Visits Authorized [id number] Closed Auto-Generate d Referral 04/20/2022 05/20/2023 1 1 [facility] for referral (narrative)* Consultation (Routine) - New Request Specialty Diagnoses / Procedures Referred By Contac t Referred To Contact Neurology Diagnoses POTS (postural orthostatic tachycardia syndrome) Juan Rankin MD [address] [place] [phone] Referral ID Status Reason Start Date Expiration Date V isits Requested Visits Authorized [id number] New Request 04/09/2024 05/04/2025 1 1 [facility] for referral (narrative)No reason for referral information availableBl[facility] Work Phone: [facility] for visit Narrative* Diagnostic Procedure Only (Routine) - Closed Specialty Diagnoses / Procedures Referred By Contac t Referred To Contact XR IMAGING Diagnoses Acquired deformity of right toe Procedures XR FOOT GENERAL 3V AP/LAT/OBL RIGHT RADEX FOOT COMPLETE MINIMUM 3 VIEWS Jaxon Spence [address] [place] [address] [place] [address] Referral ID Status Reason Start Date Expiration Date V isits Requested Visits Authorized [id number] Closed Auto-Generate d Referral 08/10/2022 09/09/2023 1 1 [facility] for visit Narrative* Diagnostic Procedure Only (Routine) - Closed Specialty Diagnoses / Procedures Referred By Contac t Referred To Contact XR IMAGING Diagnoses Adverse effect of treatment, subsequent encounter Weakness of both lower extremities Numbness and tingling of both lower extremities Procedures XR THORACIC GENERAL 3V AP/LAT/SWIMMERS RADEX SPINE THORACIC 3 VIEWS Dorita Larkin APRN.CNP [address] [place] [address] [place] [address] Referral ID Status Reason Start Date Expiration Date V isits Requested Visits Authorized [id number] Closed Auto-Generate d Referral 02/17/2023 03/18/2024 1 1 [facility] Diagnostic Procedure Only (Routine) - Closed Specialty Diagnoses / Procedures Referred By Sonny almonte Referred To Contact XR IMAGING Diagnoses Fall from ladder, subsequent encounter Procedures XR CERV OTHER 4V AP/LAT/OBL RADEX SPINE CERVICAL 4 OR 5 VIEWS Dorita Larkin APRN.PROFESSOR OF PHYSICAL EDUCATION [address] [place] [address] [place] [address] Referral ID Status Reason Start Date Expiration Date V isits Requested Visits Authorized [id number] Closed Auto-Generate d Referral 04/20/2022 05/20/2023 1 1 [facility] Summary Purpose Family History No Family History Records Found Relationship Condition Age at Onset Recorded Date/T colby grandmother Malignant neoplasm 27 grandmother Malignant neoplasm 60 Advance Directives No Advanced Directives Records Found Advance Directive Response Recorded Date/ Time Living Will No April 19, 2 023 9:10am 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 Screen 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 Machine Operator No April 19, 2022 9:10am Advance Directive Response Recorded Date/ Time Living Will No July 12, 2022 4: 15am Power of Screen Printing Machine Operator No July 12, 2022 4:15am Latest Code Status on File Code Status Date Activated Date Inactivated Comments Full Code 01/17/2023 6:15 PM Advance Directive Response Recorded Date/ Time Living Will No February 03, 2 023 5:25pm Power of Screen Printing Machine Operator No February 03, 2023 5:25pm Latest Code Status on File Code Status Date Activated Date Inactivated Comments Full Code 01/17/2023 6:15 PM Advance Directive Response Recorded Date/ Time Living Will No February 03, 2 023 6:25pm Power of Screen Printing Machine Operator No February 03, 2023 6:25pm Date Activated Date Inactivated Comments 01/17/2023 6:15 PM Date Activated Date Inactivated Comments 01/17/2023 6:15 PM Reason for Referral Specialty Diagnoses / Procedures Referred By Sonny almonte Referred To Contact Orthopedics Diagnoses Wrist tendonitis Procedures CONSULT TO ORTHOPAEDICS OFFICE/OUTPATIENT [facility] MDM 60-74 MINUTES Erma Gonzalez PA-C [address] [place] [address] Referral ID Status Reason Start Date Expiration Date Visits Requested Visits Authorized [id number] Authorized PCP Requested Referral 11/05/2021 11/05/2022 1 1 Specialty Diagnoses / Procedures Referred By Contac t Referred To Contact XR IMAGING Diagnoses Nondisplaced fracture of distal phalanx of right index finger, initial encounter for closed fracture Procedures XR DIGIT GENERAL 3V FRONTAL/LAT/OBL RIGHT RADEX FINGR MINIMUM 2 VIEWS Erma Gonzalez PA-C [address] [place] [address] Xr Imaging Referral ID Status Reason Start Date Expiration Date Visits Requested Visits Authorized [id number] Pending Review Auto-Generat ed Referral 11/05/2021 12/05/2022 1 1 Specialty Diagnoses / Procedures Referred By Contac t Referred To Contact Orthopedics Diagnoses Thoracic spine pain Procedures CONSULT TO ORTHOPAEDICS OFFICE/OUTPATIENT [facility] 60-74 MINUTES Toni Barrera MD [address] [place] [address] Referral ID Status Reason Start Date Expiration Date Visits Requested Visits Authorized [id number] Authorized PCP Requested Referral 03/24/2022 03/24/2023 1 1 Specialty Diagnoses / Procedures Referred By Contac t Referred To Contact Physical Therapy Diagnoses Chronic back pain, unspecified back location, unspecified back pain laterality Kyphosis of thoracic region, unspecified kyphosis type Juan Rankin MD [address] [place] [phone] Referral ID Status Reason Start Date Expiration Date V isits Requested Visits Authorized [id number] New Request 04/12/2022 05/07/2023 1 1 Scheduling Instructions [facility] [address] 2nd [place] [address] Fax [facility] (Neck and Back Therapy) [address] [place], [place] [address] FAX [facility] [place] [address] [place] [address] [phone] FAX Outpatient [facility] [place] [address] [place] [address] [phone] FAX [facility] [address] [place] [address] FAX Physical Therapy at [facility] [address] [place], [place] [address] [phone] FAX [facility] [address] [place], [place] [address] [phone] FAX Continued on next page Outpatient Rehabilitation Outpatient [facility] [address] [place] [address] [phone] FAX [facility] [address] [facility], [address] [place] [address] FAX Specialty Diagnoses / Procedures Referred By Contac t Referred To Contact CT IMAGING Diagnoses RUQ abdominal pain Procedures CT ABD/PEL W IVCON CT ABD & PELVIS W/CONTRAST Dorita Larkin, TERRENCE.PROFESSOR OF PHYSICAL EDUCATION [address] [place] [address] Ct Imaging Referral ID Status Reason Start Date Expiration Date Visits Requested Visits Authorized [id number] Authorized Auto-Generat ed Referral 05/25/2022 07/09/2022 2 2 Specialty Diagnoses / Procedures Referred By Contac t Referred To Contact Podiatry Diagnoses Deformity of toe of right foot Procedures CONSULT TO PODIATRY OFFICE/OUTPATIENT [facility] 60-74 MINUTES Dorita Larkin, MEDIA LIBRARIAN.PROFESSOR OF PHYSICAL EDUCATION [address] [place] [address] Referral ID Status Reason Start Date Expiration Date Visits Requested Visits Authorized [id number] Authorized PCP Requested Referral 07/13/2022 07/13/2023 1 1 Specialty Diagnoses / Procedures Referred By Contac t Referred To Contact MR IMAGING Diagnoses Closed fracture of right foot, initial encounter Procedures MRI FOOT/TOES WO IVCON RIGHT MRI LOWER EXTREM OTH/THN JT W/O CONTR Jaxon Negrete [address] [place] [address] Mr Imaging Referral ID Status Reason Start Date Expiration Date Visits Requested Visits Authorized [id number] Pending Review Auto-Generat ed Referral 08/16/2022 09/15/2023 1 1 Specialty Diagnoses / Procedures Referred By Contac t Referred To Contact Diagnoses Preop exam for internal medicine Kyphosis of thoracic region, unspecified kyphosis type Procedures PREPARE TO TRANSFUSE OR RED BLOOD CELLS Nichol Yang, DO [address] [facility] [address] [place] [address] Referral ID Status Reason Start Date Expiration Date V isits Requested Visits Authorized [id number] New Request 01/03/2023 01/28/2024 1 1 Specialty Diagnoses / Procedures Referred By Contac t Referred To Contact MR IMAGING Diagnoses Closed fracture of right foot, initial encounter Procedures MRI FOOT/TOES WO IVCON RIGHT MRI LOWER EXTREM OTH/THN JT W/O CONTR Jaxon Negrete [address] [place] [address] [place] [address] Referral ID Status Reason Start Date Expiration Date V isits Requested Visits Authorized [id number] Closed Auto-Generate d Referral 2022 10/17/2022 1 1 Specialty Diagnoses / Procedures Referred By Contac t Referred To Contact Procedures PLATELET MONITORING PER PROTOCOL Juan Rankin MD [address] [place] [address] Referral ID Status Reason Start Date Expiration Date V isits Requested Visits Authorized [id number] New Request 01/17/2023 02/11/2024 1 1 Specialty Diagnoses / Procedures Referred By Contac t Referred To Contact Procedures DVT/VTE RISK ASSESSMENT Juan Rankin MD [address] [place] [address] Referral ID Status Reason Start Date Expiration Date V isits Requested Visits Authorized [id number] New Request 01/17/2023 02/11/2024 1 1 Specialty Diagnoses / Procedures Referred By Contac t Referred To Contact [facility] [address] [place] [phone] Referral ID Status Reason Start Date Expiration Date Visits Re quested Visits Authorized Specialty Diagnoses / Procedures Referred By Contac t Referred To Contact Procedures NO MECHANICAL DVT PROPHYLAXIS Juan Rankin MD [address] [place] [address] Referral ID Status Reason Start Date Expiration Date V isits Requested Visits Authorized [id number] New Request 01/17/2023 02/11/2024 1 1 Specialty Diagnoses / Procedures Referred By Contac t Referred To Contact Procedures LOW RISK - NO PHARMACOLOGICAL DVT PROPHYLAXIS Juan Rankin MD [address] [place] [phone] Referral ID Status Reason Start Date Expiration Date V isits Requested Visits Authorized [id number] New Request 01/17/2023 02/11/2024 1 1 Referral ID Status Reason Start Date Expiration Date V isits Requested Visits Authorized [id number] New Request 01/17/2023 02/11/2024 1 1 Specialty Diagnoses / Procedures Referred By Contac t Referred To Contact Physical Therapy Diagnoses S/P spinal surgery Juan Rankin MD [address] [place] [phone] Referral ID Status Reason Start Date Expiration Date V isits Requested Visits Authorized [id number] New Request 03/03/2023 03/27/2024 1 1 Scheduling Instructions [facility] [address] [place], [place] [id number] Fax [facility] (Neck and Back Therapy) [address] [place] [address] [phone] FAX [facility] [address] [place] [address] [phone] FAX Outpatient Rehabilitation [facility] [place] [address] [place] [address] [phone] FAX [facility] [address] [place] [address] [phone] FAX Physical Therapy at [facility] [address], [address] [place] [address] [phone] FAX [facility] [address] [place] [address] [phone] FAX Outpatient Rehabilitation Outpatient Care [address], [address] [place] [address] [phone] FAX [facility] [address], [address] [place] [address] [phone] FAX [facility] at [address], Room: B[address] [place] [address] FAX [facility] [place] [address], [address] [place] [address] FAX [facility] [address] [place] [address] [phone] FAX [facility] at [facility]patient [facility] [place] [address], [address] [place] [address] [phone] FAX [facility] [address], [address] [place] [address] FAX Outpatient Rehabilitation Outpatient Care [place] [address], [address] [place] [address] FAX [facility] [address], [address] [place] [address] [phone] FAX [facility] [place] [address], [place] [address] FAX [facility] [address] [place] [address] [phone] FAX Outpatient Rehabilitation Outpatient Care [address], [address] [place] [address] [phone] FAX [facility] at [facility] [address] [place] [address] FAX Outpatient Care [address] [id number] FAX [facility] at [facility], Room [address] [place] [address] FAX Specialty Diagnoses / Procedures Referred By Contac t Referred To Contact Physical Therapy Diagnoses S/P fusion of thoracic spine Scheuermann's kyphosis Juan Rankin MD [address] [place] [address] Referral ID Status Reason Start Date Expiration Date V isits Requested Visits Authorized [id number] New Request 04/14/2023 05/08/2024 1 1 Scheduling Instructions Miki Childress [facility] [place] (Orthopedic, Sports Rehab) [address], [address], [place] [address] Outpatient Care [place] (Burn, Neurological, Orthopedic, Pelvic Health, Sports Rehab) [address] [place] [address], [address], [place] [address] Outpatient Care [facility] (Orthopedic Rehab) [address] [facility], [address], [place] [address] Outpatient Care [place] (Orthopedic, Pelvic Health, Sports) [address] [facility], [address], [place] [address] Outpatient [facility] [place] - [facility] [address] [facility], [address], [place] [address] Outpatient Care [place] (Orthopedic, Pelvic Health, Sports Rehab) [address], [address], [place] [address] Outpatient Care [place] (Aquatic, Burn, Neurological, Orthopedic, Pelvic Health Rehab) [address] [facility] [address], [place] [address] Outpatient Care [place] (Burn, Neurological, Orthopedic, Pelvic Health, Sports Rehab) [address], [address], [place] [address] Outpatient Rehabilitation [facility] (Burn, Neurological, Orthopedic Rehab) [address] [place] [address] Outpatient Rehabilitation [facility] (Aquatic, Burn, Neurological, Orthopedic, Pelvic Health Rehab) [address] , [place] [address] Outpatient Rehabilitation [place] (Burn, Neurological, Orthopedic Rehab) [address] [place] [address] Sports Medicine Rehabilitation at [facility] (Orthopedic, Sports Rehab) [address] [facility], [address], [place] [address] Sports Medicine Rehabilitation [facility] (Orthopedic, Sports Rehab) [address], [address], [place] [address] Sports Medicine Rehabilitation [facility] (Orthopedic, Sports Rehab) [address], [place] [address] Sports Medicine Rehabilitation [facility] (Aquatic, Orthopedic, Pelvic Health, Sports Rehab) [address], [place] [address] Sports Medicine Rehabilitation [facility] (Orthopedic, Sports Rehab) [address] [place] [address] Sports Medicine Rehabilitation [facility] (Orthopedic, Sports Rehab) [address] [place] [address] Mian Caro [facility], [address], [place] [address] Specialty Diagnoses / Procedures Referred By Contac t Referred To Contact Diagnoses S/P fusion of thoracic spine Scheuermann's kyphosis Scapular dyskinesis Pain from implanted hardware, sequela Procedures MRI SPINE THORACIC WITH AND WITHOUT CONTRAST CHG MRI SPINAL CANAL THORACIC W/O & W/CONTR MATRL Amber Salguero Jr., PA-C [address] [facility] [address] [place] [phone] Referral ID Status Reason Start Date Expiration Date Visits Re quested Visits Authorized [id number] Closed 08/03/2023 08/27/2024 1 1 Specialty Diagnoses / Procedures Referred By Contac t Referred To Contact Diagnoses Scheuermann's kyphosis S/P lumbar spinal fusion Procedures CT SPINE LUMBAR WITHOUT CONTRAST CHG CT LUMBAR SPINE W/O CONTRAST MATERIAL Amber Salguero Jr., PA-C [address] [place] [phone] Referral ID Status Reason Start Date Expiration Date Visits Re quested Visits Authorized [id number] Closed 01/31/2024 02/24/2025 1 1 Specialty Diagnoses / Procedures Referred By Sonny almonte Referred To Contact Diagnoses Scheuermann's kyphosis S/P fusion of thoracic spine Procedures CT SPINE THORACIC WITHOUT CONTRAST CHG CT THORACIC SPINE W/O CONTRAST MATERIAL Jose M Mcbride, Amber Luque, GI [address] [facility] [address] [place] [phone] Referral ID Status Reason Start Date Expiration Date Visits Re quested Visits Authorized [id number] Closed 01/31/2024 02/24/2025 1 1 Chief Complaint and Reason for Visit Chief Complaint CHRONIC BACK PAIN/PT HASRX. 2-KNEE. 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 2-KNEE. 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) abdominal pain Reason for Visit Pain in left tibia Toe fracture, right Laceration of knee Laceration of knee Pain in left tibia Encounter for routine gynecological examination Chief Complaint DEPO SCHEUERMANN DISEASE RX HERE DEPO HYPOTENSION Reason for Visit Contraception manage ment Ovarian cyst Contraception management Chief Complaint SCHEUERMANN DISEASE RX HERE DEPO HYPOTENSION Complication of surgical and medical care, unspeci Reason for Visit Contraception manage ment Chief Complaint HYPOTENSION Complication of surgical and medical care, unspeci XRAY depo SPINE RX HERE Reason for Visit Contraception manage ment Chief Complaint Admit Date DEPO May 17, 2024 2:2 5pm DEPO August 16, 2024 2:48 pm Additional Source Comments INFORMATION SOURCE (unrecogn ized section and content) DATE CREATED AUTHOR 08/25/[address] [facility] DATE CREATED AUTHOR AUTHOR'S ORGANIZ ATION 04/10/2024 [facility] DATE CREATED AUTHOR AUTHOR'S ORGANIZ ATION 06/18/2024 [facility] DATE CREATED AUTHOR AUTHOR'S ORGANIZ ATION 08/19/2024 [facility] DATE CREATED AUTHOR AUTHOR'S ORGANIZ ATION 09/04/2024 [facility] Source Comments (unrecognize d section and content) In the event this informatio n is protected by the Federal Confidentiality of Alcohol and Drug Abuse Patient Records regulations: The Federal rules restrict any use of the information to criminally investigate or prosecute any alcohol or drug abuse patient.[facility] the event this information is protected by the Federal Confidentiality of Alcohol and Drug Abuse Patient Records regulations: The Federal rules restrict any use of the information to criminally investigate or prosecute any alcohol or drug abuse patient.[facility] CenterIn the event this information is protected by the Federal Confidentiality of Alcohol and Drug Abuse Patient Records regulations: The Federal rules restrict any use of the information to criminally investigate or prosecute any alcohol or drug abuse patient.[facility] CenterIn the event this information is protected by the Federal Confidentiality of Alcohol and Drug Abuse Patient Records regulations: The Federal rules restrict any use of the information to criminally investigate or prosecute any alcohol or drug abuse patient.[facility] CenterIn the event this information is protected by the Federal Confidentiality of Alcohol and Drug Abuse Patient Records regulations: The Federal rules restrict any use of the information to criminally investigate or prosecute any alcohol or drug abuse patient.[facility] CenterIn the event this information is protected by the Federal Confidentiality of Alcohol and Drug Abuse Patient Records regulations: The Federal rules restrict any use of the information to criminally investigate or prosecute any alcohol or drug abuse patient.[facility] CenterIn the event this information is protected by the Federal Confidentiality of Alcohol and Drug Abuse Patient Records regulations: The Federal rules restrict any use of the information to criminally investigate or prosecute any alcohol or drug abuse patient.[facility] CenterIn the event this information is protected by the Federal Confidentiality of Alcohol and Drug Abuse Patient Records regulations: The Federal rules restrict any use of the information to criminally investigate or prosecute any alcohol or drug abuse patient.[facility] CenterIn the event this information is protected by the Federal Confidentiality of Alcohol and Drug Abuse Patient Records regulations: The Federal rules restrict any use of the information to criminally investigate or prosecute any alcohol or drug abuse patient.[facility] CenterIn the event this information is protected by the Federal Confidentiality of Alcohol and Drug Abuse Patient Records regulations: The Federal rules restrict any use of the information to criminally investigate or prosecute any alcohol or drug abuse patient.[facility] CenterIn the event this information is protected by the Federal Confidentiality of Alcohol and Drug Abuse Patient Records regulations: The Federal rules restrict any use of the information to criminally investigate or prosecute any alcohol or drug abuse patient.[facility] CenterIn the event this information is protected by the Federal Confidentiality of Alcohol and Drug Abuse Patient Records regulations: The Federal rules restrict any use of the information to criminally investigate or prosecute any alcohol or drug abuse patient.[facility] CenterIn the event this information is protected by the Federal Confidentiality of Alcohol and Drug Abuse Patient Records regulations: The Federal rules restrict any use of the information to criminally investigate or prosecute any alcohol or drug abuse patient.[facility] CenterIn the event this information is protected by the Federal Confidentiality of Alcohol and Drug Abuse Patient Records regulations: The Federal rules restrict any use of the information to criminally investigate or prosecute any alcohol or drug abuse patient.[facility] CenterIn the event this information is protected by the Federal Confidentiality of Alcohol and Drug Abuse Patient Records regulations: The Federal rules restrict any use of the information to criminally investigate or prosecute any alcohol or drug abuse patient.[facility] CenterIn the event this information is protected by the Federal Confidentiality of Alcohol and Drug Abuse Patient Records regulations: The Federal rules restrict any use of the information to criminally investigate or prosecute any alcohol or drug abuse patient.[facility] CenterIn the event this information is protected by the Federal Confidentiality of Alcohol and Drug Abuse Patient Records regulations: The Federal rules restrict any use of the information to criminally investigate or prosecute any alcohol or drug abuse patient.[facility] CenterIn the event this information is protected by the Federal Confidentiality of Alcohol and Drug Abuse Patient Records regulations: The Federal rules restrict any use of the information to criminally investigate or prosecute any alcohol or drug abuse patient.[facility] CenterIn the event this information is protected by the Federal Confidentiality of Alcohol and Drug Abuse Patient Records regulations: The Federal rules restrict any use of the information to criminally investigate or prosecute any alcohol or drug abuse patient.[facility] CenterIn the event this information is protected by the Federal Confidentiality of Alcohol and Drug Abuse Patient Records regulations: The Federal rules restrict any use of the information to criminally investigate or prosecute any alcohol or drug abuse patient.[facility] CenterIn the event this information is protected by the Federal Confidentiality of Alcohol and Drug Abuse Patient Records regulations: The Federal rules restrict any use of the information to criminally investigate or prosecute any alcohol or drug abuse patient.[facility] CenterIn the event this information is protected by the Federal Confidentiality of Alcohol and Drug Abuse Patient Records regulations: The Federal rules restrict any use of the information to criminally investigate or prosecute any alcohol or drug abuse patient.[facility] CenterIn the event this information is protected by the Federal Confidentiality of Alcohol and Drug Abuse Patient Records regulations: The Federal rules restrict any use of the information to criminally investigate or prosecute any alcohol or drug abuse patient.[facility] CenterIn the event this information is protected by the Federal Confidentiality of Alcohol and Drug Abuse Patient Records regulations: The Federal rules restrict any use of the information to criminally investigate or prosecute any alcohol or drug abuse patient.[facility] CenterIn the event this information is protected by the Federal Confidentiality of Alcohol and Drug Abuse Patient Records regulations: The Federal rules restrict any use of the information to criminally investigate or prosecute any alcohol or drug abuse patient.[facility] CenterIn the event this information is protected by the Federal Confidentiality of Alcohol and Drug Abuse Patient Records regulations: The Federal rules restrict any use of the information to criminally investigate or prosecute any alcohol or drug abuse patient.[facility] CenterIn the event this information is protected by the Federal Confidentiality of Alcohol and Drug Abuse Patient Records regulations: The Federal rules restrict any use of the information to criminally investigate or prosecute any alcohol or drug abuse patient.[facility] CenterIn the event this information is protected by the Federal Confidentiality of Alcohol and Drug Abuse Patient Records regulations: The Federal rules restrict any use of the information to criminally investigate or prosecute any alcohol or drug abuse patient.[facility] CenterIn the event this information is protected by the Federal Confidentiality of Alcohol and Drug Abuse Patient Records regulations: The Federal rules restrict any use of the information to criminally investigate or prosecute any alcohol or drug abuse patient.[facility] CenterIn the event this information is protected by the Federal Confidentiality of Alcohol and Drug Abuse Patient Records regulations: The Federal rules restrict any use of the information to criminally investigate or prosecute any alcohol or drug abuse patient.[facility] CenterIn the event this information is protected by the Federal Confidentiality of Alcohol and Drug Abuse Patient Records regulations: The Federal rules restrict any use of the information to criminally investigate or prosecute any alcohol or drug abuse patient.[facility] CenterIn the event this information is protected by the Federal Confidentiality of Alcohol and Drug Abuse Patient Records regulations: The Federal rules restrict any use of the information to criminally investigate or prosecute any alcohol or drug abuse patient.[facility] CenterIn the event this information is protected by the Federal Confidentiality of Alcohol and Drug Abuse Patient Records regulations: The Federal rules restrict any use of the information to criminally investigate or prosecute any alcohol or drug abuse patient.[facility] CenterIn the event this information is protected by the Federal Confidentiality of Alcohol and Drug Abuse Patient Records regulations: The Federal rules restrict any use of the information to criminally investigate or prosecute any alcohol or drug abuse patient.[facility] CenterIn the event this information is protected by the Federal Confidentiality of Alcohol and Drug Abuse Patient Records regulations: The Federal rules restrict any use of the information to criminally investigate or prosecute any alcohol or drug abuse patient.[facility] CenterIn the event this information is protected by the Federal Confidentiality of Alcohol and Drug Abuse Patient Records regulations: The Federal rules restrict any use of the information to criminally investigate or prosecute any alcohol or drug abuse patient.[facility] CenterIn the event this information is protected by the Federal Confidentiality of Alcohol and Drug Abuse Patient Records regulations: The Federal rules restrict any use of the information to criminally investigate or prosecute any alcohol or drug abuse patient.[facility] CenterIn the event this information is protected by the Federal Confidentiality of Alcohol and Drug Abuse Patient Records regulations: The Federal rules restrict any use of the information to criminally investigate or prosecute any alcohol or drug abuse patient.[facility] CenterIn the event this information is protected by the Federal Confidentiality of Alcohol and Drug Abuse Patient Records regulations: The Federal rules restrict any use of the information to criminally investigate or prosecute any alcohol or drug abuse patient.[facility] CenterIn the event this information is protected by the Federal Confidentiality of Alcohol and Drug Abuse Patient Records regulations: The Federal rules restrict any use of the information to criminally investigate or prosecute any alcohol or drug abuse patient.[facility] CenterIn the event this information is protected by the Federal Confidentiality of Alcohol and Drug Abuse Patient Records regulations: The Federal rules restrict any use of the information to criminally investigate or prosecute any alcohol or drug abuse patient.[facility] CenterIn the event this information is protected by the Federal Confidentiality of Alcohol and Drug Abuse Patient Records regulations: The Federal rules restrict any use of the information to criminally investigate or prosecute any alcohol or drug abuse patient.[facility] CenterIn the event this information is protected by the Federal Confidentiality of Alcohol and Drug Abuse Patient Records regulations: The Federal rules restrict any use of the information to criminally investigate or prosecute any alcohol or drug abuse patient.[facility] CenterIn the event this information is protected by the Federal Confidentiality of Alcohol and Drug Abuse Patient Records regulations: The Federal rules restrict any use of the information to criminally investigate or prosecute any alcohol or drug abuse patient.[facility] CenterIn the event this information is protected by the Federal Confidentiality of Alcohol and Drug Abuse Patient Records regulations: The Federal rules restrict any use of the information to criminally investigate or prosecute any alcohol or drug abuse patient.[facility] CenterIn the event this information is protected by the Federal Confidentiality of Alcohol and Drug Abuse Patient Records regulations: The Federal rules restrict any use of the information to criminally investigate or prosecute any alcohol or drug abuse patient.[facility] CenterIn the event this information is protected by the Federal Confidentiality of Alcohol and Drug Abuse Patient Records regulations: The Federal rules restrict any use of the information to criminally investigate or prosecute any alcohol or drug abuse patient.[facility] CenterIn the event this information is protected by the Federal Confidentiality of Alcohol and Drug Abuse Patient Records regulations: The Federal rules restrict any use of the information to criminally investigate or prosecute any alcohol or drug abuse patient.[facility] CenterIn the event this information is protected by the Federal Confidentiality of Alcohol and Drug Abuse Patient Records regulations: The Federal rules restrict any use of the information to criminally investigate or prosecute any alcohol or drug abuse patient.[facility] CenterIn the event this information is protected by the Federal Confidentiality of Alcohol and Drug Abuse Patient Records regulations: The Federal rules restrict any use of the information to criminally investigate or prosecute any alcohol or drug abuse patient.[facility] CenterIn the event this information is protected by the Federal Confidentiality of Alcohol and Drug Abuse Patient Records regulations: The Federal rules restrict any use of the information to criminally investigate or prosecute any alcohol or drug abuse patient.[facility] CenterIn the event this information is protected by the Federal Confidentiality of Alcohol and Drug Abuse Patient Records regulations: The Federal rules restrict any use of the information to criminally investigate or prosecute any alcohol or drug abuse patient.[facility] CenterIn the event this information is protected by the Federal Confidentiality of Alcohol and Drug Abuse Patient Records regulations: The Federal rules restrict any use of the information to criminally investigate or prosecute any alcohol or drug abuse patient.[facility] CenterIn the event this information is protected by the Federal Confidentiality of Alcohol and Drug Abuse Patient Records regulations: The Federal rules restrict any use of the information to criminally investigate or prosecute any alcohol or drug abuse patient.[facility] Reason for Visit (unrecogniz ed section and content) Reason Comments Covid19 Concern Reason Comments ER F/U Reason Comments New Pain New Bilateral wrist tend onitisRight index finger fx Pain Bilateral wrist tend onitisRight index finger fx Specialty Diagnoses / Procedures Referred By Sonny almonte Referred To Contact Orthopedics Diagnoses Wrist tendonitis Procedures CONSULT TO ORTHOPAEDICS OFFICE/OUTPATIENT NEW HIGH MDM 60-74 MINUTES Erma Gonzalez PA-C [address] [place] [address] Referral ID Status Reason Start Date Expiration Date V isits Requested Visits Authorized [id number] Closed PCP Requested Referral 11/05/2021 11/05/2022 1 1 Reason Comments Sinusitis Reason Comments Sore Throat Reason Comments Back Pain Reason Comments Pain Mid back pain x whol e life with NKI. Pain located entire thoracic back, also describes posterior shoulder pain w/ cervical pain. Reports intermittent n/t into BL UE, the R>L. Agg w/ sitting/laying/standing for prolonged periods of time, unable to extend, forward flexion. [place]: PT (2yrs ago), naproxen, topical cream. RHD. 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 2 [place] [address] [facility] [address] [place] [address] Referral ID Status Reason Start Date Expiration Date V isits Requested Visits Authorized [id number] Pending Review 04/01/2022 04/26/2023 1 1 Reason Comments Physical Therapy Reason Comments Fall Patient fell off a l adder 4 days ago. Having back and neck pain Reason Comments Results Reason Comments Cough Sore Throat Reason Comments Follow-up Reason Comments Outside PT/OT Discharge summary Reason Comments Pain Pain in both feet, m ostly right foot. She fell off ladder and broke three toes a few months back, stopped going to [employer] because did not like him, hurts to walk and they are rubbing together, causing limping by the end of the day In both feet, the heels are hurting with sharp pains that feel like cramping causing her to have a hard time walking Reason Comments New Fracture Pain Specialty Diagnoses / Procedures Referred By Sonny almonte Referred To Contact Podiatry Diagnoses Deformity of toe of right foot Procedures CONSULT TO PODIATRY OFFICE/OUTPATIENT NEW HIGH MDM 60-74 MINUTES Dorita Larkin APRN.PROFESSOR OF PHYSICAL EDUCATION [address] [place] [address] Referral ID Status Reason Start Date Expiration Date V isits Requested Visits Authorized [id number] Closed PCP Requested Referral 07/13/2022 07/13/2023 1 1 Reason Comments Bh consult Reason Comments Sleep Problem Nightmares and pain preventing her from sleeping. 4-5 months issues with sleep. Nightmares 3-4 nights weekly for 2-3 months. Reports drenched with sweat when she wakes up. Reason Comments bone stim Reason Comments Follow-up Pre-op Exam Reason Comments Medication Question Reason Comments Pain Severe back pain- pa valerie's surgeon is in [place]. Unable to get into pain management. And unable to find relief. PT advised PT ER won't do anything for her otherwise she'd go there. Reason Comments Pre-operative Consultation Specialty Diagnoses / Procedures Referred By Sonny almonte Referred To Contact PreOp Diagnoses Kyphosis of thoracic region, unspecified kyphosis type Juan Rankin MD [address] [place] [phone] Referral ID Status Reason Start Date Expiration Date V isits Requested Visits Authorized [id number] New Request 08/20/2022 09/14/2023 1 1 Specialty Diagnoses / Procedures Referred By Sonny almonte Referred To Contact MR IMAGING Diagnoses Closed fracture of right foot, initial encounter Procedures MRI FOOT/TOES WO IVCON RIGHT MRI LOWER EXTREM OTH/THN JT W/O CONTR Jaxon Negrete [address] [place] [address] [place] [address] Referral ID Status Reason Start Date Expiration Date V isits Requested Visits Authorized [id number] Closed Auto-Generate d Referral 2022 10/17/2022 1 1 Specialty Diagnoses / Procedures Referred By Contac t Referred To Contact CT IMAGING Diagnoses RUQ abdominal pain Procedures CT ABD/PEL W IVCON CT ABD & PELVIS W/CONTRAST Dorita Larkin, MEDIA LIBRARIAN.PROFESSOR OF PHYSICAL EDUCATION [address] [place] [address] [place] [address] Referral ID Status Reason Start Date Expiration Date V isits Requested Visits Authorized [id number] Closed Auto-Generate d Referral 05/25/2022 07/09/2022 2 2 Specialty Diagnoses / Procedures Referred By Contac t Referred To Contact Diagnoses Kyphosis of thoracic region, unspecified kyphosis type Kyphosis of thoracic region, unspecified kyphosis type [M40.204] Procedures PA ARTHRODESIS POSTERIOR/PSTLAT TQ 1NTRSPC THORACIC PA ARTHRODESIS POSTERIOR/PSTLAT TQ 1NTRSPC LUMBAR PA ARTHRODESIS PST/PSTLAT TQ 1NTRSPC EA ADDL NTRSPC PA INSERT VERT FIX DEV,POST,13+ SGMTS OSTEOTOMY SPINE POSTERIOR 3 COLUMN LUMBAR PA STEREOTACTIC COMP ASSIST PROC,SPINAL FUSION POSTERIOR THORACIC FUSION POSTERIOR LUMBAR FUSION POSTERIOR LUMBAR EACH ADDL INTERSPACE ADD-ON PX INSERTION SPINAL INSTRUMENTATION POSTERIOR SEGMENTAL ADD-ON PX (IP ONLY) OSTEOTOMY SPINE 3 COLUMNS POSTERIOR APPROACH 1 VERTEBRAL SEGMENT LUMBAR ASSISTANCE STEREOTACTIC NAVIGATION SPINAL ADD-ON PX Juan Rankin MD [address] [place] [address] [facility] [address] [place] [address] Referral ID Status Reason Start Date Expiration Date Visits Re quested Visits Authorized [id number] 1 1 Reason Comments b/p drops Pt states had back s urgery b/p drops real low woke up with this happening after surgery. Reason Comments ED Follow-up Reason Comments Follow-up Reason Comments Sore Throat Headache Head Congestion Reason Comments Fax to [facility] Reason Comments Outside PT Reason Comments Cough Chest Congestion Ear Pain Specialty Diagnoses / Procedures Referred By Contac t Referred To Contact Diagnoses S/P fusion of thoracic spine Scheuermann's kyphosis Scapular dyskinesis Pain from implanted hardware, sequela Procedures MRI SPINE THORACIC WITH AND WITHOUT CONTRAST CHG MRI SPINAL CANAL THORACIC W/O & W/CONTR MATRL Amber Salguero Jr., PA-C [address] [facility] [place] [address] Referral ID Status Reason Start Date Expiration Date Visits Re quested Visits Authorized [id number] Closed 08/03/2023 08/27/2024 1 1 Reason Comments Physical Specialty Diagnoses / Procedures Referred By Contac t Referred To Contact Diagnoses Scheuermann's kyphosis S/P lumbar spinal fusion Procedures CT SPINE LUMBAR WITHOUT CONTRAST CHG CT LUMBAR SPINE W/O CONTRAST MATERIAL Amber Salguero Jr., PA-C [address] [facility] [place] [address] Referral ID Status Reason Start Date Expiration Date Visits Re quested Visits Authorized [id number] Closed 01/31/2024 02/24/2025 1 1 Specialty Diagnoses / Procedures Referred By Contac t Referred To Contact Diagnoses Scheuermann's kyphosis S/P fusion of thoracic spine Procedures CT SPINE THORACIC WITHOUT CONTRAST CHG CT THORACIC SPINE W/O CONTRAST MATERIAL Amber Salguero Jr., PA-C [address] [facility] [place] [address] Referral ID Status Reason Start Date Expiration Date Visits Re quested Visits Authorized [id number] Closed 01/31/2024 02/24/2025 1 1 Reason Comments Follow-up CT(04/04) f/u Lumbar/ Thoracic 14m-s/p Lumbothoracic fusion-Notes lower cervical/upper thoracic painBilateral UE pain in shoulders RIGHT> L, (Right hand dominant) w/ bilateral radicular R>L, Right 3rd finger> than rest. Last PT May 2023, pt dismissed. Pain 6/10 current and up to 11/14. [facility] PM only MRI Results CT(04/04) f/u Lumbar/ Thoracic 14m-s/p Lumbothoracic fusion-Notes lower cervical/upper thoracic painBilateral UE pain in shoulders RIGHT> L, (Right hand dominant) w/ bilateral radicular R>L, Right 3rd finger> than rest. Last PT May 2023, pt dismissed. Pain 6/10 current and up to 11/14. [facility]os[facility] PM only Follow-up Pt reports lower tim k/lumbar LEFT>R centered and across lower third w/ No LE symptoms. Rotational mechanism causing pain Pain 2/10 current up to 11/14. Reason Comments Anxiety Reason Onset Date Comments Results 06/25/2024 Reason Comments Dental Problem R side tooth pain x2 days Reason Comments Follow Up Reason Onset Date Comments Refill Request 07/20/2024 Reason Comments Derm Problem Had mole removed x7 days ago on right arm. Worried it is infected. Reason Comments Follow Up Care Teams (unrecognized sec tion and content) Wardrobe Technician Relationship Specialty Start Date End Date Toni Barrera MD [facility] [place] [address] PCP - General Family Practice 04/22/20 Wardrobe Technician Relationship Specialty Start Date End Date Toni Barrera MD [address] [place] [address] PCP - General Family Practice 04/22/20 Wardrobe Technician Relationship Specialty Start Date End Date Toni Barrera MD [address] [place] [address] PCP - General Family Medicine 04/22/20 Wardrobe Technician Relationship Specialty Start Date End Date Toni Barrera MD [address] [place] [address] PCP - General Family Medicine 04/22/20 Wardrobe Technician Relationship Specialty Start Date End Date Toni Barrera MD [address] [place] [address] PCP - General Family Medicine 04/22/20 Wardrobe Technician Relationship Specialty Start Date End Date Toni Barrera MD [address] [place] [address] PCP - General Family Medicine 04/22/20 Wardrobe Technician Relationship Specialty Start Date End Date Toni Barrera MD [address] [place] [address] PCP - General Family Medicine 04/22/20 Wardrobe Technician Relationship Specialty Start Date End Date Toni Barrera MD [address] [place] [address], [place] [address] PCP - General Family Medicine 04/22/20 Wardrobe Technician Relationship Specialty Start Date End Date Toni Barrera MD [address] [place] [address], [place] [address] PCP - General Family Medicine 04/22/20 Wardrobe Technician Relationship Specialty Start Date End Date Toni Barrera MD [address] [place] [address] PCP - General Family Medicine 04/22/20 Wardrobe Technician Relationship Specialty Start Date End Date Toni Barrera MD [address] [place] [address], [place] [address] PCP - General Family Medicine 04/22/20 Wardrobe Technician Relationship Specialty Start Date End Date Toni Barrera MD [address] [place] [address] [place] [address] PCP - General Family Medicine 04/22/20 Wardrobe Technician Relationship Specialty Start Date End Date Toni Barrera MD [address] [place] [address], [place] [address] PCP - General Family Medicine 04/22/20 Wardrobe Technician Relationship Specialty Start Date End Date Toni Barrera MD [address] [place] [address] PCP - General Family Medicine 05/27/22 Team Status: Active Member Role Status Dates No Primary Care Physician Family Provider Active Dr. Toni Barrera MD Primary Care Provider Active Team Status: Active Member Role Status Dates Dr. Toni Barrera MD Primary Care Provider Active Dr. Kuldeep Emanuel DO Emergency Provider Active Solis Gonsalez MD Attending Provider Active Team Status: Inactive Member Role Status Dates Dr. Toni Barrera MD Primary Care Provider, Referri ng Provider Active Solis Gonsalez MD Attending Provider Active Team Status: Inactive Member Role Status Dates Dr. Toni Barrera MD Primary Care Provider Active Dr. Josh Robb MD Attending Provider Active Team Status: Inactive Member Role Status Dates Dr. Toni Barrera MD Primary Care Provider, Referri ng Provider Active Elsi Waldrop CNM Attending Provider Active Team Status: Inactive Member Role Status Dates Dr. Toni Barrera MD Primary Care Provider Active HARLAN CRUZ Attending Provider, Referring Provider Active Team Status: Inactive Member Role Status Dates Dr. Toni Barrera MD Primary Care Provider Active Dr. Kuldeep Emanuel DO Attending Provider, Emergency Provide r Active Team Status: Active Member Role Status Dates Dr. Toni Barrera MD Primary Care Provider Active Elsi Waldrop CNM Attending Provider, Referring Pr ovider Active Team Status: Inactive Member Role Status Dates Dr. Toni Barrera MD Primary Care Provider Active Elsi Waldrop CNM Attending Provider, Referring Pr ovider Active Team Status: Inactive Member Role Status Dates Dr. Toni Barrera MD Primary Care Provider Active Dr. Kuldeep Emanuel DO Emergency Provider Active Wardrobe Technician Relationship Specialty Start Date End Date Toni Barrera MD [address] [place] [address] PCP - General Family Medicine 04/22/20 Wardrobe Technician Relationship Specialty Start Date End Date Toni Barrera MD [address] [place] [address] PCP - General Family Medicine 04/22/20 Wardrobe Technician Relationship Specialty Start Date End Date Toni Barrera MD [address] [place] [address] PCP - General Family Medicine 04/22/20 Wardrobe Technician Relationship Specialty Start Date End Date Toni Barrera MD [address] [place] [address] PCP - General Family Medicine 04/22/20 Wardrobe Technician Relationship Specialty Start Date End Date Toni Barrera MD [address] [place] [address] PCP - General Family Medicine 04/22/20 Wardrobe Technician Relationship Specialty Start Date End Date Toni Barrera MD [address] [place] [address] PCP - General Family Medicine 05/27/22 Wardrobe Technician Relationship Specialty Start Date End Date Toni Barrera MD [address] [place] [address] PCP - General Family Medicine 05/27/22 Wardrobe Technician Relationship Specialty Start Date End Date Toni Barrera MD [address] [place] [address] PCP - General Family Medicine 04/22/20 Wardrobe Technician Relationship Specialty [place] [address] [place] [address] PCP - General Family Medicine 04/22/20 Wardrobe Technician Relationship Specialty Start Date End Date Toni Barrera MD [address] [place] [address] PCP - General Family Medicine 04/22/20 Wardrobe Technician Relationship Specialty Start Date End Date Toni Barrera MD [address] [place] [address] PCP - General Family Medicine 05/27/22 Wardrobe Technician Relationship Specialty Start Date End Date Toni Barrera MD [address] [place] [address] PCP - General Family Medicine 05/27/22 Wardrobe Technician Relationship Specialty Start Date End Date Toni Barrera MD [address] [place] [address] PCP - General Family Medicine 04/22/20 Wardrobe Technician Relationship Specialty Start Date End Date Toni Barrera MD [address] [place] [address] PCP - General Family Medicine 04/22/20 Wardrobe Technician Relationship Specialty Start Date End Date Toni Barrera MD [address] [place] [address] PCP - General Family Medicine 04/22/20 Wardrobe Technician Relationship Specialty Start Date End Date Toni Barrera MD [address] [place] [address] PCP - General Family Medicine 04/22/20 Wardrobe Technician Relationship Specialty Start Date End Date Toni Barrera MD [address] [place] [address] PCP - General Family Medicine 05/27/22 Team Status: Inactive Member Role Status Dates Dr. Toni Barrera MD Primary Care Provider, Referri ng Provider Active Deanna Parry SALESPERSON HANDBAGS, SALESPERSON HANDBAGS-C Attending Provider Active Team Status: Active Member Role Status Dates Dr. Toni Barrera MD Primary Care Provider Active JOE LIVINGSTON Attending Provider, Referring Provider Ac tive Team Status: Inactive Member Role Status Dates Dr. Toni Barrera MD Primary Care Provider Active Dr. Yovany Zheng MD Emergency Provider Active Wardrobe Technician Relationship Specialty Start Date End Date Toni Barrera MD [facility] [place] [address] PCP - General Family Medicine 04/22/20 Wardrobe Technician Relationship Specialty Start Date End Date Toni Barrera MD [address] [place] [address] PCP - General Family Medicine 04/22/20 Team Status: Inactive Member Role Status Dates Dr. Toni Barrera MD Primary Care Provider Active Dr. Yovany Zheng MD Attending Provider, Emergency Provi moustapha Active Team Status: Inactive Member Role Status Dates Dr. Toni Barrera MD Primary Care Provider Active Dorita Larkin , SALESPERSON HANDBAGS-C Attending Provider, Kassidy anderson Active Wardrobe Technician Relationship Specialty Start Date End Date Toni Barrera MD [address] [place] [address] PCP - General Family Medicine 04/22/20 Wardrobe Technician Relationship Specialty Start Date End Date Toni Barrera MD [address] [place] [address] PCP - General Family Medicine 05/27/22 Wardrobe Technician Relationship Specialty Start Date End Date Toni Barrera MD [address] [place] [address] PCP - General Family Medicine 05/27/22 Wardrobe Technician Relationship Specialty Start Date End Date Toni Barrera MD [address] [place] [address] PCP - General Family Medicine 05/27/22 Wardrobe Technician Relationship Specialty Start Date End Date Toni Barrera MD [address] [place], [place] [address] PCP - General Family Medicine 05/27/22 Team Status: Active Member Role Status Dates Dr. Toni Barrera MD Primary Care Provider Active HARLAN CRUZ Attending Provider, Referring Provider Active Wardrobe Technician Relationship Specialty Start Date End Date Toni Barrera MD [address] [place] [address] PCP - General Family Medicine 04/22/20 Wardrobe Technician Relationship Specialty Start Date End Date Toni Barrera MD [address] [place] [address] PCP - General Family Medicine 04/22/20 Wardrobe Technician Relationship Specialty Start Date End Date Toni Barrera MD [address] [place] [address] PCP - General Family Medicine 04/22/20 Wardrobe Technician Relationship Specialty Start Date End Date Toni Barrera MD [address] [place] [address] PCP - General Family Medicine 04/22/20 Wardrobe Technician Relationship Specialty Start Date End Date Toni Barrera MD [address] [place] [address] PCP - General Family Medicine 04/22/20 Wardrobe Technician Relationship Specialty Start Date End Date Toni Barrera MD [address] [place] [address] PCP - General Family Medicine 04/22/20 Wardrobe Technician Relationship Specialty Start Date End Date Toni Barrera MD [address] [place] [address] PCP - General Family Medicine 04/22/20 Wardrobe Technician Relationship Specialty Start Date End Date Toni Barrera MD [address] [place], [place] [address] PCP - General Family Medicine 05/27/22 Wardrobe Technician Relationship Specialty Start Date End Date Toni Barrera MD [address] [place] [address] PCP - General Family Medicine 05/27/22 Wardrobe Technician Relationship Specialty Start Date End Date Toni Barrera MD [address] [place] [address] PCP - General Family Medicine 05/27/22 Wardrobe Technician Relationship Specialty Start Date End Date Toni Barrera MD [address] [place] [address] PCP - General Family Medicine 04/22/20 Wardrobe Technician Relationship Specialty Start Date End Date Toni Barrera MD [address] [place] [address] PCP - General Family Medicine 04/22/20 Wardrobe Technician Relationship Specialty Start Date End Date Toni Barrera MD [address] [place] [address] PCP - General Family Medicine 04/22/20 Wardrobe Technician Relationship Specialty Start Date End Date Toni Barrera MD [address] [place] [address] PCP - General Family Medicine 05/27/22 Wardrobe Technician Relationship Specialty Start Date End Date Toni Barrera MD [facility] [place] [address] PCP - General Family Medicine 05/27/22 Wardrobe Technician Relationship Specialty Start Date End Date Toni Barrera MD [address] [place] [address] PCP - General Family Medicine 04/22/20 Dorita Larkin APRN.PROFESSOR OF PHYSICAL EDUCATION [address] [place] [address] Pathology Specialist Family Medicine 02/11/24 Erma Gonzalez PA-C [address] [place] [address] Pathology Specialist Family Medicine 02/11/24 Wardrobe Technician Relationship Specialty Start Date End Date Toni Barrera MD [address] [place] [address] PCP - General Family Medicine 04/22/20 Dorita Larkni APRN.PROFESSOR OF PHYSICAL EDUCATION [address] [place] [address] Pathology Specialist Family Medicine 02/11/24 Erma Gonzalez PA-C [address] [place] [address] Pathology Specialist Family Medicine 02/11/24 Wardrobe Technician Relationship Specialty Start Date End Date Toni Barrera MD [address] [place] [address] PCP - General Family Medicine 04/22/20 Dorita Larkin MEDIA LIBRARIAN.PROFESSOR OF PHYSICAL EDUCATION [address] [place] [address] Pathology Specialist Family Medicine 02/11/24 Erma Gonzalez PA-C [address] [place] [address] Pathology Specialist Family Medicine 02/11/24 Wardrobe Technician Relationship Specialty Start Date End Date Toni Barrera MD [address] [place] [address] PCP - General Family Medicine 04/22/20 Dorita Larkin APRN.PROFESSOR OF PHYSICAL EDUCATION [address] [place] [address] Pathology Specialist Family Medicine 02/11/24 Erma Gonzalez PA-C [address] [place] [address] [facility] 02/11/24 Wardrobe Technician Relationship Specialty Start Date End Date Toni Barrera MD [address] [place] [address] PCP - General Family Medicine 04/22/20 Dorita Larkin APRN.PROFESSOR OF PHYSICAL EDUCATION [address] [place] [address] Pathology Specialist Family Medicine 02/11/24 Erma Gonzalez PA-C [address] [place] [address] [facility] Wardrobe Technician Relationship Specialty Start Date End Date Toni Barrera MD [address] [place] [address] PCP - General Family Medicine 04/22/20 Dorita Larkin APRN.PROFESSOR OF PHYSICAL EDUCATION [address] [place] [address] Pathology Specialist Family Medicine 08/06/24 Erma Gonzalez PA-C [address] [place], [place] 703971 [facility] 08/06/24 Team Status: Inactive Member Role Status Dates Dr. Toni Barrear MD Primary Care Provider Active Start: May 17, 2024 End: May 17, 2024 Dr. Toni Barrera MD Referring Provider Active Start: May 17, 2024 End: May 17, 2024 Dalila Prasad CNM Attending Provider Active S tart: May 17, 2024 End: May 17, 2024 Team Status: Inactive Member Role Status Dates Dr. Toni Barrera MD Primary Care Provider Active Start: August 16, 2024 End: August 16, 2024 Dr. Toni Barrera MD Referring Provider Active Start: August 16, 2024 End: August 16, 2024 Deanna Parry NP, SALESPERSON HANDBAGS-C Attending Provider Active Start: August 16, 2024 End: August 16, 2024 Wardrobe Technician Relationship Specialty Start Date End Date Toni Barrera MD [address] [place] [address] PCP - General Family Medicine 04/22/20 Dorita Larkin APRN.CNP [address] [place] [address] [id number] [facility] 08/06/24 Erma Gonzalez PA-C [address] [place] [address] [id number] [facility] 08/06/24 Goals (unrecognized section and content) Goals may be documented in a n alternate sectionGoals may be documented in an alternate sectionGoals may be documented in an alternate sectionGoals may be documented in an alternate sectionGoals may be documented in an alternate sectionGoals may be documented in an alternate sectionGoals may be documented in an alternate section Scheduled Active and Recently Administ ered Medications (unrecognized section and content) Medication Order 01/20/2023 01/21/2023 01/22/2023 Acetaminophen (TYLENOL) tablet 975 mg 975 mg, Oral, EVERY 6 HOURS, First dose on Tue01/17/23 at 1830, Until Discontinued, Maximum dose of acetaminophen is 4000 mg from all sources in 24 hours., Post-op/Post-Proc 0554 (Given - Provider: Meg Baron RN)1236 (Given - Provider: Shanda Nguyen, RN)1723 (Not Given - Provider: Ruth Mahan - Reason: Other - Comment: Cumulative overdose warning.)2346 (Not Given - Provider: Meg Baron RN - Reason: Patient/family refused - Comment: upset stomach, pt refused) 0504 (Given - Provider: Meg Baron RN)1156 (Given - Provider: Hector Suazo, DORCAS)1802 (Given - Provider: Hector Suazo, DORCAS)2338 (Given - Provider: Marissa Lin, DORCAS) 0533 (Given - Provider: Marissa Lin RN)1142 (Given - Provider: Velia Christopher RN)1800 (Canceled Entry - Provider: System Discharge - Comment: Automatically canceled at discontinue of medication order) ceFAZolin (ANCEF) 2 g in dextrose 100 mL premix IVPB (CANCELED) 2 g, Intravenous, Administer over 30 Minutes, EVERY 8 HOURS, 30 doses, First dose on Tue01/17/23 at 2200, Last dose on Tue01/27/23 at 1400, Post-op/Post-Proc 0554 ($$New Bag$$ - Provider: Meg Baron RN)0624 (Rate/Dose Change - Provider: Ruth Mahan)0625 (Stopped - Provider: Ruth Mahan)1242 ($$New Bag$$ - Provider: Shanda Nguyen, DORCAS)1313 (Stopped - Provider: Ruth Mahan)2123 ($$New Bag$$ - Provider: Ruth Mahan)2145 (Paused - Provider: Ruth Mahan)2150 (Paused - Provider: Ruth Mahan)2216 (Paused - Provider: Ruth Mahan)222 (Paused - Provider: Ruth Mahan)2226 (Paused - Provider: Ruth Mahan)222 (Restarted - Provider: Ruth Mahan)223 (Rate/Dose Change - Provider: Ruth Mahan)223 (Stopped - Provider: Ruth Mahan) 0504 ($$New Bag$$ - Provider: Meg Baron, RN) cyanocobalamin (VITAMIN B12) tablet 1,000 mcg 1,000 mcg, Oral, DAILY AT BEDTIME, First dose on Tue01/17/23 at 2100, Until Discontinued 2030 (Given - Provider: Ruth Mahan) 2042 (Given - Provider: Altaf Martino RN) Docusate (COLACE) capsule 100 mg 100 mg, Oral, 2 TIMES DAILY, First dose on Tue01/17/23 at 1830, Until Discontinued, Post-op/Post-Proc 0814 (Given - Provider: Shanda Nguyen RN)1714 (Given - Provider: Ruth Mahan) 0934 (Given - Provider: Hector Suazo RN)1803 (Given - Provider: Hector Suazo, DORCAS) 0803 (Given - Provider: Velia Christopher RN)1700 (Canceled Entry - Provider: System Discharge - Comment: Automatically canceled at discontinue of medication order) Enoxaparin Sodium (LOVENOX) injection 40 mg 40 mg, Subcutaneous, EVERY 24 HOURS, First dose on Tue01/18/23 at 1600, Until Discontinued, Indications: DVT/PE prophylaxis, Post-op/Post-Proc 1714 (Given - Provider: Ruth Mahan) 1551 (Given - Provider: Hector Suazo, DORCAS) 1600 (Canceled Entry - Provider: System Discharge - Comment: Automatically canceled at discontinue of medication order) Gabapentin (NEURONTIN) capsule 300 mg 300 mg, Oral, EVERY 8 HOURS, First dose on Tue01/17/23 at 1600, Until Discontinued, Post-op/Post-Proc 0555 (Given - Provider: Meg Baron, DORCAS)1236 (Given - Provider: Shanda Nguyen RN)2123 (Given - Provider: Ruth Mahan) 0504 (Given - Provider: Meg Baron, DORCAS)1551 (Given - Provider: Hector Suazo, RN)2113 (Given - Provider: Altaf Martino, RN) 0533 (Given - Provider: Marissa Lin RN)1400 (Canceled Entry - Provider: System Discharge - Comment: Automatically canceled at discontinue of medication order) Naloxone (NARCAN) injection 0.1 mg(Linked Group 1) 0.1 mg, Intravenous, SEE ADMIN INSTRUCTIONS, Starting on Tue01/17/23 at 1815, Until 01/22/23 at 1935, If RR </= 7 per min and difficult to arouse give naloxone 0.1 mg q 2 mins until RR > 8/min and/or drowsiness abates. Contact provider. If no response is noted after 2 doses, consider other causes of respiratory depression., Post-op/Post-Proc Naloxone (NARCAN) injection 0.4 mg(Linked Group 1) 0.4 mg, Intravenous, SEE ADMIN INSTRUCTIONS, Starting on Tue01/17/23 at 1815, Until 01/22/23 at 1935, If patient APNEIC and difficult to arouse: Give naloxone 0.4 mg q2 minutes until RR> 8/min and call a 'code blue'. If no response is noted after 2 doses, consider other causes of respiratory depression., Post-op/Post-Proc Polyethylene glycol (MIRALAX) packet 17 g (CANCELED) 17 g, Oral, DAILY, First dose on Tue01/18/23 at 0900, Until Discontinued, Post-op/Post-Proc 08 (Given - Provider: Shanda Nguyen RN) 0934 (Given - Provider: Hector Suazo, DORCAS) Polyethylene glycol (MIRALAX) packet 17 g 17 g, Oral, EVERY 12 HOURS, First dose (after last modification) on Tue01/21/23 at 2100, Until Discontinued, Post-op/Post-Proc 2042 (Given - Provider: Altaf Martino, DORCAS) 0803 (Given - Provider: Velia Christopher RN) Senna (SENOKOT) tablet 17.2 mg 17.2 mg, Oral, 2 TIMES DAILY, First dose (after last modification) on Tue01/21/23 at 1700, Until Discontinued, Hold if patient is NPO., Post-op/Post-Proc 180 (Given - Provider: Hector Suazo RN) 0803 (Given - Provider: Velia Christopher RN)1700 (Canceled Entry - Provider: System Discharge - Comment: Automatically canceled at discontinue of medication order) Senna (SENOKOT) tablet 8.6 mg (CANCELED) 8.6 mg, Oral, 2 TIMES DAILY, First dose on Tue01/17/23 at 1830, Until Discontinued, Hold if patient is NPO., Post-op/Post-Proc 0814 (Given - Provider: Shanda Nguyen RN)171 (Given - Provider: Ruth Mahan) 0935 (Given - Provider: Hector Suazo RN) Sodium chloride 0.9% IV solution 250 mL Intravenous, at 20 mL/hr, SEE ADMIN INSTRUCTIONS, Starting on Tue01/17/23 at 1815, Until Tue01/22/23 at 1935, 250mL 0.9NS to be used as carrier fluid for intermittent small volume or piggyback medication administration as needed. Infusion rate of the carrier fluid should be set at 20 mL/hr unless the rate as the intermittent medication is less than 20 mL/hr. For intermittent medications with a rate less than 20 mL/hr set the carrier fluid at that rate of the intermittent or piggy back medication., Post-op/Post-Proc traZODone (DESYREL) tablet 50 mg 50 mg, Oral, DAILY AT BEDTIME, First dose on Tue01/17/23 at 2100, Until Discontinued 2030 (Given - Provider: Ruth Mahan) 2042 (Given - Provider: Altaf Martino, DORCAS) VERIFY LINKED PATCH PLACEMENT(Linked Group 2) Other, EVERY 12 HOURS, First dose on Tue01/17/23 at 0900, Until Discontinued, Confirm continued adhesion of scopolamine 1.5 mg/72hr patch at documented site. 08 (Canceled Entry - Provider: Shanda Nguyen RN - Comment: patch removed by nightshift)2031 (Canceled Entry - Provider: Ruth Mahan - Comment: no patch) 09 (Patch Verify - Provider: Hector Suazo RN)2249 (Patch Verify - Provider: Altaf Martino RN - Comment: Patch not available. Pharmacy to send a dose) 08 (Canceled Entry - Provider: Velia Christopher, RN) PRN Medication Order 01/20/2023 01/21/2023 01/22/2023 alum/mag hydrox.-simethicone oral suspension 30 mL 30 mL, Oral, EVERY 6 HOURS NEEDED, Starting on Tue01/17/23 at 1815, Until 01/22/23 at 1935, Other, heartburn, Per 5 mL is equivalent to: (Alum-Mag Hydroxide 200-225 mg and Simethicone 20 mg) and (Alum-Mag Hydroxide 200-200 mg and Simethicone 20 mg), Post-op/Post-Proc 0049 (Given - Provider: Meg Baron, RN)0901 (Given - Provider: Shanda Nguyen, DORCAS)1816 (Given - Provider: Ruth Mahan) 0058 (Given - Provider: Meg Baron, DORCAS)2224 (Given - Provider: Altaf Martino, DORCAS) bisacodyl (DULCOLAX) suppository 10 mg (COMPLETED) 10 mg, Rectal, DAILY NEEDED, 2 doses, Starting on Tue01/17/23 at 1815, Until Discontinued, Constipation 2nd Line, if no BM within 24h of milk of 1st line constipation medication, May repeat once. Give if Milk of Magnesia ineffective., Post-op/Post-Proc 1925 (Given - Provider: Ruth Mahan - Comment: milk of mag not ordered.) 1156 (Given - Provider: Hector Suazo, DORCAS) Cyclobenzaprine (FLEXERIL) tablet 5 mg 5 mg, Oral, 3 TIMES DAILY NEEDED, Starting on Tue01/17/23 at 1548, Until 01/22/23 at 1935, Muscle spasms, Post-op/Post-Proc 0815 (Given - Provider: Shanda Nguyen, DORCAS) 0533 (Given - Provider: Marissa Lin RN) Diazepam (VALIUM) tablet 2 mg 2 mg, Oral, EVERY 6 HOURS NEEDED, Starting on Tue01/17/23 at 0544, Until 01/22/23 at 1935, Muscle spasms 0901 (Given - Provider: Shanda Nguyen, DORCAS)1534 (Given - Provider: Ruth Mahan) Ketorolac (TORADOL) injection 15 mg 15 mg, Intravenous, EVERY 6 HOURS NEEDED, Starting on Rosalba 01/20/23 at 1222, Until 01/22/23 at 1935, Severe Pain Melatonin tablet 6 mg 6 mg, Oral, DAILY AT BEDTIME NEEDED, Starting on 01/17/23 at 1815, Until 01/22/23 at 1935, Insomnia, Post-op/Post-Proc Ondansetron (ZOFRAN) tablet 4 mg(Linked Group 3) 4 mg, Oral, EVERY 6 HOURS NEEDED, Starting on 01/17/23 at 1815, Until 01/22/23 at 1935, Nausea / Vomiting, 1st Line, Post-op/Post-Proc 1715 (Given - Provider: Ruth Mahan) 0902 (See Alternative - Provider: Hector Suazo, RN)2042 (See Alternative - Provider: Altaf Martino, RN) Ondansetron 4mg/2ml (ZOFRAN) injection 4 mg(Linked Group 3) 4 mg, Intravenous, EVERY 6 HOURS NEEDED, Starting on 01/17/23 at 1815, Until 01/22/23 at 1935, Nausea / Vomiting, 1st line, If patient unable to tolerate PO., Post-op/Post-Proc 171 (See Alternative - Provider: Ruth Mahan) 0902 (Given - Provider: Hector Suazo, RN)2042 (Given - Provider: Altaf Martino, RN) oxyCODONE (ROXICODONE) tablet 5 mg(Linked Group 4) 5 mg, Oral, EVERY 4 HOURS NEEDED, Starting on Tue01/19/23 at 1545, Until 01/22/23 at 1935, Moderate Pain, Severe Pain, Administer 5mg for pain scale of 1 - 5; Administer 10mg for pain scale 6 - 10. 0355 (See Alternative - Provider: Meg Baron, RN)0814 (See Alternative - Provider: Shanda Nguyen, RN)1236 (See Alternative - Provider: Shanda Nguyen, RN)1715 (See Alternative - Provider: Ruth Mahan) 0345 (See Alternative - Provider: Meg Baron, DORCAS)0934 (See Alternative - Provider: Hector Suazo, RN)1551 (Given - Provider: Hector Suazo, RN) 0202 (Given - Provider: Marissa Lin, RN)1219 (Given - Provider: Velia Christopher, RN) oxyCODONE HCl (ROXICODONE) tablet 10 mg(Linked Group 4) 10 mg, Oral, EVERY 4 HOURS NEEDED, Starting on Tue01/19/23 at 1545, Until 01/22/23 at 1935, Moderate Pain, Severe Pain, Administer 5mg for pain scale of 1 - 5; Administer 10mg for pain scale 6 - 10. 0355 (Given - Provider: Meg Baron, RN)0814 (Given - Provider: Shnada Nguyen, RN)1236 (Given - Provider: Shanda Nguyen, RN)1715 (Given - Provider: Ruth Mahan) 0345 (Given - Provider: Meg Baron, RN)0934 (Given - Provider: Hector Suazo, DORCAS)1551 (See Alternative - Provider: Hector Suazo RN) 0202 (See Alternative - Provider: Marissa Lin RN)1219 (See Alternative - Provider: Velia Christopher, DORCAS) Polyvinyl Alcohol-Povidone PF (REFRESH) ophthalmic solution 1 drop 1 drop, Both Eyes, EVERY 2 HOURS NEEDED, Starting on Tue01/17/23 at 1815, Until 01/22/23 at 1935, Dry Eyes, Patient may self-administer., Post-op/Post-Proc Prochlorperazine (COMPAZINE) injection 10 mg 10 mg, Intravenous, EVERY 6 HOURS NEEDED, Starting on Tue01/17/23 at 1815, Until 01/22/23 at 1935, Nausea / Vomiting, 2nd Line, If unrelieved by Ondansetron. , Post-op/Post-Proc Prochlorperazine (COMPAZINE) injection 10 mg(Linked Group 5) 10 mg, Intravenous, EVERY 4 HOURS NEEDED, Starting on Tue01/17/23 at 1815, Until 01/22/23 at 1935, Nausea / Vomiting, 2nd line, For IV route: dilute dose with 10mL normal saline and give by slow IV push at a rate of 5mg/min. Maximum of 40mg/day., Post-op/Post-Proc 1815 (See Alternative - Provider: Ruth Mahan)2218 (Given - Provider: Ruth Mahan) Prochlorperazine (COMPAZINE) tablet 10 mg(Linked Group 5) 10 mg, Oral, EVERY 4 HOURS NEEDED, Starting on Tue01/17/23 at 1815, Until 01/22/23 at 1935, Nausea / Vomiting, 2nd line, Post-op/Post-Proc 1815 (Given - Provider: Ruth Mahan)2218 (See Alternative - Provider: Ruth Mahan) sodium phosphate w/sodium biphosphate (FLEETS) enema 1 enema 1 enema, Rectal, DAILY NEEDED, Starting on Tue01/21/23 at 1600, Until 01/22/23 at 1559, Other, Constipation - if suppository is not effective., use per package instructions 1601 (Given - Provider: Hector Suazo RN) Linked Groups Order Group 1: Naloxone (NARCAN) injection 0.1 mgJump to med 0.1 mg, Intravenous, SEE ADMIN INSTRUCTIONS, Starting on Tue01/17/23 at 1815, Until 01/22/23 at 1935
If RR </= 7 per min and difficult to arouse give naloxone 0.1 mg q 2 mins until RR > 8/min and/or drowsiness abates. Contact provider. If no response is noted after 2 doses, consider other causes of respiratory depression.
Post-op/Post-Proc Or Naloxone (NARCAN) injection 0.4 mgJump to med 0.4 mg, Intravenous, SEE ADMIN INSTRUCTIONS, Starting on Tue01/17/23 at 1815, Until 01/22/23 at 1935
If patient APNEIC and difficult to arouse: Give naloxone 0.4 mg q2 minutes until RR> 8/min and call a 'code blue'. If no response is noted after 2 doses, consider other causes of respiratory depression.
Post-op/Post-Proc Group 2: Scopolamine (TRANSDERM-SCOP) patch 1 patch (COMPLETED) 1 patch, Transdermal, ONCE, 1 dose, On Tue01/17/23 at 0715
Apply patch to site behind the ear. Rotate sites for each application. Do not cut or alter patch. Each patch delivers 1 mg over 72 hours.
And VERIFY LINKED PATCH PLACEMENTJump to med Other, EVERY 12 HOURS, First dose on Tue01/17/23 at 0900, Until Discontinued
Confirm continued adhesion of scopolamine 1.5 mg/72hr patch at documented site.
Group 3: Ondansetron (ZOFRAN) tablet 4 mgJump to med 4 mg, Oral, EVERY 6 HOURS NEEDED, Starting on Tue01/17/23 at 1815, Until 01/22/23 at 1935, Nausea / Vomiting, 1st Line, Post-op/Post-Proc Or Ondansetron 4mg/2ml (ZOFRAN) injection 4 mgJump to med 4 mg, Intravenous, EVERY 6 HOURS NEEDED, Starting on Tue01/17/23 at 1815, Until 01/22/23 at 1935, Nausea / Vomiting, 1st line
If patient unable to tolerate PO.
Post-op/Post-Proc Group 4: oxyCODONE (ROXICODONE) tablet 5 mgJump to med 5 mg, Oral, EVERY 4 HOURS NEEDED, Starting on Tue01/19/23 at 1545, Until 01/22/23 at 1935, Moderate Pain, Severe Pain
Administer 5mg for pain scale of 1 - 5; Administer 10mg for pain scale 6 - 10.
Or oxyCODONE HCl (ROXICODONE) tablet 10 mgJump to med 10 mg, Oral, EVERY 4 HOURS NEEDED, Starting on Tue01/19/23 at 1545, Until 01/22/23 at 1935, Moderate Pain, Severe Pain
Administer 5mg for pain scale of 1 - 5; Administer 10mg for pain scale 6 - 10.
Group 5: Prochlorperazine (COMPAZINE) injection 10 mgJump to med 10 mg, Intravenous, EVERY 4 HOURS NEEDED, Starting on Tue01/17/23 at 1815, Until 01/22/23 at 1935, Nausea / Vomiting, 2nd line
For IV route: dilute dose with 10mL normal saline and give by slow IV push at a rate of 5mg/min. Maximum of 40mg/day.
Post-op/Post-Proc Or Prochlorperazine (COMPAZINE) tablet 10 mgJump to med 10 mg, Oral, EVERY 4 HOURS NEEDED, Starting on 01/17/23 at 1815, Until 01/22/23 at 1935, Nausea / Vomiting, 2nd line, Post-op/Post-Proc FOR RECORDS PERTAINING TO PATIENTS WHO ARE OR HAVE BEEN ENROLLED IN A CHEMICAL DEPENDENCY/SUBSTANCEABUSE PROGRAM, SOME INFORMATION MAY BE OMITTED. This clinical summary was aggregated from multiple sources. Caution should be exercised in using it in the provision of clinical care. This summary normalizes information from multiple sources, and as a consequence, information in this document may materially change the coding, format and clinical context of patient data. In addition, data may be omitted in some cases. CLINICAL DECISIONS SHOULD BE BASED ON THE PRIMARY CLINICAL RECORDS. [employer] provides no warranty or guarantee of the accuracy or completeness of information in this document.
[2024-09-15] MEDS: Ketorolac 30 MG/ML Syringe IV (02:24)
[2024-09-15] MEDS: 0.9% Normal Saline (1000mL) 1,000 ML 999 ML IV (02:24)
[2024-09-15 03:48] VITALS: BP 120/67; PULSE 68; RESP 15; TEMP 36.6; O2SAT 99
== END 2024-09-15 04:13 | disposition home or self-care (01) ==
PROVIDERS: Emergency Provider Emergency Medicine; PCP Nurse Practitioner Family; Visit Provider Emergency Medicine
DX: M54.9 Dorsalgia, unspecified (principal); S39.012A Strain of muscle, fascia and tendon of lower back, initial encounter; M62.830 Muscle spasm of back; F41.9 Anxiety disorder, unspecified; F17.210 Nicotine dependence, cigarettes, uncomplicated; Z96.698 Presence of other orthopedic joint implants; X50.0XXA Overexertion from strenuous movement or load, initial encounter; Y93.89 Activity, other specified; Z79.899 Other long term (current) drug therapy
CPT/HCPCS: 72128; 72131; 96361; 96374; 99283; A4216

== ENCOUNTER → 2025-01-30 | Outpatient (CLI) | payer MEDICAID, SELFPAY | END | disposition home or self-care (01) | LOC: MTLAB 15:35 | PROVIDERS: PCP Nurse Practitioner Family; Referring Provider Orthopaedic Surgery; Visit Provider Orthopaedic Surgery | DX: N28.9 Disorder of kidney and ureter, unspecified (principal) | CPT/HCPCS: 36415; 82565 ==

== ENCOUNTER → 2025-02-20 | Outpatient (CLI) | payer MEDICAID, SELFPAY ==
--- NOTE | 2025-02-20 09:20 | MRI_ITS ---
PROCEDURE: SPINE LUMBAR W/WO CONTRAST 02/20/2025 REASON FOR EXAM: Clinical history of lumbar radiculopathy. TECHNIQUE: Procedure Code: [id number] Modality: MR Procedure: SPINE LUMBAR W/WO CONTRAST Multiplanar and multisequence images were obtained without and with intravenous gadolinium-based contrast administration. CONTRAST: Clariscan VOLUME: 13 mL COMPARISON: MRI lumbar spine 02/18/2023. FINDINGS: For the purposes of this report, the most caudal rectangular vertebral body will be designated L5. The next most caudal trapezoidal shaped vertebral body will be designated S1. The intervening disc at the lumbosacral angle is designated L5-S1. Magnetic susceptibility from spinal hardware limits evaluation of adjacent structures. Partially visualized thoracolumbar fusion up to L2. The normal lumbar lordosis is maintained. The lumbar vertebral bodies are normal in height. The lumbar vertebral bodies are normal in alignment. There is no focal enhancing and marrow replacing lesion in the lumbar spine. There is no evidence of signal abnormality in the imaged distal spinal cord or abnormal enhancement within the lumbar spinal canal. The conus medullaris terminates at the level of L1. T12-L1: No significant spinal canal stenosis. L1-L2: No significant spinal canal stenosis or neural foraminal narrowing. L2-L3: No significant spinal canal stenosis or neural foraminal narrowing. L3-L4: No significant spinal canal stenosis or neural foraminal narrowing. Bilateral facet arthrosis with joint effusions and ligamentum flavum hypertrophy. L4-L5: No significant spinal canal stenosis or neural foraminal narrowing. Bilateral facet arthrosis with joint effusions and ligamentum flavum hypertrophy. L5-S1: Interval new central disc protrusion contacts the ventral thecal sac. No significant spinal canal or neural foraminal stenosis. MRI/Spine Lumbar W/WO Contrast IMPRESSION: 1. Susceptibility artifact from spinal hardware limits evaluation of adjacent s tructures. Partially visualized thoracolumbar fusion. 2. No pathologic enhancement in the lumbar spine. 3. Mild progressive lumbar spondylosis most prominent at L5-S1 without high-gra de spinal canal or neural foraminal stenosis. Reading Location: [id number]
== END | disposition home or self-care (01) ==
LOC: MRI 09:17
PROVIDERS: PCP Nurse Practitioner Family; Referring Provider Student in an Organized Health Care Education/Training Program; Visit Provider Student in an Organized Health Care Education/Training Program
DX: M54.16 Radiculopathy, lumbar region (principal); M43.25 Fusion of spine, thoracolumbar region
CPT/HCPCS: 72158; A9575